=== PATIENT | male | born 1950 | race Caucasian/White ===

== ENCOUNTER 2020-06-15 08:16 | Outpatient (NON) | payer MEDICARE, SELFPAY ==
[2020-06-16 01:03] LABS: SARS-CoV-2 RNA PCR Negative
== END 2020-06-15 08:17 ==
PROVIDERS: PCP Physician Assistant; Visit Provider Physician Assistant
DX: Z20.828 Contact with and (suspected) exposure to other viral communicable diseases (principal)
CPT/HCPCS: 87635; C9803; U0003

== ENCOUNTER 2021-04-11 02:19 | Day surgery (SDC) | payer MEDICARE, SELFPAY ==
[2021-04-02 09:08] VITALS: BMI 36.6
--- NOTE | 2021-04-10 12:48 | PM.HPGS ---
History of Present Illness History of Present Illness Consent: Risks, benefits, and alternatives have been discussed and questions answered. Patient agrees to proceed with procedure. Chief complaint: hx of colon polyps Z12.11 Narrative: Lamin Ann is a 71 year old male referred for colon cancer screening. He had a couple of polyps removed 6 years ago Review of Systems Review of Systems: All systems reviewed & are unremarkable except as noted in HPI and below PMFSH Past Medical History Medical History CKD (chronic kidney disease) stage V COPD (chronic obstructive pulmonary disease) History of heart attack 2009 Hyperlipidemia Hypertension Surgical History Surgical History History of coronary artery stent placement x1 Family History Family History Father Family history of primary malignant neoplasm of liver Social History Social History Years smoked: 50 Smoking status: Former smoker Tobacco type: cigarettes Alcohol intake: current Drinks per week: 3 Substance use: never Substance use type: does not use Living arrangements: with family Spiritual care concerns: No Meds Home Medications and Allergies Home Medications Medication Instructions Recorded Confirmed Type amlodipine 10 mg PO DAILY 04/02/21 04/11/21 History atorvastatin 10 mg PO DAILY 04/02/21 04/11/21 History calcitriol 0.25 mcg PO DAILY 04/02/21 04/11/21 History cefuroxime axetil 500 mg PO DAILY 04/02/21 04/11/21 History fluticasone furoate-vilanterol 1 inh INHALATION PRN PRN 04/02/21 04/11/21 History [Breo Ellipta] hydralazine 25 mg PO DAILY 04/02/21 04/11/21 History ipratropium-albuterol [Combivent 1 spray INHALATION PRN PRN 04/02/21 04/11/21 History Respimat] methylprednisolone 4 mg PO DAILY 04/02/21 04/11/21 History metoprolol tartrate 100 mg PO DAILY 04/02/21 04/11/21 History Allergies Allergy/AdvReac Type Severity Reaction Status Date / Time No Known Allergies Allergy Verified 04/11/21 08:10 Exam Resp: Auscultation: clear to auscultation bilaterally Cardio: Rate: regular rate Rhythm: regular rhythm GI: GI Palp: Yes Soft to palpation and No Tenderness to palpation present (GI) Assessment and Plan Assessment and plan (1) Colon cancer screening: Code(s): Z12.11 - Encounter for screening for malignant neoplasm of colon Status: Acute Assessment and Plan: Colonoscopy with possible biopsy or polypectomy or cautery or injection of substances.
--- NOTE | 2021-04-10 13:28 | WPDANESEPPF ---
Anes - Initial Pre Proc Eval Procedure: Operation Date: 04/11/21 09:00 Proposed Procedures p Screening Colonoscopy - Bebeto Rojas MD Date/Time: 04/10/21 13:28 Surgeon: Bebeto Rojas MD Pre Op Diagnosis: hx of colon polyps Z12.11 Patient Data Age: 71 Gender: M Height: 1.88 m Weight: 129.54 kg Allergies Allergy/AdvReac Type Severity Reaction Status Date / Time No Known Allergies Allergy Verified 04/11/21 08:10 Home Medications Medication Instructions Recorded Confirmed Type amlodipine 10 mg PO DAILY 04/02/21 04/11/21 History atorvastatin 10 mg PO DAILY 04/02/21 04/11/21 History calcitriol 0.25 mcg PO DAILY 04/02/21 04/11/21 History cefuroxime axetil 500 mg PO DAILY 04/02/21 04/11/21 History fluticasone furoate-vilanterol 1 inh INHALATION PRN PRN 04/02/21 04/11/21 History [Breo Ellipta] hydralazine 25 mg PO DAILY 04/02/21 04/11/21 History ipratropium-albuterol [Combivent 1 spray INHALATION PRN PRN 04/02/21 04/11/21 History Respimat] methylprednisolone 4 mg PO DAILY 04/02/21 04/11/21 History metoprolol tartrate 100 mg PO DAILY 04/02/21 04/11/21 History Patient hx anesthesia problems: none Family hx anesthesia problems: none PMFSH Past Medical History Medical History CKD (chronic kidney disease) stage V COPD (chronic obstructive pulmonary disease) History of heart attack 2009 Hyperlipidemia Hypertension Surgical History Surgical History History of coronary artery stent placement x1 Family History Family History Father Family history of primary malignant neoplasm of liver Social History Social History Years smoked: 50 Smoking status: Former smoker Tobacco type: cigarettes Alcohol intake: current Drinks per week: 3 Substance use: never Substance use type: does not use Living arrangements: with family Spiritual care concerns: No Anes - Eval Final PreProcedure Day of Procedure 04/10/21 13:28 Patient weight: obese Heart: regular rate and rhythm Lungs: clear to auscultation and normal air movement Airway: Mallampati scale class II Neurological: alert and oriented Last oral intake: >/= 8 hours ASA classification: III Emergent: no Anesthesia type and monitoring: general GIVS and standard monitoring Informed Consent: The patient's anesthetic plan and its attendant risks and benefits were discussed with the patient/family/POA. Questions were solicited and answers provided to the satisfaction of the patient/family/POA.
[2021-04-11 08:12] VITALS: BP 121/92; PULSE 104; RESP 22; TEMP 36; O2SAT 95
[2021-04-11] MEDS: SODIUM CHLORIDE 0.9% IV 500 ML 10 ML IV CONT (08:22)
[2021-04-11 09:16] VITALS: BP 112/67; PULSE 91; RESP 30; O2SAT 97
[2021-04-11 09:26] VITALS: BP 113/64; PULSE 88; RESP 26; O2SAT 96
[2021-04-11 09:36] VITALS: BP 128/80; PULSE 87; RESP 21; O2SAT 95
== END 2021-04-11 09:56 | disposition home or self-care (01) ==
PROVIDERS: PCP Physician Assistant; Visit Provider Internal Medicine Gastroenterology
PROC: 0DJD8ZZ Inspection of Lower Intestinal Tract, Via Natural or Artificial Opening Endoscopic (ICD-10-PCS; CPT 45378; principal; 2021-04-11 09:00)
DX: Z12.11 Encounter for screening for malignant neoplasm of colon (principal); D12.2 Benign neoplasm of ascending colon; K57.30 Diverticulosis of large intestine without perforation or abscess without bleeding; I12.0 Hypertensive chronic kidney disease with stage 5 chronic kidney disease or end stage renal disease; N18.5 Chronic kidney disease, stage 5; I25.2 Old myocardial infarction; J44.9 Chronic obstructive pulmonary disease, unspecified; E78.5 Hyperlipidemia, unspecified; Z95.5 Presence of coronary angioplasty implant and graft; Z87.891 Personal history of nicotine dependence
CPT/HCPCS: 45385; 45381; 45380; 88305; J2704; J7040

== ENCOUNTER 2021-05-04 12:09 | Emergency (ER) | payer MEDICARE, SELFPAY ==
[2021-05-04 12:25] VITALS: BP 103/63; PULSE 94; RESP 18; TEMP 36.4; O2SAT 96
--- NOTE | 2021-05-04 13:12 | ED.SKABFB ---
HPI - Skin/Abscess/Foreign Bdy General Chief complaint: Skin/Abscess/Foreign Body Stated complaint: Insect Bite Lt Foot History of Present Illness HPI narrative: Patient is a 71-year-old male who presents complaining of left foot pain. Patient reports pain to left great toe with surrounding erythema x2 days. Reports difficulty ambulating and pain with ambulating. He denies injury. He denies taking vdzr-nsd-xyoskfw medications for pain prior to arrival. Patient denies fever, chills, body aches or other signs of systemic illness. Patient has a significant medical history which includes ESRD, gout, COPD and hypertension among others. Related Data Home Medications Medication Instructions Recorded Confirmed Combivent Respimat 1 spray INHALATION PRN PRN 04/02/21 05/04/21 amlodipine 10 mg PO DAILY 04/02/21 05/04/21 atorvastatin 10 mg PO DAILY 04/02/21 05/04/21 calcitriol 0.25 mcg PO DAILY 04/02/21 05/04/21 hydralazine 25 mg PO BID 04/02/21 05/04/21 aspirin [Adult Aspirin] 81 mg PO DAILY 05/04/21 05/04/21 furosemide 80 mg PO BID 05/04/21 05/04/21 hjyakrqtfxfs-adz-aswn-FA-vit K 1 tablet PO DAILY 05/04/21 05/04/21 [Adults Multivitamin] omega-3 fatty acids-vitamin E 2 cap PO BID 05/04/21 05/04/21 [Fish Oil] sodium bicarbonate 1,300 mg PO TID 05/04/21 05/04/21 Allergies Allergy/AdvReac Type Severity Reaction Status Date / Time No Known Allergies Allergy Verified 05/04/21 13:06 Review of Systems Review of Systems: CONSTITUTIONAL: Denies fever, chills, or sweats. EYES: Denies visual changes, redness, or discharge. ENT: Denies rhinorrhea, congestion, sore throat, or otalgia. CARDIOVASCULAR: Denies chest pain, palpitations, or edema. RESPIRATORY: Denies cough or dyspnea. GASTROINTESTINAL: Denies abdominal pain, nausea, vomiting, or diarrhea. GENITOURINARY: Denies dysuria or hematuria. SKIN: Denies rash or itching. MUSCULOSKELETAL: Reports left great toe pain NEUROLOGIC: Denies headache, numbness, dizziness, or weakness. PSYCHIATRIC: Denies anxiety or depression. [facility] Past Medical History Medical History CKD (chronic kidney disease) stage V COPD (chronic obstructive pulmonary disease) Gout History of heart attack 2010 Hyperlipidemia Hypertension Prostate cancer Surgical History Surgical History H/O prostatectomy History of coronary artery stent placement x1 Family History Family History Father Family history of primary malignant neoplasm of liver Social History Social History Years smoked: 50 Smoking status: Former smoker Tobacco type: cigarettes Alcohol intake: current Drinks per week: 3 Substance use: never Substance use type: does not use Spiritual care concerns: No Comments At the time of signature, I have reviewed and agree with nursing past medical, surgical, social, and family history unless otherwise noted. Please see nursing chart for further information. There is no relevant family history pertinent to the presenting complaint. Exam Narrative: GENERAL: Well-appearing, well-nourished, and in no acute distress. HEAD: Normocephalic, atraumatic. EYES: EOMI. No redness or drainage. Conjunctiva are normal. ENT: Mucous membranes pink and moist. CHEST: No respiratory distress. HEART: Regular rate and rhythm. EXTREMITIES: Normal range of motion. Erythema and edema to area surrounding first MTP. Tenderness with palpation. SKIN: Warm, dry, no rash. NEURO: No focal deficits. Alert and oriented x3. Gait steady. PSYCH: Normal affect. No signs of depression or anxiety. Course Vital Signs Vital signs: Vital Signs Temperature 36.4 C 05/04/21 12:25 Pulse Rate 94 05/04/21 12:25 Respiratory Rate 18 05/04/21 12:25 Blood Pressure 103/63 05/04/21
== END 2021-05-04 13:33 | disposition home or self-care (01) ==
PROVIDERS: Emergency Provider Nurse Practitioner; PCP Physician Assistant
DX: M10.9 Gout, unspecified (principal); Z87.891 Personal history of nicotine dependence; J44.9 Chronic obstructive pulmonary disease, unspecified; E78.5 Hyperlipidemia, unspecified; I10 Essential (primary) hypertension; I12.0 Hypertensive chronic kidney disease with stage 5 chronic kidney disease or end stage renal disease; N18.6 End stage renal disease; I25.2 Old myocardial infarction; Z85.46 Personal history of malignant neoplasm of prostate; Z90.79 Acquired absence of other genital organ(s); Z95.5 Presence of coronary angioplasty implant and graft
CPT/HCPCS: 99213; G0463

== ENCOUNTER → 2021-08-07 09:57 | Outpatient (CLI) | payer MEDICARE, SELFPAY ==
[2021-08-08 20:55] LABS: SARS-CoV-2 RNA PCR Positive
== END ==
PROVIDERS: PCP Physician Assistant; Visit Provider Physician Assistant
DX: U07.1 COVID-19 (principal)
CPT/HCPCS: C9803; U0003; U0005

== ENCOUNTER → 2021-08-20 13:03 | Outpatient (CLI) | payer MEDICARE, SELFPAY ==
--- NOTE | ~2021-08-20 | XR_ITS ---
EXAMINATION: XR chest 2V EXAM DATE: 08/20/2021 13:33 INDICATION: Acute exacerbation of chronic obstructive airways disease. TECHNIQUE: Frontal and lateral projections of the chest obtained and reviewed. Comparison is made to prior examination from 01/12/2018 FINDINGS: There is ill-defined right basilar airspace disease laterally which was not present on aldo or study. Probably pneumonia or atelectasis. Mild hyperinflation. Cardiomediastinal silhouette is nor mal. There is no pneumothorax suspected. There are no pleural effusions. IMPRESSION: Right basilar subsegmental pneumonia or atelectasis. Reviewed, dictated and finalized at location G. ORT GUIDE
== END ==
PROVIDERS: PCP Physician Assistant; Visit Provider Physician Assistant
DX: J44.1 Chronic obstructive pulmonary disease with (acute) exacerbation (principal); R91.8 Other nonspecific abnormal finding of lung field
CPT/HCPCS: 71046

== ENCOUNTER → 2021-08-29 12:27 | Outpatient (CLI) | payer MEDICARE, SELFPAY ==
--- NOTE | ~2021-08-29 | XR_ITS ---
XR chest 2V 08/29/2021 13:03 Indication: Covid pneumonia Procedure: 2 view chest Comparison: 08/20/2021 Findings: Bibasilar airspace disease, right greater than left, consistent with pneumonia. Borderline heart size. No significant effusion. No acute osseous abnormality. Impression: 1: Bibasilar airspace disease, right greater than left, compatible with pneumonia. Reviewed, dictated and finalized at location B. NI RELATIONS OFFICER Impression: 1: Bibasilar airspace disease, right greater than left, compatible with pneumon ia.
== END ==
PROVIDERS: PCP Physician Assistant; Visit Provider Physician Assistant
DX: U07.1 COVID-19 (principal); J12.82 Pneumonia due to coronavirus disease 2019; R91.8 Other nonspecific abnormal finding of lung field
CPT/HCPCS: 71046

== ENCOUNTER 2021-10-01 11:20 | Emergency (ER) | payer MEDICARE, SELFPAY ==
[2021-10-01 11:28] VITALS: BP 141/68; PULSE 96; RESP 40; TEMP 36.4; O2SAT 93
--- NOTE | 2021-10-01 11:29 | ED.URI ---
HPI - URI/Sore Throat General Chief Complaint: Shortness of Breath/Dyspnea Stated Complaint: shortness of breath Time Seen by Provider: 10/01/21 11:40 Source: patient, RN notes reviewed and old records reviewed Mode of arrival: ambulatory Limitations: no limitations History of Present Illness HPI Narrative: 71-year-old male patient [facility] with complaints of shortness of breath and difficulty breathing. Reports diagnosed with Covid pneumonia in August and has had difficulty breathing since then. Spoke with PCP this morning who encouraged patient to go to the emergency room. Patient and daughter reports patient has had difficulty breathing for the last 2 weeks. Patient is not on oxygen at home. Has taken Combivent inhaler as needed. Not taking Breo inhaler. Has history of COPD and chronic kidney disease. Denies fever. MD elicited complaint: cough, sore throat, rhinorrhea and nasal congestion Related Data Home Medications Medication Instructions Recorded Confirmed Combivent Respimat 1 spray INHALATION PRN PRN 04/02/21 05/04/21 amlodipine 10 mg PO DAILY 04/02/21 05/04/21 atorvastatin 10 mg PO DAILY 04/02/21 05/04/21 calcitriol 0.25 mcg PO DAILY 04/02/21 05/04/21 hydralazine 25 mg PO BID 04/02/21 05/04/21 aspirin [Adult Aspirin] 81 mg PO DAILY 05/04/21 05/04/21 furosemide 80 mg PO BID 05/04/21 05/04/21 qhscvjrkurow-osl-wcpn-FA-vit K 1 tablet PO DAILY 05/04/21 05/04/21 [Adults Multivitamin] omega-3 fatty acids-vitamin E 2 cap PO BID 05/04/21 05/04/21 [Fish Oil] sodium bicarbonate 1,300 mg PO TID 05/04/21 05/04/21 Allergies Allergy/AdvReac Type Severity Reaction Status Date / Time No Known Allergies Allergy Verified 10/01/21 12:01 Review of Systems Review of Systems: CONSTITUTIONAL: Denies malaise, chills, sweats, or fever. EYES: Denies visual changes, redness, or discharge. ENT: Reports rhinorrhea, congestion, sinus pain, otalgia and sore throat. CARDIOVASCULAR: Denies chest pain, palpitations, or edema. RESPIRATORY: Reports cough. Denies dyspnea. GASTROINTESTINAL: Denies abdominal pain, nausea, vomiting, diarrhea SKIN: Denies rash or itching. MUSCULOSKELETAL: Denies myalgia. NEUROLOGIC: Denies headache. All systems reviewed & are unremarkable except as noted in HPI and below PMFSH Past Medical History Medical History CKD (chronic kidney disease) stage V COPD (chronic obstructive pulmonary disease) Gout History of heart attack 2010 Hyperlipidemia Hypertension Prostate cancer Surgical History Surgical History H/O prostatectomy History of coronary artery stent placement x1 Family History Family History Father Family history of primary malignant neoplasm of liver Social History Social History Years smoked: 50 Smoking status: Former smoker Tobacco type: cigarettes Alcohol intake: current Drinks per week: 3 Substance use: never Substance use type: does not use Spiritual care concerns: No Comments At time of signature, agree with nursing past medical, surgical, social and family history. There is no relevant family history pertinent to the presenting complaint Exam Narrative: GENERAL: present in exam room. Short of breath, difficulty breathing, increased work of effort with breathing. Tripoding sitting on the gurney. HEAD: Normocephalic EYES: Conjunctivae clear ENT: Nares patent and clear discharge. Mucous membranes moist. NECK: Supple. No lymphadenopathy CHEST: Clear to auscultation anterior and posterior. Decreased air movement throughout lung billy. No wheezing, rhonchi, rales, or stridor. Difficulty speaking in full sentences. HEART: Regular rate and rhythm. No murmur heard. SKIN: Pale, warm, dry, no rash. NEURO
[2021-10-01 11:33] VITALS: O2SAT 89
[2021-10-01 11:36] VITALS: O2SAT 94
== END 2021-10-01 11:55 | disposition short-term general hospital (02) ==
PROVIDERS: Emergency Provider Nurse Practitioner Family; PCP Physician Assistant
DX: R06.03 Acute respiratory distress (principal); Z86.16 Personal history of COVID-19; J44.9 Chronic obstructive pulmonary disease, unspecified; I12.0 Hypertensive chronic kidney disease with stage 5 chronic kidney disease or end stage renal disease; N18.5 Chronic kidney disease, stage 5; I25.2 Old myocardial infarction; E78.5 Hyperlipidemia, unspecified; Z85.46 Personal history of malignant neoplasm of prostate; Z90.79 Acquired absence of other genital organ(s); Z95.5 Presence of coronary angioplasty implant and graft; Z87.891 Personal history of nicotine dependence
CPT/HCPCS: 99215; G0463

== ENCOUNTER 2021-10-01 12:26 | Inpatient (IN) | payer MEDICARE, SELFPAY ==
[2021-10-01] VITALS (29 sets, daily range): BP systolic 129–173; BP diastolic 74–106; PULSE 81–112; RESP 18–29; TEMP 35.8–36.7; O2SAT 90–98; BMI 37.2; BMI 37.0
--- NOTE | ~2021-10-01 | XR_ITS ---
XR chest 2V 10/01/2021 12:49 Indication: Shortness breath. Hypertension. Procedure: AP and lateral views of the chest Comparison: Comparison to multiple prior studies sequentially, with oldest reviewed study dated 12/20. Findings: Bibasilar airspace disease which may represent atelectasis and/or pneumonia. Small pleural effusions. Cardiomegaly. No pneumothorax. No edema. Impression: 1: Bibasilar airspace disease may represent pneumonia and/or atelectasis. 2: Small pleural effusions. Reviewed, dictated and finalized at location A. UNTS RECEIVABLE ASSOCIATE Impression: 1: Bibasilar airspace disease may represent pneumonia and/or atelectasis. 2: Small pleural effusions.
--- NOTE | ~2021-10-01 | NM_ITS ---
EXAMINATION: NM pulmonary perfusion DATE: 10/03/2021 12:37 INDICATION: Shortness of breath. TECHNIQUE: 5.5 mCi Tc-99m MAA was administered intravenously for perfusion images. Scintigraphic nisha ges of the chest were obtained. COMPARISON: Chest single view 10/03/2021 FINDINGS: Perfusion images show matched moderate sized and large defects in right lower lobe. There are matched small defects in left lower lobe. IMPRESSION: 1. Nondiagnostic (intermediate probability for pulmonary embolism). Reviewed, dictated and finalized at location A. STMENT BANKING ASSOCIATE
--- NOTE | ~2021-10-01 | US_ITS ---
EXAMINATION: US venous doppler [facility] DATE: 10/04/2021 11:17 INDICATION: Lower limb edema. TECHNIQUE: Grayscale ultrasound images without and with compression and Doppler ultrasound images of the bilateral lower extremity veins were obtained. COMPARISON: None. FINDINGS: The visualized portions of right common femoral vein, profunda (deep) femoral vein, femoral vein, pop liteal vein, peroneal veins, posterior tibial veins, and greater saphenous vein outflow are patent. The visualized portions of left common femoral vein, profunda femoral vein, femoral vein, popliteal v ein, peroneal veins, posterior tibial veins, and greater saphenous vein outflow are patent. IMPRESSION: 1. No deep venous thrombosis. Reviewed, dictated and finalized at location A. ITION MAKING MACHINE OPERATOR
--- NOTE | ~2021-10-01 | XR_ITS ---
XR chest 1V portable DATE: 10/03/2021 05:49 INDICATION: Shortness of breath TECHNIQUE: Portable AP chest on 10/03/2021 0529 hours COMPARISON: 10/01/2021 AP and lateral chest FINDINGS: There is cardiomegaly. There is mild pulmonary vascular congestion. There are Gina B-line s and mild prominence of minor fissure, suggesting pulmonary interstitial and subpleural edema. There are bilateral mild pleural effusions, right greater than left. There are bibasilar lower lung infiltrates and/atelectasis, also greater on the right. Diffuse osteopenia. IMPRESSION: Cardiomegaly, congestive changes including subpleural, pulmonary interstitial edema and m ild pleural effusions Bilateral basilar infiltrates, right greater than left, which may be due to pneumonia, aspiration Pulmonary interstitial and subpleural edema appear new since 10/01/2021 Reviewed, dictated and finalized at location A. ET PRINTING OPERATOR IMPRESSION: Cardiomegaly, congestive changes including subpleural, pulmonary in terstitial edema and mild pleural effusions Bilateral basilar infiltrates, right greater than left, which may be due to pne umonia, aspiration Pulmonary interstitial and subpleural edema appear new since 10/01/2021
--- NOTE | 2021-10-01 12:33 | ECG_ITS ---
Measurements Intervals [place] Rate: 87 P: 40 HI: 197 QRS: -79 QRSD: 151 T: 84 QT: 409 QTc: 493 Interpretive Statements SINUS RHYTHM WITH OCCASIONAL SUPRAVENTRICULAR PREMATURE COMPLEXES RIGHT BUNDLE BRANCH BLOCK [120+ ms QRS DURATION, UPRIGHT V1, 40+ ms S IN I/aVL/V4/V5/V6] LEFT ANTERIOR FASCICULAR BLOCK [QRS AXIS <= -45, QR IN I, RS IN II] ABNORMAL ECG NO PREVIOUS ECG AVAILABLE FOR COMPARISON Electronically Signed On 10-01-2021 13:43:30 [employer]ICE ROOM WORKER by Romario Anderson M.D.
--- NOTE | 2021-10-01 12:39 | ED.SOB ---
HPI - SOB/Dyspnea General Chief Complaint: Shortness of Breath/Dyspnea Stated Complaint: dyspnea Time Seen by Provider: 10/01/21 12:39 Source: patient Mode of arrival: EMS Limitations: no limitations History of Present Illness HPI Narrative: The patient is a 71 yo male with a history of COPD, chronic kidney disease, presenting to the emergency department for evaluation of cough, shortness of breath. Patient states he has been feeling unwell over the past week, subjective fever, chills at home. Patient reports productive cough, difficulty breathing. He denies any chest pain. No pleuritic pain. Denies abdominal pain, nausea or vomiting. Denies sore throat, rhinorrhea, congestion, loss of sense of taste or smell. No leg swelling or calf pain. Patient was seen at an urgent care after his primary care physician referred him to come to the hospital, patient states he went to an urgent care because he did not want to be admitted to the hospital. At the urgent care, patient was found to be hypoxic and placed on oxygen via nasal cannula. Patient states he is not on any oxygen at home. Patient is vaccinated and boosted for Covid. No recent sick contacts. Related Data Home Medications Medication Instructions Recorded Confirmed Combivent Respimat 1 spray INHALATION PRN PRN 04/02/21 10/01/21 amlodipine 10 mg PO DAILY 04/02/21 10/01/21 atorvastatin 10 mg PO DAILY 04/02/21 10/01/21 calcitriol 0.25 mcg PO DAILY 04/02/21 10/01/21 hydralazine 25 mg PO BID 04/02/21 10/01/21 aspirin [Adult Aspirin] 81 mg PO DAILY 05/04/21 10/01/21 furosemide 80 mg PO BID 05/04/21 10/01/21 kbovfndhywop-yed-wwts-FA-vit K 1 tablet PO DAILY 05/04/21 10/01/21 [Adults Multivitamin] omega-3 fatty acids-vitamin E 2 cap PO BID 05/04/21 10/01/21 [Fish Oil] sodium bicarbonate 1,300 mg PO TID 05/04/21 10/01/21 Allergies Allergy/AdvReac Type Severity Reaction Status Date / Time No Known Allergies Allergy Unverified 10/01/21 12:24 Review of Systems Review of Systems: CONSTITUTIONAL: Reports subjective fever and chills EYES: Denies visual changes, redness, or discharge. ENT: Denies rhinorrhea, congestion, sore throat, or otalgia. CARDIOVASCULAR: Denies chest pain, palpitations, or edema. RESPIRATORY: Reports cough and shortness of breath GASTROINTESTINAL: Denies abdominal pain, nausea, vomiting, or diarrhea. GENITOURINARY: Denies dysuria or hematuria. SKIN: Denies rash or itching. MUSCULOSKELETAL: Denies back pain, joint pain, or myalgia. NEUROLOGIC: Denies headache, numbness, or weakness. [facility] Past Medical History Medical History (Updated 10/01/21 @ 15:24 by Loretta Jain APRN) CKD (chronic kidney disease) stage V COPD (chronic obstructive pulmonary disease) Gout History of heart attack 2010 Hyperlipidemia Hypertension Prostate cancer Surgical History Surgical History H/O prostatectomy History of coronary artery stent placement x1 Family History Family History Father Family history of primary malignant neoplasm of liver Social History Social History Years smoked: 50 Smoking status: Former smoker Tobacco type: cigarettes Alcohol intake: current Drinks per week: 3 Substance use: never Substance use type: does not use Spiritual care concerns: No Exam Narrative: GENERAL: Awake, alert, conversant HEAD: Normocephalic, atraumatic. EYES: PERRLA and EOMI. ENT: Nares clear, no rhinorrhea or epistaxis. Mucous membranes moist. NECK: Supple. CHEST: Tachypneic, hypoxic on room air, coarse breath sounds bilaterally, decreased aeration at the bases, wheezing bilaterally HEART: Regular rate, sinus rhythm ABDOMEN:Non distended, non tender EXTREMITIES: Normal range of motion. No edema. SKIN: Warm, dry, no rash. NEURO:No focal deficits. Alert and oriented x3 Cou
[2021-10-01 12:41] LABS: Basophils Absolute Auto 0.1 K/mm3 (0.0-0.1); Basophils Percent Auto 0.5 % (0.2-1.2); Eosinophils Absolute Auto 0.2 K/mm3 (0-0.3); Eosinophils Percent Auto 1.9 % (0-4.4); Hematocrit 35.4 % (42.0-52.0); Hemoglobin 11.1 g/dL (14.0-18.0); Immature Granulocyte Absolute 0.03 K/mm3 (0.00-0.031); Immature Granulocyte Percent A 0.3 % (0-0.5); Lymphocytes Absolute Auto 1.32 K/mm3 (0.9-3.2); Lymphocytes Percent Auto 12.9 % (18.3-44.2); Mean Corpuscular HGB Conc 31.4 g/dl (32-36); Mean Corpuscular Hemoglobin 28.8 pg (26-34); Mean Corpuscular Volume 91.9 fl (80-100); Mean Platelet Volume 8.6 fl (7.4-10.4); Monocytes Absolute Auto 0.7 K/mm3 (0.1-0.6); Monocytes Percent Auto 6.4 % (2.6-8.5); Platelet Count Result 310 k/mm3 (150-375); Red Blood Count 3.85 M/mm3 (4.6-6.20); Red Cell Distribution Width 17.9 % (11.5-14.5); White Blood Count 10.2 K/mm3 (4.5-10.0)
[2021-10-01] MEDS: SODIUM CHLORIDE 0.9% IV 1,000 ML 999 ML IV CONT (13:00)
[2021-10-01 13:19] LABS: Basophils Absolute Auto 0.1 K/mm3 (0.0-0.1); Basophils Percent Auto 0.5 % (0.2-1.2); Eosinophils Absolute Auto 0.2 K/mm3 (0-0.3); Eosinophils Percent Auto 1.6 % (0-4.4); Hematocrit 36.8 % (42.0-52.0); Hemoglobin 11.5 g/dL (14.0-18.0); Immature Granulocyte Absolute 0.05 K/mm3 (0.00-0.031); Immature Granulocyte Percent A 0.5 % (0-0.5); Lymphocytes Absolute Auto 1.43 K/mm3 (0.9-3.2); Lymphocytes Percent Auto 13.6 % (18.3-44.2); Mean Corpuscular HGB Conc 31.3 g/dl (32-36); Mean Corpuscular Hemoglobin 28.6 pg (26-34); Mean Corpuscular Volume 91.5 fl (80-100); Monocytes Absolute Auto 0.7 K/mm3 (0.1-0.6); Monocytes Percent Auto 6.4 % (2.6-8.5); Neutrophils Absolute Auto 8.2 K/mm3 (1.3-6.7); Neutrophils Percent Auto 77.4 % (45.5-73.1); Platelet Count Result 321 k/mm3 (150-375); Red Blood Count 4.02 M/mm3 (4.6-6.20); Red Cell Distribution Width 17.7 % (11.5-14.5); White Blood Count 10.5 K/mm3 (4.5-10.0)
[2021-10-01 13:27] LABS: Lactic Acid Reflex 1.3 mmol/L (0.7-2.1)
[2021-10-01 13:30] LABS: INR 1.1; Prothrombin Time 13.7 Seconds (11.1-14.7)
[2021-10-01 13:31] LABS: Alanine Aminotransferase 23 U/L (4-50); Albumin Level 4.4 g/dL (3.5-5.1); Alkaline Phosphatase 108 U/L (38-126); Anion Gap 8 mmol/L (8-16); Aspartate Amino Transferase 26 U/L (17-59); Blood Urea Nitrogen 46 mg/dL (9-20); Calcium 9.6 mg/dL (8.4-10.2); Carbon Dioxide 24 mmol/L (22-30); Chloride 109 mmol/L (98-107); Estimated CRCL calculation 22 ml/min; Estimated Glomerular Filt Rate 19; Glucose 105 mg/dL (65-110); Potassium 4.6 mmol/L (3.4-5.0); Sodium 141 mmol/L (137-145)
[2021-10-01 13:47] LABS: Add Urine Microscopic? YES; Appearance Urine Clear (Clear); Bilirubin Urine Negative (Negative); Blood Urine Negative (Negative); Color Urine Yellow (Yellow); Glucose Urine UA Negative (Negative); Ketones Urine Negative (Negative); Leukocyte Esterase Ur Negative LEU/UL (Negative); Nitrate Urine Negative (Negative); Protein Urine 2+ mg/dL (Negative); RBC Urine 0-2 /hpf (0-2); Specific Grav Ur 1.017 (1.001-1.035); Squamous Epithelial Cell Urine Rare /hpf (Few); Urobilinogen Urine Negative mg/dL (<2.0)
[2021-10-01 13:52] LABS: Troponin I 0.071 ng/mL (0.000-0.034)
[2021-10-01] MEDS: methylPREDNISolone SOD SUCC 125 MG VIAL IV PUSH (14:31)
[2021-10-01] MEDS: ALBUTEROL SULFATE NEB 2.5 MG/0.5 ML INH 5 MG INHALATION ×2 (14:50→20:20)
[2021-10-01] MEDS: IPRATROPIUM BR 0.02% INH SOLN 0.5 MG/2.5 ML VIAL INHALATION ×2 (14:51→20:20)
--- NOTE | 2021-10-01 15:02 | PC.NURSE ---
Called lab and spoke to Jose D to add on BNP
--- NOTE | 2021-10-01 15:15 | PM.IMHP ---
H&P: HPI History of Present Illness Date/Time: 10/01/21 15:15 Patient is a 71-year-old male with a past medical history of COPD, CKD stage 5, NH in 2009 with 1 stent placement, and hypertension. Patient presented to [facility] Emergency Department due to increasing shortness of breath. Patient reports that he was diagnosed with COVID-19 pneumonia in August and has had subsequent respiratory distress since that admission. S patient has been feeling increasingly worse over the past week and reports subjective fever, chills, productive cough and difficulty breathing. He denies any acute chest pain or pleuritic chest pain. Denies abdominal pain, nausea vomiting or diarrhea. No leg swelling or calf pain upon exam. Patient was evaluated at the urgent care this afternoon he was deferred to the emergency department after having episodes of hypoxia, SpO2 in the 80s. Oxygen was applied via nasal cannula the patient was brought to the emergency department. Patient does not wear oxygen at baseline and he has been vaccinated with the COVID booster as well. He denies any recent sick contacts. While in the emergency department labs and imaging were obtained. WBC 10.5, hemoglobin 11.5, hematocrit 36.8, platelets 321, sodium 141, potassium 4.6, chloride 109, BUN 46, creatinine 3.3 and a GFR 19. Patient also had an elevated troponin 0.071, possibly contribute this to CKD stage 5, patient denied chest pain and EKG was performed which revealed normal sinus rhythm with right bundle-branch block. Near my exam the patient was wearing 2 L of oxygen per nasal cannula and did not appear to be in acute distress. Will continue patient's home medications and provide nebulizer treatments and steroids for COPD exacerbation. Chief Complaint: SOB Review of Systems Review of Systems: All systems reviewed & are unremarkable except as noted in HPI and below [facility] Past Medical History Medical History (Updated 10/01/21 @ 15:24 by Loretta Jain APRN) CKD (chronic kidney disease) stage V COPD (chronic obstructive pulmonary disease) Gout History of heart attack 2010 Hyperlipidemia Hypertension Prostate cancer Surgical History Surgical History H/O prostatectomy History of coronary artery stent placement x1 Family History Family History Father Family history of primary malignant neoplasm of liver Social History Social History Years smoked: 50 Smoking status: Former smoker Tobacco type: cigarettes Alcohol intake: current Drinks per week: 3 Substance use: never Substance use type: does not use Spiritual care concerns: No Meds Home Medications and Allergies Home Medications Medication Instructions Recorded Confirmed Type Combivent Respimat 1 spray INHALATION PRN PRN 04/02/21 10/01/21 History amlodipine 10 mg PO DAILY 04/02/21 10/01/21 History atorvastatin 10 mg PO DAILY 04/02/21 10/01/21 History calcitriol 0.25 mcg PO DAILY 04/02/21 10/01/21 History hydralazine 25 mg PO BID 04/02/21 10/01/21 History aspirin [Adult Aspirin] 81 mg PO DAILY 05/04/21 10/01/21 History furosemide 80 mg PO BID 05/04/21 10/01/21 History lzgszhcforem-hrr-dgel-FA-vit K 1 tablet PO DAILY 05/04/21 10/01/21 History [Adults Multivitamin] omega-3 fatty acids-vitamin E 2 cap PO BID 05/04/21 10/01/21 History [Fish Oil] sodium bicarbonate 1,300 mg PO TID 05/04/21 10/01/21 History Allergies Allergy/AdvReac Type Severity Reaction Status Date / Time No Known Allergies Allergy Unverified 10/01/21 12:24 Vital Signs Vital Signs - 24 hr 10/01/21 12:33 10/01/21 13:04 10/01/21 13:09 Temperature 97.6 F Pulse Rate 84 86 Respiratory Rate 24 H 26 H Blood Pressure 147/84 H 150/83 H Pulse Oximetry 95 97 98 10/01/21 13:16 10/01/21 13:31 10/01/21 13:47 Temperature Pulse
--- NOTE | 2021-10-01 15:28 | ECHO_ITS ---
Patient Info Name: Lamin Ann Age: 71 years : 1950 Gender: Male Ht: 74 in Wt: 229 lbs BSA: 2.35 m2 HR: 93 bpm BP: 154 / 85 mmHg Heart Rhythm: Sinus Rhythm Technical Quality: Fair Exam Date: 10/01/2021 4:29 PM Exam Location: [facility] Pulmonary Patient Status: Outpatient Admit Date: 10/01/2021 Staff Ordering Physician: Loretta Jain APRN Nuclear Unit Operator: Nathalia Silverman RDCS Attending Provider: Britt Nicholson MD Referring Physician: Cristobal CHENG; Exam Type: CA echo doppler color flow Study Info Indications - sob Complete two-dimensional, color flow and Doppler transthoracic echocardiogram is performed. Summary 1. Complete two-dimensional, color flow and Doppler transthoracic echocardiogram is performed. 2. Left ventricular systolic function is mild to moderately reduced, estimated at 40-45%. 3. Left ventricular chamber dimension is severely enlarged. 4. There is mildly increased left ventricular wall thickness. 5. The left ventricular diastolic function is abnormal. 6. Left atrial chamber dimension is mildly enlarged. 7. There is mild aortic valve regurgitation. 8. There is mild mitral valve regurgitation. 9. There is mild tricuspid valve regurgitation. 10. The aortic root size at the sinus of Valsalva is mildly dilated. Left Ventricle Left ventricular systolic function is mild to moderately reduced, estimated at 40-45%. Left ventricular chamber dimension is severely enlarged. There is mildly increased left ventricular wall thickness. The left ventricular diastolic function is abnormal. Right Ventricle Right ventricular chamber dimension is normal. Right ventricular systolic function is normal. Left Atria Left atrial chamber dimension is mildly enlarged. Right Atria Right atrial chamber dimension is normal. Atrial Septum Intact interatrial septum visualized by color flow imaging. Aortic Valve The aortic valve is trileaflet. There is mild aortic valve sclerosis. There is no aortic valve stenosis. There is mild aortic valve regurgitation. Pulmonic Valve The pulmonic valve is normal. There is no pulmonic valve stenosis. There is trace pulmonic regurgitation. Mitral Valve The mitral valve has normal leaflets. There is no mitral valve stenosis. There is mild mitral valve regurgitation. Tricuspid Valve The tricuspid valve leaflets are normal. There is no significant tricuspid valve stenosis. There is mild tricuspid valve regurgitation. No pulmonary hypertension, estimated pulmonary arterial systolic pressure is 20 mmHg. Pericardium/Pleural The pericardium appears normal. There is no pericardial effusion. Inferior Vena Cava Normal inferior vena cava with <50% collapse upon inspiration consistent with elevated right atrial pressure, 10 mmHg. Aorta The aortic root size at the sinus of Valsalva is mildly dilated. Left Ventricular Outflow Tract Name Value Normal LVOT 2D LVOT Diameter 2.2 cm LVOT Doppler LVOT Peak Gradient 4 mmHg LVOT Mean Gradient 2 mmHg LVOT VTI
--- NOTE | 2021-10-01 17:56 | ADMGEN ---
This patient, Lamin Ann, was admitted to IMU Room 210-01. Patient/family oriented to hospital policies and general routines including ID bracelet, bed and alarms, visiting hours, pain management, procedures, bathroom and other care routines, personal items, smoking policy, room service/diet, and visiting hours. Information on how to activate the Rapid Response Team has been discussed. Patient/Family are encouraged to report perceived risks to care and to ask questions if they do not understand what they are told or what they should do.
--- NOTE | 2021-10-01 17:59 | PM.IMPN ---
Subjective Date/time seen: 10/01/21 17:59 Objective Data Vital Signs Vital Signs: Vital Signs - 24 hr 10/01/21 12:33 10/01/21 13:04 10/01/21 13:09 Temperature 97.6 F Pulse Rate 84 86 Respiratory Rate 24 H 26 H Blood Pressure 147/84 H 150/83 H Pulse Oximetry 95 97 98 10/01/21 13:16 10/01/21 13:31 10/01/21 13:47 Temperature Pulse Rate 87 88 89 Respiratory Rate 22 H 21 H 18 Blood Pressure 150/81 H 148/86 H 155/89 H Pulse Oximetry 97 96 97 10/01/21 14:02 10/01/21 14:17 10/01/21 14:32 Temperature Pulse Rate 86 86 93 Respiratory Rate 21 H 22 H 26 H Blood Pressure 147/82 H 130/106 H 147/78 H Pulse Oximetry 95 95 95 10/01/21 14:47 10/01/21 14:53 10/01/21 15:01 Temperature Pulse Rate 85 85 83 Respiratory Rate 19 26 H 19 Blood Pressure 139/86 129/78 Pulse Oximetry 95 98 10/01/21 15:03 10/01/21 15:15 10/01/21 15:30 Temperature Pulse Rate 81 86 85 Respiratory Rate 18 22 H 25 H Blood Pressure 134/85 153/99 H Pulse Oximetry 91 91 10/01/21 15:45 10/01/21 16:01 10/01/21 16:15 Temperature Pulse Rate 94 93 90 Respiratory Rate 29 H 24 H 25 H Blood Pressure 164/86 H 156/85 H 151/83 H Pulse Oximetry 92 91 91 10/01/21 16:30 10/01/21 16:46 10/01/21 17:01 Temperature Pulse Rate 91 94 92 Respiratory Rate 22 H 24 H 26 H Blood Pressure 162/83 H 165/85 H 158/85 H Pulse Oximetry 92 90 91 Intake/Output Intake/Output: Intake & Output 09/28/21 09/29/21 09/30/21 10/01/21 23:59 23:59 23:59 23:59 Intake Total 1300 Balance 1300 Meds/Results Medications: Active Medications Generic Name Dose Route Start Last Admin Trade Name Freq PRN Reason Stop Dose Admin Acetaminophen 650 mg 10/01/21 14:52 Acetaminophen 325 Mg Tablet PO Q4H PRN Mild Pain (1-3) or Fever Albuterol 5 mg 10/01/21 20:00 Albuterol Sulfate Neb 2.5 Mg/0.5 Ml Inh INHALATION Q6HRT [facility] Ceftriaxone Sodium/Dextrose 1 gm in 50 mls @ 100 mls/hr 10/02/21 13:00 Rocephin 1 Gm/D5w 50 Ml IVPB Q24H [facility] Azithromycin 500 mg in 250 mls @ 250 mls/hr 10/02/21 13:00 Zithromax IVPB Q24H SIL[facility]O Ipratropium Fletcher 0.5 mg 10/01/21 20:00 Ipratropium Br 0.02% Inh Soln 0.5 Mg/2.5 Ml Vial INHALATION Q6HRT [facility] Methylprednisolone Sodium Succinate 60 mg 10/01/21 18:00 Methylprednisolone Sod Succ 125 Mg Vial IV PUSH Q6HR [facility] Perflutren Lipid Microsphere 0 ml 10/01/21 15:27 Perflutren Lipid Microspheres 1.5 Ml Vial Diluted To 10 Ml Total Volume IV PUSH ONCE PRN adequate visualization Protocol Radiology Results: ITS Impressions Chest X-Ray 10/01/21 12:57 Impression: 1: Bibasilar airspace disease may represent pneumonia and/or atelectasis. 2: Small pleural effusions. Labs Labs: Laboratory Results - last 24 hr 10/01/21 10/01/21 10/01/21 12:35 12:35 13:04 WBC 10.2 H 10.5 H RBC 3.85 L 4.02 L Hgb 11.1 L 11.5 L Hct 35.4 L 36.8 L MCV 91.9 91.5 MCH 28.8 28.6 MCHC 31.4 L 31.3 L RDW 17.9 H 17.7 H Plt Count 310 321 MPV 8.6 9.0 Immature Gran % (Auto) 0.3 0.5 Neut % (Auto) 78.0 H 77.4 H Lymph % (Auto) 12.9 L 13.6 L Calloway % (Auto) 6.4 6.4 Eos % (Auto) 1.9 1.6 Baso % (Auto) 0.5 0.5 Lymph # (Auto) 1.32 1.43 Calloway # (Auto) 0.7 H 0.7 H Eos # (Auto) 0.2 0.2 Baso # (Auto) 0.1 0.1 Abs Immat Gran (auto) 0.03 0.05 H Absolute Neuts (auto) 8.0 H 8.2 H Absolute Nucleated RBC 0.0 0.0 Nucleated RBC % 0.0 0.0 PT INR APTT Sodium Cancelled Potassium Cancelled Chloride Cancelled Carbon Dioxide Cancelled Anion Gap Cancelled BUN Cancelled Creatinine Cancelled Estim Creat Clear Calc Cancelled Estimated GFR Cancelled Glucose Cancelled Lactic Acid Calcium Cancelled Total Bilirubin Cancelled AST Cancelled ALT Cancelled Alkaline Phosphatase Cancelled Troponin I C-Reactive Protein Total Protein
[2021-10-01] MEDS: methylPREDNISolone SOD SUCC 125 MG VIAL 60 MG IV PUSH ×2 (18:16→23:31)
[2021-10-01 19:02] LABS: NT Pro B Type Natriuretic Pept 3640 pg/mL (5-100)
[2021-10-01 19:26] LABS: Troponin I 0.061 ng/mL (0.000-0.034)
[2021-10-01 21:45] LABS: Troponin I 0.058 ng/mL (0.000-0.034)
[2021-10-02] VITALS (23 sets, daily range): BP systolic 141–169; BP diastolic 67–89; PULSE 84–114; RESP 16–22; TEMP 36.2–36.7; O2SAT 93–97
[2021-10-02] MEDS: IPRATROPIUM BR 0.02% INH SOLN 0.5 MG/2.5 ML VIAL INHALATION ×4 (02:15→20:09)
[2021-10-02] MEDS: ALBUTEROL SULFATE NEB 2.5 MG/0.5 ML INH 5 MG INHALATION ×4 (02:15→20:08)
[2021-10-02] MEDS: methylPREDNISolone SOD SUCC 125 MG VIAL 60 MG IV PUSH (05:27)
[2021-10-02 05:56] LABS: Hemoglobin 10.7 g/dL (14.0-18.0); Immature Granulocyte Absolute 0.04 K/mm3 (0.00-0.031); Immature Granulocyte Percent A 0.5 % (0-0.5); Lymphocytes Absolute Auto 0.48 K/mm3 (0.9-3.2); Lymphocytes Percent Auto 5.9 % (18.3-44.2); Mean Corpuscular HGB Conc 31.5 g/dl (32-36); Mean Corpuscular Hemoglobin 29.2 pg (26-34); Mean Corpuscular Volume 92.9 fl (80-100); Mean Platelet Volume 9.2 fl (7.4-10.4); Monocytes Absolute Auto 0.1 K/mm3 (0.1-0.6); Monocytes Percent Auto 0.9 % (2.6-8.5); Neutrophils Absolute Auto 7.5 K/mm3 (1.3-6.7); Neutrophils Percent Auto 92.7 % (45.5-73.1); Platelet Count Result 309 k/mm3 (150-375); Red Blood Count 3.66 M/mm3 (4.6-6.20); Red Cell Distribution Width 17.5 % (11.5-14.5); White Blood Count 8.1 K/mm3 (4.5-10.0)
[2021-10-02 06:07] LABS: Alanine Aminotransferase 20 U/L (4-50); Albumin Level 4.2 g/dL (3.5-5.1); Alkaline Phosphatase 94 U/L (38-126); Anion Gap 8 mmol/L (8-16); Aspartate Amino Transferase 25 U/L (17-59); Bilirubin,Total 0.7 mg/dL (0.2-1.3); Blood Urea Nitrogen 45 mg/dL (9-20); Calcium 9.3 mg/dL (8.4-10.2); Carbon Dioxide 21 mmol/L (22-30); Chloride 108 mmol/L (98-107); Estimated CRCL calculation 28 ml/min; Estimated Glomerular Filt Rate 19; Glucose 149 mg/dL (65-110); Potassium 4.8 mmol/L (3.4-5.0); Sodium 137 mmol/L (137-145)
[2021-10-02 06:21] LABS: Troponin I 0.053 ng/mL (0.000-0.034)
[2021-10-02] MEDS: calcitrioL 0.25 MCG CAPSULE PO (09:40)
[2021-10-02] MEDS: SODIUM BICARBONATE TAB 650 MG TABLET 1300 MG PO ×3 (09:40→17:50)
[2021-10-02] MEDS: OMEGA 3 POLYUNSAT FATTY ACIDS 1 GM CAP 2 GM PO ×2 (09:41→20:36)
[2021-10-02] MEDS: hydrALAZINE HCL 25 MG TABLET PO ×2 (09:41→20:36)
[2021-10-02] MEDS: amLODIPine BESYLATE 5 MG TABLET 10 MG PO (09:41)
[2021-10-02] MEDS: ATORVASTATIN 10 MG TABLET PO (09:41)
[2021-10-02] MEDS: MULTIVITAMINS /C LUTEIN (CENTRUM SILVER) TABLET *BKC 1 TAB PO (09:41)
[2021-10-02] MEDS: ASPIRIN 81 MG CHEWABLE TABLET PO (09:41)
--- NOTE | 2021-10-02 09:42 | PM.IMPN ---
Progress Note: A&P Assessment and Plan (1) COPD exacerbation: Code(s): J44.1 - Chronic obstructive pulmonary disease with (acute) exacerbation Status: Acute Assessment and Plan: Monitor vital signs, I&Os, neuro status and patient is a fall risk Monitor serum electrolytes, cultures and CBC Monitor Oxygen saturation, Oxygen via NC; wean oxygen as tolerated, keep SpO2 greater than 88% Send sputum cultures if possible Azithromycin 500mg Duonebz q6H and Albuterol q2H prn Solu-Medrol 40 mg IV Q 12 hour (2) CKD stage 5 secondary to hypertension: Code(s): I12.0 - Hypertensive chronic kidney disease with stage 5 chronic kidney disease or end stage renal disease; N18.5 - Chronic kidney disease, stage 5 Status: Acute Assessment and Plan: Patient follows with Dr. Jones with nephrology Stable renal function (3) Hyperlipidemia: Code(s): E78.5 - Hyperlipidemia, unspecified Status: Inactive Assessment and Plan: Resume atorvastatin (4) Hypertension: Code(s): I10 - Essential (primary) hypertension Status: Inactive Assessment and Plan: Resume antihypertensive (5) Community acquired bacterial pneumonia: Code(s): J15.9 - Unspecified bacterial pneumonia Status: Acute Assessment and Plan: Monitor vital signs, I&Os, neuro status and patient is a fall risk Follow WBC, serum electrolytes, temperature curves and cultures Sputum culture needs collected Blood cultures pending Oxygen via NC; wean as tolerated. Keep SpO2 greater than 88% Ceftriaxone 1 gram IV q24H and Azithromycin 500mg IV q24H Traci therapy, Added Mucinex DuoNeb q6H and Albuterol q2H PRN P.r.n. Tylenol, Zofran, and melatonin (6) Elevated troponin: Code(s): R77.8 - Other specified abnormalities of plasma proteins Status: Acute Assessment and Plan: Monitor levels, 2/2 CKD stage 5 Subjective Date/time seen: 10/02/21 09:42 Patient is alert and oriented this morning. He reports that his breathing is significantly improved. Resume home medications. Patient was recently decreased on his furosemide at home from 80 mg to 20 mg. He does have 2 +pitting edema to bilateral lower extremities this morning. Administer 40 mg of Lasix this morning. Patient continues with breathing treatments. Pulmonary rehab was consulted yesterday And a 6 minute walk for home O2 eval to be performed. Lung sounds clear with poor inspiratory effort. Review of Systems Review of Systems: All systems reviewed & are unremarkable except as noted in HPI and below Exam Narrative: General: No acute distress. Morbidly obese Mental Status: Awake, alert and oriented to person, place, and time with clear speech. Skin: Skin in warm, dry and intact without rashes or lesions. Head: Normocephalic and atraumatic. Eyes: Conjunctivae are clear without exudates or hemorrhage. Sclera is non-icteric. EOM are intact, PERRLA. Ears: The external ear and canal are non-tender and without swelling or discharge. Nose: Nasal mucosa is pink and moist. Septum midline. Nares patent bilaterally. Throat: Oral mucosa pink and moist with good dentition. Tongue midline. Neck: The neck supple without adenopathy. Trachea midline. No JVD. Cardiac: S1 and S2 regular rate and rhythm. No murmurs, gallops, or rubs auscultated. Respiratory: Chest wall symmetric, nontender and without deformity or trauma. Respirations even and unlabored. Lung sounds are clear with poor inspiratory effort to auscultation in all lobes bilaterally without wheezes, rhonchi, or rales. Abdominal: Abdomen soft, round and non-tender to palpation. Bowel sounds present and normoactive in all 4 quadrants. Spine: Neck and back with grossly normal curvature, no deformity in appearance or signs of trauma. Extremities: Upper and lower extremities atraumatic without tenderness or deformity. Full range of motion and muscle strength 4/5 to all extremities bilaterally. 2+ pit
[2021-10-02] MEDS: FUROSEMIDE 40 MG TABLET PO (09:43)
[2021-10-02] MEDS: methylPREDNISolone SOD SUCC 40 MG VIAL IV PUSH (17:51)
[2021-10-02] MEDS: guaiFENesin 12 HR 600 MG TABCR PO (20:36)
[2021-10-02] MEDS: HEPARIN SODIUM 5,000 UNITS/ML VIAL 5000 UNITS SUB-Q (20:36)
[2021-10-03] VITALS (32 sets, daily range): BP systolic 135–153; BP diastolic 64–88; PULSE 83–115; RESP 16–21; TEMP 35.8–36.6; O2SAT 87–95
[2021-10-03] MEDS: ALBUTEROL SULFATE NEB 2.5 MG/0.5 ML INH 5 MG INHALATION ×4 (02:04→20:05)
[2021-10-03] MEDS: IPRATROPIUM BR 0.02% INH SOLN 0.5 MG/2.5 ML VIAL INHALATION ×4 (02:04→20:05)
[2021-10-03 05:04] LABS: Basophils Percent Auto 0.1 % (0.2-1.2); Hematocrit 33.3 % (42.0-52.0); Hemoglobin 10.7 g/dL (14.0-18.0); Immature Granulocyte Absolute 0.13 K/mm3 (0.00-0.031); Immature Granulocyte Percent A 0.9 % (0-0.5); Lymphocytes Absolute Auto 0.72 K/mm3 (0.9-3.2); Lymphocytes Percent Auto 5.2 % (18.3-44.2); Mean Corpuscular HGB Conc 32.1 g/dl (32-36); Mean Corpuscular Hemoglobin 28.8 pg (26-34); Mean Corpuscular Volume 89.8 fl (80-100); Mean Platelet Volume 8.8 fl (7.4-10.4); Monocytes Absolute Auto 0.6 K/mm3 (0.1-0.6); Monocytes Percent Auto 4.1 % (2.6-8.5); Neutrophils Absolute Auto 12.4 K/mm3 (1.3-6.7); Neutrophils Percent Auto 89.7 % (45.5-73.1); Platelet Count Result 318 k/mm3 (150-375); Red Blood Count 3.71 M/mm3 (4.6-6.20); Red Cell Distribution Width 17.7 % (11.5-14.5); White Blood Count 13.8 K/mm3 (4.5-10.0)
[2021-10-03 05:34] LABS: Alanine Aminotransferase 35 U/L (4-50); Albumin Level 4.2 g/dL (3.5-5.1); Alkaline Phosphatase 78 U/L (38-126); Anion Gap 12 mmol/L (8-16); Aspartate Amino Transferase 46 U/L (17-59); Bilirubin,Total 0.6 mg/dL (0.2-1.3); Blood Urea Nitrogen 69 mg/dL (9-20); Calcium 8.7 mg/dL (8.4-10.2); Carbon Dioxide 20 mmol/L (22-30); Chloride 105 mmol/L (98-107); Estimated CRCL calculation 24 ml/min; Estimated Glomerular Filt Rate 16; Glucose 138 mg/dL (65-110); Magnesium 1.8 mg/dL (1.6-2.3); Potassium 5.5 mmol/L (3.4-5.0); Sodium 137 mmol/L (137-145)
[2021-10-03] MEDS: ATORVASTATIN 10 MG TABLET PO (09:10)
[2021-10-03] MEDS: OMEGA 3 POLYUNSAT FATTY ACIDS 1 GM CAP 2 GM PO ×2 (09:10→20:04)
[2021-10-03] MEDS: amLODIPine BESYLATE 5 MG TABLET 10 MG PO (09:10)
[2021-10-03] MEDS: ASPIRIN 81 MG CHEWABLE TABLET PO (09:10)
[2021-10-03] MEDS: hydrALAZINE HCL 25 MG TABLET PO ×2 (09:10→20:04)
[2021-10-03] MEDS: calcitrioL 0.25 MCG CAPSULE PO (09:10)
[2021-10-03] MEDS: MULTIVITAMINS /C LUTEIN (CENTRUM SILVER) TABLET *BKC 1 TAB PO (09:10)
[2021-10-03] MEDS: methylPREDNISolone SOD SUCC 40 MG VIAL IV PUSH ×2 (09:11→17:14)
[2021-10-03] MEDS: guaiFENesin 12 HR 600 MG TABCR PO ×2 (09:11→20:04)
[2021-10-03] MEDS: HEPARIN SODIUM 5,000 UNITS/ML VIAL 5000 UNITS SUB-Q ×2 (09:11→20:04)
[2021-10-03] MEDS: FUROSEMIDE 20 MG TABLET PO (09:11)
[2021-10-03] MEDS: SODIUM BICARBONATE TAB 650 MG TABLET 1300 MG PO ×3 (09:11→17:14)
--- NOTE | 2021-10-03 09:50 | PM.IMPN ---
Progress Note: A&P Assessment and Plan (1) COPD exacerbation: Code(s): J44.1 - Chronic obstructive pulmonary disease with (acute) exacerbation Status: Acute Assessment and Plan: Monitor vital signs, I&Os, neuro status and patient is a fall risk Monitor serum electrolytes, cultures and CBC Monitor Oxygen saturation, Oxygen via NC; wean oxygen as tolerated, keep SpO2 greater than 88% Send sputum cultures if possible Azithromycin 500mg Duonebz q6H and Albuterol q2H prn Solu-Medrol 40 mg IV Q 12 hour (2) CKD stage 5 secondary to hypertension: Code(s): I12.0 - Hypertensive chronic kidney disease with stage 5 chronic kidney disease or end stage renal disease; N18.5 - Chronic kidney disease, stage 5 Status: Acute Assessment and Plan: Patient follows with Dr. Jones with nephrology Stable renal function Resume home medications (3) Hyperlipidemia: Code(s): E78.5 - Hyperlipidemia, unspecified Status: Inactive Assessment and Plan: Resume atorvastatin (4) Hypertension: Code(s): I10 - Essential (primary) hypertension Status: Inactive Assessment and Plan: Resume antihypertensive (5) Community acquired bacterial pneumonia: Code(s): J15.9 - Unspecified bacterial pneumonia Status: Acute Assessment and Plan: Monitor vital signs, I&Os, neuro status and patient is a fall risk Follow WBC, serum electrolytes, temperature curves and cultures Sputum culture needs collected Blood cultures pending Oxygen via NC; wean as tolerated. Keep SpO2 greater than 88% Ceftriaxone 1 gram IV q24H and Azithromycin 500mg IV q24H Traci therapy Discussed pulmonary rehab Added Mucinex DuoNeb q6H and Albuterol q2H PRN Patient has a history of COVID-19 pneumonia in August 2020. We will obtain a V/Q lung scan to rule out pulmonary embolism. Concern for PE due to the patient's new oxygen requirement Leukocytosis 2/2 steroids P.r.n. Tylenol, Zofran, and melatonin (6) Elevated troponin: Code(s): R77.8 - Other specified abnormalities of plasma proteins Status: Acute Assessment and Plan: Monitor levels, 2/2 CKD stage 5 (7) Hyperkalemia: Code(s): E87.5 - Hyperkalemia Status: Acute Assessment and Plan: Administered 10 g of Lokelma, recheck BMP in the a.m. Low-potassium diet Subjective Date/time seen: 10/03/21 09:50 Patient remains on 2 L of oxygen per nasal cannula. Patient's oxygen saturations did decrease during the night. Patient reports that he had a sleep study approximately 5 years ago and was suggested he wear CPAP. At that time the patient decided not to have a CPAP ordered. A nocturnal sleep study will be performed and the patient was placed on CPAP this evening. Discussed following up with his primary care physician for an outpatient sleep study. Patient's potassium levels was 5.5 this morning, ordered Lokelma, discussed the risks and benefits of this medication with the patient. Patient's WBC was also noted to be elevated. He continues to be on azithromycin and Rocephin as well as steroids. The elevated white count may be due to the steroids. Continue Lasix 20 mg daily. Patient does follow with Nephrology. Currently renal stable. Patient will have a V/Q lung scan performed this afternoon to rule out a pulmonary embolism. Patient has had COVID in the past and has not been anticoagulated. He denies a history of pulmonary embolisms. Unable to perform a CTA due to renal function. Patient was educated on the plan of care this morning. All questions answered. Review of Systems Review of Systems: All systems reviewed & are unremarkable except as noted in HPI and below Exam Narrative: General: No acute distress. Morbidly obese Mental Status: Awake, alert and oriented to person, place, and time with clear speech. Skin: Skin in warm, dry and intact without rashes or lesions. Head: Normocephalic and atraumatic.
--- NOTE | 2021-10-03 11:19 | HOMEO2EVAL ---
Evaluation was performed at [facility] Home Oxygen Evaluation RC: Home Oxygen (O2) Evaluation Start: 10/03/21 09:00 Freq: ONCE Status: Active Protocol: RPE Activity Type Activity Date Activity User E-Sign Co-Sign Detail Recorded Client Recorded Date Recorded By Document 10/03/21 10:45 TUCKER [email or web address] 10/03/21 11:18 TUCKER Document 10/03/21 10:50 TUCKER [email or web address] 10/03/21 11:18 TUCKER Document 10/03/21 10:55 TUCKER [email or web address] 10/03/21 11:18 TUCKER Document 10/03/21 11:00 TUCKER [email or web address] 10/03/21 11:18 TUCKER Document 10/03/21 11:15 TUCKER [email or web address] 10/03/21 11:18 TUCKER 10/03/21 10/03/21 10/03/21 10:45 10:50 10:55 Home O2 Evaluation Test Phase Resting Exercise Exercise Oxygen Delivery Room Air Room Air Nasal Cannula Oxygen Flow Rate (L/min) 1 Pulse Oximetry (90-100 %) 93 87 L 88 L Pulse Rate (60-100 beats/min) 104 H 114 H 112 H Activity Tolerance Treatment Charges O2 Evaluation - Inpatient 10/03/21 10/03/21 11:00 11:15 Home O2 Evaluation Test Phase Exercise Resting Oxygen Delivery Nasal Cannula Room Air Oxygen Flow Rate (L/min) 2 Pulse Oximetry (90-100 %) 91 92 Pulse Rate (60-100 beats/min) 113 H 105 H Activity Tolerance Fair Treatment Charges
--- NOTE | 2021-10-03 11:46 | PCRTNOTE ---
HOME O2 EVAL COMPLETE, 2 LITERS WITH ACTIVITY. SET UP WITH [employer]. PHONE NUMBER [phone]. TANK TO BE DELIVERED TODAY FOR DISCHARGE.
--- NOTE | 2021-10-03 14:24 | PM.CNCAR ---
Assessment and Plan Assessment and plan (1) Elevated troponin: Code(s): R77.8 - Other specified abnormalities of plasma proteins Status: Acute Assessment and Plan: Not related to acute coronary syndrome. (2) CKD stage 5 secondary to hypertension: Code(s): I12.0 - Hypertensive chronic kidney disease with stage 5 chronic kidney disease or end stage renal disease; N18.5 - Chronic kidney disease, stage 5 Status: Acute Assessment and Plan: Worsening (3) Coronary disease: Code(s): I25.10 - Atherosclerotic heart disease of barrow coronary artery without angina pectoris Status: Acute Assessment and Plan: Continue aspirin, statin. (4) Cardiomyopathy: Code(s): I42.9 - Cardiomyopathy, unspecified Status: Acute Assessment and Plan: Dysq-wk-paawblsw LV dysfunction with ejection fraction 40-45%. Obviously will not add any Issa or Arb. Will reduce amlodipine to 5 mg daily and add low-dose carvedilol 3.25 mg p.o. b.i.d. and up titrate as need be. (5) Volume overload: Code(s): E87.70 - Fluid overload, unspecified Status: Acute Assessment and Plan: Patient is volume overload predominantly secondary to underlying renal disease. He may have some mild systolic heart failure also but predominantly I think that his main issue is secondary to worsening renal failure with a creatinine of nearly 4 at this point. Will give a dose of furosemide 40 mg IV x1. Further recommendations will await Nephrology consultation. History of Present Illness History of Present Illness Consult date/time: 10/03/21 14:24 Requesting physician: Loretta Jain, STEAM ROOM ATTENDANT Consult reason: congestive heart failure Reason For Visit: Pneumonia/Hypoxic respiratory failure/COPD Narrative: Date of service 10/03/2021 Reason consultation: CHF, end-stage renal disease Requesting provider: Loretta Jain History: Patient is a 71-year-old male patient of Dr. Porter who has a history of coronary disease and myocardial infarction 2010 status post stenting at that time. He has significant kidney disease and followed by nephrology in [facility]. He had COVID back in August of 2021 and since then has never completely recovered. He had pneumonia shortly thereafter and over the past couple of weeks has had progressively worsening shortness of breath. He was admitted yesterday because of pneumonia. He was producing a whitish sputum. He does have lower extremity swelling which he does not think it is particularly worse than usual. He denies any chest pain, syncope, presyncope, paroxysmal nocturnal dyspnea, orthopnea, palpitations. Chest x-ray was concerning for CHF and BNP was elevated at over 3000 and cardiology consultation was therefore requested. Review of Systems Review of Systems: All systems reviewed & are unremarkable except as noted in HPI and below Constitutional: Constitutional: Denies weakness Eyes: Eyes: Denies blurry vision ENT: Reports Normal hearing present Cardiovascular: Cardiovascular: Denies chest pain, Reports pedal edema and Reports leg edema Respiratory: Respiratory: Reports dyspnea Gastrointestinal: Gastrointestinal: Denies abdominal pain Genitourinary: Genitourinary: Denies dysuria Musculoskeletal: Musculoskeletal: Denies neck pain Integumentary/Breasts: Skin/Breast: Denies dry skin Neurologic: Denies headache(s) Psychiatric: Psychiatric: Denies anxiety and Denies confusion Endocrine: Endocrine: Denies fatigue Hematologic/Lymphatic: Hematologic/Lymphatic: Denies easy bleeding and Denies easy bruising Allergic/Immunologic: Allergic/Immunologic: Denies GI upset with certain foods PMFSH Past Medical History Medical History (Updated 10/03/21 @ 14:30 by Romario Anderson MD) CKD (chronic kidney disease) stage V COPD (chronic obstructive pulmonary disease) Coronary disease Gout History of heart attack 2010 Hyperlipidemia Hypertension
[2021-10-03] MEDS: FUROSEMIDE INJ 40 MG/4 ML VIAL IV PUSH (17:14)
[2021-10-03] MEDS: carvediloL 3.125 MG TABLET PO (20:04)
[2021-10-04] VITALS (25 sets, daily range): BP systolic 142–159; BP diastolic 71–96; PULSE 84–110; RESP 16–20; TEMP 35.8–36.4; O2SAT 92–98
[2021-10-04] MEDS: ALBUTEROL SULFATE NEB 2.5 MG/0.5 ML INH 5 MG INHALATION ×4 (01:55→19:48)
[2021-10-04] MEDS: IPRATROPIUM BR 0.02% INH SOLN 0.5 MG/2.5 ML VIAL INHALATION ×4 (01:55→19:48)
[2021-10-04 07:53] LABS: Basophils Percent Auto 0.1 % (0.2-1.2); Hemoglobin 11.4 g/dL (14.0-18.0); Immature Granulocyte Absolute 0.21 K/mm3 (0.00-0.031); Immature Granulocyte Percent A 1.3 % (0-0.5); Lymphocytes Absolute Auto 1.35 K/mm3 (0.9-3.2); Lymphocytes Percent Auto 8.4 % (18.3-44.2); Mean Corpuscular HGB Conc 31.7 g/dl (32-36); Mean Corpuscular Hemoglobin 28.9 pg (26-34); Mean Corpuscular Volume 91.1 fl (80-100); Monocytes Percent Auto 6.3 % (2.6-8.5); Neutrophils Absolute Auto 13.5 K/mm3 (1.3-6.7); Neutrophils Percent Auto 83.9 % (45.5-73.1); Nucleated Red Blood Cells Perc 0.1 % (0.0-0.2); Platelet Count Result 339 k/mm3 (150-375); Red Blood Count 3.95 M/mm3 (4.6-6.20); Red Cell Distribution Width 17.6 % (11.5-14.5); White Blood Count 16.1 K/mm3 (4.5-10.0)
[2021-10-04] MEDS: MULTIVITAMINS /C LUTEIN (CENTRUM SILVER) TABLET *BKC 1 TAB PO (08:38)
[2021-10-04] MEDS: FUROSEMIDE 20 MG TABLET PO (08:38)
[2021-10-04] MEDS: OMEGA 3 POLYUNSAT FATTY ACIDS 1 GM CAP 2 GM PO ×2 (08:39→20:26)
[2021-10-04] MEDS: amLODIPine BESYLATE 5 MG TABLET PO (08:39)
[2021-10-04] MEDS: ATORVASTATIN 10 MG TABLET PO (08:39)
[2021-10-04] MEDS: hydrALAZINE HCL 25 MG TABLET PO ×2 (08:39→20:27)
[2021-10-04] MEDS: carvediloL 3.125 MG TABLET PO (08:39)
[2021-10-04] MEDS: guaiFENesin 12 HR 600 MG TABCR PO ×2 (08:40→20:27)
[2021-10-04] MEDS: ASPIRIN 81 MG CHEWABLE TABLET PO (08:40)
[2021-10-04] MEDS: SODIUM BICARBONATE TAB 650 MG TABLET 1300 MG PO ×3 (08:40→17:45)
[2021-10-04] MEDS: calcitrioL 0.25 MCG CAPSULE PO (08:40)
[2021-10-04 08:45] LABS: Anion Gap 10 mmol/L (8-16); Blood Urea Nitrogen 81 mg/dL (9-20); Carbon Dioxide 21 mmol/L (22-30); Chloride 103 mmol/L (98-107); Estimated CRCL calculation 21 ml/min; Estimated Glomerular Filt Rate 14; Glucose 117 mg/dL (65-110); Potassium 5.1 mmol/L (3.4-5.0); Sodium 134 mmol/L (137-145)
--- NOTE | 2021-10-04 09:09 | WPDCDIQUERY2 ---
CDI Query Clarification Request 10/03 -Chest X-Ray 10/03/21 06:50 IMPRESSION: Cardiomegaly, congestive changes including subpleural, pulmonary interstitial edema and mild pleural effusions Bilateral basilar infiltrates, right greater than left, which may be due to pneumonia, aspiration Pulmonary interstitial and subpleural edema appear new since 10/01/2021 -Cardiology has documented: -Fluid overload, unspecified Status: Acute Assessment and Plan: Patient is volume overload predominantly secondary to underlying renal disease. He may have some mild systolic heart failure also but predominantly I think that his main issue is secondary to worsening renal failure with a creatinine of nearly 4 at this point. Will give a dose of furosemide 40 mg IV x1. Further recommendations will await Nephrology consultation. For coding purposes, please clarify if systolic heart failure has been ruled in, ruled out or unable to determine.
[2021-10-04] MEDS: HEPARIN SODIUM 5,000 UNITS/ML VIAL 5000 UNITS SUB-Q ×2 (09:24→20:27)
[2021-10-04] MEDS: methylPREDNISolone SOD SUCC 40 MG VIAL IV PUSH ×2 (09:24→17:45)
--- NOTE | 2021-10-04 09:42 | PM.PNCARD ---
Progress Note: A&P Assessment and Plan (1) Elevated troponin: Code(s): R77.8 - Other specified abnormalities of plasma proteins Status: Acute Assessment and Plan: Not related to acute coronary syndrome. (2) CKD stage 5 secondary to hypertension: Code(s): I12.0 - Hypertensive chronic kidney disease with stage 5 chronic kidney disease or end stage renal disease; N18.5 - Chronic kidney disease, stage 5 Status: Acute Assessment and Plan: Worsening (3) Coronary disease: Code(s): I25.10 - Atherosclerotic heart disease of [place] coronary artery without angina pectoris Status: Acute Assessment and Plan: Continue aspirin, statin. (4) Cardiomyopathy: Code(s): I42.9 - Cardiomyopathy, unspecified Status: Acute Assessment and Plan: Pdod-ma-hjqutjqh LV dysfunction with ejection fraction 40-45%. Obviously will not add any Issa or Arb. Will increase carvedilol 6.25 mg p.o. b.i.d. (5) Volume overload: Code(s): E87.70 - Fluid overload, unspecified Status: Acute Assessment and Plan: Patient is volume overload predominantly secondary to underlying renal disease. He may have some mild systolic heart failure also but predominantly I think that his main issue is secondary to worsening renal failure with a creatinine of nearly 4 at this point. Awaiting Nephrology evaluation Subjective Date/time seen: 10/04/21 09:42 Interval history: 71-year-old admitted with shortness of breath and volume overload. Date of service 10/04/2021: No chest pain. Still has swelling. Did urinate nicely overnight but creatinine did rise significantly. Still dyspneic with mild activity Review of Systems Review of Systems: All systems reviewed & are unremarkable except as noted in HPI and below Constitutional: Constitutional: Denies fatigue, Denies headache(s) and Denies weakness Eyes: Eyes: Denies blurry vision ENT: Reports Normal hearing present, Denies headache(s) and Denies neck pain Cardiovascular: Cardiovascular: Denies chest pain, Reports pedal edema, Reports leg edema and Reports dyspnea Respiratory: Respiratory: Reports dyspnea Gastrointestinal: Gastrointestinal: Denies abdominal pain Genitourinary: Genitourinary: Denies dysuria Musculoskeletal: Musculoskeletal: Denies neck pain Integumentary/Breasts: Skin/Breast: Denies dry skin Neurologic: Reports Normal hearing present, Denies confusion, Denies headache(s) and Denies weakness Psychiatric: Psychiatric: Denies anxiety and Denies confusion Endocrine: Endocrine: Denies fatigue Hematologic/Lymphatic: Hematologic/Lymphatic: Denies easy bleeding and Denies easy bruising Allergic/Immunologic: Allergic/Immunologic: Denies GI upset with certain foods Exam Narrative: Alert and oriented appears to be in no acute distress. Appears stated age Const: General: comfortable and no acute distress; No confusion Orientation/consciousness: No confusion HENMT: General nose exam: Normal nares present Eyes: Sclera: sclerae normal Neck: Neck: supple and no JVD Chest: Other: No reproducible chest wall pain to palpation Resp: Auscultation: diminished lung sounds Cardio: Rate: regular rate Rhythm: regular rhythm GI: Inspection: non-distended Auscultation: normal bowel sounds Skin: General skin exam: normal color Neuro: General: No confusion Cranial nerves: Yes Normal hearing present Cognition (Neuro): normal cognition Speech: normal speech Extrem: General: edema (Mild bilateral extremity edema) Psych: Mental Status: mental status grossly normal Objective Data Vital Signs Vital Signs: Vital Signs - 24 hr 10/03/21 10:00 10/03/21 10:45 10/03/21 10:50 Temperature Pulse Rate 107 H 104 H 114 H Respiratory Rate Blood Pressure Pulse Oximetry 93 87 L 10/03/21 10:55 10/03/21 11:00 10/03/21 11:15 Temperature Pulse Rate 112 H 113 H 105 H Respiratory Rate Blood Pressu
--- NOTE | 2021-10-04 09:51 | PM.IMPN ---
Progress Note: A&P Assessment and Plan (1) COPD exacerbation: Code(s): J44.1 - Chronic obstructive pulmonary disease with (acute) exacerbation Status: Acute Assessment and Plan: -Monitor vital signs, I&Os, neuro status and patient is a fall risk -Monitor serum electrolytes, cultures and CBC -Monitor Oxygen saturation, Oxygen via NC; wean oxygen as tolerated, keep SpO2 greater than 88% -currently 94% on RA -Send sputum cultures if possible -Azithromycin 500mg -Duonebz q6H and Albuterol q2H prn -Solu-Medrol 40 mg IV Q 12 hour (2) CKD stage 5 secondary to hypertension: Code(s): I12.0 - Hypertensive chronic kidney disease with stage 5 chronic kidney disease or end stage renal disease; N18.5 - Chronic kidney disease, stage 5 Status: Acute Assessment and Plan: -Patient follows with Dr. Jones with nephrology -Stable renal function -Resume home medications -nephrology consult (3) Hyperlipidemia: Code(s): E78.5 - Hyperlipidemia, unspecified Status: Inactive Assessment and Plan: -Resume atorvastatin (4) Hypertension: Code(s): I10 - Essential (primary) hypertension Status: Inactive Assessment and Plan: -Resume antihypertensive (5) Community acquired bacterial pneumonia: Code(s): J15.9 - Unspecified bacterial pneumonia Status: Acute Assessment and Plan: -Monitor vital signs, I&Os, neuro status and patient is a fall risk -Follow WBC, serum electrolytes, temperature curves and cultures -Sputum culture needs collected -Blood cultures pending -Monitor Oxygen saturation, Oxygen via NC; wean oxygen as tolerated, keep SpO2 greater than 88% -Ceftriaxone 1 gram IV q24H and Azithromycin 500mg IV q24H -[facility] therapy -Discussed pulmonary rehab -Added Mucinex -DuoNeb q6H and Albuterol q2H PRN -Patient has a history of COVID-19 pneumonia in August 2020. -V/Q lung scan indeterminate, unable to do CTA at this time due to renal function, however lower suspicion for PE as patient has now been off of oxygen x24 hours and is improving clinically. Will however check venous dopplers BLE. -Leukocytosis likely 2/2 steroids -currently 94% on RA (6) Elevated troponin: Code(s): R77.8 - Other specified abnormalities of plasma proteins Status: Acute Assessment and Plan: -Monitor levels, likely 2/2 CKD stage 5 -rn referral evaluated, states unrelated to acute coronary syndrome (7) Hyperkalemia: Code(s): E87.5 - Hyperkalemia Status: Acute Assessment and Plan: -Administered 10 g of Lokelma, recheck BMP improved -Low-potassium diet -awaiting nephrology consult (8) Chronic systolic CHF (congestive heart failure): Code(s): I50.22 - Chronic systolic (congestive) heart failure Status: Acute Assessment and Plan: -mild as noted on echo 10/01/21 -cardiology states pt appears fluid overloaded but suspects this is likely due to worsening renal function with a rising creatinine -currently on Lasix 20 PO QD -awaiting nephrology consult Subjective Date/time seen: 10/04/21 09:51 Interval history: 71-year-old male with a past medical history of COPD, CKD stage 5, MO in 2010 with 1 stent placement, and hypertension for COPD exacerbation. Today patient states he is still having some sob with exertion. No cp. Still has some LE edema. Mild dry cough. no N/V/abd pain. Review of Systems Review of Systems: All systems reviewed & are unremarkable except as noted in HPI and below Exam Narrative: General: No acute distress, non toxic appearing, morbidly obese Eyes: PERRL, no scleral icterus HEENT: NCAT, external ears normal, MMM Respiratory: No respiratory distress, diminished lung sounds bilaterally, no wheezing Cardiovascular: RRR, no murmur Abdominal: Soft, nontender, no rebound or guarding, mid abdominal cyst noted Musculoskeletal: Mo
--- NOTE | 2021-10-04 17:59 | PC.NURSE ---
Notified Loren Pelaez of [facility] beat run of [facility] at 1248. Patient asymptomatic, blood pressure remained stable.
--- NOTE | 2021-10-04 19:53 | PCRCNOTE ---
Pt refuses CPAP. States that he plans on getting one for home but that he does not like the one here. States that it makes him feel claustrophobic.
[2021-10-04] MEDS: carvediloL 6.25 MG TABLET PO (20:27)
[2021-10-05] VITALS (28 sets, daily range): BP systolic 139–159; BP diastolic 77–91; PULSE 80–102; RESP 16–18; TEMP 36.4–36.9; O2SAT 77–99
[2021-10-05] MEDS: IPRATROPIUM BR 0.02% INH SOLN 0.5 MG/2.5 ML VIAL INHALATION ×4 (02:30→20:47)
[2021-10-05] MEDS: ALBUTEROL SULFATE NEB 2.5 MG/0.5 ML INH 5 MG INHALATION ×4 (02:30→20:47)
[2021-10-05 04:44] LABS: Basophils Percent Auto 0.2 % (0.2-1.2); Hematocrit 36.3 % (42.0-52.0); Hemoglobin 11.4 g/dL (14.0-18.0); Immature Granulocyte Percent A 1.6 % (0-0.5); Lymphocytes Absolute Auto 0.86 K/mm3 (0.9-3.2); Lymphocytes Percent Auto 6.9 % (18.3-44.2); Mean Corpuscular HGB Conc 31.4 g/dl (32-36); Mean Corpuscular Hemoglobin 29.3 pg (26-34); Mean Corpuscular Volume 93.3 fl (80-100); Mean Platelet Volume 8.7 fl (7.4-10.4); Monocytes Absolute Auto 0.6 K/mm3 (0.1-0.6); Neutrophils Absolute Auto 10.8 K/mm3 (1.3-6.7); Neutrophils Percent Auto 86.3 % (45.5-73.1); Platelet Count Result 304 k/mm3 (150-375); Red Blood Count 3.89 M/mm3 (4.6-6.20); Red Cell Distribution Width 17.6 % (11.5-14.5); White Blood Count 12.6 K/mm3 (4.5-10.0)
[2021-10-05 05:00] LABS: Anion Gap 8 mmol/L (8-16); Blood Urea Nitrogen 86 mg/dL (9-20); Calcium 8.5 mg/dL (8.4-10.2); Carbon Dioxide 25 mmol/L (22-30); Chloride 103 mmol/L (98-107); Estimated CRCL calculation 21 ml/min; Estimated Glomerular Filt Rate 14; Glucose 128 mg/dL (65-110); Sodium 136 mmol/L (137-145)
[2021-10-05] MEDS: ATORVASTATIN 10 MG TABLET PO (08:53)
[2021-10-05] MEDS: calcitrioL 0.25 MCG CAPSULE PO (08:53)
[2021-10-05] MEDS: ASPIRIN 81 MG CHEWABLE TABLET PO (08:53)
[2021-10-05] MEDS: amLODIPine BESYLATE 5 MG TABLET PO (08:53)
[2021-10-05] MEDS: FUROSEMIDE 20 MG TABLET PO (08:54)
[2021-10-05] MEDS: guaiFENesin 12 HR 600 MG TABCR PO ×2 (08:54→19:49)
[2021-10-05] MEDS: carvediloL 6.25 MG TABLET PO ×2 (08:54→19:50)
[2021-10-05] MEDS: MULTIVITAMINS /C LUTEIN (CENTRUM SILVER) TABLET *BKC 1 TAB PO (08:55)
[2021-10-05] MEDS: hydrALAZINE HCL 25 MG TABLET PO ×2 (08:55→19:49)
[2021-10-05] MEDS: OMEGA 3 POLYUNSAT FATTY ACIDS 1 GM CAP 2 GM PO ×2 (08:55→19:49)
[2021-10-05] MEDS: SODIUM BICARBONATE TAB 650 MG TABLET 1300 MG PO ×3 (08:55→17:29)
[2021-10-05] MEDS: methylPREDNISolone SOD SUCC 40 MG VIAL IV PUSH (08:55)
[2021-10-05] MEDS: HEPARIN SODIUM 5,000 UNITS/ML VIAL 5000 UNITS SUB-Q ×2 (08:55→19:50)
--- NOTE | 2021-10-05 09:44 | PM.IMPN ---
Progress Note: A&P Assessment and Plan (1) COPD exacerbation: Code(s): J44.1 - Chronic obstructive pulmonary disease with (acute) exacerbation Status: Acute Assessment and Plan: -Monitor vital signs, I&Os, neuro status and patient is a fall risk -Monitor serum electrolytes, cultures and CBC -Monitor Oxygen saturation, Oxygen via NC; wean oxygen as tolerated, keep SpO2 greater than 88% -currently 94% on RA -Send sputum cultures if possible -Azithromycin 500mg -Duonebz q6H and Albuterol q2H prn -Solu-Medrol 40 mg IV Q 12 hour (2) CKD stage 5 secondary to hypertension: Code(s): I12.0 - Hypertensive chronic kidney disease with stage 5 chronic kidney disease or end stage renal disease; N18.5 - Chronic kidney disease, stage 5 Status: Acute Assessment and Plan: -Patient follows with Dr. Jones with nephrology -Stable renal function -Resume home medications -nephrology consult (3) Hyperlipidemia: Code(s): E78.5 - Hyperlipidemia, unspecified Status: Inactive Assessment and Plan: -Resume atorvastatin (4) Hypertension: Code(s): I10 - Essential (primary) hypertension Status: Inactive Assessment and Plan: -Resume antihypertensive (5) Community acquired bacterial pneumonia: Code(s): J15.9 - Unspecified bacterial pneumonia Status: Acute Assessment and Plan: -Monitor vital signs, I&Os, neuro status and patient is a fall risk -Follow WBC, serum electrolytes, temperature curves and cultures -Sputum culture needs collected -Blood cultures pending -Monitor Oxygen saturation, Oxygen via NC; wean oxygen as tolerated, keep SpO2 greater than 88% -Ceftriaxone 1 gram IV q24H and Azithromycin 500mg IV q24H -[facility] therapy -Discussed pulmonary rehab -Added Mucinex -DuoNeb q6H and Albuterol q2H PRN -Patient has a history of COVID-19 pneumonia in August 2020. -V/Q lung scan indeterminate, unable to do CTA at this time due to renal function, however lower suspicion for PE as patient has now been off of oxygen x24 hours and is improving clinically. Will however check venous dopplers BLE. -Leukocytosis likely 2/2 steroids -currently 94% on RA (6) Elevated troponin: Code(s): R77.8 - Other specified abnormalities of plasma proteins Status: Acute Assessment and Plan: -Monitor levels, likely 2/2 CKD stage 5 -avionics installer evaluated, states unrelated to acute coronary syndrome (7) Hyperkalemia: Code(s): E87.5 - Hyperkalemia Status: Acute Assessment and Plan: -Administered 10 g of Lokelma, recheck BMP improved -Low-potassium diet -awaiting nephrology consult (8) Chronic systolic CHF (congestive heart failure): Code(s): I50.22 - Chronic systolic (congestive) heart failure Status: Acute Assessment and Plan: -mild as noted on echo 10/01/21 -cardiology states pt appears fluid overloaded but suspects this is likely due to worsening renal function with a rising creatinine -currently on Lasix 20 PO QD -awaiting nephrology consult Subjective Date/time seen: 10/05/21 09:44 Patient is alert and oriented x4. Reviewed Cardiology notes. Venous Doppler negative for DVT. Patient is on 2 L of oxygen per nasal cannula satting 99%. Requested RN to decrease oxygen. Patient was started on an increased dose of Lasix yesterday and increased his Coreg to 6.25 b.i.d.. His amlodipine was decreased. Nephrology to follow with the patient. suspect his fluid volume overload is secondary to his underlying renal disease. No acute events overnight reported by the RN. Patient denies any chest pain, additional shortness of breath, nausea, vomiting at the stomach or diarrhea. Review of Systems Review of Systems: All systems reviewed & are unremarkable except as noted in HPI and below Exam Narrative: General: No acute distress. Morbidly obese Mental Status
--- NOTE | 2021-10-05 10:46 | P.CONNP_ITS ---
Assessment and Plan Assessment and plan (1) Chronic kidney disease (CKD), stage V: Code(s): N18.5 - Chronic kidney disease, stage 5 Status: Chronic Assessment and Plan: * baseline creatinine runs ~ 4.0 - 4.6mg/dl since 2020 * likely due to hypertension and decreased nephron mass (one of his kidneys is quite small per patient) * follow with Dr. 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 but no urgent indication for this intervention at this time * suspect his lower creatinine on admission was dilutional from #2 * diuresis has resulted in his creatinine rising to his true baseline * continue current medical and supportive therapy (2) Volume overload: Code(s): E87.70 - Fluid overload, unspecified Status: Acute Assessment and Plan: * presumably more related to CKD than overt CHF * diurese as tolerated * follow I/Os, daily weights, and respiratory status (3) Cardiomyopathy: Code(s): I42.9 - Cardiomyopathy, unspecified Status: Chronic Assessment and Plan: * Echo results noted * Cardiology following (4) Community acquired bacterial pneumonia: Code(s): J15.9 - Unspecified bacterial pneumonia Status: Acute Assessment and Plan: * clinical improvement with current therapy * likely cause of COPD * continue supportive therapy (5) Hyperkalemia: Code(s): E87.5 - Hyperkalemia Status: Acute Assessment and Plan: * resolved with medical management * continue low K+ diet (6) Hypertension: Code(s): I10 - Essential (primary) hypertension Status: Chronic Assessment and Plan: * a bit high but given his advanced CKD, would avoid overcontrol for fear of causing renal hypoperfusion * follow trend of hemodynamics * adjust medications as needed Will continue to follow. History of Present Illness Reason for Consult Consult date: 10/05/21 Reason for consult: chronic renal failure Chief Complaint Chief complaint: Pneumonia/Hypoxic respiratory failure/COPD History of Present Illness Narrative: The patient is a 71-year-old male with extensive past medical history as outlined below who presented to [facility] Emergency room with shortness of breath. The patient states that the shortness of breath has been increasingly getting worse which prompted his visit to the ER. He states that he was diagnosed with COVID-19 pneumonia in August of 2021 and has had problems with shortness of breath and respiratory distress since that time. More recently, he feels his s hortness of breath has deteriorated in the last week and associates HIS with a subjective fever, chills and productive cough. He denies any chest pain, nausea, vomiting, or diarrhea. Apparently, he initially presented to an urgent care center but was referred to the ER after was noted that he was hypoxic with oxygen saturations of 80% on room air. Workup and evaluation emergency room confirmed the hypoxia and he was placed on supplemental oxygen with improvement in his O2 saturations. Further testing demonstrated a CBC with mild anemia and a chemistry that was consistent with his known history of chronic kidney disease. He was also noted to have a mildly elevated troponin and his EKG did not show any acute ischemic changes. His chest x-ray did show some evidence of mild volume overload possibly related to COPD, CHF, or hi
--- NOTE | 2021-10-05 10:46 | PM.CNNEP ---
Assessment and Plan Assessment and plan (1) Chronic kidney disease (CKD), stage V: Code(s): N18.5 - Chronic kidney disease, stage 5 Status: Chronic Assessment and Plan: baseline creatinine runs ~ 4.0 - 4.6mg/dl since 2019 likely due to hypertension and decreased nephron mass (one of his kidneys is quite small per patient) follow with Dr. 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 but no urgent indication for this intervention at this time suspect his lower creatinine on admission was dilutional from #2 diuresis has resulted in his creatinine rising to his true baseline continue current medical and supportive therapy (2) Volume overload: Code(s): E87.70 - Fluid overload, unspecified Status: Acute Assessment and Plan: presumably more related to CKD than overt CHF diurese as tolerated follow I/Os, daily weights, and respiratory status (3) Cardiomyopathy: Code(s): I42.9 - Cardiomyopathy, unspecified Status: Chronic Assessment and Plan: Echo results noted Cardiology following (4) Community acquired bacterial pneumonia: Code(s): J15.9 - Unspecified bacterial pneumonia Status: Acute Assessment and Plan: clinical improvement with current therapy likely cause of COPD continue supportive therapy (5) Hyperkalemia: Code(s): E87.5 - Hyperkalemia Status: Acute Assessment and Plan: resolved with medical management continue low K+ diet (6) Hypertension: Code(s): I10 - Essential (primary) hypertension Status: Chronic Assessment and Plan: a bit high but given his advanced CKD, would avoid overcontrol for fear of causing renal hypoperfusion follow trend of hemodynamics adjust medications as needed Will continue to follow. History of Present Illness Reason for Consult Consult date: 10/05/21 Reason for consult: chronic renal failure Chief Complaint Chief complaint: Pneumonia/Hypoxic respiratory failure/COPD History of Present Illness Narrative: The patient is a 71-year-old male with extensive past medical history as outlined below who presented to [facility] Emergency room with shortness of breath. The patient states that the shortness of breath has been increasingly getting worse which prompted his visit to the ER. He states that he was diagnosed with COVID-19 pneumonia in August of 2021 and has had problems with shortness of breath and respiratory distress since that time. More recently, he feels his shortness of breath has deteriorated in the last week and associates HIS with a subjective fever, chills and productive cough. He denies any chest pain, nausea, vomiting, or diarrhea. Apparently, he initially presented to an urgent care center but was referred to the ER after was noted that he was hypoxic with oxygen saturations of 80% on room air. Workup and evaluation emergency room confirmed the hypoxia and he was placed on supplemental oxygen with improvement in his O2 saturations. Further testing demonstrated a CBC with mild anemia and a chemistry that was consistent with his known history of chronic kidney disease. He was also noted to have a mildly elevated troponin and his EKG did not show any acute ischemic changes. His chest x-ray did show some evidence of mild volume overload possibly related to COPD, CHF, or his recent COVID-19 infection. Given his constellation of symptoms and his significant past medical history, he was admitted the hospital for further evaluation and therapy. Since admission, he has been treated for a combination of a COPD exacerbation, pneumonia, and CHF. Cardiology was also consulted given his mildly elevated troponins as well as CHF and he was continued on diuretic therapy in e
--- NOTE | 2021-10-05 11:31 | PM.PNCARD ---
Progress Note: A&P Assessment and Plan (1) Volume overload: Code(s): E87.70 - Fluid overload, unspecified Status: Acute Assessment and Plan: Although difficult to accurately ascertain, patient appears to likely be close to euvolemic with chronic lower extremity edema in part possibly related to LV dysfunction most likely related to chronic kidney disease. If Nephrology is okay consider increase Lasix to 40 mg daily as I doubt 20 mg daily is doing much given his degree of renal failure. Disposition per hospitalist service. Follow-up as an outpatient with Dr. Porter in 4 weeks. Will see patient as needed. Please do not hesitate to contact us with any additional questions or concerns. (2) Cardiomyopathy: Code(s): I42.9 - Cardiomyopathy, unspecified Status: Chronic Assessment and Plan: Yuvs-op-nzspnuru LV dysfunction with ejection fraction 40-45%. Unable to optimize guideline directed medical therapy due to renal failure with HOLLIS-I/ARB. Continue carvedilol 6.25 mg twice daily. (3) Elevated troponin: Code(s): R77.8 - Other specified abnormalities of plasma proteins Status: Acute Assessment and Plan: Not related to acute coronary syndrome. Type 2 infarction secondary to hypoxic, chronic kidney failure, mild CHF. No further workup indicated. (4) CKD stage 5 secondary to hypertension: Code(s): I12.0 - Hypertensive chronic kidney disease with stage 5 chronic kidney disease or end stage renal disease; N18.5 - Chronic kidney disease, stage 5 Status: Acute Assessment and Plan: Overall relatively stable. Appreciate Nephrology involvement and recommendations. (5) Coronary disease: Code(s): I25.10 - Atherosclerotic heart disease of [place] coronary artery without angina pectoris Status: Acute Assessment and Plan: Continue aspirin, statin. Asymptomatic, no acute issues. (6) COPD exacerbation: Code(s): J44.1 - Chronic obstructive pulmonary disease with (acute) exacerbation Status: Acute Assessment and Plan: Per primary service. Likely also exacerbated due to recent COVID pneumonia. He remains on IV antibiotics and bronchodilator therapy. Subjective Date/time seen: Date of service: 10/05/21 11:31 Interval history: 71-year-old admitted with shortness of breath and volume overload, mild to moderate LV systolic dysfunction with acute on chronic kidney failure 10/04/2021: No chest pain. Still has swelling. Did urinate nicely overnight but creatinine did rise significantly. Still dyspneic with mild activity 10/05/2021 patient states he feels much better today. Breathing has improved significantly. Able to move around much better without significant shortness of breath. He is on room air no chest pain, dizziness. Edema is present but this is also improved he states. Review of Systems Review of Systems: All systems reviewed & are unremarkable except as noted in HPI and below Constitutional: Constitutional: Reports as per HPI, Denies fatigue, Denies headache(s) and Denies weakness Eyes: Eyes: Denies blurry vision ENT: Reports Normal hearing present, Denies headache(s) and Denies neck pain Cardiovascular: Cardiovascular: Reports as per HPI, Denies chest pain, Reports pedal edema, Reports leg edema and Reports dyspnea Respiratory: Respiratory: Reports as per HPI and Denies dyspnea Gastrointestinal: Gastrointestinal: Reports as per HPI and Denies abdominal pain Genitourinary: Genitourinary: Denies dysuria Musculoskeletal: Musculoskeletal: Reports as per HPI and Denies neck pain Integumentary/Breasts: Skin/Breast: Denies dry skin Neurologic: Reports as per HPI, Reports Normal hearing present, Denies confusion, Denies headache(s) and Denies weakness Psychiatric: Psychiatric: Denies anxiety and Denies confusion Endocrine: Endocrine: Denies fatigue Hematologic/Lymphatic: Hematologic/Lymphatic: Denies easy bleeding
--- NOTE | 2021-10-05 15:04 | PC.NURSE ---
Addendum entered by Juan Francisco Galvez RN 10/05/21 18:13: Update: Ice/cold compresses applied intermittantly, site soft, patient states it feels much better, no pain at present. Original Note: Right wrist IV infiltrated while infusing antibiotic; infusion turned off, IV removed from wrist, cold compresses applied to site; will continue to monitor
--- NOTE | 2021-10-05 22:50 | PCRCNOTE ---
Patient refuses CPAP at [facility]. States he doesn't like our equipment / masks and is going to wait until he gets one at home.
[2021-10-06] VITALS (8 sets, daily range): BP systolic 153–169; BP diastolic 83–91; PULSE 82–100; RESP 16–18; TEMP 36.2–36.6; O2SAT 92–94
[2021-10-06] MEDS: IPRATROPIUM BR 0.02% INH SOLN 0.5 MG/2.5 ML VIAL INHALATION (02:33)
[2021-10-06] MEDS: ALBUTEROL SULFATE NEB 2.5 MG/0.5 ML INH 5 MG INHALATION (02:33)
[2021-10-06] MEDS: MULTIVITAMINS /C LUTEIN (CENTRUM SILVER) TABLET *BKC 1 TAB PO (08:10)
[2021-10-06] MEDS: hydrALAZINE HCL 25 MG TABLET PO (08:10)
[2021-10-06] MEDS: carvediloL 6.25 MG TABLET PO (08:10)
[2021-10-06] MEDS: amLODIPine BESYLATE 5 MG TABLET PO (08:11)
[2021-10-06] MEDS: calcitrioL 0.25 MCG CAPSULE PO (08:11)
[2021-10-06] MEDS: FUROSEMIDE 40 MG TABLET PO (08:11)
[2021-10-06] MEDS: OMEGA 3 POLYUNSAT FATTY ACIDS 1 GM CAP 2 GM PO (08:11)
[2021-10-06] MEDS: guaiFENesin 12 HR 600 MG TABCR PO (08:11)
[2021-10-06] MEDS: ASPIRIN 81 MG CHEWABLE TABLET PO (08:11)
[2021-10-06] MEDS: SODIUM BICARBONATE TAB 650 MG TABLET 1300 MG PO (08:12)
[2021-10-06] MEDS: ATORVASTATIN 10 MG TABLET PO (08:12)
[2021-10-06] MEDS: HEPARIN SODIUM 5,000 UNITS/ML VIAL 5000 UNITS SUB-Q (08:18)
--- NOTE | 2021-10-06 09:31 | PCRCNOTE ---
0800 tx not given due to pt leaving when RT arrived to Room
--- NOTE | 2021-10-06 09:43 | PC.NURSE ---
Patient discharged to home, ESQUIVEL, no pain, or distress noted of any kind. Left upper 22g IV removed, no bleeding/hematoma, gauze applied to protect skin; patient discharged w/O2 canister, him and verbalized instructions on how to contact company for setup when home, patient understand to rest until O2 hooked up. Patient wheelchaired down to waiting private vehicle for transport home.
--- NOTE | 2021-10-06 10:43 | PM.DS ---
DS: Admitting Diagnosis Discharge Date 10/06/21 Admitting Diagnosis CKD stage 5 CHF COPD exacerbation CMP Hypertension DS: Discharge Diagnosis Discharge Diagnosis (1) COPD exacerbation: Code(s): J44.1 - Chronic obstructive pulmonary disease with (acute) exacerbation Status: Acute Assessment and Plan: -Monitor vital signs, I&Os, neuro status and patient is a fall risk -Monitor serum electrolytes, cultures and CBC -Monitor Oxygen saturation, Oxygen via NC; wean oxygen as tolerated, keep SpO2 greater than 88% -currently 94% on RA -Send sputum cultures if possible -Azithromycin 500mg -Duonebz q6H and Albuterol q2H prn -Solu-Medrol 40 mg IV Q 12 hour (2) CKD stage 5 secondary to hypertension: Code(s): I12.0 - Hypertensive chronic kidney disease with stage 5 chronic kidney disease or end stage renal disease; N18.5 - Chronic kidney disease, stage 5 Status: Acute Assessment and Plan: -Patient follows with Dr. Jones with nephrology -Stable renal function -Resume home medications -nephrology consult (3) Hyperlipidemia: Code(s): E78.5 - Hyperlipidemia, unspecified Status: Inactive Assessment and Plan: -Resume atorvastatin (4) Hypertension: Code(s): I10 - Essential (primary) hypertension Status: Inactive Assessment and Plan: -Resume antihypertensive (5) Community acquired bacterial pneumonia: Code(s): J15.9 - Unspecified bacterial pneumonia Status: Acute Assessment and Plan: -Monitor vital signs, I&Os, neuro status and patient is a fall risk -Follow WBC, serum electrolytes, temperature curves and cultures -Sputum culture needs collected -Blood cultures pending -Monitor Oxygen saturation, Oxygen via NC; wean oxygen as tolerated, keep SpO2 greater than 88% -Ceftriaxone 1 gram IV q24H and Azithromycin 500mg IV q24H -[facility] therapy -Discussed pulmonary rehab -Added Mucinex -DuoNeb q6H and Albuterol q2H PRN -Patient has a history of COVID-19 pneumonia in August 2020. -V/Q lung scan indeterminate, unable to do CTA at this time due to renal function, however lower suspicion for PE as patient has now been off of oxygen x24 hours and is improving clinically. Will however check venous dopplers BLE. -Leukocytosis likely 2/2 steroids -currently 94% on RA (6) Elevated troponin: Code(s): R77.8 - Other specified abnormalities of plasma proteins Status: Acute Assessment and Plan: -Monitor levels, likely 2/2 CKD stage 5 -tar chaser evaluated, states unrelated to acute coronary syndrome (7) Hyperkalemia: Code(s): E87.5 - Hyperkalemia Status: Acute Assessment and Plan: -Administered 10 g of Lokelma, recheck BMP improved -Low-potassium diet -awaiting nephrology consult (8) Chronic systolic CHF (congestive heart failure): Code(s): I50.22 - Chronic systolic (congestive) heart failure Status: Acute Assessment and Plan: -mild as noted on echo 10/01/21 -cardiology states pt appears fluid overloaded but suspects this is likely due to worsening renal function with a rising creatinine -currently on Lasix 40 PO QD -segment assembler suggested increasing Lasix to 40 mg p.o. and follow up with his nephrology as an outpatient DS: Summary Hospital Course Reason for hospitalization: CKD stage 5 CHF exacerbation COPD Hypertension Hyperkalemia CAP Hospital Course: Patient is a 71-year-old male with a past medical history of COPD, CKD stage 5, PR in 2009 with 1 stent placement, and hypertension. Patient presented to [facility] Emergency Department due to increasing shortness of breath. Patient reports that he was diagnosed with COVID-19 pneumonia in August and has had subsequent respiratory distress since that admission. S patient has been feeling increasingly worse over the past week and reports subjective fever, chills,
== END 2021-10-06 09:51 | disposition home or self-care (01) | DRG 194 ==
LOC: ANHED 12:55 → ANHIMU 15:20
PROVIDERS: Physician Assistant; Admitting Provider Family Medicine; Emergency Provider Emergency Medicine; PCP Physician Assistant; Visit Provider Nurse Practitioner Family
DX: J15.9 Unspecified bacterial pneumonia (principal); J44.1 Chronic obstructive pulmonary disease with (acute) exacerbation; J44.0 Chronic obstructive pulmonary disease with (acute) lower respiratory infection; N18.5 Chronic kidney disease, stage 5; I42.9 Cardiomyopathy, unspecified; I13.2 Hypertensive heart and chronic kidney disease with heart failure and with stage 5 chronic kidney disease, or end stage renal disease; I50.22 Chronic systolic (congestive) heart failure; E87.79 Other fluid overload; E87.5 Hyperkalemia; E78.5 Hyperlipidemia, unspecified; E66.01 Morbid (severe) obesity due to excess calories; F17.210 Nicotine dependence, cigarettes, uncomplicated; I45.10 Unspecified right bundle-branch block; I25.2 Old myocardial infarction; I25.10 Atherosclerotic heart disease of native coronary artery without angina pectoris; M10.9 Gout, unspecified; R60.0 Localized edema; R77.8 Other specified abnormalities of plasma proteins; Z79.82 Long term (current) use of aspirin; Z68.36 Body mass index [BMI] 36.0-36.9, adult; Z85.46 Personal history of malignant neoplasm of prostate; Z90.79 Acquired absence of other genital organ(s); Z95.5 Presence of coronary angioplasty implant and graft; Z86.16 Personal history of COVID-19
CPT/HCPCS: 36415; 71045; 71046; 78580; 80048; 80053; 81001; 83605; 83735; 83880; 84484; 85025; 85610; 85730; 86140; 87040; 87070; 87205; 93005; 93306; 93970; 94618; 94640; 94660; 94667; 94668; 96365; 96366; 96367; 96375; 96376; 97110; 97116; 97161; 97165; 97530; 97535; 99285; A9270; A9540; G0378; J0456; J0696; J1644; J1940; J2920; J2930; J7030

== ENCOUNTER → 2021-12-21 09:26 | Outpatient (CLI) | payer MEDICARE, SELFPAY ==
--- NOTE | ~2021-12-21 | XR_ITS ---
EXAMINATION: XR chest 2V DATE: 12/21/2021 11:14 INDICATION: Pneumonia TECHNIQUE: PA and lateral views of the chest were obtained. COMPARISON: Chest radiograph dated 10/03/2021 and 08/29/2021 FINDINGS: Persistent opacities in the right lower lung zone which appears to correspond to combination of lung disease and small right pleural effusion. No pulmonary edema, pneumothorax or left-sided pleural effu eduarda. Mild cardiomegaly. Mild thoracic spondylosis with chronic minimal anterior wedging of a few low er thoracic vertebral bodies. IMPRESSION: 1. Persistent opacities in the right lower lung zone consistent with small right pleural effusion and associated atelectasis and/or pneumonia. Given that the opacity has failed to clear over 4 months wo uld recommend further evaluation with contrast-enhanced chest CT as differential would include malign prema. Reviewed, dictated and finalized at location A. IMPRESSION: 1. Persistent opacities in the right lower lung zone consistent with small righ t pleural effusion and associated atelectasis and/or pneumonia. Given that the opacity has failed to clear over 4 months would recommend further evaluation wi th contrast-enhanced chest CT as differential would include malignancy.
== END ==
PROVIDERS: PCP Physician Assistant; Visit Provider Physician Assistant
DX: J18.9 Pneumonia, unspecified organism (principal); J90 Pleural effusion, not elsewhere classified; I51.7 Cardiomegaly; M47.814 Spondylosis without myelopathy or radiculopathy, thoracic region
CPT/HCPCS: 71046

== ENCOUNTER → 2022-01-02 13:27 | Outpatient (CLI) | payer MEDICARE, SELFPAY ==
--- NOTE | ~2022-01-02 | CT_ITS ---
EXAMINATION: CT diagnostic chest wo con DATE: 01/02/2022 13:51 INDICATION: Persistent right basilar opacities on chest radiograph TECHNIQUE: Computed tomography (CT) of the chest was performed without intravenous contrast. The dose -length product (DLP) was 772.50 mGy-cm. Automated exposure control and iterative reconstruction tech nique were employed. COMPARISON: None FINDINGS: There is a small to moderate size right pleural effusion. There is a small left pleural eff usion. There is atelectasis of the right middle lobe. There is more confluent opacity in the lateral aspect of the right middle lobe. There is mild thickening of the adjacent pleura. There is a 7 mm nod ule of the right lower lobe. The heart size is normal. Calcified coronary artery atherosclerosis is n oted. There are no pathologically enlarged thoracic lymph nodes. There is moderate atrophy of the kid neys. There is mild thoracic spondylosis. There is fusion of the lower cervical vertebral bodies. IMPRESSION: 1. Small to moderate-sized right and small left pleural effusions. 2. Right middle lobe atelectasis with more confluent opacity in the lateral aspect of the middle lobe . Adjacent pleural disease is suggestive of rounded atelectasis however underlying malignancy is a co nsideration. Recommend further evaluation with PET/CT or follow-up CT in three months. Reviewed, dictated and finalized at location F. IMPRESSION: 1. Small to moderate-sized right and small left pleural effusions. 2. Right middle lobe atelectasis with more confluent opacity in the lateral asp ect of the middle lobe. Adjacent pleural disease is suggestive of rounded atele ctasis however underlying malignancy is a consideration. Recommend further eval uation with PET/CT or follow-up CT in three months.
== END ==
PROVIDERS: PCP Physician Assistant; Visit Provider Physician Assistant
DX: R93.89 Abnormal findings on diagnostic imaging of other specified body structures (principal); J90 Pleural effusion, not elsewhere classified; J98.11 Atelectasis
CPT/HCPCS: 71250

== ENCOUNTER 2022-01-16 13:44 | Outpatient (CLI) | payer MEDICARE, SELFPAY ==
--- NOTE | ~2022-01-16 | PE_ITS ---
EXAMINATION: PET skull to mid thigh DATE: 01/16/2022 15:43 INDICATION: Right lung mass. TECHNIQUE: Blood glucose level was 104 mg/dL. 9.771 mCi of 18-fluorodeoxyglucose (18-FDG) was adminis tered i.v. Low dose computed tomography (CT) images were acquired from the base of the brain to the p roximal thighs for attenuation correction and anatomic localization. Automated exposure control was e mployed. Dose-length product (DLP) was 1245 mGy-cm. Positron emission tomography (PET) images were ac quired in the same distribution. COMPARISON: Chest CT 01/02/2022 FINDINGS: Head/neck: There is increased activity in the oral cavity, pharynx, paraspinal muscles, major salivar y glands, and glottis without abnormal CT correlate, likely physiologic. There are no pathologically enlarged lymph nodes. Chest: There is a moderate-sized right pleural effusion. There are airspace opacities in right lung m iddle lobe with volume loss without increased activity, consistent with atelectasis. Tracheomalacia i s noted. The heart size is normal. There are coronary artery calcifications. No pericardial effusion. Abdomen/pelvis/proximal thighs: The liver and spleen are normal. There is a 7.9 x 4.6 cm subcutaneous mass in anterior abdominal wall without increased activity. There are gallstones in the gallbladder, which is normal in size. The pancreas and adrenal glands are normal. There is moderate atrophy of th e kidneys. There is a 1.3 cm cyst in right kidney. There are changes of prostatectomy and pelvic lymp h node dissection. There are no dilated loops of bowel. There are no pathologically enlarged lymph no miesha. There is no free intraperitoneal fluid. There are chronic bilateral L5 pars defects with grade 2 anterolisthesis of L5 on S1. There is severe lumbar spondylosis. IMPRESSION: 1. Airspace opacities in right lung middle lobe with volume loss without increased activity, consiste nt with atelectasis. 2. Moderate-sized right pleural effusion. 3. 7.9 cm subcutaneous mass without increased activity in anterior abdominal wall, most likely a seba ceous cyst. Consider biopsy (or drainage if cystic). Reviewed, dictated and finalized at location B. IMPRESSION: 1. Airspace opacities in right lung middle lobe with volume loss without increa sed activity, consistent with atelectasis. 2. Moderate-sized right pleural effusion. 3. 7.9 cm subcutaneous mass without increased activity in anterior abdominal wa ll, most likely a sebaceous cyst. Consider biopsy (or drainage if cystic).
[2022-01-16 14:13] LABS: Glucose Point of Care 104 mg/dl (65-105)
== END 2022-01-16 13:45 | disposition home or self-care (01) ==
PROVIDERS: PCP Physician Assistant; Visit Provider Physician Assistant
DX: R91.8 Other nonspecific abnormal finding of lung field (principal); J90 Pleural effusion, not elsewhere classified; R19.00 Intra-abdominal and pelvic swelling, mass and lump, unspecified site
CPT/HCPCS: 78815; A9552

== ENCOUNTER 2022-09-25 12:22 | Outpatient (CLI) | payer MEDICARE, SELFPAY ==
--- NOTE | ~2022-09-25 | CT_ITS ---
CT Scan of the Chest without Contrast: Clinical Indication: Respiratory crackles Technique: Contiguous sections were acquired throughout the chest without intravenous contrast. Dose reduction technique was used on this scan by utilizing automated exposure control and iterative recon struction technique. The dose-length product (DLP) was 939.27 mGy-cm. COMPARISON: 01/02/2022 Findings: There is no evidence of any significant mediastinal, hilar or axillary lymphadenopathy. Coronary antoni ry calcifications are present. No aortic aneurysm. There is no evidence of pleural or pericardial effusion. There are probable minimal tree-in-bud opacities in the right lower lobe. Left lung clear. Images through the upper abdomen reveal gallbladder sludge and/or small stones. Kidneys are atrophic. There is a partially imaged round, circumscribed soft tissue mass in the anterior subcutaneous soft tissues at the upper abdomen, probably increase in size from prior exam measuring up to approximately 8.2 cm in diameter. Impression: Probable minimal tree-in-bud opacities in the right lower lobe, suggestive of small airways infectiou s process. Enlarging probable circumscribed soft tissue mass in the anterior subcutaneous soft tissues, partiall y imaged, measuring at least 8.2 cm in diameter.. Consider dedicated workup as indicated. Cholelithiasis/gallbladder sludge. Reviewed, dictated and finalized at location M. SUPPORT ANALYST SUPERVISOR Impression: Probable minimal tree-in-bud opacities in the right lower lobe, suggestive of s mall airways infectious process. Enlarging probable circumscribed soft tissue mass in the anterior subcutaneous soft tissues, partially imaged, measuring at least 8.2 cm in diameter.. Conside r dedicated workup as indicated. Cholelithiasis/gallbladder sludge.
--- NOTE | 2022-09-26 11:20 | WPDPFTINT ---
PFT Procedure Performed PFT Procedure Performed Spirometry with Pre/Post Bronchodilator Plethysmography (Lung Vol) Diffusing Cap (DLCO) Flow Vol Loop PFT Interpretation DOS: 09/25/2022 REQUESTING: [facility] REAS[facility] FOR TESTING: COPD PULMONARY FUNCTION TESTS The repeatability and reliability is Grade B. Spirometry: Pre bronchodilator FEV1 is 2.65 L, 79%, in the normal range. Pre bronchodilator FVC is 5.42 L, 121%, normal. FEV1/FVC ratio is 49% reduced, consistent with airflow obstruction. After bronchodilator, FEV1 decreases by 4%, FVC increases by 1%. These are non statistically significant changes. Lung volumes: Total lung capacity is 8.51 L, 114%, normal. Residual volume is 3.09 L, 119%, normal. RV/TLC is 36%, normal. Raw is 218 cmH20/L/sec, 218%, elevated. Diffusion: DLCO 15.7, 59%, moderately decreased. DLCO/VA is 2.22, 59%, moderately decreased. Flow volume loop: There is coving of the expiratory limb consistent with airflow obstruction. IMPRESSION: This study shows a mild obstructive ventilatory impairment without response to bronchodilator, normal lung volumes and moderate diffusion impairment. Lack of response to bronchodilator does not preclude use if clinically indicated. Compared to prior study 03/01/2018 the patient shows improvement. The prior FEV1 was 1.74 L, 52% predicted, moderately decreased now FEV1 is 2.65 L, 79% predicted, normal. The FVC was 3.83 L, 76% predicted, now FVC is 5.42 L, 121%, improved. Airflow obstruction was also present, FEV1/FVC ratio was 45%. Total lung capacity was 7.89 L, 105%, similar to current TLC, residual volume was worse, 4.04, 145% consistent with worsening air trapping. DLCO was 18.5, 64%, similar to the current DLCO 59%. The DLCO/VA was normal on the last test, 3.43, 94%. The patient now does not have improvement when diffusion is corrected alveolar volume. Sharmaine Alaniz MD
--- NOTE | 2022-09-26 11:40 | P.PCNSIX_ITS ---
Six Minute Walk Procedure Procedure Performed Pulmonary Stress Test (6 min walk) Six Minute Walk Six Minute Walk: Date of service: 09/25/2022 Requesting: Margaux Lizarraga CUT OFF SAW TENDER METAL- Reason for testing: COPD SIX MINUTE WALK This test was performed according to ATS standards. The patient was on room air during the walk. He did not use any assistive device. The initial saturation was 94% and the heart rate was 87. At baseline, he had a Mary dyspnea score of 3. The patient walked for 5 minutes, stopped for 20 seconds for shortness of breath and continued the walk. His saturation decreased to 90% and the heart rate increased to 120 beats per minute. The distance walked was 304.8 m/1000 ft. The Mary dyspnea score at the end of recovery was 4. The final saturation after recovery was 89%. The patient had a wrist oximeter to her which was not picking up so the values were recorded manually. IMPRESSION: This study shows desaturation without prabhu hypoxemia. The patient does not qualify for supplemental oxygen with exertion. The distance walked is adequate for age. The patient had tachycardia at the end of the test, 120. This may be due to deconditioning or cardiac issues. Clinical correlation is advised. Sharmaine Alaniz MD
== END 2022-09-25 12:23 | disposition home or self-care (01) ==
LOC: ANHPFT 12:23
PROVIDERS: PCP Physician Assistant; Visit Provider Nurse Practitioner
DX: J44.9 Chronic obstructive pulmonary disease, unspecified (principal); R09.89 Other specified symptoms and signs involving the circulatory and respiratory systems; R94.2 Abnormal results of pulmonary function studies; R91.8 Other nonspecific abnormal finding of lung field; K83.9 Disease of biliary tract, unspecified
CPT/HCPCS: 71250; 94060; 94618; 94726; 94729

== ENCOUNTER 2024-01-08 14:03 | Outpatient (CLI) | payer MEDICARE, SELFPAY ==
--- NOTE | ~2024-01-08 | US_ITS ---
EXAMINATION: US carotid duplex BI DATE: 01/08/2024 14:56 INDICATION: Carotid bruit. TECHNIQUE: Grayscale, color Doppler, and pulsed Doppler images of the cervical carotid arteries were obtained. The degree of vessel stenosis is placed in one of the following categories: normal, <50%, 5 0-69%, >=70% but less than near-occlusion, near-occlusion, or total occlusion. Note that percent sten osis relative to normal distal artery lumen diameter is indirectly measured from velocity measurement s as described by Anuel, et al. Radiology 2003; 229:340-346. COMPARISON: None. FINDINGS: RIGHT: The right common carotid artery (CCA) peak systolic velocity (PSV) is 102 cm/s. The right internal ca rotid artery (ICA) PSV is 96 cm/s. The right ICA end-diastolic velocity (EDV) is 17 cm/s. The right I CA/CCA PSV ratio is 0.9. Grayscale and color Doppler images yield an estimate of <50% diameter reduct ion from plaque in the ICA. There is antegrade flow in the right vertebral artery. LEFT: The left CCA PSV is 91 cm/s. The left ICA PSV is 158 cm/s. The left ICA EDV is 37 cm/s. The left ICA/ CCA PSV ratio is 1.7. Grayscale and color Doppler images yield an estimate of >=50% diameter reductio n from plaque in the ICA. There is antegrade flow in the left vertebral artery. IMPRESSION: 1. <50% stenosis in the right internal carotid artery. 2. 50-69% stenosis in the left internal carotid artery. Reviewed, dictated and finalized at location E.
== END 2024-01-08 14:04 | disposition home or self-care (01) ==
LOC: ANHIMG 14:05
PROVIDERS: PCP Physician Assistant; Visit Provider Physician Assistant
DX: I65.23 Occlusion and stenosis of bilateral carotid arteries (principal); R09.89 Other specified symptoms and signs involving the circulatory and respiratory systems
CPT/HCPCS: 93880

== ENCOUNTER 2024-01-16 08:39 | Emergency (ER) | payer MEDICARE, SELFPAY ==
--- NOTE | ~2024-01-16 | CT_ITS ---
EXAMINATION: CT abdomen pelvis wo con DATE: 01/16/2024 09:52 INDICATION: Right flank pain. Diarrhea. History of chronic kidney disease, prostate cancer, status po st prostatectomy. TECHNIQUE: Computed tomography (CT) of the abdomen and pelvis was performed without intravenous contr ast. Automated exposure control and iterative reconstruction technique were employed. Exam dose: 126 6.10 mGy-cm total exam DLP. COMPARISON: 01/16/2022 PET/CT scan FINDINGS: Patchy tree-in-bud infiltrate is noted in the peripheral lateral and posterolateral right l ower lobe, which may be due to infection or aspiration pneumonitis. Mild discoid atelectasis or more likely scarring at the middle lobe. Cardiomegaly. No pericardial or pleural effusion. Small sliding hiatal hernia. Approximately 8 x 5 cm subcutaneous soft tissue mass is again noted in the upper anterior abdominal w all near midline, minimally changed compared to 7.9 x 4.6 cm measurement on 01/16/2022 PET/CT scan. Th ere are numerous small stones in the dependent aspect of the gallbladder. No gallbladder wall thicken ing. No bile duct or pancreatic duct dilatation. There are multiple scattered pancreatic calcificatio ns consistent with chronic pancreatitis. No hepatic, pancreatic, splenic, adrenal space-occupying mass lesion. Severe bilateral renal atrophy. Nonspecific thickening of the wall of the left renal pelvis; diffusion diagnosis includes infection, urothelial malignancy Approximately 1.8 cm exophytic hypoattenuating lesion with fluid density at the mid lateral right kid tanya, likely a cyst. There are prominent bilateral renal artery calcifications. Nonobstructing multipl e left renal calculi. No left or right ureteral calculi or hydronephrosis. There is extensive calcification but normal caliber of the abdominal aorta. There is ectasia of the l eft common iliac artery extensive bilateral iliac and femoral artery calcifications. No intraperitoneal or retroperitoneal or pelvic mass lesion or adenopathy or ascites is noted. Small bilateral fat-containing inguinal hernias. Status post prostatectomy and bilateral pelvic lymph node dissection. No abnormal prostate bed mass l esion or pelvic adenopathy is noted. Diverticulosis of the colon; no CT evidence of diverticulitis. Normal appendix. No bowel obstruction or intraperitoneal free air. Very small fat-containing umbilical hernia. Bilateral L5 pars and articular defects with grade 2 anterolisthesis and severe degenerative disease at L5-S1. There is moderately severe degenerative disease at L2-3, L3-4, L4-5, with associated mild retrolisthe sis. IMPRESSION: No ureteral calculus or hydroureteronephrosis is noted to account for the right flank pa in Nonobstructed left nephrolithiasis Severe bilateral renal atrophy Nonspecific thickening of the wall of the left renal pelvis. Infection or urothelial malignancy is no t excluded. 1.8 cm right renal probable cyst Diverticulosis of the colon Normal appendix Status post prostatectomy and bilateral pelvic lymph node dissection Mild patchy tree-in-bud infiltrate in the right lower lobe, which may be due to infection or aspirati on Cardiomegaly Small sliding hiatal hernia Cholelithiasis Reviewed, dictated and finalized at [facility] Reviewed, dictated and finalized at [facility]. IMPRESSION: No ureteral calculus or hydroureteronephrosis is noted to account for the right flank pain Nonobstructed left nephrolithiasis Severe bilateral renal atrophy Nonspecific thickening of the wall of the left renal pelvis. Infection or uroth elial malignancy is not excluded. 1.8 cm right renal probable cyst Diverticulosis of the colon Normal appendix Status post prostatectomy and bilateral pelvic lymph node dissection Mild patchy tree-in-bud inf
--- NOTE | 2024-01-16 09:30 | ED.BACK ---
HPI - Back Pain/Injury General Chief Complaint: Back Pain/Injury Stated Complaint: R FLANK PAIN X1D Time Seen by Provider: 01/16/24 08:45 History of Present Illness HPI Narrative: 73-year-old male presenting to the emergency department for evaluation for right flank pain. Patient states he began having the right flank pain last night with ambulation as he was at his granddaughter's rehearsal dinner. Patient states that he has right flank pain that is worsened with ambulation. While at rest patient states the pain is controlled. Patient reports the pain is improved when lying on his right side. Patient denies any specific incident of falls or injuries. Patient has no prior history of kidney stones. Patient denies any associated chest pain or abdominal pain. Patient denies any hematuria. Related Data Home Medications Medication Instructions Recorded Confirmed atorvastatin 10 mg tablet 10 mg PO DAILY 04/02/21 10/01/21 calcitriol 0.25 mcg capsule 0.25 mcg PO DAILY 04/02/21 10/01/21 hydralazine 25 mg tablet 25 mg PO Q12H 04/02/21 10/01/21 ipratropium 20 mcg-albuterol 100 1 spray inhalation PRN PRN 04/02/21 10/01/21 mcg/actuation mist for inhalation Bronchodilation (Combivent Respimat) aspirin 81 mg tablet 81 mg PO DAILY 05/04/21 10/01/21 multivit with minerals-iron 18 1 tablet PO DAILY 05/04/21 10/01/21 mg-folic ac 400 mcg-vit K 25 mcg tablet (Adults Multivitamin) omega-3 fatty acids-vitamin E 2 cap PO Q12H 05/04/21 10/01/21 1,000 mg capsule sodium bicarbonate 650 mg tablet 1,300 mg PO TID 05/04/21 10/01/21 Allergies Allergy/AdvReac Type Severity Reaction Status Date / Time No Known Allergies Allergy Unverified 10/01/21 12:24 Review of Systems Review of Systems: All systems reviewed & are unremarkable except as noted in HPI and below PMFSH Past Medical History Medical History (Updated 01/16/24 @ 12:29 by Wale Tejeda MD) CKD (chronic kidney disease) stage V COPD (chronic obstructive pulmonary disease) Coronary disease Gout History of heart attack 2009 Hyperlipidemia Hypertension Prostate cancer Surgical History Surgical History H/O prostatectomy History of coronary artery stent placement x1 Family History Family History Father Family history of primary malignant neoplasm of liver Social History Social History Smoking packs per day: 2 Smoking cigarettes per day: 40.0 Years smoked: 50 Smoking pack-years: 100.00 Smoking status: Current every day smoker Tobacco type: cigarettes Additional smoking assessment comments: quit 3 weeks ago Alcohol intake: never Drinks per week: 3 Substance use: never Substance use type: does not use Living arrangements: with family Spiritual care concerns: No Exam Narrative: APPEARANCE: Uncomfortable appearing HEAD: normocephalic, atraumatic. EYES: PERRLA/EOMI, conjunctivae clear. NOSE: Normal no drainage EARS:TMS clear with good light reflex. THROAT: Pharynx clear, no exudate. NECK: Supple. No adenopathy, no masses. RESPIRATORY: Airway patent, respirations nonlabored. Clear to auscultation bilaterally, no rales, rhonchi, wheezing. CARDIOVASCULAR: Regular rate and rhythm without murmurs rubs or gallops. ABDOMINAL: Soft, nontender, nondistended, normal bowel sounds MUSCULOSKELETAL: No midline back tenderness to palpation, lumbar back tenderness to palpation, right CVA tenderness NEURO: Alert. Cranial nerves II through XII intact. Grossly intact SKIN: Warm, dry. Normal Color Course Vital Signs Vital signs: Vital Signs Temperature 98.7 F 01/16/24 10:06 Pulse Rate 83 01/16/24 10:06 Respiratory Rate 20 01/16/24 10:06 Blood Pressure 158/77 H 01/16/24 10:06 Pulse Oximetry 98 01/16/24 10:06 Oxygen Delivery Room Air 01/16/24 10:06
[2024-01-16] MEDS: CYCLOBENZAPRINE HCL 10 MG TABLET PO (10:04)
[2024-01-16] MEDS: HYDROcodone/acetaminophen (*CRX) 5-325 MG TABLET 1 TAB PO (10:05)
[2024-01-16 10:06] VITALS: BP 158/77; PULSE 83; RESP 20; TEMP 37.1; O2SAT 98
--- NOTE | 2024-01-16 10:28 | PC.NURSE ---
1000-PATIENT WAS TAKEN TO BATHROOM FOR URINE SPECIMEN. PATIENT HAD URINE SPECIMEN CUP IN HIS HAND BUT URINATED INTO TOILET AND DID NOT OBTAIN SPECIMEN.
[2024-01-16 11:24] LABS: Basophils Percent Auto 0.4 % (0.2-1.2); Eosinophils Absolute Auto 0.2 K/mm3 (0-0.3); Eosinophils Percent Auto 2.3 % (0-4.4); Hematocrit 37.2 % (42.0-52.0); Hemoglobin 12.1 g/dL (14.0-18.0); Immature Granulocyte Absolute 0.03 K/mm3 (0.00-0.031); Immature Granulocyte Percent A 0.3 % (0-0.5); Lymphocytes Percent Auto 12.3 % (18.3-44.2); Mean Corpuscular HGB Conc 32.5 g/dl (32-36); Mean Corpuscular Hemoglobin 30.6 pg (26-34); Mean Corpuscular Volume 93.9 fl (80-100); Mean Platelet Volume 8.5 fl (7.4-10.4); Monocytes Absolute Auto 0.8 K/mm3 (0.1-0.6); Monocytes Percent Auto 8.7 % (2.6-8.5); Neutrophils Absolute Auto 6.8 K/mm3 (1.3-6.7); Platelet Count Result 239 k/mm3 (150-375); Red Blood Count 3.96 M/mm3 (4.6-6.20); Red Cell Distribution Width 14.5 % (11.5-14.5)
[2024-01-16 11:30] LABS: Appearance Urine Clear (Clear); Bacteria Urine None Seen /hpf; Bilirubin Urine Negative (Negative); Blood Urine Negative (Negative); Color Urine Yellow (Yellow); Glucose Urine UA Negative (Negative); Ketones Urine Negative (Negative); Leukocyte Esterase Ur Negative LEU/UL (Negative); Nitrate Urine Negative (Negative); Non Pathogenic Casts 0-2; Protein Urine 2+ mg/dL (Negative); RBC Urine 0-2 /hpf (0-2); Specific Grav Ur 1.013 (1.001-1.035); Squamous Epithelial Cell Urine None Seen /hpf (Few); Urobilinogen Urine 0.2 mg/dL (<2.0); WBC Urine 0-5 /hpf (0-3); pH Urine 7.5 (5.0-9.0)
[2024-01-16 11:31] LABS: Alanine Aminotransferase 13 U/L (6-50); Albumin Level 4.4 g/dL (3.5-5.1); Alkaline Phosphatase 70 U/L (38-126); Anion Gap 10 mmol/L (4-12); Aspartate Amino Transferase 17 U/L (17-59); Bilirubin,Total 0.8 mg/dL (0.2-1.3); Blood Urea Nitrogen 50 mg/dL (9-20); Calcium 9.6 mg/dL (8.4-10.2); Carbon Dioxide 22 mmol/L (22-30); Chloride 109 mmol/L (98-107); Estimated CRCL calculation 18 ml/min; Estimated Glomerular Filt Rate 12; Glucose 105 mg/dL (65-110); Potassium 4.8 mmol/L (3.4-5.0); Sodium 141 mmol/L (137-145)
[2024-01-16 11:34] LABS: Add Urine Microscopic? YES
[2024-01-16 11:37] LABS: INR 1.1; Prothrombin Time 14.6 Seconds (11.1-14.7)
[2024-01-16 12:44] VITALS: BP 150/80; PULSE 80; RESP 20; O2SAT 100
[2024-01-16] MEDS: AZITHROMYCIN 250 MG TABLET 500 MG PO (12:44)
[2024-01-16] MEDS: AMOXICILLIN/CLAVULANATE K 875-125 MG TAB 1 TABLET PO (12:44)
== END 2024-01-16 12:47 | disposition home or self-care (01) ==
PROVIDERS: Emergency Provider Emergency Medicine; PCP Physician Assistant
DX: J18.9 Pneumonia, unspecified organism (principal); R10.9 Unspecified abdominal pain; I12.0 Hypertensive chronic kidney disease with stage 5 chronic kidney disease or end stage renal disease; N18.5 Chronic kidney disease, stage 5; J44.9 Chronic obstructive pulmonary disease, unspecified; I25.10 Atherosclerotic heart disease of native coronary artery without angina pectoris; I25.2 Old myocardial infarction; E78.5 Hyperlipidemia, unspecified; Z95.5 Presence of coronary angioplasty implant and graft; Z85.46 Personal history of malignant neoplasm of prostate; Z90.79 Acquired absence of other genital organ(s); Z79.899 Other long term (current) drug therapy; Z79.82 Long term (current) use of aspirin; N20.0 Calculus of kidney; K57.90 Diverticulosis of intestine, part unspecified, without perforation or abscess without bleeding; I51.7 Cardiomegaly; K44.9 Diaphragmatic hernia without obstruction or gangrene; K80.20 Calculus of gallbladder without cholecystitis without obstruction
CPT/HCPCS: 36415; 74176; 80053; 81001; 85025; 85610; 85730; 99284; A9270

== ENCOUNTER 2024-12-23 15:48 | Emergency (ER) | payer MEDICARE, SELFPAY ==
[2024-12-23] VITALS (14 sets, daily range): BP systolic 117–165; BP diastolic 66–94; PULSE 120–130; RESP 20–38; TEMP 36.6; O2SAT 94–100
--- NOTE | ~2024-12-23 | CT_ITS ---
CLINICAL INDICATION: Abdominal pain COMPARISON: 01/16/2024. TECHNIQUE: Multiple contiguous axial images of the abdomen and pelvis were performed without the admi nistration of intravenous contrast The dose-length product (DLP) was 1290.94 mGy-cm. Automated exposure control and iterative reconstruction technique were employed. FINDINGS/OBSERVATIONS: Visualized lower thorax: Interval development of a right-sided pleural effusion, when compared with prior study. The bilateral lung bases are otherwise clear. The heart is enlarged, without pericardial effusion. Small hiatal hernia is present. Redemonstration of a subcutaneous soft tissue mass within the soft tissues of the upper anterior abdo hattie wall, to the midline. This mass measures 5.2 x 8 x 9.2 cm (anterior to posterior x medial to la teral x cranial to caudal dimension), unchanged from 2021. Liver: The liver demonstrates homogeneous attenuation and is not enlarged. Gallbladder and biliary system: The gallbladder is distended, and contains layering stones, with trace surrounding inflammatory xiao e. Pancreas: Limited evaluation of the pancreas secondary to the lack of intravenous contrast. Spleen: The spleen demonstrates homogeneous attenuation and is not enlarged. Kidneys: The bilateral kidneys are atrophic, and without hydronephrosis. Multiple 2 and 3 mm renal calculi are detected bilaterally. Extensive vascular calcifications are also noted. The bilateral kidneys are nodular in contour, with further evaluation limited secondary to the lack o f intravenous contrast. Adrenal glands: Unremarkable. Gastrointestinal tract: Colonic diverticulosis without surrounding inflammatory change. Appendix: The air-filled appendix is of normal caliber (axial series, images 131 through 145). Vasculature: Densely calcified atherosclerotic disease. Lymph nodes: No pathologically enlarged or morphologically suspicious lymph nodes within the retroperitoneum or at the root of the mesentery. Pelvic structures: The bladder is decompressed and contains thickened [place]. The prostate gland is not visualized, possibly surgically absent. Body wall and musculoskeletal: Small fat-containing umbilical hernia. Redemonstration of significant degenerative disease within the lower lumbosacral spine with grade 2 a nterolisthesis of L5 onto S1, unchanged. Vacuum phenomena, facet arthropathy and disc space narrowing are also seen. IMPRESSION: Right-sided pleural effusion, an interval change from prior. Cholelithiasis with gallbladder distention and trace surrounding inflammatory change. Bilateral renal calculi, without obstruction. Reviewed, dictated and finalized at location A. IMPRESSION: Right-sided pleural effusion, an interval change from prior. Cholelithiasis with gallbladder distention and trace surrounding inflammatory c hange. Bilateral renal calculi, without obstruction.
--- NOTE | ~2024-12-23 | XR_ITS ---
CHEST RADIOGRAPH CLINICAL HISTORY: shortness of breath . COMPARISON: 12/12/2021 TECHNIQUE: Single portable view of the chest. FINDINGS Interval placement of a tunneled right internal jugular central venous hemodialysis catheter with its tip projecting over the superior vena cava. The remainder of the cardiomediastinal silhouette is otherwise unremarkable. Right-sided pleural effusion is redemonstrated, decreased in size from prior. The left lung is clear. IMPRESSION: Right-sided pleural effusion without focal infiltrate. Reviewed, dictated and finalized at location A.
--- NOTE | ~2024-12-23 | US_ITS ---
EXAM: ABDOMEN ULTRASOUND HISTORY: cholelithiasis with inflamm changes COMPARISON: Reference is made to a CT examination of the abdomen and pelvis performed approximately 1 hour earlier. FINDINGS: LIVER: The liver is unremarkable in echogenicity and size. GALLBLADDER: The gallbladder is markedly distended with layering stones. Mural thickening is identified without hyperemia or pericholecystic fluid. BILE DUCTS: Common bile duct measures 4.8mm. PANCREAS: Limited evaluation of the pancreas secondary to overlying bowel gas Right-sided pleural effusion is incidentally noted, consistent with recent CT examination. IMPRESSION: Gallbladder distention with mural thickening and multiple layering stones. These findings in the appr opriate clinical scenario may represent the presence of acute cholecystitis for which clinical correl ation is needed. Reviewed, dictated and finalized at location A. IMPRESSION: Gallbladder distention with mural thickening and multiple layering stones. Thes e findings in the appropriate clinical scenario may represent the presence of a cute cholecystitis for which clinical correlation is needed.
--- NOTE | 2024-12-23 15:50 | ECG_ITS ---
Test Date: 2024-12-23 16:03:15 Measurements Intervals [place] Rate: 127 P: 39 MO: 218 QRS: 266 QRSD: 158 T: 72 QT: 375 QTc: 546 Interpretive Statements SINUS TACHYCARDIA WITH FIRST DEGREE AV BLOCK MARKED RIGHT AXIS DEVIATION [QRS AXIS > 100] RIGHT BUNDLE BRANCH BLOCK [120+ ms QRS DURATION, UPRIGHT V1, 40+ ms S IN I/aVL/V4/V5/V6] POSSIBLE ANTEROSEPTAL MYOCARDIAL INFARCTION [30 ms Q WAVE IN V1-V4], OF INDETERMINATE AGE INTERPRETATION BASED ON A DEFAULT AGE OF 40 YEARS No previous ECG available for comparison Electronically Signed On 12-24-2024 17:06:50 CDT by Luis Enrique Ayala M.D.
--- OUTSIDE RECORDS SUMMARY | 2024-12-23 15:51 | XMS_ITS | Encounter Summary ---
Author Organization [facility] Healthcare Address [address] [place] [address] Care Team Providers Care Plastic Bubble Packer Name Role Phone Mal Jauregui MD Primary Care Provider Reason for Visit * Reason Comments Follow-up 1 mo f/u Coronary Artery Disease Encounter Details Date Type Department Care Team (Late st Contact Info) Description 12/22/2024 1:30 PM CDT Office Visit [facility] Cardiology [address] [address] Orlando Porter MD [address] [facility] [address] [phone] History of coronary artery stent placement (Primary Dx); Coronary artery disease of [place] artery of [place] heart with stable angina pectoris; Longstanding persistent atrial fibrillation (HCC) Social History Tobacco Use Types Packs/Day Years Used Date Smoking Tobacco: Former Cigarettes Q uit: 08/03/2024 Alcohol Use Standard Drinks/Week Comments Yes 0 (1 standard drink = 0.6 oz pur e alcohol) [facility] Utilities Answer Date Recorded In the past 12 months has [employer] electric, gas, oil, or water company threatened to shut off services in your home? Patient unable to answer 11/10/2024 Social Connection and Isolation Panel [NHANES] A nswer Date Recorded In a typical week, how many times do you talk on the phone with family, friends, or neighbors? Patient unable to answer 11/10/2024 How often do you get togethe r with friends or relatives? Patient unable to answer 11/10/2024 How often do you attend chur ch or islam services? Patient unable to answer 11/10/2024 Do you belong to any clubs o r organizations such as hindu groups, unions, fraternal or athletic groups, or school groups? Patient unable to answer 11/10/2024 How often do you attend meet ings of the clubs or organizations you belong to? Patient unable to answer 11/10/2024 Are you , , di vorced, , never , or living with a partner? Patient unable to answer 11/10/2024 AUDIT-C Answer Date Recorded Q1: How often do you have a drink containing alcohol? Never 12/20/2024 Q2: How many drinks containi ng alcohol do you have on a typical day when you are drinking? Patient does not drink Q3: How often do you have si x or more drinks on one occasion? Never 12/20/2024 Overall Financial Resource Strain (CARDIA) Answe r Date Recorded How hard is it for you to pa y for the very basics like food, housing, medical care, and heating? Patient unable to answer 11/10/2024 PHQ-2 Answer Date Recorded PHQ-2 Total Score (If total score is 3 or more points, staff should administer the PHQ-9) 0 11/15/2024 Hunger Vital Sign Answer Date Recorded Within the past 12 months, y ou worried that your food would run out before you got the money to buy more. Patient unable to answer 11/10/2024 Within the past 12 months, t he food you bought just didn't last and you didn't have money to get more. Patient unable to answer 11/10/2024 PRAPARE - Transportation Answer Date Re corded In the past 12 months, has l ack of transportation kept you from medical appointments or from getting medications? Patient unable to answer 11/10/2024 In the past 12 months, has l ack of transportation kept you from meetings, work, or from getting things needed for daily living? Patient unable to answer 11/10/2024 Housing Stability Vital Sign Answer Ilya e Recorded In the last 12 months, was t here a time when you were not able to pay the mortgage or rent on time? Patient unable to answer 11/10/2024 In the past 12 months, how m any times have you moved where you were living? 0 11/10/2024 At any time in the past 12 m [facility], were you homeless or living in a fci (including now)? Patient unable to answer 11/10/2024 Personal Safety Answer Date Recorded Have you ever been in or are you currently in a harmful physical or emotional relationship or is someone making you feel afraid or unsafe? 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 Gender Identity Not on file Sexual Orientation Not on file documented as of this encounter Last Filed Vital Signs Vital Sign Reading Time Taken Comments Blood Pressure 110/64 12/22/2024 1:09 PM CDT Pulse 128 12/22/2024 1:09 PM CDT Temperature - - Respiratory Rate - - Oxygen Saturation 99% 12/22/2024 1:09 PM CDT Inhaled Oxygen Concentration - - Weight 120.9 kg (266 lb 9.6 oz) 12/22/2024 1:09 PM CDT Height 190.5 cm (6' 3 ) 12/22/2024 1:09 PM CDT Body Mass Index 33.32 12/22/2024 1:09 PM CDT documented in this encounter Progress Notes * Orlando Porter MD - 12/22/2024 1:30 PM CDT [facility] FO[facility] 12/22/2024 Lamin Ann is a 74 y.o. male who presents for follow up of coronary artery disease and previous PCI. The patient presented in December of 2009 with acute coronary syndrome and underwent PCI of his right coronary artery which was a non dominant vessel although relatively moderate in size. Patient was a heavy cigarette smoker prior to his PCI but quit after that intervention. The patient has not had any ischemic problems since then in the intervening years he has been found to have chronic kidney disease he has stage 4 kidney disease and is followed by a net application architect as well. He returns today for annual follow-up. He has not been well since his last appointment with me. 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 It looks like he was hospitalized at [facility] couple of times because of this. He had a dialysis catheter placed by vascular surgery down there. It looks like in October of this year he went into atrial fibrillation and has been anticoagulated and managed with rate control. There have been problems with hypotension occurring during dialysis. In the office today he is tachycardic but regular his ECG is most consistentwith atypical atrial flutter with a heart rate of 130. Spoke to the patient and his at some length about this. I told him that I believe we should recommend a strategy to try to restore sinus rhythm. He has not been in atrial fibrillation / flutter that long this began in October when he was at [facility]. He has an appointment early January to have surgery at [place] to create a AV fistula. REVIEW OF SYSTEMS General ROS: negative for - chills, fatigue, fever, malaise, night sweats, weight gain or weight loss Psychological ROS: negative for - anxiety, depression, memory difficulties or sleep disturbances Ophthalmic ROS: negative for - blurry vision, decreased vision, loss of vision or scotomata ENT ROS: negative for - epistaxis, headaches, hearing change, nasal congestion, nasal discharge, sore throat, vertigo or visual changes Hematological and Lymphatic ROS: negative for - bleeding problems, blood clots, bruising, fatigue or weight loss Endocrine ROS: negative for - hot flashes, palpitations, polydipsia/polyuria or unexpected weight changes Respiratory ROS: negative for - cough, hemoptysis, orthopnea, shortness of breath, tachypnea or wheezing Cardiovascular ROS: negative for - chest pain, dyspnea on exertion, edema, irregular heartbeat, loss of consciousness, murmur, orthopnea, palpitations, paroxysmal nocturnal dyspnea, rapid heart rate or shortness of breath Gastrointestinal ROS: negative for - abdominal pain, appetite loss, blood in stools, constipation, diarrhea, gas/bloating, heartburn, hematemesis, melena or nausea/vomiting Genito-Urinary ROS: negative for - dysuria, erectile dysfunction or hematuria Musculoskeletal ROS: negative for - joint pain, muscle pain or muscular weakness Dermatological ROS: negative for dry skin, eczema, pruritus and rash HOME MEDICATIONS Current Outpatient Medications: acetaminophen (TYLENOL) 325 mg tablet, Take 2 tablets (650 mg total) by mouth every 6 (six) hours as needed for pain, Disp: , Rfl: albuterol HFA (PROVENTIL HFA,VENTOLIN HFA,PROAIR HFA) 90 mcg/actuation inhaler, INHALE 2 PUFFS BY MOUTH EVERY 4 HOURS NEEDED FOR SHORTNESS OF BREATH OR WHEEZING (Patient taking differently: Inhale1 puff every 6 (six) hours as needed for wheezing or shortness of breath), Disp: 8.5 g, Rfl: 3 allopurinoL (ZYLOPRIM) 100 mg tablet, Take 1 tablet (100 mg total) by mouth daily before breakfast,Disp: , Rfl: apixaban (ELIQUIS) 5 mg tablet, Take 1 tablet (5 mg total) by mouth every 12 (twelve) hours (Patient taking differently: Take 1 tablet (5 mg total) by mouth 2 (two) times a day), Disp: 60 tablet, Rfl: 11 aspirin 81 mg tablet, take 1 Tablet (81MG) by oral route every day (Patient taking differently: Take 1 tablet (81 mg total) by mouth daily before breakfast), Disp: , Rfl: 0 atorvastatin (LIPITOR) 10 mg tablet, Take 1 tablet (10 mg total) by mouth daily before breakfast, Disp: , Rfl: calcitRIOL (ROCALTROL) 0.5 mcg capsule, Take 1 capsule (0.5 mcg total) by mouth 3 (three) times a week Given at dialysis, Disp: , Rfl: Combivent Respimat 20-100 mcg/actuation inhaler, Inhale 1 puff 4 (four) times a day as needed for wheezing or shortness of breath, Disp: , Rfl: rnrddkqtplh-rdtonwlly-ejwsuxbh (Trelegy Ellipta) 100-62.5-25 mcg inhaler, Inhale 1 puff daily before breakfast, Disp: , Rfl: ipratropium-albuteroL (DUO-NEB) 0.5-2.5 mg/3 mL nebulizer solution, Take 3 mL by nebulization 2 (two) times a day (Patient taking differently: Take 3 mL by nebulization 2 (two) times a day), Disp: 180 mL, Rfl: 3 metoprolol XL (TOPROL-XL) 50 mg extended release tablet, Take 1 tablet (50 mg total) by mouth nightly (Patient taking differently: Take 1 tablet (50 mg total) by mouth nightly), Disp: 90 tablet, Rfl:1 multivitamin with folic acid 400 mcg tablet, Take 1 tablet by mouth daily (Patient taking differently: Take 1 tablet by mouth daily before breakfast), Disp: 90 tablet, Rfl: 1 nitroglycerin (NITROSTAT) 0.4 mg SL tablet, Place 1 tablet (0.4 mg total) under the tongue every 5 (five) minutes as needed for chest pain Maximum of 3 tablets in 15 minutes., Disp: 25 tablet, Rfl: [address] (PROTONIX) 40 mg EC tablet, Take 1 tablet (40 mg total) by mouth 2 (two) times a day (Patient taking differently: Take 1 tablet (40 mg total) by mouth 2 (two) times a day), Disp: 180 tablet, Rfl: 0 sacubitriL-valsartan (ENTRESTO) 24-26 mg tablet, Take 0.5 tablets by mouth 2 (two) times a day, Disp: 30 tablet, Rfl: 11 sodium bicarbonate 650 mg tablet, Take 2 tablets (1,300 mg total) by mouth 3 (three) times a day, Disp: , Rfl: sodium citrate-citric acid (CYTRA 2) 100-66.8 mg/mL solution, Take 15 mL by mouth 3 (three) times aday with meals TAKE 15 ML BY MOUTH IN THE MORNING AND AT NOON AND IN THE EVENING WITH MEALS, Disp: , Rfl: LABS AND OTHER DIAGNOSTIC TESTS Lab Results Component Value Date CHOL 124 10/21/2024 CHOL 162 06/04/2024 CHOL 192 04/21/2015 Lab Results Component Value Date HDL 29 (L) 10/21/2024 HDL 61 06/04/2024 HDL 66 04/21/2015 Lab Results Component Value Date LDLCALC 58 10/21/2024 LDLCALC 82 06/04/2024 Lab Results Component Value Date TRIG 229 (H) 10/21/2024 TRIG 104 06/04/2024 TRIG 116 04/21/2015 Lab Results Component Value Date CHOLHDL 4 10/21/2024 Lab Results Component Value Date WBC 28.7 (H) 10/27/2024 HGB 10.1 (L) 10/27/2024 HCT 34.7 (L) 10/27/2024 MCV 100.9 (H) 10/27/2024 No lab exists for component: LABALBU PHYSICAL EXAM Vitals BP 110/64 (BP Location: Left arm, Patient Position: Sitting) Pulse (!) 128 Ht 190.5 cm (6' 3 ) Wt 120.9 kg (266 lb 9.6 oz) SpO2 99% BMI 33.32 kg/m?? Physical Examination: General appearance - alert, well appearing, and in no distress, oriented to person, place, and time and acyanotic, in no respiratory distress Mental status - affect appropriate to mood Eyes - extraocular eye movements intact, sclera anicteric, no pallor Ears - external earsappear normal, hearing grossly normal bilaterally Nose - normal and patent, no erythema or discharge Mouth - mucous membranes moist, pharynx appears normal, dental hygiene good and tongue normal Neck - supple, no significant neck masses, carotids upstroke normal bilaterally, no bruits, no JVD Chest -tubular breath sounds are noted bilaterally but no wheezing no rales no rhonchi, symmetric air entry, no tachypnea, retractions or cyanosis Heart - Tachycardic regular rhythmnormal S1, S2, no murmurs, rubs, clicks or gallops, no JVD Abdomen - soft, nontender, nondistended, no masses or organomegaly bowel sounds normal Neurological - alert, oriented, normal speech, no focal findings or movement disorder noted Musculoskeletal - no joint tenderness, deformity or swelling, no muscular tenderness noted Extremities - peripheral pulses normal, no pedal edema, no clubbing or cyanosis Skin - normal coloration and turgor, no rashes, no suspicious skin lesions noted ASSESSMENT Lamin was seen today for follow-up and coronary artery disease. Diagnoses and all orders for this visit: History of coronary artery stent placement Coronary artery disease of [place] artery of [place] heart with stable angina pectoris Atrial flutter PLAN/RECOMMENDATIONS Start amiodarone 200 mg daily Continue anticoagulation Follow-up in 1 month if he is still in AF will consider/plan arranging for DC cardioversion Orlando Porter MD documented in this encounter Miscellaneous Notes * Addendum Note - Mal Dukes MA - 12/22/2024 1:30 PM CDTAddended by: MAL DUKES on: 12/22/2024 03:43 PM Modules accepted: Orders documented in this encounter Plan of Treatment Upcoming Encounters Date Type Department Care Team (Late st Contact Info) Description 01/03/2025 7:30 AM CDT Hospital Encounter [facility] Operating Room [address] [place] [address] Jon Pope MD PhD [id number] [place] [address] 01/03/2025 7:30 AM CDT Anesthesia Event [facility] Operating Room [address] [place] [address] China Mercado, TIMERS INSPECTOR [address] [facility] [id number] [place] [address] 01/03/2025 7:30 AM CDT - 01/03/2025 11:15 AM CDT Surgery [facility] Operating Room [address] [place] [address] Jon Pope MD PhD [id number] [place] [address] CREATION ARTERIOVENOUS FISTULA - ARM Scheduled Procedures Name Priority Associated Diagnoses Date/Ti me CREATION ARTERIOVENOUS FISTULA - ARM ESRD (end stage renal disease) (HCC) 01/03/2025 7:30 AM CDT ARTERIOVENOUS GRAFT - LOWER EXTREMITY ESRD (end stage renal disease) (HCC) 01/03/2025 7:30 AM CDT documented as of this encounter Procedures Procedure Name Priority Date/Time Associated Diagnosis Comments ELECTROCARDIOGRAM REPORT Routine 3:43 PM CDT Longstanding persistent atrial fibrillation (HCC) documented in this encounter Results * Electrocardiogram Report (12/22/2024 3:43 PM CDT) us Orlando Porter MD ECG ORDERABLES Final Re sult documented in this encounter Visit Diagnoses Diagnosis ESRD (end stage renal disease) (HCC)- Primary End stage renal disease History of coronary artery stent placement- Primary Coronary artery disease of [place] artery of [place] heart with stable angina pectoris Longstanding persistent atrial fibrillation (HCC) ESRD (end stage renal disease) (HCC) End stage renal disease documented in this encounter Care Teams Plastic Bubble Packer Relationship Specialty Start Date End Date Mal Jauregui MD [address] [place] [id number] PCP - General Internal Medicine 03/29/24 documented as of this encounter
--- OUTSIDE RECORDS SUMMARY | 2024-12-23 15:51 | XMS_ITS | Encounter Summary ---
Author Organization [facility] Address [address] [place] [address] Phone Care Team Providers Care Cutter And Paster Press Clippings Name Role Phone Orlando Lara MD Primary Care Provider [phone] Reason for Visit * Reason Comments Med Refill Encounter Details Date Type Department Care Team (Late st Contact Info) Description 08/18/2019 Refill [facility] [address], [address] [place], [place] [phone] Uday Jones MD [address] [address] Social History Tobacco Use Types Packs/Day Years Used Date Smoking Tobacco: Former Smokeless Tobacco: Never Comments:Smoking History Pac ks/day: quit - 8 months ago Alcohol Use Standard Drinks/Week Comments Yes 0 (1 standard drink = 0.6 oz pure alcohol) Alcoholic Drinks/day: occasional use Sex and Gender Information Value Date Recorded Sex Assigned at Not on file Legal Sex Male 9:08 AM MST Gender Identity Not on file Sexual Orientation Not on file documented as of this encounter Plan of Treatment Upcoming Encounters Date Type Department Care Team (Late st Contact Info) Description 01/03/2025 1:40 PM CDT Office Visit [facility] [address], [address] [place], [place] [phone] Rosemary Hugo NP [address] [address] documented as of this encounter Visit Diagnoses Not on filedocumented in this encounter Care Teams Cutter And Paster Press Clippings Relationship Specialty Start Date End Date Orlando Lara MD [address] [facility] [address] [place] [phone] PCP - General 09/07/24 documented as of this encounter
--- OUTSIDE RECORDS SUMMARY | 2024-12-23 15:51 | XMS_ITS | Encounter Summary ---
Author Organization [facility] Address [address] [place] [address] Phone Care Team Providers Care Vice President & General Manager [employer] Name Role Phone Orlando Lara MD Primary Care Provider [phone] Reason for Visit * Reason Comments Med Refill Encounter Details Date Type Department Care Team (Late st Contact Info) Description 06/11/2019 Refill [facility] [address], [address] [place], [place] [phone] Uday Jones MD [address] [address] Social History Tobacco Use Types [...] Description 01/03/2025 1:40 PM CDT Office Visit [facility] [address], [address] [place], [place] [phone] Rosemary Hugo NP [address] [address] documented as of this encounter Visit Diagnoses Not on filedocumented in this encounter Care Teams Vice President & General Manager [employer] Relationship Specialty Start Date End Date Orlando Lara MD [address] [facility] [address] [place] [phone] PCP - General 09/07/24 documented as of this encounter
--- OUTSIDE RECORDS SUMMARY | 2024-12-23 15:51 | XMS_ITS | Clinical Summary ---
Author Organization [facility] Address [address] [place] [phone] Phone Care Team Providers Care Trucker Hand Name Role Phone Orlando Lara MD Primary Care Provider [phone] Allergies No known active allergies Medications Multiple Vitamins-Mineral s (MENS MULTI VITAMIN & MINERAL) tablet 1 tab daily 0 8 Active omega-3 (FISH OIL) 1000 MG capsule two capsules two times daily 0 7 Active aspirin (ST AMELIA) 81 MG EC tablet one tab daily 0 7 Active Ipratropium-Albu terol (COMBIVENT RESPIMAT IN) Inhale 4 times a day Active hydrALAZINE (APRESOLINE) 25 MG tablet Take 1 tablet (25 mg total) by mouth in the morning and 1 tablet (25 mg total) before bedtime. 180 tablet 1 4 Active amLODIPine (NORVASC) 10 MG tablet TAKE 1 TABLET(10 MG) BY MOUTH EVERY DAY 90 tablet 1 4 Active Fluticasone-Umec lidin-Vilant (Trelegy Ellipta) 100-62.5-25 MCG/ACT aerosol powder Inhale Active calcitriol (ROCALTROL) 0.5 MCG capsule TAKE 1 CAPSULE(0.5 MCG) BY MOUTH 1 TIME EACH DAY 90 capsule 1 5 Active citric acid-sodium citrate (BICITRA) 500-334 MG/5ML solution TAKE 15 ML BY MOUTH IN THE MORNING AND AT NOON AND IN THE EVENING WITH MEALS 1800 mL 5 5 Active sodium bicarbonate 650 MG tablet TAKE 2 TABLETS BY MOUTH THREE TIMES DAILY 540 tablet 1 5 Active furosemide (LASIX) 40 MG tablet TAKE 1/2 TABLET DAILY 45 tablet 1 5 Active atorvastatin (LIPITOR) 10 MG tablet TAKE 1 TABLET(10 MG) BY MOUTH EVERY DAY 90 tablet 1 5 Active allopurinol (ZYLOPRIM) 100 MG tablet TAKE 1 TABLET(100 MG) BY MOUTH 1 TIME EACH DAY 90 tablet 1 5 Active Active Problems Problem Noted Date Diagnosed Date Hyperuricemia 08/27/2023 Secondary hyperparathyroidism of renal origin Hyperkalemia 08/12/2018 Chronic metabolic acidosis 08/12/2018 Hypertensive chronic kidney disease, malignant, 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, or unspecified 10/12/2017 Stage 5 chronic kidney disease 08/27/2017 Resolved Problems Problem Noted Date Diagnosed Date Resolved Date Body fluid retention 04/17/2021 022 Acute gout 04/17/2021 05/16/2021 Shortness of breath 04/17/2021 05/16/20 21 Chronic kidney disease, Stage V 08/08/2020 03/12/2022 Encounters Date Type Department Care Team Description 11/03/2024 Refill [facility] [address] [place] [id number] Rosemary Hugo NP 10/22/2024 Refill [facility] [address] [place] [phone] Uday Jones MD 10/10/2024 Refill [facility] [address] [place] [id number] Rosemary Hugo NP 10/03/2024 Refill [facility] [address] [place] [phone] Mackenzie Delvalle MA from Last 3 Months Immunizations Immunization Administration Dates Next Due Influenza Split High Dose Preservative Free IM 06/04/2017(Deferred: Patient Refused) Influenza TIV (IM) 07/28/2016(Deferred: Patient Refused),07/02/2015(Deferred: Patient Refused) Family History Medical History Relation Comments Kidney disease Neg Hx Social History Tobacco Use Types Packs/Day Years Used Date Smoking Tobacco: Former Smokeless Tobacco: Never Tobacco Cessation:Counseling Given: Not Answered Comments:Smoking History Packs/day: quit - 8 months ago Alcohol Use Standard Drinks/Week Comments Yes 0 (1 standard drink = 0.6 oz pure alcohol) Alcoholic Drinks/day: occasional use Sex and Gender Information Value Date Recorded Sex Assigned at Not on file Legal Sex Male 9:08 AM MST Gender Identity Not on file Sexual Orientation Not on file Last Filed Vital Signs Vital Sign Reading Time Taken Comments Blood Pressure 152/67 09/06/2024 1:27 PM [employer] Pulse 100 09/06/2024 1:27 PM [employer] [facility] Temperature 36.1 C (97 F) 03/12/2022 8:48 AM CDT Respiratory Rate - - Oxygen Saturation - - Inhaled Oxygen Concentration - - Weight 123 kg (271 lb) 09/06/2024 1:27 PM [employer] Height 188 cm (6' 2 ) 09/06/2024 1:27 PM [employer] Body Mass Index 34.79 09/06/2024 1:27 PM [facility]ER Plan of Treatment Upcoming Encounters Date Type Department Care Team (Late st Contact Info) Description 01/03/2025 1:40 PM CDT Office Visit [facility] [id number], [address] [place] [address] Rosemary Hugo, [employer] [address] [address] Health Maintenance Due Date Last Done Comments Pneumococcal PPSV23/PCV13 65 + Years / High and Highest Risk (2 of 4 - PPSV23) 08/27/2018 07/02/2018 Influenza Vaccine (Season Ended) 2025 07/15/20 22 Insurance [employer] MEDICARE Care Teams Trucker Hand Relationship Specialty Start Date End Date Orlando Lara MD [address] [phone] PCP - General 09/07/24
--- OUTSIDE RECORDS SUMMARY | 2024-12-23 15:51 | XMS_ITS | Data Portability ---
Author Organization [facility], Main Office Address [address] [place] [address] Care Team Providers Care Rv Servicer Name Role Phone ALKA BOSS Primary Care Provider [phone] ALKA BOSS Referring Provider [phone] Assessment No assessment recorded. Plan of Treatment Reminders Order Date Submit Date Provider Last Modified By Organization Details Last Modified Time Details Appointments None recorded. Lab None recorded. Referral None recorded. Procedures None recorded. Surgeries None recorded. Imaging CT, chest, w/o contrast - DUE 09/2023 [email or web address] [place] [address] Imaging, [address] [facility] [address], [place], [address], 12:18:32 Medication Orders None recorded. Patient TargetsNo targets recorded. Patient InstructionsNo instructions recorded. Reason for Referral None Reported. Results Created Date Observation Date Name Description Value Unit Range Abnormal Flag Note LastModifiedBy Organization Detail LastModifiedTime 12/22/19 22 12/22/2021 HEMOG LOBIN A1C hemoglobin A1C 5.6 % 4.8-5. 6 Predi abete s: 5.7 - 6.4 Diabe swapnil: >6.4 Glyce gaby contr ol for adult s with diabe swapnil: <7.0 Not Available [facility] ([facility]) [address] [facility], [place], [address], 12/22/2021 08:18:28 12/22/19 22 12/22/2021 LIPID PANEL cholesterol, total 139 mg/dL 100-19 9 Not Available [facility] ([facility]) [address] [facility], [place], [address], 12/22/2021 08:18:28 12/22/19 22 12/22/2021 LIPID PANEL triglyceride s 103 mg/dL 0-149 Not Available [facility] ([facility]) [address] [place], [address], 12/22/2021 08:18:28 12/22/19 22 12/22/2021 LIPID PANEL HDL cholesterol 56 mg/dL >39 Not Available [facility] ([facility]) [address] [place], [address], 12/22/2021 08:18:28 12/22/19 22 12/22/2021 LIPID PANEL VLDL cholesterol chadwick 19 mg/dL 5-40 Not Available [facility] ([facility]) [address] [place], [address], 12/22/2021 08:18:28 12/22/19 22 12/22/2021 LIPID PANEL LDL chol calc ([facility]) 64 mg/dL 0-99 Not Available [facility] ([facility]) [address] [place], [address], 12/22/2021 08:18:28 12/22/19 22 12/22/2021 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 Not Available [facility] ([facility]) [address] [place], [address], 12/22/2021 08:18:28 12/22/19 22 12/22/2021 CBC WITH DIFFE RENTI AL/PL ATELE T WBC 9.9 x10e3 /uL 3.4-10 .8 Not Available [facility] ([facility]) [address] [place], [address], 12/22/2021 08:18:28 12/22/19 22 12/22/2021 CBC WITH DIFFE RENTI AL/PL ATELE T RBC 4.00 x10e6 /uL 4.14-5 .80 below low normal Not Available [facility] ([facility]) [address] [facility] [place], [address], 12/22/2021 08:18:28 12/22/19 22 12/22/2021 CBC WITH DIFFE RENTI AL/PL ATELE T hemoglobin 11.3 g/dL 13.0-1 7.7 below low normal Not Available [facility] ([facility]) [address] [facility], [place], [address], 12/22/2021 08:18:28 12/22/19 22 12/22/2021 CBC WITH DIFFE RENTI AL/PL ATELE T hematocrit 35.7 % 37.5-5 1.0 below low normal Not Available [facility] ([facility]) [address] [facility], [place], [address], 12/22/2021 08:18:28 12/22/19 22 12/22/2021 CBC WITH DIFFE RENTI AL/PL ATELE T MCV 89 fL 79-97 Not Available [facility] ([facility]) [address] [facility], [place], [address], 12/22/2021 08:18:28 12/22/19 22 12/22/2021 CBC WITH DIFFE RENTI AL/PL ATELE T MCH 28.3 pg 26.6-3 3.0 Not Available [facility] ([facility]) [address] [place], [address], 12/22/2021 08:18:28 12/22/19 22 12/22/2021 CBC WITH DIFFE RENTI AL/PL ATELE T MCHC 31.7 g/dL 31.5-3 5.7 Not Available [facility] ([facility]) [address] [place], [address], 12/22/2021 08:18:28 12/22/19 22 12/22/2021 CBC WITH DIFFE RENTI AL/PL ATELE T RDW 14.0 % 11.6-1 5.4 Not Available [facility] ([facility]) [address] [facility], [place], [address], 12/22/2021 08:18:28 12/22/19 22 12/22/2021 CBC WITH DIFFE RENTI AL/PL ATELE T platelets 344 x10e3 /uL 150-45 0 Not Available [facility] ([facility]) [address] [facility], [place], [address], 12/22/2021 08:18:28 12/22/19 22 12/22/2021 CBC WITH DIFFE RENTI AL/PL ATELE T neutrophils 74 % not estab. Not Available [facility] ([facility]) [address] [facility], [place], [address], 12/22/2021 08:18:28 12/22/19 22 12/22/2021 CBC WITH DIFFE RENTI AL/PL ATELE T lymphs 14 % not estab. Not Available [facility] ([facility]) [address] [facility], [place], [address], 12/22/2021 08:18:28 12/22/19 22 12/22/2021 CBC WITH DIFFE RENTI AL/PL ATELE T monocytes 8 % not estab. Not Available [facility] ([facility]) [address] [facility], [place], [address], 12/22/2021 08:18:28 12/22/1912/22/2021 CBC WITH DIFFE RENTI AL/PL ATELE T eos 3 % not estab. Not Available [facility] ([facility]) [address] [facility], [place], [address], 12/22/2021 08:18:28 12/22/19 22 12/22/2021 CBC WITH DIFFE RENTI AL/PL ATELE T basos 1 % not estab. 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 0 above high normal Not Available [facility] ([facility]) [address] [place], [address], 12/22/2021 08:18:28 12/22/19 22 12/22/2021 CBC WITH DIFFE RENTI AL/PL ATELE T lymphs (absolute) 1.4 x10e3 /uL 0.7-3. 1 Not Available [facility] ([facility]) [address] [place], [address], 12/22/2021 08:18:28 12/22/19 22 12/22/2021 CBC WITH DIFFE RENTI AL/PL ATELE T monocytes(ab solute) 0.8 x10e3 /uL 0.1-0. 9 Not Available [facility] ([facility]) [address] [place], [address], 12/22/2021 08:18:28 12/22/19 22 12/22/2021 CBC WITH DIFFE RENTI AL/PL ATELE T eos (absolute) 0.3 x10e3 /uL 0.0-0. 4 Not Available [facility] ([facility]) [address] [place], [address], 12/22/2021 08:18:28 12/22/19 22 12/22/2021 CBC WITH DIFFE RENTI AL/PL ATELE T baso (absolute) 0.1 x10e3 /uL 0.0-0. 2 Not Available [facility] ([facility]) [address] [place], [address], 12/22/2021 08:18:28 12/22/19 22 12/22/2021 CBC WITH DIFFE RENTI AL/PL ATELE T immature granulocytes 0 % not estab. Not Available [facility] ([facility]) [address] [facility], [place], [address], 12/22/2021 08:18:28 12/22/19 22 12/22/2021 CBC WITH DIFFE RENTI AL/PL ATELE T immature grans (abs) 0.0 x10e3 /uL 0.0-0. 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 Not Available [facility] ([facility]) [address] [place], [address], 12/22/2021 08:18:28 12/22/19 22 12/22/2021 TSH+F REE T4 TSH 1.380 uIU/m L 0.450- 4.500 Not Available [facility] ([facility]) [address] [place], [address], 12/22/2021 08:18:27 12/22/1912/22/2021 TSH+F REE T4 T4,free(dire ct) 1.38 NG/dL 0.82-1 .77 Not Available [facility] ([facility]) [address] [place], [address], 12/22/2021 08:18:27 10/05/19 23 10/05/2022 IGG, SUBCL ASSES (1-4) immunoglobul in g, qn, serum 835 mg/dL 603-16 13 Not Available [facility] ([facility]) [address] [place], [address], 10/09/2022 18:35:52 10/05/19 23 10/06/2022 IGG, SUBCL ASSES (1-4) IgG, subclass 1 551 mg/dL 248-81 0 Not Available [facility] ([facility]) [address] [place], [address], 10/09/2022 18:35:52 10/05/19 23 10/06/2022 IGG, SUBCL ASSES (1-4) IgG, subclass 2 122 mg/dL 130-55 5 below low normal Not Available [facility] ([facility]) [address] [place], [address], 10/09/2022 18:35:52 10/05/19 23 10/06/2022 IGG, SUBCL ASSES (1-4) IgG, subclass 3 65 mg/dL 15-102 Not Available [facility] ([facility]) [address] [place], [address], 10/09/2022 18:35:52 10/05/19 23 10/06/2022 IGG, SUBCL ASSES (1-4) IgG, subclass 4 8 mg/dL 2-96 Not Available [facility] ([facility]) [address] [place], [address], 10/09/2022 18:35:52 10/05/19 23 10/05/2022 ALPHA -1-AN TITRY PSIN PHENO TYP tvxrb-1-tusq trypsin, serum 150 mg/dL 101-18 7 Not Available [facility] ([facility]) [address] [place], [address], 10/09/2022 18:35:52 10/05/19 23 10/09/2022 ALPHA -1-AN TITRY PSIN PHENO TYP phenotype (pi) MM Pheno type Popul ation A-1-A T Maria Elena ntrat ion* Incid ence % % of MM (Typi chadwick Range ) MM 86.5% 100% (96 - 189) MS 8.0% 86% (83 - 161) MZ 3.9% 61% (60 - 111) FM 0.4% 100% (93 - 191) SZ 0.3% 41% (42 - 75) SS 0.1% 64% (62 - 119) ZZ 0.05% 19% (16 - 38) FS 0.05% 70% (70 - 128) FZ Unkno wn 46% (44 - 88) FF Unkno wn Unkno wn *A-1- AT maria elena ntrat ion in the homoz ygous MM pheno type is taken as the refer ence yari l. Perce nt defic iency in each pheno type is repor mercy relat jenny to this refer ence. Range s used to confi rm pheno type. Not Available [facility] ([facility]) [address] [place], [address], 10/09/2022 18:35:52 10/05/19 23 10/06/2022 QUANT IFERO N-TB GOLD PLUS quantiferon incubation Incuba tion perfor med. Not Available [facility] ([facility]) [address] [place], [address], 10/09/2022 18:35:53 10/05/1910/06/2022 QUANT IFERO N-TB GOLD PLUS quantiferon criteria Commen t Quant iFERO N-TB Gold Plus is a quali tativ e indir ect test for M tuber culos is infec tion (incl uding disea se) and is inten ded for use in conju nctio n with risk asses sment , radio graph y, and other medic al and diagn ostic evalu ation s. The Quant iFERO N-TB Gold Plus resul t is deter mined by subtr actin g the Nil value from eithe r TB antig en (Ag) value . The Mitog en tube serve s as a contr ol for the test. Not Available [facility] ([facility]) [address] [place], [address], 10/09/2022 18:35:53 10/05/19 23 10/07/2022 QUANT IFERO N-TB GOLD PLUS quantiferon TB1 Ag value 0.01 IU/mL Not Available [facility] ([facility]) [address] [place], [address], 10/09/2022 18:35:53 10/05/19 23 10/07/2022 QUANT IFERO N-TB GOLD PLUS quantiferon TB2 Ag value 0.02 IU/mL Not Available [facility] ([facility]) [address] [place], [address], 10/09/2022 18:35:53 10/05/19 23 10/07/2022 QUANT IFERO N-TB GOLD PLUS quantiferon nil value 0.01 IU/mL Not Available [facility] ([facility]) [address] [place], [address], 10/09/2022 18:35:53 10/05/19 23 10/07/2022 QUANT IFERO N-TB GOLD PLUS quantiferon mitogen value >10.00 IU/mL Not Available [facility] ([facility]) [address] [place], [address], 10/09/2022 18:35:53 10/05/19 23 10/07/2022 QUANT IFERO N-TB GOLD PLUS quantiferon- TB gold plus Negati ve negati ve No respo nse to M tuber culos is antig ens detec mercy. Infec tion with M tuber culos is is unlik holli, but high risk indiv idual s shoul d be consi dered for addit ional testi ng (ATS/ IDSA/ CDC Clini chadwick Pract ice Guide lines , 2017) . The refer ence range is an Antig en minus Nil resul t of <0.35 IU/mL . Chemi lumin escen ce immun oassa y metho dolog y Not Available [facility] ([facility]) [address] [facility], [place], [address], 10/09/2022 18:35:53 10/05/19 23 10/05/2022 EOSIN OPHIL COUNT eos (absolute) 0.3 x10e3 /uL 0.0-0. 4 Not Available [facility] ([facility]) [address] [facility], [place], [address], 10/09/2022 18:35:54 10/05/19 23 10/05/2022 B-TYP E NATRI URETI C PEPTI DE B-type natriuretic peptide 184.9 pg/mL 0.0-10 0.0 above high normal Sieme ns ADVIA [facility] XP metho dolog y Not Available [facility] ([facility]) [address] [facility], [place], [address], 10/09/2022 18:35:54 10/05/19 23 10/04/2022 ALLER GENS W/TOT AL IGE AREA 8 class description Commen t Level s of Speci fic IgE Class Descr iptio n of Class ----- ----- ----- ----- ----- -- ----- ----- ----- ----- ----- < 0.10 0 Negat jenny 0.10 - 0.31 0/I Equiv ocal/ Low 0.32 - 0.55 I Low 0.56 - 1.40 II Moder ate 1.41 - 3.90 III High 3.91 - 19.00 IV Very High 19.01 - 100.0 0 V Very High >100. 00 Very High Not Available [facility] ([facility]) [address] [facility], [place], [address], 10/09/2022 18:35:55 10/05/19 23 10/08/2022 ALLER GENS W/TOT AL IGE AREA 8 immunoglobul in E, total 130 IU/mL 6-495 Not Available [facility] ([facility]) [address] [facility], [place], [address], 10/09/2022 18:35:55 10/05/19 23 10/08/2022 ALLER GENS W/TOT AL IGE AREA 8 F530-FbG D pteronyssinu s <0.10 kU/L class 0 Not Available [facility] ([facility]) [address] [facility], [place], [address], 10/09/2022 18:35:55 10/05/19 23 10/08/2022 ALLER GENS W/TOT AL IGE AREA 8 K406-VeL D farinae <0.10 kU/L class 0 Not Available [facility] ([facility]) [address] [facility], [place], [address], 10/09/2022 18:35:55 10/05/19 23 10/08/2022 ALLER GENS W/TOT AL IGE AREA 8 Q211-WaO CAT dander 0.12 kU/L class 0/I abnormal Not Available [facility] ([facility]) [address] [place], [address], 10/09/2022 18:35:55 10/05/19 23 10/08/2022 ALLER GENS W/TOT AL IGE AREA 8 B097-ShB dog dander 0.13 kU/L class 0/I abnormal Not Available [facility] ([facility]) [address] [place], [address], 10/09/2022 18:35:55 10/05/19 23 10/08/2022 ALLER GENS W/TOT AL IGE AREA 8 f583-HaY bermuda grass <0.10 kU/L class 0 Not Available [facility] ([facility]) [address] [place], [address], 10/09/2022 18:35:55 10/05/19 23 10/08/2022 ALLER GENS W/TOT AL IGE AREA 8 k365-QrP charanjit grass <0.10 kU/L class 0 Not Available [facility] ([facility]) [address] [place], [address], 10/09/2022 18:35:55 10/05/19 23 10/08/2022 ALLER GENS W/TOT AL IGE AREA 8 E849-CyW cockroach, malay <0.10 kU/L class 0 Not Available [facility] ([facility]) [address] [place], [address], 10/09/2022 18:35:55 10/05/19 23 10/08/2022 ALLER GENS W/TOT AL IGE AREA 8 R799-JnC penicillium chrysogen <0.10 kU/L class 0 Not Available [facility] ([facility]) [address] [place], [address], 10/09/2022 18:35:55 10/05/19 23 10/08/2022 ALLER GENS W/TOT AL IGE AREA 8 N918-MkY cladosporium herbarum <0.10 kU/L class 0 Not Available [facility] ([facility]) [address] [place], [address], 10/09/2022 18:35:55 10/05/19 23 10/08/2022 ALLER GENS W/TOT AL IGE AREA 8 I735-UuW aspergillus fumigatus <0.10 kU/L class 0 Not Available [facility] ([facility]) [address] [place], [address], 10/09/2022 18:35:55 10/05/19 23 10/08/2022 ALLER GENS W/TOT AL IGE AREA 8 G683-LqI alternaria alternata <0.10 kU/L class 0 Not Available [facility] ([facility]) [address] [place], [address], 10/09/2022 18:35:55 10/05/19 23 10/08/2022 ALLER GENS W/TOT AL IGE AREA 8 O173-FcH maple/box elder <0.10 kU/L class 0 Not Available [facility] ([place] [facility]) [address], [place], [address], 10/09/2022 18:35:55 10/05/19 23 10/08/2022 ALLER GENS W/TOT AL IGE AREA 8 S212-WbH [place], mountain <0.10 kU/L class 0 Not Available [facility] ([place] [facility]) [address], [place], [address], 10/09/2022 18:35:55 10/05/19 23 10/08/2022 ALLER GENS W/TOT AL IGE AREA 8 B108-XcU oak, white <0.10 kU/L class 0 Not Available [facility] ([place] [facility]) [address], [place], [address], 10/09/2022 18:35:55 10/05/19 23 10/08/2022 ALLER GENS W/TOT AL IGE AREA 8 E518-WvN elm, latvian <0.10 kU/L class 0 Not Available [facility] ([place] [facility]) [address], [place], [address], 10/09/2022 18:35:55 10/05/19 23 10/08/2022 ALLER GENS W/TOT AL IGE AREA 8 H409-ScK maple leaf sycamore <0.10 kU/L class 0 Not Available [facility] ([place] [facility]) [address], [place], [address], 10/09/2022 18:35:55 10/05/19 23 10/08/2022 ALLER GENS W/TOT AL IGE AREA 8 W705-UbQ cottonwood <0.10 kU/L class 0 Not Available [facility] ([place] [facility]) [address], [place], [address], 10/09/2022 18:35:55 10/05/19 23 10/08/2022 ALLER GENS W/TOT AL IGE AREA 8 W828-YkT di, white <0.10 kU/L class 0 Not Available [facility] ([place] [facility]) [address] [facility], [place], [address], 10/09/2022 18:35:55 10/05/19 23 10/08/2022 ALLER GENS W/TOT AL IGE AREA 8 X555-NyL walnut <0.10 kU/L class 0 Not Available [facility] ([place] [facility]) [address] [facility], [place], [address], 10/09/2022 18:35:55 10/05/19 23 10/08/2022 ALLER GENS W/TOT AL IGE AREA 8 F927-OcA pecan, hickory <0.10 kU/L class 0 Not Available [facility] ([place] [facility]) [address] [facility], [place], [address], 10/09/2022 18:35:55 10/05/19 23 10/08/2022 ALLER GENS W/TOT AL IGE AREA 8 Q603-QfN white mulberry <0.10 kU/L class 0 Not Available [facility] ([facility] [facility]) [address] [facility], [place], [address], 10/09/2022 18:35:55 10/05/19 23 10/08/2022 ALLER GENS W/TOT AL IGE AREA 8 V728-GzV ragweed, short <0.10 kU/L class 0 Not Available [facility] ([facility] [facility]) [address] [facility], [place], [address], 10/09/2022 18:35:55 10/05/19 23 10/08/2022 ALLER GENS W/TOT AL IGE AREA 8 R177-CyR thistle, japanese <0.10 kU/L class 0 Not Available [facility] ([facility] [facility]) [address] [facility], [place], [address], 10/09/2022 18:35:55 10/05/19 23 10/08/2022 ALLER GENS W/TOT AL IGE AREA 8 T944-ZmH pigweed, common <0.10 kU/L class 0 Not Available [facility] ([facility]) [address] [facility], [place], [address], 10/09/2022 18:35:55 10/05/19 23 10/08/2022 ALLER GENS W/TOT AL IGE AREA 8 Y914-NdY rough marshelder <0.10 kU/L class 0 Not Available [facility] ([facility]) [address] [facility], [place], [address], 10/09/2022 18:35:55 10/05/19 23 10/08/2022 ALLER GENS W/TOT AL IGE AREA 8 G243-ClX mouse urine <0.10 kU/L class 0 Not Available [facility] ([facility]) [address] [facility], [place], [address], 10/09/2022 18:35:55 12/24/19 22 12/21/2021 XR, chest , 2 view No observ ation record ed. [email or web address]. [facility] (Imaging) [address] [place] [address] [facility] [place], [address], 10/01/2022 04:45:43 01/04/20 22 01/02/2022 CT, chest , w/o contr ast No observ ation record ed. [email or web address]. [facility] [address], [place], [address], 10/01/2022 04:45:43 01/22/20 22 01/16/2022 PET-C T, skull base to mid-t high scan No observ ation record ed. MIGRATION. [address], [place], [address], 10/01/2022 04:45:43 09/23/19 23 03/01/2018 compl ete PFT w/ post [facility]odil ator alba metry * No observ ation record ed. [id number] Not Available 10/01/2022 04:45:43 10/18/1909/25/2022 compl ete PFT w/ post [facility] ator alba metry * No observ ation record ed. BARCODE Not Available 2022 12:45:15 10/18/1909/25/2022 six minut e walk test* No observ ation record ed. BARCODE Not Available 2022 12:45:16 10/21/1909/25/2022 compl ete PFT w/ post [facility]odil ator alba metry * No observ ation record ed. [email or web address] Not Available 2022 09:54:56 10/21/1909/25/2022 six minut e walk test* No observ ation record ed. [email or web address] Not Available 2022 09:54:46 10/21/1909/25/2022 CT, chest , w/o contr ast No observ ation record ed. BARCODE Not Available 2022 18:35:55 Result Notes None recorded. 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 3463277536060 9107 Active 2022 Not Available [facility] 3 11:30:59 Benign essential hypertensi on 2598788 Active 2021 Not Available [facility] 3 11:30:59 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 3809948196820 00 Active 2021 Not Available [facility] 3 11:30:59 Chronic obstructiv e pulmonary disease 12939596 Active 2021 Not Available [facility] 3 11:30:59 Hyperkalem ia 05285363 Active Not Available [facility] 3 11:30:59 Serum creatinine above reference range 821422803 Active Not Available [facility] 3 11:30:59 Blood glucose outside reference range 703046761 Active 2021 Not Available [facility] 3 11:30:59 Standard chest X-ray abnormal 443498733 Active 2021 Not Available [facility] 3 11:30:59 CT of chest abnormal 1847019500697 9102 Active 2021 Not Available [facility] 3 11:30:59 Acute exacerbati on of chronic obstructiv e pulmonary disease 055205359 Active 2021 Not Available [facility] 3 11:30:59 Pneumonia 689828208 Active 2021 Not Available [facility] 3 11:30:59 Renal impairment 961404795 Active Not Available [facility] 3 11:30:59 Lung mass 448999253 Active 2021 Not Available [facility] 3 11:30:59 Physical deconditio patrick 8215385348598 2 Active 2022 Not Available [facility] 3 11:30:59 Hypertensi ve disorder 37048624 Active Not Available [facility] 3 11:30:59 Cellulitis of upper limb 921837820 Active Not Available [facility] 3 11:30:59 Respirator y crackles 56582847 Active 2022 Not Available [facility] 3 11:30:59 Cough 25879304 Active Not Available [facility] 3 11:30:59 Coronary arterioscl erosis 36820369 Active Not Available [facility] 3 11:30:59 Upper respirator y infection 02589182 Active Not Available [facility] 3 11:31:00 Hyperlipid emia 88034111 Active Not Available [facility] 3 11:31:00 Pleural effusion 09092567 Active 2022 Not Available [facility] 3 11:31:00 Dyspnea on exertion 27967878 Active 2022 Not Available [facility] 3 11:31:00 Pneumonia caused by SARS-CoV-2 9746459344809 26815 Active 2021 Not Available [facility] 3 11:31:00 Notes:Some problems listed i n Document: #[id number] could not be added to this patient's chart. Please review this document and add these problems to the patient's chart manually as needed. Problem Notes None recorded. Procedures Surgical History Date Name Laterality Status Provider Name and Address Organization Details Recorded Time Cardiovascular Procedure completed Not Available [facility] 10/01/2022 04:30:58 Prostatectomy completed Not Available [facility] 10/01/2022 04:30:58 Colonoscopy completed Not Available [facility] 10/01/2022 04:30:58 Vasectomy completed Not Available [place] [id number] 10/01/2022 04:30:58 Imaging Results None recorded. Procedure Notes None recorded. Medical Equipment None Reported. Medications Name Sig Start Date Stop Date Status Note LastModified by Organization Details LastModified Time furosemid e 40 mg tablet TAKE 1/2 TABLET DAILY active Not Available Not Available No t Available silver sulfadiaz ine 1 % topical cream apply to left arm wound AREA BY TOPICAL route 2 TIMES PER DAY active Not Available Not Available No t Available carvedilo l 6.25 mg tablet TAKE 1 TABLET BY MOUTH EVERY 12 HOURS 09/23 completed Not Available Not Available Not Available clindamyc in HCl 300 mg capsule Take 1 capsule 4 times a day by oral route for 10 days. active for arm. Not Available Not Available No t Available albuterol sulfate 2.5 mg/3 mL (0.083 %) solution for nebulizat ion USE 3 ML VIA NEBULIZE R THREE TIMES DAILY NEEDED active Not Available Not Available No t Available atorvasta tin 10 mg tablet TAKE 1 TABLET BY MOUTH EVERY DAY active Not Available Not Available No t Available azithromy giuseppe 250 mg tablet TK 2 TS PO ON DAY 1, THEN TK 1 T PO D FOR 4 DAYS 09/27 completed Not Available Not Available Not Available metoprolo l tartrate 100 mg tablet bid 09/23 completed Not Available Not Available Not Available metoprolo l succinate ER 50 mg tablet,ex tended release 24 hr Take 1 tablet every day by oral route. active Not Available Not Available No t Available hydrocodo ne 5 mg-acetam inophen 325 mg tablet TAKE 1 TABLET BY MOUTH EVERY 8 HOURS NEEDED FOR PAIN 08/27 completed Not Available Not Available Not Available prednison e 20 mg tablet 3 tabs po daily x 2 days, then 2 tabs po daily x 2 days, then 1 tab po daily x 2 days, then half tab po daily x 2 days. active Not Available Not Available No t Available Sola Low Dose Aspirin 81 mg tablet,de layed release Take 1 tablet every day by oral route. 2014 active Not Available Not Available Not Avai lable hydralazi ne 25 mg tablet active Not Available Not Available Not Available amlodipin e 5 mg tablet TAKE 1 TABLET BY MOUTH DAILY 12/12 completed Not Available Not Available Not Available ketorolac 0.5 % eye drops 02/09 completed Not Available Not Available Not Available prednisol one acetate 1 % eye drops,yaakov pension 02/09 completed Not Available Not Available Not Available furosemid e 80 mg tablet TAKE 1 TABLET BY MOUTH DAILY 08/27 completed Not Available Not Available Not Available sodium citrate-c itric acid 500 mg-334 mg/5 mL oral solution TAKE 15 ML BY MOUTH IN THE MORNING AND AT NOON AND IN THE EVENING WITH MEALS active Not Available Not Available No t Available sodium bicarbona te 650 mg tablet TAKE 2 TABLETS BY MOUTH THREE TIMES DAILY active Not Available Not Available No t Available amlodipin e 10 mg tablet TAKE 1 TABLET BY MOUTH EVERY DAY active Not Available Not Available No t Available doxycycli ne monohydra te 100 mg capsule Take 1 capsule twice a day by oral route. active Not Available Not Available No t Available cephalexi n 500 mg capsule TK 1 C PO QID 02/09 completed Not Available Not Available Not Available simvastat in 20 mg tablet Take 1 tablet every day by oral route in the evening. active Not Available Not Available No t Available calcitrio l 0.5 mcg capsule active Not Available Not Available Not Available prednison e 50 mg tablet Take 1 tablet every day by oral route for 5 days. active Not Available Not Available No t Available polymyxin B sulfate 10,000 unit-trim ethoprim 1 mg/mL eye drops 02/09 completed Not Available Not Available Not Available metoprolo l tartrate 50 mg tablet Take 2 tablets every day by oral route for 90 days. 01/19 completed Not Available Not Available Not Available nitroglyc john 0.4 mg sublingua l tablet PRN active Not Available Not Available Not Available hydrochlo rothiazid e 25 mg tablet Take 1 tablet every day by oral route for 90 days. 07/02 completed Not Available Not Available Not Available metoprolo l succinate ER 25 mg tablet,ex tended release 24 hr Take 1 tablet every day by oral route for 30 days. active Not Available Not Available No t Available cefuroxim e axetil 500 mg tablet TK 1 T PO Q 12 H active Not Available Not Available No t Available levofloxa giuseppe 500 mg tablet Take 1 tablet every 24 hours by oral route. active Not Available Not Available No t Available methylpre dnisolone 4 mg tablets in a dose pack take as directed -(may combine morning and afternoo n doses day1) active Not Available Not Available No t Available albuterol sulfate HFA 90 mcg/actua tion aerosol inhaler INHALE 2 PUFFS BY MOUTH EVERY 4 HOURS active Not Available Not Available No t Available calcitrio l 0.25 mcg capsule 09/23 completed Not Available Not Available Not Available ketorolac 0.4 % eye drops 02/09 completed Not Available Not Available Not Available metoprolo l tartrate 25 mg tablet TAKE 1 TABLET BY MOUTH TWICE DAILY 01/05 completed Not Available Not Available Not Available sodium bicarbona te 10 grain tabletta ke one tab po bid 2018 active Not Available Not Available Not Avai lable Fish Oil 4000 daily 2016 active Not Available Not Available Not Avai lable Kionex (with sorbitol) 15 gram-19.3 gram/60 mL oral suspensio n 06/18 completed Not Available Not Available Not Available Dulera 200 mcg-5 mcg/actua tion HFA aerosol inhaler Inhale 2 puffs twice a day by inhalati on route. 05/31 completed samples given. Not Available Not Available Not Available Suprep Bowel Prep Kit 17.5 gram-3.13 gram-1.6 gram oral solution active Not Available Not Available Not Available Combivent Respimat 20 mcg-100 mcg/actua tion solution for inhalatio n INHALE 1 PUFF BY MOUTH FOUR TIMES DAILY NEEDED 10/15 completed Not Available Not Available Not Available Virtussin AC 10 mg-100 mg/5 mL oral liquid Take 10 mL every 8 hours by oral route as needed. active Not Available Not Available No t Available Breo Ellipta 200 mcg-25 mcg/dose powder for inhalatio n Inhale 1 puff every day by inhalati on route. 08/27 completed Not Available Not Available Not Available Trelegy Ellipta 100 mcg-62.5 mcg-25 mcg powder for inhalatio n INHALE 1 PUFF BY MOUTH EVERY DAY DIRECTED active Not Available Not Available No t Available One Daily Mens 50 Plus(gink go) one daily 2018 active Not Available Not Available Not Avai lable Vitals Date Recorded Body mass index (BMI) Body height Oxygen saturation Oxygen saturation in Arterial blood by Pulse oximetry Heart rate Body temperature Body weight Systolic And Diastolic Provider Name and Address Organization Details Last Updated DateTime 3 37 kg/m2 187.96 cm 96 % 96 % 60 /min 97 [degF] 955802. 6 g 132/68 mm[Hg] Not Available [facility] 3 04:31:20 Date Recorded Body height Oxygen saturation Oxygen saturation in Arterial blood by Pulse oximetry Heart rate Body temperature Body weight Systolic And Diastolic Provider Name and Address Organization Details Last Updated DateTime 3 187.96 cm 96 % 96 % 74 /min 97.2 [degF] 427567. 6 g 136/70 mm[Hg] Not Available [facility] 3 04:31:20 Date Recorded Body height Body mass index (BMI) Body weight Body temperature Heart rate Oxygen saturation Oxygen saturation in Arterial blood by Pulse oximetry Systolic And Diastolic Provider Name and Address Organization Details Last Updated DateTime 3 187.96 cm 36.3 kg/m2 722965. 64 g 97.3 [degF] 78 /min 98 % 98 % 128/78 mm[Hg] ROJELIO Correa - S ID [employer] [facility] 3 15:02:03 Date Recorded Body mass index (BMI) Body height Oxygen saturation Oxygen saturation in Arterial blood by Pulse oximetry Oxygen saturation Oxygen saturation in Arterial blood by Pulse oximetry Heart rate Respiratory rate Body temperature Body weight Systolic And Diastolic Provider Name and Address Organization Details Last Updated DateTime 2 36.5 kg/m2 187.96 cm 87 % 87 % 92 % 92 % 83 /min 18 /min 97.4 [degF] 466695. 23 g 116/62 mm[Hg] Not Available [facility] 3 04:31:20 Date Recorded Body height Body mass index (BMI) Body weight Body temperature Heart rate Oxygen saturation Oxygen saturation in Arterial blood by Pulse oximetry Systolic And Diastolic Provider Name and Address Organization Details Last Updated DateTime 3 187.96 cm 32.9 kg/m2 053917. 65 g 97.7 [degF] 87 /min 94 % 94 % 138/52 mm[Hg] Kandis AL ID [employer] [facility] 3 15:09:36 Social History Question Answer Notes LastModified by myinfoQizat ion Details LastModified Time Tobacco Smoking Status Former Smoker Not Available [facility] 10/01/2022 04:05:14 Do You Have An Advance Directive? No [id number] Information not available 10/01/2022 Are You Blind Or Do You Have Difficulty Seeing? No MIGRATION.208243 7189 Information not available 10/01/2022 What Is Your Level Of Caffeine Consumption? Moderate MIGRATION.141871 9076 Information not available 10/01/2022 How Much Tobacco Do You Chew? None MIGRATION.[id number] 4922 Information not available 10/01/2022 In The 14 Days Before Symptom Onset, Have You Had Close Contact With A Laboratory-confirm ed COVID-19 While That Case Was Ill? No MIGRATION.843372 0760 Information not available 10/01/2022 In The 14 Days Before Symptom Onset, Have You Had Close Contact With A Person Who Is Under Investigation For COVID-19 While That Person Was Ill? No MIGRATION.384726 6879 Information not available 10/01/2022 Are You Deaf Or Do You Have Serious Difficulty Hearing? No MIGRATION.061811 3678 Information not available 10/01/2022 What Type Of Diet Are You Following? REGULAR MIGRATION.762147 5425 Information not available 10/01/2022 Which Illicit Or Recreational Drugs Have You Used? None MIGRATION.846511 9575 Information not available 10/01/2022 Have There Been Any Changes To Your Family Or Social Situation? No MIGRATION.821353 1631 Information not available 10/01/2022 When Did You Quit Smoking? 16+yearssince lastcigarette MIGRATION.797264 4391 Information not available 10/01/2022 Do You Use Insect Repellent Routinely? No MIGRATION.038614 0374 Information not available 10/01/2022 Do You Have A Medical Power Of Cross Cut Sawyer? No MIGRATION.678981 6154 Information not available 10/01/2022 What Was The Date Of Your Most Recent Tobacco Screening? 08/27/2021 MIGRATION.971451 4821 Information not available 10/01/2022 How Many Children Do You Have? 2 MIGRATION.479801 0736 Information not available 10/01/2022 What Is Your Current Pack Years? 30ormorepacky ears MIGRATION.618861 0902 Information not available 10/01/2022 What Is Your Relationship Status? MIGRATION.741352 3568 Information not available 10/01/2022 Do You Use Your Seat Belt Or Car Seat Routinely? Yes MIGRATION.360584 4841 Information not available 10/01/2022 Do You Have Smoke And Carbon Monoxide Detectors In Your Home? Yes MIGRATION.420309 0319 Information not available 10/01/2022 At What Age Did You Start Smoking Tobacco? 21 MIGRATION.025929 0243 Information not available 10/01/2022 Do You Use Sunscreen Routinely? No MIGRATION.600873 0568 Information not available 10/01/2022 Have You Recently Traveled Abroad? No MIGRATION.755751 4666 Information not available 10/01/2022 Do You Have Difficulty Walking Or Climbing Stairs? No MIGRATION.019348 3451 Information not available 10/01/2022 Do You Have Any Dietary Restrictions? No MIGRATION.884961 5085 Information not available 10/01/2022 Sex: Unknown Functional Status Question Answer Note LastModified by Organizat ion Details LastModified Time Do you use any illicit or recreational drugs? No MIGRATION.353125 6535 Information not available 10/01/2022 Do you or have you ever used any other forms of tobacco or nicotine? No MIGRATION.668994 9376 Information not available 10/01/2022 What is your level of alcohol consumption? Moderate Beer MIGRATION.090175 4460 Information not available 10/01/2022 Do you or have you ever used smokeless tobacco? Never used smokeless tobacco MIGRATION.530867 8113 Information not available 10/01/2022 Do you have transportation difficulties? No MIGRATION.282674 6528 Information not available 10/01/2022 Are you able to walk? YESWOREST MIGRATION.147209 3112 Information not available 10/01/2022 Do you have difficulty doing errands alone? No MIGRATION.341594 3896 Information not available 10/01/2022 Are you able to care for yourself? Yes MIGRATION.301478 6933 Information not available 10/01/2022 What is your occupation? [employer] MIGRATION.790108 2021 Information not available 10/01/2022 Do you have difficulty dressing or bathing? No MIGRATION.339275 0895 Information not available 10/01/2022 Do you or have you ever used e-cigarettes or vape? Never used electronic cigarettes MIGRATION.365476 2924 Information not available 10/01/2022 What is your exercise level? Occasional MIGRATION.335488 2027 Information not available 10/01/2022 Mental Status Question Answer Note LastModified by Organizat ion Details LastModified Time Do you have difficulty concentrating, remembering or making decisions? No MIGRATION.[id number] 6 Information not available 10/01/2022 Family History Relationship Description Onset Age of this Age Resolved Age Notes LastModified by Organization Details LastModified Time Father Malignant neoplastic disease MIGRATION.[id number] Not available 10/01/2022 04:30:59 Father Hypertensive disorder MIGRATION.[id number] Not available 10/01/2022 04:30:59 Father Heart disease MIGRATION.[id number] Not available 10/01/2022 04:30:59 Medical History Condition Response Impotence Y HEART DISEASE/HEART PROBLEMS Y KIDNEY DISEASE Y PROSTATE Y HYPERTENSION Y HIGH CHOLESTEROL / HYPERLIPIDEMIA Y EYE PROBLEMS Y CANCER: SPECIFY Y URINARY/BLADDER/KIDNEY PROBLEMS Y CORONARY ARTERY DISEASE (CAD) Y GOUT Y BACK / NECK PROBLEMS Y Immunizations Vaccine Type Date Status Note Provider Nam e and Address Organization Details Recorded Time Hep A, unspecified formulation 6 completed Not Available [facility] 02/09/2023 16:24:34 COVID-19, mRNA, LNP-S, PF, 30 mcg/0.3 mL dose 2 completed Not Available [facility] 02/09/2023 16:24:34 influenza, unspecified formulation 2 completed Not Available [facility] 02/09/2023 16:24:34 Influenza, high-dose, quadrivalent, PF 1 completed Not Available [facility] 02/09/2023 16:24:34 Influenza, high-dose, quadrivalent, PF 0 completed Not Available [facility] 02/09/2023 16:24:34 pneumococcal polysaccharide PPV23 9 completed Not Available [facility] 02/09/2023 16:24:34 Influenza, high-dose, trivalent, PF 9 completed Not Available [facility] 02/09/2023 16:24:34 Influenza, high-dose, trivalent, PF 8 completed Not Available [facility] 02/09/2023 16:24:34 Pneumococcal conjugate PCV 13 8 completed Not Available [facility] 02/09/2023 16:24:34 Influenza, high-dose, trivalent, PF 7 completed Not Available [facility] 02/09/2023 16:24:34 Past Encounters Encounter ID Performer Location Encounter Start Date Encounter Closed Date Diagnosis/Indication Diagnosis SNOMED-CT Code Diagnosis ICD10 Code Diagnosis Note [id number] LOLY Proctor [facility] Internal Med [place] [address] [place] [address] 12/06/2020 00:00:00 12/27/2020 09:22:06 [id number] LOLY Proctor [facility] [address] [place] [address] 06/06/2021 00:00:00 07/01/2021 00:24:37 [id number] LOLY Proctor [facility] [place] [address] [place] [address] 07/22/2021 00:00:00 08/02/2021 11:14:18 [id number] Winston Butcher MD [facility] Ortho [place] [address] [place] [address] 08/27/2021 00:00:00 08/27/2021 15:33:54 [id number] Orlando Lara MD [facility] Internal Med [place] [address] [place] [address] 12/12/2021 00:00:00 12/24/2021 17:04:46 [id number] Margaux Lizarraga [facility] Pulmonolo gy [place] [address] [place] [address] 09/09/2022 00:00:00 09/09/2022 20:13:55 [id number] LOLY Proctor [facility] Internal Med [place] [address] [place] [address] 09/23/2022 00:00:00 09/28/2022 12:25:28 [id number] Margaux Lizarraga [facility] Pulmonolo gy [place] [address] [place] [address] 10/15/2022 14:52:08 10/16/2022 08:46:21 Asthma-chronic obstructive pulmonary disease overlap syndrome 6730374140 6702858 J44.9 CAT 5 todayPFT completed 2022 with ratio 49 and FEV1 79TLC 114DLCO adjusted 59Six minute walk testing normalCont inue Trelegy Ellipta 100RX for albuterol todayDiscu ssed indication s for use and instructed on techniqueR TC in 6 months, PRN for concerns Dyspnea on exertion 6084 5006 R06.09 RAST with mild reaction to cat and dogBNP elevated - sees cardiology Eosinophil s, alpha1 and Quantifero n GOLD normalIGG subclass 2 slightly low, all others normalSix minute walk testing normal Pleural effusion 4613050 [address] chest 09/25/22 Nicotine dependence 5629 4008 Z87.891 Smoking cessation counseling and techniques reviewed at length. L iterature reviewed.A void triggers, support groups.Dis traction techniques Greater than 3 but less than 10 minutes spent discussing cessation. Declines NRT.Discus sed Rx options if needed in the future. Abnormal f indings on diagnostic imaging of lung 128486377 R91.8 Faint TIB to RLL, unchangedL ikely some mucous pluggingAs ymptomatic [id number] Margaux Zia, [facility] Pulmonolo gy [place] [address] [place] [address] 04/17/2023 14:52:42 04/17/2023 15:29:42 Asthma-chronic obstructive pulmonary disease overlap syndrome [id number] 1481659 J44.9 CAT 7 todayPFT completed 09/2022 with ratio 49 and FEV1 79TLC 114DLCO adjusted 59Six minute walk testing normalCont inue Trelegy Ellipta 100 one puff dailySampl es to patient todayRX for albuterol todayDiscu ssed indication s for use and instructed on techniqueA dvised vaccines this fallHe should follow up in 6 months, PRN for concerns Dyspnea on exertion 6084 5006 R06.09 RAST with mild reaction to cat and dogBNP elevated 184 in October - sees cardiology Eosinophil s, alpha1 and Quantifero n GOLD normalIGG subclass 2 slightly low, all others normalSix minute walk testing normalWeig ht lossAdvise d [place], he will consider Pleural effusion 2280361 [address] chest 09/25/22 Abnormal f indings on diagnostic imaging of lung 038715237 R91.8 Faint TIB to RLL, unchangedL ikely some mucous pluggingAs ymptomatic Repeat to ensure stability or resolution in September 2023 Nicotine dependence 5629 4008 Z87.891 Smoking cessation counseling and techniques reviewed at length. L iterature reviewed.A void triggers, support groups.Dis traction techniques Greater than 3 but less than 10 minutes spent discussing cessation. Declines NRT.Discus sed Rx options if needed in the future. Health Concerns Section Related Observation LastModified by Organization Detai ls LastModified Time None Recorded Concern Status LastModified by Organization Details LastModified Time None Recorded Advance Directives Directive N: Payers Encounter Date Sequence Insurance Name Policy Number Policy Velasco Covered Member ID Velasco Member ID Guarantor Name 10/15/2022 1 [facility] (MEDICARE REPLACEMENT/A DVANTAGE - HMO) [id number] Lamin Ann [id number] Lamin Ann 04/17/2023 1 [facility] (MEDICARE REPLACEMENT/A DVANTAGE - HMO) [id number] Lamin Ann [id number] Lamin Ann Notes Date Note Type Note Provider Name and Address Organization Details Recorded Time 12/12/2021 text/html CKD (chronic kid tanya disease)Reported bypatient.Notes:pt is stage 5 CKD and follows with nephrology routinely. Not on dialysis at this time.COPDReported bypatient.Notes:pt was hospitalized for pneumonia and copd after covid. this is first appt since that discharge a few months ago. He missed last scheduled appt.HyperlipidemiaR eported bypatient.Duration:c hronic Control:usually well controlled; improving; at goal Compliance:compliant ; compliant with diet;does not exercise Complications:no coronary artery disease; no peripheral artery disease; no cardiovascular disease Risk Factors:hypertension HypertensionReported bypatient.Quality:ti ngling; r hand, three fingers, started 3 weeks ago Duration:has noted for years Onset/Timing:better Alleviating Factors:medication Self Care:not under emotional stress Associated Symptoms:no fatigue; no palpitations; no decline in exercise capacity; no snoring;shortness of breath Not Available [employer] 12/24/2021 17:04:46 09/23/2022 text/html CKD (chronic kid tanya disease)Reported bypatient.Notes:pt is stage 5 CKD and follows with nephrology routinely. Not on dialysis at this time.COPDReported bypatient.Notes:pt is on new inhaler regimen (trelegy) and seeing pulmonary now . stable .no acute c/o.HyperlipidemiaRe ported bypatient.Duration:c hronic Control:usually well controlled; improving; at goal Compliance:compliant ; compliant with diet;does not exercise Complications:no coronary artery disease; no peripheral artery disease; no cardiovascular disease Risk Factors:hypertension HypertensionReported bypatient.Onset/Noe ng:better Self Care:not under emotional stress Associated Symptoms:no shortness of breath; no fatigue; no palpitations; no decline in exercise capacity; no snoring Not Available [employer] 09/28/2022 12:25:28 10/15/2022 text/html Mr Marissa islas nts today to follow up on COPD, dyspnea, cough, abnormal imaging and nicotine dependence.He has completed his testing.Reports significant improvement from Trelegy Ellipta 100, this is covered by his insurancePreviously altered routines to avoid dyspnea, he thinks his tolerance may be slightly improvedHe can dress and bathe without dyspnea.Cough is rare, non-productive.Wheez ing is resolved with TrelegyDoes not wake at night R/T respiratory symptoms,Does not have albuterol inhaler, would like one sent todayDenies GERDEndorses sinus drainage felt in the back of his throat frequently. RANDY Calderón [address], [place], [address], [employer] 10/15/2022 16:07:26 04/17/2023 text/html Mr Marissa islas nts today to follow up on COPD, dyspnea, cough, abnormal imaging and nicotine dependence.Continues to maintain that his activity levels are good and his dyspnea is minimalReports significant improvement from Trelegy Ellipta 100, this is covered by his insurance but [facility].He can dress and bathe without dyspnea.Cough is rare, non-productive.Wheez ing is resolved with TrelegyDoes not wake at night R/T respiratory symptoms,Very rare albuterol useDenies GERDEndorses sinus drainage felt in the back of his throat frequently.Denies chest pain, hemoptysis, unintentional weight loss, enlarged lymph nodes.No respiratory infection since last OV RANDY Calderón [address], [place], [address], [employer] 04/19/2023 21:05:10
--- OUTSIDE RECORDS SUMMARY | 2024-12-23 15:51 | XMS_ITS | Encounter Summary ---
Author Organization [facility] Address [address] [place] [address] Phone Care Team Providers Care Supervisor Riprap Placing Name Role Phone Orlando Lara MD Primary Care Provider [phone] Reason for Visit * Reason Comments Med Refill Encounter Details Date Type Department Care Team (Late st Contact Info) Description 04/08/2020 Refill [facility] [address], [address] [place], [place] [id number] Uday Jones MD [address] [address] Social History Tobacco Use Types [...] Description 01/03/2025 1:40 PM CDT Office Visit [facility] [address], [address] [place], [place] [id number] Rosemary Hugo NP [address] [address] documented as of this encounter Visit Diagnoses Not on filedocumented in this encounter Care Teams Supervisor Riprap Placing Relationship Specialty Start Date End Date Orlando Lara MD 2044 [facility] 15 [place] [phone] PCP - General 09/07/24 documented as of this encounter
--- OUTSIDE RECORDS SUMMARY | 2024-12-23 15:51 | XMS_ITS | Encounter Summary ---
Author Organization [facility] Address [address] [place] [address] Phone Care Team Providers Care Reiki Practitioner Name Role Phone Orlando Lara MD Primary Care Provider [phone] Reason for Visit * Reason Comments Med Refill Encounter Details Date Type Department Care Team (Late st Contact Info) Description 05/14/2021 Refill [facility] [address], [address] [place] [address] Uday Jones MD [address] [address] Social History Tobacco Use Types [...] Description 01/03/2025 1:40 PM CDT Office Visit [facility] [address], [address] [place] [address] Rosemary Hugo NP [address] [address] documented as of this encounter Visit Diagnoses Not on filedocumented in this encounter Care Teams Reiki Practitioner Relationship Specialty Start Date End Date Orlando Lara MD 2044 [facility] 15 [place] [phone] PCP - General 09/07/24 documented as of this encounter
--- OUTSIDE RECORDS SUMMARY | 2024-12-23 15:51 | XMS_ITS | Encounter Summary ---
Author Organization [facility] Address [address] [place] [address] Phone Care Team Providers Care Gis Developer Name Role Phone Orlando Lara MD Primary Care Provider [phone] Reason for Visit * Reason Comments Med Refill Encounter Details Date Type Department Care Team (Late st Contact Info) Description 12/25/2019 Refill [facility] [address], [address] [place] [address] Uday Jones MD [address] [address] Social History Tobacco Use Types [...] Description 01/03/2025 1:40 PM CDT Office Visit [facility] [address], [address] [place], [place] [phone] Rosemary Hugo NP [address] [address] documented as of this encounter Visit Diagnoses Not on filedocumented in this encounter Care Teams Gis Developer Relationship Specialty Start Date End Date Orlando Lara MD 2044 [facility] 15 [place] [phone] PCP - General 09/07/24 documented as of this encounter
--- OUTSIDE RECORDS SUMMARY | 2024-12-23 15:51 | XMS_ITS | Encounter Summary ---
Author Organization [facility] Address [address] [place] [address] Phone Care Team Providers Care Cloth Finishing Range Operator Chief Name Role Phone Orlando Lara MD Primary Care Provider [phone] Reason for Visit * Reason Comments Med Refill Encounter Details Date Type Department Care Team (Late st Contact Info) Description 10/31/2019 Refill [facility] [address], [address] [place], [place] [id number] Uday Jones MD [address] [address] Social History Tobacco Use Types [...] Description 01/03/2025 1:40 PM CDT Office Visit [facility] [address], [address] [place], [place] [phone] Rosemary Hugo NP [address] [address] documented as of this encounter Visit Diagnoses Not on filedocumented in this encounter Care Teams Cloth Finishing Range Operator Chief Relationship Specialty Start Date End Date Orlando Lara MD 2044 [facility] 15 [place] [phone] PCP - General 09/07/24 documented as of this encounter
--- OUTSIDE RECORDS SUMMARY | 2024-12-23 15:51 | XMS_ITS | Encounter Summary ---
Author Organization [facility] Address [address] [place] [address] Phone Care Team Providers Care Datawarehouse Developer Name Role Phone Orlando Lara MD Primary Care Provider [phone] Reason for Visit * Reason Comments Med Refill Encounter Details Date Type Department Care Team (Late st Contact Info) Description 08/19/2019 Refill [facility] [address], [address] [place], [place] [phone] Uday Jones MD [address] [address] Social History Tobacco Use Types [...] Description 01/03/2025 1:40 PM CDT Office Visit [facility] [address], [address] [place], [place] [id number] Rosemary Hugo NP [address] [address] documented as of this encounter Visit Diagnoses Not on filedocumented in this encounter Care Teams Datawarehouse Developer Relationship Specialty Start Date End Date Orlando Lara MD [address] [facility] 15 [place] [phone] PCP - General 09/07/24 documented as of this encounter
--- OUTSIDE RECORDS SUMMARY | 2024-12-23 15:51 | XMS_ITS | Encounter Summary ---
Author Organization [facility] Address [address] [place] [address] Phone Care Team Providers Care Alcoholism Worker Name Role Phone Orlando Lara MD Primary Care Provider Reason for Visit * Reason Comments Med Refill Encounter Details Date Type Department Care Team (Late st Contact Info) Description 11/19/2019 Refill [facility] [address], [address] [place], [place] [phone] Uday Jones MD [address] [address] Social History Tobacco Use Types [...] Description 01/03/2025 1:40 PM CDT Office Visit [facility] [address], [address] [place], [place] [phone] Rosemary Hugo NP [address] [address] documented as of this encounter Visit Diagnoses Not on filedocumented in this encounter Care Teams Alcoholism Worker Relationship Specialty Start Date End Date Orlando Lara MD 2044 [facility] 15 [place] [phone] PCP - General 09/07/24 documented as of this encounter
--- OUTSIDE RECORDS SUMMARY | 2024-12-23 15:51 | XMS_ITS | Encounter Summary ---
Author Organization [facility] Address [address] [place] [address] Phone Care Team Providers Care Supervisor Coating Name Role Phone Orlando Lara MD Primary Care Provider [phone] Reason for Visit * Reason Comments Med Refill Encounter Details Date Type Department Care Team (Late st Contact Info) Description 11/11/2021 Refill [facility] [address], [address] [place] [address] Uday Jones MD [address] [address] Social History Tobacco Use Types [...] Description 01/03/2025 1:40 PM CDT Office Visit [facility] [address], [address] [place] [address] Rosemary Hugo NP [address] [address] documented as of this encounter Visit Diagnoses Not on filedocumented in this encounter Care Teams Supervisor Coating Relationship Specialty Start Date End Date Orlando Lara MD 2044 [facility] 15 [place] [phone] PCP - General 09/07/24 documented as of this encounter
--- OUTSIDE RECORDS SUMMARY | 2024-12-23 15:51 | XMS_ITS | Data Portability ---
Author Organization [facility] Address [address] [place] [address] Care Team Providers Care Camp Manager Name Role Phone ALKA BOSS Primary Care Provider Unavailab le Assessment No assessment recorded. Plan of Treatment Reminders Order Date Submit Date Provider Last Modified By Organization Details Last Modified Time Details Appointments None recorded. Lab CBC w/ auto diff 2023 024 [email or web address] [facility], [address], [place], [address], 4 14:23:01 hepatic function panel, serum 2023 024 [email or web address] [facility], [address], [place], [address], 4 14:23:01 TSH + free T4, serum 2023 024 [email or web address] [facility], [address], [place], [address], 4 14:23:01 vitamin B12, serum 2023 024 [email or web address] [facility], [address], [place], [address], 4 14:23:01 lipid panel, serum 2023 024 apaytonma [facility], [address], [place], [address], 4 14:23:01 BMP, serum or plasma 2023 024 [facility], [address], [place], [address], 4 14:23:01 Referral None recorded. Procedures None recorded. Surgeries None recorded. Imaging US, duplex, carotid artery 2023 [facility], [address], [place], [address], 4 10:42:00 Medication Orders prednisone 50 mg tablet [address] [facility] #69688, [address], [place], [id number], 4 17:01:44 cyclobenza hannah 10 mg tablet [address] [facility] #27090, [address] [facility], [place], [place], [id number], 4 17:01:45 albuterol sulfate HFA 90 mcg/actuat ion aerosol inhaler [address] [facility] #43102, [address], [place], [id number], 4 17:02:06 Trelegy Ellipta 100 mcg-62.5 mcg-25 mcg powder for inhalation [address] [facility] #27040, [address], [place], [id number], 4 11:50:04 Combivent Respimat 20 mcg-100 mcg/actuat ion solution for inhalation [address] [facility] #[id number], [address], [place], [id number], 11:50:05 Patient TargetsNo targets recorded. Patient Instructions Encounter Date Encounter Id Patient Instructions Last Modified By Organization Details Last Modified Time 12/08/2023 [id number] A healthy lifestyle: care instructions [email or web address] Not available 12/28/2023 00:25:14 Reason for Referral None Reported. Results Created Date Observation Date Name Description Value Unit Range Abnormal Flag Note LastModifiedBy Organization Detail LastModifiedTime 12/31/19 24 01/01/2024 TSH+F REE T4 TSH 1.090 uIU/m L 0.450- 4.500 Not Available [facility] ([facility]) [address] [place], [address], 01/01/2024 13:12:06 12/31/19 24 01/01/2024 TSH+F REE T4 T4,free(dire ct) 1.43 NG/dL 0.82-1 .77 Not Available [facility] ([facility]) [address] [place], [address], 01/01/2024 13:12:06 12/31/19 24 01/01/2024 LIPID PANEL cholesterol, total 160 mg/dL 100-19 9 Not Available [facility] ([facility]) [address] [place], [address], 01/01/2024 13:12:07 12/31/19 24 01/01/2024 LIPID PANEL triglyceride s 135 mg/dL 0-149 Not Available [facility] ([facility]) [address] [place], [address], 01/01/2024 13:12:07 12/31/19 24 01/01/2024 LIPID PANEL HDL cholesterol 58 mg/dL >39 Not Available [facility]) [address] [place], [address], 01/01/2024 13:12:07 12/31/19 24 01/01/2024 LIPID PANEL VLDL cholesterol chadwick 23 mg/dL 5-40 Not Available [facility] ([facility]) [address] [facility], [place], [address], 01/01/2024 13:12:07 12/31/19 24 01/01/2024 LIPID PANEL LDL chol calc ([facility]) 79 mg/dL 0-99 Not Available [facility]) [address] [facility], [place], [address], 01/01/2024 13:12:07 12/31/19 24 01/01/2024 HEPAT IC FUNCT ION PANEL (7) protein, total 6.6 g/dL 6.0-8. 5 Not Available [facility] ([facility]) [address] [facility] [place], [address], 01/01/2024 13:12:07 12/31/19 24 01/01/2024 HEPAT IC FUNCT ION PANEL (7) albumin 4.4 g/dL 3.8-4. 8 Not Available [facility] ([facility]) [address] [facility], [place], [address], 01/01/2024 13:12:07 12/31/19 24 01/01/2024 HEPAT IC FUNCT ION PANEL (7) bilirubin, total 0.6 mg/dL 0.0-1. 2 Not Available [facility] ([facility]) [address] [facility] [place], [address], 01/01/2024 13:12:07 12/31/19 24 01/01/2024 HEPAT IC FUNCT ION PANEL (7) bilirubin, direct 0.18 mg/dL 0.00-0 .40 Not Available [facility] ([facility]) [address] [facility] [place], [address], 01/01/2024 13:12:07 12/31/19 24 01/01/2024 HEPAT IC FUNCT ION PANEL (7) alkaline phosphatase 73 IU/L 44-121 Not Available [facility]) [address] [facility] [place], [address], 01/01/2024 13:12:07 12/31/19 24 01/01/2024 HEPAT IC FUNCT ION PANEL (7) AST (SGOT) 15 IU/L 0-40 Not Available [facility] ([facility]) [address] [facility] [place], [address], 01/01/2024 13:12:07 12/31/19 24 01/01/2024 HEPAT IC FUNCT ION PANEL (7) ALT (SGPT) 11 IU/L 0-44 Not Available [facility] ([facility]) [address] [facility] [place], [address], 01/01/2024 13:12:07 12/31/19 24 01/01/2024 BASIC METAB OLIC PANEL (8) glucose 114 mg/dL 70-99 above high normal Not Available [facility] ([facility]) [address] [facility] [place], [address], 01/01/2024 13:12:08 12/31/19 24 01/01/2024 BASIC METAB OLIC PANEL (8) BUN 60 mg/dL 8-27 above high normal Not Available [facility] ([facility]) [address] [facility] [place], [address], 01/01/2024 13:12:08 12/31/19 24 01/01/2024 BASIC METAB OLIC PANEL (8) creatinine 4.22 mg/dL 0.76-1 .27 above high normal Not Available [facility] ([facility]) [address] [facility] [place], [address], 01/01/2024 13:12:08 12/31/19 24 01/01/2024 BASIC METAB OLIC PANEL (8) eGFR 14 mL/mi n/1.7 3 >59 below low normal Not Available [facility] ([facility]) [address] [facility] [place], [address], 01/01/2024 13:12:08 12/31/19 24 01/01/2024 BASIC METAB OLIC PANEL (8) BUN/creatini ne ratio 14 10-24 Not Available [facility] ([facility]) [address] [facility] [place], [address], 01/01/2024 13:12:08 12/31/19 24 01/01/2024 BASIC METAB OLIC PANEL (8) sodium 141 mmol/ L 134-14 4 Not Available [facility] ([facility]) [address] [facility] [place], [address], 01/01/2024 13:12:08 12/31/19 24 01/01/2024 BASIC METAB OLIC PANEL (8) potassium 4.8 mmol/ L 3.5-5. 2 Not Available [facility] ([facility]) [address] [facility] [place], [address], 01/01/2024 13:12:08 12/31/19 24 01/01/2024 BASIC METAB OLIC PANEL (8) chloride 104 mmol/ L 96-106 Not Available [facility] ([facility]) [address] [facility] [place], [address], 01/01/2024 13:12:08 12/31/19 24 01/01/2024 BASIC METAB OLIC PANEL (8) carbon dioxide, total 22 mmol/ L 20-29 Not Available [facility] ([facility]) [address] [facility] [place], [address], 01/01/2024 13:12:08 12/31/19 24 01/01/2024 BASIC METAB OLIC PANEL (8) calcium 9.6 mg/dL 8.6-10 .2 Not Available [facility] ([facility]) [address] [facility] [place], [address], 01/01/2024 13:12:08 12/31/19 24 01/01/2024 VITAM IN B12 vitamin B12 646 pg/mL 232-12 45 Not Available [facility] ([facility]) [address] [facility], [place], [address], 01/01/2024 13:12:09 12/31/19 24 01/01/2024 CBC WITH DIFFE RENTI AL/PL ATELE T WBC 8.9 x10e3 /uL 3.4-10 .8 Not Available [facility] ([facility]) [address] [facility], [place], [address], 01/01/2024 13:12:09 12/31/19 24 01/01/2024 CBC WITH DIFFE RENTI AL/PL ATELE T RBC 4.27 x10e6 /uL 4.14-5 .80 Not Available [facility] ([facility]) [address] [facility], [place], [address], 01/01/2024 13:12:09 12/31/19 24 01/01/2024 CBC WITH DIFFE RENTI AL/PL ATELE T hemoglobin 12.9 g/dL 13.0-1 7.7 below low normal Not Available [facility] ([facility]) [address] [facility], [place], [address], 01/01/2024 13:12:09 12/31/19 24 01/01/2024 CBC WITH DIFFE RENTI AL/PL ATELE T hematocrit 39.2 % 37.5-5 1.0 Not Available [facility] ([facility]) [address] [facility], [place], [address], 01/01/2024 13:12:09 12/31/19 24 01/01/2024 CBC WITH DIFFE RENTI AL/PL ATELE T MCV 92 fL 79-97 Not Available [facility] ([facility]) [address] [facility], [place], [address], 01/01/2024 13:12:09 12/31/19 24 01/01/2024 CBC WITH DIFFE RENTI AL/PL ATELE T MCH 30.2 pg 26.6-3 3.0 Not Available [facility] ([facility]) [address], [place], [address], 01/01/2024 13:12:09 12/31/19 24 01/01/2024 CBC WITH DIFFE RENTI AL/PL ATELE T MCHC 32.9 g/dL 31.5-3 5.7 Not Available [facility] ([facility]) [address] [facility], [place], [address], 01/01/2024 13:12:09 12/31/19 24 01/01/2024 CBC WITH DIFFE RENTI AL/PL ATELE T RDW 14.3 % 11.6-1 5.4 Not Available [facility] ([facility]) [address] [facility], [place], [address], 01/01/2024 13:12:09 12/31/19 24 01/01/2024 CBC WITH DIFFE RENTI AL/PL ATELE T platelets 308 x10e3 /uL 150-45 0 Not Available [facility] ([facility]) [address] [facility], [place], [address], 01/01/2024 13:12:09 12/31/19 24 01/01/2024 CBC WITH DIFFE RENTI AL/PL ATELE T neutrophils 73 % notest ab. Not Available [facility] ([facility]) [address] [facility], [place], [address], 01/01/2024 13:12:09 12/31/19 24 01/01/2024 CBC WITH DIFFE RENTI AL/PL ATELE T lymphs 15 % notest ab. Not Available [facility] ([facility]) [address] [facility], [place], [address], 01/01/2024 13:12:09 12/31/19 24 01/01/2024 CBC WITH DIFFE RENTI AL/PL ATELE T monocytes 8 % notest ab. Not Available [facility] ([facility]) [address] [facility], [place], [address], 01/01/2024 13:12:09 12/31/19 24 01/01/2024 CBC WITH DIFFE RENTI AL/PL ATELE T eos 3 % notest ab. Not Available [facility] ([facility]) [address] [facility], [place], [address], 01/01/2024 13:12:09 12/31/19 24 01/01/2024 CBC WITH DIFFE RENTI AL/PL ATELE T basos 1 % notest ab. Not Available [facility] ([facility]) [address] [place], [address], 01/01/2024 13:12:09 12/31/19 24 01/01/2024 CBC WITH DIFFE RENTI AL/PL ATELE T neutrophils (absolute) 6.5 x10e3 /uL 1.4-7. 0 Not Available [facility] ([facility]) [address] [place], [address], 01/01/2024 13:12:09 12/31/19 24 01/01/2024 CBC WITH DIFFE RENTI AL/PL ATELE T lymphs (absolute) 1.4 x10e3 /uL 0.7-3. 1 Not Available [facility] ([facility]) [address] [place], [address], 01/01/2024 13:12:09 12/31/19 24 01/01/2024 CBC WITH DIFFE RENTI AL/PL ATELE T monocytes(ab solute) 0.7 x10e3 /uL 0.1-0. 9 Not Available [facility] ([facility]) [address] [place], [address], 01/01/2024 13:12:09 12/31/19 24 01/01/2024 CBC WITH DIFFE RENTI AL/PL ATELE T eos (absolute) 0.3 x10e3 /uL 0.0-0. 4 Not Available [facility] ([facility]) [address] [place], [address], 01/01/2024 13:12:09 12/31/19 24 01/01/2024 CBC WITH DIFFE RENTI AL/PL ATELE T baso (absolute) 0.1 x10e3 /uL 0.0-0. 2 Not Available [facility] ([facility]) [address] [facility], [place], [address], 01/01/2024 13:12:09 12/31/19 24 01/01/2024 CBC WITH DIFFE RENTI AL/PL ATELE T immature granulocytes 0 % notest ab. Not Available [facility] ([facility]) [address] [facility], [place], [address], 01/01/2024 13:12:09 12/31/19 24 01/01/2024 CBC WITH DIFFE RENTI AL/PL ATELE T immature grans (abs) 0.0 x10e3 /uL 0.0-0. 1 Not Available [facility] ([facility]) [address] [facility], [place], [address], 01/01/2024 13:12:09 01/19/20 24 01/08/2024 , andres mcnair id arter y No observ ation record ed. [email or web address] [place] [id number] [facility] [address], [place], [address], 01/28/2024 17:19:49 Result Notes None recorded. Problems Name Problem SNOMED Code Status Onset Date Resolution Date Notes Provider Name and Address Organization Details Recorded Time History of radical prostatecto 3983836477186 09 Active 2023 LOLY Proctor Attn: Shailesh khoury,[address] [facility], [place], [address], [facility] 00:23:37 Chronic kidney disease stage 4 644077131 Active 2023 LOLY Proctor Attn: Shailesh khoury,[address] [place], [address], [place] [facility] 4 00:24:02 Hyperlipide sean 42179018 Active 2023 Ana M Rene [place], [place] [facility] 4 15:45:16 Benign essential hypertensio n 2459511 Active 2023 [place] R[place] [facility] 4 15:45:09 Severe chronic obstructive pulmonary disease 041856075 Active 2023 LOLY Proctor Attn: Accountin g,[address] [facility], [place], [address], [place] [facility] 4 00:24:32 Obesity 556662103 Active 2023 LOLY Proctor Attn: Accountin g,[address] [facility], [place], [address], [place] [facility] 4 00:25:15 Body mass index 30+ - obesity 455502778 Active 2023 LOLY Proctor Attn: Accountin g,[address] [facility], [place], [address], [place] [facility] 4 00:25:16 Chronic obstructive pulmonary disease 98071528 Active 2023 LOLY Proctor Attn: Accountin g,[address] [facility], [place], [address], [place] [facility] 4 16:16:37 Low back strain 263036371 Active 2023 LOLY Proctor Attn: Accountin g,[address] [facility], [place], [address], [place] [facility] 4 16:16:38 Problem Notes None recorded. Procedures Surgical History None recorded. Imaging Results Imaging Date Name Status LastModified by Organiz ation Details LastModified Time 01/08/2024 US, duplex, carotid artery completed [email or web address] [facility] [address], [place], [address], 01/28/2024 17:19:49 Procedure Notes None recorded. Medical Equipment None Reported. Allergies No known drug allergies Medications Name Sig Start Date Stop Date Status Note LastModified by Organization Details LastModified Time cyclobenzap rine 10 mg tablet TAKE 1 TABLET BY MOUTH THREE TIMES DAILY NEEDED FOR LOW BACK STRAIN active Not Available Not Available No t Available furosemide 40 mg tablet TAKE 1/2 TABLET DAILY active Not Available Not Available No t Available atorvastati n 10 mg tablet active Not Available Not Available Not Available azithromyci n 250 mg tablet 01/20 completed Not Available Not Available Not Available hydrocodone 5 mg-acetamin ophen 325 mg tablet TAKE 1 TABLET BY MOUTH EVERY 12 HOURS NEEDED FOR PAIN active Not Available Not Available No t Available hydralazine 25 mg tablet TAKE 1 TABLET BY MOUTH TWICE DAILY 01/20 completed Not Available Not Available Not Available allopurinol 100 mg tablet active Not Available Not Available Not Available sodium citrate-cit cinthia acid 500 mg-334 mg/5 mL oral solution TAKE 15 ML BY MOUTH IN THE MORNING AND AT NOON AND IN THE EVENING WITH MEALS active Not Available Not Available No t Available sodium bicarbonate 650 mg tablet TAKE 2 TABLETS BY MOUTH THREE TIMES DAILY active Not Available Not Available No t Available amlodipine 10 mg tablet active Not Available Not Available Not Available calcitriol 0.5 mcg capsule active Not Available Not Available Not Available prednisone 50 mg tablet TAKE 1 TABLET BY MOUTH EVERY DAY FOR 5 DAYS active Not Available Not Available No t Available nitroglycer in 0.4 mg sublingual tablet PRN active Not Available Not Available Not Available methylpredn isolone 4 mg tablets in a dose pack TAKE DIRECTED active Not Available Not Available No t Available albuterol sulfate HFA 90 mcg/actuati on aerosol inhaler INHALE 2 PUFFS BY MOUTH EVERY 4 HOURS NEEDED active Not Available Not Available No t Available amoxicillin 875 mg-potassiu m clavulanate 125 mg tablet TAKE 1 TABLET BY MOUTH EVERY 12 HOURS FOR 7 DAYS active Not Available Not Available No t Available Combivent Respimat 20 mcg-100 mcg/actuati on solution for inhalation INHALE 1 PUFF BY MOUTH FOUR TIMES DAILY NEEDED active Not Available Not Available No t Available Trelegy Ellipta 100 mcg-62.5 mcg-25 mcg powder for inhalation Inhale 1 puff(s) every day by inhalatio n route. 2023 active Not Available Not Available Not Avai lable Vitals Date Recorded Body height Heart rate Oxygen saturation Oxygen saturation in Arterial blood by Pulse oximetry Oxygen saturation Oxygen saturation in Arterial blood by Pulse oximetry Body mass index (BMI) Body weight Respiratory rate Systolic blood pressure Diastolic blood pressure Provider Name and Address Organization Details Last Updated DateTime 187.96 cm 86 /min 92 % 92 % 94 % 94 % 35.3 kg/m2 455677. 9 g 20 /min 142 mm[Hg] 82 mm[Hg] Ginna Duong MA [facility] 11:14:23 Date Recorded Systolic blood pressure Diastolic blood pressure Provider Name and Address Organization Details Last Updated DateTime 12/08/2023 138 mm[Hg] 70 mm[Hg] LOLY Proctor Attn: Accounting,[address] [place], [address], [facility] 12/08/2023 11:39:55 Date Recorded Body height Body mass index (BMI) Body weight Respiratory rate Provider Name and Address Organization Details Last Updated DateTime 01/21/2024 187.96 cm 35.1 kg/m2 164724.44 g 24 /min Ana M Rene [facility] 01/21/2024 16:43:50 Date Recorded Heart rate Systolic blood pressure Diastolic blood pressure Provider Name and Address Organization Details Last Updated DateTime 01/21/2024 90 /min 140 mm[Hg] 80 mm[Hg] LOLY Proctor Attn: Accounting,[address] [place], [address], [facility] 02/06/2024 16:14:08 Social History Question Answer Notes LastModified by Organizat ion Details LastModified Time Tobacco Smoking Status Current Some Day Smoker Ginna Duong MA null, [facility] 12/07/2023 16:55:40 Do You Have An Advance Directive? No Information not available 12/07/2023 Are You Blind Or Do You Have Difficulty Seeing? No Information not available 12/07/2023 What Is Your Level Of Caffeine Consumption? Occasional Soda,coff ee Information not available 12/07/2023 In The 14 Days Before Symptom Onset, Have You Had Close Contact With A Laboratory-confir med COVID-19 While That Case Was Ill? No Information not available 12/07/2023 In The 14 Days Before Symptom Onset, Have You Had Close Contact With A Person Who Is Under Investigation For COVID-19 While That Person Was Ill? No Information not available 12/07/2023 Have You Been To An Area Known To Be High Risk For COVID-19? No Information not available 12/07/2023 Are You Deaf Or Do You Have Serious Difficulty Hearing? No Information not available 12/07/2023 What Type Of Diet Are You Following? REGULAR Information not available 12/07/2023 Are There Any Guns Present In Your Home? No Information not available 12/07/2023 What Was The Date Of Your Most Recent Tobacco Screening? 12/08/2023 Information not available 12/08/2023 What Is Your Current Pack Years? 20-29packyears Information not available 12/07/2023 What Is Your Relationship Status? Information not available 12/07/2023 Do You Use Your Seat Belt Or Car Seat Routinely? Yes Information not available 12/07/2023 Do You Have Smoke And Carbon Monoxide Detectors In Your Home? Yes Information not available 12/07/2023 Do You Use Sunscreen Routinely? No Information not available 12/07/2023 Has Tobacco Cessation Counseling Been Provided? Yes Information not available 12/07/2023 On What Date Was Tobacco Cessation Counseling Provided? 12/08/2023 Information not available 12/08/2023 Sex: Male Functional Status Question Answer Note LastModified by Organizat ion Details LastModified Time Do you use any illicit or recreational drugs? No Information not available 12/07/2023 Do you or have you ever used any other forms of tobacco or nicotine? No Information not available 12/07/2023 What is your level of alcohol consumption? Occasional beer,budl ight Information not available 12/07/2023 Are you able to care for yourself? Yes Information not available 12/07/2023 What is your exercise level? None Information not available 12/07/2023 Mental Status Question Answer Note LastModified by Organization D etails LastModified Time Do you feel stressed (tense, restless, nervous, or anxious, or unable to sleep at night)? [id number] Information not available 12/07/2023 Family History Nothing Reported. Medical History Condition Response Coronary Artery Disease N Other N High Blood Pressure Y Atrial Fibrillation N Kidney or Bladder Problems Y Thyroid Problems N GI Problems N Depression N COPD Y Blood Clots N Skin Problems N Anemia N Heart Attack (NH) Y Anxiety Disorder N Diabetes N Muscle, Joint, or Bone Problems N Seizures/Epilepsy N Acid Reflux (GERD) N Cancer Y Stroke N Asthma N Allergies N High Cholesterol N Hepatitis N Liver Disease N Headaches N Heart Failure N Osteoporosis N Past Encounters Encounter ID Performer Location Encounter Start Date Encounter Closed Date Diagnosis/Indication Diagnosis SNOMED-CT Code Diagnosis ICD10 Code Diagnosis Note [id number] Orlando Lara MD [facility] [address] [facility] [address] [place] [id number] 12/08/2023 11:07:00 12/08/2023 12:39:11 Severe chronic obstructive pulmonary disease 187473840 J44.9 refill on trelegy ellipta 100/62.5mc g 1 puff daily. refill combivent respimat. Benign ess ential hypertension 7318684 I10 stable on amlodipine 10mg daily and hydralazin e 25mg bid. Hyperlipidemia 87033692 E78.5 stable on atorvastat in 10mg daily. due for fasting lipids Chronic ki dney disease stage 4 [address]18[address] jones routinely. check updated bmp. Long-term drug therapy 081351172 Z79.899 routine labs are due. History of radical prostatectomy 6738916904 65941 Z90.79 2004. Carotid bruit present 27 7463078 R09.89 refer for carotid duplex bilat. Body mass index 30+ - obesity 545532385 Z68.35 Obesity 040407735 E66.9 discussed healthy diet, exercise, controllin g carbohydra swapnil and added sugars in the diet [id number] Orlando Lara MD [facility] [address] [place] [address] 01/21/2024 16:35:06 01/21/2024 17:03:06 Low back strain 190334968 S39.012D Patient's symptoms are more consistent with an acute lumbar strain. He is still having some discomfort we will start prednisone 50 mg daily x5 days and Flexeril 10 mg 3 times a day as needed for lumbar muscle tension. Chronic ob structive pulmonary disease 51465642 J44.9 Refill on albuterol inhaler needed. Underlying COPD. Health Concerns Section Related Observation LastModified by Organization Detai ls LastModified Time None Recorded Concern Status LastModified by Organization Details LastModified Time None Recorded Advance Directives Directive N: Payers Encounter Date Sequence Insurance Name Policy Number Policy Evlasco Covered Member ID Velasco Member ID Guarantor Name 12/08/2023 1 [facility] (MEDICARE REPLACEMENT/A DVANTAGE - HMO) [id number] Reji Ann [id number] Reji Ann 01/21/2024 1 [facility] (MEDICARE REPLACEMENT/A DVANTAGE - HMO) [id number] Reji Auspherixsd [id number] Reji Ann Notes Date Note Type Note Provider Name and Address Organization Details Recorded Time 12/08/2023 text/html COPDReported bypatient.Notes:pt wants this provider to refill inhalers. on combivent respimat and trelegy.Hyperlipidem iaReported bypatient.Notes:pt is taking atorvastatin 10mg daily. due for labs.HypertensionRep orted bypatient.Notes:pt is taking multiple agents: amlodipine 10mg daily, hydralazine 25mg bid, and furosemide 20mg daily. CKD stage 4: seeing Dr. Jones office January 06. They told him last appt that he's steady in holding pattern. no dialysis. no fistula placed. LOLY Proctor Attn: Accounting,[address] [facility], [place], [address], [facility] 12/28/2023 00:25:39 01/21/2024 text/html General Rash/Ski n LesionReported bypatient.Notes:Pt is here for an e/r f/u from Thursday for acute lower back pain that started while walking a good distance from his car to his granddaughter's rehearsal dinner at the winery. They did labs and CT and didnt find anything. They thought it was pneumonia and it settled in his lower back. They put him on two abx and muscle relaxer. Today he feels a lot better. Finished one of the abx today. LOLY Proctor Attn: Accounting,[address] [place], [address], [facility] 02/06/2024 16:16:52
--- OUTSIDE RECORDS SUMMARY | 2024-12-23 15:51 | XMS_ITS | Encounter Summary ---
Author Organization [facility] Address [address] [place] [address] Phone Care Team Providers Care Contract Accountant Name Role Phone Orlando Lara MD Primary Care Provider [phone] Reason for Visit * Reason Comments Med Refill Encounter Details Date Type Department Care Team (Late st Contact Info) Description 03/10/2020 Refill [facility] [address] [place] [address] Uday Jones MD [address] [address] Social History Tobacco Use Types [...] Description 01/03/2025 1:40 PM CDT Office Visit [facility] [address], [address] [place], [place] [id number] Rosemary Hugo NP [address] [address] documented as of this encounter Visit Diagnoses Not on filedocumented in this encounter Care Teams Contract Accountant Relationship Specialty Start Date End Date Orlando Lara MD 2044 [facility] 15 [place] [id number] PCP - General 09/07/24 documented as of this encounter
--- OUTSIDE RECORDS SUMMARY | 2024-12-23 15:51 | XMS_ITS | Encounter Summary ---
Author Organization [facility] Healthcare Address [address] [place] [address] Care Team Providers Care Proposal Specialist Name Role Phone Soraya Jauregui MD Primary Care Provider Encounter Details Date Type Department Care Team (Late st Contact Info) Description 12/23/[address] [facility] Cardiology [address] [facility] [address] [place] [address] Orlando Porter MD [address] [place] [address] Social History Tobacco Use Types Packs/Day Years Used Date Smoking Tobacco: Former Cigarettes Q uit: 08/03/2024 Alcohol Use Standard Drinks/Week Comments Yes 0 (1 standard drink = 0.6 oz pur e alcohol) [facility] Utilities Answer Date Recorded In the past 12 months has [employer] electric, gas, oil, or water company threatened [...] 11/10/2024 How often do you attend chur or adventism services? 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 If pt tolerates well then 90 supply will be sent in. * Telephone Encounter - [place] Trent - 12/23/2024 9:37 AM CDT Patient requesting refill for amiodarone 200 mg daily with 90 day supply. Please send to [facility] in [place], [place]. Thank you. Contact: documented in this encounter Plan of Treatment Upcoming Encounters Date Type Department Care Team (Late st Contact Info) Description 01/03/2025 7:30 AM CDT Hospital Encounter [facility] Operating Room 1 [place] [phone] Jon Pope MD PhD [address] [place] [address] 01/03/2025 7:30 AM CDT Anesthesia Event [facility] Operating [facility] 1 [place] [phone] China Mercado NP [address] [facility] [phone] [place] [address] 01/03/2025 7:30 AM CDT - 01/03/2025 11:15 AM CDT Surgery [facility] Operating Room 1 [place] [address] Jon Pope MD PhD [address] [place] [address] CREATION ARTERIOVENOUS FISTULA - ARM Scheduled Procedures Name Priority Associated Diagnoses Date/Ti me CREATION ARTERIOVENOUS FISTULA - ARM ESRD (end stage renal disease) ([facility]) 01/03/2025 7:30 AM CDT ARTERIOVENOUS GRAFT - LOWER EXTREMITY ESRD (end stage renal disease) ([facility]) 01/03/2025 7:30 AM CDT documented as of this encounter Visit Diagnoses Not on filedocumented in this encounter Care Teams Proposal Specialist Relationship Specialty Start Date End Date Soraya Jauregui MD [address] [place] [id number] PCP - General Internal Medicine 03/29/24 documented as of this encounter
--- OUTSIDE RECORDS SUMMARY | 2024-12-23 15:51 | XMS_ITS | Encounter Summary ---
Author Organization [facility] Address [address] [place] [address] Phone Care Team Providers Care Physician Coder Name Role Phone Orlando Lara MD Primary Care Provider Reason for Visit * Reason Comments Med Refill Encounter Details Date Type Department Care Team (Late st Contact Info) Description 08/17/2019 Refill [facility] [address], [address] [place], [place] [phone] Uday Jones MD [address] [address] Social History Tobacco Use Types [...] Description 01/03/2025 1:40 PM CDT Office Visit [facility] [address], [address] [place], [place] [id number] Rosemary Hugo NP [address] [address] documented as of this encounter Visit Diagnoses Not on filedocumented in this encounter Care Teams Physician Coder Relationship Specialty Start Date End Date Orlando Lara MD 2044 [facility] 15 [place] [phone] PCP - General 09/07/24 documented as of this encounter
--- OUTSIDE RECORDS SUMMARY | 2024-12-23 15:51 | XMS_ITS | Encounter Summary ---
Author Organization [facility] Address [address] [place] [address] Phone Care Team Providers Care Technology Education Instructor Name Role Phone Orlando Lara MD Primary Care Provider [phone] Reason for Visit * Reason Comments Med Refill Encounter Details Date Type Department Care Team (Late st Contact Info) Description 02/19/2019 Refill [facility] [address], [address] [place] [address] Uday Jones MD [facility] [address] [id number] Social History Tobacco Use Types Packs/Day Years Used Date Smoking Tobacco: Former Smokeless Tobacco: Never Comments:Smoking History Pac ks/day: quit - 8 months ago Alcohol Use Standard Drinks/Week Comments Yes 0 (1 standard drink = 0.6 oz pure alcohol) Alcoholic Drinks/day: occasional use Sex and Gender Information Value Date Recorded Sex Assigned at Not on file Legal Sex Male 9:08 AM [facility] Gender Identity Not on file Sexual Orientation Not on file documented as of this encounter Miscellaneous Notes * Telephone Encounter - Mackenzie Delvalle MA - 02/21/2019 10:21 AM CDT Called to Pat - metoprolol tart 100mg bid 90 day #180 w/ 1 refill. 02/21/19 jw documented in this encounter Plan of Treatment Upcoming Encounters Date Type Department Care Team (Late Contact Info) Description 01/03/2025 1:40 PM CDT Office Visit [facility] [address], [address] [place] [address] Rosemary Hugo, JUNIOR [address] [facility] 1 [place] [address] documented as of this encounter Visit Diagnoses Not on filedocumented in this encounter Care Teams Technology Education Instructor Relationship Specialty Start Date End Date Orlando Lara MD 2044 [facility] 15 [place] [address] PCP - General 09/07/24 documented as of this encounter
--- OUTSIDE RECORDS SUMMARY | 2024-12-23 15:51 | XMS_ITS | Encounter Summary ---
Author Organization [facility] Address [address] [place] [address] Phone Care Team Providers Care Non Profit Director Name Role Phone Orlando Lara MD Primary Care Provider [phone] Reason for Visit * Reason Comments Med Refill Encounter Details Date Type Department Care Team (Late st Contact Info) Description 08/20/2019 Refill [facility] [address], [address] [place], [place] [phone] Uday Jones MD [address] [address] Social History Tobacco Use Types [...] Description 01/03/2025 1:40 PM CDT Office Visit [facility] [address], [address] [place], [place] [phone] Rosemary Hugo NP [address] [address] documented as of this encounter Visit Diagnoses Not on filedocumented in this encounter Care Teams Non Profit Director Relationship Specialty Start Date End Date Orlando Lara MD 2044 [facility] 15 [place] [phone] PCP - General 09/07/24 documented as of this encounter
--- OUTSIDE RECORDS SUMMARY | 2024-12-23 15:51 | XMS_ITS | Encounter Summary ---
Author Organization [facility] Address [address] [place] [address] Phone Care Team Providers Care Hand Flesher Name Role Phone Orlando Lara MD Primary Care Provider [phone] Reason for Visit * Reason Comments Med Refill Encounter Details Date Type Department Care Team (Late st Contact Info) Description 11/17/2018 Refill [facility] 5[address] [facility] 1 [place] [address] Uday Jones MD [address] [address] Social History Tobacco Use Types Packs/Day Years Used Date Smoking Tobacco: Former Comments:Smoking History Pac ks/day: quit - 8 [...] encounter Miscellaneous Notes * Telephone Encounter - Elza Ferris MA - 11/18/2018 1:51 PM CDT Called in metoprolol tartrate 100mg 1 tab by mouth twice daily #180 no refills documented in this encounter Plan of Treatment Upcoming Encounters Date Type Department Care Team (Late st Contact Info) Description 01/03/2025 1:40 PM CDT Office Visit [facility] [address], [address] [place] [address] Rosemary Hugo, PUBLICATIONS PRODUCTION SUPERVISOR [address] [facility] 1 [place] [address] documented as of this encounter Visit Diagnoses Not on filedocumented in this encounter Care Teams Hand Flesher Relationship Specialty Start Date End Date Orlando Lara MD 2044 [facility] 15 [place] [address] PCP - General 09/07/24 documented as of this encounter
--- OUTSIDE RECORDS SUMMARY | 2024-12-23 15:51 | XMS_ITS | Encounter Summary ---
Author Organization [facility] Address [address] [place] [address] Phone Care Team Providers Care Fox Farmer Name Role Phone Orlando Lara MD Primary Care Provider [phone] Reason for Visit * Reason Comments Med Refill Encounter Details Date Type Department Care Team (Late st Contact Info) Description 08/17/2019 Refill [facility] [address], [address] [place], [place] [phone] Uday Jones MD [address] [address] Social History Tobacco Use Types [...] Description 01/03/2025 1:40 PM CDT Office Visit [facility] [address], [address] [place], [place] [phone] Rosemary Hugo NP [address] [address] documented as of this encounter Visit Diagnoses Not on filedocumented in this encounter Care Teams Fox Farmer Relationship Specialty Start Date End Date Orlando Lara MD 2044 [facility] 15 [place] [phone] PCP - General 09/07/24 documented as of this encounter
--- OUTSIDE RECORDS SUMMARY | 2024-12-23 15:51 | XMS_ITS | Encounter Summary ---
Author Organization [facility] Address [address] [place] [address] Phone Care Team Providers Care Digital Production Manager Name Role Phone Orlando Lara MD Primary Care Provider [phone] Reason for Visit * Reason Comments Med Refill Encounter Details Date Type Department Care Team (Late Contact Info) Description 03/12/2020 Refill [facility] [address], [address] [place] [address] Uday Jones MD [address] [address] Social History Tobacco Use [...] on file Legal Sex Male 9:08 AM [facility] Gender Identity Not on file Sexual Orientation Not on file documented as of this encounter Miscellaneous Notes * Telephone Encounter - Anel Greenwood RN - 03/12/2020 4:54 PM CDT Called to pharmacy VM documented in this encounter Plan of Treatment Upcoming Encounters Date Type Department Care Team (Late Contact Info) Description 01/03/2025 1:40 PM CDT Office Visit [facility] [address], [address] [place] [address] Rosemary Hugo NP [address] [facility] 1 [place] [address] documented as of this encounter Visit Diagnoses Not on filedocumented in this encounter Care Teams Digital Production Manager Relationship Specialty Start Date End Date Orlando Lara MD 2043 [facility] 15 [place] [address] PCP - General 09/07/24 documented as of this encounter
--- OUTSIDE RECORDS SUMMARY | 2024-12-23 15:51 | XMS_ITS | Encounter Summary ---
Author Organization [facility] Address [address] [place] [address] Phone Care Team Providers Care Funeral Driver Name Role Phone Orlando Lara MD Primary Care Provider [phone] Reason for Visit * Reason Comments Med Refill Encounter Details Date Type Department Care Team (Late st Contact Info) Description 04/12/2021 Refill [facility] [address], [address] [place] [address] Uday Jones MD [address] [address] Social History Tobacco Use Types Packs/Day Years Used Date Smoking Tobacco: Former Smokeless Tobacco: Never Comments:Smoking History Pac ks/day: quit - 8 months ago Alcohol Use Standard Drinks/Week Comments Yes 0 (1 standard drink = 0.6 oz pure alcohol) Alcoholic Drinks/day: occasional use Sex and Gender Information Value Date Recorded Sex Assigned at Not on file Legal Sex Male 9:08 AM [facility] Gender Identity Not on file Sexual Orientation Not on file documented as of this encounter Miscellaneous Notes * Telephone Encounter - Mackenzie Delvalle MA - 04/12/2021 11:31 AM CDT It is okay! I called it into the pharmacy informatics manager documented in this encounter Plan of Treatment Upcoming Encounters Date Type Department Care Team (Late st Contact Info) Description 01/03/2025 1:40 PM CDT Office Visit [facility] [address], [address] [place] [address] Rosemary Hugo, INSULATION WORKER [address] [facility] 1 [place] [address] documented as of this encounter Visit Diagnoses Not on filedocumented in this encounter Care Teams Funeral Driver Relationship Specialty Start Date End Date Orlando Lara MD 2044 [facility] 15 [place] [address] PCP - General 09/07/24 documented as of this encounter
--- OUTSIDE RECORDS SUMMARY | 2024-12-23 15:52 | XMS_ITS | Referral Summary ---
Author Organization [facility] [address] [facility] [address] Address [address] [facility] [address] [place] [address] Care Team Providers Care Cold Strip Roller Name Role Phone Soraya Jauregui MD Primary Care Provider Encounters Date Type Department Care Team Description 5 Telephone [facility] Medical [facility] Cardiology [address] [facility] [address] [place] [address] Orlando Porter MD 5 1:30 PM CDT Office Visit [facility] Cardiology [address] [facility] [address] [place] [address] Orlando Porter MD History of coronary artery stent placement (Primary Dx); 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 12th [place] [address] [place] [address] 5 1:45 PM CDT Office Visit [facility] Surgery [address] [facility] 12th [place] [address] [place] [address] Jon Pope MD PhD ESRD on hemodialysis (HCC) (Primary Dx); ESRD on dialysis (HCC); CKD (chronic kidney disease), stage V (HCC) 5 Telephone [facility] Pulmonary [address] [place] [address] Rigoberto Croft MD Request For Order(s) 5 3:39 PM CDT - 5 11:59 PM CDT Hospital Encounter [facility] Respiratory Therapy [address] [place] [address] Simple chronic bronchitis (HCC) Discharge Disposition: Discharge to home or self care 5 1:00 PM CDT Office Visit [facility] Primary Care [address] [facility] [address] [place] [address] Jackie Umanzor NP CAP (community acquired pneumonia) (Primary Dx); Paroxysmal atrial fibrillation (HCC); Chronic systolic congestive heart failure (HCC); CKD (chronic kidney disease), stage V (HCC); Chronic obstructive pulmonary disease, unspecified COPD type (HCC); Mixed hyperlipidemia; Benign hypertension with CKD (chronic kidney disease) stage V (HCC); Class 1 obesity due to excess calories with serious comorbidity and body mass index (BMI) of 32.0 to 32.9 in adult 5 12:15 PM CDT Office Visit [address] [place] [address] Rigoberto Croft MD Simple chronic bronchitis (HCC) (Primary Dx); Dyspnea on exertion; Chronic systolic congestive heart failure (HCC) 5 10:00 AM CDT Office Visit [facility] Cardiology [address] [facility] [address] [place] [phone] Rosi Corrales NP Atrial fibrillation, unspecified type (HCC) (Primary Dx); Chronic systolic congestive heart failure (HCC); Coronary artery disease involving karuk coronary artery of karuk heart without angina pectoris; Hemodialysis-associated hypotension; CKD (chronic kidney disease), stage V (HCC) 5 Telephone [facility] Surgery [address] [facility] 12th [place] [address] [place] [address] Jon Pope MD PhD 5 Telephone [facility] Medical Group Primary Care [address] [place] [address] [place] [phone] Soraya Jauregui MD Appointment Request [address] [place] [address] Maxine rS RN 5 12:00 PM CDT Home Care Visit [address] [place] [address] Eloina Corbin, IVANNA SN HOSPICE TELEPHONE VISIT 5 Telephone [facility] Medical [facility] Primary Care [address] [place] [address] [place] [phone] Soraya Jauregui MD Medical Question/Miscellaneous; Palliative Care Follow-up 5 Telephone [facility] Medical [facility] Primary Care [address] [place] [address] [place] [phone] Soraya Jauregui MD Appointment Request 5 [facility] Subsequent Outreach [facility] [address] [place] [phone] Bebeto Kelly, RN 5 2:23 PM CDT - 5 2:52 PM CDT Hospital Encounter [address] [address] Jonathan Lentz DO Bezuneh, MD Eliel Robertson, MD Amara Romo, MD Mayte Liz, MD Joesph Baez, MD Kev Blanco, Chas Jackson MD Shortness of breath (Primary Dx); COPD exacerbation (HCC); Chronic kidney disease, unspecified CKD stage; Chronic obstructive pulmonary disease, unspecified COPD type (HCC) [J44.9]; Secondary hyperparathyroidism of renal origin [N25.81]; CKD (chronic kidney disease), stage V (HCC) [N18.5]; Benign hypertension with CKD (chronic kidney disease) stage V (HCC) [I12.0, N18.5]; History of coronary artery stent placement [Z95.5]; Simple chronic bronchitis (HCC) [J41.0]; Hypoxia [R09.02]; CAP (community acquired pneumonia) [J18.9]; Acute on chronic systolic heart failure (HCC) [I50.23]; CKD (chronic kidney disease), stage V (HCC); Atrial fibrillation, unspecified type (HCC); Chronic obstructive pulmonary disease with acute exacerbation (HCC) [J44.1]; Acute hypoxic respiratory failure (HCC) Discharge Disposition: Discharge to home or self care 5 11:30 AM CDT - 5 12:30 PM [facility] Cardiac Ruffling [employer] Automatic [address] [place] [address] Lucius Jauregui MD INSERT TUNNELED CV CATH W/PORT OR PUMP >5YO [address] 5 9:30 AM CDT - 5 10:30 AM [facility] Cardiac [facility] [employer] [address] [place] [address] Lucius Jauregui MD INSERT TUNNELED CV CATH W/PORT OR PUMP >5YO [address] 5 TCC Initial Eligibility Review [facility] [address] [place] [phone] Bebeto Kelly RN 5 Telephone [facility] Medical Group Primary Care [address] [place] [phone] Soraya Jauregui MD from Last 3 Months Allergies No known active allergies Medications aspirin 81 mg tablet take 1 Tablet (81MG) by oral route every day 0 012 Active Additional Information Patient taking differently:81 mgoral Daily before breakfast, Indications: Myocardial Reinfarction Prevention, Informant: Spouse/Significant Other, Reported on 12/22/2024 atorvastatin (LIPITOR) 10 mg tabletIndicatio ns:hyperlipidem ia Take 1 tablet (10 mg total) by mouth daily before breakfast 019 Active Combivent Respimat 20-100 mcg/actuation inhaler Inhale 1 puff 4 (four) times a day as needed for wheezing or shortness of breath 022 Active nitroglycerin (NITROSTAT) 0.[address] 1 tablet (0.4 mg total) under the tongue every 5 (five) minutes as needed for chest pain Maximum of 3 tablets in 15 minutes. 25 tablet 3 024 Active calcitRIOL (ROCALTROL) 0.5 mcg capsuleIndicati ons:Vitamin D Deficiency Take 1 capsule (0.5 mcg total) by mouth 3 (three) times a week Given at dialysis 024 Active fluticasone-ume clidin-vilanter (Trelegy Ellipta) 100-62.5-25 mcg inhalerIndicati ons:Bronchospas m Prevention with COPD Inhale 1 puff daily before breakfast Active allopurinoL (ZYLOPRIM) 100 mg tabletIndicatio ns:prevention of acute gout attack Take 1 tablet (100 mg total) by mouth daily before breakfast 025 Active sodium citrate-citric acid (CYTRA 2) 100-66.8 mg/mL solutionIndicat ions:renal tubular acidosis Take 15 mL by mouth 3 (three) times a day with meals TAKE 15 ML BY MOUTH IN THE MORNING AND AT NOON AND IN THE EVENING WITH MEALS 025 Active sodium bicarbonate 650 mg tabletIndicatio ns:renal tubular acidosis Take 2 tablets (1,300 mg total) by mouth 3 (three) times a day 024 Active multivitamin with folic acid 400 mcg tablet Take 1 tablet by mouth daily 90 tablet 1 025 Active Additional Information Patient taking differently:1 tablet oralDaily before breakfast, Indications: Vitamin Deficiency Prevention, Informant: Self, Reported on 12/22/2024 metoprolol XL (TOPROL-XL) 50 mg extended release tabletIndicatio ns:Atrial fibrillation, unspecified type (HCC) Take 1 tablet (50 mg total) by mouth nightly 90 tablet 1 025 Active Additional Information Patient taking differently:50 mg oral Nightly,Indications: hypertension, Informant: Spouse/Significant Other, Reported on 12/22/[address] (PROTONIX) 40 mg EC tabletIndicatio ns:Stress Ulcer Prophylaxis,Allen atment of Non-Bleeding Gastric Disorder Take 1 tablet (40 mg total) by mouth 2 (two) times a day 180 tablet 025 Active Additional Information Patient taking differently:40 mg oral 2 times daily,Indications: Treatment of Non-Bleeding Gastric Disorder, Informant: Spouse/Significant Other, Reported on 12/22/2024 apixaban (ELIQUIS) 5 mg tabletIndicatio ns:atrial fibrillation Take 1 tablet (5 mg total) by mouth every 12 (twelve) hours 60 tablet 11 025 Active Additional Information Patient taking differently:5 mg oral2 times daily, Indications: atrial fibrillation, Informant: Spouse/Significant Other, Reported on 12/22/2024 sacubitriL-vals seven (ENTRESTO) 24-26 mg tabletIndicatio ns:chronic heart failure Take 0.5 tablets by mouth 2 (two) times a day 30 tablet 11 025 Active ipratropium-alb uteroL (DUO-NEB) 0.5-2.5 mg/3 mL nebulizer solutionIndicat ions:Chronic obstructive pulmonary disease, unspecified COPD type (HCC) Take 3 mL by nebulization 2 (two) times a day 180 mL 3 025 Active Additional Information Patient taking differently:3 mL nebulization 2 times daily,Indications: Chronic Obstructive Pulmonary Disease with Bronchospasms, Informant: Self, Reported on 12/22/2024 albuterol HFA (PROVENTIL HFA,VENTOLIN HFA,PROAIR HFA) 90 mcg/actuation inhaler INHALE 2 PUFFS BY MOUTH EVERY 4 HOURS NEEDED FOR SHORTNESS OF BREATH OR WHEEZING 8.5 g 3 025 Active Additional Information Patient taking differently: 1 puff inhalation Every 6 hours PRN, wheezing, shortness of breath, Informant: Spouse/Significant Other, Reported on 12/22/2024 acetaminophen (TYLENOL) 325 mg tablet Take 2 tablets (650 mg total) by mouth every 6 (six) hours as needed for pain Active amiodarone (PACERONE) 200 mg tablet Take 1 tablet (200 mg total) by mouth daily 30 tablet 5 025 2024 Active multivitamin capsule Take 1 capsule by mouth daily 2024 Discontinued(T herapy completed) albuterol HFA (ProAir HFA) 90 mcg/actuation inhaler Inhale 2 puffs every 4 (four) hours as needed for shortness of breath or wheezing 1 each 4 024 2024 Discontinued budesonide-form oteroL (SYMBICORT) 80-4.5 mcg/actuation inhaler Inhale 2 puffs 2 (two) times a day Rinse mouth with water after use. Do not swallow. 1 each 025 2024 Discontinued(T herapy completed) predniSONE (DELTASONE) 10 mg tablet Take 3 tablets (30 mg) by mouth daily For 3 days 20 mgm daily for 3 days 10 mg daily for 3 days, 5 mg daily for 3 days 20 tablet 025 2024 Discontinued(T herapy completed) Active Problems Problem Noted Date Diagnosed Date ESRD (end stage renal disease) 12/16/2024 ESRD on hemodialysis 12/15/2024 Chronic systolic congestive heart failure 2024 Hypoxia 10/18/2024 CAP (community acquired pneumonia) 10/18/2024 Shortness of breath 10/17/2024 Atrial fibrillation 10/17/2024 Coronary artery disease of n ative artery of karuk heart with stable angina pectoris 03/21/2024 Chronic obstructive pulmonary disease 03/21/2024 CKD (chronic kidney disease), stage V 03/21/2024 Secondary hyperparathyroidism of renal origin Asymptomatic stenosis of left carotid artery Assessment & Plan (09/01/2024 10:18 AM 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 Patient remains asymptomatic. Recommend continued aspirin statin therapy good blood pressure control and risk factor modifications. Follow-up in 1 year for routine surveillance with carotid duplex. Assessment & Plan (02/19/2024 12:10 PM CDT): Asymptomatic moderate 50-69% stenosis of the left ICA. Discussed findings and management with the patient with recommendation for ongoing surveillance and risk factor modification. Continue ASA statin therapy good blood pressure control. Follow up in 6 months repeat carotid duplex Mixed hyperlipidemia 02/19/2024 Assessment & Plan (02/19/2024 12:10 PM CDT): Stable continue Lipitor 10 mg Benign hypertension with CKD (chronic kidney disease) stage V 02/19/2024 Assessment & Plan (02/19/2024 12:10 PM CDT): Stable continue Coreg 6.25 mg Angina pectoris, unspecified 12/22/2023 History of coronary artery stent placement 01/26 Resolved Problems Problem Noted Date Diagnosed Date Resolved Date Acute on chronic systolic heart failure 10/18/2024 11/02/2024 Coronary artery disease invo lving karuk coronary artery of karuk heart without angina pectoris 05/26/2019 03/21/2024 Immunizations Immunization Administration Dates Next Due Hep A, Unspecified 08/03/1955 Influenza, Quad, Adjuvantate d, Intramuscular 07/23/2023 Influenza, Quadrivalent, Hig h Dose, Preservative Free, Intrr 07/15/2022,06/06/2021,05/31/2020 Influenza, Trivalent, High D ose, Split, Preservative Free, Intramuscular 07/22/2024,06/10/2019,07/02/2018,07/16 Influenza, Unspecified 07/15/2022 Pfizer SARS-CoV-2 Monovalent Vaccination (12+ Yrs) PURPLE 07/15/2022 Pneumococcal Conjugate PCV 13 07/02/2018 Pneumococcal Polysaccharide PPV23 07/08/2019 RSV Vaccine, Pref, Recombina nt, Subunit, Adjuvanted, PF, IM (Arexvy) 07/22/2024 Social History Tobacco Use Types Packs/Day Years Used Date Smoking Tobacco: Former Cigarettes Q uit: 08/03/2024 Tobacco Cessation:Counseling Given: Not Answered Alcohol Use Standard Drinks/Week Comments Yes 0 (1 standard drink = 0.6 oz pur e alcohol) [facility] Utilities Answer Date Recorded In the past 12 months has th e electric, gas, oil, or water company threatened [...] often do you attend chur ch or jainism services? Patient unable to answer 11/10/2024 Do you belong to any clubs o r organizations such as christianity groups, unions, fraternal or athletic groups, or [...] any time in the past 12 m [facility], were you homeless or living in a custodial (including now)? Patient unable to answer 11/10/2024 Personal Safety Answer Date Recorded Have you ever been in or are you currently in a harmful physical or emotional relationship or is someone making you feel afraid or unsafe? 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 Gender Identity Not on file Sexual Orientation Not on file Last Filed Vital Signs Vital Sign Reading Time Taken Comments Blood Pressure 110/64 12/22/2024 1:09 PM CDT Pulse 128 12/22/2024 1:09 PM CDT Temperature 36.2 C (97.2 F) 12/15/2024 1:52 PM CDT Respiratory Rate 16 11/15/2024 11:5 8 AM CDT Oxygen Saturation 99% 12/22/2024 1:09 PM CDT Inhaled Oxygen Concentration - - Weight 120.9 kg (266 lb 9.6 oz) 12/22/2024 1:09 PM CDT Height 190.5 cm (6' 3 ) 12/22/2024 1:09 PM CDT Body Mass Index 33.32 12/22/2024 1:09 PM CDT Plan of Treatment Upcoming Encounters Date Type Department Care Team (Late st Contact Info) Description 01/03/2025 7:30 AM CDT Hospital Encounter [facility] Operating Room 1 [place] [address] Jon Pope MD PhD [id number] [place] [address] 01/03/2025 7:30 AM CDT Anesthesia Event [facility] Operating Room [address] [place] [address] China Mercado, PAYROLL MANAGER [address] [facility] [phone] [place] [address] 01/03/2025 7:30 AM CDT - 01/03/2025 11:15 AM CDT Surgery [facility] Operating Room [address] [place] [address] Jon Pope MD PhD [id number] [place] [address] CREATION ARTERIOVENOUS FISTULA - ARM Scheduled Procedures Name Priority Associated Diagnoses Date/Ti me CREATION ARTERIOVENOUS FISTULA - ARM ESRD (end stage renal disease) ([facility]) 01/03/2025 7:30 AM CDT ARTERIOVENOUS GRAFT - LOWER EXTREMITY ESRD (end stage renal disease) ([facility]) 01/03/2025 7:30 AM CDT Medical Devices Implanted Type Area Web Interface Developer Device Identifier Shelf Expiration Date Model / Serial / Lot [employer] Mahurkar Elite Double-D 12fr 24cm 2 Lumen Atraumatic Tip [id number] - [id number] Implanted:Qty: 1 on 10/21/2024 by Lucius Jauregui MD at [facility] C-sam [facility] [id number] / / [place] Peripheral Vascular Kit Catheter Hemodialysis Dual Lumen Straight Mcc Polyurethane Glidepath [id number] - [id number] Implanted:Qty: 1 on 10/25/2024 by Lucius Jauregui MD at [facility] Peripheral Vascular [id number] / / Procedures Procedure Name Priority Date/Time Associated Diagnosis Comments ELECTROCARDIOGRAM REPORT Routine 12/22/2024 3:43 PM CDT Longstanding persistent atrial fibrillation (HCC) POCUS DUPLEX BILATERAL VESSEL MAPPING FOR HD ACCESS Schedule Routine, Read Routine (OP Routine) 12/15/2024 1:56 PM CDT ESRD on hemodialysis (HCC) PULMONARY FUNCTION TEST (PFT) Routine 11/22/2024 4:36 PM CDT Simple chronic bronchitis (HCC) EGFR Routine 10/27/2024 2:44 AM CDT DIFFERENTIAL AUTO Routine 10/27/2024 2:4 4 AM CDT BASIC METABOLIC PANEL Routine 10/27/2024 2:44 AM CDT CBC WITH AUTO DIFFERENTIAL Routine 10/27/2024 2:44 AM CDT HEMODIALYSIS Routine 10/26/2024 6:38 PM CDT EGFR Routine 10/26/2024 2:55 AM CDT DIFFERENTIAL AUTO Routine 10/26/2024 2:5 5 AM CDT BASIC METABOLIC PANEL Routine 10/26/2024 2:55 AM CDT CBC WITH AUTO DIFFERENTIAL Routine 10/26/2024 2:[address] CHEST ABDOMEN PELVIS WO CONTRAST IP Routine 10/25/2024 5:43 PM CDT HEPATIC FUNCTION PANEL STAT 1:04 PM CDT PROTIME-INR STAT 10/25/2024 1:04 PM CDT XR CHEST 1 VIEW ED Urgent/IP Urgent 10/25/2024 12:25 PM CDT INSERT TUNNELED CV CATH W/PORT OR PUMP >5YO [id number] Routine 10/25/2024 11:38 AM CDT CKD (chronic kidney disease), stage V (HCC) POTASSIUM LEVEL STAT 10/25/2024 10:20 AM CDT HEMODIALYSIS Routine 10/25/2024 8:57 AM CDT HEPARIN ANTI FACTOR XA ACTIVITY Timed 10/25/2024 5:09 AM CDT EGFR Routine 10/25/2024 3:26 AM CDT DIFFERENTIAL AUTO Routine 10/25/2024 3:2 6 AM CDT BASIC METABOLIC PANEL Routine 10/25/2024 3:26 AM CDT CBC WITH AUTO DIFFERENTIAL Routine 10/25/2024 3:26 AM CDT HEPARIN ANTI FACTOR XA ACTIVITY Timed 10/24/2024 11:39 PM CDT HEPARIN ANTI FACTOR XA ACTIVITY STAT 10/24/2024 2:55 PM CDT HEPATITIS B CORE ANTIBODY, TOTAL Routine 10/24/2024 2:55 PM CDT HEPATITIS B DNA, QUANTITATIVE, PCR Routine 10/24/2024 2:55 PM CDT HEPATITIS B SURFACE ANTIGEN Routine 10/24/2024 2:55 PM CDT ECG 12-LEAD STAT 10/24/2024 8:10 AM CDT MANUAL DIFFERENTIAL Routine 10/24/2024 5 :46 AM CDT EGFR Routine 10/24/2024 5:46 AM CDT HEPARIN ANTI FACTOR XA ACTIVITY Timed 10/24/2024 5:46 AM CDT BASIC METABOLIC PANEL Routine 10/24/2024 5:46 AM CDT CBC WITH AUTO DIFFERENTIAL Routine 10/24/2024 5:46 AM CDT HEMODIALYSIS Routine 10/24/2024 12:30 AM CDT HEPARIN ANTI FACTOR XA ACTIVITY Timed 10/23/2024 5:11 PM CDT BUN Routine 10/23/2024 2:56 PM CDT BLOOD CULTURE STAT 10/23/2024 10:33 AM CDT HEPARIN ANTI FACTOR XA ACTIVITY Timed 10/23/2024 10:26 AM CDT BLOOD CULTURE STAT 10/23/2024 10:26 AM CDT MANUAL DIFFERENTIAL Routine 10/23/2024 4 :53 AM CDT EGFR Routine 10/23/2024 4:53 AM CDT DIFFERENTIAL AUTO Routine 10/23/2024 4:5 3 AM CDT HEPARIN ANTI FACTOR XA ACTIVITY Timed 10/23/2024 4:53 AM CDT COMPREHENSIVE METABOLIC PANEL Routine 10/23/2024 4:53 AM CDT PHOSPHORUS Routine 10/23/2024 4:53 AM CDT MAGNESIUM Routine 10/23/2024 4:53 AM CDT CBC WITH AUTO DIFFERENTIAL Routine 10/23/2024 4:53 AM CDT US VEIN MAPPING DUPLEX UPPER EXTREMITY BILATERAL ED Urgent/IP Urgent 10/22/2024 5:21 PM CDT XR CHEST 1 VIEW ED Urgent/IP Urgent 10/22/2024 3:25 PM CDT CRITICAL CARE Routine 10/22/2024 3:18 PM CDT Acute hypoxic respiratory failure (HCC) [facility] INSJ NON-TUNNELED CENTRAL VENOUS CATH AGE 5 YR/> Routine 10/22/2024 3:15 PM CDT CKD (chronic kidney disease), stage V (HCC) Acute hypoxic respiratory failure (HCC) HEMODIALYSIS Routine 10/22/2024 12:46 PM CDT XR CHEST 1 VIEW IP Routine 10/22/2024 12:00 PM CDT BUN Routine 10/22/2024 11:48 AM CDT MANUAL DIFFERENTIAL Routine 10/22/2024 6 :32 AM CDT EGFR Routine 10/22/2024 6:32 AM CDT BASIC METABOLIC PANEL Routine 10/22/2024 6:32 AM CDT HEPARIN ANTI FACTOR XA ACTIVITY Routine 10/22/2024 6:32 AM CDT CBC WITH AUTO DIFFERENTIAL Routine 10/22/2024 6:32 AM CDT ECG 12-LEAD STAT 10/22/2024 12:45 AM CDT LIPID PANEL Routine 10/21/2024 6:34 PM CDT HEMODIALYSIS Routine 10/21/2024 10:32 AM CDT INSERT TUNNELED CV CATH W/PORT OR PUMP >5YO [address] Routine 10/21/2024 10:01 AM CDT CKD (chronic kidney disease), stage V (HCC) EGFR Routine 10/21/2024 6:44 AM CDT MANUAL DIFFERENTIAL Routine 10/21/2024 6 :44 AM CDT HEPARIN ANTI FACTOR XA ACTIVITY Routine 10/21/2024 6:44 AM CDT COMPREHENSIVE METABOLIC PANEL Routine 10/21/2024 6:44 AM CDT CBC WITH AUTO DIFFERENTIAL Routine 10/21/2024 6:44 AM CDT EGFR STAT 10/20/2024 2:38 PM CDT CREATININE STAT 10/20/2024 2:38 PM CDT HEPATIC FUNCTION PANEL STAT 2:38 PM CDT PROTIME-INR STAT 10/20/2024 2:38 PM CDT HEPATITIS B SURFACE ANTIBODY (IMMUNE STATUS) Routine 10/20/2024 12:31 PM CDT HEPATITIS PANEL, ACUTE Routine 12:31 PM CDT HEPARIN ANTI FACTOR XA ACTIVITY Routine 10/20/2024 9:[address] CHEST WO CONTRAST IP Routine 10/20/2024 6:34 AM CDT EGFR Routine 10/20/2024 3:52 AM CDT DIFFERENTIAL AUTO Routine 10/20/2024 3:5 2 AM CDT HEPARIN ANTI FACTOR XA ACTIVITY Routine 10/20/2024 3:52 AM CDT CRP (ACUTE PHASE) Routine 10/20/2024 3:5 2 AM CDT COMPREHENSIVE METABOLIC PANEL Routine 10/20/2024 3:52 AM CDT CBC WITH AUTO DIFFERENTIAL Routine 10/20/2024 3:52 AM CDT HEPARIN ANTI FACTOR XA ACTIVITY Timed 10/19/2024 7:33 PM CDT HEPARIN ANTI FACTOR XA ACTIVITY STAT 10/19/2024 12:50 PM CDT PROTIME-INR STAT 10/19/2024 12:50 PM CDT ECG 12-LEAD Routine 10/19/2024 12:28 PM CDT XR CHEST 1 VIEW IP Routine 10/19/2024 8:40 AM CDT T3, FREE Routine 10/19/2024 4:05 AM CDT T4, FREE Routine 10/19/2024 4:05 AM CDT THYROID FUNCTION CASCADE Routine 10/19/2024 4:05 AM CDT EGFR Routine 10/19/2024 4:05 AM CDT DIFFERENTIAL AUTO Routine 10/19/2024 4:0 5 AM CDT CRP (ACUTE PHASE) Routine 10/19/2024 4:0 5 AM CDT COMPREHENSIVE METABOLIC PANEL Routine 10/19/2024 4:05 AM CDT CBC WITH AUTO DIFFERENTIAL Routine 10/19/2024 4:05 AM CDT TRANSTHORACIC ECHO (TTE) COMPLETE W DOPPLER/CF W CONTRAST Routine 10/18/2024 2:30 PM CDT ECG 12-LEAD Routine 10/18/2024 5:59 AM CDT DIFFERENTIAL AUTO Routine 10/18/2024 4:4 2 AM CDT PHOSPHORUS Routine 10/18/2024 4:42 AM CDT MAGNESIUM Routine 10/18/2024 4:42 AM CDT CBC WITH AUTO DIFFERENTIAL Routine 10/18/2024 4:42 AM CDT IRON PROFILE W/ IBC Routine 10/18/2024 4 :42 AM CDT FERRITIN Routine 10/18/2024 4:42 AM CDT LEGIONELLA ANTIGEN, URINE Routine 10/18/2024 12:24 AM CDT STREP PNEUMONIAE AG, URINE Routine 10/18/2024 12:24 AM CDT PNEUMONIA PCR WITH AEROBIC CULTURE AND GRAM STAIN Routine 10/18/2024 12:24 AM CDT EGFR Routine 10/17/2024 9:59 PM CDT COMPREHENSIVE METABOLIC PANEL Routine 10/17/2024 9:59 PM CDT PHOSPHORUS Routine 10/17/2024 9:59 PM CDT PTH Routine 10/17/2024 9:59 PM CDT VITAMIN D 25 HYDROXY Routine 10/17/2024 9:59 PM CDT CALCIUM, IONIZED Routine 10/17/2024 9:59 PM CDT TROPONIN T HIGH-SENSITIVITY 6-HOUR Timed 10/17/2024 9:59 PM CDT MRSA ONLY (STAPHYLOCOCCUS AUREUS) PCR Routine 10/17/2024 8:16 PM CDT SEPSIS LACTATE WITH REFLEX Timed 10/17/2024 5:47 PM CDT TROPONIN T HIGH-SENSITIVITY 4-HR Timed 10/17/2024 5:47 PM CDT POC BLOOD GAS AND CHEMISTRIES, VENOUS Routine 10/17/2024 4:27 PM CDT NM PULMONARY PERFUSION IMAGING ED 10/17/2024 3:49 PM CDT BLOOD CULTURE STAT 10/17/2024 3:10 PM CDT BLOOD CULTURE STAT 10/17/2024 3:10 PM CDT PRO B-TYPE NATRIURETIC PEPTIDE Timed 10/17/2024 2:55 PM CDT SEPSIS LACTATE WITH REFLEX STAT 10/17/2024 2:55 PM CDT TROPONIN T HIGH-SENSITIVITY 2-HOUR Timed 10/17/2024 2:55 PM CDT INFLUENZA A/B, RSV, AND COVID-19 PCR STAT 10/17/2024 2:55 PM CDT XR CHEST 1 VIEW ED 10/17/2024 1:25 PM CDT ECG 12-LEAD STAT 10/17/2024 1:15 PM CDT MAGNESIUM STAT 10/17/2024 1:12 PM CDT EGFR STAT 10/17/2024 1:12 PM CDT DIFFERENTIAL AUTO STAT 10/17/2024 1:12 PM CDT TROPONIN T HIGH-SENSITIVITY SERIES (BASELINE, 2HR, 4HR, 6HR) STAT 10/17/2024 1:12 PM CDT CBC WITH AUTO DIFFERENTIAL STAT 10/17/2024 1:12 PM CDT COMPREHENSIVE METABOLIC PANEL STAT 10/17/2024 1:12 PM CDT from Last 3 Months Results * Electrocardiogram Report (12/22/2024 3:43 PM CDT) us Orlando Porter MD ECG ORDERABLES Final Re sult * POCUS Duplex Bilateral Vessel Mapping For HD Access (12/15/2024 1:56 PM CDT) Narrative RAD_PACS_POCUS_[facility] - 12/15/2024 1:56 PM CDT This procedure was performed and interpreted by the provider. Please refer to the provider's procedure/OR operative note for results. us Jon Pope MD PhD POCUS ORDERABLES Final Re sult RAD_PACS_POCUS_[facility] * (ABNORMAL) Pulmonary Function Test - (11/22/2024 4:36 PM CDT) FVC POST 4.06 3.52 - 6.12 L [facility] FEV1 POST 1.95(A) 2.52 - 4.52 L [facility] [id number] 48.03(A) 60.59 - 86.91 % [facility] [id number]% POST 0.68(A) 1.02 - 4.65 L/s [facility] PEF POST 3.36(A) 6.67 - 10.66 L/s [facility] DLCOc SB 8.46(A) 23.68 - 37.54 ml/(min*mm Hg) [facility] DLCO/VA PRE 1.70(A) 2.75 - 4.77 ml/(min*mm Hg*L) [facility] VA 4.99(A) 7.99 - 7.99 L [facility] TLC PRE 8.85 6.99 - 9.29 L [facility] VC PRE 3.88(A) 3.98 - 5.82 L [facility] IC PRE 2.83(A) 3.76 - 3.76 L [facility] FRC PL PRE 6.02(A) 3.05 - 5.02 L [facility] ERV PRE 1.05(A) 1.14 - 1.14 L [facility] RV PRE 4.97(A) 2.22 - 3.57 L [facility] VTG 6.09 L [facility] RAW PRE 4.02(A) 3.06 - 3.06 cmH2O*s/L [facility] FVC PRE 3.88 3.52 - 6.12 L [facility] FEV1 PRE 1.94(A) 2.52 - 4.[address] [facility] [id number] 50.01(A) 60.59 - 86.91 % [facility] KUH70-90% PRE 0.49(A) 1.02 - 4.65 L/s [facility] PEF PRE 3.40(A) 6.67 - 10.66 L/s [facility] Anatomical Region Laterality Modality PFT 11/22/2024 3:45 PM CDT Narrative 11/23/2024 8:28 AM CDT Spirometry demonstrates a moderate obstructive ventilatory defect without any significant change post-bronchodilator therapy. Lung volumes demonstrate evidence of air trapping. DLCO is reduced compatible with diffusion impairment. Findings can be seen with emphysema or other pulmonary vascular or pulmonary parenchymal process. Suggest clinical correlation. Electronically signed by Temo Chaves MD, [facility] Pulmonary and Critical Care Medicine [facility] Rigoberto Croft MD PFT ORDERABLES Final Result * (ABNORMAL) eGFR (10/27/2024 2:44 AM CDT) eGFR 8(L) >=60 mL/min/1. 73 m2 Comment: Interpretive Data Reference Interval Normal >/= 90 mL/min/1.73m2 Mildly decreased* 60 - 89 mL/min/1.73m2 Mildly to moderately decreased 45 - 59 mL/min/1.73m2 Moderately to severely decreased 30 - 44 mL/min/1.73m2 Severely decreased 15 - 29 mL/min/1.73m2 Kidney Failure < 15 mL/min/1.73m2 *Relative to young adult level Estimated glomerular filtration rate is determined by the 2020 CKD-EPI equation recommended by the National Kidney Foundation (A Unifying Approach to GFR Estimation: Recommendations of the NKF-ASK Task Force on Reassessing the Inclusion of Race in Diagnosing Kidney Disease, JASN 2020). The CKD-EPI equation should not be used for patients with unstable renal function and has not been validated in children and those over 70. Current interpretive data was last reviewed 2021. Blood 10/27/2024 2:44 AM CDT 10/27/2024 2:57 AM CDT Carmen Walter MD LAB BLOOD ORDERABLES Fin al Result [facility] [address] [facility] Department [place] [address] * (ABNORMAL) Differential, auto (10/27/2024 2:44 AM CDT) Pathologist [facility] Neutrophil abs 24.2(H) 1.5 - 6.5 K/cumm Imm gran abs 1.2(H) 0.0 - 0.1 K/cumm [facility] Lymphocyte abs 1.9 0.8 - 3.3 K/cumm [facility] Monocyte abs 1.3(H) 0.2 - 0.8 K/cumm [facility] Eosinophil abs 0.1 0.0 - 0.5 K/cumm [facility] Basophil abs 0.1 0.0 - 0.1 K/cumm [facility] Neutrophil pct 84.2 % [facility] Comment: Interpretive Data Percent cell count reference ranges are not reported, since discordance with absolute values may lead to misinterpretation of CBC data. Current Interpretive Data was last revised on 2017. Imm gran pct 4.1 % [facility] Comment: Interpretive Data Percent cell count reference ranges are not reported, since discordance with absolute values may lead to misinterpretation of CBC data. Current Interpretive Data was last revised on 2017. Lymphocyte pct 6.5 % [facility] Comment: Interpretive Data Percent cell count reference ranges are not reported, since discordance with absolute values may lead to misinterpretation of CBC data. Current Interpretive Data was last revised on 2017. Monocyte pct 4.5 % [facility] Comment: Interpretive Data Percent cell count reference ranges are not reported, since discordance with absolute values may lead to misinterpretation of CBC data. Current Interpretive Data was last revised on 2017. Eosinophil pct 0.2 % [facility] Comment: Interpretive Data Percent cell count reference ranges are not reported, since discordance with absolute values may lead to misinterpretation of CBC data. Current Interpretive Data was last revised on 2017. Basophil pct 0.5 % [facility] Comment: Interpretive Data Percent cell count reference ranges are not reported, since discordance with absolute values may lead to misinterpretation of CBC data. Current Interpretive Data was last revised on 2017. Blood 10/27/2024 2:4 4 AM CDT 10/27/2024 2:56 AM CDT Barbara Collins MD LAB BLO OD ORDERABLES Final Result Performing Organization Address [facility] Co de Phone Number [place] [id number] [facility] Department of Laboratories [place], [place] [phone] * (ABNORMAL) CBC with auto differential (10/27/2024 2:44 AM CDT) WBC 28.7(H) 3.8 - 9.9 K/cumm Hgb 10.1(L) 13.0 - 17.5 g/dL [facility] Hct 34.7(L) 38.9 - 50.3 % [facility] Plt 298 150 - 400 K/cumm [facility] MPV 10.3 9.1 - 12.3 fL [facility] RBC 3.44(L) 4.30 - 5.80 M/cumm [facility] MCV 100.9(H) 81.3 - 96.4 fL [facility] MCH 29.4 27.1 - 33.3 pg [facility] MCHC 29.1(L) 32.3 - 35.7 g/dL [facility] RDW CV 16.1(H) 11.1 - 14.9 % [facility] RDW SD 58.0(H) 35.7 - 48.1 fL [facility] NRBC abs 0.04(H) 0.00 - 0.01 K/cumm [facility] Blood 10/27/2024 2:44 AM CDT 10/27/2024 2:56 AM CDT Barbara Collins MD LAB BLO OD ORDERABLES Final Result Performing Organization Address City/[facility] Co de Phone Number [facility] [address] [place] [address] * (ABNORMAL) Basic metabolic panel (10/27/2024 2:44 AM CDT) [facility] Sodium 136 135 - 145 mmol/L Potassium, pl 4.8 3.3 - 4.9 mmol/L [facility] Chloride 100 97 - 110 mmol/L [facility] CO2 17(L) 22 - 32 mmol/L [facility] Anion gap 19(H) 2 - 15 mmol/L [facility] BUN 93(H) 6 - 25 mg/dL [facility] Creatinine 6.56(H) 0.80 - 1.30 mg/dL [facility] Glucose 115 70 - 199 mg/dL [facility] Comment: Interpretive Data Fasting glucose >/= 126 mg/dl is diagnostic for diabetes. Fasting is defined as no caloric intake for at least 8 hours. Fasting glucose between 100 mg/dl to 125 mg/dl is diagnostic of prediabetes. In a patient with classic symptoms of hyperglycemia or hyperglycemic crisis, a random glucose >/= 200 mg/dl is diagnostic for diabetes. In the absence of unequivocal hyperglycemia, results should be confirmed by repeat testing. The classification and Diagnosis of Diabetes Diabetes Care 202; 46: S19-S40. Current interpretive data was last revised 2022. Calcium 8.2(L) 8.5 - 10.3 mg/dL [facility] Blood 10/27/2024 2:44 AM CDT 10/27/2024 2:57 AM CDT Carmen Walter MD LAB BLOOD ORDERABLES Fin al Result [address] [place] [address] * (ABNORMAL) eGFR (10/26/2024 2:55 AM CDT) [facility] eGFR 9(L) >=60 mL/min/1. 73 m2 Comment: Interpretive Data Reference Interval Normal >/= 90 mL/min/1.73m2 Mildly decreased* 60 - 89 mL/min/1.73m2 Mildly to moderately decreased 45 - 59 mL/min/1.73m2 Moderately to severely decreased 30 - 44 mL/min/1.73m2 Severely decreased 15 - 29 mL/min/1.73m2 Kidney Failure < 15 mL/min/1.73m2 *Relative to young adult level Estimated glomerular filtration rate is determined by the 2020 CKD-EPI equation recommended by the National Kidney Foundation (A Unifying Approach to GFR Estimation: Recommendations of the NKF-ASK Task Force on Reassessing the Inclusion of Race in Diagnosing Kidney Disease, JASN 2020). The CKD-EPI equation should not be used for patients with unstable renal function and has not been validated in children and those over 70. Current interpretive data was last reviewed 2021. Blood 10/26/2024 2:55 AM CDT 10/26/2024 3:31 AM CDT us Uday Jones MD LAB BLOOD ORDERABLES Final Result [place] [id number] [facility] Department [place] [address] * (ABNORMAL) Differential, auto (10/26/2024 2:55 AM CDT) Pathologist [facility] Neutrophil abs 23.2(H) 1.5 - 6.5 K/cumm Imm gran abs 1.5(H) 0.0 - 0.1 K/cumm [facility] Lymphocyte abs 2.2 0.8 - 3.3 K/cumm [facility] Monocyte abs 1.2(H) 0.2 - 0.8 K/cumm [facility] Eosinophil abs 0.0 0.0 - 0.5 K/cumm [facility] Basophil abs 0.1 0.0 - 0.1 K/cumm [facility] Neutrophil pct 82.2 % [facility] Comment: Interpretive Data Percent cell count reference ranges are not reported, since discordance with absolute values may lead to misinterpretation of CBC data. Current Interpretive Data was last revised on 2017. Imm gran pct 5.3 % [facility] Comment: Interpretive Data Percent cell count reference ranges are not reported, since discordance with absolute values may lead to misinterpretation of CBC data. Current Interpretive Data was last revised on 2017. Lymphocyte pct 7.7 % [facility] Comment: Interpretive Data Percent cell count reference ranges are not reported, since discordance with absolute values may lead to misinterpretation of CBC data. Current Interpretive Data was last revised on 2017. Monocyte pct 4.4 % [facility] Comment: Interpretive Data Percent cell count reference ranges are not reported, since discordance with absolute values may lead to misinterpretation of CBC data. Current Interpretive Data was last revised on 2017. Eosinophil pct 0.1 % [facility] Comment: Interpretive Data Percent cell count reference ranges are not reported, since discordance with absolute values may lead to misinterpretation of CBC data. Current Interpretive Data was last revised on 2017. Basophil pct 0.3 % [facility] Comment: Interpretive Data Percent cell count reference ranges are not reported, since discordance with absolute values may lead to misinterpretation of CBC data. Current Interpretive Data was last revised on 2017. Blood 10/26/2024 2:55 AM CDT 10/26/2024 3:32 AM CDT Barbara Collins MD LAB BLO OD ORDERABLES Final Result [facility] [address] [facility] Department of Laboratories [place], [place] [phone] * (ABNORMAL) CBC with auto differential (10/26/2024 2:55 AM CDT) WBC 28.2(H) 3.8 - 9.9 K/cumm Hgb 9.7(L) 13.0 - 17.5 g/dL [facility] Hct 30.2(L) 38.9 - 50.3 % [facility] Plt 414(H) 150 - 400 K/cumm [facility] MPV 9.7 9.1 - 12.3 fL [facility] RBC 3.22(L) 4.30 - 5.80 M/cumm [facility] MCV 93.8 81.3 - 96.4 fL [facility] MCH 30.1 27.1 - 33.3 pg [facility] MCHC 32.1(L) 32.3 - 35.7 g/dL [facility] RDW CV 15.5(H) 11.1 - 14.9 % [facility] RDW SD 52.6(H) 35.7 - 48.1 fL [facility] NRBC abs 0.02(H) 0.00 - 0.01 K/cumm [facility] Blood 10/26/2024 2:55 AM CDT 10/26/2024 3:32 AM CDT Barbara Collins MD LAB BLO OD ORDERABLES Final Result [facility] [address] [facility] Department [place] [address] * (ABNORMAL) Basic metabolic panel (10/26/2024 2:55 AM CDT) Sodium 139 135 - 145 mmol/L Potassium, pl 4.7 3.3 - 4.9 mmol/L [facility] Chloride 98 97 - 110 mmol/L [facility] CO2 28 22 - 32 mmol/L [facility] Anion gap 13 2 - 15 mmol/L [facility] BUN 79(H) 6 - 25 mg/dL [facility] Creatinine 5.97(H) 0.80 - 1.30 mg/dL [facility] Glucose 107 70 - 199 mg/dL [facility] Comment: Interpretive Data Fasting glucose >/= 126 mg/dl is diagnostic for diabetes. Fasting is defined as no caloric intake for at least 8 hours. Fasting glucose between 100 mg/dl to 125 mg/dl is diagnostic of prediabetes. In a patient with classic symptoms of hyperglycemia or hyperglycemic crisis, a random glucose >/= 200 mg/dl is diagnostic for diabetes. In the absence of unequivocal hyperglycemia, results should be confirmed by repeat testing. The classification and Diagnosis of Diabetes Diabetes Care 2021; 46: S19-S40. Current interpretive data was last revised 2022. Calcium 9.1 8.5 - 10.3 mg/dL [facility] Blood 10/26/2024 2:55 AM CDT 10/26/2024 3:31 AM CDT us Uday Jones MD LAB BLOOD ORDERABLES Final Result [facility] [address] [facility] Department [place] [address] * CT Chest Abdomen Pelvis WO Contrast (10/25/2024 5:43 PM CDT) Anatomical Region Laterality Modality Body N/A Computed Tomogra phy 10/25/2024 6:25 PM CDT Narrative 10/25/2024 6:31 PM CDT EXAM DESCRIPTION: CT CHEST ABDOMEN PELVIS WO CONTRAST REASON FOR STUDY: Sepsis, Leukocytosis with pneumoniae;Sepsis; Leukocytosis Sepsis, Leukocytosis with pneumoniae;Sepsis; Leukocytosis Hx: prostatectomy TECHNIQUE: CT scan of the chest, abdomen, and pelvis performed without intravenous and without oral contrast using helical scanning technique. Reconstructed coronal and sagittal MPR images reviewed. All images stored on PACS. Automated exposure control was used as a dose optimization technique for this examination. COMPARISON: 10/20/2024 FINDINGS: The sensitivity for detection of visceral lesions is diminished without the use of intravenous contrast. CHEST LUNGS: Mild emphysematous changes are seen of the upper lungs. Some coarse subpleural opacities are noted particularly on the right most likely representing scarring and chronic lung changes. This is similar to the prior study without clear evidence change. PLEURA: No effusion. No pneumothorax. MEDIASTINUM/CECY: No identified masses or abnormal nodes. HEART: Cardiomegaly is noted. No pericardial effusion is seen. CORONARY ARTERY CALCIFICATION: Yes VASCULATURE CHEST: No thoracic aortic aneurysm. AXILLA: No adenopathy. CHEST WALL: No masses. No subcutaneous air. HARDWARE/LINES/TUBES: None. MUSCULOSKELETAL CHEST: No significant abnormality. ABDOMEN/PELVIS LIVER: Normal size. No identified cystic or solid masses. No cysts. GALLBLADDER: High density material in the gallbladder may represent contrast or small stones. The gallbladder otherwise appears unremarkable BILE DUCTS: No intrahepatic or extrahepatic ductal dilatation. SPLEEN: Normal size. No focal lesions. PANCREAS: No identified cystic or solid masses. No significant calcifications. No adjacent inflammation or peripancreatic fluid collections. Pancreatic duct not dilated. ADRENALS: Normal. KIDNEYS/URINARY TRACT: The kidneys are markedly atrophic. Bladder is decompressed. GI: No dilated bowel loops. No obvious wall thickening. Normal appendix. No significant diverticular disease. PERITONEUM: No ascites or free air. RETROPERITONEUM: No mass or adenopathy. REPRODUCTIVE: No significant abnormality. VASCULATURE ABDOMEN: Diffuse atherosclerotic calcification is seen. No aneurysm is identified. MUSCULOSKELETAL ABDOMEN PELVIS: Advanced degenerative changes are seen of the lower lumbar spine. A grade 2 anterolisthesis of L5 on S1 is noted. This appears to result from facet arthropathy. OTHER: 9 cm 5 cm probable sebaceous cyst is again seen of the anterior abdominal wall. This is unchanged from previous. IMPRESSION: Coarse lung opacities are noted particularly on the right which appear unchanged from previous. Chronic changes are favored.. Cardiomegaly. Atrophic kidneys. Grade 2 anterolisthesis of L5 on S1. THIS IS AN ELECTRONICALLY VERIFIED FINAL REPORT 10/25/2024 6:31 PM - Electronically signed by Jonathan Romero M.D. T: Report ID: [id number] Reading Location: [place] [address] Procedure Note Jonathan Romero MD - 10/25/2024 EXAM DESCRIPTION: CT CHEST ABDOMEN PELVIS WO CONTRAST REASON FOR STUDY: Sepsis, Leukocytosis with pneumoniae;Sepsis;Leukocytosis Sepsis, Leukocytosis with pneumoniae;Sepsis; Leukocytosis Hx:prostatectomy TECHNIQUE: CT scan of the chest, abdomen, and pelvis performed without intravenous and without oral contrast using helical scanning technique. Reconstructed coronal and sagittal MPR images reviewed. All images storedon PACS. Automated exposure control was used as a dose optimizationtechnique for this examination. COMPARISON: 10/20/2024 FINDINGS: The sensitivity for detection of visceral lesions is diminished without the use of intravenous contrast. CHEST LUNGS: Mild emphysematous changes are seen of the upper lungs. Somecoarse subpleural opacities are noted particularly on the right most likely representing scarring and chronic lung changes. This is similar to theprior study without clear evidence change. PLEURA: No effusion. No pneumothorax. MEDIASTINUM/CECY: No identified masses or abnormal nodes. HEART: Cardiomegaly is noted. No pericardial effusion is seen. CORONARY ARTERY CALCIFICATION: Yes VASCULATURE CHEST: No thoracic aortic aneurysm. AXILLA: No adenopathy. CHEST WALL: No masses. No subcutaneous air. HARDWARE/LINES/TUBES: None. MUSCULOSKELETAL CHEST: No significant abnormality. ABDOMEN/PELVIS LIVER: Normal size. No identified cystic or solid masses. No cysts. GALLBLADDER: High density material in the gallbladder may representcontrast or small stones. The gallbladder otherwise appears unremarkable BILE DUCTS: No intrahepatic or extrahepatic ductal dilatation. SPLEEN: Normal size. No focal lesions. PANCREAS: No identified cystic or solid masses. No significant calcifications. No adjacent inflammation or peripancreatic fluidcollections. Pancreatic duct not dilated. ADRENALS: Normal. KIDNEYS/URINARY TRACT: The kidneys are markedly atrophic. Bladder is decompressed. GI: No dilated bowel loops. No obvious wall thickening. Normalappendix. No significant diverticular disease. PERITONEUM: No ascites or free air. RETROPERITONEUM: No mass or adenopathy. REPRODUCTIVE: No significant abnormality. VASCULATURE ABDOMEN: Diffuse atherosclerotic calcification is seen. No aneurysm is identified. MUSCULOSKELETAL ABDOMEN PELVIS: Advanced degenerative changes are seenof the lower lumbar spine. A grade 2 anterolisthesis of L5 on S1 is noted. This appears to result from facet arthropathy. OTHER: 9 cm 5 cm probable sebaceous cyst is again seen of the anterior abdominal wall. This is unchanged from previous. IMPRESSION: Coarse lung opacities are noted particularly on the right which appear unchanged from previous. Chronic changes are favored.. Cardiomegaly. Atrophic kidneys. Grade 2 anterolisthesis of L5 on S1. THIS IS AN ELECTRONICALLY VERIFIED FINAL REPORT 10/25/2024 6:31 PM - Electronically signed by Jonathan Romero M.D. T: Report ID: [id number] Reading Location: [place] [address] us Jah Vargas MD IM CT PROCEDURES Final Resu lt * (ABNORMAL) Protime-INR (10/25/2024 1:04 PM CDT) PT 15.8(H) 12.0 - 14.6 sec Comment:Ref Range High INR 1.2 0.9 - 1.2 [facility] Comment: Ref Range High Interpretive data Oral anticoagulant therapeutic ranges: Venous thromboembolism prophylaxis or treatment: 2.0-3.0 CARDIOLOGY Standard range: 2.0-3.0 High-intensity range: 2.5-3.5 Refer to indication-specific guidelines for appropriate target ranges for prosthetic heart valve replacement. Current interpretive data was last revised on 2019. Blood 10/25/2024 1:04 PM CDT 10/25/2024 1:13 PM CDT Narrative [facility] - 10/25/2024 1:23 PM CDT Baseline prior to apixaban initiation. Carlos Castro MD LAB BLOOD ORDERABLES F inal Result Performing Organization Address [facility] Co de Phone Number [address] [place], [place] [phone] * (ABNORMAL) Hepatic function panel (10/25/2024 1:04 PM CDT) Pathologist [facility] Bilirubin, total 0.4 0.1 - 1.2 mg/dL Bilirubin, direct 0.2 0.1 - 0.3 mg/dL [facility] Protein, pl 6.4(L) 6.5 - 8.5 g/dL [facility] Albumin 3.5 3.5 - 5.0 g/dL [facility] Alk phos 73 40 - 130 Units/L [facility] ALT 30 7 - 55 Units/L [facility] AST 23 10 - 50 Units/L [facility] Blood 10/25/2024 1:04 PM CDT 10/25/2024 1:13 PM CDT Narrative [facility] - 10/25/2024 1:36 PM CDT Baseline prior to apixaban initiation. Carlos Castro MD LAB BLOOD ORDERABLES F inal Result Performing Organization Address [facility] Co de Phone Number [address] [place], [place] [phone] * XR Chest 1 View (10/25/2024 12:25 PM CDT) Anatomical Region Laterality Modality Body, Chest N/A Computed Radiogr aphy 10/25/2024 12:2 8 PM CDT Narrative 10/25/2024 12:32 PM CDT EXAM DESCRIPTION: XR CHEST 1 VIEW REASON FOR STUDY: Dialysis catheter placement today. TECHNIQUE: Frontal radiographic view of the chest COMPARISON: Chest radiograph 10/22/2024 FINDINGS: LUNGS/PLEURAE: Patchy interstitial opacities in the right lung are grossly similar. Faint interstitial opacities in the left lung are unchanged. No large pleural effusion. There is no pneumothorax. HEART/MEDIASTINUM: Heart projects borderline enlarged. Stable mediastinal contours. HARDWARE/LINES/TUBES: Right internal jugular vein catheter tips terminate at the superior cavoatrial junction. BONES: No acute findings. IMPRESSION: Right internal jugular vein catheter tips terminate at the superior cavoatrial junction. No pneumothorax. Patchy interstitial opacities in the right lung and faint interstitial opacities in the left lung are grossly similar. THIS IS AN ELECTRONICALLY VERIFIED FINAL REPORT 10/25/2024 12:32 PM - Electronically signed by Olievrio GREENE T: Report ID: [id number] Reading Location: [place] [address] Procedure Note Oliverio Steinberg MD - 10/25/2024 EXAM DESCRIPTION: XR CHEST 1 VIEW REASON FOR STUDY: Dialysis catheter placement today. TECHNIQUE: Frontal radiographic view of the chest COMPARISON: Chest radiograph 10/22/2024 FINDINGS: LUNGS/PLEURAE: Patchy interstitial opacities in the right lungare grossly similar. Faint interstitial opacities in the left lung areunchanged. No large pleural effusion. There is no pneumothorax. HEART/MEDIASTINUM: Heart projects borderline enlarged. Stablemediastinal contours. HARDWARE/LINES/TUBES: Right internal jugular vein catheter tipsterminate at the superior cavoatrial junction. BONES: No acute findings. IMPRESSION: Right internal jugular vein catheter tips terminate at the superior cavoatrial junction. No pneumothorax. Patchy interstitial opacities in the right lung and faint interstitial opacities in the left lung are grossly similar. THIS IS AN ELECTRONICALLY VERIFIED FINAL REPORT 10/25/2024 12:32 PM - Electronically signed by Oliverio Steinberg M.D. LB T: Report ID: [id number] Reading Location: [id number] Lucius Jauregui MD IMG XR PROCEDURES Final Result * INSERT TUNNELED CV CATH W/PORT OR PUMP >[id number] (10/25/2024 11:38 AM CDT) Anatomical Region Laterality Modality X-Ray Angiograph y Narrative 10/25/2024 11:39 AM CDT Please see OpNote for result. Nusrat SALCIDO CV CARDIAC CATH PROCEDURES Final Result * Potassium (10/25/2024 10:20 AM CDT) Potassium, pl 3.9 3.3 - 4.9 mmol/L Comment:Delta - Results Revi ewed Blood 10/25/2024 10:2 0 AM CDT 10/25/2024 10:32 AM CDT Lucius Jauregui MD LAB BLOOD ORDERABLES Final Resul t [facility] [address] [facility] Department [place] [address] * Heparin anti factor Xa activity (10/25/2024 5:09 AM CDT) Anti Factor Xa 0.53 IUnits/mL Comment: Interpretive Data Enoxaparin therapeutic range (peak): VTE treatment, Q12hr dosin.60-1.00 IUnits/mL VTE treatment, Q24hr dosin.00-2.00 IUnits/mL Q24hr dosing for renal impairment (CrCl <30 mL/min): 0.60-1.00 IUnits/mL VTE prevention: 0.10-0.40 IUnits/mL - Anti-Xa therapeutic ranges apply to blood samples drawn 4 hours after last dose (peak). - Unfractionated heparin (UFH) therapeutic range: 0.30-0.70 IUnits/mL - Direct factor Xa inhibitors (rivaroxaban, apixaban): Results must be interpreted qualitatively. No activity detected suggests little anticoagulant activity. - In severe antithrombin deficiency, anti-Xa measurement may be inaccurate. - Interpretive guidelines developed in adult populations. Interpretive guidelines for pediatric patients have not been rigorously defined. - Current interpretive data was last revised on 2019. Blood 10/25/2024 5:09 AM CDT 10/25/2024 5:19 AM CDT us Bonita Johnson PAYROLL MANAGER LAB BLOOD ORDERABLES Cherise l Result Performing Organization Address [facility] Co de Phone Number PAVEL [address] [place] [address] * (ABNORMAL) eGFR (10/25/2024 3:26 AM CDT) Pathologist [facility] eGFR 11(L) >=60 mL/min/1. 73 m2 Comment: Interpretive Data Reference Interval Normal >/= 90 mL/min/1.73m2 Mildly decreased* 60 - 89 mL/min/1.73m2 Mildly to moderately decreased 45 - 59 mL/min/1.73m2 Moderately to severely decreased 30 - 44 mL/min/1.73m2 Severely decreased 15 - 29 mL/min/1.73m2 Kidney Failure < 15 mL/min/1.73m2 *Relative to young adult level Estimated glomerular filtration rate is determined by the 2020 CKD-EPI equation recommended by the National Kidney Foundation (A Unifying Approach to GFR Estimation: Recommendations of the NKF-ASK Task Force on Reassessing the Inclusion of Race in Diagnosing Kidney Disease, JASN 2020). The CKD-EPI equation should not be used for patients with unstable renal function and has not been validated in children and those over 70. Current interpretive data was last reviewed 2021. Blood 10/25/2024 3:26 AM CDT 10/25/2024 3:37 AM CDT us Carmen Walter MD LAB BLOOD ORDERABLES Fin al Result Performing Organization Address City/[facility]/ZIP Co de Phone Number YUNIOR[address] [place] [address] * (ABNORMAL) Differential, auto (10/25/2024 3:26 AM CDT) Pathologist [facility] Neutrophil abs 24.9(H) 1.5 - 6.5 K/cumm Imm gran abs 2.8(H) 0.0 - 0.1 K/cumm [facility] Lymphocyte abs 1.8 0.8 - 3.3 K/cumm [facility] Monocyte abs 1.0(H) 0.2 - 0.8 K/cumm [facility] Eosinophil abs 0.0 0.0 - 0.5 K/cumm [facility] Basophil abs 0.2(H) 0.0 - 0.1 K/cumm [facility] Neutrophil pct 81.3 % [facility] Comment: Interpretive Data Percent cell count reference ranges are not reported, since discordance with absolute values may lead to misinterpretation of CBC data. Current Interpretive Data was last revised on 2017. Imm gran pct 9.1 % [facility] Comment: Interpretive Data Percent cell count reference ranges are not reported, since discordance with absolute values may lead to misinterpretation of CBC data. Current Interpretive Data was last revised on 2017. Lymphocyte pct 5.8 % [facility] Comment: Interpretive Data Percent cell count reference ranges are not reported, since discordance with absolute values may lead to misinterpretation of CBC data. Current Interpretive Data was last revised on 2017. Monocyte pct 3.1 % [facility] Comment: Interpretive Data Percent cell count reference ranges are not reported, since discordance with absolute values may lead to misinterpretation of CBC data. Current Interpretive Data was last revised on 2017. Eosinophil pct 0.1 % [facility] Comment: Interpretive Data Percent cell count reference ranges are not reported, since discordance with absolute values may lead to misinterpretation of CBC data. Current Interpretive Data was last revised on 2017. Basophil pct 0.6 % [facility] Comment: Interpretive Data Percent cell count reference ranges are not reported, since discordance with absolute values may lead to misinterpretation of CBC data. Current Interpretive Data was last revised on 2017. Blood 10/25/2024 3:26 AM CDT 10/25/2024 3:38 AM CDT us Matteo Julian MD LAB BLOOD ORDERABLES Cherise l Result Performing Organization Address [facility]/ZIP Co de Phone Number PAVEL [address] [place] [address] * (ABNORMAL) CBC with auto differential (10/25/2024 3:26 AM CDT) [facility] WBC 30.5(H) 3.8 - 9.9 K/cumm Hgb 10.0(L) 13.0 - 17.5 g/dL [facility] Hct 32.0(L) 38.9 - 50.3 % [facility] Plt 285 150 - 400 K/cumm [facility] MPV 9.9 9.1 - 12.3 fL [facility] RBC 3.35(L) 4.30 - 5.80 M/cumm [facility] MCV 95.5 81.3 - 96.4 fL [facility] MCH 29.9 27.1 - 33.3 pg [facility] MCHC 31.3(L) 32.3 - 35.7 g/dL [facility] RDW CV 15.6(H) 11.1 - 14.9 % [facility] RDW SD 53.7(H) 35.7 - 48.1 fL [facility] NRBC abs 0.02(H) 0.00 - 0.01 K/cumm [facility] Blood 10/25/2024 3:26 AM CDT 10/25/2024 3:38 AM CDT us Barbara Collins MD LAB BLO OD ORDERABLES Final Result [facility] [address] [place] [address] * (ABNORMAL) Basic metabolic panel (10/25/2024 3:26 AM CDT) [facility] Sodium 137 135 - 145 mmol/L Potassium, pl 5.6(H) 3.3 - 4.9 mmol/L [facility] Comment:Hemolyzed; Potassium value may be falsely elevated by as much as 1.0 mmol/L. Suggest redraw and reanalysis. Chloride 100 97 - 110 mmol/L [facility] CO2 20(L) 22 - 32 mmol/L [facility] Anion gap 17(H) 2 - 15 mmol/L [facility] BUN 78(H) 6 - 25 mg/dL [facility] Creatinine 5.26(H) 0.80 - 1.30 mg/dL [facility] Glucose 128 70 - 199 mg/dL [facility] Comment: Interpretive Data Fasting glucose >/= 126 mg/dl is diagnostic for diabetes. Fasting is defined as no caloric intake for at least 8 hours. Fasting glucose between 100 mg/dl to 125 mg/dl is diagnostic of prediabetes. In a patient with classic symptoms of hyperglycemia or hyperglycemic crisis, a random glucose >/= 200 mg/dl is diagnostic for diabetes. In the absence of unequivocal hyperglycemia, results should be confirmed by repeat testing. The classification and Diagnosis of Diabetes Diabetes Care 202; 46: S19-S40. Current interpretive data was last revised 2022. Calcium 8.4(L) 8.5 - 10.3 mg/dL [facility] Blood 10/25/2024 3:26 AM CDT 10/25/2024 3:37 AM CDT Carmen Walter MD LAB BLOOD ORDERABLES Fin al Result [facility] [address] [facility] Department [place] [address] * Heparin anti factor Xa activity (10/24/2024 11:39 PM CDT) [facility] Anti Factor Xa 0.68 IUnits/mL Comment: Interpretive Data Enoxaparin therapeutic range (peak): VTE treatment, Q12hr dosin.60-1.00 IUnits/mL VTE treatment, Q24hr dosin.00-2.00 IUnits/mL Q24hr dosing for renal impairment (CrCl <30 mL/min): 0.60-1.00 IUnits/mL VTE prevention: 0.10-0.40 IUnits/mL - Anti-Xa therapeutic ranges apply to blood samples drawn 4 hours after last dose (peak). - Unfractionated heparin (UFH) therapeutic range: 0.30-0.70 IUnits/mL - Direct factor Xa inhibitors (rivaroxaban, apixaban): Results must be interpreted qualitatively. No activity detected suggests little anticoagulant activity. - In severe antithrombin deficiency, anti-Xa measurement may be inaccurate. - Interpretive guidelines developed in adult populations. Interpretive guidelines for pediatric patients have not been rigorously defined. - Current interpretive data was last revised on 2019. Blood 10/24/2024 11:3 9 PM CDT 10/25/2024 12:06 AM CDT Milana Maloney MD LAB BLOOD ORDERABLE S Final Result Performing Organization Address City/State/ZIP Co mn Phone Number [facility] [address] [facility] Department [place] [address] * (ABNORMAL) Heparin anti factor Xa activity (10/24/2024 2:55 PM CDT) Anti Factor Xa >1.10(C) IUnits/mL Comment: Critical value. Results called to and read back by: Critical Result called to and read back by [id number], DATE: 2024-10-24 15:38:22 BY: [id number] Interpretive Data Enoxaparin therapeutic range (peak): VTE treatment, Q12hr dosin.60-1.00 IUnits/mL VTE treatment, Q24hr dosin.00-2.00 IUnits/mL Q24hr dosing for renal impairment (CrCl <30 mL/min): 0.60-1.00 IUnits/mL VTE prevention: 0.10-0.40 IUnits/mL - Anti-Xa therapeutic ranges apply to blood samples drawn 4 hours after last dose (peak). - Unfractionated heparin (UFH) therapeutic range: 0.30-0.70 IUnits/mL - Direct factor Xa inhibitors (rivaroxaban, apixaban): Results must be interpreted qualitatively. No activity detected suggests little anticoagulant activity. - In severe antithrombin deficiency, anti-Xa measurement may be inaccurate. - Interpretive guidelines developed in adult populations. Interpretive guidelines for pediatric patients have not been rigorously defined. - Current interpretive data was last revised on 2019. Blood 10/24/2024 2:55 PM CDT 10/24/2024 3:10 PM CDT Milana Maloney MD LAB BLOOD ORDERABLE S Final Result Performing Organization Address [facility] de Phone Number [address] [address] * Hepatitis B core antibody, total Blood (10/24/2024 2:55 PM CDT) [facility] Hep B core IgG/IgM Nonreactive Nonreactive Comment:Testing performed by : [facility], [address] [place] [address]., [id number] Blood 10/24/2024 2:55 PM CDT 10/24/2024 5:23 PM CDT Result [facility] Milana Maloney MD LAB MICROBIOLOGY - GENERAL ORDERABLES Final Result Performing Organization Address [facility] de Phone Number [address] [address] * Hepatitis B (HBV) DNA PCR, quantitative Blood (10/24/2024 2:55 PM CDT) [facility] HBV DNA Result Not Detected [facility] Comment: The quantifiable range of this assay is 10 IU/mL to 1,000,000,000 IU/mL (1.00 log IU/mL to 9.00 log IU/mL). Testing was performed by the [employer] [id number] HBV Test version 2.0 ([employer] Testing performed at [facility] Current Interpretive Data was last revised on 2021. Testing performed by: [facility], [address] [facility] [place]., [address] Blood 10/24/2024 2:55 PM CDT 10/24/2024 7:39 PM CDT Milana Maloney MD LAB MICROBIOLOGY - GENERAL ORDERABLES Final Result Performing Organization Address [facility] Co de Phone Number [address] [address] [facility] * Hepatitis B Surface Antigen Blood (10/24/2024 2:55 PM CDT) HepBsAg Nonreactive Nonreactive Blood 10/24/2024 2:55 PM CDT 10/24/2024 3:10 PM CDT Milana Maloney MD LAB MICROBIOLOGY - GENERAL ORDERABLES Final Result Performing Organization Address [facility] de Phone Number [address] [address] * ECG 12 lead (10/24/2024 8:10 AM CDT) Pathologist [facility] Ventricular Rate EKG/Min 83 BPM [facility] QRS-Interval (MSEC) 152 ms [facility] QT-Interval (MSEC) 420 ms [facility] QTc 493 ms [facility] R Nunn -86 degrees [facility] T Nunn 85 degrees [facility] Diagnosis 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 ([id number]) on 10/24/2024 2:50:52 PM [facility] 10/24/2024 8:10 AM CDT 10/24/2024 2:50 PM CDT August Roger MD ECG ORDERABLES Final R esult [facility] * (ABNORMAL) eGFR (10/24/2024 5:46 AM CDT) eGFR 9(L) >=60 mL/min/1. 73 m2 Comment: Interpretive Data Reference Interval Normal >/= 90 mL/min/1.73m2 Mildly decreased* 60 - 89 mL/min/1.73m2 Mildly to moderately decreased 45 - 59 mL/min/1.73m2 Moderately to severely decreased 30 - 44 mL/min/1.73m2 Severely decreased 15 - 29 mL/min/1.73m2 Kidney Failure < 15 mL/min/1.73m2 *Relative to young adult level Estimated glomerular filtration rate is determined by the 2020 CKD-EPI equation recommended by the National Kidney Foundation (A Unifying Approach to GFR Estimation: Recommendations of the NKF-ASK Task Force on Reassessing the Inclusion of Race in Diagnosing Kidney Disease, JASN 2020). The CKD-EPI equation should not be used for patients with unstable renal function and has not been validated in children and those over 70. Current interpretive data was last reviewed 2021. Blood 10/24/2024 5:46 AM CDT 10/24/2024 6:08 AM CDT Carmen Walter MD LAB BLOOD ORDERABLES Fin al Result Performing Organization Address City/[facility]/ZIP Co de Phone Number PAVEL [facility] [facility] Department [place] [address] * Heparin anti factor Xa activity (10/24/2024 5:46 AM CDT) Anti Factor Xa 0.71 IUnits/mL Comment: Ref Range High Interpretive Data Enoxaparin therapeutic range (peak): VTE treatment, Q12hr dosin.60-1.00 IUnits/mL VTE treatment, Q24hr dosin.00-2.00 IUnits/mL Q24hr dosing for renal impairment (CrCl <30 mL/min): 0.60-1.00 IUnits/mL VTE prevention: 0.10-0.40 IUnits/mL - Anti-Xa therapeutic ranges apply to blood samples drawn 4 hours after last dose (peak). - Unfractionated heparin (UFH) therapeutic range: 0.30-0.70 IUnits/mL - Direct factor Xa inhibitors (rivaroxaban, apixaban): Results must be interpreted qualitatively. No activity detected suggests little anticoagulant activity. - In severe antithrombin deficiency, anti-Xa measurement may be inaccurate. - Interpretive guidelines developed in adult populations. Interpretive guidelines for pediatric patients have not been rigorously defined. - Current interpretive data was last revised on 2019. Blood 10/24/2024 5:46 AM CDT 10/24/2024 6:08 AM CDT Milana Maloney MD LAB BLOOD ORDERABLE S Final Result [place] [id number] [facility] Department [place] [address] * (ABNORMAL) CBC with auto differential (10/24/2024 5:46 AM CDT) WBC 40.6(H) 3.8 - 9.9 K/cumm Hgb 9.7(L) 13.0 - 17.5 g/dL [facility] Hct 31.2(L) 38.9 - 50.3 % [facility] Plt 453(H) 150 - 400 K/cumm [facility] MPV 9.6 9.1 - 12.3 fL [facility] RBC 3.33(L) 4.30 - 5.80 M/cumm [facility] MCV 93.7 81.3 - 96.4 fL [facility] MCH 29.1 27.1 - 33.3 pg [facility] MCHC 31.1(L) 32.3 - 35.7 g/dL [facility] RDW CV 15.5(H) 11.1 - 14.9 % [facility] RDW SD 52.6(H) 35.7 - 48.1 fL [facility] NRBC abs 0.04(H) 0.00 - 0.01 K/cumm [facility] Blood 10/24/2024 5:46 AM CDT 10/24/2024 6:08 AM CDT Barbara Collins MD LAB BLO OD ORDERABLES Final Result [facility] [address] [facility] Department [place] [address] * (ABNORMAL) Manual Differential (10/24/2024 5:46 AM CDT) Differential Manual Cells Counted 100 [facility] Neutrophil abs 35.3(H) 1.5 - 6.5 K/cumm [facility] Imm gran abs 2.0(H) 0.0 - 0.1 K/cumm [facility] Lymphocyte abs 2.0 0.8 - 3.3 K/cumm [facility] Monocyte abs 1.2(H) 0.2 - 0.8 K/cumm [facility] Neutrophil pct 87.0 % [facility] Comment: Interpretive Data Percent cell count reference ranges are not reported, since discordance with absolute values may lead to misinterpretation of CBC data. Current Interpretive Data was last revised on 2017. Lymphocyte pct 5.0 % [facility] Comment: Interpretive Data Percent cell count reference ranges are not reported, since discordance with absolute values may lead to misinterpretation of CBC data. Current Interpretive Data was last revised on 2017. Monocyte pct 3.0 % [facility] Comment: Interpretive Data Percent cell count reference ranges are not reported, since discordance with absolute values may lead to misinterpretation of CBC data. Current Interpretive Data was last revised on 2017. Metamyelocyte pct 5.0(H) 0.0 - 0.0 % [facility] RBC morphology Present(A) [facility] Hypochromasia 3-7/HPF(A) [facility] Poikilocytosis Moderate(A) [facility] Macrocytes 3-7/HPF(A) [facility] Elliptocytes 8-15/HPF(A) [facility] Platelet estimate Automated Count Confirmed [facility] Blood 10/24/2024 5:46 AM CDT 10/24/2024 6:08 AM CDT Matteo Julian MD LAB BLOOD ORDERABLES Cherise l Result Performing Organization Address City/[facility]/ZIP Co de Phone Number [address] [place] [address] * (ABNORMAL) Basic metabolic panel (10/24/2024 5:46 AM CDT) [facility] Sodium 141 135 - 145 mmol/L Potassium, pl 4.9 3.3 - 4.9 mmol/L [facility] Chloride 99 97 - 110 mmol/L [facility] CO2 26 22 - 32 mmol/L [facility] Anion gap 16(H) 2 - 15 mmol/L [facility] BUN 102(H) 6 - 25 mg/dL [facility] Creatinine 6.14(H) 0.80 - 1.30 mg/dL [facility] Glucose 122 70 - 199 mg/dL [facility] Comment: Interpretive Data Fasting glucose >/= 126 mg/dl is diagnostic for diabetes. Fasting is defined as no caloric intake for at least 8 hours. Fasting glucose between 100 mg/dl to 125 mg/dl is diagnostic of prediabetes. In a patient with classic symptoms of hyperglycemia or hyperglycemic crisis, a random glucose >/= 200 mg/dl is diagnostic for diabetes. In the absence of unequivocal hyperglycemia, results should be confirmed by repeat testing. The classification and Diagnosis of Diabetes Diabetes Care 2021; 46: S19-S40. Current interpretive data was last revised 2022. Calcium 9.2 8.5 - 10.3 mg/dL [facility] Blood 10/24/2024 5:46 AM CDT 10/24/2024 6:08 AM CDT Carmen Walter MD LAB BLOOD ORDERABLES Fin al Result Performing Organization Address [facility] Co de Phone Number [address] [place] [address] * Heparin anti factor Xa activity (10/23/2024 5:11 PM CDT) Anti Factor Xa 0.62 IUnits/mL Comment: Interpretive Data Enoxaparin therapeutic range (peak): VTE treatment, Q12hr dosin.60-1.00 IUnits/mL VTE treatment, Q24hr dosin.00-2.00 IUnits/mL Q24hr dosing for renal impairment (CrCl <30 mL/min): 0.60-1.00 IUnits/mL VTE prevention: 0.10-0.40 IUnits/mL - Anti-Xa therapeutic ranges apply to blood samples drawn 4 hours after last dose (peak). - Unfractionated heparin (UFH) therapeutic range: 0.30-0.70 IUnits/mL - Direct factor Xa inhibitors (rivaroxaban, apixaban): Results must be interpreted qualitatively. No activity detected suggests little anticoagulant activity. - In severe antithrombin deficiency, anti-Xa measurement may be inaccurate. - Interpretive guidelines developed in adult populations. Interpretive guidelines for pediatric patients have not been rigorously defined. - Current interpretive data was last revised on 2019. Blood 10/23/2024 5:11 PM CDT 10/23/2024 5:15 PM CDT us Jah Vargas MD LAB BLOOD ORDERABLES Final R esult Performing Organization Address City/[facility]/ZIP Co de Phone Number [address] [place], [place] [id number] * (ABNORMAL) BUN (10/23/2024 2:56 PM CDT) BUN 93(H) 6 - 25 mg/dL Blood 10/23/2024 2:56 PM CDT 10/23/2024 3:09 PM CDT Narrative PAVEL - 10/23/2024 3:25 PM CDT Pre-Dialysis us Carmen Walter MD LAB BLOOD ORDERABLES Fin al Result [address] [place] [address] * Blood culture Blood (10/23/2024 10:33 AM CDT) Report Final Report: No growth Comment:Testing performed by : [facility], [address] [place]., [address] Blood 10/23/2024 10:3 3 AM CDT 10/23/2024 4:02 PM CDT Narrative PAVEL ROSADO - 10/28/2024 7:00 AM CDT From a different site than #1. 1. Blood cultures are incubated for 4 days on a continuously monitored blood culture system. The first report of a negative culture is issued within 24 hours of receipt of the specimen in the laboratory. 2. Positive culture results are reported as soon as they are detected. 3. The most important factor for detection of microbes in the setting of bloodstream infection is the volume of blood submitted for culture. Failure to collect an optimal blood volume can result in false negative blood cultures. 4. For pediatric patients, the recommended blood volume to collect follows a weight based strategy. See the electronic test catalog for collection instructions. 5. For positive blood cultures, a rapid molecular test may be performed for organism identification using the [employer] blood culture identification panel for gram positive (BCID-GP) and gram negative (BCID-GN) organisms. This nucleic acid amplification test detects microbial DNA in positive blood culture broth. This assay has been cleared by the [place] Food and Drug Administration and its performance characteristics have been verified by the [facility]biology [facility]. For questions about this culture, contact the Microbiology Laboratory at [phone]. Interpretive data was last revised on 24. Milana Maloney MD LAB MICROBIOLOGY - GENERAL ORDERABLES Final Result [facility] [address] [facility] Department [place] [address] * Heparin anti factor Xa activity (10/23/2024 10:26 AM CDT) Anti Factor Xa 0.52 IUnits/mL Comment: Interpretive Data Enoxaparin therapeutic range (peak): VTE treatment, Q12hr dosin.60-1.00 IUnits/mL VTE treatment, Q24hr dosin.00-2.00 IUnits/mL Q24hr dosing for renal impairment (CrCl <30 mL/min): 0.60-1.00 IUnits/mL VTE prevention: 0.10-0.40 IUnits/mL - Anti-Xa therapeutic ranges apply to blood samples drawn 4 hours after last dose (peak). - Unfractionated heparin (UFH) therapeutic range: 0.30-0.70 IUnits/mL - Direct factor Xa inhibitors (rivaroxaban, apixaban): Results must be interpreted qualitatively. No activity detected suggests little anticoagulant activity. - In severe antithrombin deficiency, anti-Xa measurement may be inaccurate. - Interpretive guidelines developed in adult populations. Interpretive guidelines for pediatric patients have not been rigorously defined. - Current interpretive data was last revised on 2019. Blood 10/23/2024 10:2 6 AM CDT 10/23/2024 10:39 AM CDT us Chas Angulo MD LAB BLOOD ORDERABLES Final Result PAVEL ROSADO [address] [facility] Department [place] [address] * Blood culture Blood (10/23/2024 10:26 AM CDT) Report Final Report: No growth Comment:Testing performed by : [facility], [address] [facility], [place]., [address] Blood 10/23/2024 10:2 6 AM CDT 10/23/2024 4:02 PM CDT Narrative PAVEL ROSADO - 10/28/2024 7:00 AM CDT 1. Blood cultures are incubated for 4 days on a continuously monitored blood culture system. The first report of a negative culture is issued within 24 hours of receipt of the specimen in the laboratory. 2. Positive culture results are reported as soon as they are detected. 3. The most important factor for detection of microbes in the setting of bloodstream infection is the volume of blood submitted for culture. Failure to collect an optimal blood volume can result in false negative blood cultures. 4. For pediatric patients, the recommended blood volume to collect follows a weight based strategy. See the electronic test catalog for collection instructions. 5. For positive blood cultures, a rapid molecular test may be performed for organism identification using the [employer] blood culture identification panel for gram positive (BCID-GP) and gram negative (BCID-GN) organisms. This nucleic acid amplification test detects microbial DNA in positive blood culture broth. This assay has been cleared by the [place] Food and Drug Administration and its performance characteristics have been verified by the [facility] Microbiology Laboratory. For questions about this culture, contact the Microbiology Laboratory at [phone]. Interpretive data was last revised on 24. Milana Maloney MD LAB MICROBIOLOGY - GENERAL ORDERABLES Final Result PAVEL [address] [facility] Department [place] [address] * (ABNORMAL) eGFR (10/23/2024 4:53 AM CDT) eGFR 11(L) >=60 mL/min/1. 73 m2 Comment: Interpretive Data Reference Interval Normal >/= 90 mL/min/1.73m2 Mildly decreased* 60 - 89 mL/min/1.73m2 Mildly to moderately decreased 45 - 59 mL/min/1.73m2 Moderately to severely decreased 30 - 44 mL/min/1.73m2 Severely decreased 15 - 29 mL/min/1.73m2 Kidney Failure < 15 mL/min/1.73m2 *Relative to young adult level Estimated glomerular filtration rate is determined by the 2020 CKD-EPI equation recommended by the National Kidney Foundation (A Unifying Approach to GFR Estimation: Recommendations of the NKF-ASK Task Force on Reassessing the Inclusion of Race in Diagnosing Kidney Disease, JASN 2020). The CKD-EPI equation should not be used for patients with unstable renal function and has not been validated in children and those over 70. Current interpretive data was last reviewed 2021. Blood 10/23/2024 4:53 AM CDT 10/23/2024 5:05 AM CDT Orlando Mclean NP LAB BLOOD ORDERABLES Fi nal Result [facility] [facility] Department [place] [address] * (ABNORMAL) Differential, auto (10/23/2024 4:53 AM CDT) Neutrophil abs 32.2(H) 1.5 - 6.5 K/cumm Imm gran abs 4.2(H) 0.0 - 0.1 K/cumm [facility] Lymphocyte abs 1.6 0.8 - 3.3 K/cumm [facility] Monocyte abs 1.0(H) 0.2 - 0.8 K/cumm [facility] Eosinophil abs 0.0 0.0 - 0.5 K/cumm [facility] Basophil abs 0.0 0.0 - 0.1 K/cumm [facility] Neutrophil pct 82.4 % [facility] Comment: Interpretive Data Percent cell count reference ranges are not reported, since discordance with absolute values may lead to misinterpretation of CBC data. Current Interpretive Data was last revised on 2017. Imm gran pct 10.8 % [facility] Comment: Interpretive Data Percent cell count reference ranges are not reported, since discordance with absolute values may lead to misinterpretation of CBC data. Current Interpretive Data was last revised on 2017. Lymphocyte pct 4.2 % [facility] Comment: Interpretive Data Percent cell count reference ranges are not reported, since discordance with absolute values may lead to misinterpretation of CBC data. Current Interpretive Data was last revised on 2017. Monocyte pct 2.6 % [facility] Comment: Interpretive Data Percent cell count reference ranges are not reported, since discordance with absolute values may lead to misinterpretation of CBC data. Current Interpretive Data was last revised on 2017. Eosinophil pct 0.0 % [facility] Comment: Interpretive Data Percent cell count reference ranges are not reported, since discordance with absolute values may lead to misinterpretation of CBC data. Current Interpretive Data was last revised on 2017. Basophil pct 0.0 % PAVEL Comment: Interpretive Data Percent cell count reference ranges are not reported, since discordance with absolute values may lead to misinterpretation of CBC data. Current Interpretive Data was last revised on 2017. Blood 10/23/2024 4:53 AM CDT 10/23/2024 5:05 AM CDT us Matteo Julian MD LAB BLOOD ORDERABLES Cherise l Result Performing Organization Address City/[facility] Co de Phone Number PAVEL [address] [facility] Department [place] [address] * Heparin anti factor Xa activity (10/23/2024 4:53 AM CDT) Pathologist [facility] Anti Factor Xa 0.16 IUnits/mL Comment: Ref Range Low Interpretive Data Enoxaparin therapeutic range (peak): VTE treatment, Q12hr dosin.60-1.00 IUnits/mL VTE treatment, Q24hr dosin.00-2.00 IUnits/mL Q24hr dosing for renal impairment (CrCl <30 mL/min): 0.60-1.00 IUnits/mL VTE prevention: 0.10-0.40 IUnits/mL - Anti-Xa therapeutic ranges apply to blood samples drawn 4 hours after last dose (peak). - Unfractionated heparin (UFH) therapeutic range: 0.30-0.70 IUnits/mL - Direct factor Xa inhibitors (rivaroxaban, apixaban): Results must be interpreted qualitatively. No activity detected suggests little anticoagulant activity. - In severe antithrombin deficiency, anti-Xa measurement may be inaccurate. - Interpretive guidelines developed in adult populations. Interpretive guidelines for pediatric patients have not been rigorously defined. - Current interpretive data was last revised on 2019. Blood 10/23/2024 4:53 AM CDT 10/23/2024 5:05 AM CDT us Sukumar Pink MD LAB BLOOD ORDERABLES Fi nal Result [facility]EL [address] [facility] Department [place] [address] * (ABNORMAL) CBC with auto differential (10/23/2024 4:53 AM CDT) [facility] WBC 39.1(H) 3.8 - 9.9 K/cumm Hgb 9.5(L) 13.0 - 17.5 g/dL [facility] Hct 29.5(L) 38.9 - 50.3 % [facility] Plt 436(H) 150 - 400 K/cumm [facility] MPV 9.3 9.1 - 12.3 fL [facility] RBC 3.20(L) 4.30 - 5.80 M/cumm [facility] MCV 92.2 81.3 - 96.4 fL [facility] MCH 29.7 27.1 - 33.3 pg [facility] MCHC 32.2(L) 32.3 - 35.7 g/dL [facility] RDW CV 15.2(H) 11.1 - 14.9 % [facility] RDW SD 50.6(H) 35.7 - 48.1 fL [facility] NRBC abs 0.05(H) 0.00 - 0.01 K/cumm [facility] Blood 10/23/2024 4:53 AM CDT 10/23/2024 5:05 AM CDT us Barbara Collins MD LAB BLO OD ORDERABLES Edited Result - Final [facility] [address] [facility] Department [place] [address] * Manual Differential (10/23/2024 4:53 AM CDT) Pathologist [facility] Differential Auto RBC morphology Consistent with RBC Indicies [facility] Platelet estimate Automated Count Confirmed [facility] Blood 10/23/2024 4:53 AM CDT 10/23/2024 5:05 AM CDT us Matteo Julian MD LAB BLOOD ORDERABLES Cherise l Result Performing Organization Address [facility] Co de Phone Number [address] [address] * (ABNORMAL) Phosphorus (10/23/2024 4:53 AM CDT) [facility] Phosphorus, pl 5.0(H) 2.3 - 4.5 mg/dL Blood 10/23/2024 4:53 AM CDT 10/23/2024 5:05 AM CDT Orlando Mclean NP LAB BLOOD ORDERABLES Fi nal Result Performing Organization Address [facility] Co de Phone Number [address] [address] * Magnesium (10/23/2024 4:53 AM CDT) [facility] Magnesium 1.9 1.4 - 2.5 mg/dL Blood 10/23/2024 4:53 AM CDT 10/23/2024 5:05 AM CDT Orlando Mclean NP LAB BLOOD ORDERABLES Fi nal Result Performing Organization Address [facility] Co de Phone Number [address] [address] * (ABNORMAL) Comprehensive metabolic panel (10/23/2024 4:53 AM CDT) [facility] Sodium 140 135 - 145 mmol/L Potassium, pl 4.5 3.3 - 4.9 mmol/L [facility] Chloride 100 97 - 110 mmol/L [facility] CO2 24 22 - 32 mmol/L [facility] Anion gap 16(H) 2 - 15 mmol/L [facility] BUN 80(H) 6 - 25 mg/dL [facility] Creatinine 5.27(H) 0.80 - 1.30 mg/dL [facility] Glucose 140 70 - 199 mg/dL [facility] Comment: Interpretive Data Fasting glucose >/= 126 mg/dl is diagnostic for diabetes. Fasting is defined as no caloric intake for at least 8 hours. Fasting glucose between 100 mg/dl to 125 mg/dl is diagnostic of prediabetes. In a patient with classic symptoms of hyperglycemia or hyperglycemic crisis, a random glucose >/= 200 mg/dl is diagnostic for diabetes. In the absence of unequivocal hyperglycemia, results should be confirmed by repeat testing. The classification and Diagnosis of Diabetes Diabetes Care 2021; 46: S19-S40. Current interpretive data was last revised 2022. Calcium 8.5 8.5 - 10.3 mg/dL [facility] Bilirubin, total 0.3 0.1 - 1.2 mg/dL [facility] Protein, pl 5.8(L) 6.5 - 8.5 g/dL [facility] Albumin 3.0(L) 3.5 - 5.0 g/dL [facility] Alk phos 78 40 - 130 Units/L [facility] ALT 57(H) 7 - 55 Units/L [facility] AST 33 10 - 50 Units/L [facility] Blood 10/23/2024 4:53 AM CDT 10/23/2024 5:05 AM CDT us Orlando Mclean NP LAB BLOOD ORDERABLES nal Result [facility] Department [place] [address] * US Vein Mapping Duplex Upper Extremity Bilateral (10/22/2024 5:21 PM CDT) Anatomical Region Laterality Modality Vascular Bilateral Ultrasound 10/22/2024 4:17 PM CDT Narrative 10/25/2024 11:32 AM CDT Upper Extremity Vein Mapping Report Patient Name: LAMIN BETTS Account #: : 1950 (74y 8m) Gender: M Study Date: 10/22/2024 04:17:45 PM Accession #: [employer] Worker: Yocasta Hebert Quality: Adequate Ref Provider: PROCEDURES: Vascular Report: A non-invasive vascular imaging study of the bilateral upper extremity was performed to map the superficial veins for use as dialysis access using B- mode ultrasound, color flow, and spectral Doppler. INDICATIONS: Chronic kidney disease. COMPARISONS: No prior exams. VEINS: Right Value Left Value Rt Cephalic Vein Upper Arm Prx Dim 2.00 mm Lt Cephalic Vein Upper Arm Prx Dim 0.00 mm Rt Cephalic Vein Upper Arm Mid Dim 2.10 mm Lt Cephalic Vein Upper Arm Mid Dim 0.00 mm Rt Cephalic Vein Upper Arm Dst Dim 2.00 mm Lt Cephalic Vein Upper Arm Dst Dim 0.00 mm Rt Cephalic Vein Forearm Prx Dim 2.70 mm Lt Cephalic Vein Forearm Prx Dim 15.00 mm Rt Cephalic Vein Forearm Mid Dim 2.00 mm Lt Cephalic Vein Forearm Mid Dim THROMBOSED mm Rt Cephalic Vein Forearm Dst Dim 2.50 mm Lt Cephalic Vein Forearm Dst Dim THROMBOSED mm Rt Basilic Vein Upper Arm Prx Dim 0.00 mm Lt Basilic Vein Upper Arm Prx Dim 0.00 mm Rt Basilic Vein Upper Arm Mid Dim 3.00 mm Lt Basilic Vein Upper Arm Mid Dim 0.00 mm Rt Basilic Vein Upper Arm Dst Dim 2.90 mm Lt Basilic Vein Upper Arm Dst Dim 3.60 mm Rt Basilic Vein Forearm Prx Dim 0.00 mm Lt Basilic Vein Forearm Prx Dim THROMBOSED mm Rt Basilic Vein Forearm Mid Dim 0.00 mm Lt Basilic Vein Forearm Mid Dim THROMBOSED mm Rt Basilic Vein Forearm Dst Dim 0.00 mm ARTERIES: Right Value Left Value Rt Brach Trans Dim 5.50 mm Lt Brach Trans Dim 6.40 mm Rt Radial Trans Dim 1.80 mm Lt Radial Trans Dim 3.10 mm FINDINGS: Right: Negative for deep and superficial vein thrombosis in the right upper extremity. Normal venous outflow. The right brachial, radial, and ulnar arteries appear patent with multiphasic waveforms. RIGHT IJV HAS CENTRAL CATHETER, NOT ABLE TO VISUALIZE. RT AX VEIN 11.2 MM. Left: Negative for deep and superficial vein thrombosis in the left upper extremity. Superficial veins involved include the left mid forearm cephalic vein, distal forearm cephalic vein, proximal forearm basilic vein, mid forearm basilic vein and distal forearm basilic vein. The left brachial, radial, and ulnar arteries appear patent with multiphasic waveforms. LEFT ax VEIN 7.3 MM. CONCLUSIONS: 1. Left cephalic and basilic veins are thrombosed. Right cephalic and basilic vein are not sizable for fistula. ATTESTATION: I have reviewed and interpreted the pertinent images and measurements of this study. I attest to the conclusions in the final report that is provided above. Electronically Signed By: Lucius Jauregui MD 10/24/2024 7:41:03 AM CDT Procedure Note Lucius Jauregui MD - 10/25/2024 Upper Extremity Vein Mapping Report Patient Name: LAMIN BETTS Account #: : 1950 (74y 8m) Gender: M Study Date: 10/22/2024 04:17:45 PM Accession #: [employer] Worker: Yocasta Hebert Quality: Adequate Ref Provider: PROCEDURES: Vascular Report: A non-invasive vascular imaging study of the bilateralupper extremity was performed to map the superficial veins for use as dialysis accessusing B- mode ultrasound, color flow, and spectral Doppler. INDICATIONS: Chronic kidney disease. COMPARISONS: No prior exams. VEINS: Right Value Left Value Rt Cephalic Vein Upper Arm Prx Dim 2.00 mm Lt Cephalic Vein Upper Arm PrxDim 0.00 mm Rt Cephalic Vein Upper Arm Mid Dim 2.10 mm Lt Cephalic Vein Upper Arm MidDim 0.00 mm Rt Cephalic Vein Upper Arm Dst Dim 2.00 mm Lt Cephalic Vein Upper Arm DstDim 0.00 mm Rt Cephalic Vein Forearm Prx Dim 2.70 mm Lt Cephalic Vein Forearm Prx Dim15.00 mm Rt Cephalic Vein Forearm Mid Dim 2.00 mm Lt Cephalic Vein Forearm Mid DimTHROMBOSED mm Rt Cephalic Vein Forearm Dst Dim 2.50 mm Lt Cephalic Vein Forearm Dst DimTHROMBOSED mm Rt Basilic Vein Upper Arm Prx Dim 0.00 mm Lt Basilic Vein Upper Arm PrxDim 0.00 mm Rt Basilic Vein Upper Arm Mid Dim 3.00 mm Lt Basilic Vein Upper Arm MidDim 0.00 mm Rt Basilic Vein Upper Arm Dst Dim 2.90 mm Lt Basilic Vein Upper Arm DstDim 3.60 mm Rt Basilic Vein Forearm Prx Dim 0.00 mm Lt Basilic Vein Forearm Prx DimTHROMBOSED mm Rt Basilic Vein Forearm Mid Dim 0.00 mm Lt Basilic Vein Forearm Mid DimTHROMBOSED mm Rt Basilic Vein Forearm Dst Dim 0.00 mm ARTERIES: Right Value Left Value Rt Brach Trans Dim 5.50 mm Lt Brach Trans Dim 6.40 mm Rt Radial Trans Dim 1.80 mm Lt Radial Trans Dim 3.10 mm FINDINGS: Right: Negative for deep and superficial vein thrombosis in the rightupper extremity. Normal venous outflow. The right brachial, radial, and ulnar arteriesappear patent with multiphasic waveforms. RIGHT IJV HAS CENTRAL CATHETER, NOT ABLE TOVISUALIZE. RT AX VEIN 11.2 MM. Left: Negative for deep and superficial vein thrombosis in the left upperextremity. Superficial veins involved include the left mid forearm cephalic vein,distal forearm cephalic vein, proximal forearm basilic vein, mid forearm basilic vein anddistal forearm basilic vein. The left brachial, radial, and ulnar arteries appear patentwith multiphasic waveforms. LEFT ax VEIN 7.3 MM. CONCLUSIONS: 1. Left cephalic and basilic veins are thrombosed. Right cephalic andbasilic vein are not sizable for fistula. ATTESTATION: I have reviewed and interpreted the pertinent images and measurements ofthis study. I attest to the conclusions in the final report that is provided above. Electronically Signed By: Lucius Jauregui MD 10/24/2024 7:41:03 AM CDT Milana Maloney MD IMG US PROCEDURES F inal Result * XR Chest 1 View (10/22/2024 3:25 PM CDT) Anatomical Region Laterality Modality Body, Chest N/A Computed Radiogr aphy 10/22/2024 3:57 PM CDT Narrative 10/22/2024 4:33 PM CDT EXAM DESCRIPTION: XR CHEST 1 VIEW REASON FOR STUDY: right IJ temporary hemodialysis catheter placement right IJ temporary hemodialysis catheter placement TECHNIQUE: Single frontal radiographic view of the chest was acquired. COMPARISON: 10/22/2024 FINDINGS: LUNGS/PLEURA: Linear atelectasis in the lung bases. Right-sided interstitial infiltrate stable. There is no evidence of significant pleural effusion. HEART/MEDIASTINUM: Cardiomegaly. HARDWARE/LINES/TUBES: Right-sided venous catheter in place with distal tip superior vena cava. BONES: No acute findings. OTHER: No other significant finding. IMPRESSION: Right-sided venous catheter in place with distal tip superior vena cava. THIS IS AN ELECTRONICALLY VERIFIED FINAL REPORT 10/22/2024 4:33 PM - Electronically signed by Thomas Simons M.D. RW T: Report ID: [id number] Reading Location: [id number] Procedure Note Thomas Simons MD - 10/22/2024 EXAM DESCRIPTION: XR CHEST 1 VIEW REASON FOR STUDY: right IJ temporary hemodialysis catheter placement right IJ temporary hemodialysis catheter placement TECHNIQUE: Single frontal radiographic view of the chest was acquired. COMPARISON: 10/22/2024 FINDINGS: LUNGS/PLEURA: Linear atelectasis in the lung bases.Right-sided interstitial infiltrate stable. There is no evidence of significantpleural effusion. HEART/MEDIASTINUM: Cardiomegaly. HARDWARE/LINES/TUBES: Right-sided venous catheter in place with distaltip superior vena cava. BONES: No acute findings. OTHER: No other significant finding. IMPRESSION: Right-sided venous catheter in place with distal tip superior venacava. THIS IS AN ELECTRONICALLY VERIFIED FINAL REPORT 10/22/2024 4:33 PM - Electronically signed by Thomas Simons M.D. RW T: Report ID: [id number] Reading Location: [id number] Orlando Mclean NP IMG XR PROCEDURES Final Result * Critical Care (10/22/2024 3:18 PM CDT) Narrative Ricardo Hu MD - 10/22/2024 3:18 PM CDT Ricardo Hu MD 10/23/2024 9:59 AM Critical Care Performed by: Orlando Mclean NP Authorized by: Orlando Mclean NP CRITICAL CARE: Team: [facility] Shift: AM Level of Billing: Critical Care My time spent with this patient was 35 minutes: Critical Provider Statement: I have seen and examined the patient on this day of service. I have reviewed and confirmed the history, physical exam, laboratory and radiologic data as documented in the signed ICU note. I have reviewed and discussed my treatment plan with the ICU team and other medical/product support consultant staff, making frequent assessments and decisions regarding this patient's complex medical care. Critical Care time was exclusive of time spent performing separately billed procedures, treating other patients, and teaching. This time was in addition to and separate from critical care provided by other practitioners in my group on this day of service. Critical Care was necessary to treat or prevent imminent or life-threatening deterioration of the following conditions: I spent time reviewing and interpreting data from bedside monitors, laboratory results, and imaging, I spent time discussing the management of this critically ill patient with consultants and the medical staff and I spent time documenting in the medical record us Orlando Mclean PAYROLL MANAGER IN CLINIC/BEDSIDE ORDER SARAH Final Result * [place] INSJ NON-TUNNELED CENTRAL VENOUS CATH AGE 5 YR/> (10/22/2024 3:15 PM CDT) Narrative Ricardo Hu MD - 10/22/2024 3:15 PM CDT Ricardo Hu MD 10/23/2024 9:59 AM Central Line Insertion Date/Time: 10/22/2024 3:15 PM Performed by: Orlando Mclean NP Authorized by: Ricardo Hu MD [place] Protocol: RN Notified of Procedure: yes Informed consent: Risks, benefits, alternatives discussed Patient's stated name/ matches armband: Yes Allergies confirmed: yes Consent form signed, dated, timed; matches correct patient, intended procedure and site: Yes Imaging: Pertinent imaging reviewed, correctly oriented and match to patient identifiers Lab/Diag test results: Pertinent lab/diag tests reviewed and match to patient identifiers Supplies, devices and special equipment are available: yes Site/side marked: n/a Immediately prior to the procedure a time out was called: a verbal verification by the procedure participants confirmed correct patient identity, correct site/side marked and visible (if applicable); agreement on procedure to be done; and correct patient positioning Have non- routine considerations been assessed?: Yes Indications: Vascular access and dialysis Anesthesia (see MAR for exact dosage) Anesthesia method: Local infiltration Local anesthetic: Lidocaine 1% Patient position: Trendelenburg Skin preparation: Skin prepped with 2% chlorhexidine Provider preparation: Cap, full body drape, gloves, gown, mask and handwashing Location: Right subclavian Technique: Landmarks identified Ultrasound guidance: Pre-procedure diagnostic and real-time needle guidance Assessment: Blood return through all ports and placement verified by x-ray Catheter type: Dialysis catheter Catheter size: 13 ukrainian. Needle inserted, vein idenitified then guidewire inserted easily into vein: Yes Number of attempts: 1 Successful placement: Yes Catheter secured at (cm): 15 Catheter length (cm): 15 Line securement: Line sutured and dressing applied Patient tolerance: Patient tolerated the procedure well with no immediate complications Post Procedure Debrief: All guidewires, needles, sponges or other items are accounted for: yes Any special post procedure monitoring, testing or other considerations: yes (enter/request order) All specimens identified, labeled and matched to patient identification: n/a Responsible constitution party for transporting specimen(s) to lab determined: n/a Time spent performing this procedure are separate from any critical care billing time. us Ricardo Hu MD IN CLINIC/BEDSIDE ORDER SARAH Final Result * XR Chest 1 View (10/22/2024 12:00 PM CDT) Anatomical Region Laterality Modality Body, Chest N/A Computed Radiogr aphy 10/22/2024 2:34 PM CDT Narrative 10/22/2024 2:44 PM CDT EXAM DESCRIPTION: XR CHEST 1 VIEW REASON FOR STUDY: Shortness of breaths SOB x 5 days per order reasoning. TECHNIQUE: Frontal radiographic view(s) of the chest. COMPARISON: Chest radiograph dated 10/19/2024. FINDINGS: LUNGS: Mild patchy right basilar airspace and interstitial opacities. Bilateral diffuse increased interstitial lung markings compatible with chronic interstitial lung changes. No pleural effusion or pneumothorax. HEART/MEDIASTINUM: Stable cardiomegaly with prominence of the central pulmonary vasculature. Atherosclerotic vascular calcifications of the thoracic aorta are noted. LINES/TUBES: None. BONES: No acute osseous abnormality. IMPRESSION: Mild patchy right airspace and interstitial opacities which may be related to chronic interstitial disease; however superimposed infection is not excluded. Recommend clinical correlation and follow-up imaging as clinically warranted. THIS IS AN ELECTRONICALLY VERIFIED FINAL REPORT 10/22/2024 2:44 PM - Electronically signed by Orlando Doherty M.D. T: Report ID: [id number] Reading Location: [id number] Procedure Note Orlando Doherty, DO - 10/22/2024 EXAM DESCRIPTION: XR CHEST 1 VIEW REASON FOR STUDY: Shortness of breaths SOB x 5 days per order reasoning. TECHNIQUE: Frontal radiographic view(s) of the chest. COMPARISON: Chest radiograph dated 10/19/2024. FINDINGS: LUNGS: Mild patchy right basilar airspace and interstitial opacities. Bilateral diffuse increased interstitial lung markingscompatible with chronic interstitial lung changes. No pleural effusion orpneumothorax. HEART/MEDIASTINUM: Stable cardiomegaly with prominence of the central pulmonary vasculature. Atherosclerotic vascular calcifications of the thoracic aorta are noted. LINES/TUBES: None. BONES: No acute osseous abnormality. IMPRESSION: Mild patchy right airspace and interstitial opacities whichmay be related to chronic interstitial disease; however superimposed infection isnot excluded. Recommend clinical correlation and follow-up imaging asclinically warranted. THIS IS AN ELECTRONICALLY VERIFIED FINAL REPORT 10/22/2024 2:44 PM - Electronically signed by Orlando Doherty M.D. T: Report ID: [id number] Reading Location: [place] [address] us Milana Maloney MD IMG XR PROCEDURES F inal Result * (ABNORMAL) BUN (10/22/2024 11:48 AM CDT) BUN 100(H) 6 - 25 mg/dL Blood 10/22/2024 11:4 8 AM CDT 10/22/2024 12:38 PM CDT [facility] 1:07 PM CDT Pre-Dialysis us Uday Jones MD LAB BLOOD ORDERABLES Final Result [facility] [address] [facility] Department [place] [address] * (ABNORMAL) eGFR (10/22/2024 6:32 AM CDT) eGFR 9(L) >=60 mL/min/1. 73 m2 Comment: Interpretive Data Reference Interval Normal >/= 90 mL/min/1.73m2 Mildly decreased* 60 - 89 mL/min/1.73m2 Mildly to moderately decreased 45 - 59 mL/min/1.73m2 Moderately to severely decreased 30 - 44 mL/min/1.73m2 Severely decreased 15 - 29 mL/min/1.73m2 Kidney Failure < 15 mL/min/1.73m2 *Relative to young adult level Estimated glomerular filtration rate is determined by the 2020 CKD-EPI equation recommended by the National Kidney Foundation (A Unifying Approach to GFR Estimation: Recommendations of the NKF-ASK Task Force on Reassessing the Inclusion of Race in Diagnosing Kidney Disease, JASN 2020). The CKD-EPI equation should not be used for patients with unstable renal function and has not been validated in children and those over 70. Current interpretive data was last reviewed 2021. Blood 10/22/2024 6:32 AM CDT 10/22/2024 7:06 AM CDT us Uday Jones MD LAB BLOOD ORDERABLES Final Result [facility] [address] [facility] Department [place] [address] * Heparin anti factor Xa activity (10/22/2024 6:32 AM CDT) Anti Factor Xa <0.10 IUnits/mL Comment: Patient not on heparin at time of collection per [id number] (RN). 10/22/24 at 0845 by [id number]. Interpretive Data Enoxaparin therapeutic range (peak): VTE treatment, Q12hr dosin.60-1.00 IUnits/mL VTE treatment, Q24hr dosin.00-2.00 IUnits/mL Q24hr dosing for renal impairment (CrCl <30 mL/min): 0.60-1.00 IUnits/mL VTE prevention: 0.10-0.40 IUnits/mL - Anti-Xa therapeutic ranges apply to blood samples drawn 4 hours after last dose (peak). - Unfractionated heparin (UFH) therapeutic range: 0.30-0.70 IUnits/mL - Direct factor Xa inhibitors (rivaroxaban, apixaban): Results must be interpreted qualitatively. No activity detected suggests little anticoagulant activity. - In severe antithrombin deficiency, anti-Xa measurement may be inaccurate. - Interpretive guidelines developed in adult populations. Interpretive guidelines for pediatric patients have not been rigorously defined. - Current interpretive data was last revised on 2019. Blood 10/22/2024 6:32 AM CDT 10/22/2024 7:06 AM CDT us Matteo Julian MD LAB BLOOD ORDERABLES Cherise l Result Performing Organization Address [facility]/ZIP Co de Phone Number [address] [place] [address] * (ABNORMAL) CBC with auto differential (10/22/2024 6:32 AM CDT) [facility] WBC 36.2(H) 3.8 - 9.9 K/cumm Hgb 10.5(L) 13.0 - 17.5 g/dL [facility] Hct 34.0(L) 38.9 - 50.3 % [facility] Plt 514(H) 150 - 400 K/cumm [facility] MPV 9.4 9.1 - 12.3 fL [facility] RBC 3.63(L) 4.30 - 5.80 M/cumm [facility] MCV 93.7 81.3 - 96.4 fL [facility] MCH 28.9 27.1 - 33.3 pg [facility] MCHC 30.9(L) 32.3 - 35.7 g/dL [facility] RDW CV 15.3(H) 11.1 - 14.9 % [facility] RDW SD 52.9(H) 35.7 - 48.1 fL [facility] NRBC abs 0.16(H) 0.00 - 0.01 K/cumm [facility] Blood 10/22/2024 6:32 AM CDT 10/22/2024 7:06 AM CDT us Barbara Collins MD LAB BLO OD ORDERABLES Edited Result - Final [address] [address] * (ABNORMAL) Manual Differential (10/22/2024 6:32 AM CDT) [facility] Differential Manual Cells Counted 100 [facility] Neutrophil abs 29.7(H) 1.5 - 6.5 K/cumm [facility] Imm gran abs 4.0(H) 0.0 - 0.1 K/cumm [facility] Lymphocyte abs 2.5 0.8 - 3.3 K/cumm [facility] Monocyte abs 0.0(L) 0.2 - 0.8 K/cumm [facility] Neutrophil pct 82.0 % [facility] Comment: Interpretive Data Percent cell count reference ranges are not reported, since discordance with absolute values may lead to misinterpretation of CBC data. Current Interpretive Data was last revised on 2017. Lymphocyte pct 4.0 % [facility] Comment: Interpretive Data Percent cell count reference ranges are not reported, since discordance with absolute values may lead to misinterpretation of CBC data. Current Interpretive Data was last revised on 2017. Metamyelocyte pct 11.0(H) 0.0 - 0.0 % [facility] Variant lymph pct 3.0(H) 0.0 - 0.0 % [facility] RBC morphology Present(A) [facility] Hypochromasia 8-15/HPF(A) [facility] Anisocytosis Slight(A) [facility] Microcytes 8-15/HPF(A) [facility] Elliptocytes 3-7/HPF(A) [facility] Platelet estimate Automated Count Confirmed [facility] Blood 10/22/2024 6:32 AM CDT 10/22/2024 7:06 AM CDT us Matteo Julian MD LAB BLOOD ORDERABLES Cherise l Result [facility] [address] [facility] Department [place] [address] * (ABNORMAL) Basic metabolic panel (10/22/2024 6:32 AM CDT) [facility] Sodium 141 135 - 145 mmol/L Potassium, pl 4.4 3.3 - 4.9 mmol/L [facility] Chloride 98 97 - 110 mmol/L [facility] CO2 25 22 - 32 mmol/L [facility] Anion gap 18(H) 2 - 15 mmol/L [facility] BUN 110(H) 6 - 25 mg/dL [facility] Creatinine 6.30(H) 0.80 - 1.30 mg/dL [facility] Glucose 164 70 - 199 mg/dL [facility] Comment: Interpretive Data Fasting glucose >/= 126 mg/dl is diagnostic for diabetes. Fasting is defined as no caloric intake for at least 8 hours. Fasting glucose between 100 mg/dl to 125 mg/dl is diagnostic of prediabetes. In a patient with classic symptoms of hyperglycemia or hyperglycemic crisis, a random glucose >/= 200 mg/dl is diagnostic for diabetes. In the absence of unequivocal hyperglycemia, results should be confirmed by repeat testing. The classification and Diagnosis of Diabetes Diabetes Care 2021; 46: S19-S40. Current interpretive data was last revised 2022. Calcium 9.3 8.5 - 10.3 mg/dL [facility] Blood 10/22/2024 6:32 AM CDT 10/22/2024 7:06 AM CDT Uday Jones MD LAB BLOOD ORDERABLES Final Result [facility] [address] [facility] Department [place] [address] * ECG 12 lead (10/22/2024 12:45 AM CDT) Ventricular Rate EKG/Min [address] [facility] QRS-Interval (MSEC) [address] [facility] QT-Interval (MSEC) [address] [facility] QTc [address] [facility] R Nunn -[address] [facility] T Nunn [address] [facility] Diagnosis Atrial fibrillation Right bundle branch block Left anterior fascicular block Bifascicular block Abnormal ECG When compared with ECG of 19-OCT-2024 12:28, Vent. rate has decreased BY 46 BPM Right bundle branch block has replaced Non-specific intra-ventricul ar conduction block Confirmed by ASHLEY WYNNE M.D. ([id number]) on 10/23/2024 9:23:[address] [facility] 10/22/2024 12:4 5 AM CDT 10/23/2024 9:23 AM CDT us Michael Claire Hugo [employer] ECG ORDERABLES Final Re sult [facility] * (ABNORMAL) Lipid panel (10/21/2024 6:34 PM CDT) Cholesterol 124 30 - 199 mg/dL Comment: Interpretive Data Ages < or = 19 years Acceptable: <170 mg/dL Borderline high: 170-199 mg/dL High: >or= 200 mg/dL Ages > or = 20 years Desirable: <200 mg/dL Borderline high: 200-239 mg/dL High: >or= 240 mg/dL Literature References: 1. Expert Panel on Integrated Guidelines for Cardiovascular Health and Risk Reduction in Children and Adolescents. Pediatrics 2011;128:S213 2. NCEP Expert Panel. Circulation 2004;110:227 Current Interpretive Data was last revised on 2018. Triglycerides 229(H) <=149 mg/dL [facility] Comment: Interpretive Data Ages < or = 9 years Acceptable: <75 mg/dL Borderline high: 75-99 mg/dL High: >or= 100 mg/dL Ages 10 to 20 years Acceptable: <90 mg/dL Borderline high: 90-129 mg/dL High: >or= 130 mg/dL Ages > or = 20 years Desirable: <150 mg/dL Borderline high: 150-199 mg/dL High: 200-499 mg/dL Very high: >or= 499 mg/dL Literature References: 1. Expert Panel on Integrated Guidelines for Cardiovascular Health and Risk Reduction in Children and Adolescents. Pediatrics 2011;128:S213 2. NCEP Expert Panel. Circulation 2004;110:227 Current Interpretive Data was last revised on 2018. HDL 29(L) >=40 mg/dL [facility] Comment: Interpretive Data Ages < or = 19 years Acceptable: >45 mg/dL Borderline low: 40-45 mg/dL Low: <40 mg/dL Ages > or = 20 years Desirable: >or= 60 mg/dL Low: <40 mg/dL Literature References: 1. Expert Panel on Integrated Guidelines for Cardiovascular Health and Risk Reduction in Children and Adolescents. Pediatrics 2011;128:S213 2. NCEP Expert Panel. Circulation 2004;110:227 Current Interpretive Data was last revised on 2018. LDL, calculated 58 <=129 mg/dL [facility] Comment: Interpretive Data Ages < or = 19 years Acceptable: <110 mg/dL Borderline high: 110-129 mg/dL High: >or= 130 mg/dL Ages > or = 20 years Optimal: <100 mg/dL Near optimal: 100-129 mg/dL Borderline high: 130-159 mg/dL High: >160 mg/dL Calculated using the Zia LDL-C estimating equation. This equation was implemented on 2024. Prior to this date LDL-C was estimated using the Friedewald equation. Literature References: 1. Expert Panel on Integrated Guidelines for Cardiovascular Health and Risk Reduction in Children and Adolescents. Pediatrics 2011;128:S213 2. NCEP Expert Panel. Circulation 2004;110:227 3. Zia Vela et al. [place] Cardiol. 2019December 01;5(5):540-548. doi: 10.1001/jamacardio.2020.0013 Current Interpretive Data was last revised on 2024. Non-HDL Cholesterol 95 mg/dL [facility] Comment: Interpretive Data Ages < or = 19 years Acceptable: <120 mg/dL Borderline high: 120-144 mg/dL High: >145 mg/dL Ages > or = 20 years When triglycerides are >200 mg/dL, Non-HDL cholesterol is a secondary target of therapy with treatment goals that are 30 mg/dL greater than the LDL cholesterol target. Literature References: 1. Expert Panel on Integrated Guidelines for Cardiovascular Health and Risk Reduction in Children and Adolescents. Pediatrics 2011;128:S213 2. NCEP Expert Panel. Circulation 2004;110:227 Current Interpretive Data was last revised on 2018. Chol/HDL ratio 4 [facility] Blood 10/21/2024 6:34 PM CDT 10/21/2024 6:54 PM CDT us Milana Maloney MD LAB BLOOD ORDERABLE S Final Result [facility] [address] [facility] Department [place] [address] * INSERT TUNNELED CV CATH W/PORT OR PUMP >[id number] (10/21/2024 10:01 AM CDT) Anatomical Region Laterality Modality X-Ray Angiograph y Narrative 10/21/2024 10:08 AM CDT Please see OpNote for result. us Valentine De La Rosa NP CV CARDIAC CATH PROCEDURE S Final Result * (ABNORMAL) eGFR (10/21/2024 6:44 AM CDT) eGFR 8(L) >=60 mL/min/1. 73 m2 Comment: Interpretive Data Reference Interval Normal >/= 90 mL/min/1.73m2 Mildly decreased* 60 - 89 mL/min/1.73m2 Mildly to moderately decreased 45 - 59 mL/min/1.73m2 Moderately to severely decreased 30 - 44 mL/min/1.73m2 Severely decreased 15 - 29 mL/min/1.73m2 Kidney Failure < 15 mL/min/1.73m2 *Relative to young adult level Estimated glomerular filtration rate is determined by the 2020 CKD-EPI equation recommended by the National Kidney Foundation (A Unifying Approach to GFR Estimation: Recommendations of the NKF-ASK Task Force on Reassessing the Inclusion of Race in Diagnosing Kidney Disease, JASN 2020). The CKD-EPI equation should not be used for patients with unstable renal function and has not been validated in children and those over 70. Current interpretive data was last reviewed 2021. Blood 10/21/2024 6:44 AM CDT 10/21/2024 7:11 AM CDT us Matteo Julian MD LAB BLOOD ORDERABLES Cherise l Result [facility] [address] [facility] Department [place] [address] * Heparin anti factor Xa activity (10/21/2024 6:44 AM CDT) Anti Factor Xa <0.10 IUnits/mL Comment: patient no longer on heparin per lucila candelaria Interpretive Data Enoxaparin therapeutic range (peak): VTE treatment, Q12hr dosin.60-1.00 IUnits/mL VTE treatment, Q24hr dosin.00-2.00 IUnits/mL Q24hr dosing for renal impairment (CrCl <30 mL/min): 0.60-1.00 IUnits/mL VTE prevention: 0.10-0.40 IUnits/mL - Anti-Xa therapeutic ranges apply to blood samples drawn 4 hours after last dose (peak). - Unfractionated heparin (UFH) therapeutic range: 0.30-0.70 IUnits/mL - Direct factor Xa inhibitors (rivaroxaban, apixaban): Results must be interpreted qualitatively. No activity detected suggests little anticoagulant activity. - In severe antithrombin deficiency, anti-Xa measurement may be inaccurate. - Interpretive guidelines developed in adult populations. Interpretive guidelines for pediatric patients have not been rigorously defined. - Current interpretive data was last revised on 2019. Blood 10/21/2024 6:44 AM CDT 10/21/2024 7:06 AM CDT us Matteo Julian MD LAB BLOOD ORDERABLES Cherise still Result [facility] [address] [facility] Department of Laboratories [place], [place] [id number] * (ABNORMAL) CBC with auto differential (10/21/2024 6:44 AM CDT) Pathologist [facility] WBC 32.5(H) 3.8 - 9.9 K/cumm Hgb 9.6(L) 13.0 - 17.5 g/dL [facility] Hct 29.3(L) 38.9 - 50.3 % [facility] Plt 461(H) 150 - 400 K/cumm [facility] MPV 9.3 9.1 - 12.3 fL [facility] RBC 3.28(L) 4.30 - 5.80 M/cumm [facility] MCV 89.3 81.3 - 96.4 fL [facility] MCH 29.3 27.1 - 33.3 pg [facility] MCHC 32.8 32.3 - 35.7 g/dL [facility] RDW CV 15.0(H) 11.1 - 14.9 % [facility] RDW SD 49.5(H) 35.7 - 48.1 fL [facility] NRBC abs 0.10(H) 0.00 - 0.01 K/cumm [facility] Blood 10/21/2024 6:44 AM CDT 10/21/2024 7:06 AM CDT Barbara Collins MD LAB BLO OD ORDERABLES Edited Result - Final [facility] [address] [facility] Department [place] [address] * (ABNORMAL) Manual Differential (10/21/2024 6:44 AM CDT) Differential Manual Cells Counted 100 [facility] Neutrophil abs 26.3(H) 1.5 - 6.5 K/cumm [facility] Imm gran abs 1.6(H) 0.0 - 0.1 K/cumm [facility] Lymphocyte abs 3.2 0.8 - 3.3 K/cumm [facility] Monocyte abs 1.3(H) 0.2 - 0.8 K/cumm [facility] Neutrophil pct 81.0 % [facility] Comment: Interpretive Data Percent cell count reference ranges are not reported, since discordance with absolute values may lead to misinterpretation of CBC data. Current Interpretive Data was last revised on 2017. Lymphocyte pct 10.0 % [facility] Comment: Interpretive Data Percent cell count reference ranges are not reported, since discordance with absolute values may lead to misinterpretation of CBC data. Current Interpretive Data was last revised on 2017. Monocyte pct 4.0 % [facility] Comment: Interpretive Data Percent cell count reference ranges are not reported, since discordance with absolute values may lead to misinterpretation of CBC data. Current Interpretive Data was last revised on 2017. Metamyelocyte pct 2.0(H) 0.0 - 0.0 % [facility] Myelocyte pct 3.0(H) 0.0 - 0.0 % [facility] RBC morphology Consistent with RBC Indicies [facility] Platelet estimate Automated Count Confirmed [facility] Blood 10/21/2024 6:44 AM CDT 10/21/2024 7:06 AM CDT us Matteo Julian MD LAB BLOOD ORDERABLES Cherise cheko Result [facility] [address] [facility] Department [place] [address] * (ABNORMAL) Comprehensive metabolic panel (10/21/2024 6:44 AM CDT) Sodium 143 135 - 145 mmol/L Potassium, pl 4.4 3.3 - 4.9 mmol/L [facility] Chloride 100 97 - 110 mmol/L [facility] CO2 23 22 - 32 mmol/L [facility] Anion gap 20(H) 2 - 15 mmol/L [facility] BUN 122(H) 6 - 25 mg/dL [facility] Creatinine 6.64(H) 0.80 - 1.30 mg/dL [facility] Glucose 102 70 - 199 mg/dL [facility] Comment: Interpretive Data Fasting glucose >/= 126 mg/dl is diagnostic for diabetes. Fasting is defined as no caloric intake for at least 8 hours. Fasting glucose between 100 mg/dl to 125 mg/dl is diagnostic of prediabetes. In a patient with classic symptoms of hyperglycemia or hyperglycemic crisis, a random glucose >/= 200 mg/dl is diagnostic for diabetes. In the absence of unequivocal hyperglycemia, results should be confirmed by repeat testing. The classification and Diagnosis of Diabetes Diabetes Care 2021; 46: S19-S40. Current interpretive data was last revised 2022. Calcium 9.4 8.5 - 10.3 mg/dL [facility] Bilirubin, total 0.2 0.1 - 1.2 mg/dL [facility] Protein, pl 6.2(L) 6.5 - 8.5 g/dL [facility] Albumin 3.3(L) 3.5 - 5.0 g/dL [facility] Alk phos 103 40 - 130 Units/L [facility] ALT 143(H) 7 - 55 Units/L [facility] AST 112(H) 10 - 50 Units/L [facility] Blood 10/21/2024 6:44 AM CDT 10/21/2024 7:11 AM CDT us Matteo Julian MD LAB BLOOD ORDERABLES Cherise l Result Performing Organization Address City/[facility]/ZIP Co de Phone Number [id number] [place] [address] * (ABNORMAL) eGFR (10/20/2024 2:38 PM CDT) eGFR 8(L) >=60 mL/min/1. 73 m2 Comment: Interpretive Data Reference Interval Normal >/= 90 mL/min/1.73m2 Mildly decreased* 60 - 89 mL/min/1.73m2 Mildly to moderately decreased 45 - 59 mL/min/1.73m2 Moderately to severely decreased 30 - 44 mL/min/1.73m2 Severely decreased 15 - 29 mL/min/1.73m2 Kidney Failure < 15 mL/min/1.73m2 *Relative to young adult level Estimated glomerular filtration rate is determined by the 2020 CKD-EPI equation recommended by the National Kidney Foundation (A Unifying Approach to GFR Estimation: Recommendations of the NKF-ASK Task Force on Reassessing the Inclusion of Race in Diagnosing Kidney Disease, JASN 2020). The CKD-EPI equation should not be used for patients with unstable renal function and has not been validated in children and those over 70. Current interpretive data was last reviewed 2021. Testing performed by: [facility], [address] [place] [address]., [id number] Blood 10/20/2024 2:38 PM CDT 10/20/2024 2:57 PM CDT us August Roger MD LAB BLOOD ORDERABLES Fi nal Result Performing Organization Address [facility]/ZIP Co de Phone Number [address] [place], [place] [id number] * (ABNORMAL) Protime-INR (10/20/2024 2:38 PM CDT) PT 16.1(H) 12.0 - 14.6 sec Comment: Ref Range High Testing performed by: [address] [address] INR 1.3(H) 0.9 - 1.2 [facility] Comment: Ref Range High Interpretive data Oral anticoagulant therapeutic ranges: Venous thromboembolism prophylaxis or treatment: 2.0-3.0 CARDIOLOGY Standard range: 2.0-3.0 High-intensity range: 2.5-3.5 Refer to indication-specific guidelines for appropriate target ranges for prosthetic heart valve replacement. Current interpretive data was last revised on 2019. Testing performed by: [address] [address] Blood 10/20/2024 2:38 PM CDT 10/20/2024 2:57 PM CDT Dong [facility] [place] - 10/20/2024 3:12 PM CDT Baseline prior to apixaban initiation. August Roger MD LAB BLOOD ORDERABLES nal Result Performing Organization Address [facility]/ZIP Co de Phone Number [address] Department [place] [address] * (ABNORMAL) Creatinine (10/20/2024 2:38 PM CDT) Creatinine 6.56(H) 0.80 - 1.30 mg/dL Comment:Testing performed by : [address] [address] Blood 10/20/2024 2:38 PM CDT 10/20/2024 2:57 PM CDT Dong [facility] [place] - 10/20/2024 3:26 PM CDT Baseline prior to apixaban initiation. August Roger MD LAB BLOOD ORDERABLES nal Result Performing Organization Address [facility]/ZIP Co de Phone Number [address] Department [place] [address] * (ABNORMAL) Hepatic function panel (10/20/2024 2:38 PM CDT) [facility] Bilirubin, total 0.2 0.1 - 1.2 mg/dL Comment:Testing performed by : [address] [address] Bilirubin, direct <0.2 0.1 - 0.3 mg/dL [facility] Comment:Testing performed by : [address] [address] Protein, pl 7.0 6.5 - 8.5 g/dL [facility] Comment:Testing performed by : [address] [address] Albumin 3.5 3.5 - 5.0 g/dL [facility] [place] Comment:Testing performed by : [address] [address] Alk phos 116 40 - 130 Units/L [facility] Comment:Testing performed by : [address] [address] ALT 119(H) 7 - 55 Units/L [facility] Comment:Testing performed by : [address] [address] AST 95(H) 10 - 50 Units/L [facility] Comment:Testing performed by : [address] [address] Blood 10/20/2024 2:38 PM CDT 10/20/2024 2:57 PM CDT Narrative [facility] - 10/20/2024 3:26 PM CDT Baseline prior to apixaban initiation. August Roger MD LAB BLOOD ORDERABLES [facility] [facility] Result PAVEL [address] [facility] Department [place] [address] * Hepatitis panel, acute Blood (10/20/2024 12:31 PM CDT) [facility] Hep A IgM Nonreactive Nonreactive Comment: Interpretive Data: If Hep A IgM Ab is reported as Equivocal, a new sample should be drawn in two weeks for testing. Current interpretive data was last revised on 19. Hep B core IgM Nonreactive Nonreactive [facility] Comment: Interpretive Data If HepB Core IgM Ab is reported as Equivocal, a new sample should be drawn in two weeks for testing. Current interpretive data was last revised on 19. Hep C Ab Nonreactive Nonreactive [facility] Comment: Antibodies to HCV not detected. Does NOT exclude the possibility of recent exposure to HCV. Current interpretive data was last revised on 22 Interpretive Data Nonreactive: Antibodies to HCV not detected. Does NOT exclude the possibility of recent exposure to HCV. Equivocal: Equivocal for HCV antibodies. Supplemental molecular testing will be automatically performed to determine infection status in accordance with current CDC screening recommendations. Reactive: Positive for HCV antibodies. This may represent current or past HCV infection. Supplemental molecular testing will be automatically performed to determine current infection status in accordance with current CDC screening recommendations. Interpretive data was last revised on 2019. HepBsAg Nonreactive Nonreactive [facility] Blood 10/20/2024 12:3 1 PM CDT 10/20/2024 2:31 PM CDT Carmen Walter MD LAB MICROBIOLOGY - [facility] ORDERABLES Final Result [facility] [address] [facility] Department of Laboratories [place], [place] [id number] * Hepatitis B surface antibody (immune status) Blood (10/20/2024 12:31 PM CDT) [facility] HBsAb (immune status) Nonreactive Comment: Interpretive Data Nonreactive: This result is consistent with a lack of immunity to Hepatitis B Virus when used in the setting of routine screening. Equivocal: The immune status of the individual should be further assessed, if appropriate, after consideration of clinical status, risk factors, and additional diagnostic information. Reactive: This result is consistent with immunity to Hepatitis B Virus when used in the setting of routine screening. Current interpretive data was last revised on 19. Blood 10/20/2024 12:3 1 PM CDT 10/20/2024 2:31 PM CDT Carmen Walter MD LAB MICROBIOLOGY - GENER AL ORDERABLES Final Result Performing Organization Address [facility]/ZIP Co de Phone Number PAVEL [facility] [place] [address] * Heparin anti factor Xa activity (10/20/2024 9:04 AM CDT) [facility] Anti Factor Xa 0.54 IUnits/mL Comment: Interpretive Data Enoxaparin therapeutic range (peak): VTE treatment, Q12hr dosin.60-1.00 IUnits/mL VTE treatment, Q24hr dosin.00-2.00 IUnits/mL Q24hr dosing for renal impairment (CrCl <30 mL/min): 0.60-1.00 IUnits/mL VTE prevention: 0.10-0.40 IUnits/mL - Anti-Xa therapeutic ranges apply to blood samples drawn 4 hours after last dose (peak). - Unfractionated heparin (UFH) therapeutic range: 0.30-0.70 IUnits/mL - Direct factor Xa inhibitors (rivaroxaban, apixaban): Results must be interpreted qualitatively. No activity detected suggests little anticoagulant activity. - In severe antithrombin deficiency, anti-Xa measurement may be inaccurate. - Interpretive guidelines developed in adult populations. Interpretive guidelines for pediatric patients have not been rigorously defined. - Current interpretive data was last revised on 2019. Testing performed by: [facility], [address] [place] [address]., [address] Blood 10/20/2024 9:04 AM CDT 10/20/2024 9:08 AM CDT us Matteo Julian MD LAB BLOOD ORDERABLES Cherise l Result Performing Organization Address City/[facility]/ZIP Co de Phone Number [place] [phone] [facility] [place] [address] * CT Chest WO Contrast (10/20/2024 6:34 AM CDT) Anatomical Region Laterality Modality Body N/A Computed Tomogra phy 10/20/2024 7:09 AM CDT Narrative 10/20/2024 7:14 AM CDT EXAM DESCRIPTION: CT CHEST WO CONTRAST REASON FOR STUDY: Pneumonia, complication suspected, xray done He was admitted to hospital with cough, sputum production and shortness of breath going on for the last 3 days. Chest x-ray showed bilateral pulmonary infiltrates. Patient has been started on IV antibiotics. He does not feel any improvement in his symptoms. TECHNIQUE: CT scan of the chest performed without intravenous contrast using helical scanning technique. Reconstructed coronal and sagittal MPR images reviewed. All images stored on PACS. Automated exposure control was used as a dose optimization technique for this examination. COMPARISON: 10/19/2024 FINDINGS: The sensitivity for detection of solid visceral lesions is diminished without the use of intravenous contrast. LUNGS: Central airways are patent. Peripheral airways demonstrate wall thickening suggesting inflammatory changes. The right upper and lower lobes demonstrate peripheral interstitial densities with confluence airspace components concerning for peribronchial, interstitial inflammatory changes with developing peripheral pneumonia. Left upper lobe demonstrates a similar early consolidative opacity suggesting pneumonic infiltrative. PLEURA: No effusion. No pneumothorax. MEDIASTINUM/CECY: Nonenlarged lymph nodes retrocaval pretracheal space, AP window, subcarinal space nonspecific but likely postinflammatory. Similar changes hilar regions. HEART: Heart size is enlarged. No pericardial effusion. CORONARY ARTERY CALCIFICATION: Present VASCULATURE: No thoracic aortic aneurysm. AXILLA: Nonenlarged lymph nodes are nonspecific. CHEST WALL: No masses. No subcutaneous air. HARDWARE/LINES/TUBES: None. UPPER ABDOMEN: No significant abnormality. MUSCULOSKELETAL: The anterior abdominal wall demonstrates an oval lesion within the subcutaneous space measuring 8.4 by 5.2 cm on image 101 of series 2. Consider complex cyst, sebaceous cyst with solid lesion not fully excluded. Please correlate clinically. OTHER: No other significant abnormality. IMPRESSION: Bilateral peripheral infiltrates as evidence of pneumonia. Nonenlarged lymph nodes in the mediastinum and axilla are nonspecific but likely postinflammatory. 8.4 cm subcutaneous lesion anterior abdominal wall may represent a complex cyst, sebaceous cyst with solid lesion not fully excluded. THIS IS AN ELECTRONICALLY VERIFIED FINAL REPORT 10/20/2024 7:14 AM - Electronically signed by Winston Kinney M.D. RB: SABINO Report ID: [id number] Reading Location: [place] [address] Procedure Note Winston Kinney MD - 10/20/2024 EXAM DESCRIPTION: CT CHEST WO CONTRAST REASON FOR STUDY: Pneumonia, complication suspected, xray done He was admitted to hospital with cough, sputum production and shortness of breath going on for the last 3 days. Chest x-ray showed bilateralpulmonary infiltrates. Patient has been started on IV antibiotics. He does not feelany improvement in his symptoms. TECHNIQUE: CT scan of the chest performed without intravenous contrastusing helical scanning technique. Reconstructed coronal and sagittal MPR images reviewed. All images stored on PACS. Automated exposure control was usedas a dose optimization technique for this examination. COMPARISON: 10/19/2024 FINDINGS: The sensitivity for detection of solid visceral lesions is diminished without the use of intravenous contrast. LUNGS: Central airways are patent. Peripheral airways demonstrate wall thickening suggesting inflammatory changes. The right upper and lower lobes demonstrate peripheral interstitialdensities with confluence airspace components concerning for peribronchial,interstitial inflammatory changes with developing peripheral pneumonia. Left upper lobe demonstrates a similar early consolidative opacitysuggesting pneumonic infiltrative. PLEURA: No effusion. No pneumothorax. MEDIASTINUM/CECY: Nonenlarged lymph nodes retrocaval pretracheal space,AP window, subcarinal space nonspecific but likely postinflammatory. Similar changes hilar regions. HEART: Heart size is enlarged. No pericardial effusion. CORONARY ARTERY CALCIFICATION: Present VASCULATURE: No thoracic aortic aneurysm. AXILLA: Nonenlarged lymph nodes are nonspecific. CHEST WALL: No masses. No subcutaneous air. HARDWARE/LINES/TUBES: None. UPPER ABDOMEN: No significant abnormality. MUSCULOSKELETAL: The anterior abdominal wall demonstrates an oval lesion within the subcutaneous space measuring 8.4 by 5.2 cm on image 101 ofseries 2. Consider complex cyst, sebaceous cyst with solid lesion not fully excluded. Please correlate clinically. OTHER: No other significant abnormality. IMPRESSION: Bilateral peripheral infiltrates as evidence of pneumonia. Nonenlarged lymph nodes in the mediastinum and axilla are nonspecific but likely postinflammatory. 8.4 cm subcutaneous lesion anterior abdominal wall may represent acomplex cyst, sebaceous cyst with solid lesion not fully excluded. THIS IS AN ELECTRONICALLY VERIFIED FINAL REPORT 10/20/2024 7:14 AM - Electronically signed by Winston Kinney M.D. RB: SABINO Report ID: [id number] Reading Location: [place] [address] us Rigoberto Croft MD IMG CT PROCEDURES Cherise l Result * (ABNORMAL) eGFR (10/20/2024 3:52 AM CDT) eGFR 9(L) >=60 mL/min/1. 73 m2 Comment: Interpretive Data Reference Interval Normal >/= 90 mL/min/1.73m2 Mildly decreased* 60 - 89 mL/min/1.73m2 Mildly to moderately decreased 45 - 59 mL/min/1.73m2 Moderately to severely decreased 30 - 44 mL/min/1.73m2 Severely decreased 15 - 29 mL/min/1.73m2 Kidney Failure < 15 mL/min/1.73m2 *Relative to young adult level Estimated glomerular filtration rate is determined by the 2020 CKD-EPI equation recommended by the National Kid[employer] (A Unifying Approach to GFR Estimation: Recommendations of the NKF-ASK Task Force on Reassessing the Inclusion of Race in Diagnosing Kidney Disease, JASN 2020). The CKD-EPI equation should not be used for patients with unstable renal function and has not been validated in children and those over 70. Current interpretive data was last reviewed 2021. Testing performed by: [facility], [address] [place] [address], [place]., [address] Blood 10/20/2024 3:52 AM CDT 10/20/2024 4:31 AM CDT us Matteo Julian MD LAB BLOOD ORDERABLES Cherise l Result [facility] [address] [facility] [place] [address] 51 * (ABNORMAL) Differential, auto (10/20/2024 3:52 AM CDT) Neutrophil abs 21.5(H) 1.5 - 6.5 K/cumm Comment:Testing performed by : [address] [address] Imm gran abs 2.0(H) 0.0 - 0.1 K/cumm PAVEL Comment:Testing performed by : [address] [address] Lymphocyte abs 1.3 0.8 - 3.3 K/cumm PAVEL Comment:Testing performed by : [address] [address] Monocyte abs 0.8 0.2 - 0.8 K/cumm [facility] Comment:Testing performed by : [address] [address] Eosinophil abs 0.1 0.0 - 0.5 K/cumm [facility] Comment:Testing performed by : [address] [address] Basophil abs 0.2(H) 0.0 - 0.1 K/cumm [facility] Comment:Testing performed by : [address] [address] Neutrophil pct 83.3 % [facility] Comment: Interpretive Data Percent cell count reference ranges are not reported, since discordance with absolute values may lead to misinterpretation of CBC data. Current Interpretive Data was last revised on 2017. Testing performed by: [address] [address] Imm gran pct 7.7 % [facility] Comment: Interpretive Data Percent cell count reference ranges are not reported, since discordance with absolute values may lead to misinterpretation of CBC data. Current Interpretive Data was last revised on 2017. Testing performed by: [address] [address] Lymphocyte pct 5.1 % [facility] Comment: Interpretive Data Percent cell count reference ranges are not reported, since discordance with absolute values may lead to misinterpretation of CBC data. Current Interpretive Data was last revised on 2017. Testing performed by: [address] [address] Monocyte pct 3.0 % [facility] Comment: Interpretive Data Percent cell count reference ranges are not reported, since discordance with absolute values may lead to misinterpretation of CBC data. Current Interpretive Data was last revised on 2017. Testing performed by: [address] [address] Eosinophil pct 0.2 % [facility] Comment: Interpretive Data Percent cell count reference ranges are not reported, since discordance with absolute values may lead to misinterpretation of CBC data. Current Interpretive Data was last revised on 2017. Testing performed by: [address] [address] Basophil pct 0.7 % [facility] Comment: Interpretive Data Percent cell count reference ranges are not reported, since discordance with absolute values may lead to misinterpretation of CBC data. Current Interpretive Data was last revised on 2017. Testing performed by: [address] [address] Blood 10/20/2024 3:52 AM CDT 10/20/2024 4:33 AM CDT Honorio Mosqueda NP LAB BLOOD ORDERABLES Final Result PAVEL [address] [facility] Department [place] [address] * Heparin anti factor Xa activity (10/20/2024 3:52 AM CDT) [facility] Anti Factor Xa 0.42 IUnits/mL Comment: Interpretive Data Enoxaparin therapeutic range (peak): VTE treatment, Q12hr dosin.60-1.00 IUnits/mL VTE treatment, Q24hr dosin.00-2.00 IUnits/mL Q24hr dosing for renal impairment (CrCl <30 mL/min): 0.60-1.00 IUnits/mL VTE prevention: 0.10-0.40 IUnits/mL - Anti-Xa therapeutic ranges apply to blood samples drawn 4 hours after last dose (peak). - Unfractionated heparin (UFH) therapeutic range: 0.30-0.70 IUnits/mL - Direct factor Xa inhibitors (rivaroxaban, apixaban): Results must be interpreted qualitatively. No activity detected suggests little anticoagulant activity. - In severe antithrombin deficiency, anti-Xa measurement may be inaccurate. - Interpretive guidelines developed in adult populations. Interpretive guidelines for pediatric patients have not been rigorously defined. - Current interpretive data was last revised on 2019. Testing performed by: [address] [address] Blood 10/20/2024 3:52 AM CDT 10/20/2024 4:34 AM CDT us Matteo Julian MD LAB BLOOD ORDERABLES Cherise still Result PAVEL [address] [facility] Department of Laboratories [place], [place] [id number] * (ABNORMAL) CBC with auto differential (10/20/2024 3:52 AM CDT) [facility] WBC 25.8(H) 3.8 - 9.9 K/cumm Comment:Testing performed by : [address] [address] Hgb 9.4(L) 13.0 - 17.5 g/dL PAVEL Comment:Testing performed by : [address] [address] Hct 29.0(L) 38.9 - 50.3 % PAVEL Comment:Testing performed by : [address] [address] Plt 429(H) 150 - 400 K/cumm PAVEL Comment:Testing performed by : [address] [address] MPV 9.4 9.1 - 12.3 fL PAVEL Comment:Testing performed by : [address] [address] RBC 3.15(L) 4.30 - 5.80 M/cumm PAVEL Comment:Testing performed by : [address] [address] MCV 92.1 81.3 - 96.4 fL PAVEL Comment:Testing performed by : [address] [address] MCH 29.8 27.1 - 33.3 pg PAVEL Comment:Testing performed by : [address] [address] MCHC 32.4 32.3 - 35.7 g/dL PAVEL Comment:Testing performed by : [address], [address] RDW CV 15.2(H) 11.1 - 14.9 % PAVEL Comment:Testing performed by : [address], [address] RDW SD 50.7(H) 35.7 - 48.1 fL PAVEL Comment:Testing performed by : [address] [address] NRBC abs 0.04(H) 0.00 - 0.01 K/cumm PAVEL Comment:Testing performed by : [address] [address] Blood 10/20/2024 3:52 AM CDT 10/20/2024 4:33 AM CDT Barbara Collins MD LAB BLO OD ORDERABLES Final Result [facility] [address] [facility] Department [place] [address] * (ABNORMAL) CRP (acute phase) (10/20/2024 3:52 AM CDT) [facility] CRP 225.0(H) <=10.0 mg/L Comment:Testing performed by : [address], [address] Blood 10/20/2024 3:52 AM CDT 10/20/2024 4:31 AM CDT Rigoberto Croft MD LAB BLOOD ORDERABLES F inal Result [facility] [address] [facility] Department [place] [address] * (ABNORMAL) Comprehensive metabolic panel (10/20/2024 3:52 AM CDT) Sodium 139 135 - 145 mmol/L Comment:Testing performed by : [address] [address] Potassium, pl 4.0 3.3 - 4.9 mmol/L PAVEL Comment:Testing performed by : [address] [address] Chloride 98 97 - 110 mmol/L PAVEL Comment:Testing performed by : [address] [address] CO2 22 22 - 32 mmol/L PAVEL Comment:Testing performed by : [address] [address] Anion gap 19(H) 2 - 15 mmol/L PAVEL Comment:Testing performed by : [address] [address] BUN 105(H) 6 - 25 mg/dL PAVEL Comment:Testing performed by : [address] [address] Creatinine 6.35(H) 0.80 - 1.30 mg/dL PAVEL Comment:Testing performed by : [address] [address] Glucose 172 70 - 199 mg/dL PAVEL Comment: Interpretive Data Fasting glucose >/= 126 mg/dl is diagnostic for diabetes. Fasting is defined as no caloric intake for at least 8 hours. Fasting glucose between 100 mg/dl to 125 mg/dl is diagnostic of prediabetes. In a patient with classic symptoms of hyperglycemia or hyperglycemic crisis, a random glucose >/= 200 mg/dl is diagnostic for diabetes. In the absence of unequivocal hyperglycemia, results should be confirmed by repeat testing. The classification and Diagnosis of Diabetes Diabetes Care 2021; 46: S19-S40. Current interpretive data was last revised 2022. Testing performed by: [address] [address] Calcium 10.1 8.5 - 10.3 mg/dL PAVEL Comment:Testing performed by : [address] [address] Bilirubin, total 0.2 0.1 - 1.2 mg/dL PAVEL Comment:Testing performed by : [address] [address] Protein, pl 6.6 6.5 - 8.5 g/dL PAVEL Comment:Testing performed by : [address] [address] Albumin 3.2(L) 3.5 - 5.0 g/dL PAVEL Comment:Testing performed by : [address] [address] Alk phos 132(H) 40 - 130 Units/L PAVEL Comment:Testing performed by : [address] [address] ALT 91(H) 7 - 55 Units/L PAVEL Comment:Testing performed by : [address] [address] AST 105(H) 10 - 50 Units/L PAVEL Comment:Testing performed by : [address] [address] Blood 10/20/2024 3:52 AM CDT 10/20/2024 4:31 AM CDT us Matteo Julian MD LAB BLOOD ORDERABLES Cherise still Result PAVEL [address] [facility] Department of Laboratories [place], [place] [id number] * Heparin anti factor Xa activity (10/19/2024 7:33 PM CDT) Anti Factor Xa <0.10 IUnits/mL Comment: Interpretive Data Enoxaparin therapeutic range (peak): VTE treatment, Q12hr dosin.60-1.00 IUnits/mL VTE treatment, Q24hr dosin.00-2.00 IUnits/mL Q24hr dosing for renal impairment (CrCl <30 mL/min): 0.60-1.00 IUnits/mL VTE prevention: 0.10-0.40 IUnits/mL - Anti-Xa therapeutic ranges apply to blood samples drawn 4 hours after last dose (peak). - Unfractionated heparin (UFH) therapeutic range: 0.30-0.70 IUnits/mL - Direct factor Xa inhibitors (rivaroxaban, apixaban): Results must be interpreted qualitatively. No activity detected suggests little anticoagulant activity. - In severe antithrombin deficiency, anti-Xa measurement may be inaccurate. - Interpretive guidelines developed in adult populations. Interpretive guidelines for pediatric patients have not been rigorously defined. - Current interpretive data was last revised on 2019. Testing performed by: [facility], [address] [place] [address]., [address] Blood 10/19/2024 7:33 PM CDT 10/19/2024 7:50 PM CDT us Matteo Julian MD LAB BLOOD ORDERABLES Cherise l Result [facility] [address] [facility] Department [place] [address] * Heparin anti factor Xa activity (10/19/2024 12:50 PM CDT) [facility] Signature Anti Factor Xa <0.10 IUnits/mL Comment: Interpretive Data Enoxaparin therapeutic range (peak): VTE treatment, Q12hr dosin.60-1.00 IUnits/mL VTE treatment, Q24hr dosin.00-2.00 IUnits/mL Q24hr dosing for renal impairment (CrCl <30 mL/min): 0.60-1.00 IUnits/mL VTE prevention: 0.10-0.40 IUnits/mL - Anti-Xa therapeutic ranges apply to blood samples drawn 4 hours after last dose (peak). - Unfractionated heparin (UFH) therapeutic range: 0.30-0.70 IUnits/mL - Direct factor Xa inhibitors (rivaroxaban, apixaban): Results must be interpreted qualitatively. No activity detected suggests little anticoagulant activity. - In severe antithrombin deficiency, anti-Xa measurement may be inaccurate. - Interpretive guidelines developed in adult populations. Interpretive guidelines for pediatric patients have not been rigorously defined. - Current interpretive data was last revised on 2019. Testing performed by: [address] [address] Blood 10/19/2024 12:5 0 PM CDT 10/19/2024 1:08 PM CDT Narrative PAVEL - 10/19/2024 1:55 PM CDT Baseline prior to heparin initiation Matteo Julian MD LAB BLOOD ORDERABLES Cherise l Result PAVEL [address] [facility] Department [place] [address] * (ABNORMAL) Protime-INR (10/19/2024 12:50 PM CDT) Pathologist [facility] PT 15.6(H) 12.0 - 14.6 sec Comment: Ref Range High Testing performed by: [address] [address] INR 1.3(H) 0.9 - 1.2 PAVEL Comment: Ref Range High Interpretive data Oral anticoagulant therapeutic ranges: Venous thromboembolism prophylaxis or treatment: 2.0-3.0 CARDIOLOGY Standard range: 2.0-3.0 High-intensity range: 2.5-3.5 Refer to indication-specific guidelines for appropriate target ranges for prosthetic heart valve replacement. Current interpretive data was last revised on 2019. Testing performed by: [address] [address] Blood 10/19/2024 12:5 0 PM CDT 10/19/2024 1:07 PM CDT Narrative PAVEL ROSADO - 10/19/2024 1:27 PM CDT Baseline prior to heparin initiation Matteo Julian MD LAB BLOOD ORDERABLES Cherise l Result Performing Organization Address [facility] Co de Phone Number PAVEL [address] [facility] Department [place] [address] * ECG 12 lead (10/19/2024 12:28 PM CDT) Pathologist [facility] Ventricular Rate EKG/Min 122 BPM [facility] Atrial Rate [address] [facility] QRS-Interval (MSEC) 156 ms [facility] QT-Interval (MSEC) [address] [facility] QTc [address] [facility] R Nunn [address] [facility] T Nunn [address] [facility] Diagnosis Atrial fibrillation with rapid ventricular response Left axis deviation Non-specific intra-ventricul ar conduction block Abnormal ECG Confirmed by LANDEN SEARS M.D. ([id number]) on 10/19/2024 4:58:[address] [facility] 10/19/2024 12:2 8 PM CDT 10/19/2024 4:58 PM CDT Matteo Julian MD ECG ORDERABLES Final Res ult Performing Organization Address [facility] de Phone Number [facility] * XR Chest 1 View (10/19/2024 8:40 AM CDT) Anatomical Region Laterality Modality Body, Chest N/A Computed Radiogr aphy 10/19/2024 11:1 3 AM CDT Narrative 10/19/2024 11:14 AM CDT EXAM DESCRIPTION: XR CHEST 1 VIEW REASON FOR STUDY: dyspnea Pt states sob and cough since 10/14/24 TECHNIQUE: 1 radiographic view(s) of the chest. COMPARISON: 10/17/2024 FINDINGS: LUNGS: Extensive opacities throughout the right lung are not significantly changed. No large pleural effusion. No evidence of pneumothorax. HEART/MEDIASTINUM: Cardiac silhouette is enlarged, unchanged. Mediastinal and hilar contours appear normal. LINES/TUBES: None. BONES: No acute osseous abnormality. IMPRESSION: Diffuse opacities throughout the right lung are not significantly changed. Unchanged cardiomegaly. THIS IS AN ELECTRONICALLY VERIFIED FINAL REPORT 10/19/2024 11:14 AM - Electronically signed by Jonathan Oneill M.D. KR: KEL Report ID: [id number] Reading Location: [place] [address] Procedure Note Jonathan Oneill MD - 10/19/2024 EXAM DESCRIPTION: XR CHEST 1 VIEW REASON FOR STUDY: dyspnea Pt states sob and cough since 10/14/24 TECHNIQUE: 1 radiographic view(s) of the chest. COMPARISON: 10/17/2024 FINDINGS: LUNGS: Extensive opacities throughout the right lung are not significantly changed. No large pleural effusion. No evidence of pneumothorax. HEART/MEDIASTINUM: Cardiac silhouette is enlarged, unchanged.Mediastinal and hilar contours appear normal. LINES/TUBES: None. BONES: No acute osseous abnormality. IMPRESSION: Diffuse opacities throughout the right lung are notsignificantly changed. Unchanged cardiomegaly. THIS IS AN ELECTRONICALLY VERIFIED FINAL REPORT 10/19/2024 11:14 AM - Electronically signed by Jonathan Oneill M.D. KR: KEL Report ID: [id number] Reading Location: [place] [address] Rigoberto Croft MD IMG XR PROCEDURES Cherise l Result * (ABNORMAL) eGFR (10/19/2024 4:05 AM CDT) eGFR 10(L) >=60 mL/min/1. 73 m2 Comment: Interpretive Data Reference Interval Normal >/= 90 mL/min/1.73m2 Mildly decreased* 60 - 89 mL/min/1.73m2 Mildly to moderately decreased 45 - 59 mL/min/1.73m2 Moderately to severely decreased 30 - 44 mL/min/1.73m2 Severely decreased 15 - 29 mL/min/1.73m2 Kidney Failure < 15 mL/min/1.73m2 *Relative to young adult level Estimated glomerular filtration rate is determined by the 2020 CKD-EPI equation recommended by the National [employer] (A Unifying Approach to GFR Estimation: Recommendations of the NKF-ASK Task Force on Reassessing the Inclusion of Race in Diagnosing Kidney Disease, JASN 2020). The CKD-EPI equation should not be used for patients with unstable renal function and has not been validated in children and those over 70. Current interpretive data was last reviewed 2021. Testing performed by: [address] [address] Blood 10/19/2024 4:05 AM CDT 10/19/2024 4:39 AM CDT us Matteo Julian MD LAB BLOOD ORDERABLES Cherise still Result PAVEL [address] [facility] Department [place] [address] * (ABNORMAL) Differential, auto (10/19/2024 4:05 AM CDT) Neutrophil abs 18.8(H) 1.5 - 6.5 K/cumm Comment:Testing performed by : [address] [address] Imm gran abs 1.0(H) 0.0 - 0.1 K/cumm PAVEL Comment:Testing performed by : [address] [address] Lymphocyte abs 0.9 0.8 - 3.3 K/cumm PAVEL Comment:Testing performed by : [address] [address] Monocyte abs 0.8 0.2 - 0.8 K/cumm PAVEL Comment:Testing performed by : [address] [address] Eosinophil abs 0.0 0.0 - 0.5 K/cumm PAVEL Comment:Testing performed by : [address] [address] Basophil abs 0.1 0.0 - 0.1 K/cumm PAVEL Comment:Testing performed by : [address] [address] Neutrophil pct 87.5 % [facility] Comment: Interpretive Data Percent cell count reference ranges are not reported, since discordance with absolute values may lead to misinterpretation of CBC data. Current Interpretive Data was last revised on 2017. Testing performed by: [address] [address] Imm gran pct 4.5 % [facility] Comment: Interpretive Data Percent cell count reference ranges are not reported, since discordance with absolute values may lead to misinterpretation of CBC data. Current Interpretive Data was last revised on 2017. Testing performed by: [address] [address] Lymphocyte pct 4.0 % [facility] Comment: Interpretive Data Percent cell count reference ranges are not reported, since discordance with absolute values may lead to misinterpretation of CBC data. Current Interpretive Data was last revised on 2017. Testing performed by: [address] [address] Monocyte pct 3.6 % [facility] Comment: Interpretive Data Percent cell count reference ranges are not reported, since discordance with absolute values may lead to misinterpretation of CBC data. Current Interpretive Data was last revised on 2017. Testing performed by: [address] [address] Eosinophil pct 0.1 % [facility] Comment: Interpretive Data Percent cell count reference ranges are not reported, since discordance with absolute values may lead to misinterpretation of CBC data. Current Interpretive Data was last revised on 2017. Testing performed by: [address] [address] Basophil pct 0.3 % [facility] Comment: Interpretive Data Percent cell count reference ranges are not reported, since discordance with absolute values may lead to misinterpretation of CBC data. Current Interpretive Data was last revised on 2017. Testing performed by: [address] [address] Blood 10/19/2024 4:05 AM CDT 10/19/2024 4:41 AM CDT us Honorio Mosqueda NP LAB BLOOD ORDERABLES Final Result Performing Organization Address [facility] Co de Phone Number [address] [address] * (ABNORMAL) Thyroid Function [place] (10/19/2024 4:05 AM CDT) TSH 0.12(L) 0.30 - 4.20 mcIUnit/mL Comment:Testing performed by : [address] [address] Blood 10/19/2024 4:05 AM CDT 10/19/2024 4:39 AM CDT us Matteo Julian MD LAB BLOOD ORDERABLES Cherise l Result Performing Organization Address [facility] Co de Phone Number [address] [address] * (ABNORMAL) CBC with auto differential (10/19/2024 4:05 AM CDT) Pathologist [facility] WBC 21.5(H) 3.8 - 9.9 K/cumm Comment:Testing performed by : [address] [address] Hgb 9.7(L) 13.0 - 17.5 g/dL PAVEL Comment:Testing performed by : [address] [address] Hct 29.8(L) 38.9 - 50.3 % PAVEL Comment:Testing performed by : [address] [address] Plt 419(H) 150 - 400 K/cumm PAVEL Comment:Testing performed by : [address] [address] MPV 9.6 9.1 - 12.3 fL PAVEL ROSADO Comment:Testing performed by : [address] [address] RBC 3.25(L) 4.30 - 5.80 M/cumm PAVEL ROSADO Comment:Testing performed by : [address] [address] MCV 91.7 81.3 - 96.4 fL PAVEL Comment:Testing performed by : [address] [address] MCH 29.8 27.1 - 33.3 pg PAVEL Comment:Testing performed by : [address] [address] MCHC 32.6 32.3 - 35.7 g/dL PAVEL Comment:Testing performed by : [address] [address] RDW CV 15.2(H) 11.1 - 14.9 % PAVEL Comment:Testing performed by : [address], [address] RDW SD 51.7(H) 35.7 - 48.1 fL PAVEL Comment:Testing performed by : [address] [address] NRBC abs 0.00 0.00 - 0.01 K/cumm PAVEL Comment:Testing performed by : [address] [address] Blood 10/19/2024 4:05 AM CDT 10/19/2024 4:41 AM CDT us Barbara Collins MD LAB BLO OD ORDERABLES Final Result PAVEL [address] [facility] Department [place] [address] * (ABNORMAL) CRP (acute phase) (10/19/2024 4:05 AM CDT) [facility] CRP 476.0(H) <=10.0 mg/L Comment:Testing performed by : [address] [address] Blood 10/19/2024 4:05 AM CDT 10/19/2024 4:39 AM CDT Rigoberto Croft MD LAB BLOOD ORDERABLES F inal Result Performing Organization Address City/[facility]/ZIP Co de Phone Number [address] [place] [address] * (ABNORMAL) T3, free (10/19/2024 4:05 AM CDT) Free T3 1.5(L) 2.0 - 4.4 pg/mL Blood 10/19/2024 4:05 AM CDT 10/19/2024 4:42 PM CDT Narrative PAVEL - 10/19/2024 5:11 PM CDT This test was reflexed from a T4 result. Matteo Julian MD LAB BLOOD ORDERABLES Cherise l Result Performing Organization Address [facility] Co de Phone Number [address] [address] * T4, free (10/19/2024 4:05 AM CDT) Free T4 1.40 0.90 - 1.70 ng/dL Comment:Testing performed by : [address] [address] Blood 10/19/2024 4:05 AM CDT 10/19/2024 4:39 AM CDT Narrative PAVEL - 10/19/2024 2:34 PM CDT This test was reflexed from a TSH result. Matteo Julian MD LAB BLOOD ORDERABLES Cherise l Result Performing Organization Address City/[facility]/ZIP Co de Phone Number [address] [place] [address] * (ABNORMAL) Comprehensive metabolic panel (10/19/2024 4:05 AM CDT) Sodium 139 135 - 145 mmol/L Comment:Testing performed by : [address] [address] Potassium, pl 4.5 3.3 - 4.9 mmol/L PAVEL Comment: Hemolyzed; Potassium value may be falsely elevated by as much as 1.0 mmol/L. Suggest redraw and reanalysis. Testing performed by: [address], [place]., [address] Chloride 100 97 - 110 mmol/L [facility] Comment:Testing performed by : [address], [place]., [address] CO2 22 22 - 32 mmol/L [facility] Comment:Testing performed by : [address], [place]., [address] Anion gap 17(H) 2 - 15 mmol/L [facility] Comment:Testing performed by : [address] [address] BUN 89(H) 6 - 25 mg/dL [facility] Comment:Testing performed by : [address] [address] Creatinine 5.77(H) 0.80 - 1.30 mg/dL [facility] Comment:Testing performed by : [address] [address] Glucose 196 70 - 199 mg/dL [facility] Comment: Interpretive Data Fasting glucose >/= 126 mg/dl is diagnostic for diabetes. Fasting is defined as no caloric intake for at least 8 hours. Fasting glucose between 100 mg/dl to 125 mg/dl is diagnostic of prediabetes. In a patient with classic symptoms of hyperglycemia or hyperglycemic crisis, a random glucose >/= 200 mg/dl is diagnostic for diabetes. In the absence of unequivocal hyperglycemia, results should be confirmed by repeat testing. The classification and Diagnosis of Diabetes Diabetes Care 2021; 46: S19-S40. Current interpretive data was last revised 2022. Testing performed by: [address], [place]., [address] Calcium 10.4(H) 8.5 - 10.3 mg/dL PAVEL Comment:Testing performed by : [address], [address] Bilirubin, total 0.2 0.1 - 1.2 mg/dL PAVEL Comment:Testing performed by : [address] [address] Protein, pl 7.1 6.5 - 8.5 g/dL PAVEL Comment:Testing performed by : [address], [address] Albumin 3.2(L) 3.5 - 5.0 g/dL PAVEL Comment:Testing performed by : [address], [address] Alk phos 102 40 - 130 Units/L PAVEL Comment:Testing performed by : [address], [address] ALT 31 7 - 55 Units/L PAVEL Comment:Testing performed by : [address], [address] AST 44 10 - 50 Units/L PAVEL Comment: Hemolyzed; result may be falsely elevated Testing performed by: [address], [address] Blood 10/19/2024 4:05 AM CDT 10/19/2024 4:39 AM CDT us Matteo Julian MD LAB BLOOD ORDERABLES Cherise l Result PAVEL [address] [facility] Department of Laboratories [place], [place] [id number] * TRANSTHORACIC ECHO (TTE) COMPLETE W DOPPLER/CF W CONTRAST (10/18/2024 2:30 PM CDT) LV EF 30-35 % CONS SCIMAGE Anatomical Region Laterality Modality Ultrasound 10/18/2024 1:40 PM CDT Narrative 10/18/2024 6:15 PM CDT Transthoracic Echocardiographic Report Patient Name: LAMIN BETTS J : 1950 (74y 8m) Gender: M Study Date: 10/18/2024 01:40:19 PM Ht(Inch): 75 Wt(Lb): 267.99 BSA: 2.54 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 Contrast: A contrast injection of Definity was performed to improve assessment of LV function. Definity Lot Number: [id number]. Technically difficult study due to: Technically difficult study due to underlying lung condition. Technically difficult study due to body habitus. INDICATIONS: Dyspnea. FINDINGS: Left Ventricle: Moderately depressed left ventricular systolic function. The Ejection Fraction is visually estimated to be 30-35 %. Regional Wall Motion: There is moderate global hypokinesis. Right Ventricle: Normal right ventricular size. Normal right ventricular systolic function. Left Atrium: Left Atrium not well visualized due to poor echo windows. Right Atrium: Right Atrium not well visualized due to poor echo windows. Atrial Septum: Interatrial Septum is not well visualized due to poor echo windows. Mitral Valve: There is mild mitral valve regurgitation. Mild mitral stenosis. The mean transmitral gradient is: 4 mmHg. However, on grayscale ultrasound, the mitral valve appears to open well. Aortic Valve: Mild aortic valve regurgitation. No aortic valve stenosis. The mean transaortic gradient is 6 mmHg. Tricuspid Valve: PASP cannot be evaluated due to lack of adequate TR jet. Pulmonic Valve: Pulmonic Valve not well visualized due to poor echo windows. Pericardium: Normal pericardium without evidence of pericardial effusion. Aorta: Aorta not well visualized. IVC: IVC is normal in size. IVC Collapses normally with inspiration. The IVC (inferior vena cava) was <2.1 cm and collapsibility >50%. CONCLUSIONS: 1. Technically Difficult Study. 2. Moderately depressed left ventricular systolic function. The Ejection Fraction is visually estimated to be 30-35 %. 3. There is mild mitral valve regurgitation. Mild mitral stenosis. However, on grayscale ultrasound, the mitral valve appears to open well. 4. Mild aortic valve regurgitation. MEASUREMENTS: 2D/MM Value Range Doppler Value Visually Estimated EF 30-35 % AV Peak Garett 1.53 m/s TAPSE 1.83 cm [ 1.71 - 5.00 ] AV Peak PG 9.36 mmHg AV Mean PG 6.00 mmHg AV VTI 26.00 cm LVOT Peak Garett 1.10 m/s LVOT Peak PG 4.84 mmHg LVOT Mean PG 3.00 mmHg LVOT VTI 19.90 cm LVOT/AV VTI 0.77 - Dimensionless index (DVI) AI Peak Garett 4.19 m/s AI Peak PG 70.00 mmHg AI Decel [place] 4.33 m/s2 AI PHT 284.00 ms MV E Peak Garett 0.99 m/s MV A Peak Garett 0.97 m/s MV E/A 1.00 ratio MV Peak Garett 1.21 m/s MV Peak PG 5.86 mmHg MV Mean PG 4.00 mmHg MV VTI 23.70 cm MV Decel Time 131.00 msec Med E` Garett 13.50 cm/sec Lat E` Garett 9.56 cm/sec Average E/E` 8.59 RV S` 14.90 cm/sec PV Peak Garett 0.94 m/s PV Peak PG 3.53 mmHg - ATTESTATION: I have reviewed and interpreted the pertinent images and measurements of this study. I attest to the conclusions in the final report that is provided above. DISCLAIMER: The study images and the final report will be retained in the patient chart by the Echo Laboratory for the legally required time period. This chart constitutes the legal record of any testing performed. 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 Contrast: A contrast injection of Definity was performed to improveassessment of LV function. Definity Lot Number: [id number]. Technically difficult study due to: Technically difficult study due tounderlying lung condition. Technically difficult study due to body habitus. INDICATIONS: Dyspnea. FINDINGS: Left Ventricle: Moderately depressed left ventricular systolic function.The Ejection Fraction is visually estimated to be 30-35 %. Regional Wall Motion: There is moderate global hypokinesis. Right Ventricle: Normal right ventricular size. Normal right ventricularsystolic function. Left Atrium: Left Atrium not well visualized due to poor echo windows. Right Atrium: Right Atrium not well visualized due to poor echo windows. Atrial Septum: Interatrial Septum is not well visualized due to poor echowindows. Mitral Valve: There is mild mitral valve regurgitation. Mild mitralstenosis. The mean transmitral gradient is: 4 mmHg. However, on grayscale ultrasound, themitral valve appears to open well. Aortic Valve: Mild aortic valve regurgitation. No aortic valve stenosis.The mean transaortic gradient is 6 mmHg. Tricuspid Valve: PASP cannot be evaluated due to lack of adequate TRjet. Pulmonic Valve: Pulmonic Valve not well visualized due to poor echowindows. Pericardium: Normal pericardium without evidence of pericardialeffusion. Aorta: Aorta not well visualized. IVC: IVC is normal in size. IVC Collapses normally with inspiration. TheIVC (inferior vena cava) was <2.1 cm and collapsibility >50%. CONCLUSIONS: 1. Technically Difficult Study. 2. Moderately depressed left ventricular systolic function. The EjectionFraction is visually estimated to be 30-35 %. 3. There is mild mitral valve regurgitation. Mild mitral stenosis.However, on grayscale ultrasound, the mitral valve appears to open well. 4. Mild aortic valve regurgitation. MEASUREMENTS: 2D/MM Value Range DopplerValue Visually Estimated EF 30-35 % AV Peak Vel1.53 m/s TAPSE 1.83 cm [ 1.71 - 5.00 ] AV Peak PG9.36 mmHg AV Mean PG 6.00 mmHg AV VTI 26.00 cm LVOT Peak Garett 1.10 m/s LVOT Peak PG 4.84 mmHg LVOT Mean PG 3.00 mmHg LVOT VTI 19.90 cm LVOT/AV VTI 0.77 - Dimensionless index (DVI) AI Peak Garett 4.19 m/s AI Peak PG 70.00 mmHg AI Decel [place] 4.33 m/s2 AI PHT 284.00 ms MV E Peak Garett 0.99 m/s MV A Peak Garett 0.97 m/s MV E/A 1.00 ratio MV Peak Garett 1.21 m/s MV Peak PG 5.86 mmHg MV Mean PG 4.00 mmHg MV VTI 23.70 cm MV Decel Time 131.00 msec Med E` Garett 13.50 cm/sec Lat E` Garett 9.56 cm/sec Average E/E` 8.59 RV S` 14.90 cm/sec PV Peak Garett 0.94 m/s PV Peak PG 3.53 mmHg - ATTESTATION: I have reviewed and interpreted the pertinent images and measurements ofthis study. I attest to the conclusions in the final report that is provided above. DISCLAIMER: The study images and the final report will be retained in the patientchart by the Echo Laboratory for the legally required time period. This chart constitutesthe legal record of any testing performed. Electronically Signed By: August Roger MD 10/18/2024 6:14:29 PM CDT us Honorio Mosqueda NP CV ECHO PROCEDURES F inal Result * ECG 12 lead (10/18/2024 5:59 AM CDT) Pathologist [facility] Ventricular Rate EKG/Min 93 BPM [facility] Atrial Rate [address] [facility] NH-Interval (MSEC) [address] [facility] QRS-Interval (MSEC) 162 ms [facility] QT-Interval (MSEC) [address] [facility] QTc [address] [facility] R [place] [address] [facility] T [place] [address] [facility] Diagnosis Sinus rhythm with occasional Premature ventricular complexes and Premature atrial complexes Right superior axis deviation Left bundle branch block Incomplete right bundle branch block Abnormal ECG When compared with ECG of 17-OCT-2024 13:15, Premature ventricular complexes are now Present Confirmed by SULTAN DREW M.D. ([id number]) on 10/18/2024 3:53:[address] [facility] 10/18/2024 5:59 AM CDT 10/18/2024 3:53 PM CDT us Matteo Julian MD ECG ORDERABLES Final Res ult [facility] * (ABNORMAL) Differential, auto (10/18/2024 4:42 AM CDT) Neutrophil abs 12.6(H) 1.5 - 6.5 K/cumm Comment:Testing performed by : [address], [place]., [address] Imm gran abs 0.1 0.0 - 0.1 K/cumm CERALDO Comment:Testing performed by : [address], [place]., [address] Lymphocyte abs 0.4(L) 0.8 - 3.3 K/cumm CERNER Comment:Testing performed by : [address], [place]., [address] Monocyte abs 0.5 0.2 - 0.8 K/cumm [facility] Comment:Testing performed by : [address], [place]., [address] Eosinophil abs 0.0 0.0 - 0.5 K/cumm [facility] Comment:Testing performed by : [address], [place]., [address] Basophil abs 0.0 0.0 - 0.1 K/cumm [facility] Comment:Testing performed by : [address] [address] Neutrophil pct 92.4 % [facility] [place] Comment: Interpretive Data Percent cell count reference ranges are not reported, since discordance with absolute values may lead to misinterpretation of CBC data. Current Interpretive Data was last revised on 2017. Testing performed by: [address] [address] Imm gran pct 0.8 % [facility] Comment: Interpretive Data Percent cell count reference ranges are not reported, since discordance with absolute values may lead to misinterpretation of CBC data. Current Interpretive Data was last revised on 2017. Testing performed by: [address] [address] Lymphocyte pct 3.2 % CERNER Comment: Interpretive Data Percent cell count reference ranges are not reported, since discordance with absolute values may lead to misinterpretation of CBC data. Current Interpretive Data was last revised on 2017. Testing performed by: [address] [address] Monocyte pct 3.5 % CERNER Comment: Interpretive Data Percent cell count reference ranges are not reported, since discordance with absolute values may lead to misinterpretation of CBC data. Current Interpretive Data was last revised on 2017. Testing performed by: [address] [address] Eosinophil pct 0.0 % PAVEL Comment: Interpretive Data Percent cell count reference ranges are not reported, since discordance with absolute values may lead to misinterpretation of CBC data. Current Interpretive Data was last revised on 2017. Testing performed by: [address] [address] Basophil pct 0.1 % PAVEL Comment: Interpretive Data Percent cell count reference ranges are not reported, since discordance with absolute values may lead to misinterpretation of CBC data. Current Interpretive Data was last revised on 2017. Testing performed by: [address] [address] Blood 10/18/2024 4:42 AM CDT 10/18/2024 5:22 AM CDT Honorio Mosqueda PAYROLL MANAGER LAB BLOOD ORDERABLES Final Result [facility] [address] [facility] Department [place] [address] * (ABNORMAL) Iron profile w/ IBC (10/18/2024 4:42 AM CDT) Iron 16(L) 50 - 150 mcg/dL Comment:Testing performed by : [address] [address] TIBC 177(L) 250 - 400 mcg/dL PAVEL Comment:Testing performed by : [address] [address] Transferrin saturation 9(L) 20 - 50 % PAVEL Comment:Testing performed by : [address] [address] Blood 10/18/2024 4:42 AM CDT 10/18/2024 5:18 AM CDT Honorio Mosqueda PAYROLL MANAGER LAB BLOOD ORDERABLES Final Result [facility] [address] [facility] Department [place] [address] * (ABNORMAL) CBC with auto differential (10/18/2024 4:42 AM CDT) [facility] Signature WBC 13.6(H) 3.8 - 9.9 K/cumm Comment:Testing performed by : [address] [address] Hgb 9.5(L) 13.0 - 17.5 g/dL PAVEL Comment:Testing performed by : [address], [address] Hct 30.5(L) 38.9 - 50.3 % PAVEL Comment:Testing performed by : [address] [address] Plt 342 150 - 400 K/cumm PAVEL Comment:Testing performed by : [address] [address] MPV 10.3 9.1 - 12.3 fL PAVEL Comment:Testing performed by : [address], [address] RBC 3.27(L) 4.30 - 5.80 M/cumm PAVEL Comment:Testing performed by : [address] [address] MCV 93.3 81.3 - 96.4 fL PAVEL Comment:Testing performed by : [address] [address] MCH 29.1 27.1 - 33.3 pg PAVEL Comment:Testing performed by : [address] [address] MCHC 31.1(L) 32.3 - 35.7 g/dL PAVEL Comment:Testing performed by : [address] [address] RDW CV 15.0(H) 11.1 - 14.9 % PAVEL Comment:Testing performed by : [address] [address] RDW SD 51.3(H) 35.7 - 48.1 fL PAVEL ROSADO Comment:Testing performed by : [address] [address] NRBC abs 0.00 0.00 - 0.01 K/cumm PAVEL ROSADO Comment:Testing performed by : [address] [address] Blood 10/18/2024 4:42 AM CDT 10/18/2024 5:22 AM CDT Barbara Collins MD LAB BLO OD ORDERABLES Final Result Performing Organization Address City/[facility]/ZIP Co de Phone Number [id number] [place] [address] * Phosphorus (10/18/2024 4:42 AM CDT) Phosphorus, pl 3.1 2.3 - 4.5 mg/dL Comment:Testing performed by : [address] [address] Blood 10/18/2024 4:42 AM CDT 10/18/2024 5:18 AM CDT Honorio Mosqueda NP LAB BLOOD ORDERABLES Final Result Performing Organization Address City/[facility] Co de Phone Number [address] [address] * Magnesium (10/18/2024 4:42 AM CDT) Magnesium 2.0 1.4 - 2.5 mg/dL Comment:Testing performed by : [address] [address] Blood 10/18/2024 4:42 AM CDT 10/18/2024 5:18 AM CDT Shereece Katie Mosqueda PAYROLL MANAGER LAB BLOOD ORDERABLES Final Result Performing Organization Address City/[facility]/ZIP Co de Phone Number PAVEL [address] [facility] Department [place] [address] * Ferritin (10/18/2024 4:42 AM CDT) Pathologist [facility] Ferritin 353 30 - 400 ng/mL Comment:Testing performed by : [facility], [address] [place] [address]., [address] Blood 10/18/2024 4:42 AM CDT 10/18/2024 5:18 AM CDT Honorio Mosqueda PAYROLL MANAGER LAB BLOOD ORDERABLES Final Result Performing Organization Address [facility] Co de Phone Number PAVEL ROSADO [address] [place] [address] * (ABNORMAL) Pneumonia PCR with aerobic culture and Gram stain Sputum (10/18/2024 12:24 AM CDT) Pathologist [facility] Direct Specimen Exam Stain: Abundant squamous epithelial cells seen indicating excessive oropharyngeal contamination. Culture will not be processed further. Please submit another specimen. Smear results called to and read back by: Jackie Leos MLT ([phone]) on 10/18/2024 05:15:52 by: Willian Christine Jr [place] Results phoned to and read back by: [id number] on 10/18/2024 05:25:35 by: [id number] Comment:Testing performed by : [facility], [address] [place] [address], [place]., [address] Direct Specimen Exam Molecular Analysis: Abundant squamous epithelial cells observed on Gram stain. Specimen will not be processed for rapid molecular analysis. PAVEL ROSADO Comment:Testing performed by : [facility], [address] [place] [address]., [id number] Report Final Report: This is the final report. (.) PAVEL ROSADO Comment:Testing performed by : [facility], [address] [place] [address]., [id number] Sputum 10/18/2024 12:2 4 AM CDT 10/18/2024 3:49 AM CDT Narrative PAVEL - 10/18/2024 7:45 AM CDT When rapid molecular testing results are reported, testing completed using the SocialTaggArray Pneumonia Panel. This molecular assay detects: Acinetobacter calcoaceticus-baumannii complex, Enterobacter cloacae complex, Escherichia coli, Haemophilus influenzae, Enterobacter (Klebsiella) aerogenes, Klebsiella oxytoca, Klebsiella pneumoniae group, Moraxella catarrhalis, Proteus spp., Pseudomonas aeruginosa, Serratia marcescens, Staphylococcus aureus, Streptococcus agalactiae, Streptococcus pneumoniae, and Streptococcus pyogenes. These bacteria are detected and reported semi-quantitatively with bins representing approximately 10^4, 10^5, 10^6, or greater than or equal to 10^7 genomic copies of bacterial nucleic acid per mL (copies/mL) of specimen. These quantities are reported to aid in estimating the relative abundance of organism(s) detected within the specimen and to correlate these results with culture results. For Staphylococcus aureus, mecA/C and MREJ genes are evaluated to predict methicillin resistance or susceptibility. For Gram-negative bacteria, the beta-lactamases CTX-M, IMP, KPC, NDM, VIM and OXA-48-like are evaluated and reported if detected. For Gram-negative organisms, the absence of detection of resistance markers does not exclude resistance. Correlation with final culture results and susceptibility testing is recommended. The FilmArray Pneumonia Panel is cleared by the [place] Food and Drug Administration and its performance characteristics have been confirmed by the [facility]. The performance of the FilmArray Pneumonia Panel has not been established for monitoring treatment of infection and bacterial nucleic acids may persist independent of organism viability. Honorio Mosqueda NP LAB [facility]OLOG[facility] - [facility] ORDERABLES Final Result PAVEL [address] [facility] Department [place] [address] * Strep pneumoniae antigen, urine Urine (10/18/2024 12:24 AM CDT) S. pneumoniae Ag Negative Negative Comment: Interpretive Data A positive result is indicative of pneumococcal pneumonia in patients with severe CAP. Cross-reactivity with closely related Streptococcus bacteria may occur. A negative result suggests no current or recent pneumococcal infection but cannot rule out infection with S. pneumoniae. The results of this testing should be used in conjunction with clinical findings and other diagnostic testing, including microbiologic culture. Current Interpretive Data was last revised on 2022 Urine 10/18/2024 12:2 4 AM CDT 10/18/2024 2:12 AM CDT Honorio Mosqueda LAB MICROBIOLOGY - G ENERAL ORDERABLES Final Result Performing Organization Address [facility] de Phone Number [address] [address] * Legionella antigen Urine (10/18/2024 12:24 AM CDT) Pathologist [facility] Legionella Ag Negative Negative Comment: Interpretive Data This test detects only Legionella pneumophila serogroup 1 antigen. Testing performed by [facility] ([phone]). Current interpretive data was last revised on 2019. Testing performed by: [facility], [address] [place] [address], [place]., [address] Urine 10/18/2024 12:2 4 AM CDT 10/18/2024 3:58 AM CDT Honorio Mosqueda LAB MICROBIOLOGY - G ENERAL ORDERABLES Final Result Performing Organization Address [facility] de Phone Number [place] [phone] [place] [address] * (ABNORMAL) Troponin T high-sensitivity 6-hour (10/17/2024 9:59 PM CDT) Pathologist [facility] Trop T hs 118(H) <=22 ng/L Comment: Interpretive Data For further hscTnT resources including the diagnostic algorithm and an aid in interpretation, copy and paste this link: https://nrl.testcatalog.org/show/hsTrop Current Interpretive Data last revised 2020. Testing performed by: [address] [address] Trop T hs delta See Comment ng/L PAVEL ROSADO Comment: Inappropriate collection time to report a delta. Testing performed by: [address], [place]., [address] Trop T hs pct delta See Comment % PAVEL ROSADO Comment: Inappropriate collection time to report a delta. Testing performed by: [address], [place]., [address] Trop T hs interp See Comment PAVEL ROSADO Comment: Inappropriate collection time to report a delta. Testing performed by: [address], [place]., [address] Blood 10/17/2024 9:59 PM CDT 10/17/2024 10:04 PM CDT Eugenio Myrick DO LAB BLOOD ORDERABLES Final Result Performing Organization Address City/State/[facility] Co de Phone Number PAVEL [address] [facility] Department [place] [address] * (ABNORMAL) eGFR (10/17/2024 9:59 PM CDT) eGFR 11(L) >=60 mL/min/1. 73 m2 Comment: Interpretive Data Reference Interval Normal >/= 90 mL/min/1.73m2 Mildly decreased* 60 - 89 mL/min/1.73m2 Mildly to moderately decreased 45 - 59 mL/min/1.73m2 Moderately to severely decreased 30 - 44 mL/min/1.73m2 Severely decreased 15 - 29 mL/min/1.73m2 Kidney Failure < 15 mL/min/1.73m2 *Relative to young adult level Estimated glomerular filtration rate is determined by the 2020 CKD-EPI equation recommended by the National Kidney Foundation (A Unifying Approach to GFR Estimation: Recommendations of the NKF-ASK Task Force on Reassessing the Inclusion of Race in Diagnosing Kidney Disease, JASN 2020). The CKD-EPI equation should not be used for patients with unstable renal function and has not been validated in children and those over 70. Current interpretive data was last reviewed 2021. Testing performed by: [address], [place]., [address] Blood 10/17/2024 9:59 PM CDT 10/17/2024 10:04 PM CDT Honorio Mosqueda PAYROLL MANAGER LAB BLOOD ORDERABLES Final Result Performing Organization Address [facility] Co de Phone Number [address] [address] * (ABNORMAL) Calcium, ionized (10/17/2024 9:59 PM CDT) [facility] Calcium, Ionized 5.17(H) 4.50 - 5.10 mg/dL Blood 10/17/2024 9:59 PM CDT 10/18/2024 12:34 AM CDT Honorio Mosqueda PAYROLL MANAGER LAB BLOOD ORDERABLES Final Result Performing Organization Address City/[facility] Co de Phone Number [address] [place] [address] * Vitamin D 25 hydroxy (10/17/2024 9:59 PM CDT) [facility] Vitamin D 25-OH 37.0 30.0 - 80.0 ng/mL Blood 10/17/2024 9:59 PM CDT 10/18/2024 12:34 AM CDT Honorio Mosqueda PAYROLL MANAGER LAB BLOOD ORDERABLES Final Result Performing Organization Address City/[facility] Co de Phone Number [address] [address] * Phosphorus (10/17/2024 9:59 PM CDT) [facility] Phosphorus, pl 3.3 2.3 - 4.5 mg/dL Comment:Testing performed by : [facility], [address] [place] [address]., [address] Blood 10/17/2024 9:59 PM CDT 10/17/2024 10:04 PM CDT Honorio Guptaanna Mosqueda PAYROLL MANAGER LAB BLOOD ORDERABLES Final Result Performing Organization Address [facility] Co de Phone Number PAVEL [address] [address] * (ABNORMAL) PTH (10/17/2024 9:59 PM CDT) [facility] PTH 130(H) 15 - 65 pg/mL Comment:Testing performed by : [address] [address] Blood 10/17/2024 9:59 PM CDT 10/17/2024 10:04 PM CDT Honorio Mosqueda PAYROLL MANAGER LAB BLOOD ORDERABLES Final Result Performing Organization Address [facility] Phone Number Y[address] [address] * (ABNORMAL) Comprehensive metabolic panel (10/17/2024 9:59 PM CDT) [facility] Sodium 136 135 - 145 mmol/L Comment:Testing performed by : [address] [address] Potassium, pl 4.3 3.3 - 4.9 mmol/L PAVEL Comment:Testing performed by : [address] [address] Chloride 99 97 - 110 mmol/L PAVEL Comment:Testing performed by : [address] [address] CO2 22 22 - 32 mmol/L PAVEL Comment:Testing performed by : [address] [address] Anion gap 15 2 - 15 mmol/L PAVEL Comment:Testing performed by : [address] [address] BUN 65(H) 6 - 25 mg/dL PAVEL Comment:Testing performed by : [address] [address] Creatinine 5.22(H) 0.80 - 1.30 mg/dL PAVEL Comment:Testing performed by : [address] [address] Glucose 244(H) 70 - 199 mg/dL PAVEL Comment: Delta - Results Reviewed Interpretive Data Fasting glucose >/= 126 mg/dl is diagnostic for diabetes. Fasting is defined as no caloric intake for at least 8 hours. Fasting glucose between 100 mg/dl to 125 mg/dl is diagnostic of prediabetes. In a patient with classic symptoms of hyperglycemia or hyperglycemic crisis, a random glucose >/= 200 mg/dl is diagnostic for diabetes. In the absence of unequivocal hyperglycemia, results should be confirmed by repeat testing. The classification and Diagnosis of Diabetes Diabetes Care 202; 46: S19-S40. Current interpretive data was last revised 2022. Testing performed by: [address] [address] Calcium 10.4(H) 8.5 - 10.3 mg/dL PAVEL Comment:Testing performed by : [address] [address] Bilirubin, total 0.4 0.1 - 1.2 mg/dL PAVEL Comment:Testing performed by : [address] [address] Protein, pl 7.0 6.5 - 8.5 g/dL PAVEL Comment:Testing performed by : [address] [address] Albumin 3.4(L) 3.5 - 5.0 g/dL PAVEL Comment:Testing performed by : [address] [address] Alk phos 88 40 - 130 Units/L PAVEL Comment:Testing performed by : [address] [address] ALT 21 7 - 55 Units/L PAVEL Comment:Testing performed by : [address], [address] AST 26 10 - 50 Units/L PAVEL Comment:Testing performed by : [address] [place]., [address] Blood 10/17/2024 9:59 PM CDT 10/17/2024 10:04 PM CDT Honorio Mosqueda NP LAB BLOOD ORDERABLES Final Result Performing Organization Address [facility] de Phone Number [address] [address] * MRSA Only (Staphylococcus aureus) PCR Nasal (10/17/2024 8:16 PM CDT) PCR Scrn, Methicillin resistant Staphylococcus aureus (MRSA) Not Detected Not Detected Comment: Interpretive Data Testing performed using Nucleic Acid Amplification with the [employer] Xpert MRSA NxG Assay. This assay detects target DNA from mecA, mecC and the SCCmec insertion site of Staphylococcus aureus using Real-Time PCR and has been cleared by the FDA. Performance characteristics have been verified by the [facility]. Current Interpretive Data was last revised on 2023 Testing performed by: [facility], [address] [place] [address]., [address] Nasal 10/17/2024 8:16 PM CDT 10/17/2024 8:21 PM CDT Honorio Mosqueda NP LAB MICROBIOLOGY - G ENERAL ORDERABLES Final Result Performing Organization Address [facility] de Phone Number [address] [address] * (ABNORMAL) Troponin T high-sensitivity 4-hour (10/17/2024 5:47 PM CDT) Trop T hs 128(H) <=22 ng/L Comment: Interpretive Data For further hscTnT resources including the diagnostic algorithm and an aid in interpretation, copy and paste this link: https://nrl.testcatalog.org/show/hsTrop Current Interpretive Data last revised 2020. Testing performed by: [address] [address] Trop T hs pct delta -10 % PAVEL Comment:Testing performed by : [address] [address] Trop T hs interp Equivocal PAVEL Comment:Testing performed by : [address] [address] Blood 10/17/2024 5:47 PM CDT 10/17/2024 5:51 PM CDT Eugenio Myrick DO LAB BLOOD ORDERABLES Final Result Performing Organization Address [facility] Co de Phone Number [address] [place] [address] * Sepsis Lactate w/ Reflex (10/17/2024 5:47 PM CDT) Pathologist [facility] Sepsis Lactate 1.2 0.7 - 2.0 mmol/L Comment:Testing performed by : [address] [address] Blood 10/17/2024 5:47 PM CDT 10/17/2024 5:51 PM CDT Jonathan Lentz DO LAB BLOOD ORDERABLES Final Result Performing Organization Address [facility] de Phone Number [address] [address] * (ABNORMAL) POC Blood Gas and Chemistries, Venous - (10/17/2024 4:27 PM CDT) Pathologist [facility] pH,ericka POC 7.47(H) 7.32 - 7.43 Comment:Testing performed by : [address] [address] pCO2, ericka POC 30(L) 40 - 50 mmHg PAVEL ROSADO Comment:Testing performed by : [address] [address] pO2,ericka POC 77 mmHg PAVEL Comment: Interpretive Data No reference range established. Current interpretive data was last revised 2020. Testing performed by: [address] [address] HCO3, ericka (Calc) POC 22 20 - 30 mmol/L PAVEL ROSADO Comment:Testing performed by : [address] [address] Base excess, ericka POC -1 mmol/L PAVEL ROSADO Comment: Interpretive Data No reference range established. Current interpretive data was last revised 2020. Testing performed by: [address] [address] Blood 10/17/2024 4:27 PM CDT 10/17/2024 4:27 PM CDT us Jonathan Lentz DO LAB POCT ORDERABLES - DEVIC E Final Result PAVEL ROSADO [address] [facility] Department [place] [address] * NM Pulmonary Perfusion Imaging (10/17/2024 3:49 PM CDT) Anatomical Region Laterality Modality Body N/A Nuclear Medicine 10/17/2024 3:58 PM CDT Narrative 10/17/2024 4:01 PM CDT EXAM DESCRIPTION: NM PULMONARY PERFUSION IMAGING RADIOPHARMACEUTICAL: 6 mCi Tc-99m MAA via a left forearm IV site REASON FOR STUDY: Chest pain. TECHNIQUE: Standard multi-planar perfusion scintigrams were obtained. COMPARISON: Chest radiograph 10/17/2024 FINDINGS: Perfusion images obtained in multiple projections show overall diminished perfusion to the right lung. There is mild heterogeneity and deposition of radiotracer in the left lung. No definite large segmental perfusion defects are seen. IMPRESSION: 1. Low probability for pulmonary embolism. Globally diminished perfusion of the right lung likely related to opacities seen on the chest radiograph. However, no large segmental perfusion defects are seen. THIS IS AN ELECTRONICALLY VERIFIED FINAL REPORT 10/17/2024 4:01 PM - Electronically signed by Oliverio Steinberg M.D. LB: JC Report ID: [id number] Reading Location: [id number] Procedure Note Oliverio Steinberg MD - 10/17/2024 EXAM DESCRIPTION: NM PULMONARY PERFUSION IMAGING RADIOPHARMACEUTICAL: 6 mCi Tc-99m MAA via a left forearm IV site REASON FOR STUDY: Chest pain. TECHNIQUE: Standard multi-planar perfusion scintigrams were obtained. COMPARISON: Chest radiograph 10/17/2024 FINDINGS: Perfusion images obtained in multiple projections show overall diminished perfusion to the right lung. There is mild heterogeneity and depositionof radiotracer in the left lung. No definite large segmental perfusiondefects are seen. IMPRESSION: 1. Low probability for pulmonary embolism. Globally diminishedperfusion of the right lung likely related to opacities seen on the chestradiograph. However, no large segmental perfusion defects are seen. THIS IS AN ELECTRONICALLY VERIFIED FINAL REPORT 10/17/2024 4:01 PM - Electronically signed by Oliverio Steinberg M.D. LB: JC Report ID: [id number] Reading Location: [id number] Jonathan Lentz DO IMG NM PROCEDURES Final Res ult * Blood culture Blood (10/17/2024 3:10 PM CDT) Report Final Report: No growth Comment:Testing performed by : [facility], [address] [facility], [place]., [address] Blood 10/17/2024 3:10 PM CDT 10/17/2024 7:29 PM CDT Narrative YUNIORNER - 10/22/2024 7:01 AM CDT Collection->Peripheral Received only aerobic blood culture bottle 1. Blood cultures are incubated for 4 days on a continuously monitored blood culture system. The first report of a negative culture is issued within 24 hours of receipt of the specimen in the laboratory. 2. Positive culture results are reported as soon as they are detected. 3. The most important factor for detection of microbes in the setting of bloodstream infection is the volume of blood submitted for culture. Failure to collect an optimal blood volume can result in false negative blood cultures. 4. For pediatric patients, the recommended blood volume to collect follows a weight based strategy. See the electronic test catalog for collection instructions. 5. For positive blood cultures, a rapid molecular test may be performed for organism identification using the siena ePlex blood culture identification panel for gram positive (BCID-GP) and gram negative (BCID-GN) organisms. This nucleic acid amplification test detects microbial DNA in positive blood culture broth. This assay has been cleared by the [place] Food and Drug Administration and its performance characteristics have been verified by the [facility]. For questions about this culture, contact the Microbiology Laboratory at [phone]. Interpretive data was last revised on 24. us Jonathan Lentz DO LAB MICROBIOLOGY - GENERAL ORDERABLES Final Result PAVEL [address] [facility] Department [place] [address] * Blood culture Blood (10/17/2024 3:10 PM CDT) Report Final Report: No growth Comment:Testing performed by : [facility], [address] [facility], [place]., [address] Blood 10/17/2024 3:10 PM CDT 10/17/2024 7:30 PM CDT [facility] - 10/22/2024 7:01 AM CDT Collection->Peripheral 1. Blood cultures are incubated for 4 days on a continuously monitored blood culture system. The first report of a negative culture is issued within 24 hours of receipt of the specimen in the laboratory. 2. Positive culture results are reported as soon as they are detected. 3. The most important factor for detection of microbes in the setting of bloodstream infection is the volume of blood submitted for culture. Failure to collect an optimal blood volume can result in false negative blood cultures. 4. For pediatric patients, the recommended blood volume to collect follows a weight based strategy. See the electronic test catalog for collection instructions. 5. For positive blood cultures, a rapid molecular test may be performed for organism identification using the [employer]ien[employer] ePlex blood culture identification panel for gram positive (BCID-GP) and gram negative (BCID-GN) organisms. This nucleic acid amplification test detects microbial DNA in positive blood culture broth. This assay has been cleared by the [place] Food and Drug Administration and its performance characteristics have been verified by the [facility]. For questions about this culture, contact the Microbiology Laboratory at [phone]. Interpretive data was last revised on 24. Jonathan Lentz DO LAB MICROBIOLOGY - GENERAL ORDERABLES Final Result Performing Organization Address City/[facility] Co de Phone Number PAVEL [address] [place] [address] * (ABNORMAL) Troponin T high-sensitivity 2-hour (10/17/2024 2:55 PM CDT) Pathologist [facility] Trop T hs 133(H) <=22 ng/L Comment: Interpretive Data For further hscTnT resources including the diagnostic algorithm and an aid in interpretation, copy and paste this link: https://nrl.testcatalog.org/show/hsTrop Current Interpretive Data last revised 2020. Testing performed by: [address] [address] Trop T hs pct delta -6 % PAVEL Comment:Testing performed by : [address] [address] Trop T hs interp Equivocal PAVEL Comment:Testing performed by : [address] [address] Blood 10/17/2024 2:55 PM CDT 10/17/2024 2:59 PM CDT Eugenio Myrick DO LAB BLOOD ORDERABLES Final Result Performing Organization Address [facility] Co de Phone Number PAVEL [address] [place], [place] [id number] * Influenza A/B, RSV, and COVID-19 PCR Nasopharyngeal (10/17/2024 2:55 PM CDT) [facility] COVID-19 RNA Negative Negative Comment:Testing performed by : [address] [address] Influenza A RNA Negative Negative PAVEL Comment:Testing performed by : [address] [address] Influenza B RNA Negative Negative [facility] Comment:Testing performed by : [address] [address] RSV RNA Negative Negative [facility] Comment: Interpretive data: Testing performed by [facility]. This test is performed using the [employer] Xpert Xpress CoV-2/Flu/RSV plus assay. This is a multiplex, real-time reverse transcriptase PCR assay intended for the qualitative detection of nucleic acid from SARS-CoV-2, influenza A, influenza B, and respiratory syncytial virus. This assay has been cleared by the [place] Food and Drug administration. The performance characteristics have been verified by the [facility]. Results must be considered in the clinical context, and a negative result does not rule out infection. Interpretive Data last revised 2023 Testing performed by: [address] [address] Nasopharyngeal 10/17/2024 2: 55 PM CDT 10/17/2024 2:58 PM CDT Narrative PAVEL - 10/17/2024 3:38 PM CDT Is the Patient experiencing symptoms consistent with COVID?->Yes Li SALC[facility] LAB MICROBIOLOGY - GENERAL [place] Final Result [facility] [address] [facility] Department of Laboratories [place], [place] [id number] * (ABNORMAL) Sepsis Lactate w/ Reflex (10/17/2024 2:55 PM CDT) Pathologist [facility] Sepsis Lactate 2.1(H) 0.7 - 2.0 mmol/L Comment:Testing performed by : [address] [address] Blood 10/17/2024 2:55 PM CDT 10/17/2024 2:58 PM CDT Jonathan Lentz DO LAB BLOOD ORDERABLES Final Result PAVEL [address] [facility] Department [place] [address] * (ABNORMAL) Pro B-type natriuretic peptide (10/17/2024 2:55 PM CDT) NT-proBNP 15,819(H) <=300 pg/mL Comment: Interpretive Comments: A. Dyspnea in Acute Care Setting All Ages: < 300 pg/ml, acute heart failure unlikely. < 50 yrs: 300 - 450 pg/ml, further investigation warranted. > 450 pg/ml, acute heart failure likely. 50 - 74 yrs: 300 - 900 pg/ml, further investigation warranted. > 900 pg/ml, acute heart failure likely . > or = 75 yrs: 450 - 1800 pg/ml, further investigation warranted. > 1800 pg/ml, acute heart failure likely. B. Non-acute Setting < 75 yrs < 125 pg/ml, rules out heart failure. > or = 125 pg/ml, further investigation warranted. > or = 75 yrs < 450 pg/ml, rules out heart failure. > or = 450 pg/ml, further investigation warranted. - Knowledge of each individual patient's NT-proBNP range may be more useful than using similar cut-points for every patient. Please note that marked elevations in NT-proBNP levels may be observed in state other than Left Ventricular Congestive Failure, including: acute coronary syndromes, right heart strain/failure (including pulmonary embolism and cor pulmonale), critical illness, renal failure, as well as advanced age. - References: 1. Umu SZYMANSKI et.al. Eur Heart J. 2006:27:330-337. 2. Froylan RW, Kiarra AM. J. AM Uday Cardiol: Cardiovasc Imag. 2009;2: 216- 225. Interpretive Data Last Revised Date: 2018. Testing performed by: [facility], [address] [place] [address]., [id number] Blood 10/17/2024 2:55 PM CDT 10/17/2024 2:59 PM CDT Jonathan Lentz DO LAB BLOOD ORDERABLES Final Result P[facility]EL [address] [facility] Department of Laboratories [place], [place] [id number] * XR Chest 1 Vw Portable (if patient condition/safety warrant portable) (10/17/2024 1:25 PM CDT) Anatomical Region Laterality Modality Body, Chest N/A Computed Radiogr aphy 10/17/2024 1:56 PM CDT Narrative 10/17/2024 1:57 PM CDT EXAM DESCRIPTION: XR CHEST 1 VIEW REASON FOR STUDY: Shortness of breath Pt states sob and cough since 10/14/24 TECHNIQUE: Single frontal radiographic view(s) of the chest. COMPARISON: 04/17/2021 FINDINGS: There is cardiomegaly. There is mild prominence of the pulmonary vasculature. There is no definite evidence of a pneumothorax. There are patchy airspace opacities in the right lung and left lung base. There is a likely small right pleural effusion. The osseous structures are acutely grossly unremarkable. IMPRESSION: Patchy airspace opacities in the right lung and left lung base, which is concerning for multifocal airspace disease. Continued follow-up to resolution is recommended as clinically indicated. Cardiomegaly with mild prominence of pulmonary vasculature and likely small right pleural effusion. THIS IS AN ELECTRONICALLY VERIFIED FINAL REPORT 10/17/2024 1:57 PM - Electronically signed by Virginie Conrad D.O. PS: PS Report ID: [id number] Reading Location: [id number] Procedure Note Virginie Conrad DO - 10/17/2024 EXAM DESCRIPTION: XR CHEST 1 VIEW REASON FOR STUDY: Shortness of breath Pt states sob and cough since 10/14/24 TECHNIQUE: Single frontal radiographic view(s) of the chest. COMPARISON: 04/17/2021 FINDINGS: There is cardiomegaly. There is mild prominence of thepulmonary vasculature. There is no definite evidence of a pneumothorax. There are patchy airspace opacities in the right lung and left lung base. There piper likely small right pleural effusion. The osseous structures are acutely grossly unremarkable. IMPRESSION: Patchy airspace opacities in the right lung and left lung base, which is concerning for multifocal airspace disease. Continued follow-up toresolution is recommended as clinically indicated. Cardiomegaly with mild prominence of pulmonary vasculature and likelysmall right pleural effusion. THIS IS AN ELECTRONICALLY VERIFIED FINAL REPORT 10/17/2024 1:57 PM - Electronically signed by Virginie Conrad D.O. PS: PS Report ID: [id number] Reading Location: [place] [address] Jonathan Lentz DO IMG XR PROCEDURES Final Res ult * ECG 12 lead (10/17/2024 1:15 PM CDT) Ventricular Rate EKG/Min 101 BPM [facility] Atrial Rate [address] [facility] NH-Interval (MSEC) [address] [facility] QRS-Interval (MSEC) [address] [facility] QT-Interval (MSEC) [address] [facility] QTc [address] [facility] P Nunn [address] [facility] R Nunn [address] [facility] T Nunn [address] [facility] Diagnosis Sinus tachycardia with Premature supraventricular complexes Right bundle branch block Abnormal ECG When compared with ECG of 12-JAN-2004 11:38, Premature supraventricular complexes are now Present Right bundle branch block is now Present Confirmed by ASHLEY WYNNE M.D. ([id number]) on 10/18/2024 9:51:[address] [facility] 10/17/2024 1:15 PM CDT 10/18/2024 9:51 PM CDT Jonathan Lentz DO ECG ORDERABLES Final Resul t [facility] * (ABNORMAL) Troponin T high-sensitivity series (baseline, 2hr, 4hr, 6hr) (10/17/2024 1:12 PM CDT) Trop T hs 142(H) <=22 ng/L Comment: Interpretive Data For further hscTnT resources including the diagnostic algorithm and an aid in interpretation, copy and paste this link: https://nrl.testcatalog.org/show/hsTrop Current Interpretive Data last revised 2020. Testing performed by: [facility], [address] [place] [address]., [id number] Blood 10/17/2024 1:12 PM CDT 10/17/2024 1:40 PM CDT Jonathan Lentz LAB BLOOD ORDERABLES Final Result [facility] [address] [facility] Department [place] [address] * (ABNORMAL) eGFR (10/17/2024 1:12 PM CDT) eGFR 12(L) >=60 mL/min/1. 73 m2 Comment: Interpretive Data Reference Interval Normal >/= 90 mL/min/1.73m2 Mildly decreased* 60 - 89 mL/min/1.73m2 Mildly to moderately decreased 45 - 59 mL/min/1.73m2 Moderately to severely decreased 30 - 44 mL/min/1.73m2 Severely decreased 15 - 29 mL/min/1.73m2 Kidney Failure < 15 mL/min/1.73m2 *Relative to young adult level Estimated glomerular filtration rate is determined by the 2020 CKD-EPI equation recommended by the National Kid[employer] (A Unifying Approach to GFR Estimation: Recommendations of the NKF-ASK Task Force on Reassessing the Inclusion of Race in Diagnosing Kidney Disease, JASN 202). The CKD-EPI equation should not be used for patients with unstable renal function and has not been validated in children and those over 70. Current interpretive data was last reviewed 2021. Testing performed by: [facility], [address] [place] [address]., [id number] Blood 10/17/2024 1:12 PM CDT 10/17/2024 1:40 PM CDT Jonathan Lentz DO LAB BLOOD ORDERABLES Final Result [facility] [address] [facility] Department [place] [address] * (ABNORMAL) Differential, auto (10/17/2024 1:12 PM CDT) Neutrophil abs 13.0(H) 1.5 - 6.5 K/cumm Comment:Testing performed by : [address] [address] Imm gran abs 0.1 0.0 - 0.1 K/cumm PAVEL Comment:Testing performed by : [address] [address] Lymphocyte abs 0.6(L) 0.8 - 3.3 K/cumm [facility]AVEL Comment:Testing performed by : [address] [address] Monocyte abs 1.5(H) 0.2 - 0.8 K/cumm [facility]EL Comment:Testing performed by : [address] [address] Eosinophil abs 0.0 0.0 - 0.5 K/cumm PAVEL Comment:Testing performed by : [address] [address] Basophil abs 0.0 0.0 - 0.1 K/cumm [facility]EL Comment:Testing performed by : [address] [address] Neutrophil pct 85.3 % [facility]EL Comment: Interpretive Data Percent cell count reference ranges are not reported, since discordance with absolute values may lead to misinterpretation of CBC data. Current Interpretive Data was last revised on 2017. Testing performed by: [address] [address] Imm gran pct 0.6 % [facility] Comment: Interpretive Data Percent cell count reference ranges are not reported, since discordance with absolute values may lead to misinterpretation of CBC data. Current Interpretive Data was last revised on 2017. Testing performed by: [address] [address] Lymphocyte pct 3.9 % [facility] Comment: Interpretive Data Percent cell count reference ranges are not reported, since discordance with absolute values may lead to misinterpretation of CBC data. Current Interpretive Data was last revised on 2017. Testing performed by: [address] [address] Monocyte pct 10.0 % [facility] Comment: Interpretive Data Percent cell count reference ranges are not reported, since discordance with absolute values may lead to misinterpretation of CBC data. Current Interpretive Data was last revised on 2017. Testing performed by: [address] [address] Eosinophil pct 0.1 % [facility] Comment: Interpretive Data Percent cell count reference ranges are not reported, since discordance with absolute values may lead to misinterpretation of CBC data. Current Interpretive Data was last revised on 2017. Testing performed by: [address] [address] Basophil pct 0.1 % [facility] Comment: Interpretive Data Percent cell count reference ranges are not reported, since discordance with absolute values may lead to misinterpretation of CBC data. Current Interpretive Data was last revised on 2017. Testing performed by: [address] [address] Blood 10/17/2024 1:12 PM CDT 10/17/2024 1:40 PM CDT Jonathan Lentz DO LAB BLOOD ORDERABLES Final Result [facility] [address] [facility] Department [place] [address] * (ABNORMAL) CBC with auto differential (10/17/2024 1:12 PM CDT) WBC 15.3(H) 3.8 - 9.9 K/cumm Comment:Testing performed by : [address] [address] Hgb 9.7(L) 13.0 - 17.5 g/dL [facility] Comment:Testing performed by : [address] [address] Hct 29.8(L) 38.9 - 50.3 % [facility] Comment:Testing performed by : [address] [address] Plt 348 150 - 400 K/cumm [facility] Comment:Testing performed by : [address] [address] MPV 9.8 9.1 - 12.3 fL [facility] Comment:Testing performed by : [address] [address] RBC 3.24(L) 4.30 - 5.80 M/cumm P[facility]EL Comment:Testing performed by : [address] [address] MCV 92.0 81.3 - 96.4 fL [facility] Comment:Testing performed by : [address] [address] MCH 29.9 27.1 - 33.3 pg [facility] Comment:Testing performed by : [address] [address] MCHC 32.6 32.3 - 35.7 g/dL [facility] Comment:Testing performed by : [address] [address] RDW CV 15.0(H) 11.1 - 14.9 % [facility] Comment:Testing performed by : [address], [address] RDW SD 51.2(H) 35.7 - 48.1 fL [facility] Comment:Testing performed by : [address], [address] NRBC abs 0.00 0.00 - 0.01 K/cumm [facility] Comment:Testing performed by : [address] [address] Blood 10/17/2024 1:12 PM CDT 10/17/2024 1:40 PM CDT Jonathan Lentz LAB BLOOD ORDERABLES Final Result [facility] [address] [address] * Magnesium (10/17/2024 1:12 PM CDT) Pathologist [facility] Magnesium 1.5 1.4 - 2.5 mg/dL Comment:Testing performed by : [address] [address] Blood 10/17/2024 1:12 PM CDT 10/17/2024 1:40 PM CDT Jonathan Lentz LAB BLOOD ORDERABLES Final Result Performing Organization Address City/[facility] Co de Phone Number [facility]AV[facility] [address] [address] * (ABNORMAL) Comprehensive metabolic panel (10/17/2024 1:12 PM CDT) [facility] Sodium 136 135 - 145 mmol/L Comment:Testing performed by : [address] [address] Potassium, pl 4.5 3.3 - 4.9 mmol/L [facility] Comment: Hemolyzed; Potassium value may be falsely elevated by as much as 1.0 mmol/L. Suggest redraw and reanalysis. Testing performed by: [address] [address] Chloride 98 97 - 110 mmol/L [facility] Comment:Testing performed by : [address] [address] CO2 23 22 - 32 mmol/L [facility] Comment:Testing performed by : [address] [address] Anion gap 15 2 - 15 mmol/L [facility] Comment:Testing performed by : [address] [address] BUN 56(H) 6 - 25 mg/dL [facility] Comment:Testing performed by : [address] [address] Creatinine 4.86(H) 0.80 - 1.30 mg/dL [facility] Comment:Testing performed by : [address] [address] Glucose 119 70 - 199 mg/dL [facility] Comment: Interpretive Data Fasting glucose >/= 126 mg/dl is diagnostic for diabetes. Fasting is defined as no caloric intake for at least 8 hours. Fasting glucose between 100 mg/dl to 125 mg/dl is diagnostic of prediabetes. In a patient with classic symptoms of hyperglycemia or hyperglycemic crisis, a random glucose >/= 200 mg/dl is diagnostic for diabetes. In the absence of unequivocal hyperglycemia, results should be confirmed by repeat testing. The classification and Diagnosis of Diabetes Diabetes Care 202; 46: S19-S40. Current interpretive data was last revised 2022. Testing performed by: [address] [address] Calcium 10.5(H) 8.5 - 10.3 mg/dL [facility] Comment:Testing performed by : [address] [address] Bilirubin, total 0.6 0.1 - 1.2 mg/dL [facility] Comment:Testing performed by : [address] [address] Protein, pl 7.3 6.5 - 8.5 g/dL [facility] Comment:Testing performed by : [address] [address] Albumin 3.6 3.5 - 5.0 g/dL [facility] Comment:Testing performed by : [address] [address] Alk phos 91 40 - 130 Units/L [facility] Comment:Testing performed by : [address] [address] ALT 22 7 - 55 Units/L [facility] Comment:Testing performed by : [address] [address] AST 29 10 - 50 Units/L [facility] Comment: Hemolyzed; result may be falsely elevated Testing performed by: [address] [address] Blood 10/17/2024 1:12 PM CDT 10/17/2024 1:40 PM CDT Jonathan Angel Brownhu LAB BLOOD ORDERABLES Final Result Performing Organization Address City/State/[facility] Co mn Phone Number YUNIORNER [address] [facility] Department [place] [address] from Last 3 Months Insurance [facility] MEDICARE ADVANTAGE [facility] Address: [id number] [place] [address] [facility] MEDICARE ADVANTAGE [facility] Address: [address] [address] [place] [address] ([address] [address] [facility] MEDICARE ADVANTAGE [facility] Address: [facility] [address] [place] [address] Advance Directives For more information, please contact: [phone] * Full Code (Latest Code Status on File) Date Activated Date Inactivated Comments 10/17/2024 7:52 PM 10/27/2024 6:57 PM Care Teams Cold Strip Roller Relationship Specialty Start Date End Date Soraya Jauregui MD [address] [place] [id number] PCP - General Internal Medicine 03/29/24
--- OUTSIDE RECORDS SUMMARY | 2024-12-23 15:52 | XMS_ITS ---
Author Organization [facility] [address] Address [address] [place] [address] Care Team Providers Care Piano Case Maker Name Role Phone Soraya Jauregui MD Primary Care Provider Dialysis Access Sites Type Status Location Placement Date Removal Da te Hemodialysis Cath Triple 10/22/24 Right Internal Jugular Active Right Neck (side) - Anterior 10/22/2024 Hemodialysis Cath Double 10/21/24 Non-tunneled catheter Right Femoral Inactive Right Thigh - Anterior 10/21/2024 Procedures Procedure Name Priority Date/Time Associated Diagnosis [...] TUNNELED CV CATH W/PORT OR PUMP >5YO [address]84 Routine 10/25/2024 11:38 AM CDT CKD (chronic [...] PM CDT Acute hypoxic respiratory failure (HCC) DE INSJ NON-TUNNELED CENTRAL VENOUS CATH AGE 5 [...] TUNNELED CV CATH W/PORT OR PUMP >5YO 24610 Routine 10/21/2024 10:01 AM CDT CKD (chronic [...] 1:12 PM CDT DIFFERENTIAL AUTO STAT 10/17/2024 1:1 2 PM CDT TROPONIN T HIGH-SENSITIVITY SERIES (BASELINE, 2HR, 4HR, 6HR) STAT 10/17/2024 1:12 PM CDT CBC WITH AUTO DIFFERENTIAL STAT 10/17/2024 1:12 PM CDT COMPREHENSIVE METABOLIC PANEL STAT 10/17/2024 1:12 PM CDT from Last 3 Months Allergies No known [...] (two) times a day 30 tablet 11 Active ipratropium-alb uteroL (DUO-NEB) 0.5-2.5 mg/3 mL nebulizer solutionIndicat ions:Chronic obstructive pulmonary disease, unspecified COPD type (HCC) Take 3 mL by nebulization 2 (two) times a day 180 mL 3 Active Additional Information Patient taking differently:3 mL [...] 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 Chronic obstructive pulmonary disease 03/21/2024 CKD (chronic kidney disease), stage V 03/21/2024 Secondary hyperparathyroidism of renal origin Asymptomatic stenosis of left carotid artery Assessment & 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 Patient unable to answer 11/10/2024 Do you belong to any clubs o r organizations such as christian groups, unions, fraternal or athletic groups, or [...] any time in the past 12 m [facility], were you homeless or living in a skilled nursing (including now)? Patient unable to answer 11/10/2024 Personal Safety Answer Date Recorded Have you ever been in or are you currently in a harmful physical or emotional relationship or is someone making you feel afraid or unsafe? 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 Gender Identity Not on file Sexual Orientation [...] Mass Index 33.32 12/22/2024 1:09 PM CDT Results * Electrocardiogram Report (12/22/2024 3:43 PM [...] MD PhD POCUS ORDERABLES Final Re sult [id number] * (ABNORMAL) Pulmonary Function Test - (11/22/2024 4:36 PM CDT) FVC POST 4.06 3.52 - 6.12 L [facility] FEV1 POST 1.95(A) 2.52 - 4.52 L [facility] [id number] 48.03(A) 60.59 - 86.91 % [facility] [id number]% POST 0.68(A) 1.02 - 4.65 L/s [facility] PEF POST 3.36(A) 6.67 - 10.66 L/s [facility] DLCOc SB 8.46(A) 23.68 - 37.54 ml/(min*mm Hg) [facility] DLCO/VA PRE 1.70(A) 2.75 - 4.77 ml/(min*mm Hg*L) [facility] VA 4.99(A) 7.99 - 7.99 L [facility] TLC PRE 8.85 6.99 - 9.29 L [facility] VC PRE 3.88(A) 3.98 - 5.82 L [facility] IC PRE 2.83(A) 3.76 - 3.76 L [facility] FRC PL PRE 6.02(A) 3.05 - 5.02 L [facility] ERV PRE 1.05(A) 1.14 - 1.14 L [facility] RV PRE 4.97(A) 2.22 - 3.57 L [facility] VTG 6.09 L [facility] RAW PRE 4.02(A) 3.06 - 3.06 cmH2O*s/L [facility] FVC PRE 3.88 3.52 - 6.12 L [facility] FEV1 PRE 1.94(A) 2.52 - 4.52 L [facility] [id number] 50.01(A) 60.59 - 86.91 % [facility] [id number]% PRE 0.49(A) 1.02 - 4.65 L/s [facility] PEF PRE 3.40(A) 6.67 - 10.66 L/s [facility] Anatomical Region Laterality Modality PFT 11/22/2024 3:45 [...] correlation. Electronically signed by Temo Chaves MD, FCCP Pulmonary and Critical Care Medicine [facility] Rigoberto Croft MD PFT ORDERABLES [...] MD LAB BLOOD ORDERABLES Fin al Result [facility] [address] [facility] Department [place] [address] * (ABNORMAL) Differential, auto (10/27/2024 2:44 AM CDT) Pathologist [facility] Neutrophil abs 24.2(H) 1.5 - 6.5 K/cumm Imm gran abs 1.2(H) 0.0 - 0.1 K/cumm [facility] Lymphocyte abs 1.9 0.8 - 3.3 K/cumm [facility] Monocyte abs 1.3(H) 0.2 - 0.8 K/cumm [facility] Eosinophil abs 0.1 0.0 - 0.5 K/cumm [facility] Basophil abs 0.1 0.0 - 0.1 K/cumm [facility] Neutrophil pct 84.2 % [facility] Comment: Interpretive Data Percent cell count reference ranges are not reported, since discordance with absolute values may lead to misinterpretation of CBC data. Current Interpretive Data was last revised on 2017. Imm gran pct 4.1 % [facility] Comment: Interpretive Data Percent cell count reference ranges are not reported, since discordance with absolute values may lead to misinterpretation of CBC data. Current Interpretive Data was last revised on 2017. Lymphocyte pct 6.5 % [facility] Comment: Interpretive Data Percent cell count reference ranges are not reported, since discordance with absolute values may lead to misinterpretation of CBC data. Current Interpretive Data was last revised on 2017. Monocyte pct 4.5 % [facility] Comment: Interpretive Data Percent cell count reference ranges are not reported, since discordance with absolute values may lead to misinterpretation of CBC data. Current Interpretive Data was last revised on 2017. Eosinophil pct 0.2 % [facility] Comment: Interpretive Data Percent cell count reference ranges are not reported, since discordance with absolute values may lead to misinterpretation of CBC data. Current Interpretive Data was last revised on 2017. Basophil pct 0.5 % [facility] Comment: Interpretive Data Percent cell count reference ranges are not reported, since discordance with absolute values may lead to misinterpretation of CBC data. Current Interpretive Data was last revised on 2017. Blood 10/27/2024 2:44 AM CDT 10/27/2024 2:56 AM CDT Barbara Collins MD LAB BLO OD ORDERABLES Final Result [facility] [address] [facility] Department [place] [address] * (ABNORMAL) CBC with auto differential (10/27/2024 2:44 AM CDT) WBC 28.7(H) 3.8 - 9.9 K/cumm Hgb 10.1(L) 13.0 - 17.5 g/dL [facility] Hct 34.7(L) 38.9 - 50.3 % [facility] Plt 298 150 - 400 K/cumm [facility] MPV 10.3 9.1 - 12.3 fL [facility] RBC 3.44(L) 4.30 - 5.80 M/cumm [facility] MCV 100.9(H) 81.3 - 96.4 fL [facility] MCH 29.4 27.1 - 33.3 pg [facility] MCHC 29.1(L) 32.3 - 35.7 g/dL [facility] RDW CV 16.1(H) 11.1 - 14.9 % [facility] RDW SD 58.0(H) 35.7 - 48.1 fL [facility] NRBC abs 0.04(H) 0.00 - 0.01 K/cumm [facility] Blood 10/27/2024 2:44 AM CDT 10/27/2024 2:56 AM CDT Barbara Collins MD LAB BLO OD ORDERABLES Final Result [facility] [address] [facility] Department [place] [address] * (ABNORMAL) Basic metabolic panel (10/27/2024 2:44 AM CDT) Sodium 136 135 - 145 mmol/L Potassium, pl 4.8 3.3 - 4.9 mmol/L [facility] Chloride 100 97 - 110 mmol/L [facility] CO2 17(L) 22 - 32 mmol/L [facility] Anion gap 19(H) 2 - 15 mmol/L [facility] BUN 93(H) 6 - 25 mg/dL [facility] Creatinine 6.56(H) 0.80 - 1.30 mg/dL [facility] Glucose 115 70 - 199 mg/dL [facility] Comment: Interpretive Data Fasting glucose >/= [...] 2022. Calcium 8.2(L) 8.5 - 10.3 mg/dL [facility] Blood 10/27/2024 2:44 AM CDT 10/27/2024 2:57 AM CDT us Carmen Walter MD LAB BLOOD ORDERABLES Fin al Result Performing Organization Address City/[facility]/ZIP Co de Phone Number [address] [facility] [place] [address] * (ABNORMAL) eGFR (10/26/2024 2:55 AM CDT) eGFR 9(L) >=60 mL/min/1. 73 [...] Jones MD LAB BLOOD ORDERABLES Final Result Performing Organization Address City/[facility]/ZIP Co de Phone Number [address] [place] [address] * (ABNORMAL) Differential, auto (10/26/2024 2:55 AM CDT) Pathologist [facility] Neutrophil abs 23.2(H) 1.5 - 6.5 K/cumm Imm gran abs 1.5(H) 0.0 - 0.1 K/cumm [facility] Lymphocyte abs 2.2 0.8 - 3.3 K/cumm [facility] Monocyte abs 1.2(H) 0.2 - 0.8 K/cumm [facility] Eosinophil abs 0.0 0.0 - 0.5 K/cumm [facility] Basophil abs 0.1 0.0 - 0.1 K/cumm [facility] Neutrophil pct 82.2 % [facility] Comment: Interpretive Data Percent cell count reference ranges are not reported, since discordance with absolute values may lead to misinterpretation of CBC data. Current Interpretive Data was last revised on 2017. Imm gran pct 5.3 % [facility] Comment: Interpretive Data Percent cell count reference ranges are not reported, since discordance with absolute values may lead to misinterpretation of CBC data. Current Interpretive Data was last revised on 2017. Lymphocyte pct 7.7 % [facility] Comment: Interpretive Data Percent cell count reference ranges are not reported, since discordance with absolute values may lead to misinterpretation of CBC data. Current Interpretive Data was last revised on 2017. Monocyte pct 4.4 % [facility] Comment: Interpretive Data Percent cell count reference ranges are not reported, since discordance with absolute values may lead to misinterpretation of CBC data. Current Interpretive Data was last revised on 2017. Eosinophil pct 0.1 % [facility] Comment: Interpretive Data Percent cell count reference ranges are not reported, since discordance with absolute values may lead to misinterpretation of CBC data. Current Interpretive Data was last revised on 2017. Basophil pct 0.3 % [facility] Comment: Interpretive Data Percent cell count reference ranges are not reported, since discordance with absolute values may lead to misinterpretation of CBC data. Current Interpretive Data was last revised on 2017. Blood 10/26/2024 2:55 AM CDT 10/26/2024 3:32 AM CDT Barbara Billss MD LAB BLO OD ORDERABLES Final Result Performing Organization Address [facility] Co de Phone Number [facility] [address] [place] [address] * (ABNORMAL) CBC with auto differential (10/26/2024 2:55 AM CDT) [facility] WBC 28.2(H) 3.8 - 9.9 K/cumm Hgb 9.7(L) 13.0 - 17.5 g/dL [facility] Hct 30.2(L) 38.9 - 50.3 % [facility] Plt 414(H) 150 - 400 K/cumm [facility] MPV 9.7 9.1 - 12.3 fL [facility] RBC 3.22(L) 4.30 - 5.80 M/cumm [facility] MCV 93.8 81.3 - 96.4 fL [facility] MCH 30.1 27.1 - 33.3 pg [facility] MCHC 32.1(L) 32.3 - 35.7 g/dL [facility] RDW CV 15.5(H) 11.1 - 14.9 % [facility] RDW SD 52.6(H) 35.7 - 48.1 fL [facility] NRBC abs 0.02(H) 0.00 - 0.01 K/cumm [facility] Blood 10/26/2024 2:55 AM CDT 10/26/2024 3:32 AM CDT Barbara Collins MD LAB BLO OD ORDERABLES Final Result Performing Organization Address City/[facility]/ZIP Co de Phone Number [address] [employer] [place], [place] [id number] * (ABNORMAL) Basic metabolic panel (10/26/2024 2:55 AM CDT) [facility] Sodium 139 135 - 145 mmol/L Potassium, pl 4.7 3.3 - 4.9 mmol/L [facility] Chloride 98 97 - 110 mmol/L [facility] CO2 28 22 - 32 mmol/L [facility] Anion gap 13 2 - 15 mmol/L [facility] BUN 79(H) 6 - 25 mg/dL [facility] Creatinine 5.97(H) 0.80 - 1.30 mg/dL [facility] Glucose 107 70 - 199 mg/dL [facility] Comment: Interpretive Data Fasting glucose >/= [...] 2022. Calcium 9.1 8.5 - 10.3 mg/dL [facility] Blood 10/26/2024 2:55 AM CDT 10/26/2024 3:31 AM CDT us Uday Jones MD LAB BLOOD ORDERABLES Final Result [facility] [address] [facility] Department [place] [address] * CT Chest Abdomen Pelvis WO Contrast [...] by Jonathan Romero M.D. T: Report ID: [id number] Reading Location: [place] [address] Procedure Note Jonathan Romero MD - 10/25/2024 [...] by Jonathan Romero M.D. T: Report ID: [id number] Reading Location: [place] [address] Jah Vargas MD IMG CT PROCEDURES Final Resu lt * (ABNORMAL) Protime-INR (10/25/2024 1:04 PM CDT) PT 15.8(H) 12.0 - 14.6 sec Comment:Ref Range High INR 1.2 0.9 - 1.2 [facility] Comment: Ref Range High Interpretive data Oral anticoagulant therapeutic ranges: Venous thromboembolism prophylaxis or treatment: 2.0-3.0 CARDIOLOGY Standard range: 2.0-3.0 High-intensity range: 2.5-3.5 Refer to indication-specific guidelines for appropriate target ranges for prosthetic heart valve replacement. Current interpretive data was last revised on 2019. Blood 10/25/2024 1:04 PM CDT 10/25/2024 1:13 PM CDT Narrative [facility] - 10/25/2024 1:23 PM CDT Baseline prior to apixaban initiation. Carlos Castro MD LAB BLOOD ORDERABLES F inal Result [facility] [address] [facility] Department [place] [address] * (ABNORMAL) Hepatic function panel (10/25/2024 1:04 PM CDT) Bilirubin, total 0.4 0.1 - 1.2 mg/dL Bilirubin, direct 0.2 0.1 - 0.3 mg/dL [facility] Protein, pl 6.4(L) 6.5 - 8.5 g/dL [facility] Albumin 3.5 3.5 - 5.0 g/dL [facility] Alk phos 73 40 - 130 Units/L [facility] ALT 30 7 - 55 Units/L [facility] AST 23 10 - 50 Units/L [facility] Blood 10/25/2024 1:04 PM CDT 10/25/2024 1:13 PM CDT Narrative [facility] - 10/25/2024 1:36 PM CDT Baseline prior to apixaban initiation. us Carlos Castro MD LAB BLOOD ORDERABLES F inal Result [facility] [address] [facility] Department [place] [address] * XR Chest 1 View (10/25/2024 12:25 [...] 12:32 PM - Electronically signed by Oliverio GREENE T: Report ID: [id number] Reading Location: [id number] Procedure Note Oliverio Steinberg MD - 10/25/2024 [...] Oliverio Steinberg M.D. LB T: Report ID: [id number] Reading Location: [id number] Lucius Jauregui MD IMG XR PROCEDURES Final Result * INSERT TUNNELED CV CATH W/PORT OR PUMP >5YO [id number] (10/25/2024 11:38 AM CDT) Anatomical Region Laterality [...] MD LAB BLOOD ORDERABLES Final Resul t [facility] [address] [facility] Department [place] [address] * Heparin anti factor Xa [...] 10/25/2024 5:19 AM CDT us Bonita Johnson NP LAB BLOOD ORDERABLES Cherise l Result [facility] [address] [facility] Department [place] [address] * (ABNORMAL) eGFR (10/25/2024 3:26 AM CDT) eGFR 11(L) >=60 mL/min/1. 73 [...] MD LAB BLOOD ORDERABLES Fin al Result [place] [id number] [facility] Department [place] [address] * (ABNORMAL) Differential, auto (10/25/2024 3:26 AM CDT) Pathologist [facility] Neutrophil abs 24.9(H) 1.5 - 6.5 K/cumm Imm gran abs 2.8(H) 0.0 - 0.1 K/cumm [facility] Lymphocyte abs 1.8 0.8 - 3.3 K/cumm [facility] Monocyte abs 1.0(H) 0.2 - 0.8 K/cumm [facility] Eosinophil abs 0.0 0.0 - 0.5 K/cumm [facility] Basophil abs 0.2(H) 0.0 - 0.1 K/cumm [facility] Neutrophil pct 81.3 % [facility] Comment: Interpretive Data Percent cell count reference ranges are not reported, since discordance with absolute values may lead to misinterpretation of CBC data. Current Interpretive Data was last revised on 2017. Imm gran pct 9.1 % [facility] Comment: Interpretive Data Percent cell count reference ranges are not reported, since discordance with absolute values may lead to misinterpretation of CBC data. Current Interpretive Data was last revised on 2017. Lymphocyte pct 5.8 % [facility] Comment: Interpretive Data Percent cell count reference ranges are not reported, since discordance with absolute values may lead to misinterpretation of CBC data. Current Interpretive Data was last revised on 2017. Monocyte pct 3.1 % [facility] Comment: Interpretive Data Percent cell count reference ranges are not reported, since discordance with absolute values may lead to misinterpretation of CBC data. Current Interpretive Data was last revised on 2017. Eosinophil pct 0.1 % [facility] Comment: Interpretive Data Percent cell count reference ranges are not reported, since discordance with absolute values may lead to misinterpretation of CBC data. Current Interpretive Data was last revised on 2017. Basophil pct 0.6 % [facility] Comment: Interpretive Data Percent cell count reference ranges are not reported, since discordance with absolute values may lead to misinterpretation of CBC data. Current Interpretive Data was last revised on 2017. Blood 10/25/2024 3:26 AM CDT 10/25/2024 3:38 AM CDT us Matteo Julian MD LAB BLOOD ORDERABLES Cherise l Result [facility] [address] [facility] Department [place] [address] * (ABNORMAL) CBC with auto differential (10/25/2024 3:26 AM CDT) WBC 30.5(H) 3.8 - 9.9 K/cumm Hgb 10.0(L) 13.0 - 17.5 g/dL [facility] Hct 32.0(L) 38.9 - 50.3 % [facility] Plt 285 150 - 400 K/cumm [facility] MPV 9.9 9.1 - 12.3 fL [facility] RBC 3.35(L) 4.30 - 5.80 M/cumm [facility] MCV 95.5 81.3 - 96.4 fL [facility] MCH 29.9 27.1 - 33.3 pg [facility] MCHC 31.3(L) 32.3 - 35.7 g/dL [facility] RDW CV 15.6(H) 11.1 - 14.9 % [facility] RDW SD 53.7(H) 35.7 - 48.1 fL [facility] NRBC abs 0.02(H) 0.00 - 0.01 K/cumm [facility] Blood 10/25/2024 3:26 AM CDT 10/25/2024 3:38 AM CDT Barbara Collins MD LAB BLO OD ORDERABLES Final Result [facility] [address] [facility] Department [place] [address] * (ABNORMAL) Basic metabolic panel (10/25/2024 3:26 AM CDT) Sodium 137 135 - 145 mmol/L Potassium, pl 5.6(H) 3.3 - 4.9 mmol/L [facility] Comment:Hemolyzed; Potassium value may be falsely elevated by as much as 1.0 mmol/L. Suggest redraw and reanalysis. Chloride 100 97 - 110 mmol/L [facility] CO2 20(L) 22 - 32 mmol/L [facility] Anion gap 17(H) 2 - 15 mmol/L [facility] BUN 78(H) 6 - 25 mg/dL [facility] Creatinine 5.26(H) 0.80 - 1.30 mg/dL [facility] Glucose 128 70 - 199 mg/dL [facility] Comment: Interpretive Data Fasting glucose >/= [...] 2022. Calcium 8.4(L) 8.5 - 10.3 mg/dL [facility] Blood 10/25/2024 3:26 AM CDT 10/25/2024 3:37 AM CDT Carmen Walter MD LAB BLOOD ORDERABLES Fin al Result Performing Organization Address City/[facility]/ZIP Co de Phone Number [facility] [address] [facility] [place] [address] * Heparin anti factor Xa activity (10/24/2024 11:39 PM CDT) Anti Factor Xa 0.68 IUnits/mL Comment: Interpretive [...] 9 PM CDT 10/25/2024 12:06 AM CDT us Milana Maloney MD LAB BLOOD ORDERABLE S Final Result Performing Organization Address City/[facility]/ZIP Co de Phone Number [id number] [facility] [place] [address] * (ABNORMAL) Heparin anti factor Xa activity (10/24/2024 2:55 PM CDT) Anti Factor Xa >1.10(C) IUnits/mL Comment: Critical value. Results called to and read back by: Critical Result called to and read back by [id number], DATE: 2024-10-24 15:38:22 BY: [id number] Interpretive Data Enoxaparin therapeutic range (peak): VTE [...] MD LAB BLOOD ORDERABLE S Final Result [facility] [address] [facility] Department [place] [address] * Hepatitis B core antibody, total Blood (10/24/2024 2:55 PM CDT) Hep B core IgG/IgM Nonreactive Nonreactive Comment:Testing performed by : [facility], [address] [facility], [place]., [address] Blood 10/24/2024 2:55 PM CDT 10/24/2024 5:23 PM CDT Milana Maloney MD LAB MICROBIOLOGY - GENERAL ORDERABLES Final Result [address] [address] * Hepatitis B (HBV) DNA PCR, quantitative Blood (10/24/2024 2:55 PM CDT) [facility] HBV DNA Result Not Detected [facility] Comment: The quantifiable range of this assay is 10 IU/mL to 1,000,000,000 IU/mL (1.00 log IU/mL to 9.00 log IU/mL). Testing was performed by the [employer] [id number] HBV Test version 2.0 ([employer] Testing performed at [facility] Current Interpretive Data was last revised on 2021. Testing performed by: [facility], [address] [place]., [address] Blood 10/24/2024 2:55 PM CDT 10/24/2024 7:39 PM CDT Milana Maloney MD LAB MICROBIOLOGY - GENERAL ORDERABLES Final Result Performing Organization Address City/[facility]/ZIP Co de Phone Number [address] [place] [address] [facility] * Hepatitis B Surface Antigen Blood (10/24/2024 2:55 PM CDT) [facility] HepBsAg Nonreactive Nonreactive Blood 10/24/2024 2:55 PM CDT 10/24/2024 3:10 PM CDT Milana Maloney MD LAB MICROBIOLOGY - GENERAL ORDERABLES Final Result [address] [address] * ECG 12 lead (10/24/2024 8:10 AM CDT) [facility] Ventricular Rate EKG/Min 83 BPM [facility] QRS-Interval (MSEC) 152 ms [facility] QT-Interval (MSEC) 420 ms [facility] QTc 493 ms [facility] R [place] -86 degrees [facility] T [place] 85 degrees [facility] Diagnosis 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 ([id number]) on 10/24/2024 2:50:52 PM [facility] 10/24/2024 8:10 AM CDT 10/24/2024 2:50 PM CDT us August Roger MD ECG ORDERABLES Final R esult [facility] * (ABNORMAL) eGFR (10/24/2024 5:46 AM CDT) Pathologist [facility] eGFR 9(L) >=60 mL/min/1. 73 m2 Comment: [...] LAB BLOOD ORDERABLES Fin al Result [facility] [address] Department [place] [address] * Heparin anti factor Xa activity (10/24/2024 [...] 5:46 AM CDT 10/24/2024 6:08 AM CDT us Milana Maloney MD LAB BLOOD ORDERABLE S Final Result [facility] [address] Department [place] [address] * (ABNORMAL) CBC with auto differential (10/24/2024 5:46 AM CDT) WBC 40.6(H) 3.8 - 9.9 K/cumm Hgb 9.7(L) 13.0 - 17.5 g/dL [facility] Hct 31.2(L) 38.9 - 50.3 % [facility] Plt 453(H) 150 - 400 K/cumm [facility] MPV 9.6 9.1 - 12.3 fL [facility] RBC 3.33(L) 4.30 - 5.80 M/cumm [facility] MCV 93.7 81.3 - 96.4 fL [facility] MCH 29.1 27.1 - 33.3 pg [facility] MCHC 31.1(L) 32.3 - 35.7 g/dL [facility] RDW CV 15.5(H) 11.1 - 14.9 % [facility] RDW SD 52.6(H) 35.7 - 48.1 fL [facility] NRBC abs 0.04(H) 0.00 - 0.01 K/cumm [facility] Blood 10/24/2024 5:46 AM CDT 10/24/2024 6:08 AM CDT us Barbara Collins MD LAB BLO OD ORDERABLES Final Result [place] [id number] [facility] Department of Laboratories [place], [place] [id number] * (ABNORMAL) Manual Differential (10/24/2024 5:46 AM CDT) Differential Manual Cells Counted 100 [facility] Neutrophil abs 35.3(H) 1.5 - 6.5 K/cumm [facility] Imm gran abs 2.0(H) 0.0 - 0.1 K/cumm [facility] Lymphocyte abs 2.0 0.8 - 3.3 K/cumm [facility] Monocyte abs 1.2(H) 0.2 - 0.8 K/cumm [facility] Neutrophil pct 87.0 % [facility] Comment: Interpretive Data Percent cell count reference ranges are not reported, since discordance with absolute values may lead to misinterpretation of CBC data. Current Interpretive Data was last revised on 2017. Lymphocyte pct 5.0 % [facility] Comment: Interpretive Data Percent cell count reference ranges are not reported, since discordance with absolute values may lead to misinterpretation of CBC data. Current Interpretive Data was last revised on 2017. Monocyte pct 3.0 % [facility] Comment: Interpretive Data Percent cell count reference ranges are not reported, since discordance with absolute values may lead to misinterpretation of CBC data. Current Interpretive Data was last revised on 2017. Metamyelocyte pct 5.0(H) 0.0 - 0.0 % [facility] RBC morphology Present(A) [facility] Hypochromasia 3-7/HPF(A) [facility] Poikilocytosis Moderate(A) [facility] Macrocytes 3-7/HPF(A) [facility] Elliptocytes 8-15/HPF(A) [facility] Platelet estimate Automated Count Confirmed [facility] Blood 10/24/2024 5:46 AM CDT 10/24/2024 6:08 AM CDT us Matteo Julian MD LAB BLOOD ORDERABLES Cherise l Result [facility] [address] [facility] Department of Laboratories [place], [place] [id number] * (ABNORMAL) Basic metabolic panel (10/24/2024 5:46 AM CDT) Sodium 141 135 - 145 mmol/L Potassium, pl 4.9 3.3 - 4.9 mmol/L [facility] Chloride 99 97 - 110 mmol/L [facility] CO2 26 22 - 32 mmol/L [facility] Anion gap 16(H) 2 - 15 mmol/L [facility] BUN 102(H) 6 - 25 mg/dL [facility] Creatinine 6.14(H) 0.80 - 1.30 mg/dL [facility] Glucose 122 70 - 199 mg/dL [facility] Comment: Interpretive Data Fasting glucose >/= [...] 2022. Calcium 9.2 8.5 - 10.3 mg/dL [facility] Blood 10/24/2024 5:46 AM CDT 10/24/2024 6:08 AM CDT Carmen Walter MD LAB BLOOD ORDERABLES Fin al Result [facility] [address] [facility] Department [place] [address] * Heparin anti factor Xa [...] PM CDT 10/23/2024 5:15 PM CDT us Sheridan M. Badahman MD LAB BLOOD ORDERABLES Final R esult [address] [place] [address] * (ABNORMAL) BUN (10/23/2024 2:56 PM CDT) BUN 93(H) 6 - 25 mg/dL Blood 10/23/2024 2:56 PM CDT 10/23/2024 3:09 PM CDT Narrative [facility] - 10/23/2024 3:25 PM CDT Pre-Dialysis us Carmen Walter MD LAB BLOOD ORDERABLES Fin al Result Performing Organization Address City/[facility]/ZIP Co de Phone Number [place] [id number] [facility] [place] [address] * Blood culture Blood (10/23/2024 10:33 AM CDT) Report Final Report: No growth Comment:Testing performed by : [facility], [address] [facility], [place]., [address] Blood 10/23/2024 10:3 3 AM CDT 10/23/2024 4:02 PM CDT Narrative [facility] 10/28/2024 7:00 AM CDT From a different [...] performance characteristics have been verified by the [facility] Microbiology Laboratory. For questions about this culture, contact the Microbiology Laboratory at [phone]. Interpretive data was last revised on 24. Milana Maloney MD LAB MICROBIOLOGY - GENERAL ORDERABLES Final Result Performing Organization Address [facility] Co de Phone Number [facility] Department [place] [address] * Heparin anti factor Xa activity (10/23/2024 10:26 AM CDT) [facility] Anti Factor Xa 0.52 IUnits/mL Comment: Interpretive [...] 6 AM CDT 10/23/2024 10:39 AM CDT Chas Angulo MD LAB BLOOD ORDERABLES Final Result Performing Organization Address [facility]/ZIP Co de Phone Number [facility] [address] [facility] Department [place] [address] * Blood culture Blood (10/23/2024 10:26 AM CDT) Report Final Report: No growth Comment:Testing performed by : [facility], [address] [facility], [place]., [address] Blood 10/23/2024 10:2 6 AM CDT 10/23/2024 4:02 PM CDT Narrative [facility] - 10/28/2024 7:00 AM CDT 1. Blood [...] performance characteristics have been verified by the [facility] Microbiology Laboratory. For questions about this culture, contact the Microbiology Laboratory at [phone]. Interpretive data was last revised on 24. Milana Maloney MD LAB MICROBIOLOGY - GENERAL ORDERABLES Final Result Performing Organization Address City/[facility] Co de Phone Number [facility] [address] [facility] [place] [place] [address] * (ABNORMAL) eGFR (10/23/2024 4:53 AM CDT) [...] CDT Orlando Mclean NP LAB BLOOD ORDERABLES nal Result [facility] [address] [facility] Department [place] [address] * (ABNORMAL) Differential, auto (10/23/2024 4:53 AM CDT) Neutrophil abs 32.2(H) 1.5 - 6.5 K/cumm Imm gran abs 4.2(H) 0.0 - 0.1 K/cumm [facility] Lymphocyte abs 1.6 0.8 - 3.3 K/cumm [facility] Monocyte abs 1.0(H) 0.2 - 0.8 K/cumm [facility] Eosinophil abs 0.0 0.0 - 0.5 K/cumm [facility] Basophil abs 0.0 0.0 - 0.1 K/cumm [facility] Neutrophil pct 82.4 % [facility] Comment: Interpretive Data Percent cell count reference ranges are not reported, since discordance with absolute values may lead to misinterpretation of CBC data. Current Interpretive Data was last revised on 2017. Imm gran pct 10.8 % [facility] Comment: Interpretive Data Percent cell count reference ranges are not reported, since discordance with absolute values may lead to misinterpretation of CBC data. Current Interpretive Data was last revised on 2017. Lymphocyte pct 4.2 % [facility] Comment: Interpretive Data Percent cell count reference ranges are not reported, since discordance with absolute values may lead to misinterpretation of CBC data. Current Interpretive Data was last revised on 2017. Monocyte pct 2.6 % [facility] Comment: Interpretive Data Percent cell count reference ranges are not reported, since discordance with absolute values may lead to misinterpretation of CBC data. Current Interpretive Data was last revised on 2017. Eosinophil pct 0.0 % [facility] Comment: Interpretive Data Percent cell count reference ranges are not reported, since discordance with absolute values may lead to misinterpretation of CBC data. Current Interpretive Data was last revised on 2017. Basophil pct 0.0 % [facility] Comment: Interpretive Data Percent cell count reference ranges are not reported, since discordance with absolute values may lead to misinterpretation of CBC data. Current Interpretive Data was last revised on 2017. Blood 10/23/2024 4:53 AM CDT 10/23/2024 5:05 AM CDT us Matteo Julian MD LAB BLOOD ORDERABLES Cherise still Result [facility] [address] [facility] Department [place] [address] * Heparin anti factor Xa activity (10/23/2024 4:53 AM CDT) Anti Factor Xa 0.16 IUnits/mL Comment: Ref [...] MD LAB BLOOD ORDERABLES Fi nal Result [place] [id number] [facility] Department [place] [address] * (ABNORMAL) CBC with auto differential (10/23/2024 4:53 AM CDT) WBC 39.1(H) 3.8 - 9.9 K/cumm Hgb 9.5(L) 13.0 - 17.5 g/dL [facility] Hct 29.5(L) 38.9 - 50.3 % [facility] Plt 436(H) 150 - 400 K/cumm [facility] MPV 9.3 9.1 - 12.3 fL [facility] RBC 3.20(L) 4.30 - 5.80 M/cumm [facility] MCV 92.2 81.3 - 96.4 fL [facility] MCH 29.7 27.1 - 33.3 pg [facility] MCHC 32.2(L) 32.3 - 35.7 g/dL [facility] RDW CV 15.2(H) 11.1 - 14.9 % [facility] RDW SD 50.6(H) 35.7 - 48.1 fL [facility] NRBC abs 0.05(H) 0.00 - 0.01 K/cumm [facility] Blood 10/23/2024 4:53 AM CDT 10/23/2024 5:05 AM CDT Barbara Collins MD LAB BLO OD ORDERABLES Edited Result - Final Performing Organization Address [facility] de Phone Number [address] [place] [address] * Manual Differential (10/23/2024 4:53 AM CDT) Differential Auto RBC morphology Consistent with RBC Indicies [facility] Platelet estimate Automated Count Confirmed [facility] Blood 10/23/2024 4:53 AM CDT 10/23/2024 5:05 AM CDT Matteo Julian MD LAB BLOOD ORDERABLES Cherise l Result Performing Organization Address [facility] Co de Phone Number [address] [place] [address] * (ABNORMAL) Phosphorus (10/23/2024 4:53 AM CDT) Pathologist [facility] Phosphorus, pl 5.0(H) 2.3 - 4.5 mg/dL Blood 10/23/2024 4:53 AM CDT 10/23/2024 5:05 AM CDT Orlando Mclean NP LAB BLOOD ORDERABLES Fi nal Result Performing Organization Address [facility] Co de Phone Number [address] [place] [address] * Magnesium (10/23/2024 4:53 AM CDT) Pathologist [facility] Magnesium 1.9 1.4 - 2.5 mg/dL Blood 10/23/2024 4:53 AM CDT 10/23/2024 5:05 AM CDT Orlando Mclean NP LAB BLOOD ORDERABLES Fi nal Result Performing Organization Address [facility] Phone Number [facility] [address] [facility] Department [place] [address] * (ABNORMAL) Comprehensive metabolic panel (10/23/2024 4:53 AM CDT) Sodium 140 135 - 145 mmol/L Potassium, pl 4.5 3.3 - 4.9 mmol/L [facility] Chloride 100 97 - 110 mmol/L [facility] CO2 24 22 - 32 mmol/L [facility] Anion gap 16(H) 2 - 15 mmol/L [facility] BUN 80(H) 6 - 25 mg/dL [facility] Creatinine 5.27(H) 0.80 - 1.30 mg/dL [facility] Glucose 140 70 - 199 mg/dL [facility] Comment: Interpretive Data Fasting glucose >/= [...] 2022. Calcium 8.5 8.5 - 10.3 mg/dL [facility] Bilirubin, total 0.3 0.1 - 1.2 mg/dL [facility] Protein, pl 5.8(L) 6.5 - 8.5 g/dL [facility] Albumin 3.0(L) 3.5 - 5.0 g/dL [facility] Alk phos 78 40 - 130 Units/L [facility] ALT 57(H) 7 - 55 Units/L [facility] AST 33 10 - 50 Units/L [facility] Blood 10/23/2024 4:53 AM CDT 10/23/2024 5:05 AM CDT Orlando Mclean NP LAB BLOOD ORDERABLES Fi nal Result [facility] [address] [facility] Department [place] [address] * US Vein Mapping Duplex Upper Extremity Bilateral (10/22/2024 5:21 PM CDT) Anatomical Region Laterality Modality Vascular Bilateral Ultrasound 10/22/2024 4:17 PM CDT Narrative 10/25/2024 11:32 AM CDT Upper Extremity Vein Mapping Report Patient Name: LAMIN BETTS Account #: : [id number] ([id number]) Gender: M Study Date: 10/22/2024 04:17:45 PM Accession #: Adult Neuropsychologist: Yocasta Hebert Quality: Adequate Ref Provider: PROCEDURES: [...] Study Date: 10/22/2024 04:17:45 PM Accession #: Adult Neuropsychologist: Yocasta Hebert Quality: Adequate Ref Provider: PROCEDURES: [...] Lucius Jauregui MD 10/24/2024 7:41:03 AM CDT us Milana Maloney MD [facility] [place] PROCEDURES F inal Result * XR [...] Thomas Simons M.D. RW T: Report ID: [id number] Reading Location: [id number] Procedure Note Thomas Simons MD - 10/22/2024 [...] Thomas Simons M.D. RW T: Report ID: [id number] Reading Location: [id number] Orlando Mclean NP IMG XR PROCEDURES Final Result * Critical Care (10/22/2024 3:18 PM CDT) Narrative Ricardo Hu MD - 10/22/2024 3:18 PM CDT Ricardo Hu MD 10/23/2024 9:59 AM Critical Care Performed by: Orlando Mclean NP Authorized by: Orlando Mclean NP CRITICAL CARE: Team: [facility] Shift: AM Level of Billing: Critical [...] plan with the ICU team and other medical/it solutions sales consultant staff, making frequent assessments and decisions [...] spent time documenting in the medical record Orlando Mclean NP IN CLINIC/BEDSIDE ORDER SARAH Final Result * DE INSJ NON-TUNNELED CENTRAL VENOUS CATH AGE 5 YR/> (10/22/2024 3:15 PM CDT) Narrative Ricardo Hu MD - 10/22/2024 3:15 PM CDT Ricardo Hu MD 10/23/2024 9:59 AM Central Line Insertion Date/Time: 10/22/2024 3:15 PM Performed by: Orlando Mclean NP Authorized by: Ricardo Hu MD [place] Protocol: RN Notified of Procedure: yes Informed [...] Catheter type: Dialysis catheter Catheter size: 13 malian. Needle inserted, vein idenitified then guidewire inserted [...] and matched to patient identification: n/a Responsible libertarian for transporting specimen(s) to lab determined: n/a [...] by Orlando Doherty M.D. T: Report ID: [id number] Reading Location: [id number] Procedure Note Orlando Doherty, DO - 10/22/2024 [...] by Orlando Doherty M.D. T: Report ID: [id number] Reading Location: [id number] us Milana Maloney MD IMG XR PROCEDURES F inal Result * (ABNORMAL) BUN (10/22/2024 11:48 AM CDT) BUN 100(H) 6 - 25 mg/dL Blood 10/22/2024 11:4 8 AM CDT 10/22/2024 12:38 PM CDT Narrative YUNIORNER - 10/22/2024 1:07 PM CDT Pre-Dialysis Uday Jones MD LAB BLOOD ORDERABLES Final Result Performing Organization Address [facility] de Phone Number [facility] [address] [place] [address] * (ABNORMAL) eGFR (10/22/2024 6:32 AM CDT) [...] Jones MD LAB BLOOD ORDERABLES Final Result Performing Organization Address [facility] Co de Phone Number PAVEL [address] [facility] [place] [address] * Heparin anti factor Xa activity (10/22/2024 6:32 AM CDT) Pathologist [facility] Anti Factor Xa <0.10 IUnits/mL Comment: Patient not on heparin at time of collection per [id number] (RN). 10/22/24 at 0845 by [id number]. Interpretive Data Enoxaparin therapeutic range (peak): VTE [...] MD LAB BLOOD ORDERABLES Cherise l Result [facility] [address] [facility] Department [place] [address] * (ABNORMAL) CBC with auto differential (10/22/2024 6:32 AM CDT) Pathologist [facility] WBC 36.2(H) 3.8 - 9.9 K/cumm Hgb 10.5(L) 13.0 - 17.5 g/dL [facility] Hct 34.0(L) 38.9 - 50.3 % [facility] Plt 514(H) 150 - 400 K/cumm [facility] MPV 9.4 9.1 - 12.3 fL [facility] RBC 3.63(L) 4.30 - 5.80 M/cumm [facility] MCV 93.7 81.3 - 96.4 fL [facility] MCH 28.9 27.1 - 33.3 pg [facility] MCHC 30.9(L) 32.3 - 35.7 g/dL [facility] RDW CV 15.3(H) 11.1 - 14.9 % [facility] RDW SD 52.9(H) 35.7 - 48.1 fL [facility] NRBC abs 0.16(H) 0.00 - 0.01 K/cumm [facility] Blood 10/22/2024 6:32 AM CDT 10/22/2024 7:06 AM CDT Barbara Collins MD LAB BLO OD ORDERABLES Edited Result - Final [facility] [address] [facility] Department [place] [address] * (ABNORMAL) Manual Differential (10/22/2024 6:32 AM CDT) Differential Manual Cells Counted 100 [facility] Neutrophil abs 29.7(H) 1.5 - 6.5 K/cumm [facility] Imm gran abs 4.0(H) 0.0 - 0.1 K/cumm [facility] Lymphocyte abs 2.5 0.8 - 3.3 K/cumm [facility] Monocyte abs 0.0(L) 0.2 - 0.8 K/cumm [facility] Neutrophil pct 82.0 % [facility] Comment: Interpretive Data Percent cell count reference ranges are not reported, since discordance with absolute values may lead to misinterpretation of CBC data. Current Interpretive Data was last revised on 2017. Lymphocyte pct 4.0 % [facility] Comment: Interpretive Data Percent cell count reference ranges are not reported, since discordance with absolute values may lead to misinterpretation of CBC data. Current Interpretive Data was last revised on 2017. Metamyelocyte pct 11.0(H) 0.0 - 0.0 % [facility] Variant lymph pct 3.0(H) 0.0 - 0.0 % [facility] RBC morphology Present(A) [facility] Hypochromasia 8-15/HPF(A) [facility] Anisocytosis Slight(A) [facility] Microcytes 8-15/HPF(A) [facility] Elliptocytes 3-7/HPF(A) [facility] Platelet estimate Automated Count Confirmed [facility] Blood 10/22/2024 6:32 AM CDT 10/22/2024 7:06 AM CDT us Matteo Julian MD LAB BLOOD ORDERABLES Cherise l Result [place] [id number] [facility] [employer] [address] * (ABNORMAL) Basic metabolic panel (10/22/2024 6:32 AM CDT) Sodium 141 135 - 145 mmol/L Potassium, pl 4.4 3.3 - 4.9 mmol/L [facility] Chloride 98 97 - 110 mmol/L [facility] CO2 25 22 - 32 mmol/L [facility] Anion gap 18(H) 2 - 15 mmol/L [facility] BUN 110(H) 6 - 25 mg/dL [facility] Creatinine 6.30(H) 0.80 - 1.30 mg/dL [facility] Glucose 164 70 - 199 mg/dL [facility] Comment: Interpretive Data Fasting glucose >/= [...] 2022. Calcium 9.3 8.5 - 10.3 mg/dL [facility] Blood 10/22/2024 6:32 AM CDT 10/22/2024 7:06 AM CDT us Uday Jones MD LAB BLOOD ORDERABLES Final Result [address] [facility] [place] [address] * ECG 12 lead (10/22/2024 12:45 AM CDT) Ventricular Rate EKG/Min 76 BPM [facility] QRS-Interval (MSEC) 158 ms [facility] QT-Interval (MSEC) 450 ms [facility] QTc 506 ms [facility] R [place] -80 degrees [facility] T [place] 86 degrees [facility] Diagnosis Atrial fibrillation Right bundle branch block Left anterior fascicular block Bifascicular block Abnormal ECG When compared with ECG of 19-OCT-2024 12:28, Vent. rate has decreased BY 46 BPM Right bundle branch block has replaced Non-specific intra-ventricul ar conduction block Confirmed by ASHLEY WYNNE M.D. ([id number]) on 10/23/2024 9:23:45 AM [facility] 10/22/2024 12:4 5 AM CDT 10/23/2024 9:23 AM CDT [facility] [email or web address] Claire Hugo G[employer]ER ECG ORDERABLES Final Re sult [facility] * (ABNORMAL) Lipid panel (10/21/2024 6:34 PM CDT) Pathologist [facility] Cholesterol 124 30 - 199 mg/dL Comment: [...] on 2018. Triglycerides 229(H) <=149 mg/dL [facility] Comment: Interpretive Data Ages [...] 2018. LDL, calculated 58 <=129 mg/dL [facility] Comment: Interpretive Data Ages < [...] NCEP Expert Panel. Circulation 2004;110:227 3. Zia Walker al. [place] Cardiol. 2020 December 01;5(5):540-548. doi: 10.1001/jamacardio.2020.0013 Current Interpretive Data was last revised on 2024. Non-HDL Cholesterol 95 mg/dL [facility] Comment: Interpretive Data Ages < [...] revised on 2018. Chol/HDL ratio 4 [facility] Blood 10/21/2024 6:34 PM CDT 10/21/2024 6:54 PM CDT us Milana Maloney MD LAB BLOOD ORDERABLE S Final Result [facility] [address] [facility] Department [place] [address] * INSERT TUNNELED CV CATH W/PORT OR PUMP >[id number] (10/21/2024 10:01 AM CDT) Anatomical Region Laterality Modality X-Ray Angiograph y Narrative 10/21/2024 10:08 AM CDT Please see OpNote for result. Valentine De La Rosa NP CV CARDIAC [...] LAB BLOOD ORDERABLES Cherise l Result [facility] [address] [facility] Department [place] [address] * Heparin anti factor Xa activity (10/21/2024 [...] ORDERABLES Cherise l Result Performing Organization Address [facility] Co de Phone Number [place] [phone] [facility] [place] [address] * (ABNORMAL) CBC with auto differential (10/21/2024 6:44 AM CDT) [facility] WBC 32.5(H) 3.8 - 9.9 K/cumm Hgb 9.6(L) 13.0 - 17.5 g/dL [facility] Hct 29.3(L) 38.9 - 50.3 % [facility] Plt 461(H) 150 - 400 K/cumm [facility] MPV 9.3 9.1 - 12.3 fL [facility] RBC 3.28(L) 4.30 - 5.80 M/cumm [facility] MCV 89.3 81.3 - 96.4 fL [facility] MCH 29.3 27.1 - 33.3 pg [facility] MCHC 32.8 32.3 - 35.7 g/dL [facility] RDW CV 15.0(H) 11.1 - 14.9 % [facility] RDW SD 49.5(H) 35.7 - 48.1 fL [facility] NRBC abs 0.10(H) 0.00 - 0.01 K/cumm [facility] [facility] Blood 10/21/2024 6:44 AM CDT 10/21/2024 7:06 AM CDT Barbara Collins MD LAB BLO OD ORDERABLES Edited Result - Final Performing Organization Address City/[facility]/ZIP Co de Phone Number [address] of Laboratories [place], [place] [id number] * (ABNORMAL) Manual Differential (10/21/2024 6:44 AM CDT) Pathologist [facility] Differential Manual Cells Counted 100 [facility] Neutrophil abs 26.3(H) 1.5 - 6.5 K/cumm [facility] Imm gran abs 1.6(H) 0.0 - 0.1 K/cumm [facility] Lymphocyte abs 3.2 0.8 - 3.3 K/cumm [facility] Monocyte abs 1.3(H) 0.2 - 0.8 K/cumm [facility] Neutrophil pct 81.0 % [facility] Comment: Interpretive Data Percent cell count reference ranges are not reported, since discordance with absolute values may lead to misinterpretation of CBC data. Current Interpretive Data was last revised on 2017. Lymphocyte pct 10.0 % [facility] Comment: Interpretive Data Percent cell count reference ranges are not reported, since discordance with absolute values may lead to misinterpretation of CBC data. Current Interpretive Data was last revised on 2017. Monocyte pct 4.0 % [facility] Comment: Interpretive Data Percent cell count reference ranges are not reported, since discordance with absolute values may lead to misinterpretation of CBC data. Current Interpretive Data was last revised on 2017. Metamyelocyte pct 2.0(H) 0.0 - 0.0 % [facility] Myelocyte pct 3.0(H) 0.0 - 0.0 % [facility] RBC morphology Consistent with RBC Indicies [facility] Platelet estimate Automated Count Confirmed [facility] Blood 10/21/2024 6:44 AM CDT 10/21/2024 7:06 AM CDT us Matteo Julian MD LAB BLOOD ORDERABLES Cherise l Result [facility] [address] [facility] Department [place] [address] * (ABNORMAL) Comprehensive metabolic panel (10/21/2024 6:44 AM CDT) Pathologist [facility] Sodium 143 135 - 145 mmol/L Potassium, pl 4.4 3.3 - 4.9 mmol/L [facility] Chloride 100 97 - 110 mmol/L [facility] CO2 23 22 - 32 mmol/L [facility] Anion gap 20(H) 2 - 15 mmol/L [facility] BUN 122(H) 6 - 25 mg/dL [facility] Creatinine 6.64(H) 0.80 - 1.30 mg/dL [facility] Glucose 102 70 - 199 mg/dL [facility] Comment: Interpretive Data Fasting glucose >/= [...] 2022. Calcium 9.4 8.5 - 10.3 mg/dL [facility] Bilirubin, total 0.2 0.1 - 1.2 mg/dL [facility] Protein, pl 6.2(L) 6.5 - 8.5 g/dL [facility] Albumin 3.3(L) 3.5 - 5.0 g/dL [facility] Alk phos 103 40 - 130 Units/L [facility] ALT 143(H) 7 - 55 Units/L [facility] AST 112(H) 10 - 50 Units/L [facility] Blood 10/21/2024 6:44 AM CDT 10/21/2024 7:11 AM CDT us Matteo Julian MD LAB BLOOD ORDERABLES Cherise still Result [facility] [address] [facility] Department of Laboratories [place], [place] [id number] * (ABNORMAL) eGFR (10/20/2024 2:38 PM CDT) Pathologist [facility] eGFR 8(L) >=60 mL/min/1. 73 m2 Comment: [...] was last reviewed 2021. Testing performed by: [address] [address] Blood 10/20/2024 2:38 PM CDT 10/20/2024 2:57 PM CDT Auguts Roger MD LAB BLOOD ORDERABLES Fi nal Result Performing Organization Address [facility] de Phone Number PAVEL ROSADO [address] [facility] Department of Laboratories [place], [place] [id number] * (ABNORMAL) Protime-INR (10/20/2024 2:38 PM CDT) PT 16.1(H) 12.0 - 14.6 sec Comment: Ref Range High Testing performed by: [address] [address] INR 1.3(H) 0.9 - 1.2 [facility]EL [facility] Comment: Ref Range High Interpretive data Oral anticoagulant therapeutic ranges: Venous thromboembolism prophylaxis or treatment: 2.0-3.0 CARDIOLOGY Standard range: 2.0-3.0 High-intensity range: 2.5-3.5 Refer to indication-specific guidelines for appropriate target ranges for prosthetic heart valve replacement. Current interpretive data was last revised on 2019. Testing performed by: [address] [address] Blood 10/20/2024 2:38 PM CDT 10/20/2024 2:57 PM CDT Narrative PAVEL ROS[facility] - 10/20/2024 3:12 PM CDT Baseline prior to apixaban initiation. August Roger MD LAB BLOOD ORDERABLES Fi nal Result Performing Organization Address [facility] de Phone Number [facility] [address] [facility] [place] [address] * (ABNORMAL) Creatinine (10/20/2024 2:38 PM CDT) Creatinine 6.56(H) 0.80 - 1.30 mg/dL Comment:Testing performed by : [address] [address] Blood 10/20/2024 2:38 PM CDT 10/20/2024 2:57 PM CDT Narrative PAVEL - 10/20/2024 3:26 PM CDT Baseline prior to apixaban initiation. August Roger MD LAB BLOOD ORDERABLES nal Result Performing Organization Address [facility] de Phone Number [id number] [place] [address] * (ABNORMAL) Hepatic function panel (10/20/2024 2:38 PM CDT) Pathologist [facility] Bilirubin, total 0.2 0.1 - 1.2 mg/dL Comment:Testing performed by : [address] [address] Bilirubin, direct <0.2 0.1 - 0.3 mg/dL PAVEL Comment:Testing performed by : [address] [address] Protein, pl 7.0 6.5 - 8.5 g/dL [facility]EL Comment:Testing performed by : [address] [address] Albumin 3.5 3.5 - 5.0 g/dL [facility]EL Comment:Testing performed by : [address] [address] Alk phos 116 40 - 130 Units/L [facility] Comment:Testing performed by : [address] [address] ALT 119(H) 7 - 55 Units/L [facility] Comment:Testing performed by : [address] [place] [address] AST 95(H) 10 - 50 Units/L [facility] Comment:Testing performed by : [facility], [address] [place] [address]., [address] Blood 10/20/2024 2:38 PM CDT 10/20/2024 2:57 PM CDT Narrative PAVEL - 10/20/2024 3:26 PM CDT Baseline prior to apixaban initiation. August Roger MD LAB BLOOD ORDERABLES Fi nal Result PAVEL [address] [facility] Department [place] [address] * Hepatitis panel, acute Blood (10/20/2024 12:31 PM CDT) Hep A IgM Nonreactive Nonreactive Comment: Interpretive Data: If Hep A IgM Ab is reported as Equivocal, a new sample should be drawn in two weeks for testing. Current interpretive data was last revised on 19. Hep B core IgM Nonreactive Nonreactive P[facility]EL Comment: Interpretive Data If HepB Core IgM Ab is reported as Equivocal, a new sample should be drawn in two weeks for testing. Current interpretive data was last revised on 19. Hep C Ab Nonreactive Nonreactive [facility] Comment: Antibodies to HCV not detected. Does [...] last revised on 2019. HepBsAg Nonreactive Nonreactive [facility] Blood 10/20/2024 12:3 1 PM CDT 10/20/2024 2:31 PM CDT Carmen Walter MD LAB MICROBIOLOGY - GENER AL ORDERABLES Final Result [facility] [place] [address] * Hepatitis B surface antibody (immune status) Blood (10/20/2024 12:31 PM CDT) HBsAb (immune status) Nonreactive Comment: Interpretive Data [...] MICROBIOLOGY - GENER AL ORDERABLES Final Result [facility] [place] [address] * Heparin anti factor Xa activity (10/20/2024 9:04 AM CDT) Pathologist [facility] Anti Factor Xa 0.54 IUnits/mL Comment: Interpretive [...] last revised on 2019. Testing performed by: [facility], [address] [place] [address]., [address] Blood 10/20/2024 9:04 AM CDT 10/20/2024 9:08 AM CDT us Matteo Julian MD LAB BLOOD ORDERABLES Cherise still Result PAVEL [address] [facility] Department [place] [address] * CT Chest WO Contrast (10/20/2024 6:34 [...] Winston Kinney M.D. RB: SABINO Report ID: [id number] Reading Location: [place] [address] Procedure Note Winston Kinney MD - 10/20/2024 [...] Winston Kinney M.D. RB: SABINO Report ID: [id number] Reading Location: [place] [address] Rigoberto Croft MD IM CT PROCEDURES Cherise l Result * (ABNORMAL) [...] was last reviewed 2021. Testing performed by: [address] [address] Blood 10/20/2024 3:52 AM CDT 10/20/2024 4:31 AM CDT us Matteo Julian MD LAB BLOOD ORDERABLES Cherise still Result P[facility]EL [address] [facility] Department [place] [address] * (ABNORMAL) Differential, auto (10/20/2024 3:52 AM CDT) Neutrophil abs 21.5(H) 1.5 - 6.5 K/cumm Comment:Testing performed by : [address] [address] Imm gran abs 2.0(H) 0.0 - 0.1 K/cumm [facility]EL Comment:Testing performed by : [address] [address] Lymphocyte abs 1.3 0.8 - 3.3 K/cumm [facility] Comment:Testing performed by : [address] [address] Monocyte abs 0.8 0.2 - 0.8 K/cumm [facility] Comment:Testing performed by : [address] [address] Eosinophil abs 0.1 0.0 - 0.5 K/cumm [facility] Comment:Testing performed by : [address] [address] Basophil abs 0.2(H) 0.0 - 0.1 K/cumm [facility] Comment:Testing performed by : [address] [address] Neutrophil pct 83.3 % [facility] Comment: Interpretive Data Percent cell count reference ranges are not reported, since discordance with absolute values may lead to misinterpretation of CBC data. Current Interpretive Data was last revised on 2017. Testing performed by: [address] [address] Imm gran pct 7.7 % [facility] Comment: Interpretive Data Percent cell count reference ranges are not reported, since discordance with absolute values may lead to misinterpretation of CBC data. Current Interpretive Data was last revised on 2017. Testing performed by: [address] [address] Lymphocyte pct 5.1 % [facility] Comment: Interpretive Data Percent cell count reference ranges are not reported, since discordance with absolute values may lead to misinterpretation of CBC data. Current Interpretive Data was last revised on 2017. Testing performed by: [address] [address] Monocyte pct 3.0 % [facility] Comment: Interpretive Data Percent cell count reference ranges are not reported, since discordance with absolute values may lead to misinterpretation of CBC data. Current Interpretive Data was last revised on 2017. Testing performed by: [address] [address] Eosinophil pct 0.2 % [facility] Comment: Interpretive Data Percent cell count reference ranges are not reported, since discordance with absolute values may lead to misinterpretation of CBC data. Current Interpretive Data was last revised on 2017. Testing performed by: [address] [address] Basophil pct 0.7 % [facility] Comment: Interpretive Data Percent cell count reference ranges are not reported, since discordance with absolute values may lead to misinterpretation of CBC data. Current Interpretive Data was last revised on 2017. Testing performed by: [address] [address] Blood 10/20/2024 3:52 AM CDT 10/20/2024 4:33 AM CDT us Honorio Mosqueda NP LAB BLOOD ORDERABLES Final Result Performing Organization Address [facility]/ZIP Co de Phone Number [facility] [place] [address] * Heparin anti factor Xa activity (10/20/2024 3:52 AM CDT) [facility] Anti Factor Xa 0.42 IUnits/mL Comment: [...] last revised on 2019. Testing performed by: [facility], [address] [place] [address]., [address] Blood 10/20/2024 3:52 AM CDT 10/20/2024 4:34 AM CDT us Matteo Julian MD LAB BLOOD ORDERABLES Cherise l Result Performing Organization Address City/[facility]/ZIP Co de Phone Number [place] [id number] [facility] [place] [address] * (ABNORMAL) CBC with auto differential (10/20/2024 3:52 AM CDT) WBC 25.8(H) 3.8 - 9.9 K/cumm Comment:Testing performed by : [address], [address] Hgb 9.4(L) 13.0 - 17.5 g/dL P[facility]EL Comment:Testing performed by : [address] [address] Hct 29.0(L) 38.9 - 50.3 % [facility]EL Comment:Testing performed by : [address], [address] Plt 429(H) 150 - 400 K/cumm [facility] Comment:Testing performed by : [address], [address] MPV 9.4 9.1 - 12.3 fL [facility] Comment:Testing performed by : [address], [address] RBC 3.15(L) 4.30 - 5.80 M/cumm [facility] Comment:Testing performed by : [address], [address] MCV 92.1 81.3 - 96.4 fL [facility] Comment:Testing performed by : [address], [address] MCH 29.8 27.1 - 33.3 pg CERALDO Comment:Testing performed by : [address], [address] MCHC 32.4 32.3 - 35.7 g/dL PAVEL Comment:Testing performed by : [address], [address] RDW CV 15.2(H) 11.1 - 14.9 % [facility] Comment:Testing performed by : [address], [address] RDW SD 50.7(H) 35.7 - 48.1 fL [facility] Comment:Testing performed by : [address], [address] NRBC abs 0.04(H) 0.00 - 0.01 K/cumm [facility] Comment:Testing performed by : [address] [address] Blood 10/20/2024 3:52 AM CDT 10/20/2024 4:33 AM CDT Barbara Collins MD LAB BLO OD ORDERABLES Final Result Performing Organization Address [facility] de Phone Number [address] [place] [address] * (ABNORMAL) CRP (acute phase) (10/20/2024 3:52 AM CDT) Pathologist [facility] CRP 225.0(H) <=10.0 mg/L Comment:Testing performed by : [address] [address] Blood 10/20/2024 3:52 AM CDT 10/20/2024 4:31 AM CDT Rigoberto Croft MD LAB BLOOD ORDERABLES F inal Result Performing Organization Address [facility] de Phone Number [address] [address] * (ABNORMAL) Comprehensive metabolic panel (10/20/2024 3:52 AM CDT) Pathologist [facility] Sodium 139 135 - 145 mmol/L Comment:Testing performed by : [address] [address] Potassium, pl 4.0 3.3 - 4.9 mmol/L [facility]EL Comment:Testing performed by : [address] [address] Chloride 98 97 - 110 mmol/L [facility] Comment:Testing performed by : [address] [address] CO2 22 22 - 32 mmol/L [facility] Comment:Testing performed by : [address] [address] Anion gap 19(H) 2 - 15 mmol/L [facility] Comment:Testing performed by : [address] [address] BUN 105(H) 6 - 25 mg/dL [facility] Comment:Testing performed by : [address] [address] Creatinine 6.35(H) 0.80 - 1.30 mg/dL [facility] Comment:Testing performed by : [address] [address] Glucose 172 70 - 199 mg/dL [facility] Comment: Interpretive Data Fasting glucose >/= [...] was last revised 2022. Testing performed by: [address] [address] Calcium 10.1 8.5 - 10.3 mg/dL [facility] Comment:Testing performed by : [address] [address] Bilirubin, total 0.2 0.1 - 1.2 mg/dL [facility] Comment:Testing performed by : [address] [address] Protein, pl 6.6 6.5 - 8.5 g/dL [facility] Comment:Testing performed by : [address] [address] Albumin 3.2(L) 3.5 - 5.0 g/dL [facility]EL Comment:Testing performed by : [address] [address] Alk phos 132(H) 40 - 130 Units/L [facility] Comment:Testing performed by : [address] [address] ALT 91(H) 7 - 55 Units/L [facility]EL ROSADO Comment:Testing performed by : [facility], [address] [place] [address]., [address] AST 105(H) 10 - 50 Units/L [facility]EL ROSADO Comment:Testing performed by : [facility], [address] [place] [address]., [address] Blood 10/20/2024 3:52 AM CDT 10/20/2024 4:31 AM CDT us Matteo Julian MD LAB BLOOD ORDERABLES Cherise l Result PAVEL [address] [facility] Department [place] [address] * Heparin anti factor Xa [...] last revised on 2019. Testing performed by: [address] [address] Blood 10/19/2024 7:33 PM CDT 10/19/2024 7:50 PM CDT Matteo Julian MD LAB BLOOD ORDERABLES Cherise l Result [facility]3 [facility] [place] [address] * Heparin anti factor Xa activity (10/19/2024 12:50 PM CDT) Anti Factor Xa <0.10 IUnits/mL [...] last revised on 2019. Testing performed by: [facility], [address] [place] [address]., [address] Blood 10/19/2024 12:5 0 PM CDT 10/19/2024 1:08 PM CDT Narrative [facility] - 10/19/2024 1:55 PM CDT Baseline prior to heparin initiation Matteo Julian MD LAB BLOOD ORDERABLES Cherise l Result P[facility]EL [address] [facility] [employer] [place], [place] [id number] * (ABNORMAL) Protime-INR (10/19/2024 12:50 PM CDT) Pathologist [facility] PT 15.6(H) 12.0 - 14.6 sec Comment: Ref Range High Testing performed by: [address] [address] INR 1.3(H) 0.9 - 1.2 YUNIORALDO Comment: Ref Range High Interpretive data Oral anticoagulant therapeutic ranges: Venous thromboembolism prophylaxis or treatment: 2.0-3.0 CARDIOLOGY Standard range: 2.0-3.0 High-intensity range: 2.5-3.5 Refer to indication-specific guidelines for appropriate target ranges for prosthetic heart valve replacement. Current interpretive data was last revised on 2019. Testing performed by: [address] [address] Blood 10/19/2024 12:5 0 PM CDT 10/19/2024 1:07 PM CDT Narrative PAVEL - 10/19/2024 1:27 PM CDT Baseline prior to heparin initiation Matteo Julian MD LAB BLOOD ORDERABLES Cherise l Result [facility] [address] [facility] Department [place] [address] * ECG 12 lead (10/19/2024 12:28 PM CDT) Pathologist [facility] Ventricular Rate EKG/Min 122 BPM [facility] Atrial Rate 133 BPM [facility] QRS-Interval (MSEC) 156 ms [facility] QT-Interval (MSEC) 372 ms [facility] QTc 530 ms [facility] R [place] 270 degrees [facility] T [place] 75 degrees [facility] Diagnosis Atrial fibrillation with rapid ventricular response Left axis deviation Non-specific intra-ventricul ar conduction block Abnormal ECG Confirmed by LANDEN SEARS M.D. ([id number]) on 10/19/2024 4:58:38 PM [facility] 10/19/2024 12:2 8 PM CDT 10/19/2024 4:58 PM CDT us Matteo Julian MD ECG ORDERABLES Final Res ult [facility] * XR Chest 1 View [...] Electronically signed by Jonathan Oneill M.D. KR: KR Report ID: [id number] Reading Location: [place] [address] Procedure Note Jonathan Oneill MD - 10/19/2024 [...] Jonathan Oneill M.D. KR: KEL Report ID: [id number] Reading Location: [id number] us Rigoberto Croft MD IMG XR PROCEDURES Cherise [...] was last reviewed 2021. Testing performed by: [facility], [address] [place] [address]., [address] Blood 10/19/2024 4:05 AM CDT 10/19/2024 4:39 AM CDT us Matteo Julian MD LAB BLOOD ORDERABLES Cherise l Result P[facility]EL [address] [facility] Department [place] [address] * (ABNORMAL) Differential, auto (10/19/2024 4:05 AM CDT) Neutrophil abs 18.8(H) 1.5 - 6.5 K/cumm Comment:Testing performed by : [facility], [address] [place] [address], [place]., [address] Imm gran abs 1.0(H) 0.0 - 0.1 K/cumm [facility] Comment:Testing performed by : [address], [place]., [address] Lymphocyte abs 0.9 0.8 - 3.3 K/cumm [facility] Comment:Testing performed by : [address], [place]., [address] Monocyte abs 0.8 0.2 - 0.8 K/cumm [facility] Comment:Testing performed by : [address], [place]., [address] Eosinophil abs 0.0 0.0 - 0.5 K/cumm [facility] Comment:Testing performed by : [address], [place]., [address] Basophil abs 0.1 0.0 - 0.1 K/cumm [facility] Comment:Testing performed by : [address] [address] Neutrophil pct 87.5 % [facility] Comment: Interpretive Data Percent cell count reference ranges are not reported, since discordance with absolute values may lead to misinterpretation of CBC data. Current Interpretive Data was last revised on 2017. Testing performed by: [address] [address] Imm gran pct 4.5 % [facility] Comment: Interpretive Data Percent cell count reference ranges are not reported, since discordance with absolute values may lead to misinterpretation of CBC data. Current Interpretive Data was last revised on 2017. Testing performed by: [address] [address] Lymphocyte pct 4.0 % C[facility] Comment: Interpretive Data Percent cell count reference ranges are not reported, since discordance with absolute values may lead to misinterpretation of CBC data. Current Interpretive Data was last revised on 2017. Testing performed by: [address], [place]., [address] Monocyte pct 3.6 % [facility] Comment: Interpretive Data Percent cell count reference ranges are not reported, since discordance with absolute values may lead to misinterpretation of CBC data. Current Interpretive Data was last revised on 2017. Testing performed by: [address] [address] Eosinophil pct 0.1 % [facility] Comment: Interpretive Data Percent cell count reference ranges are not reported, since discordance with absolute values may lead to misinterpretation of CBC data. Current Interpretive Data was last revised on 2017. Testing performed by: [address] [address] Basophil pct 0.3 % [facility] Comment: Interpretive Data Percent cell count reference ranges are not reported, since discordance with absolute values may lead to misinterpretation of CBC data. Current Interpretive Data was last revised on 2017. Testing performed by: [address] [address] Blood 10/19/2024 4:05 AM CDT 10/19/2024 4:41 AM CDT us Honorio Mosqueda NP LAB BLOOD ORDERABLES Final Result [address] [place] [address] * (ABNORMAL) Thyroid Function Jerauld (10/19/2024 4:05 AM CDT) TSH 0.12(L) 0.30 - 4.20 mcIUnit/mL Comment:Testing performed by : [address] [address] Blood 10/19/2024 4:05 AM CDT 10/19/2024 4:39 AM CDT us Matteo Julian MD LAB BLOOD ORDERABLES Cherise l Result [address] [place] [address] * (ABNORMAL) CBC with auto differential (10/19/2024 4:05 AM CDT) [facility] Signature WBC 21.5(H) 3.8 - 9.9 K/cumm Comment:Testing performed by : [address] [address] Hgb 9.7(L) 13.0 - 17.5 g/dL PAVEL Comment:Testing performed by : [address], [address] Hct 29.8(L) 38.9 - 50.3 % PAVEL Comment:Testing performed by : [address], [address] Plt 419(H) 150 - 400 K/cumm PAVEL Comment:Testing performed by : [address], [address] MPV 9.6 9.1 - 12.3 fL PAVEL Comment:Testing performed by : [address], [address] RBC 3.25(L) 4.30 - 5.80 M/cumm PAVEL Comment:Testing performed by : [address], [address] MCV 91.7 81.3 - 96.4 fL PAVEL Comment:Testing performed by : [address], [address] MCH 29.8 27.1 - 33.3 pg PAVEL Comment:Testing performed by : [address], [address] MCHC 32.6 32.3 - 35.7 g/dL P[facility]EL Comment:Testing performed by : [address], [address] RDW CV 15.2(H) 11.1 - 14.9 % PAVEL Comment:Testing performed by : [address], [address] RDW SD 51.7(H) 35.7 - 48.1 fL [facility]AVEL Comment:Testing performed by : [address] [address], [address] NRBC abs 0.00 0.00 - 0.01 K/cumm [facility] Comment:Testing performed by : [facility], [address] [place] [address]., [address] Blood 10/19/2024 4:05 AM CDT 10/19/2024 4:41 AM CDT Barbara Collins MD LAB BLO OD ORDERABLES Final Result Performing Organization Address [facility] Co de Phone Number [address] [place] [address] * (ABNORMAL) CRP (acute phase) (10/19/2024 4:05 AM CDT) CRP 476.0(H) <=10.0 mg/L Comment:Testing performed by : [facility], [address] [place] [address]., [address] Blood 10/19/2024 4:05 AM CDT 10/19/2024 4:39 AM CDT Rigoberto Croft MD LAB BLOOD ORDERABLES F inal Result Performing Organization Address [facility] Co de Phone Number [address] [place] [address] * (ABNORMAL) T3, free (10/19/2024 4:05 AM CDT) Free T3 1.5(L) 2.0 - 4.4 pg/mL Blood 10/19/2024 4:05 AM CDT 10/19/2024 4:42 PM CDT Narrative [facility] - 10/19/2024 5:11 PM CDT This test was reflexed from a T4 result. us Matteo Julian MD LAB BLOOD ORDERABLES Cherise l Result Performing Organization Address City/[facility]/ZIP Co de Phone Number [address] [place] [address] * T4, free (10/19/2024 4:05 AM CDT) Pathologist [facility] Free T4 1.40 0.90 - 1.70 ng/dL Comment:Testing performed by : [address] [address] Blood 10/19/2024 4:05 AM CDT 10/19/2024 4:39 AM CDT Narrative PAVEL - 10/19/2024 2:34 PM CDT This test was reflexed from a TSH result. us Matteo Julian MD LAB BLOOD ORDERABLES Cherise still Result [facility]EL [address] [facility] Department [place] [address] * (ABNORMAL) Comprehensive metabolic panel (10/19/2024 4:05 AM CDT) [facility] Sodium 139 135 - 145 mmol/L Comment:Testing performed by : [address] [address] Potassium, pl 4.5 3.3 - 4.9 mmol/L [facility]EL Comment: Hemolyzed; Potassium value may be falsely elevated by as much as 1.0 mmol/L. Suggest redraw and reanalysis. Testing performed by: [address] [address] Chloride 100 97 - 110 mmol/L [facility] Comment:Testing performed by : [address] [address] CO2 22 22 - 32 mmol/L [facility] Comment:Testing performed by : [address] [address] Anion gap 17(H) 2 - 15 mmol/L [facility] Comment:Testing performed by : [address] [address] BUN 89(H) 6 - 25 mg/dL [facility] Comment:Testing performed by : [address] [address] Creatinine 5.77(H) 0.80 - 1.30 mg/dL [facility] Comment:Testing performed by : [address] [address] Glucose 196 70 - 199 mg/dL [facility] Comment: Interpretive [...] was last revised 2022. Testing performed by: [address] [address] Calcium 10.4(H) 8.5 - 10.3 mg/dL [facility] Comment:Testing performed by : [address] [address] Bilirubin, total 0.2 0.1 - 1.2 mg/dL [facility] Comment:Testing performed by : [address] [address] Protein, pl 7.1 6.5 - 8.5 g/dL [facility] Comment:Testing performed by : [address] [address] Albumin 3.2(L) 3.5 - 5.0 g/dL [facility] Comment:Testing performed by : [address] [address] Alk phos 102 40 - 130 Units/L [facility] Comment:Testing performed by : [address] [address] ALT 31 7 - 55 Units/L [facility] Comment:Testing performed by : [address] [address] AST 44 10 - 50 Units/L [facility] Comment: Hemolyzed; result may be falsely elevated Testing performed by: [address] [address] Blood 10/19/2024 4:05 AM CDT 10/19/2024 4:39 AM CDT us Matteo Julian MD LAB BLOOD ORDERABLES Cherise cheko Result P[facility]EL [address] [facility] Department [place] [address] * TRANSTHORACIC ECHO (TTE) COMPLETE W DOPPLER/CF W CONTRAST (10/18/2024 2:30 PM CDT) LV EF 30-35 % CONS SCIMAGE Anatomical Region Laterality Modality Ultrasound 10/18/2024 1:40 PM CDT Narrative 10/18/2024 6:15 PM CDT Transthoracic Echocardiographic Report Patient Name: LAMIN BETTS J : 1950 (74y 8m) Gender: M Study Date: 10/18/2024 01:40:19 PM Ht(Inch): 75 Wt(Lb): 267.99 BSA: 2.54 Adult Neuropsychologist: Lily Alford RDCS Location: [id number] Order Provider: HONORIO MOSQUEDA Heart Rate: 120 BMI: 33.49 BP: 121 / 94 Ref Provider: HONORIO MOSQUEDA PROCEDURES: Echocardiographic Report: ([id number]) Transthoracic complete echo with contrast, 2D, spectral [...] AI Peak PG 70.00 mmHg AI Decel Storey 4.33 m/s2 AI PHT 284.00 ms MV [...] PM Ht(Inch): 75 Wt(Lb): 267.99 BSA: 2.54 Adult Neuropsychologist: Lily Alford RDCS Location: [place] [address] Order Provider:HONORIO MOSQUEDA Heart Rate: 120 BMI: 33.49 BP: 121 / 94 Ref Provider: HONORIO MOSQUEDA PROCEDURES: Echocardiographic Report: ([id number]) Transthoracic complete echo withcontrast, 2D, spectral and [...] AI Peak PG 70.00 mmHg AI Decel Storey 4.33 m/s2 AI PHT 284.00 ms MV [...] August Roger MD 10/18/2024 6:14:29 PM CDT Honorio Mosqueda NP CV ECHO PROCEDURES F inal Result * ECG 12 lead (10/18/2024 5:59 AM CDT) [facility] Ventricular Rate EKG/Min 93 BPM [facility] Atrial Rate 93 BPM [facility] DE-Interval (MSEC) 208 ms [facility] QRS-Interval (MSEC) 162 ms [facility] QT-Interval (MSEC) 416 ms [facility] QTc 517 ms [facility] R [place] 257 degrees [facility] T [place] 92 degrees [facility] Diagnosis Sinus rhythm with occasional Premature ventricular complexes and Premature atrial complexes Right superior axis deviation Left bundle branch block Incomplete right bundle branch block Abnormal ECG When compared with ECG of 17-OCT-2024 13:15, Premature ventricular complexes are now Present Confirmed by SULTAN DREW M.D. ([id number]) on 10/18/2024 3:53:08 PM [facility] 10/18/2024 5:59 AM CDT 10/18/2024 3:53 PM CDT us Matteo Julian MD ECG ORDERABLES Final Res ult [facility] [place] * (ABNORMAL) Differential, auto (10/18/2024 4:42 AM CDT) Neutrophil abs 12.6(H) 1.5 - 6.5 K/cumm Comment:Testing performed by : [address] [address] Imm gran abs 0.1 0.0 - 0.1 K/cumm [facility] Comment:Testing performed by : [address] [address] Lymphocyte abs 0.4(L) 0.8 - 3.3 K/cumm [facility] Comment:Testing performed by : [address] [address] Monocyte abs 0.5 0.2 - 0.8 K/cumm [facility] Comment:Testing performed by : [address] [address] Eosinophil abs 0.0 0.0 - 0.5 K/cumm [facility] Comment:Testing performed by : [address] [address] Basophil abs 0.0 0.0 - 0.1 K/cumm [facility] Comment:Testing performed by : [address] [address] Neutrophil pct 92.4 % [facility] Comment: Interpretive Data Percent cell count reference ranges are not reported, since discordance with absolute values may lead to misinterpretation of CBC data. Current Interpretive Data was last revised on 2017. Testing performed by: [address] [address] Imm gran pct 0.8 % [facility] Comment: Interpretive Data Percent cell count reference ranges are not reported, since discordance with absolute values may lead to misinterpretation of CBC data. Current Interpretive Data was last revised on 2017. Testing performed by: [address] [address] Lymphocyte pct 3.2 % [facility] Comment: Interpretive Data Percent cell count reference ranges are not reported, since discordance with absolute values may lead to misinterpretation of CBC data. Current Interpretive Data was last revised on 2017. Testing performed by: [address] [address] Monocyte pct 3.5 % [facility] Comment: Interpretive Data Percent cell count reference ranges are not reported, since discordance with absolute values may lead to misinterpretation of CBC data. Current Interpretive Data was last revised on 2017. Testing performed by: [address] [address] Eosinophil pct 0.0 % [facility] Comment: Interpretive Data Percent cell count reference ranges are not reported, since discordance with absolute values may lead to misinterpretation of CBC data. Current Interpretive Data was last revised on 2017. Testing performed by: [address] [address] Basophil pct 0.1 % [facility] Comment: Interpretive Data Percent cell count reference ranges are not reported, since discordance with absolute values may lead to misinterpretation of CBC data. Current Interpretive Data was last revised on 2017. Testing performed by: [address] [address] Blood 10/18/2024 4:42 AM CDT 10/18/2024 5:22 AM CDT us Hnoorio Mosqueda NP LAB BLOOD ORDERABLES Final Result P[facility]EL [address] [facility] Department [place] [address] * (ABNORMAL) Iron profile w/ IBC (10/18/2024 4:42 AM CDT) [facility] Iron 16(L) 50 - 150 mcg/dL Comment:Testing performed by : [address] [address] TIBC 177(L) 250 - 400 mcg/dL [facility] Comment:Testing performed by : [address] [address] Transferrin saturation 9(L) 20 - 50 % [facility] Comment:Testing performed by : [address] [address] Blood 10/18/2024 4:42 AM CDT 10/18/2024 5:18 AM CDT Honorio Mosqueda G[employer] LAB BLOOD ORDERABLES Final Result Performing Organization Address City/State/[facility] Co de Phone Number PAVEL [address] Department [place] [address] * (ABNORMAL) CBC with auto differential (10/18/2024 4:42 AM CDT) [facility] WBC 13.6(H) 3.8 - 9.9 K/cumm Comment:Testing performed by : [address] [address] Hgb 9.5(L) 13.0 - 17.5 g/dL [facility] Comment:Testing performed by : [address] [address] Hct 30.5(L) 38.9 - 50.3 % [facility] Comment:Testing performed by : [address] [address] Plt 342 150 - 400 K/cumm [facility] Comment:Testing performed by : [address] [address] MPV 10.3 9.1 - 12.3 fL [facility] Comment:Testing performed by : [address] [address] RBC 3.27(L) 4.30 - 5.80 M/cumm [facility] Comment:Testing performed by : [address] [address] MCV 93.3 81.3 - 96.4 fL [facility] Comment:Testing performed by : [address] [address] MCH 29.1 27.1 - 33.3 pg [facility] Comment:Testing performed by : [address] [address] MCHC 31.1(L) 32.3 - 35.7 g/dL [facility] Comment:Testing performed by : [address], [address] RDW CV 15.0(H) 11.1 - 14.9 % [facility] Comment:Testing performed by : [address], [address] RDW SD 51.3(H) 35.7 - 48.1 fL [facility] Comment:Testing performed by : [address] [address] NRBC abs 0.00 0.00 - 0.01 K/cumm [facility] Comment:Testing performed by : [address] [address] Blood 10/18/2024 4:42 AM CDT 10/18/2024 5:22 AM CDT Barbara Collins MD LAB BLO OD ORDERABLES Final Result [facility] [address] [facility] Department [place] [address] * Phosphorus (10/18/2024 4:42 AM CDT) Phosphorus, pl 3.1 2.3 - 4.5 mg/dL Comment:Testing performed by : [address] [address] Blood 10/18/2024 4:42 AM CDT 10/18/2024 5:18 AM CDT Hoonrio Wilson Mosqueda [employer] LAB BLOOD ORDERABLES Final Result Performing Organization Address [facility] de Phone Number PAVEL [address] [address] * Magnesium (10/18/2024 4:42 AM CDT) [facility] Magnesium 2.0 1.4 - 2.5 mg/dL Comment:Testing performed by : [address] [address] Blood 10/18/2024 4:42 AM CDT 10/18/2024 5:18 AM CDT Honorio Wilson Mosqueda [employer] LAB BLOOD ORDERABLES Final Result Performing Organization Address [facility] de Phone Number YUNIOR[address] [address] * Ferritin (10/18/2024 4:42 AM CDT) [facility] Ferritin 353 30 - 400 ng/mL Comment:Testing performed by : [facility], [address] [place] [address]., [address] Blood 10/18/2024 4:42 AM CDT 10/18/2024 5:18 AM CDT Honorio Mosqueda G[employer] LAB BLOOD ORDERABLES Final Result Performing Organization Address [facility] de Phone Number YUNIOR[address] [address] * (ABNORMAL) Pneumonia PCR with aerobic culture and Gram stain Sputum (10/18/2024 12:24 AM CDT) [facility] Direct Specimen Exam Stain: Abundant squamous epithelial cells seen indicating excessive oropharyngeal contamination. Culture will not be processed further. Please submit another specimen. Smear results called to and read back by: Jackie Leos MLT ([phone]) on 10/18/2024 05:15:52 by: Willian Christine Jr, MT Results phoned to and read back by: [id number] on 10/18/2024 05:25:35 by: [id number] Comment:Testing performed by : [facility], [address] [place] [address]., [address] Direct Specimen Exam Molecular Analysis: Abundant squamous epithelial cells observed on Gram stain. Specimen will not be processed for rapid molecular analysis. PAVEL Comment:Testing performed by : [facility], [address] [place] [address], [address] Report Final Report: This is the final report. (.) PAVEL Comment:Testing performed by : [facility], [address] [place] [address], [address] Sputum 10/18/2024 12:2 4 AM CDT 10/18/2024 3:49 AM CDT [facility] PAVEL - 10/18/2024 7:45 AM CDT When rapid molecular testing results are reported, testing completed using the FAST FELT Pneumonia Panel. This molecular assay detects: Acinetobacter [...] performance characteristics have been confirmed by the [facility]. The performance of the FilmArray Pneumonia Panel has not been established for monitoring treatment of infection and bacterial nucleic acids may persist independent of organism viability. Honorio Mosqueda LAB MICROBIOLOGY - ENERAL ORDERABLES Final Result Performing Organization Address [facility] de Phone Number [address] [address] * Strep pneumoniae antigen, urine Urine (10/18/2024 [...] CDT 10/18/2024 2:12 AM CDT Honorio Mosqueda [facility] MICROBIOLOGY - ENERAL ORDERABLES Final Result Performing Organization Address [facility] de Phone Number [address] [address] * Legionella antigen Urine (10/18/2024 12:24 AM CDT) Legionella Ag Negative Negative Comment: Interpretive Data This test detects only Legionella pneumophila serogroup 1 antigen. Testing performed by [facility]biology [facility] ([phone]). Current interpretive data was last revised on 2019. Testing performed by: [facility], [address] [place] [address] Urine 10/18/2024 12:2 4 AM CDT 10/18/2024 3:58 AM CDT us Honorio Mosqueda [employer] LAB MICROBIOLOGY - G ENERAL ORDERABLES Final Result Performing Organization Address [facility] Co de Phone Number P[facility]EL [facility] [place] [address] * (ABNORMAL) Troponin T high-sensitivity 6-hour (10/17/2024 9:59 PM CDT) Trop T hs 118(H) <=22 ng/L Comment: Interpretive Data For further hscTnT resources including the diagnostic algorithm and an aid in interpretation, copy and paste this link: https://nrl.testcatalog.org/show/hsTrop Current Interpretive Data last revised 2020. Testing performed by: [address] [address] Trop T hs delta See Comment ng/L PAVEL Comment: Inappropriate collection time to report a delta. Testing performed by: [address] [address] Trop T hs pct delta See Comment % PAVEL Comment: Inappropriate collection time to report a delta. Testing performed by: [address] [address] Trop T hs interp See Comment PAVEL Comment: Inappropriate collection time to report a delta. Testing performed by: [address] [address] Blood 10/17/2024 9:59 PM CDT 10/17/2024 10:04 PM CDT us Eugenio Myrick DO LAB BLOOD ORDERABLES Final Result Performing Organization Address City/[facility]/ZIP Co de Phone Number PAVEL [facility]0 [facility] Department [place] [address] * (ABNORMAL) eGFR (10/17/2024 9:59 PM CDT) Pathologist [facility] eGFR 11(L) >=60 mL/min/1. 73 m2 Comment: [...] was last reviewed 2021. Testing performed by: [facility], [address] [place] [address]., [address] Blood 10/17/2024 9:59 PM CDT 10/17/2024 10:04 PM CDT Honorio Mosqueda NP LAB BLOOD ORDERABLES Final Result Performing Organization Address City/[facility]/ZIP Co de Phone Number [address] [place] [address] * (ABNORMAL) Calcium, ionized (10/17/2024 9:59 PM CDT) [facility] Calcium, Ionized 5.17(H) 4.50 - 5.10 mg/dL Blood 10/17/2024 9:59 PM CDT 10/18/2024 12:34 AM CDT Honorio Mosqueda NP LAB BLOOD ORDERABLES Final Result YUNIOR[address] [address] * Vitamin D 25 hydroxy (10/17/2024 9:59 PM CDT) [facility] Vitamin D 25-OH 37.0 30.0 - 80.0 ng/mL Blood 10/17/2024 9:59 PM CDT 10/18/2024 12:34 AM CDT Honorio Mosqueda G[employer] LAB BLOOD ORDERABLES Final Result Performing Organization Address City/[facility] Co de Phone Number [address] [place] [address] * Phosphorus (10/17/2024 9:59 PM CDT) [facility] Phosphorus, pl 3.3 2.3 - 4.5 mg/dL Comment:Testing performed by : [address] [address] Blood 10/17/2024 9:59 PM CDT 10/17/2024 10:04 PM CDT Honorio Mosqueda GAS SINGER LAB BLOOD ORDERABLES Final Result Performing Organization Address [facility] de Phone Number [address] [address] * (ABNORMAL) PTH (10/17/2024 9:59 PM CDT) [facility] PTH 130(H) 15 - 65 pg/mL Comment:Testing performed by : [address] [address] Blood 10/17/2024 9:59 PM CDT 10/17/2024 10:04 PM CDT Saurabhgino Katieanna Mosqueda G[employer]ER LAB BLOOD ORDERABLES Final Result Performing Organization Address City/[facility] Co de Phone Number [address] [address] * (ABNORMAL) Comprehensive metabolic panel (10/17/2024 9:59 PM CDT) [facility] Sodium 136 135 - 145 mmol/L Comment:Testing performed by : [facility], [address] [place] [address], [place]., [address] Potassium, pl 4.3 3.3 - 4.9 mmol/L PAVEL Comment:Testing performed by : [address], [place]., [address] Chloride 99 97 - 110 mmol/L PAVEL Comment:Testing performed by : [address], [place]., [address] CO2 22 22 - 32 mmol/L [facility] Comment:Testing performed by : [address], [place]., [address] Anion gap 15 2 - 15 mmol/L [facility] Comment:Testing performed by : [address], [place]., [address] BUN 65(H) 6 - 25 mg/dL [facility] Comment:Testing performed by : [address], [place]., [address] Creatinine 5.22(H) 0.80 - 1.30 mg/dL P[facility]EL Comment:Testing performed by : [address], [place]., [address] Glucose 244(H) 70 - 199 mg/dL [facility] Comment: Delta - Results Reviewed Interpretive Data [...] was last revised 2022. Testing performed by: [address] [address] Calcium 10.4(H) 8.5 - 10.3 mg/dL [facility] Comment:Testing performed by : [address], [place]., [address] Bilirubin, total 0.4 0.1 - 1.2 mg/dL PAVEL Comment:Testing performed by : [address] [address] Protein, pl 7.0 6.5 - 8.5 g/dL PAVEL Comment:Testing performed by : [address] [address] Albumin 3.4(L) 3.5 - 5.0 g/dL PAVEL Comment:Testing performed by : [address], [place]., [address] Alk phos 88 40 - 130 Units/L PAVEL Comment:Testing performed by : [address], [place]., [address] ALT 21 7 - 55 Units/L PAVEL Comment:Testing performed by : [address] [address] AST 26 10 - 50 Units/L PAVEL Comment:Testing performed by : [address] [address] Blood 10/17/2024 9:59 PM CDT 10/17/2024 10:04 PM CDT Honorio Mosqueda NP LAB BLOOD ORDERABLES Final Result [facility] Department [place] [address] * MRSA Only (Staphylococcus aureus) PCR Nasal (10/17/2024 8:16 PM CDT) PCR Scrn, Methicillin resistant Staphylococcus aureus (MRSA) Not Detected Not Detected Comment: Interpretive Data Testing performed using Nucleic Acid Amplification with the [employer] Xpert MRSA NxG Assay. This assay detects target DNA from mecA, mecC and the SCCmec insertion site of Staphylococcus aureus using Real-Time PCR and has been cleared by the FDA. Performance characteristics have been verified by the [facility]. Current Interpretive Data was last revised on 2023 Testing performed by: [address] [address] Nasal 10/17/2024 8:16 PM CDT 10/17/2024 8:21 PM CDT Honorio Mosqueda GAS S[employer]ER LAB MICROBIOLOGY - G ENERAL ORDERABLES Final Result Performing Organization Address City/[facility] Co de Phone Number PAVEL [address] [facility] [place] [address] * (ABNORMAL) Troponin T high-sensitivity 4-hour (10/17/2024 5:47 PM CDT) Trop T hs 128(H) <=22 ng/L Comment: Interpretive Data For further hscTnT resources including the diagnostic algorithm and an aid in interpretation, copy and paste this link: https://nrl.testcatalog.org/show/hsTrop Current Interpretive Data last revised 2020. Testing performed by: [address] [address] Trop T hs pct delta -10 % PAVEL Comment:Testing performed by : [address] [address] Trop T hs interp Equivocal PAVEL Comment:Testing performed by : [address] [address] Blood 10/17/2024 5:47 PM CDT 10/17/2024 5:51 PM CDT Eugenio Myrick DO LAB BLOOD ORDERABLES Final Result Performing Organization Address [facility] Co de Phone Number PAVEL [address] [facility] [place] [address] * Sepsis Lactate w/ Reflex (10/17/2024 5:47 PM CDT) Pathologist [facility] Sepsis Lactate 1.2 0.7 - 2.0 mmol/L Comment:Testing performed by : [address] [address] Blood 10/17/2024 5:47 PM CDT 10/17/2024 5:51 PM CDT Jonathan Lentz DO LAB BLOOD ORDERABLES Final Result PAVEL [facility] [address] [facility] Department [place] [address] * (ABNORMAL) POC Blood Gas and Chemistries, Venous - (10/17/2024 4:27 PM CDT) pH,ericka POC 7.47(H) 7.32 - 7.43 Comment:Testing performed by : [address] [address] pCO2, ericka POC 30(L) 40 - 50 mmHg PAVEL Comment:Testing performed by : [address] [address] pO2,ericka POC 77 mmHg PAVEL Comment: Interpretive Data No reference range established. Current interpretive data was last revised 2020. Testing performed by: [address] [address] HCO3, ericka (Calc) POC 22 20 - 30 mmol/L PAVEL Comment:Testing performed by : [address] [address] Base excess, ericka POC -1 mmol/L PAVEL Comment: Interpretive Data No reference range established. Current interpretive data was last revised 2020. Testing performed by: [address] [address] Blood 10/17/2024 4:27 PM CDT 10/17/2024 4:27 PM CDT Jonathan Lentz DO LAB POCT ORDERABLES - DEVIC E Final Result Performing Organization Address City/[facility]/ZIP Co de Phone Number PAVEL ROS[facility] [address] [facility] Department [place] [address] * [place] Pulmonary Perfusion Imaging (10/17/2024 3:49 [...] Oliverio Steinberg M.D. LB: JC Report ID: [id number] Reading Location: [id number] Procedure Note Oliverio Steinberg MD - 10/17/2024 [...] Oliverio Steinberg M.D. LB: JC Report ID: [id number] Reading Location: [id number] Jonathan Lentz DO IMG NM PROCEDURES Final Res ult * Blood culture Blood (10/17/2024 3:10 PM CDT) Report Final Report: No growth Comment:Testing performed by : [facility], [address] [place]., [address] Blood 10/17/2024 3:10 PM CDT 10/17/2024 7:29 PM CDT Narrative PAVEL ROSADO - 10/22/2024 7:01 AM CDT Collection->Peripheral Received [...] performance characteristics have been verified by the [facility] Microbiology Laboratory. For questions about this culture, contact the Microbiology Laboratory at [phone]. Interpretive data was last revised on 24. Jonathan Lentz DO LAB MICROBIOLOGY - GENERAL ORDERABLES Final Result PAVEL ROSADO [address] [facility] Department [place] [address] * Blood culture Blood (10/17/2024 3:10 PM CDT) Report Final Report: No growth Comment:Testing performed by : [facility], [address] [place] [address] Blood 10/17/2024 3:10 PM CDT 10/17/2024 7:30 PM CDT Narrative PAVEL ROSADO - 10/22/2024 7:01 AM CDT Collection->Peripheral 1. [...] performance characteristics have been verified by the [facility]biology [facility]. For questions about this culture, contact the Microbiology Laboratory at [phone]. Interpretive data was last revised on 24. Jonathan Lentz DO LAB MICROBIOLOGY - GENERAL ORDERABLES Final Result PAVEL [address] [facility] Department [place] [address] * (ABNORMAL) Troponin T high-sensitivity 2-hour (10/17/2024 2:55 PM CDT) Trop T hs 133(H) <=22 ng/L Comment: Interpretive Data For further hscTnT resources including the diagnostic algorithm and an aid in interpretation, copy and paste this link: https://nrl.testcatalog.org/show/hsTrop Current Interpretive Data last revised 2020. Testing performed by: [facility], [address] [place] [address]., [address] Trop T hs pct delta -6 % PAVEL ROSADO Comment:Testing performed by : [address] [address] Trop T hs interp Equivocal PAVEL Comment:Testing performed by : [address] [address] Blood 10/17/2024 2:55 PM CDT 10/17/2024 2:59 PM CDT Eugenio Myrick DO LAB BLOOD ORDERABLES Final Result [facility] [address] [facility] Department [place] [address] * Influenza A/B, RSV, and COVID-19 PCR Nasopharyngeal (10/17/2024 2:55 PM CDT) COVID-19 RNA Negative Negative Comment:Testing performed by : [address] [address] Influenza A RNA Negative Negative PAVEL Comment:Testing performed by : [address] [address] Influenza B RNA Negative Negative PAVEL Comment:Testing performed by : [address] [address] RSV RNA Negative Negative PAVEL Comment: Interpretive data: Testing performed by [facility]. This test is performed using the [employer] Xpert Xpress CoV-2/Flu/RSV plus assay. This is a multiplex, real-time reverse transcriptase PCR assay intended for the qualitative detection of nucleic acid from SARS-CoV-2, influenza A, influenza B, and respiratory syncytial virus. This assay has been cleared by the [place] Food and Drug administration. The performance characteristics have been verified by the [facility]. Results must be considered in the clinical context, and a negative result does not rule out infection. Interpretive Data last revised 2023 Testing performed by: [address] [address] Nasopharyngeal 10/17/2024 2: 55 PM CDT 10/17/2024 2:58 PM CDT Narrative [facility] - 10/17/2024 3:38 PM CDT Is the Patient experiencing symptoms consistent with COVID?->Yes Li [facility] LAB MICROBIOLOGY - GENERAL RICARDO HAMPTON Final Result Performing Organization Address [facility] Co de Phone Number [address] [address] * (ABNORMAL) Sepsis Lactate w/ Reflex (10/17/2024 2:55 PM CDT) Pathologist [facility] Sepsis Lactate 2.1(H) 0.7 - 2.0 mmol/L Comment:Testing performed by : [facility], [address] [place] [address]., [address] Blood 10/17/2024 2:55 PM CDT 10/17/2024 2:58 PM CDT Jonathan Lentz DO LAB BLOOD ORDERABLES Final Result Performing Organization Address [facility] Co de Phone Number [address] [address] * (ABNORMAL) Pro B-type natriuretic peptide (10/17/2024 2:55 PM CDT) [facility] NT-proBNP 15,819(H) <=300 pg/mL Comment: Interpretive Comments: [...] et.al. Eur Heart J. 2006:27:330-337. 2. Froylan NGUYỄN, Kiarra HAMMER. J. AM Uday Cardiol: Cardiovasc Imag. 2009;2: 216- 225. Interpretive Data Last Revised Date: 2018. Testing performed by: [facility], [address] [place] [address], [place]., [address] Blood 10/17/2024 2:55 PM CDT 10/17/2024 2:59 PM CDT Jonathan Lentz DO LAB BLOOD ORDERABLES Final Result PAVEL [address] [facility] Department [place] [address] * XR Chest 1 Vw Portable (if [...] Virginie Conrad D.O. PS: PS Report ID: [id number] Reading Location: [place] [address] Procedure Note Virginie Conrad DO - 10/17/2024 [...] Virginie Conrad D.O. PS: PS Report ID: [id number] Reading Location: [place] [address] Jonathan Lentz DO IMG XR PROCEDURES Final Res ult * ECG 12 lead (10/17/2024 1:15 PM CDT) Ventricular Rate EKG/Min 101 BPM [facility] Atrial Rate 101 BPM [facility] DE-Interval (MSEC) 192 ms [facility] QRS-Interval (MSEC) 154 ms [facility] QT-Interval (MSEC) 390 ms [facility] QTc 505 ms [facility] P [place] 85 degrees [facility] R [place] 264 degrees [facility] T [place] 59 degrees [facility] Diagnosis Sinus tachycardia with Premature supraventricular complexes Right bundle branch block Abnormal ECG When compared with ECG of 12-JAN-2004 11:38, Premature supraventricular complexes are now Present Right bundle branch block is now Present Confirmed by ASHLEY WYNNE M.D. ([id number]) on 10/18/2024 9:51:49 PM [facility] 10/17/2024 1:15 PM CDT 10/18/2024 9:51 PM CDT Jonathan Lentz DO ECG ORDERABLES Final Resul t Performing Organization Address City/[facility]/ZIP Co de Phone Number [facility] * (ABNORMAL) Troponin T high-sensitivity series (baseline, 2hr, 4hr, 6hr) (10/17/2024 1:12 PM CDT) Pathologist [facility] Trop T hs 142(H) <=22 ng/L Comment: Interpretive Data For further hscTnT resources including the diagnostic algorithm and an aid in interpretation, copy and paste this link: https://nrl.testcatalog.org/show/hsTrop Current Interpretive Data last revised 2020. Testing performed by: [facility], [address] [place] [address]., [address] Blood 10/17/2024 1:12 PM CDT 10/17/2024 1:40 PM CDT Jonathan Lentz DO LAB BLOOD ORDERABLES Final Result PAVEL [address] [facility] Department [place] [address] * (ABNORMAL) eGFR (10/17/2024 1:12 PM CDT) Pathologist [facility] eGFR 12(L) >=60 mL/min/1. 73 m2 Comment: [...] was last reviewed 2021. Testing performed by: [address] [address] Blood 10/17/2024 1:12 PM CDT 10/17/2024 1:40 PM CDT Jonathan Lentz DO LAB BLOOD ORDERABLES Final Result PAVEL [address] Department [place] [address] * (ABNORMAL) Differential, auto (10/17/2024 1:12 PM CDT) Neutrophil abs 13.0(H) 1.5 - 6.5 K/cumm Comment:Testing performed by : [address] [address] Imm gran abs 0.1 0.0 - 0.1 K/cumm PAVEL Comment:Testing performed by : [address] [address] Lymphocyte abs 0.6(L) 0.8 - 3.3 K/cumm PAVEL Comment:Testing performed by : [address] [address] Monocyte abs 1.5(H) 0.2 - 0.8 K/cumm PAVEL Comment:Testing performed by : [address] [address] Eosinophil abs 0.0 0.0 - 0.5 K/cumm PAVEL Comment:Testing performed by : [address] [address] Basophil abs 0.0 0.0 - 0.1 K/cumm PAVEL Comment:Testing performed by : [address] [address] Neutrophil pct 85.3 % PAVEL Comment: Interpretive Data Percent cell count reference ranges are not reported, since discordance with absolute values may lead to misinterpretation of CBC data. Current Interpretive Data was last revised on 2017. Testing performed by: [address] [address] Imm gran pct 0.6 % PAVEL Comment: Interpretive Data Percent cell count reference ranges are not reported, since discordance with absolute values may lead to misinterpretation of CBC data. Current Interpretive Data was last revised on 2017. Testing performed by: [address] [address] Lymphocyte pct 3.9 % PAVEL Comment: Interpretive Data Percent cell count reference ranges are not reported, since discordance with absolute values may lead to misinterpretation of CBC data. Current Interpretive Data was last revised on 2017. Testing performed by: [address] [address] Monocyte pct 10.0 % PAVEL Comment: Interpretive Data Percent cell count reference ranges are not reported, since discordance with absolute values may lead to misinterpretation of CBC data. Current Interpretive Data was last revised on 2017. Testing performed by: [address] [address] Eosinophil pct 0.1 % PAVEL Comment: Interpretive Data Percent cell count reference ranges are not reported, since discordance with absolute values may lead to misinterpretation of CBC data. Current Interpretive Data was last revised on 2017. Testing performed by: [address] [address] Basophil pct 0.1 % PAVEL Comment: Interpretive Data Percent cell count reference ranges are not reported, since discordance with absolute values may lead to misinterpretation of CBC data. Current Interpretive Data was last revised on 2017. Testing performed by: [address] [address] Blood 10/17/2024 1:12 PM CDT 10/17/2024 1:40 PM CDT Jonathan Angel Lentz LAB BLOOD ORDERABLES Final Result [facility] [address] [facility] Department [place] [address] * (ABNORMAL) CBC with auto differential (10/17/2024 1:12 PM CDT) WBC 15.3(H) 3.8 - 9.9 K/cumm Comment:Testing performed by : [address] [address] Hgb 9.7(L) 13.0 - 17.5 g/dL PAVEL Comment:Testing performed by : [address] [address] Hct 29.8(L) 38.9 - 50.3 % PAVEL Comment:Testing performed by : [address] [address] Plt 348 150 - 400 K/cumm PAVEL Comment:Testing performed by : [address] [address] MPV 9.8 9.1 - 12.3 fL PAVEL Comment:Testing performed by : [address] [address] RBC 3.24(L) 4.30 - 5.80 M/cumm PAVEL Comment:Testing performed by : [address] [address] MCV 92.0 81.3 - 96.4 fL PAVEL Comment:Testing performed by : [address] [address] MCH 29.9 27.1 - 33.3 pg PAVEL Comment:Testing performed by : [address] [address] MCHC 32.6 32.3 - 35.7 g/dL PAVEL Comment:Testing performed by : [address] [address] RDW CV 15.0(H) 11.1 - 14.9 % PAVEL Comment:Testing performed by : [address] [address] RDW SD 51.2(H) 35.7 - 48.1 fL PAVEL Comment:Testing performed by : [address] [address] NRBC abs 0.00 0.00 - 0.01 K/cumm PAVEL Comment:Testing performed by : [address] [address] Blood 10/17/2024 1:12 PM CDT 10/17/2024 1:40 PM CDT [facility] Final Result Performing Organization Address [facility]/ZIP Co de Phone Number [address] [place] [address] * Magnesium (10/17/2024 1:12 PM CDT) Pathologist [facility] Magnesium 1.5 1.4 - 2.5 mg/dL Comment:Testing performed by : [address] [address] Blood 10/17/2024 1:12 PM CDT 10/17/2024 1:40 PM CDT [facility] BLOOD ORDERABLES Final Result Performing Organization Address City/[facility] Co de Phone Number [address] [address] * (ABNORMAL) Comprehensive metabolic panel (10/17/2024 1:12 PM CDT) Pathologist [facility] Sodium 136 135 - 145 mmol/L Comment:Testing performed by : [address] [address] Potassium, pl 4.5 3.3 - 4.9 mmol/L [facility] Comment: Hemolyzed; Potassium value may be falsely elevated by as much as 1.0 mmol/L. Suggest redraw and reanalysis. Testing performed by: [address], [place]., [address] Chloride 98 97 - 110 mmol/L [facility] Comment:Testing performed by : [address] [address] CO2 23 22 - 32 mmol/L [facility] Comment:Testing performed by : [address], [place]., [address] Anion gap 15 2 - 15 mmol/L [facility] Comment:Testing performed by : [address] [address] BUN 56(H) 6 - 25 mg/dL [facility] Comment:Testing performed by : [address], [place]., [address] Creatinine 4.86(H) 0.80 - 1.30 mg/dL [facility] Comment:Testing performed by : [address] [address] Glucose 119 70 - 199 mg/dL [facility] Comment: Interpretive Data Fasting glucose >/= [...] was last revised 2022. Testing performed by: [address] [address] Calcium 10.5(H) 8.5 - 10.3 mg/dL [facility] Comment:Testing performed by : [address], [place]., [address] Bilirubin, total 0.6 0.1 - 1.2 mg/dL [facility] Comment:Testing performed by : [address], [place] [address] Protein, pl 7.3 6.5 - 8.5 g/dL PAVEL ROSADO Comment:Testing performed by : [facility], [address] [place] [address]., [address] Albumin 3.6 3.5 - 5.0 g/dL PAVEL ROSADO Comment:Testing performed by : [address] [address] Alk phos 91 40 - 130 Units/L PAVEL Comment:Testing performed by : [facility], [address] [place] [address]., [address] ALT 22 7 - 55 Units/L PAVEL Comment:Testing performed by : [address] [address] AST 29 10 - 50 Units/L PAVEL Comment: Hemolyzed; result may be falsely elevated Testing performed by: [address] [address] Blood 10/17/2024 1:12 PM CDT 10/17/2024 1:40 PM CDT Jonathan Lentz DO LAB BLOOD ORDERABLES Final Result PAVEL ROSADO [address] [facility] Department [place] [address] from Last 3 Months
--- OUTSIDE RECORDS SUMMARY | 2024-12-23 15:53 | XMS_ITS | Clinical Summary ---
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 [employer] Name Role Phone Soraya Jauregui MD Primary Care Provider Allergies No known active allergies Medications aspirin [...] every 12 (twelve) hours 60 tablet 11 Active Additional Information Patient taking differently:5 mg oral2 times daily, Indications: atrial fibrillation, Informant: Spouse/Significant Other, Reported on 12/22/2024 sacubitriL-vals seven (ENTRESTO) 24-26 mg tabletIndicatio ns:chronic heart failure Take 0.5 tablets by mouth 2 (two) times a day 30 tablet Active ipratropium-alb uteroL (DUO-NEB) 0.5-2.5 mg/3 mL [...] OF BREATH OR WHEEZING 8.5 g 3 Active Additional Information Patient taking differently: 1 puff inhalation Every 6 hours PRN, wheezing, shortness of breath, Informant: Spouse/Significant Other, Reported on 12/22/2024 acetaminophen (TYLENOL) 325 mg tablet Take 2 tablets (650 mg total) by mouth every 6 (six) hours as needed for pain Active amiodarone (PACERONE) 200 mg tablet Take 1 tablet (200 mg total) by mouth daily 30 tablet 2024 Active multivitamin capsule Take 1 capsule [...] artery disease of n ative artery of white earth heart with stable angina pectoris 03/21/2024 Chronic obstructive pulmonary disease 03/21/2024 CKD (chronic kidney disease), stage V 03/21/2024 Secondary hyperparathyroidism of renal origin Asymptomatic stenosis of left carotid artery Assessment & Plan (09/01/2024 10:18 AM 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): Vrfp-ik-[id number] disease to the right ICA moderate disease [...] 10/18/2024 11/02/2024 Coronary artery disease invo lving white earth coronary artery of white earth heart without angina pectoris 05/26/2019 03/21/2024 Encounters Date Type Department Care Team Description 5 Telephone [facility] Cardiology [address] [phone] Orlando Porter MD 5 1:30 PM CDT Office Visit [facility] Cardiology [address] [place] [phone] Orlando Porter MD History of coronary artery stent placement (Primary Dx); 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; Longstanding persistent atrial fibrillation (HCC) 5 Telephone [facility] [address] [place] [address] [place] [address] Jon Pope MD PhD 5 Telephone [facility] [address] [place] [address] [place] [address] Jon Pope MD PhD 5 2:00 PM CDT Office Visit [address] [place] [address] 5 1:45 PM CDT Office Visit [facility] [address] [place] [address] [place] [address] Jon Pope MD PhD ESRD on hemodialysis (HCC) (Primary Dx); ESRD on dialysis (HCC); CKD (chronic kidney disease), stage V (HCC) 5 Telephone [facility] Pulmonary [place] [address] [facility] [address] [place] [phone] Rigoberto Croft MD Request For Order(s) 5 3:39 PM CDT - 5 11:59 PM CDT Hospital Encounter [facility] Respiratory Therapy [address] [place] [address] Simple chronic bronchitis (HCC) Discharge Disposition: Discharge to home or self care 5 1:00 PM CDT Office Visit [facility] Medical [facility] Primary Care [address] [facility] [address] [place] [phone] Jackie Umanzor NP CAP (community acquired pneumonia) [...] adult 5 12:15 PM CDT Office Visit [facility] Pulmonary [address] [place] [address] Rigoberto Croft MD Simple chronic bronchitis (HCC) (Primary Dx); Dyspnea on exertion; Chronic systolic congestive heart failure (HCC) 5 10:00 AM CDT Office Visit [facility] Medical [facility] Cardiology [address] [facility] [address] [place] [address] Rosi Corrales NP Atrial fibrillation, unspecified type (HCC) (Primary Dx); Chronic systolic congestive heart failure (HCC); Coronary artery disease involving white earth coronary artery of white earth heart without angina pectoris; Hemodialysis-associated hypotension; CKD (chronic kidney disease), stage V (HCC) 5 Telephone [facility] 12th [place] [address] Jon Pope MD PhD [address] [facility] Medical [facility] Primary Care [facility] [address] [place] [phone] Soraya Jauregui MD Appointment Request [address] [place] [address] Maxine Sr RN 5 12:00 PM CDT Home Care Visit [facility] Hospice - [address] [place] [address] Eloina Corbin RN SN HOSPICE TELEPHONE VISIT [address] [facility] Medical Group Primary Care [address] [place] [address] Soraya Jauregui MD Medical Question/Miscellaneous; Palliative Care Follow-up [address] [facility] Medical [facility] Primary Care [address] [place] [address] Soraya Jauregui MD Appointment Request 5 TCC Subsequent Outreach [facility] [address] [place] [phone] Bebeto Kelly RN 5 11:30 AM CDT - 5 12:30 PM CDT Surgery [facility] Cardiac Roll Capper [address] [place] [phone] Lucius Jauregui MD INSERT TUNNELED CV CATH W/PORT OR PUMP >5YO [address] 5 9:30 AM CDT - 5 10:30 AM CDT Surgery [facility] Cardiac Roll Capper [address] [place] [address] Lucius Jauregui MD INSERT TUNNELED CV CATH W/PORT OR PUMP >5YO [address] 5 TCC Initial Eligibility Review [facility] [address] [place] [address] Bebeto Kelly RN 5 2:23 PM CDT - 5 2:52 PM CDT Hospital Encounter [address] [address] Jonathan Lentz DO Bezuneh, Abraham Deneke, MD Lopez, Manuel Emilio, MD Al Furgani, Mahmud Hendricks, MD Ofoma, MD Joesph Baez, MD Kev Blanco, Chas [...] Discharge to home or self care [address] [facility] Medical Group Primary Care [address] [place] [phone] Soraya Jauregui MD from Last 3 Months Immunizations Immunization Administration Dates Next Due Hep [...] nt, Subunit, Adjuvanted, PF, IM (Arexvy) 07/22/2024 Surgical History Surgery Date Site/Laterality Comments PROSTATECTOMY 2009 Prostatectomy VASCULAR SURGERY PROCEDURE 10/21/2024 Chest/N/A Right femoral temporary dialysis catheter - Dr. Lucius Jauregui Medical devices from this surgery are in the Medical Devices section. VASCULAR SURGERY PROCEDURE 10/25/2024 Right RIJ permacath - Dr. Lucius Jauregui Medical devices from this surgery are in the Medical Devices section. CORONARY ANGIOPLASTY WITH STENT PLACEMENT 08/03/2009 - 08/02/2010 Medical History Medical History Date Comments Hypertension Hypertension Malignant neoplasm of prostate (HCC) Prostate cancer - 01/18/04 RRP; Rik 3+3; T2c NoMo (Added by NAHUM Conv) Personal history of other di seases of the circulatory system History of hypertension - (A dded by NAHUM Joyner) Chronic kidney disease Family History Medical History Relation Name Comments Other Father 2 Smoker - metast atic CA; Cause of : Smoker - metastatic CA Other Mother 2 Train accident; Cause of : Train accident Relation Name Status Comments Father 1 (Age 67) Father 2 Mother 1 (Age 46) Mother 2 Social History Tobacco Use Types Packs/Day Years Used Date Smoking Tobacco: Former Cigarettes Q uit: 08/03/2024 Tobacco Cessation:Counseling Given: Not Answered Alcohol Use Standard Drinks/Week Comments Yes 0 (1 standard drink = 0.6 oz pur e alcohol) [facility] Utilities Answer Date Recorded In the past 12 months has e electric, gas, oil, or water [employer] threatened to shut off services in your [...] often do you attend chur ch or congregational services? Patient unable to answer 11/10/2024 Do you belong to any clubs o r organizations such as gnosticist groups, unions, fraternal or athletic groups, or [...] any time in the past 12 m [facility], were you homeless or living in a assisted (including now)? Patient unable to answer 11/10/2024 Personal Safety Answer Date Recorded Have you ever been in or are you currently in a harmful physical or emotional relationship or is someone making you feel afraid or unsafe? 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 Gender Identity Not on file Sexual Orientation Not on file Obstetrics History Last Filed Vital Signs Vital Sign Reading [...] Description 01/03/2025 7:30 AM CDT Hospital Encounter [facility] Operating Room [address] [place] [address] Jon Pope MD PhD [id number] [place] [address] 01/03/2025 7:30 AM CDT Anesthesia Event [facility] Operating Room [address] [place] [address] China Mercado, JUNIOR [address] [facility] MA[address] [id number] [place] [address] 01/03/2025 7:30 AM CDT - 01/03/2025 11:15 AM CDT Surgery [facility] Operating Room [address] [place] [address] Jon Pope MD PhD [address] [id number] [place] [address] CREATION ARTERIOVENOUS FISTULA - ARM Scheduled Procedures Name Priority Associated Diagnoses Date/Ti me CREATION ARTERIOVENOUS FISTULA - ARM ESRD (end stage renal disease) (HCC) 01/03/2025 7:30 AM CDT ARTERIOVENOUS GRAFT - LOWER EXTREMITY ESRD (end stage renal disease) (HCC) 01/03/2025 7:30 AM CDT Health Maintenance Due Date Last Done Comments Colon Cancer Screening-Colonoscopy 1950 DTaP/Tdap/Td Vaccine (1 - Tdap) 1961 Zoster Vaccine (1 of 2) 02/08/2000 Well Visit 65+ 2015 Covid-19 Vaccine (8 2023-2 5 season) 2025 07/22/2024, 07/23/2023, 07/15/2022, Additional history exists Fall Risk Assessment 10/27/2025 10/27/2024, 03/29/2024, 01/26/2018 Depression Screening 11/15/2025 11/15/2024, 03/29/20 Pneumococcal vaccine 65+ Completed 07/08/2019, 06/05 Influenza Vaccine Completed 07/22/2024, , 07/15/2022, Additional history exists Hepatitis C Screening Completed 10/20/2024 Abdominal Aortic Aneurysm (A AA) Screen Completed 10/25/2024 Hepatitis B Screening Completed 11/25/2024, 025 Medical Devices Implanted Type Area Digital Performance Analyst Device Identifier Shelf Expiration Date Model / Serial / Lot [employer] Mahurkar Elite Double-D 12fr 24cm 2 Lumen Atraumatic Tip [id number] - [id number] Implanted:Qty: 1 on 10/21/2024 by Lucius Jauregui MD at [facility] [employer] [id number] / / [email or web address] Peripheral Vascular Kit Catheter Hemodialysis Dual Lumen Straight Alf Polyurethane Glidepath [id number] - [id number] Implanted:Qty: 1 on 10/25/2024 by Lucius Jauregui MD at [facility] [email or web address] Peripheral Vascular [id number] / / Procedures Procedure Name Priority Date/Time [...] TUNNELED CV CATH W/PORT OR PUMP >5YO [address] Routine 10/25/2024 11:38 AM CDT CKD (chronic [...] PM CDT Acute hypoxic respiratory failure (HCC) CA INSJ NON-TUNNELED CENTRAL VENOUS CATH AGE 5 [...] TUNNELED CV CATH W/PORT OR PUMP >5YO [address] Routine 10/21/2024 10:01 AM CDT CKD (chronic [...] HD Access (12/15/2024 1:56 PM CDT) Narrative [facility]PACS[facility] - 12/15/2024 1:56 PM CDT This procedure was performed and interpreted by the provider. Please refer to the provider's procedure/OR operative note for results. us Jon Pope MD PhD POCUS ORDERABLES Final Re sult RAD_PACS_POCUS_[facility] * (ABNORMAL) Pulmonary Function Test - (11/22/2024 4:36 PM CDT) FVC POST 4.06 3.52 - 6.12 L [facility] FEV1 POST 1.95(A) 2.52 - 4.52 L [facility] [id number] 48.03(A) 60.59 - 86.91 % [facility] QLZ25-74% POST 0.68(A) 1.02 - 4.65 L/s [facility] PEF POST 3.36(A) 6.67 - 10.66 L/s [facility] DLCOc SB 8.46(A) 23.68 - 37.54 ml/(min*mm Hg) [facility] DLCO/VA PRE 1.70(A) 2.75 - 4.77 ml/(min*mm Hg*L) [facility] VA 4.99(A) 7.99 - 7.99 L [facility] TLC PRE 8.85 6.99 - 9.[address] [facility] VC PRE 3.88(A) 3.98 - 5.[address] [facility] IC PRE 2.83(A) 3.76 - 3.[address] [facility] FRC PL PRE 6.02(A) 3.05 - 5.[address] [facility] ERV PRE 1.05(A) 1.14 - 1.14 L [facility] RV PRE 4.97(A) 2.22 - 3.57 L [facility] VTG 6.[address] [facility] RAW PRE 4.02(A) 3.06 - 3.06 cmH2O*s/L [facility] FVC PRE 3.88 3.52 - 6.12 L [facility] FEV1 PRE 1.94(A) 2.52 - 4.52 L [facility] [id number] 50.01(A) 60.59 - 86.91 % [facility] KZJ40-41% PRE 0.49(A) 1.02 - 4.65 L/s [facility] PEF PRE 3.40(A) 6.67 - 10.66 L/s [facility] Anatomical Region Laterality Modality PFT 11/22/2024 3:45 [...] correlation. Electronically signed by Temo Chaves MD, [facility] Pulmonary and Critical Care Medicine [facility] us Rigoberto Croft MD PFT ORDERABLES Final Result [...] LAB BLOOD ORDERABLES Fin al Result [facility] [address] [facility] Department [place] [address] * (ABNORMAL) Differential, auto (10/27/2024 2:44 AM CDT) Neutrophil abs 24.2(H) 1.5 - 6.5 K/cumm Imm gran abs 1.2(H) 0.0 - 0.1 K/cumm [facility] Lymphocyte abs 1.9 0.8 - 3.3 K/cumm [facility] Monocyte abs 1.3(H) 0.2 - 0.8 K/cumm [facility] Eosinophil abs 0.1 0.0 - 0.5 K/cumm [facility] Basophil abs 0.1 0.0 - 0.1 K/cumm [facility] Neutrophil pct 84.2 % [facility] Comment: Interpretive Data Percent cell count reference ranges are not reported, since discordance with absolute values may lead to misinterpretation of CBC data. Current Interpretive Data was last revised on 2017. Imm gran pct 4.1 % [facility] Comment: Interpretive Data Percent cell count reference ranges are not reported, since discordance with absolute values may lead to misinterpretation of CBC data. Current Interpretive Data was last revised on 2017. Lymphocyte pct 6.5 % [facility] Comment: Interpretive Data Percent cell count reference ranges are not reported, since discordance with absolute values may lead to misinterpretation of CBC data. Current Interpretive Data was last revised on 2017. Monocyte pct 4.5 % [facility] Comment: Interpretive Data Percent cell count reference ranges are not reported, since discordance with absolute values may lead to misinterpretation of CBC data. Current Interpretive Data was last revised on 2017. Eosinophil pct 0.2 % [facility] Comment: Interpretive Data Percent cell count reference ranges are not reported, since discordance with absolute values may lead to misinterpretation of CBC data. Current Interpretive Data was last revised on 2017. Basophil pct 0.5 % [facility] Comment: Interpretive Data Percent cell count reference ranges are not reported, since discordance with absolute values may lead to misinterpretation of CBC data. Current Interpretive Data was last revised on 2017. Blood 10/27/2024 2:44 AM CDT 10/27/2024 2:56 AM CDT Barbara Collins MD LAB BLO OD ORDERABLES Final Result Performing Organization Address [facility] Co de Phone Number [address] [place] [address] * (ABNORMAL) CBC with auto differential (10/27/2024 2:44 AM CDT) WBC 28.7(H) 3.8 - 9.9 K/cumm Hgb 10.1(L) 13.0 - 17.5 g/dL [facility] Hct 34.7(L) 38.9 - 50.3 % [facility] Plt 298 150 - 400 K/cumm [facility] MPV 10.3 9.1 - 12.3 fL [facility] RBC 3.44(L) 4.30 - 5.80 M/cumm [facility] MCV 100.9(H) 81.3 - 96.4 fL [facility] MCH 29.4 27.1 - 33.3 pg [facility] MCHC 29.1(L) 32.3 - 35.7 g/dL [facility] RDW CV 16.1(H) 11.1 - 14.9 % [facility] RDW SD 58.0(H) 35.7 - 48.1 fL [facility] NRBC abs 0.04(H) 0.00 - 0.01 K/cumm [facility] Blood 10/27/2024 2:44 AM CDT 10/27/2024 2:56 AM CDT Barbara Collins MD LAB BLO OD ORDERABLES Final Result Performing Organization Address [facility] Co de Phone Number [facility] [address] [place] [address] * (ABNORMAL) Basic metabolic panel (10/27/2024 2:44 AM CDT) [facility] Sodium 136 135 - 145 mmol/L Potassium, pl 4.8 3.3 - 4.9 mmol/L [facility] Chloride 100 97 - 110 mmol/L [facility] CO2 17(L) 22 - 32 mmol/L [facility] Anion gap 19(H) 2 - 15 mmol/L [facility] BUN 93(H) 6 - 25 mg/dL [facility] Creatinine 6.56(H) 0.80 - 1.30 mg/dL [facility] Glucose 115 70 - 199 mg/dL [facility] Comment: Interpretive Data Fasting glucose >/= 126 [...] 2022. Calcium 8.2(L) 8.5 - 10.3 mg/dL [facility] Blood 10/27/2024 2:44 AM CDT 10/27/2024 2:57 AM CDT Carmen Walter MD LAB BLOOD ORDERABLES Fin al Result [facility] [address] [facility] Department [place] [address] * (ABNORMAL) eGFR (10/26/2024 2:55 AM CDT) [facility] eGFR 9(L) >=60 mL/min/1. 73 m2 Comment: [...] Jones MD LAB BLOOD ORDERABLES Final Result [facility] [address] [facility] Department of Laboratories [place], [place] [id number] * (ABNORMAL) Differential, auto (10/26/2024 2:55 AM CDT) Neutrophil abs 23.2(H) 1.5 - 6.5 K/cumm Imm gran abs 1.5(H) 0.0 - 0.1 K/cumm [facility] Lymphocyte abs 2.2 0.8 - 3.3 K/cumm [facility] Monocyte abs 1.2(H) 0.2 - 0.8 K/cumm [facility] Eosinophil abs 0.0 0.0 - 0.5 K/cumm [facility] Basophil abs 0.1 0.0 - 0.1 K/cumm [facility] Neutrophil pct 82.2 % [facility] Comment: Interpretive Data Percent cell count reference ranges are not reported, since discordance with absolute values may lead to misinterpretation of CBC data. Current Interpretive Data was last revised on 2017. Imm gran pct 5.3 % [facility] Comment: Interpretive Data Percent cell count reference ranges are not reported, since discordance with absolute values may lead to misinterpretation of CBC data. Current Interpretive Data was last revised on 2017. Lymphocyte pct 7.7 % [facility] Comment: Interpretive Data Percent cell count reference ranges are not reported, since discordance with absolute values may lead to misinterpretation of CBC data. Current Interpretive Data was last revised on 2017. Monocyte pct 4.4 % [facility] Comment: Interpretive Data Percent cell count reference ranges are not reported, since discordance with absolute values may lead to misinterpretation of CBC data. Current Interpretive Data was last revised on 2017. Eosinophil pct 0.1 % [facility] Comment: Interpretive Data Percent cell count reference ranges are not reported, since discordance with absolute values may lead to misinterpretation of CBC data. Current Interpretive Data was last revised on 2017. Basophil pct 0.3 % [facility] Comment: Interpretive Data Percent cell count reference ranges are not reported, since discordance with absolute values may lead to misinterpretation of CBC data. Current Interpretive Data was last revised on 2017. Blood 10/26/2024 2:55 AM CDT 10/26/2024 3:32 AM CDT Barbara Collins MD LAB BLO OD ORDERABLES Final Result [facility] [address] [facility] Department [place] [address] * (ABNORMAL) CBC with auto differential (10/26/2024 2:55 AM CDT) WBC 28.2(H) 3.8 - 9.9 K/cumm Hgb 9.7(L) 13.0 - 17.5 g/dL [facility] Hct 30.2(L) 38.9 - 50.3 % [facility] Plt 414(H) 150 - 400 K/cumm [facility] MPV 9.7 9.1 - 12.3 fL [facility] RBC 3.22(L) 4.30 - 5.80 M/cumm [facility] MCV 93.8 81.3 - 96.4 fL [facility] MCH 30.1 27.1 - 33.3 pg [facility] MCHC 32.1(L) 32.3 - 35.7 g/dL [facility] RDW CV 15.5(H) 11.1 - 14.9 % [facility] RDW SD 52.6(H) 35.7 - 48.1 fL [facility] NRBC abs 0.02(H) 0.00 - 0.01 K/cumm [facility] Blood 10/26/2024 2:55 AM CDT 10/26/2024 3:32 AM CDT Barbara Collins MD LAB BLO OD ORDERABLES Final Result [facility] [address] [facility] Department [place] [address] * (ABNORMAL) Basic metabolic panel (10/26/2024 2:55 AM CDT) Sodium 139 135 - 145 mmol/L Potassium, pl 4.7 3.3 - 4.9 mmol/L [facility] Chloride 98 97 - 110 mmol/L [facility] CO2 28 22 - 32 mmol/L [facility] Anion gap 13 2 - 15 mmol/L [facility] BUN 79(H) 6 - 25 mg/dL [facility] Creatinine 5.97(H) 0.80 - 1.30 mg/dL [facility] Glucose 107 70 - 199 mg/dL [facility] Comment: Interpretive Data Fasting glucose >/= 126 [...] 2022. Calcium 9.1 8.5 - 10.3 mg/dL [facility] Blood 10/26/2024 2:55 AM CDT 10/26/2024 3:31 AM CDT us Uday Jones MD LAB BLOOD ORDERABLES Final Result [facility] [address] [facility] Department [place] [address] * CT Chest Abdomen Pelvis WO Contrast [...] by Jonathan Romero M.D. T: Report ID: [id number] Reading Location: [place] [address] Procedure Note Jonathan Romero MD - 10/25/2024 [...] by Jonathan Romero M.D. T: Report ID: [id number] Reading Location: [place] [address] us Jah Vargas MD IM CT PROCEDURES [...] ORDERABLES F inal Result Performing Organization Address [facility] Co de Phone Number [facility] [address] [place] [address] * (ABNORMAL) Hepatic function panel (10/25/2024 1:04 PM CDT) Pathologist [facility] Bilirubin, total 0.4 0.1 - 1.2 mg/dL Bilirubin, direct 0.2 0.1 - 0.3 mg/dL [facility] Protein, pl 6.4(L) 6.5 - 8.5 g/dL [facility] Albumin 3.5 3.5 - 5.0 g/dL [facility] Alk phos 73 40 - 130 Units/L [facility] ALT 30 7 - 55 Units/L [facility] AST 23 10 - 50 Units/L [facility] Blood 10/25/2024 1:04 PM CDT 10/25/2024 1:13 PM CDT Narrative [facility] - 10/25/2024 1:36 PM CDT Baseline prior to apixaban initiation. Carlos Castro MD LAB BLOOD ORDERABLES F inal Result Performing Organization Address [facility] [facility] Co de Phone Number YUNIOR[address] [place] [address] * XR Chest 1 View (10/25/2024 12:25 [...] signed by Oliverio GREENE T: Report ID: [id number] Reading Location: [id number] Procedure Note Oliverio Steinberg MD - 10/25/2024 [...] Oliverio Steinberg M.D. LB T: Report ID: [id number] Reading Location: [id number] Lucius Jauregui MD IMG XR PROCEDURES Final Result * INSERT TUNNELED CV CATH W/PORT OR PUMP >[id number] (10/25/2024 11:38 AM CDT) Anatomical Region Laterality [...] MD LAB BLOOD ORDERABLES Final Resul t [facility] [address] [facility] Department of Laboratories [place], [place] [id number] * Heparin anti factor Xa activity (10/25/2024 [...] NP LAB BLOOD ORDERABLES Cherise l Result Performing Organization Address City/[facility] Co de Phone Number PAVEL [address] [place] [address] * (ABNORMAL) eGFR (10/25/2024 3:26 AM CDT) [...] ORDERABLES Fin al Result Performing Organization Address City/[facility]/ZIP Co de Phone Number PAVEL [address] [place] [address] * (ABNORMAL) Differential, auto (10/25/2024 3:26 AM CDT) Pathologist [facility] Neutrophil abs 24.9(H) 1.5 - 6.5 K/cumm Imm gran abs 2.8(H) 0.0 - 0.1 K/cumm [facility] Lymphocyte abs 1.8 0.8 - 3.3 K/cumm [facility] Monocyte abs 1.0(H) 0.2 - 0.8 K/cumm [facility] Eosinophil abs 0.0 0.0 - 0.5 K/cumm [facility] Basophil abs 0.2(H) 0.0 - 0.1 K/cumm [facility] Neutrophil pct 81.3 % [facility] Comment: Interpretive Data Percent cell count reference ranges are not reported, since discordance with absolute values may lead to misinterpretation of CBC data. Current Interpretive Data was last revised on 2017. Imm gran pct 9.1 % [facility] Comment: Interpretive Data Percent cell count reference ranges are not reported, since discordance with absolute values may lead to misinterpretation of CBC data. Current Interpretive Data was last revised on 2017. Lymphocyte pct 5.8 % [facility] Comment: Interpretive Data Percent cell count reference ranges are not reported, since discordance with absolute values may lead to misinterpretation of CBC data. Current Interpretive Data was last revised on 2017. Monocyte pct 3.1 % [facility] Comment: Interpretive Data Percent cell count reference ranges are not reported, since discordance with absolute values may lead to misinterpretation of CBC data. Current Interpretive Data was last revised on 2017. Eosinophil pct 0.1 % [facility] Comment: Interpretive Data Percent cell count reference ranges are not reported, since discordance with absolute values may lead to misinterpretation of CBC data. Current Interpretive Data was last revised on 2017. Basophil pct 0.6 % [facility] Comment: Interpretive Data Percent cell count reference ranges are not reported, since discordance with absolute values may lead to misinterpretation of CBC data. Current Interpretive Data was last revised on 2017. Blood 10/25/2024 3:26 AM CDT 10/25/2024 3:38 AM CDT Matteo Julian MD LAB BLOOD ORDERABLES Cherise l Result Performing Organization Address [facility] Co de Phone Number [address] [address] * (ABNORMAL) CBC with auto differential (10/25/2024 3:26 AM CDT) [facility] WBC 30.5(H) 3.8 - 9.9 K/cumm Hgb 10.0(L) 13.0 - 17.5 g/dL [facility] Hct 32.0(L) 38.9 - 50.3 % [facility] Plt 285 150 - 400 K/cumm [facility] MPV 9.9 9.1 - 12.3 fL [facility] RBC 3.35(L) 4.30 - 5.80 M/cumm [facility] MCV 95.5 81.3 - 96.4 fL [facility] MCH 29.9 27.1 - 33.3 pg [facility] MCHC 31.3(L) 32.3 - 35.7 g/dL [facility] RDW CV 15.6(H) 11.1 - 14.9 % [facility] RDW SD 53.7(H) 35.7 - 48.1 fL [facility] NRBC abs 0.02(H) 0.00 - 0.01 K/cumm [facility] Blood 10/25/2024 3:26 AM CDT 10/25/2024 3:38 AM CDT Barbara Collins MD LAB BLO OD ORDERABLES Final Result Performing Organization Address [facility] Co de Phone Number [facility] [address] [facility] [place] [address] * (ABNORMAL) Basic metabolic panel (10/25/2024 3:26 AM CDT) [facility] Sodium 137 135 - 145 mmol/L Potassium, pl 5.6(H) 3.3 - 4.9 mmol/L [facility] Comment:Hemolyzed; Potassium value may be falsely elevated by as much as 1.0 mmol/L. Suggest redraw and reanalysis. Chloride 100 97 - 110 mmol/L [facility] CO2 20(L) 22 - 32 mmol/L [facility] Anion gap 17(H) 2 - 15 mmol/L [facility] BUN 78(H) 6 - 25 mg/dL [facility] Creatinine 5.26(H) 0.80 - 1.30 mg/dL [facility] Glucose 128 70 - 199 mg/dL [facility] Comment: Interpretive Data Fasting glucose >/= 126 [...] 2022. Calcium 8.4(L) 8.5 - 10.3 mg/dL [facility] Blood 10/25/2024 3:26 AM CDT 10/25/2024 3:37 AM CDT Carmen Walter MD LAB BLOOD ORDERABLES Fin al Result [facility] [address] [facility] Department [place] [address] * Heparin anti factor Xa activity (10/24/2024 11:39 PM CDT) [facility] Anti Factor Xa 0.68 IUnits/mL Comment: Interpretive [...] LAB BLOOD ORDERABLE S Final Result PAVEL [address] [facility] [place] [address] * (ABNORMAL) Heparin anti factor Xa activity (10/24/2024 2:55 PM CDT) Anti Factor Xa >1.10(C) IUnits/mL Comment: Critical value. Results called to and read back by: Critical Result called to and read back by [id number], DATE: 2024-10-24 15:38:22 BY: [id number] Interpretive Data Enoxaparin therapeutic range (peak): VTE [...] ORDERABLE S Final Result Performing Organization Address [facility] de Phone Number Y[address] [address] * Hepatitis B core antibody, total Blood (10/24/2024 2:55 PM CDT) Pathologist [facility] Hep B core IgG/IgM Nonreactive Nonreactive Comment:Testing performed by : [facility], [address] [place] [address]., [id number] Blood 10/24/2024 2:55 PM CDT 10/24/2024 5:23 PM CDT Milana Maloney MD LAB MICROBIOLOGY - GENERAL ORDERABLES Final Result Performing Organization Address [facility] de Phone Number [address] [address] * Hepatitis B (HBV) DNA PCR, quantitative Blood (10/24/2024 2:55 PM CDT) [facility] HBV DNA Result Not Detected [facility] Comment: The quantifiable range of this assay is 10 IU/mL to 1,000,000,000 IU/mL (1.00 log IU/mL to 9.00 log IU/mL). Testing was performed by the [employer] [id number] HBV Test version 2.0 ([employer] Testing performed at [facility] Current Interpretive Data was last revised on 2021. Testing performed by: [facility], [address] [place] [address]., [id number] Blood 10/24/2024 2:55 PM CDT 10/24/2024 7:39 PM CDT Milana Maloney MD LAB MICROBIOLOGY - GENERAL ORDERABLES Final Result Performing Organization Address City/[facility] Co de Phone Number [address] [address] [facility] * Hepatitis B Surface Antigen Blood (10/24/2024 2:55 PM CDT) Pathologist [facility] HepBsAg Nonreactive Nonreactive Blood 10/24/2024 2:55 PM CDT 10/24/2024 3:10 PM CDT Milana Maloney MD LAB MICROBIOLOGY - GENERAL ORDERABLES Final Result Performing Organization Address [facility] Phone Number [address] [address] * ECG 12 lead (10/24/2024 8:10 AM CDT) [facility] Ventricular Rate EKG/Min [address] [facility] QRS-Interval (MSEC) 152 ms [facility] QT-Interval (MSEC) 420 ms [facility] QTc 493 ms [facility] R [place] -86 degrees [facility] T [place] 85 degrees [facility] Diagnosis 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 ([id number]) on 10/24/2024 2:50:52 PM [facility] 10/24/2024 8:10 AM CDT 10/24/2024 2:50 PM CDT us August Roger MD ECG ORDERABLES Final R esult Performing Organization Address [facility] Co de Phone Number [facility] * (ABNORMAL) eGFR (10/24/2024 5:46 AM CDT) Pathologist [facility] eGFR 9(L) >=60 mL/min/1. 73 m2 Comment: [...] MD LAB BLOOD ORDERABLES Fin al Result YUNIORVXT [address] [facility] Department of Laboratories [place], [place] [id number] * Heparin anti factor Xa activity (10/24/2024 5:46 AM CDT) Pathologist [facility] Anti Factor Xa 0.71 IUnits/mL Comment: Ref [...] MD LAB BLOOD ORDERABLE S Final Result [place] [id number] [facility] [place] [address] * (ABNORMAL) CBC with auto differential (10/24/2024 5:46 AM CDT) Pathologist [facility] WBC 40.6(H) 3.8 - 9.9 K/cumm Hgb 9.7(L) 13.0 - 17.5 g/dL [facility] Hct 31.2(L) 38.9 - 50.3 % [facility] Plt 453(H) 150 - 400 K/cumm [facility] MPV 9.6 9.1 - 12.3 fL [facility] RBC 3.33(L) 4.30 - 5.80 M/cumm [facility] MCV 93.7 81.3 - 96.4 fL [facility] MCH 29.1 27.1 - 33.3 pg [facility] MCHC 31.1(L) 32.3 - 35.7 g/dL [facility] RDW CV 15.5(H) 11.1 - 14.9 % [facility] RDW SD 52.6(H) 35.7 - 48.1 fL [facility] NRBC abs 0.04(H) 0.00 - 0.01 K/cumm [facility] Blood 10/24/2024 5:46 AM CDT 10/24/2024 6:08 AM CDT us Barbara Collins MD LAB BLO OD ORDERABLES Final Result PAV[facility] [address] [facility] Department [place] [address] * (ABNORMAL) Manual Differential (10/24/2024 5:46 AM CDT) Differential Manual Cells Counted 100 [facility] Neutrophil abs 35.3(H) 1.5 - 6.5 K/cumm [facility] Imm gran abs 2.0(H) 0.0 - 0.1 K/cumm [facility] Lymphocyte abs 2.0 0.8 - 3.3 K/cumm [facility] Monocyte abs 1.2(H) 0.2 - 0.8 K/cumm [facility] Neutrophil pct 87.0 % [facility] Comment: Interpretive Data Percent cell count reference ranges are not reported, since discordance with absolute values may lead to misinterpretation of CBC data. Current Interpretive Data was last revised on 2017. Lymphocyte pct 5.0 % [facility] Comment: Interpretive Data Percent cell count reference ranges are not reported, since discordance with absolute values may lead to misinterpretation of CBC data. Current Interpretive Data was last revised on 2017. Monocyte pct 3.0 % [facility] Comment: Interpretive Data Percent cell count reference ranges are not reported, since discordance with absolute values may lead to misinterpretation of CBC data. Current Interpretive Data was last revised on 2017. Metamyelocyte pct 5.0(H) 0.0 - 0.0 % [facility] RBC morphology Present(A) [facility] Hypochromasia 3-7/HPF(A) [facility] Poikilocytosis Moderate(A) [facility] Macrocytes 3-7/HPF(A) [facility] Elliptocytes 8-15/HPF(A) [facility] Platelet estimate Automated Count Confirmed [facility] Blood 10/24/2024 5:46 AM CDT 10/24/2024 6:08 AM CDT us Matteo Julian MD LAB BLOOD ORDERABLES Cherise l Result Performing Organization Address City/[facility]/ZIP Co de Phone Number [address] [address] * (ABNORMAL) Basic metabolic panel (10/24/2024 5:46 AM CDT) [facility] Sodium 141 135 - 145 mmol/L Potassium, pl 4.9 3.3 - 4.9 mmol/L [facility] Chloride 99 97 - 110 mmol/L [facility] CO2 26 22 - 32 mmol/L [facility] Anion gap 16(H) 2 - 15 mmol/L [facility] BUN 102(H) 6 - 25 mg/dL [facility] Creatinine 6.14(H) 0.80 - 1.30 mg/dL [facility] Glucose 122 70 - 199 mg/dL [facility] Comment: Interpretive Data Fasting glucose >/= 126 [...] 2022. Calcium 9.2 8.5 - 10.3 mg/dL [facility] Blood 10/24/2024 5:46 AM CDT 10/24/2024 6:08 AM CDT Carmen Walter MD LAB BLOOD ORDERABLES Fin al Result Performing Organization Address City/[facility]/ZIP Co de Phone Number [address] [place] [address] * Heparin anti factor Xa activity (10/23/2024 5:11 PM CDT) [facility] Anti Factor Xa 0.62 IUnits/mL Comment: Interpretive [...] ORDERABLES Final R esult Performing Organization Address City/[facility] Co de Phone Number [address] [place] [address] * (ABNORMAL) BUN (10/23/2024 2:56 PM CDT) [facility] BUN 93(H) 6 - 25 mg/dL Blood 10/23/2024 2:56 PM CDT 10/23/2024 3:09 PM CDT Narrative [facility] - 10/23/2024 3:25 PM CDT Pre-Dialysis Carmen Walter MD LAB BLOOD ORDERABLES Fin al Result Performing Organization Address City/[facility]/ZIP Co de Phone Number [address] [place] [address] * Blood culture Blood (10/23/2024 10:33 AM CDT) Report Final Report: No growth Comment:Testing performed by : [facility], [address] [facility], [place]., [address] Blood 10/23/2024 10:3 3 AM CDT 10/23/2024 4:02 PM CDT Dong ROSADO - 10/28/2024 7:00 AM CDT From [...] performance characteristics have been verified by the [facility]. For questions about this culture, contact the Microbiology Laboratory at [phone]. Interpretive data was last revised on 24. Milana Maloney MD LAB MICROBIOLOGY - GENERAL ORDERABLES Final Result [facility]AV[facility] [address] [facility] [place] [address] * Heparin anti factor Xa [...] Angulo MD LAB BLOOD ORDERABLES Final Result [facility] [address] [facility] Department [place] [address] * Blood culture Blood (10/23/2024 10:26 AM CDT) Report Final Report: No growth Comment:Testing performed by : [facility], [address] [facility], [place]., [address] Blood 10/23/2024 10:2 6 AM CDT 10/23/2024 4:02 PM CDT Narrative PAVEL - 10/28/2024 7:00 AM CDT 1. Blood [...] performance characteristics have been verified by the [facility]. For questions about this culture, contact the Microbiology Laboratory at [phone]. Interpretive data was last revised on 24. Milana Maloney MD LAB MICROBIOLOGY - GENERAL ORDERABLES Final Result [facility] [facility] Department [place] [address] * (ABNORMAL) eGFR (10/23/2024 4:53 AM CDT) [...] of Race in Diagnosing Kidney Disease, JASN 2021). The CKD-EPI equation should not be used for patients with unstable renal function and has not been validated in children and those over 70. Current interpretive data was last reviewed 2021. Blood 10/23/2024 4:53 AM CDT 10/23/2024 5:05 AM CDT us Orlando Mars Mclean NP LAB BLOOD ORDERABLES Fi nal Result [facility] [address] [facility] Department [place] [address] * (ABNORMAL) Differential, auto (10/23/2024 4:53 AM CDT) Neutrophil abs 32.2(H) 1.5 - 6.5 K/cumm Imm gran abs 4.2(H) 0.0 - 0.1 K/cumm [facility] Lymphocyte abs 1.6 0.8 - 3.3 K/cumm [facility] Monocyte abs 1.0(H) 0.2 - 0.8 K/cumm [facility] Eosinophil abs 0.0 0.0 - 0.5 K/cumm [facility] Basophil abs 0.0 0.0 - 0.1 K/cumm [facility] Neutrophil pct 82.4 % [facility] Comment: Interpretive Data Percent cell count reference ranges are not reported, since discordance with absolute values may lead to misinterpretation of CBC data. Current Interpretive Data was last revised on 2017. Imm gran pct 10.8 % [facility] Comment: Interpretive Data Percent cell count reference ranges are not reported, since discordance with absolute values may lead to misinterpretation of CBC data. Current Interpretive Data was last revised on 2017. Lymphocyte pct 4.2 % [facility] Comment: Interpretive Data Percent cell count reference ranges are not reported, since discordance with absolute values may lead to misinterpretation of CBC data. Current Interpretive Data was last revised on 2017. Monocyte pct 2.6 % [facility] Comment: Interpretive Data Percent cell count reference ranges are not reported, since discordance with absolute values may lead to misinterpretation of CBC data. Current Interpretive Data was last revised on 2017. Eosinophil pct 0.0 % [facility] Comment: Interpretive Data Percent cell count reference ranges are not reported, since discordance with absolute values may lead to misinterpretation of CBC data. Current Interpretive Data was last revised on 2017. Basophil pct 0.0 % [facility] Comment: Interpretive Data Percent cell count reference ranges are not reported, since discordance with absolute values may lead to misinterpretation of CBC data. Current Interpretive Data was last revised on 2017. Blood 10/23/2024 4:53 AM CDT 10/23/2024 5:05 AM CDT us Matteo Julian MD LAB BLOOD ORDERABLES Cherise l Result Performing Organization Address [facility] Co de Phone Number PAVEL [address] [place] [address] * Heparin anti factor Xa activity (10/23/2024 [...] ORDERABLES Fi nal Result Performing Organization Address [facility]/ZIP Co de Phone Number YUNIOR[address] [place] [address] * (ABNORMAL) CBC with auto differential (10/23/2024 4:53 AM CDT) [facility] WBC 39.1(H) 3.8 - 9.9 K/cumm Hgb 9.5(L) 13.0 - 17.5 g/dL [facility] Hct 29.5(L) 38.9 - 50.3 % [facility] Plt 436(H) 150 - 400 K/cumm [facility] MPV 9.3 9.1 - 12.3 fL [facility] RBC 3.20(L) 4.30 - 5.80 M/cumm [facility] MCV 92.2 81.3 - 96.4 fL [facility] MCH 29.7 27.1 - 33.3 pg [facility] MCHC 32.2(L) 32.3 - 35.7 g/dL [facility] RDW CV 15.2(H) 11.1 - 14.9 % [facility] RDW SD 50.6(H) 35.7 - 48.1 fL [facility] NRBC abs 0.05(H) 0.00 - 0.01 K/cumm [facility] Blood 10/23/2024 4:53 AM CDT 10/23/2024 5:05 AM CDT us Barbara Collins MD LAB BLO OD ORDERABLES Edited Result - Final Performing Organization Address City/[facility]/ZIP Co de Phone Number [address] [place] [address] * Manual Differential (10/23/2024 4:53 AM CDT) [facility] Differential Auto RBC morphology Consistent with RBC Indicies [facility] Platelet estimate Automated Count Confirmed [facility] Blood 10/23/2024 4:53 AM CDT 10/23/2024 5:05 AM CDT us Matteo Julian MD LAB BLOOD ORDERABLES Cherise l Result CERNER [address] [address] * (ABNORMAL) Phosphorus (10/23/2024 4:53 AM CDT) [facility] Phosphorus, pl 5.0(H) 2.3 - 4.5 mg/dL Blood 10/23/2024 4:53 AM CDT 10/23/2024 5:05 AM CDT Orlando Mclean BEHAVIORAL MODIFICATION ASSISTANT LAB BLOOD ORDERABLES Fi nal Result Performing Organization Address [facility]/ZIP Co de Phone Number [address] [address] * Magnesium (10/23/2024 4:53 AM CDT) [facility] Magnesium 1.9 1.4 - 2.5 mg/dL Blood 10/23/2024 4:53 AM CDT 10/23/2024 5:05 AM CDT Orlando Mclean BEHAVIORAL MODIFICATION ASSISTANT LAB BLOOD ORDERABLES Fi nal Result Performing Organization Address [facility] Co de Phone Number [address] [address] * (ABNORMAL) Comprehensive metabolic panel (10/23/2024 4:53 AM CDT) [facility] Sodium 140 135 - 145 mmol/L Potassium, pl 4.5 3.3 - 4.9 mmol/L [facility] Chloride 100 97 - 110 mmol/L [facility] CO2 24 22 - 32 mmol/L [facility] Anion gap 16(H) 2 - 15 mmol/L [facility] BUN 80(H) 6 - 25 mg/dL [facility] Creatinine 5.27(H) 0.80 - 1.30 mg/dL [facility] Glucose 140 70 - 199 mg/dL [facility] Comment: Interpretive Data Fasting glucose >/= 126 [...] 2022. Calcium 8.5 8.5 - 10.3 mg/dL [facility] Bilirubin, total 0.3 0.1 - 1.2 mg/dL [facility] Protein, pl 5.8(L) 6.5 - 8.5 g/dL [facility] Albumin 3.0(L) 3.5 - 5.0 g/dL [facility] Alk phos 78 40 - 130 Units/L [facility] ALT 57(H) 7 - 55 Units/L [facility] AST 33 10 - 50 Units/L [facility] Blood 10/23/2024 4:53 AM CDT 10/23/2024 5:05 AM CDT Orlando Mclean NP LAB BLOOD ORDERABLES nal Result [facility] [address] [facility] Department [place] [address] * US Vein Mapping Duplex Upper Extremity Bilateral (10/22/2024 5:21 PM CDT) Anatomical Region Laterality Modality Vascular Bilateral Ultrasound 10/22/2024 4:17 PM CDT Narrative 10/25/2024 11:32 AM CDT Upper Extremity Vein Mapping Report Patient Name: LAMIN BETTS Account #: : [id number] ([id number]) Gender: M Study Date: 10/22/2024 04:17:45 PM Accession #: Air Tucker: Yocasta Hebert Quality: Adequate Ref Provider: PROCEDURES: [...] Study Date: 10/22/2024 04:17:45 PM Accession #: Air Tucker: Yocasta Hebert Quality: Adequate Ref Provider: PROCEDURES: [...] Lucius Jauregui MD 10/24/2024 7:41:03 AM CDT Suhalux Maloney MD IMG US PROCEDURES F inal [...] Thomas Simons M.D. RW T: Report ID: [id number] Reading Location: [id number] Procedure Note Thomas Simons MD - 10/22/2024 [...] Thomas Simons M.D. RW T: Report ID: [id number] Reading Location: [place] [address] Orlando Mclean NP IMG XR PROCEDURES Final Result * Critical Care (10/22/2024 3:18 PM CDT) Narrative Ricardo Hu MD - 10/22/2024 3:18 PM CDT Ricardo Hu MD 10/23/2024 9:59 AM Critical Care Performed by: Orlando Mclean NP Authorized by: Orlando Mclean NP CRITICAL CARE: Team: [facility] Shift: AM Level of Billing: Critical Care [...] plan with the ICU team and other medical/protection consultant staff, making frequent assessments and decisions [...] IN CLINIC/BEDSIDE ORDER SARAH Final Result * CA INSJ NON-TUNNELED CENTRAL VENOUS CATH AGE 5 YR/> (10/22/2024 3:15 PM CDT) Narrative Ricardo Hu MD - 10/22/2024 3:15 PM CDT Ricardo Hu MD 10/23/2024 9:59 AM Central Line Insertion Date/Time: 10/22/2024 3:15 PM Performed by: Orlando Mclean NP Authorized by: Ricardo Hu MD [place] Protocol: RN Notified of Procedure: yes Informed [...] Catheter type: Dialysis catheter Catheter size: 13 nepali. Needle inserted, vein idenitified then guidewire inserted [...] by Orlando Doherty M.D. T: Report ID: [id number] Reading Location: [id number] Procedure Note Orlando Doherty, DO - 10/22/2024 [...] by Orlando Doherty M.D. T: Report ID: [id number] Reading Location: [id number] us Milana Maloney MD IMG XR PROCEDURES F inal Result * (ABNORMAL) BUN (10/22/2024 11:48 AM CDT) BUN 100(H) 6 - 25 mg/dL Blood 10/22/2024 11:4 8 AM CDT 10/22/2024 12:38 PM CDT Narrative [facility] - 10/22/2024 1:07 PM CDT Pre-Dialysis us Uday Jones MD LAB BLOOD ORDERABLES Final Result [facility] [address] [facility] Department [place] [address] * (ABNORMAL) eGFR (10/22/2024 6:32 [...] MD LAB BLOOD ORDERABLES Final Result [facility] [address] [facility] [place] [address] * Heparin anti factor Xa activity (10/22/2024 6:32 AM CDT) Anti Factor Xa <0.10 IUnits/mL Comment: Patient not on heparin at time of collection per [id number] (RN). 10/22/24 at 0845 by [id number]. Interpretive Data Enoxaparin therapeutic range (peak): VTE [...] ORDERABLES Cherise l Result Performing Organization Address City/[facility]/ZIP Co de Phone Number [facility] [address] [place] [address] * (ABNORMAL) CBC with auto differential (10/22/2024 6:32 AM CDT) Pathologist [facility] WBC 36.2(H) 3.8 - 9.9 K/cumm Hgb 10.5(L) 13.0 - 17.5 g/dL [facility] Hct 34.0(L) 38.9 - 50.3 % [facility] Plt 514(H) 150 - 400 K/cumm [facility] MPV 9.4 9.1 - 12.3 fL [facility] RBC 3.63(L) 4.30 - 5.80 M/cumm [facility] MCV 93.7 81.3 - 96.4 fL [facility] MCH 28.9 27.1 - 33.3 pg [facility] MCHC 30.9(L) 32.3 - 35.7 g/dL [facility] RDW CV 15.3(H) 11.1 - 14.9 % [facility] RDW SD 52.9(H) 35.7 - 48.1 fL [facility] NRBC abs 0.16(H) 0.00 - 0.01 K/cumm [facility] Blood 10/22/2024 6:32 AM CDT 10/22/2024 7:06 AM CDT Barbara Collins MD LAB BLO OD ORDERABLES Edited Result - Final [facility] [address] [place], [place] [id number] * (ABNORMAL) Manual Differential (10/22/2024 6:32 AM CDT) Differential Manual Cells Counted 100 [facility] Neutrophil abs 29.7(H) 1.5 - 6.5 K/cumm [facility] Imm gran abs 4.0(H) 0.0 - 0.1 K/cumm [facility] Lymphocyte abs 2.5 0.8 - 3.3 K/cumm [facility] Monocyte abs 0.0(L) 0.2 - 0.8 K/cumm [facility] Neutrophil pct 82.0 % [facility] Comment: Interpretive Data Percent cell count reference ranges are not reported, since discordance with absolute values may lead to misinterpretation of CBC data. Current Interpretive Data was last revised on 2017. Lymphocyte pct 4.0 % [facility] Comment: Interpretive Data Percent cell count reference ranges are not reported, since discordance with absolute values may lead to misinterpretation of CBC data. Current Interpretive Data was last revised on 2017. Metamyelocyte pct 11.0(H) 0.0 - 0.0 % [facility] Variant lymph pct 3.0(H) 0.0 - 0.0 % [facility] RBC morphology Present(A) [facility] Hypochromasia 8-15/HPF(A) [facility] Anisocytosis Slight(A) [facility] Microcytes 8-15/HPF(A) [facility] Elliptocytes 3-7/HPF(A) [facility] Platelet estimate Automated Count Confirmed [facility] Blood 10/22/2024 6:32 AM CDT 10/22/2024 7:06 AM CDT us Matteo Julian MD LAB BLOOD ORDERABLES Cherise l Result [facility] [address] [facility] Department [place] [address] * (ABNORMAL) Basic metabolic panel (10/22/2024 6:32 AM CDT) Sodium 141 135 - 145 mmol/L Potassium, pl 4.4 3.3 - 4.9 mmol/L [facility] Chloride 98 97 - 110 mmol/L [facility] CO2 25 22 - 32 mmol/L [facility] Anion gap 18(H) 2 - 15 mmol/L [facility] BUN 110(H) 6 - 25 mg/dL [facility] Creatinine 6.30(H) 0.80 - 1.30 mg/dL [facility] Glucose 164 70 - 199 mg/dL [facility] Comment: Interpretive Data Fasting glucose >/= 126 [...] 2022. Calcium 9.3 8.5 - 10.3 mg/dL [facility] Blood 10/22/2024 6:32 AM CDT 10/22/2024 7:06 AM CDT Uday Jones MD LAB BLOOD ORDERABLES Final Result [facility] [address] [facility] Department [place] [address] * ECG 12 lead (10/22/2024 12:45 AM CDT) Ventricular Rate EKG/Min 76 BPM [facility] QRS-Interval (MSEC) 158 ms [facility] QT-Interval (MSEC) 450 ms [facility] QTc 506 ms [facility] R [place] -80 degrees [facility] T [place] 86 degrees [facility] Diagnosis Atrial fibrillation Right bundle branch block Left anterior fascicular block Bifascicular block Abnormal ECG When compared with ECG of 19-OCT-2024 12:28, Vent. rate has decreased BY 46 BPM Right bundle branch block has replaced Non-specific intra-ventricul ar conduction block Confirmed by ASHLEY WYNNE M.D. ([id number]) on 10/23/2024 9:23:45 AM [facility] 10/22/2024 12:4 5 AM CDT 10/23/2024 9:23 AM CDT Michael Tabernero Rufin BEHAVIORAL MODIFICATION ASSISTANT ECG ORDERABLES Final Re sult [facility] * (ABNORMAL) Lipid panel (10/21/2024 6:34 PM [...] Circulation 2004;110:227 3. Zia Vela et al. CAROLNIA Cardiol. 2020 December 01;5(5):540-548. doi: 10.1001/[email or web address].2020.0013 Current [...] 6:34 PM CDT 10/21/2024 6:54 PM CDT Milana Maloney MD LAB BLOOD ORDERABLE S Final Result [facility] [address] [facility] Department [place] [address] * INSERT TUNNELED CV CATH W/PORT OR PUMP >[id number] (10/21/2024 10:01 AM CDT) Anatomical Region Laterality [...] MD LAB BLOOD ORDERABLES Cherise l Result YUNIORIBF [address] [facility] Department [place] [address] * Heparin anti factor Xa [...] MD LAB BLOOD ORDERABLES Cherise still Result [place] [id number] [facility] Department [place] [address] * (ABNORMAL) CBC with auto differential (10/21/2024 6:44 AM CDT) WBC 32.5(H) 3.8 - 9.9 K/cumm Hgb 9.6(L) 13.0 - 17.5 g/dL [facility] Hct 29.3(L) 38.9 - 50.3 % [facility] Plt 461(H) 150 - 400 K/cumm [facility] MPV 9.3 9.1 - 12.3 fL [facility] RBC 3.28(L) 4.30 - 5.80 M/cumm [facility] MCV 89.3 81.3 - 96.4 fL [facility] MCH 29.3 27.1 - 33.3 pg [facility] MCHC 32.8 32.3 - 35.7 g/dL [facility] RDW CV 15.0(H) 11.1 - 14.9 % [facility] RDW SD 49.5(H) 35.7 - 48.1 fL [facility] NRBC abs 0.10(H) 0.00 - 0.01 K/cumm [facility] Blood 10/21/2024 6:44 AM CDT 10/21/2024 7:06 AM CDT Barbara Collins MD LAB BLO OD ORDERABLES Edited Result - Final [facility] [address] [facility] Department of Laboratories [place], [place] [id number] * (ABNORMAL) Manual Differential (10/21/2024 6:44 AM CDT) Differential Manual Cells Counted 100 [facility] Neutrophil abs 26.3(H) 1.5 - 6.5 K/cumm [facility] Imm gran abs 1.6(H) 0.0 - 0.1 K/cumm [facility] Lymphocyte abs 3.2 0.8 - 3.3 K/cumm [facility] Monocyte abs 1.3(H) 0.2 - 0.8 K/cumm [facility] Neutrophil pct 81.0 % [facility] Comment: Interpretive Data Percent cell count reference ranges are not reported, since discordance with absolute values may lead to misinterpretation of CBC data. Current Interpretive Data was last revised on 2017. Lymphocyte pct 10.0 % [facility] Comment: Interpretive Data Percent cell count reference ranges are not reported, since discordance with absolute values may lead to misinterpretation of CBC data. Current Interpretive Data was last revised on 2017. Monocyte pct 4.0 % [facility] Comment: Interpretive Data Percent cell count reference ranges are not reported, since discordance with absolute values may lead to misinterpretation of CBC data. Current Interpretive Data was last revised on 2017. Metamyelocyte pct 2.0(H) 0.0 - 0.0 % [facility] Myelocyte pct 3.0(H) 0.0 - 0.0 % [facility] RBC morphology Consistent with RBC Indicies [facility] Platelet estimate Automated Count Confirmed [facility] Blood 10/21/2024 6:44 AM CDT 10/21/2024 7:06 AM CDT Matteo Julian MD LAB BLOOD ORDERABLES Cherise still Result [facility] [address] [facility] Department [place] [address] * (ABNORMAL) Comprehensive metabolic panel (10/21/2024 6:44 AM CDT) Sodium 143 135 - 145 mmol/L Potassium, pl 4.4 3.3 - 4.9 mmol/L [facility] Chloride 100 97 - 110 mmol/L [facility] CO2 23 22 - 32 mmol/L [facility] Anion gap 20(H) 2 - 15 mmol/L [facility] BUN 122(H) 6 - 25 mg/dL [facility] Creatinine 6.64(H) 0.80 - 1.30 mg/dL [facility] Glucose 102 70 - 199 mg/dL [facility] Comment: Interpretive Data Fasting glucose >/= 126 [...] 2022. Calcium 9.4 8.5 - 10.3 mg/dL [facility] Bilirubin, total 0.2 0.1 - 1.2 mg/dL [facility] Protein, pl 6.2(L) 6.5 - 8.5 g/dL [facility] Albumin 3.3(L) 3.5 - 5.0 g/dL [facility] Alk phos 103 40 - 130 Units/L [facility] ALT 143(H) 7 - 55 Units/L [facility] AST 112(H) 10 - 50 Units/L [facility] Blood 10/21/2024 6:44 AM CDT 10/21/2024 7:11 AM CDT us Matteo Julian MD LAB BLOOD ORDERABLES Cherise l Result Performing Organization Address [facility] Co de Phone Number [address] [address] * (ABNORMAL) eGFR (10/20/2024 2:38 PM CDT) [...] was last reviewed 2021. Testing performed by: [facility], [address] [place] [address]., [address] Blood 10/20/2024 2:38 PM CDT 10/20/2024 2:57 PM CDT us August Roger MD LAB BLOOD ORDERABLES Fi nal Result Performing Organization Address City/[facility]/ZIP Co de Phone Number [address] [place] [address] * (ABNORMAL) Protime-INR (10/20/2024 2:38 PM CDT) PT 16.1(H) 12.0 - 14.6 sec Comment: Ref Range High Testing performed by: [address] [address] INR 1.3(H) 0.9 - 1.2 [facility] Comment: Ref Range High Interpretive data Oral anticoagulant therapeutic ranges: Venous thromboembolism prophylaxis or treatment: 2.0-3.0 CARDIOLOGY Standard range: 2.0-3.0 High-intensity range: 2.5-3.5 Refer to indication-specific guidelines for appropriate target ranges for prosthetic heart valve replacement. Current interpretive data was last revised on 2019. Testing performed by: [address] [address] Blood 10/20/2024 2:38 PM CDT 10/20/2024 2:57 PM CDT Narrative [facility] - 10/20/2024 3:12 PM CDT Baseline prior to apixaban initiation. August Roger MD LAB BLOOD ORDERABLES nal Result Performing Organization Address [facility] Co de Phone Number [address] [place] [address] * (ABNORMAL) Creatinine (10/20/2024 2:38 PM CDT) Creatinine 6.56(H) 0.80 - 1.30 mg/dL Comment:Testing performed by : [address] [address] Blood 10/20/2024 2:38 PM CDT 10/20/2024 2:57 PM CDT Narrative [facility] - 10/20/2024 3:26 PM CDT Baseline prior to apixaban initiation. August Rogre MD LAB BLOOD ORDERABLES nal Result Performing Organization Address City/[facility]/ZIP Co de Phone Number [address] [place] [address] * (ABNORMAL) Hepatic function panel (10/20/2024 2:38 PM CDT) [facility] Bilirubin, total 0.2 0.1 - 1.2 mg/dL Comment:Testing performed by : [address] [address] Bilirubin, direct <0.2 0.1 - 0.3 mg/dL [facility] Comment:Testing performed by : [address] [address] Protein, pl 7.0 6.5 - 8.5 g/dL [facility] Comment:Testing performed by : [address] [address] Albumin 3.5 3.5 - 5.0 g/dL [facility] Comment:Testing performed by : [address] [address] Alk phos 116 40 - 130 Units/L [facility] Comment:Testing performed by : [address] [address] ALT 119(H) 7 - 55 Units/L [facility] Comment:Testing performed by : [address] [address] AST 95(H) 10 - 50 Units/L [facility] Comment:Testing performed by : [address] [address] Blood 10/20/2024 2:38 PM CDT 10/20/2024 2:57 PM CDT Narrative [facility] - 10/20/2024 3:26 PM CDT Baseline prior to apixaban initiation. us August Roger MD LAB BLOOD ORDERABLES nal Result [facility] [address] [facility] Department [place] [address] * Hepatitis panel, acute Blood (10/20/2024 12:31 PM CDT) [facility] Hep A IgM Nonreactive Nonreactive Comment: Interpretive Data: If Hep A IgM Ab is reported as Equivocal, a new sample should be drawn in two weeks for testing. Current interpretive data was last revised on 19. Hep B core IgM Nonreactive Nonreactive [facility] Comment: Interpretive Data If HepB Core IgM Ab is reported as Equivocal, a new sample should be drawn in two weeks for testing. Current interpretive data was last revised on 19. Hep C Ab Nonreactive Nonreactive [facility] Comment: Antibodies to HCV not detected. Does [...] last revised on 2019. HepBsAg Nonreactive Nonreactive [facility] Blood 10/20/2024 12:3 1 PM CDT 10/20/2024 2:31 PM CDT Carmen Watler MD LAB MICROBIOLOGY - [facility] AL ORDERABLES Final Result [facility] [address] [facility] Department [place] [address] * Hepatitis B surface antibody (immune status) [...] 1 PM CDT 10/20/2024 2:31 PM CDT us Carmen Walter MD LAB MICROBIOLOGY - GENER AL ORDERABLES Final Result Performing Organization Address City/[facility]/ZIP Co de Phone Number [facility] [place] [address] * Heparin anti factor Xa activity (10/20/2024 9:04 AM CDT) Anti Factor Xa 0.54 IUnits/mL Comment: Interpretive [...] last revised on 2019. Testing performed by: [facility], [address] [place] [address]., [address] Blood 10/20/2024 9:04 AM CDT 10/20/2024 9:08 AM CDT us Matteo Julian MD LAB BLOOD ORDERABLES Cherise l Result [place] [id number] [facility] [address] [place], [place] [phone] * CT Chest WO Contrast (10/20/2024 6:34 [...] Winston Kinney M.D. RB: SABINO Report ID: [id number] Reading Location: [id number] Procedure Note Winston Kinney MD - 10/20/2024 [...] Winston Kinney M.D. RB: SABINO Report ID: [id number] Reading Location: [place] [address] us Rigoberto Croft MD IMG CT PROCEDURES [...] was last reviewed 2021. Testing performed by: [facility], [address] [place] [address]., [address] Blood 10/20/2024 3:52 AM CDT 10/20/2024 4:31 AM CDT us Matteo Julian MD LAB BLOOD ORDERABLES Cherise l Result [facility] [address] [facility] Department [place] [address] * (ABNORMAL) Differential, auto (10/20/2024 3:52 AM CDT) [facility] Neutrophil abs 21.5(H) 1.5 - 6.5 K/cumm Comment:Testing performed by : [address] [address] Imm gran abs 2.0(H) 0.0 - 0.1 K/cumm [facility] Comment:Testing performed by : [address] [address] Lymphocyte abs 1.3 0.8 - 3.3 K/cumm [facility] Comment:Testing performed by : [address], [place]., [address] Monocyte abs 0.8 0.2 - 0.8 K/cumm [facility] Comment:Testing performed by : [address] [address] Eosinophil abs 0.1 0.0 - 0.5 K/cumm [facility] Comment:Testing performed by : [address] [address] Basophil abs 0.2(H) 0.0 - 0.1 K/cumm [facility] Comment:Testing performed by : [address] [address] Neutrophil pct 83.3 % [facility] Comment: Interpretive Data Percent cell count reference ranges are not reported, since discordance with absolute values may lead to misinterpretation of CBC data. Current Interpretive Data was last revised on 2017. Testing performed by: [address] [address] Imm gran pct 7.7 % [facility] Comment: Interpretive Data Percent cell count reference ranges are not reported, since discordance with absolute values may lead to misinterpretation of CBC data. Current Interpretive Data was last revised on 2017. Testing performed by: [address] [address] Lymphocyte pct 5.1 % [facility] Comment: Interpretive Data Percent cell count reference ranges are not reported, since discordance with absolute values may lead to misinterpretation of CBC data. Current Interpretive Data was last revised on 2017. Testing performed by: [address] [address] Monocyte pct 3.0 % [facility] Comment: Interpretive Data Percent cell count reference ranges are not reported, since discordance with absolute values may lead to misinterpretation of CBC data. Current Interpretive Data was last revised on 2017. Testing performed by: [address] [address] Eosinophil pct 0.2 % [facility] Comment: Interpretive Data Percent cell count reference ranges are not reported, since discordance with absolute values may lead to misinterpretation of CBC data. Current Interpretive Data was last revised on 2017. Testing performed by: [address] [address] Basophil pct 0.7 % [facility] Comment: Interpretive Data Percent cell count reference ranges are not reported, since discordance with absolute values may lead to misinterpretation of CBC data. Current Interpretive Data was last revised on 2017. Testing performed by: [address] [address] Blood 10/20/2024 3:52 AM CDT 10/20/2024 4:33 AM CDT Honorio Mosqueda NP LAB BLOOD ORDERABLES Final Result [facility] [address] [facility] Department [place] [address] * Heparin anti factor Xa activity (10/20/2024 3:52 AM CDT) [facility] Anti Factor Xa 0.42 IUnits/mL Comment: Interpretive [...] last revised on 2019. Testing performed by: [address] [address] Blood 10/20/2024 3:52 AM CDT 10/20/2024 4:34 AM CDT us Matteo Julian MD LAB BLOOD ORDERABLES Cherise still Result [facility] Department of Laboratories [place], [place] [phone] * (ABNORMAL) CBC with auto differential (10/20/2024 3:52 AM CDT) [facility] WBC 25.8(H) 3.8 - 9.9 K/cumm Comment:Testing performed by : [address] [address] Hgb 9.4(L) 13.0 - 17.5 g/dL [facility] Comment:Testing performed by : [address] [address] Hct 29.0(L) 38.9 - 50.3 % [facility] Comment:Testing performed by : [address] [address] Plt 429(H) 150 - 400 K/cumm [facility] Comment:Testing performed by : [address] [address] MPV 9.4 9.1 - 12.3 fL [facility] Comment:Testing performed by : [address] [address] RBC 3.15(L) 4.30 - 5.80 M/cumm [facility] Comment:Testing performed by : [address] [address] MCV 92.1 81.3 - 96.4 fL [facility] Comment:Testing performed by : [address] [address] MCH 29.8 27.1 - 33.3 pg [facility] [place] Comment:Testing performed by : [address] [address] MCHC 32.4 32.3 - 35.7 g/dL [facility] Comment:Testing performed by : [address] [address] RDW CV 15.2(H) 11.1 - 14.9 % [facility] Comment:Testing performed by : [address] [address] RDW SD 50.7(H) 35.7 - 48.1 fL [facility] Comment:Testing performed by : [address] [address] NRBC abs 0.04(H) 0.00 - 0.01 K/cumm [facility] Comment:Testing performed by : [address] [address] Blood 10/20/2024 3:52 AM CDT 10/20/2024 4:33 AM CDT Barbara Collins MD LAB BLO OD ORDERABLES Final Result [facility] [address] [facility] Department of Laboratories [place], [place] [phone] * (ABNORMAL) CRP (acute phase) (10/20/2024 3:52 AM CDT) CRP 225.0(H) <=10.0 mg/L Comment:Testing performed by : [address] [address] Blood 10/20/2024 3:52 AM CDT 10/20/2024 4:31 AM CDT us Rigoberto Croft MD LAB BLOOD ORDERABLES F inal Result [facility] [address] [facility] Department [place] [address] * (ABNORMAL) Comprehensive metabolic panel (10/20/2024 3:52 AM CDT) Sodium 139 135 - 145 mmol/L Comment:Testing performed by : [address] [address] Potassium, pl 4.0 3.3 - 4.9 mmol/L [facility] Comment:Testing performed by : [address] [address] Chloride 98 97 - 110 mmol/L [facility] Comment:Testing performed by : [address] [address] CO2 22 22 - 32 mmol/L [facility] Comment:Testing performed by : [address] [address] Anion gap 19(H) 2 - 15 mmol/L [facility] Comment:Testing performed by : [address] [address] BUN 105(H) 6 - 25 mg/dL [facility] Comment:Testing performed by : [address] [address] Creatinine 6.35(H) 0.80 - 1.30 mg/dL [facility] Comment:Testing performed by : [address] [address] Glucose 172 70 - 199 mg/dL [facility] [...] was last revised 2022. Testing performed by: [facility], [address] [place] [address]., [address] Calcium 10.1 8.5 - 10.3 mg/dL PAVEL Comment:Testing performed by : [address] [address] Bilirubin, total 0.2 0.1 - 1.2 mg/dL PAVEL Comment:Testing performed by : [address] [address] Protein, pl 6.6 6.5 - 8.5 g/dL PAVEL Comment:Testing performed by : [address] [address] Albumin 3.2(L) 3.5 - 5.0 g/dL PAVEL Comment:Testing performed by : [address] [address] Alk phos 132(H) 40 - 130 Units/L PAVEL Comment:Testing performed by : [address] [address] ALT 91(H) 7 - 55 Units/L PAVEL Comment:Testing performed by : [address] [address] AST 105(H) 10 - 50 Units/L PAVEL Comment:Testing performed by : [address] [address] Blood 10/20/2024 3:52 AM CDT 10/20/2024 4:31 AM CDT us Matteo Julian MD LAB BLOOD ORDERABLES Cherise l Result PAVEL [address] [facility] Department [place] [address] * Heparin anti factor Xa [...] last revised on 2019. Testing performed by: [facility], [address] [place] [address]., [address] Blood 10/19/2024 7:33 PM CDT 10/19/2024 7:50 PM CDT us Matteo Julian MD LAB BLOOD ORDERABLES Cherise still Result [facility] [address] [facility] Department [place] [address] * Heparin anti factor Xa activity (10/19/2024 12:50 PM CDT) [facility] Signature Anti Factor Xa <0.10 IUnits/mL [...] last revised on 2019. Testing performed by: [address] [address] Blood 10/19/2024 12:5 0 PM CDT 10/19/2024 1:08 PM CDT Narrative PAVEL - 10/19/2024 1:55 PM CDT Baseline prior to heparin initiation Matteo Julian MD LAB BLOOD ORDERABLES Cherise l Result PAVEL [address] [facility] Department [place] [address] * (ABNORMAL) Protime-INR (10/19/2024 12:50 PM CDT) PT 15.6(H) 12.0 - 14.6 sec Comment: Ref Range High Testing performed by: [address] [address] INR 1.3(H) 0.9 - 1.2 PAVEL Comment: Ref Range High Interpretive data Oral anticoagulant therapeutic ranges: Venous thromboembolism prophylaxis or treatment: 2.0-3.0 CARDIOLOGY Standard range: 2.0-3.0 High-intensity range: 2.5-3.5 Refer to indication-specific guidelines for appropriate target ranges for prosthetic heart valve replacement. Current interpretive data was last revised on 2019. Testing performed by: [address] [address] Blood 10/19/2024 12:5 0 PM CDT 10/19/2024 1:07 PM CDT Narrative PAVEL - 10/19/2024 1:27 PM CDT Baseline prior to heparin initiation us Matteo Julian MD LAB BLOOD ORDERABLES Cherise l Result PAVEL [address] [facility] Department [place] [address] * ECG 12 lead (10/19/2024 12:28 PM CDT) Ventricular Rate EKG/Min [address] [facility] Atrial Rate 133 BPM [facility] QRS-Interval (MSEC) 156 ms [facility] QT-Interval (MSEC) 372 ms [facility] QTc 530 ms [facility] R [place] 270 degrees [facility] T [place] 75 degrees [facility] Diagnosis Atrial fibrillation with rapid ventricular response Left axis deviation Non-specific intra-ventricul ar conduction block Abnormal ECG Confirmed by LANDEN SEARS M.D. ([id number]) on 10/19/2024 4:58:38 PM [facility] 10/19/2024 12:2 8 PM CDT 10/19/2024 4:58 PM CDT Matteo Julian MD ECG ORDERABLES Final Res ult Performing Organization Address [facility]/ZIP Co de Phone Number [facility] * XR Chest 1 View (10/19/2024 8:40 [...] Jonathan Oneill M.D. KR: KEL Report ID: [id number] Reading Location: [place] [address] Procedure Note Jonathan Oneill MD - 10/19/2024 [...] Jonathan Oneill M.D. KR: KEL Report ID: [id number] Reading Location: [place] [address] Rigoberto Croft MD IMG XR PROCEDURES Cherise [...] was last reviewed 2021. Testing performed by: [address] [address] Blood 10/19/2024 4:05 AM CDT 10/19/2024 4:39 AM CDT us Matteo Julian MD LAB BLOOD ORDERABLES Cherise still Result PAVEL [address] [facility] Department [place] [address] * (ABNORMAL) Differential, auto (10/19/2024 4:05 AM CDT) Neutrophil abs 18.8(H) 1.5 - 6.5 K/cumm Comment:Testing performed by : [address] [address] Imm gran abs 1.0(H) 0.0 - 0.1 K/cumm PAVEL Comment:Testing performed by : [address] [address] Lymphocyte abs 0.9 0.8 - 3.3 K/cumm PAVEL Comment:Testing performed by : [address] [address] Monocyte abs 0.8 0.2 - 0.8 K/cumm PAVEL Comment:Testing performed by : [address] [address] Eosinophil abs 0.0 0.0 - 0.5 K/cumm PAVEL Comment:Testing performed by : [address] [address] Basophil abs 0.1 0.0 - 0.1 K/cumm PAVEL Comment:Testing performed by : [address] [place]., [address] Neutrophil pct 87.5 % [facility] Comment: Interpretive Data Percent cell count reference ranges are not reported, since discordance with absolute values may lead to misinterpretation of CBC data. Current Interpretive Data was last revised on 2017. Testing performed by: [address] [address] Imm gran pct 4.5 % [facility] Comment: Interpretive Data Percent cell count reference ranges are not reported, since discordance with absolute values may lead to misinterpretation of CBC data. Current Interpretive Data was last revised on 2017. Testing performed by: [address] [address] Lymphocyte pct 4.0 % [facility] Comment: Interpretive Data Percent cell count reference ranges are not reported, since discordance with absolute values may lead to misinterpretation of CBC data. Current Interpretive Data was last revised on 2017. Testing performed by: [address] [address] Monocyte pct 3.6 % [facility] Comment: Interpretive Data Percent cell count reference ranges are not reported, since discordance with absolute values may lead to misinterpretation of CBC data. Current Interpretive Data was last revised on 2017. Testing performed by: [address] [address] Eosinophil pct 0.1 % CERNER Comment: Interpretive Data Percent cell count reference ranges are not reported, since discordance with absolute values may lead to misinterpretation of CBC data. Current Interpretive Data was last revised on 2017. Testing performed by: [address] [address] Basophil pct 0.3 % [facility] Comment: Interpretive Data Percent cell count reference ranges are not reported, since discordance with absolute values may lead to misinterpretation of CBC data. Current Interpretive Data was last revised on 2017. Testing performed by: [address] [address] Blood 10/19/2024 4:05 AM CDT 10/19/2024 4:41 AM CDT us Honorio Mosqueda BEHAVIORAL MODIFICATION ASSISTANT LAB BLOOD ORDERABLES Final Result Performing Organization Address City/[facility] Co de Phone Number [address] [place] [address] * (ABNORMAL) Thyroid Function [place] (10/19/2024 4:05 AM CDT) Pathologist [facility] TSH 0.12(L) 0.30 - 4.20 mcIUnit/mL Comment:Testing performed by : [address] [address] Blood 10/19/2024 4:05 AM CDT 10/19/2024 4:39 AM CDT us Matteo Julian MD LAB BLOOD ORDERABLES Cherise l Result Performing Organization Address [facility] Co de Phone Number [address] [place] [address] * (ABNORMAL) CBC with auto differential (10/19/2024 4:05 AM CDT) [facility] WBC 21.5(H) 3.8 - 9.9 K/cumm Comment:Testing performed by : [address] [address] Hgb 9.7(L) 13.0 - 17.5 g/dL PAVEL [place] Comment:Testing performed by : [address] [address] Hct 29.8(L) 38.9 - 50.3 % PAVEL Comment:Testing performed by : [address] [address] Plt 419(H) 150 - 400 K/cumm PAVEL [place] Comment:Testing performed by : [address] [address] MPV 9.6 9.1 - 12.3 fL PAVEL [place] Comment:Testing performed by : [address] [address] RBC 3.25(L) 4.30 - 5.80 M/cumm PAVEL [place] Comment:Testing performed by : [facility], [address] [place] [address]., [address] MCV 91.7 81.3 - 96.4 fL PAVEL [place] Comment:Testing performed by : [facility], [address] [place] [address]., [address] MCH 29.8 27.1 - 33.3 pg PAVEL [place] Comment:Testing performed by : [address] [address] MCHC 32.6 32.3 - 35.7 g/dL PAVEL [place] Comment:Testing performed by : [address] [address] RDW CV 15.2(H) 11.1 - 14.9 % PAVEL Comment:Testing performed by : [address] [address] RDW SD 51.7(H) 35.7 - 48.1 fL PAVEL Comment:Testing performed by : [address] [address] NRBC abs 0.00 0.00 - 0.01 K/cumm PAVEL Comment:Testing performed by : [address] [address] Blood 10/19/2024 4:05 AM CDT 10/19/2024 4:41 AM CDT Barbara Collins MD LAB BLO OD ORDERABLES Final Result PAVEL [address] [facility] Department of Laboratories [place], [place] [id number] * (ABNORMAL) CRP (acute phase) (10/19/2024 4:05 AM CDT) CRP 476.0(H) <=10.0 mg/L Comment:Testing performed by : [address] [address] Blood 10/19/2024 4:05 AM CDT 10/19/2024 4:39 AM CDT Rigoberto Croft MD LAB BLOOD ORDERABLES F inal Result Performing Organization Address City/[facility]/ZIP Co de Phone Number [address] [address] * (ABNORMAL) T3, free (10/19/2024 4:05 AM CDT) Free T3 1.5(L) 2.0 - 4.4 pg/mL Blood 10/19/2024 4:05 AM CDT 10/19/2024 4:42 PM CDT Narrative [facility] 10/19/2024 5:11 PM CDT This test was reflexed from a T4 result. us Matteo Julian MD LAB BLOOD ORDERABLES Cherise l Result Performing Organization Address [facility] Co de Phone Number [address] [address] * T4, free (10/19/2024 4:05 AM CDT) Free T4 1.40 0.90 - 1.70 ng/dL Comment:Testing performed by : [facility], [address] [place] [address]., [address] Blood 10/19/2024 4:05 AM CDT 10/19/2024 4:39 AM CDT Narrative [facility] 10/19/2024 2:34 PM CDT This test was reflexed from a TSH result. us Matteo Julian MD LAB BLOOD ORDERABLES Cherise l Result Performing Organization Address City/[facility]/ZIP Co de Phone Number [address] [address] * (ABNORMAL) Comprehensive metabolic panel (10/19/2024 4:05 AM CDT) Sodium 139 135 - 145 mmol/L Comment:Testing performed by : [facility], [address] [place] [address], [place]., [address] Potassium, pl 4.5 3.3 - 4.9 mmol/L PAVEL Comment: Hemolyzed; Potassium value may be falsely elevated by as much as 1.0 mmol/L. Suggest redraw and reanalysis. Testing performed by: [address], [place]., [address] Chloride 100 97 - 110 mmol/L PAVEL Comment:Testing performed by : [facility], [address] [place] [address], [place]., [address] CO2 22 22 - 32 mmol/L [facility] Comment:Testing performed by : [address], [place]., [address] Anion gap 17(H) 2 - 15 mmol/L PAVEL Comment:Testing performed by : [address], [place]., [address] BUN 89(H) 6 - 25 mg/dL [facility] Comment:Testing performed by : [address], [place]., [address] Creatinine 5.77(H) 0.80 - 1.30 mg/dL [facility] Comment:Testing performed by : [address] [address] Glucose 196 70 - 199 mg/dL [facility] Comment: Interpretive Data Fasting glucose >/= 126 [...] was last revised 2022. Testing performed by: [address], [place]., [address] Calcium 10.4(H) 8.5 - 10.3 mg/dL PAVEL Comment:Testing performed by : [address], [place]., [address] Bilirubin, total 0.2 0.1 - 1.2 mg/dL PAVEL Comment:Testing performed by : [address], [address] Protein, pl 7.1 6.5 - 8.5 g/dL PAVEL Comment:Testing performed by : [address] [address] Albumin 3.2(L) 3.5 - 5.0 g/dL PAVEL Comment:Testing performed by : [address], [address] Alk phos 102 40 - 130 Units/L PAVEL Comment:Testing performed by : [address], [address] ALT 31 7 - 55 Units/L PAVEL Comment:Testing performed by : [address], [address] AST 44 10 - 50 Units/L PAVEL Comment: Hemolyzed; result may be falsely elevated Testing performed by: [address], [address] Blood 10/19/2024 4:05 AM CDT 10/19/2024 4:39 AM CDT us Matteo Julian MD LAB BLOOD ORDERABLES Cherise l Result [facility] [address] [facility] Department [place] [address] * TRANSTHORACIC ECHO (TTE) COMPLETE W DOPPLER/CF W CONTRAST (10/18/2024 2:30 PM CDT) LV EF 30-35 % CONS SCIMAGE Anatomical Region Laterality Modality Ultrasound 10/18/2024 1:40 PM CDT Narrative 10/18/2024 6:15 PM CDT Transthoracic Echocardiographic Report Patient Name: LAMIN BETTS J : 1950 (74y 8m) Gender: M Study Date: 10/18/2024 01:40:19 PM Ht(Inch): 75 Wt(Lb): 267.99 BSA: 2.54 Air Tucker: Lily Alford RDCS Location: [id number] Order Provider: MOSQUEDAARABELLAGINO Heart Rate: 120 BMI: 33.49 BP: 121 / 94 Ref Provider: PANDAARABELLAGINO PROCEDURES: Echocardiographic Report: ([id number]) Transthoracic complete echo with contrast, 2D, spectral [...] AI Peak PG 70.00 mmHg AI Decel [place] 4.33 m/s2 AI PHT 284.00 ms MV [...] PM Ht(Inch): 75 Wt(Lb): 267.99 BSA: 2.54 Air Tucker: Lily Aflord RDCS Location: [place] [address] Order Provider:HONORIO MOSQUEDA Heart Rate: 120 BMI: 33.49 BP: 121 / 94 Ref Provider: HONORIO MOSQUEDA PROCEDURES: Echocardiographic Report: ([id number]) Transthoracic complete echo withcontrast, 2D, spectral and [...] AI Peak PG 70.00 mmHg AI Decel [place] 4.33 m/s2 AI PHT 284.00 ms MV [...] 12 lead (10/18/2024 5:59 AM CDT) Pathologist [facility] Ventricular Rate EKG/Min [address] [facility] Atrial Rate 93 BPM [facility] CA-Interval (MSEC) 208 ms [facility] QRS-Interval (MSEC) 162 ms [facility] QT-Interval (MSEC) 416 ms [facility] QTc 517 ms [facility] R [place] 257 degrees [facility] T [place] 92 degrees [facility] Diagnosis Sinus rhythm with occasional Premature ventricular complexes and Premature atrial complexes Right superior axis deviation Left bundle branch block Incomplete right bundle branch block Abnormal ECG When compared with ECG of 17-OCT-2024 13:15, Premature ventricular complexes are now Present Confirmed by SULTAN DREW M.D. ([id number]) on 10/18/2024 3:53:08 PM [facility] 10/18/2024 5:59 AM CDT 10/18/2024 3:53 PM CDT us Matteo Julian MD ECG ORDERABLES Final Res ult [facility] * (ABNORMAL) Differential, auto (10/18/2024 4:42 AM CDT) Neutrophil abs 12.6(H) 1.5 - 6.5 K/cumm Comment:Testing performed by : [facility], [address] [place] [address]., [address] Imm gran abs 0.1 0.0 - 0.1 K/cumm PAVEL Comment:Testing performed by : [facility], [address] [place] [address]., [address] Lymphocyte abs 0.4(L) 0.8 - 3.3 K/cumm PAVEL Comment:Testing performed by : [address] [address] Monocyte abs 0.5 0.2 - 0.8 K/cumm PAVEL Comment:Testing performed by : [address] [address] Eosinophil abs 0.0 0.0 - 0.5 K/cumm [facility] Comment:Testing performed by : [address] [address] Basophil abs 0.0 0.0 - 0.1 K/cumm [facility] Comment:Testing performed by : [address] [address] Neutrophil pct 92.4 % [facility] Comment: Interpretive Data Percent cell count reference ranges are not reported, since discordance with absolute values may lead to misinterpretation of CBC data. Current Interpretive Data was last revised on 2017. Testing performed by: [address] [address] Imm gran pct 0.8 % [facility] Comment: Interpretive Data Percent cell count reference ranges are not reported, since discordance with absolute values may lead to misinterpretation of CBC data. Current Interpretive Data was last revised on 2017. Testing performed by: [address] [address] Lymphocyte pct 3.2 % [facility] Comment: Interpretive Data Percent cell count reference ranges are not reported, since discordance with absolute values may lead to misinterpretation of CBC data. Current Interpretive Data was last revised on 2017. Testing performed by: [address] [address] Monocyte pct 3.5 % [facility] Comment: Interpretive Data Percent cell count reference ranges are not reported, since discordance with absolute values may lead to misinterpretation of CBC data. Current Interpretive Data was last revised on 2017. Testing performed by: [address] [place] [address] Eosinophil pct 0.0 % PAVEL Comment: Interpretive Data Percent cell count reference ranges are not reported, since discordance with absolute values may lead to misinterpretation of CBC data. Current Interpretive Data was last revised on 2017. Testing performed by: [address] [address] Basophil pct 0.1 % PAVEL Comment: Interpretive Data Percent cell count reference ranges are not reported, since discordance with absolute values may lead to misinterpretation of CBC data. Current Interpretive Data was last revised on 2017. Testing performed by: [address] [address] Blood 10/18/2024 4:42 AM CDT 10/18/2024 5:22 AM CDT Honorio Mosqueda BEHAVIORAL MODIFICATION ASSISTANT LAB BLOOD ORDERABLES Final Result Performing Organization Address [facility] de Phone Number [place] [phone] [facility] [employer] [place], [place] [id number] * (ABNORMAL) Iron profile w/ IBC (10/18/2024 4:42 AM CDT) Iron 16(L) 50 - 150 mcg/dL Comment:Testing performed by : [address] [address] TIBC 177(L) 250 - 400 mcg/dL PAVEL Comment:Testing performed by : [address] [address] Transferrin saturation 9(L) 20 - 50 % PAVEL Comment:Testing performed by : [address] [address] Blood 10/18/2024 4:42 AM CDT 10/18/2024 5:18 AM CDT Honorio Mosqueda BEHAVIORAL MODIFICATION ASSISTANT LAB BLOOD ORDERABLES Final Result Performing Organization Address [facility] de Phone Number [place] [phone] [facility] Department [place] [address] * (ABNORMAL) CBC with auto differential (10/18/2024 4:42 AM CDT) [facility] WBC 13.6(H) 3.8 - 9.9 K/cumm Comment:Testing performed by : [address] [address] Hgb 9.5(L) 13.0 - 17.5 g/dL PAVEL Comment:Testing performed by : [address] [address] Hct 30.5(L) 38.9 - 50.3 % PAVEL Comment:Testing performed by : [address] [address] Plt 342 150 - 400 K/cumm PAVEL Comment:Testing performed by : [address] [address] MPV 10.3 9.1 - 12.3 fL PAVEL Comment:Testing performed by : [address], [address] RBC 3.27(L) 4.30 - 5.80 M/cumm PAVEL Comment:Testing performed by : [address] [address] MCV 93.3 81.3 - 96.4 fL PAVEL Comment:Testing performed by : [address] [address] MCH 29.1 27.1 - 33.3 pg PAVEL Comment:Testing performed by : [address] [address] MCHC 31.1(L) 32.3 - 35.7 g/dL PAVEL Comment:Testing performed by : [address], [address] RDW CV 15.0(H) 11.1 - 14.9 % PAVEL Comment:Testing performed by : [address] [address] RDW SD 51.3(H) 35.7 - 48.1 fL PAVEL Comment:Testing performed by : [address] [address] NRBC abs 0.00 0.00 - 0.01 K/cumm PAVEL Comment:Testing performed by : [address] [address] Blood 10/18/2024 4:42 AM CDT 10/18/2024 5:22 AM CDT Barbara Collins MD LAB BLO OD ORDERABLES Final Result [address] [place] [address] * Phosphorus (10/18/2024 4:42 AM CDT) Phosphorus, pl 3.1 2.3 - 4.5 mg/dL Comment:Testing performed by : [address] [address] Blood 10/18/2024 4:42 AM CDT 10/18/2024 5:18 AM CDT Honorio Mosqueda BEHAVIORAL MODIFICATION ASSISTANT LAB BLOOD ORDERABLES Final Result Performing Organization Address City/[facility]/ZIP Co de Phone Number [address] [place] [address] * Magnesium (10/18/2024 4:42 AM CDT) Magnesium 2.0 1.4 - 2.5 mg/dL Comment:Testing performed by : [address] [address] Blood 10/18/2024 4:42 AM CDT 10/18/2024 5:18 AM CDT Honorio Mosqueda BEHAVIORAL MODIFICATION ASSISTANT LAB BLOOD ORDERABLES Final Result [address] [place] [address] * Ferritin (10/18/2024 4:42 AM CDT) Ferritin 353 30 - 400 ng/mL Comment:Testing performed by : [facility], [address] [place] [address]., [address] Blood 10/18/2024 4:42 AM CDT 10/18/2024 5:18 AM CDT Honorio Wilson Panda BEHAVIORAL MODIFICATION ASSISTANT LAB BLOOD ORDERABLES Final Result PAVEL [place] [address] [facility] Department [place] [address] * (ABNORMAL) Pneumonia PCR with aerobic culture and Gram stain Sputum (10/18/2024 12:24 AM CDT) Direct Specimen Exam Stain: Abundant squamous epithelial cells seen indicating excessive oropharyngeal contamination. Culture will not be processed further. Please submit another specimen. Smear results called to and read back by: Jackie Leos MLT ([phone]) on 10/18/2024 05:15:52 by: Willian Christine Jr, MT Results phoned to and read back by: [id number] on 10/18/2024 05:25:35 by: [id number] Comment:Testing performed by : [facility], [address] [place] [address], [place]., [address] Direct Specimen Exam Molecular Analysis: Abundant squamous epithelial cells observed on Gram stain. Specimen will not be processed for rapid molecular analysis. PAVEL [place] Comment:Testing performed by : [facility], [address] [place]., [address] Report Final Report: This is the final report. (.) PAVEL [place] Comment:Testing performed by : [facility], [address] [place]., [address] Sputum 10/18/2024 12:2 4 AM CDT 10/18/2024 3:49 AM CDT Narrative PAVEL [place] - 10/18/2024 7:45 AM CDT When rapid molecular testing results are reported, testing completed using the 9facts FilmArray Pneumonia Panel. This molecular assay detects: Acinetobacter [...] performance characteristics have been confirmed by the [facility]. The performance of the FilmArray Pneumonia Panel has not been established for monitoring treatment of infection and bacterial nucleic acids may persist independent of organism viability. Honorio Mosqueda NP LAB MICROBIOLOGY - [facility] ORDERABLES Final Result PAVEL [address] [facility] Department [place] [address] * Strep pneumoniae antigen, urine [...] AM CDT 10/18/2024 2:12 AM CDT Honorio Wilson Mosqueda LAB MICROBIOLOGY - G ENERAL ORDERABLES Final Result Performing Organization Address [facility] de Phone Number [facility] [address] [place] [address] * Legionella antigen Urine (10/18/2024 12:24 AM CDT) Legionella Ag Negative Negative Comment: Interpretive Data This test detects only Legionella pneumophila serogroup 1 antigen. Testing performed by [facility] ([phone]). Current interpretive data was last revised on 2019. Testing performed by: [facility], [address] [place]., [address] Urine 10/18/2024 12:2 4 AM CDT 10/18/2024 3:58 AM CDT Arabellagino Wilson Mosqueda LAB MICROBIOLOGY - G ENERAL ORDERABLES Final Result Performing Organization Address [facility] de Phone Number [place] [phone] [place] [address] * (ABNORMAL) Troponin T high-sensitivity 6-hour (10/17/2024 9:59 PM CDT) Trop T hs 118(H) <=22 ng/L Comment: Interpretive Data For further hscTnT resources including the diagnostic algorithm and an aid in interpretation, copy and paste this link: https://nrl.testcatalog.org/show/[email or web address] Current Interpretive Data last revised 2020. Testing performed by: [facility], [address] [place] [address]., [address] Trop T hs delta See Comment ng/L PAVEL Comment: Inappropriate collection time to report a delta. Testing performed by: [facility], [address] [place] [address]., [address] Trop T hs pct delta See Comment % PAVEL ROSADO Comment: Inappropriate collection time to report a delta. Testing performed by: [facility], [address] [place] [address]., [address] Trop T hs interp See Comment PAVEL ROSADO Comment: Inappropriate collection time to report a delta. Testing performed by: [address] [address] Blood 10/17/2024 9:59 PM CDT 10/17/2024 10:04 PM CDT Eugenio Myrick DO LAB BLOOD ORDERABLES Final Result PAVEL ROSADO [address] [facility] Department [place] [address] * (ABNORMAL) eGFR (10/17/2024 9:59 PM CDT) [...] was last reviewed 2021. Testing performed by: [facility], [address] [place] [address]., [address] Blood 10/17/2024 9:59 PM CDT 10/17/2024 10:04 PM CDT Honorio Mosqueda BEHAVIORAL MODIFICATION ASSISTANT LAB BLOOD ORDERABLES Final Result Performing Organization Address [facility] Co de Phone Number PAVEL [address] [address] * (ABNORMAL) Calcium, ionized (10/17/2024 9:59 PM CDT) Calcium, Ionized 5.17(H) 4.50 - 5.10 mg/dL Blood 10/17/2024 9:59 PM CDT 10/18/2024 12:34 AM CDT Honorio Mosqueda BEHAVIORAL MODIFICATION ASSISTANT LAB BLOOD ORDERABLES Final Result Performing Organization Address [facility] Co de Phone Number YUNIOR[address] [place] [address] * Vitamin D 25 hydroxy (10/17/2024 9:59 PM CDT) Vitamin D 25-OH 37.0 30.0 - 80.0 ng/mL Blood 10/17/2024 9:59 PM CDT 10/18/2024 12:34 AM CDT Result [facility] Honorio Mosqueda BEHAVIORAL MODIFICATION ASSISTANT LAB BLOOD ORDERABLES Final Result Performing Organization Address City/[facility] Co de Phone Number [address] [address] * Phosphorus (10/17/2024 9:59 PM CDT) Phosphorus, pl 3.3 2.3 - 4.5 mg/dL Comment:Testing performed by : [facility], [address] [place] [address]., [address] Blood 10/17/2024 9:59 PM CDT 10/17/2024 10:04 PM CDT Honorio Mosqueda BEHAVIORAL MODIFICATION ASSISTANT LAB BLOOD ORDERABLES Final Result Performing Organization Address City/[facility] Co de Phone Number PAVEL [address] [address] * (ABNORMAL) PTH (10/17/2024 9:59 PM CDT) [facility] PTH 130(H) 15 - 65 pg/mL Comment:Testing performed by : [address] [address] Blood 10/17/2024 9:59 PM CDT 10/17/2024 10:04 PM CDT Honorio Mosqueda BEHAVIORAL MODIFICATION ASSISTANT LAB BLOOD ORDERABLES Final Result Performing Organization Address [facility] Co de Phone Number PAVEL [address] [address] * (ABNORMAL) Comprehensive metabolic panel (10/17/2024 9:59 PM CDT) [facility] Sodium 136 135 - 145 mmol/L Comment:Testing performed by : [address] [address] Potassium, pl 4.3 3.3 - 4.9 mmol/L PAVEL Comment:Testing performed by : [address] [address] Chloride 99 97 - 110 mmol/L PAVEL Comment:Testing performed by : [address] [address] CO2 22 22 - 32 mmol/L PAVEL Comment:Testing performed by : [address] [address] Anion gap 15 2 - 15 mmol/L PAVEL Comment:Testing performed by : [address] [address] BUN 65(H) 6 - 25 mg/dL PAVEL Comment:Testing performed by : [address] [address] Creatinine 5.22(H) 0.80 - 1.30 mg/dL PAVEL Comment:Testing performed by : [address] [address] Glucose 244(H) 70 - 199 mg/dL PAVEL [...] was last revised 2022. Testing performed by: [address] [address] Calcium 10.4(H) 8.5 - 10.3 mg/dL PAVEL Comment:Testing performed by : [address] [address] Bilirubin, total 0.4 0.1 - 1.2 mg/dL PAVEL Comment:Testing performed by : [address] [address] Protein, pl 7.0 6.5 - 8.5 g/dL PAVEL Comment:Testing performed by : [address] [address] Albumin 3.4(L) 3.5 - 5.0 g/dL PAVEL Comment:Testing performed by : [address] [address] Alk phos 88 40 - 130 Units/L PAVEL Comment:Testing performed by : [address] [address] ALT 21 7 - 55 Units/L PAVEL Comment:Testing performed by : [address] [address] AST 26 10 - 50 Units/L PAVEL Comment:Testing performed by : [address] [address] Blood 10/17/2024 9:59 PM CDT 10/17/2024 10:04 PM CDT Honorio Mosqueda NP LAB BLOOD ORDERABLES Final Result Performing Organization Address [facility] Co de Phone Number PAVEL [address] [address] * MRSA Only (Staphylococcus aureus) PCR Nasal (10/17/2024 8:16 PM CDT) Pathologist [facility] PCR Scrn, Methicillin resistant Staphylococcus aureus (MRSA) Not Detected Not Detected Comment: Interpretive Data Testing performed using Nucleic Acid Amplification with the [employer] Mobile Interaction Xpert MRSA NxG Assay. This assay detects target DNA from mecA, mecC and the SCCmec insertion site of Staphylococcus aureus using Real-Time PCR and has been cleared by the FDA. Performance characteristics have been verified by the [facility]. Current Interpretive Data was last revised on 2023 Testing performed by: [address] [address] Nasal 10/17/2024 8:16 PM CDT 10/17/2024 8:21 PM CDT Honorio Mosqueda NP LAB MICROBIOLOGY - G ENERAL ORDERABLES Final Result Performing Organization Address [facility] de Phone Number YUNIOR[address] [address] * (ABNORMAL) Troponin T high-sensitivity 4-hour (10/17/2024 5:47 PM CDT) Pathologist [facility] Trop T hs 128(H) <=22 ng/L Comment: Interpretive Data For further hscTnT resources including the diagnostic algorithm and an aid in interpretation, copy and paste this link: https://nrl.testcatalog.org/show/hsTrop Current Interpretive Data last revised 2020. Testing performed by: [address] [address] Trop T hs pct delta -10 % [facility] Comment:Testing performed by : [address] [address] Trop T hs interp Equivocal PAVEL Comment:Testing performed by : [address] [address] Blood 10/17/2024 5:47 PM CDT 10/17/2024 5:51 PM CDT Eugeniooly Myrick DO LAB BLOOD ORDERABLES Final Result Performing Organization Address [facility] Co de Phone Number [address] [place] [address] * Sepsis Lactate w/ Reflex (10/17/2024 5:47 PM CDT) Pathologist [facility] Sepsis Lactate 1.2 0.7 - 2.0 mmol/L Comment:Testing performed by : [address] [address] Blood 10/17/2024 5:47 PM CDT 10/17/2024 5:51 PM CDT Jonathan Angel Lentz DO LAB BLOOD ORDERABLES Final Result Performing Organization Address [facility] de Phone Number [address] [address] * (ABNORMAL) POC Blood Gas and Chemistries, Venous - (10/17/2024 4:27 PM CDT) Pathologist [facility] pH,ericka POC 7.47(H) 7.32 - 7.43 Comment:Testing performed by : [address] [address] pCO2, ericka POC 30(L) 40 - 50 mmHg PAVEL Comment:Testing performed by : [address] [address] pO2,ericka POC 77 mmHg PAVEL Comment: Interpretive Data No reference range established. Current interpretive data was last revised 2020. Testing performed by: [address] [address] HCO3, ericka (Calc) POC 22 20 - 30 mmol/L PAVEL Comment:Testing performed by : [facility], [address] [place] [address]., [address] Base excess, ericka POC -1 mmol/L PAVEL ROSADO Comment: Interpretive Data No reference range established. Current interpretive data was last revised 2020. Testing performed by: [facility], [address] [place] [address]., [address] Blood 10/17/2024 4:27 PM CDT 10/17/2024 4:27 PM CDT us Jonathan Angel Brownhu DO LAB POCT ORDERABLES - DEVIC E Final Result PAVEL ROSADO [address] [facility] Department [place] [address] * NM Pulmonary Perfusion Imaging (10/17/2024 3:49 [...] Oliverio Steinberg M.D. LB: JC Report ID: [id number] Reading Location: [id number] Procedure Note Oliverio Steinberg MD - 10/17/2024 [...] Oliverio Steinberg M.D. LB: JC Report ID: [id number] Reading Location: [place] [address] Jonathan Lentz DO [facility] NM PROCEDURES Final Res ult * Blood culture Blood (10/17/2024 3:10 PM CDT) Report Final Report: No growth Comment:Testing performed by : [facility], [address] [place]., [address] Blood 10/17/2024 3:10 PM CDT 10/17/2024 7:29 [...] performance characteristics have been verified by the [facility]biology Laboratory. For questions about this culture, contact the Microbiology Laboratory at [phone]. Interpretive data was last revised on 24. Jonathan Lentz DO LAB MICROBIOLOGY - GENERAL ORDERABLES Final Result PAVEL ROSADO [address] [facility] Department [place] [address] * Blood culture Blood (10/17/2024 3:10 PM CDT) Report Final Report: No growth Comment:Testing performed by : [facility], [address] [place]., [address] Blood 10/17/2024 3:10 PM CDT 10/17/2024 7:30 PM CDT Narrative PAVEL - 10/22/2024 7:01 AM CDT Collection->Peripheral 1. [...] performance characteristics have been verified by the [facility] Microbiology Laboratory. For questions about this culture, contact the Microbiology Laboratory at [phone]. Interpretive data was last revised on 24. Jonathan Lentz DO LAB MICROBIOLOGY - GENERAL ORDERABLES Final Result Performing Organization Address City/[facility]/ZIP Co de Phone Number [facility] [address] [place] [address] * (ABNORMAL) Troponin T high-sensitivity 2-hour (10/17/2024 2:55 PM CDT) Trop T hs 133(H) <=22 ng/L Comment: Interpretive Data For further hscTnT resources including the diagnostic algorithm and an aid in interpretation, copy and paste this link: https://nrl.testcatalog.org/show/hsTrop Current Interpretive Data last revised 2020. Testing performed by: [address] [address] Trop T hs pct delta -6 % PAVEL Comment:Testing performed by : [address] [address] Trop T hs interp Equivocal PAVEL Comment:Testing performed by : [address] [address] Blood 10/17/2024 2:55 PM CDT 10/17/2024 2:59 PM CDT Eugenio Myrick DO LAB BLOOD ORDERABLES Final Result Performing Organization Address [facility]/ZIP Co de Phone Number [facility] [address] [place], [place] [id number] * Influenza A/B, RSV, and COVID-19 PCR Nasopharyngeal (10/17/2024 2:55 PM CDT) COVID-19 RNA Negative Negative Comment:Testing performed by : [address] [address] Influenza A RNA Negative Negative PAVEL Comment:Testing performed by : [address] [address] Influenza B RNA Negative Negative PAVEL Comment:Testing performed by : [address] [address] RSV RNA Negative Negative PAVEL Comment: Interpretive data: Testing performed by [facility]. This test is performed using the [employer]sey Mobile Interaction Xpert Xpress CoV-2/Flu/RSV plus assay. This is a multiplex, real-time reverse transcriptase PCR assay intended for the qualitative detection of nucleic acid from SARS-CoV-2, influenza A, influenza B, and respiratory syncytial virus. This assay has been cleared by the [place] Food and Drug administration. The performance characteristics have been verified by the [facility]. Results must be considered in the clinical context, and a negative result does not rule out infection. Interpretive Data last revised 2023 Testing performed by: [address] [address] Nasopharyngeal 10/17/2024 2: 55 PM CDT 10/17/2024 2:58 PM CDT Narrative PAVEL - 10/17/2024 3:38 PM CDT Is the Patient experiencing symptoms consistent with COVID?->Yes Li [facility] LAB MICROBIOLOGY - GENERAL ORDE BERTA Final Result Performing Organization Address City/[facility]/ZIP Co de Phone Number [facility] [address] [facility] Department [place] [address] * (ABNORMAL) Sepsis Lactate w/ Reflex (10/17/2024 2:55 PM CDT) Pathologist [facility] Sepsis Lactate 2.1(H) 0.7 - 2.0 mmol/L Comment:Testing performed by : [address] [address] Blood 10/17/2024 2:55 PM CDT 10/17/2024 2:58 PM CDT Jonathan Lentz DO LAB BLOOD ORDERABLES Final Result Performing Organization Address City/[facility]/ZIP Co de Phone Number PAVEL ROSADO [address] [facility] Department [place] [address] * (ABNORMAL) Pro B-type natriuretic peptide (10/17/2024 [...] Last Revised Date: 2018. Testing performed by: [facility], [address] [place] [address]., [address] Blood 10/17/2024 2:55 PM CDT 10/17/2024 2:59 PM CDT Jonathan Lentz DO LAB BLOOD ORDERABLES Final Result Performing Organization Address City/State/[facility] Co de Phone Number PAVEL ROSADO [address] [facility] Department [place] [address] * XR Chest 1 Vw Portable (if [...] Virginie Conrad D.O. PS: PS Report ID: [id number] Reading Location: [id number] Procedure Note Virginie Conrad, DO - 10/17/2024 EXAM DESCRIPTION: XR CHEST [...] Virginie Conrad D.O. PS: PS Report ID: [id number] Reading Location: [place] [address] Jonathan Lentz DO IMG XR PROCEDURES Final Res ult * ECG 12 lead (10/17/2024 1:15 PM CDT) Ventricular Rate EKG/Min 101 BPM [facility] Atrial Rate 101 BPM [facility] CA-Interval (MSEC) 192 ms [facility] QRS-Interval (MSEC) 154 ms [facility] QT-Interval (MSEC) 390 ms [facility] QTc 505 ms [facility] P [place] 85 degrees [facility] R [place] 264 degrees [facility] T [place] 59 degrees [facility] Diagnosis Sinus tachycardia with Premature supraventricular complexes Right bundle branch block Abnormal ECG When compared with ECG of 12-JAN-2004 11:38, Premature supraventricular complexes are now Present Right bundle branch block is now Present Confirmed by ASHLEY WYNNE M.D. ([id number]) on 10/18/2024 9:51:49 PM [facility] 10/17/2024 1:15 PM CDT 10/18/2024 9:51 PM CDT Jonathan Lentz DO ECG ORDERABLES Final Resul t [facility] * (ABNORMAL) Troponin T high-sensitivity series (baseline, 2hr, 4hr, 6hr) (10/17/2024 1:12 PM CDT) Trop T hs 142(H) <=22 ng/L Comment: Interpretive Data For further hscTnT resources including the diagnostic algorithm and an aid in interpretation, copy and paste this link: https://nrl.testcatalog.org/show/hsTrop Current Interpretive Data last revised 2020. Testing performed by: [address] [address] Blood 10/17/2024 1:12 PM CDT 10/17/2024 1:40 PM CDT Jonathan Lentz DO LAB BLOOD ORDERABLES Final Result PAVEL [address] [place] [address] * (ABNORMAL) eGFR (10/17/2024 1:12 [...] was last reviewed 2021. Testing performed by: [facility], [address] [place] [address]., [address] Blood 10/17/2024 1:12 PM CDT 10/17/2024 1:40 PM CDT Jonathan Lentz DO LAB BLOOD ORDERABLES Final Result PAVEL [facility] Department [place] [address] * (ABNORMAL) Differential, auto (10/17/2024 1:12 PM CDT) Neutrophil abs 13.0(H) 1.5 - 6.5 K/cumm Comment:Testing performed by : [address] [address] Imm gran abs 0.1 0.0 - 0.1 K/cumm PAVEL Comment:Testing performed by : [address] [address] Lymphocyte abs 0.6(L) 0.8 - 3.3 K/cumm PAVEL Comment:Testing performed by : [address] [address] Monocyte abs 1.5(H) 0.2 - 0.8 K/cumm PAVEL Comment:Testing performed by : [address] [address] Eosinophil abs 0.0 0.0 - 0.5 K/cumm PAVEL Comment:Testing performed by : [address] [address] Basophil abs 0.0 0.0 - 0.1 K/cumm PAVEL Comment:Testing performed by : [address] [address] Neutrophil pct 85.3 % PAVEL Comment: Interpretive Data Percent cell count reference ranges are not reported, since discordance with absolute values may lead to misinterpretation of CBC data. Current Interpretive Data was last revised on 2017. Testing performed by: [address] [address] Imm gran pct 0.6 % PAVEL Comment: Interpretive Data Percent cell count reference ranges are not reported, since discordance with absolute values may lead to misinterpretation of CBC data. Current Interpretive Data was last revised on 2017. Testing performed by: [address] [address] Lymphocyte pct 3.9 % PAVEL Comment: Interpretive Data Percent cell count reference ranges are not reported, since discordance with absolute values may lead to misinterpretation of CBC data. Current Interpretive Data was last revised on 2017. Testing performed by: [address] [address] Monocyte pct 10.0 % PAVEL Comment: Interpretive Data Percent cell count reference ranges are not reported, since discordance with absolute values may lead to misinterpretation of CBC data. Current Interpretive Data was last revised on 2017. Testing performed by: [address] [address] Eosinophil pct 0.1 % PAVEL Comment: Interpretive Data Percent cell count reference ranges are not reported, since discordance with absolute values may lead to misinterpretation of CBC data. Current Interpretive Data was last revised on 2017. Testing performed by: [address] [address] Basophil pct 0.1 % PAVEL Comment: Interpretive Data Percent cell count reference ranges are not reported, since discordance with absolute values may lead to misinterpretation of CBC data. Current Interpretive Data was last revised on 2017. Testing performed by: [address] [address] Blood 10/17/2024 1:12 PM CDT 10/17/2024 1:40 PM CDT Jonathan Lentz DO LAB BLOOD ORDERABLES Final Result [facility] [address] [facility] Department [place] [address] * (ABNORMAL) CBC with auto differential (10/17/2024 1:12 PM CDT) WBC 15.3(H) 3.8 - 9.9 K/cumm Comment:Testing performed by : [address] [address] Hgb 9.7(L) 13.0 - 17.5 g/dL PAVEL Comment:Testing performed by : [address] [address] Hct 29.8(L) 38.9 - 50.3 % PAVEL Comment:Testing performed by : [address] [address] Plt 348 150 - 400 K/cumm PAVEL Comment:Testing performed by : [address] [address] MPV 9.8 9.1 - 12.3 fL PAVEL Comment:Testing performed by : [address] [address] RBC 3.24(L) 4.30 - 5.80 M/cumm PAVEL Comment:Testing performed by : [address], [address] MCV 92.0 81.3 - 96.4 fL PAVEL Comment:Testing performed by : [address] [address] MCH 29.9 27.1 - 33.3 pg PAVEL Comment:Testing performed by : [address] [address] MCHC 32.6 32.3 - 35.7 g/dL PAVEL Comment:Testing performed by : [address] [address] RDW CV 15.0(H) 11.1 - 14.9 % PAVEL Comment:Testing performed by : [address] [address] RDW SD 51.2(H) 35.7 - 48.1 fL PAVEL Comment:Testing performed by : [address] [address] NRBC abs 0.00 0.00 - 0.01 K/cumm PAVEL Comment:Testing performed by : [address], [address] Blood 10/17/2024 1:12 PM CDT 10/17/2024 1:40 PM CDT Jonathan Lentz DO LAB BLOOD ORDERABLES Final Result PAVEL [address] [facility] Department [place] [address] * Magnesium (10/17/2024 1:12 PM CDT) [facility] Magnesium 1.5 1.4 - 2.5 mg/dL Comment:Testing performed by : [address] [address] Blood 10/17/2024 1:12 PM CDT 10/17/2024 1:40 PM CDT Jonathan Ortiz Lentz DO LAB BLOOD ORDERABLES Final Result PAVEL [facility] [place] [address] * (ABNORMAL) Comprehensive metabolic panel (10/17/2024 1:12 PM CDT) [facility] Sodium 136 135 - 145 mmol/L Comment:Testing performed by : [address] [address] Potassium, pl 4.5 3.3 - 4.9 mmol/L PAVEL Comment: Hemolyzed; Potassium value may be falsely elevated by as much as 1.0 mmol/L. Suggest redraw and reanalysis. Testing performed by: [address] [address] Chloride 98 97 - 110 mmol/L PAVEL Comment:Testing performed by : [address] [address] CO2 23 22 - 32 mmol/L PAVEL Comment:Testing performed by : [address] [address] Anion gap 15 2 - 15 mmol/L PAVEL Comment:Testing performed by : [address] [address] BUN 56(H) 6 - 25 mg/dL PAVEL Comment:Testing performed by : [address] [address] Creatinine 4.86(H) 0.80 - 1.30 mg/dL PAVEL Comment:Testing performed by : [address] [address] Glucose 119 70 - 199 mg/dL PAVEL Comment: Interpretive [...] was last revised 2022. Testing performed by: [address] [address] Calcium 10.5(H) 8.5 - 10.3 mg/dL PAVEL Comment:Testing performed by : [address] [address] Bilirubin, total 0.6 0.1 - 1.2 mg/dL PAVEL Comment:Testing performed by : [address] [address] Protein, pl 7.3 6.5 - 8.5 g/dL PAVEL Comment:Testing performed by : [address] [address] Albumin 3.6 3.5 - 5.0 g/dL PAVEL Comment:Testing performed by : [address] [address] Alk phos 91 40 - 130 Units/L PAVEL Comment:Testing performed by : [address] [address] ALT 22 7 - 55 Units/L PAVEL Comment:Testing performed by : [address] [address] AST 29 10 - 50 Units/L PAVEL Comment: Hemolyzed; result may be falsely elevated Testing performed by: [address] [address] Blood 10/17/2024 1:12 PM CDT 10/17/2024 1:40 PM CDT Jonathan Angel Brownhu LAB BLOOD ORDERABLES Final Result PAVEL [facility] [address] [facility] Department [place] [address] from Last 3 Months Insurance [facility] MEDICARE ADVANTAGE [facility] MED[facility] Address: [place] [id number] [facility] MEDICARE ADVANTAGE [facility] Address: [address] [address] [place] [address] [facility] MEDICARE ADVANTAGE Advance Directives For more information, please contact: [phone] * Full Code (Latest Code Status on File) Date Activated Date Inactivated Comments 10/17/2024 7:52 PM 10/27/2024 6:57 PM Care Teams [employer] Relationship Specialty Start Date End Date Soraya Jauregui MD [address] [place] [address] PCP - General Internal Medicine 03/29/24
[2024-12-23 16:14] LABS: Basophils Absolute Auto 0.1 K/mm3 (0.0-0.1); Basophils Percent Auto 0.7 % (0.2-1.2); Eosinophils Absolute Auto 0.2 K/mm3 (0-0.3); Eosinophils Percent Auto 2.5 % (0-4.4); Hematocrit 34.8 % (42.0-52.0); Hemoglobin 10.7 g/dL (14.0-18.0); Immature Granulocyte Absolute 0.03 K/mm3 (0.00-0.031); Immature Granulocyte Percent A 0.3 % (0-0.5); Lymphocytes Absolute Auto 1.54 K/mm3 (0.9-3.2); Lymphocytes Percent Auto 16.1 % (18.3-44.2); Mean Corpuscular HGB Conc 30.7 g/dl (32-36); Mean Corpuscular Hemoglobin 30.1 pg (26-34); Mean Platelet Volume 8.8 fl (7.4-10.4); Monocytes Absolute Auto 0.9 K/mm3 (0.1-0.6); Monocytes Percent Auto 9.6 % (2.6-8.5); Neutrophils Absolute Auto 6.8 K/mm3 (1.3-6.7); Neutrophils Percent Auto 70.8 % (45.5-73.1); Platelet Count Result 404 k/mm3 (150-375); Red Blood Count 3.55 M/mm3 (4.6-6.20); Red Cell Distribution Width 15.7 % (11.5-14.5); White Blood Count 9.6 K/mm3 (4.5-10.0)
[2024-12-23 16:26] LABS: INR 1.3
[2024-12-23 16:27] LABS: Partial Thromboplastin Time 42.6 Seconds (22.3-36.8)
[2024-12-23 16:29] LABS: Alanine Aminotransferase 29 U/L (6-50); Albumin Level 4.4 g/dL (3.5-5.1); Alkaline Phosphatase 76 U/L (38-126); Anion Gap 10 mmol/L (4-12); Aspartate Amino Transferase 34 U/L (17-59); Bilirubin,Total 1.2 mg/dL (0.2-1.3); Blood Urea Nitrogen 23 mg/dL (9-20); Calcium 8.7 mg/dL (8.4-10.2); Carbon Dioxide 28 mmol/L (22-30); Chloride 100 mmol/L (98-107); Estimated CRCL calculation 31 ml/min; Estimated Glomerular Filt Rate 23; Glucose 101 mg/dL (65-110); Potassium 3.7 mmol/L (3.4-5.0); Sodium 138 mmol/L (137-145)
[2024-12-23 16:31] LABS: D Dimer 0.69 ug/mL (<0.48)
[2024-12-23 16:47] LABS: Troponin I 0.039 ng/mL (0.000-0.034)
--- OUTSIDE RECORDS SUMMARY | 2024-12-23 17:11 | XMS_ITS | Encounter Summary ---
Author Organization [facility] Address [address] [place] [address] Phone Care Team Providers Care Hazardous Material Technician Name Role Phone Orlando Lara MD Primary Care Provider [phone] Reason for Visit * Reason Comments Med Refill Encounter Details Date Type Department Care Team (Late st Contact Info) Description 04/12/2021 Refill [facility] [address], [address] [place] [address] Uday Jones MD [address] [address] Social History Tobacco Use Types Packs/Day Years Used Date Smoking Tobacco: Former Smokeless Tobacco: Never Comments:Smoking History Pac ks/day: quit - 8 months ago Alcohol Use Standard Drinks/Week Comments Yes 0 (1 standard drink = 0.6 oz pure alcohol) Alcoholic Drinks/day: occasional use Sex and Gender Information Value Date Recorded Sex Assigned at Not on file Legal Sex Male 9:08 AM [facility] Gender Identity Not on file Sexual Orientation Not on file documented as of this encounter Miscellaneous Notes * Telephone Encounter - Mackenzie Delvalle MA - 04/12/2021 11:31 AM CDT It is okay! I called it into the marine diesel technician documented in this encounter Plan of Treatment Upcoming Encounters Date Type Department Care Team (Late st Contact Info) Description 01/03/2025 1:40 PM CDT Office Visit [facility] [address], [address] [place] [address] Rosemary Hugo, CENTRAL OFFICE REPAIRER SUPERVISOR [address] [facility] 1 [place] [address] documented as of this encounter Visit Diagnoses Not on filedocumented in this encounter Care Teams Hazardous Material Technician Relationship Specialty Start Date End Date Orlando Lara MD 2044 [facility] 15 [place] [address] PCP - General 09/07/24 documented as of this encounter
--- OUTSIDE RECORDS SUMMARY | 2024-12-23 17:11 | XMS_ITS | Encounter Summary ---
Author Organization [facility] Address [address] [place] [address] Phone Care Team Providers Care Correctional Supervisor Lieutenant Name Role Phone [place] Lara MD Primary Care Provider [phone] Reason for Visit * Reason Comments Med Refill Encounter Details Date Type Department Care Team (Late st Contact Info) Description 04/08/2020 Refill [facility] [address], [address] [place], [place] [id number] Uday Jones MD [address] [address] Social History Tobacco Use Types [...] Description 01/03/2025 1:40 PM CDT Office Visit [facility] [address], [address] [place], [place] [id number] Rosemary Hugo NP [address] [address] documented as of this encounter Visit Diagnoses Not on filedocumented in this encounter Care Teams Correctional Supervisor Lieutenant Relationship Specialty Start Date End Date Orlando Lara MD 2044 [facility] 15 [place] [address] PCP - General 09/07/24 documented as of this encounter
--- OUTSIDE RECORDS SUMMARY | 2024-12-23 17:11 | XMS_ITS | Encounter Summary ---
Author Organization [facility] Address [address] [place] [address] Phone Care Team Providers Care Level Vial Grinder Name Role Phone Orlando Lara MD Primary Care Provider [phone] Reason for Visit * Reason Comments Med Refill Encounter Details Date Type Department Care Team (Late st Contact Info) Description 02/19/2019 Refill [facility] [address], [address] [place] [address] Uday Jones MD [facility] [address] [id number] Social History Tobacco Use Types Packs/Day Years Used Date Smoking Tobacco: Former Smokeless Tobacco: Never Comments:Smoking History Pac ks/day: quit - 8 months ago Alcohol Use Standard Drinks/Week Comments Yes 0 (1 standard drink = 0.6 oz pure alcohol) Alcoholic Drinks/day: occasional use Sex and Gender Information Value Date Recorded Sex Assigned at Not on file Legal Sex Male 9:08 AM [facility] Gender Identity Not on file Sexual [...] Description 01/03/2025 1:40 PM CDT Office Visit [facility] [address], [address] [place] [address] Rosemary Hugo, JUNIOR [address] [facility] 1 [place] [address] documented as of this encounter Visit Diagnoses Not on filedocumented in this encounter Care Teams Level Vial Grinder Relationship Specialty Start Date End Date Orlando Lara MD 2044 [facility] 15 [place] [address] PCP - General 09/07/24 documented as of this encounter
--- OUTSIDE RECORDS SUMMARY | 2024-12-23 17:11 | XMS_ITS | Encounter Summary ---
Author Organization [facility] Address [address] [place] [address] Phone Care Team Providers Care Internal Affairs Commander Name Role Phone [place] Lara MD Primary Care Provider Reason for Visit * Reason Comments Med Refill Encounter Details Date Type Department Care Team (Late st Contact Info) Description 03/10/2020 Refill [facility] [address], [address] [place] [address] Uday Jones MD [address] [address] Social History Tobacco Use Types [...] Description 01/03/2025 1:40 PM CDT Office Visit [facility] [address], [address] [place], [place] [id number] Rosemary Hugo NP [address] [address] documented as of this encounter Visit Diagnoses Not on filedocumented in this encounter Care Teams Internal Affairs Commander Relationship Specialty Start Date End Date Orlando Lara MD 2044 [facility] 15 [place] [address] PCP - General 09/07/24 documented as of this encounter
--- OUTSIDE RECORDS SUMMARY | 2024-12-23 17:11 | XMS_ITS | Encounter Summary ---
Author Organization [facility] Address [address] [place] [address] Phone Care Team Providers Care Government Auditor Name Role Phone [place] Lara MD Primary Care Provider [phone] Reason for Visit * Reason Comments Med Refill Encounter Details Date Type Department Care Team (Late st Contact Info) Description 10/31/2019 Refill [facility] [address], [address] [place], [place] [phone] Uday Jones MD [address] [address] Social History Tobacco Use Types [...] Description 01/03/2025 1:40 PM CDT Office Visit [facility] [address], [address] [place], [place] [id number] Rosemary Hugo NP [address] [address] documented as of this encounter Visit Diagnoses Not on filedocumented in this encounter Care Teams Government Auditor Relationship Specialty Start Date End Date Orlando Lara MD 2044 [facility] 15 [place] [address] PCP - General 09/07/24 documented as of this encounter
--- OUTSIDE RECORDS SUMMARY | 2024-12-23 17:11 | XMS_ITS | Encounter Summary ---
Author Organization [facility] Address [address] [place] [address] Phone Care Team Providers Care Rn Wellness Name Role Phone [place] Lara MD Primary Care Provider [phone] Reason for Visit * Reason Comments Med Refill Encounter Details Date Type Department Care Team (Late st Contact Info) Description 12/25/2019 Refill [facility] [address], [address] [place] [address] Uday Jones MD [address] [address] Social History Tobacco Use Types [...] Description 01/03/2025 1:40 PM CDT Office Visit [facility] [address], [address] [place], [place] [phone] Rosemary Hugo NP [address] [address] documented as of this encounter Visit Diagnoses Not on filedocumented in this encounter Care Teams Rn Wellness Relationship Specialty Start Date End Date Orlando Lara MD 2044 [facility] 15 [place] [address] PCP - General 09/07/24 documented as of this encounter
--- OUTSIDE RECORDS SUMMARY | 2024-12-23 17:11 | XMS_ITS | Encounter Summary ---
Author Organization [facility] Address [address] [place] [address] Phone Care Team Providers Care Studio Potter Name Role Phone Orlando Lara MD Primary Care Provider [phone] Reason for Visit * Reason Comments Med Refill Encounter Details Date Type Department Care Team (Late st Contact Info) Description 11/19/2019 Refill [facility] [address], [address] [place], [place] [id number] Uday Jones MD [address] [address] Social History Tobacco Use Types [...] Description 01/03/2025 1:40 PM CDT Office Visit [facility] [address], [address] [place], [place] [address] Rosemary Hugo NP [address] [address] documented as of this encounter Visit Diagnoses Not on filedocumented in this encounter Care Teams Studio Potter Relationship Specialty Start Date End Date Orlando Lara MD 2044 [facility] 15 [place] [address] PCP - General 09/07/24 documented as of this encounter
--- OUTSIDE RECORDS SUMMARY | 2024-12-23 17:11 | XMS_ITS | Encounter Summary ---
Author Organization [facility] Address [address] [place] [address] Phone Care Team Providers Care Sizing Sprayer Name Role Phone [place] Lara MD Primary Care Provider [phone] Reason for Visit * Reason Comments Med Refill Encounter Details Date Type Department Care Team (Late Contact Info) Description 03/12/2020 Refill [facility] [address], [address] [place] [address] Uday Jones MD [address] [address] Social History Tobacco Use Types Packs/Day Years Used Date Smoking Tobacco: Former Smokeless Tobacco: Never Comments:Smoking History Pac ks/day: quit - 8 months ago Alcohol Use Standard Drinks/Week Comments Yes 0 (1 standard drink = 0.6 oz pure alcohol) Alcoholic Drinks/day: occasional use Sex and Gender Information Value Date Recorded Sex Assigned at Not on file Legal Sex Male 9:08 AM [facility] Gender Identity Not on file Sexual Orientation Not on file documented as of this encounter Miscellaneous Notes * Telephone Encounter - Anel Greenwood RN - 03/12/2020 4:54 PM CDT Called to pharmacy VM documented in this encounter Plan of Treatment Upcoming Encounters Date Type Department Care Team (Late Contact Info) Description 01/03/2025 1:40 PM CDT Office Visit [facility] [address], [address] [place] [address] Rosemary Hugo NP [address] [facility] 1 [place] [address] documented as of this encounter Visit Diagnoses Not on filedocumented in this encounter Care Teams Sizing Sprayer Relationship Specialty Start Date End Date Orlando Lara MD 2043 [facility] 15 [place] [address] PCP - General 09/07/24 documented as of this encounter
--- OUTSIDE RECORDS SUMMARY | 2024-12-23 17:11 | XMS_ITS | Encounter Summary ---
Author Organization [facility] Address [address] [place] [address] Phone Care Team Providers Care Supervisor Of Operations Name Role Phone [place] Lara MD Primary Care Provider [phone] Reason for Visit * Reason Comments Med Refill Encounter Details Date Type Department Care Team (Late st Contact Info) Description 05/14/2021 Refill [facility] [address], [address] [place] [address] Uday Jones MD [address] [address] Social History Tobacco Use Types [...] Description 01/03/2025 1:40 PM CDT Office Visit [facility] [address], [address] [place] [address] Rosemary Hugo NP [address] [address] documented as of this encounter Visit Diagnoses Not on filedocumented in this encounter Care Teams Supervisor Of Operations Relationship Specialty Start Date End Date Orlando Lara MD 2044 [facility] 15 [place] [address] PCP - General 09/07/24 documented as of this encounter
--- OUTSIDE RECORDS SUMMARY | 2024-12-23 17:11 | XMS_ITS | Encounter Summary ---
Author Organization [facility] Address [address] [place] [address] Phone Care Team Providers Care Veneer Grader Name Role Phone [place] Lara MD Primary Care Provider [phone] Reason for Visit * Reason Comments Med Refill Encounter Details Date Type Department Care Team (Late st Contact Info) Description 08/18/2019 Refill [facility] [address], [address] [place], [place] [address] Uday Jones MD [address] [address] Social History Tobacco Use Types [...] Description 01/03/2025 1:40 PM CDT Office Visit [facility] [address], [address] [place], [place] [address] Rosemary Hugo NP [address] [address] documented as of this encounter Visit Diagnoses Not on filedocumented in this encounter Care Teams Veneer Grader Relationship Specialty Start Date End Date Orlando Lara MD 2044 [facility] 15 [place] [address] PCP - General 09/07/24 documented as of this encounter
--- OUTSIDE RECORDS SUMMARY | 2024-12-23 17:11 | XMS_ITS | Encounter Summary ---
Author Organization [facility] Address [address] [place] [address] Phone Care Team Providers Care Light Technician Name Role Phone Orlando Lara MD Primary Care Provider [phone] Reason for Visit * Reason Comments Med Refill Encounter Details Date Type Department Care Team (Late st Contact Info) Description 08/17/2019 Refill [facility] [address], [address] [place], [place] [address] Uday Jones MD [address] [address] Social History Tobacco Use Types [...] Description 01/03/2025 1:40 PM CDT Office Visit [facility] [address], [address] [place], [place] [address] Rosemary Hugo NP [address] [address] documented as of this encounter Visit Diagnoses Not on filedocumented in this encounter Care Teams Light Technician Relationship Specialty Start Date End Date Orlando Lara MD 2044 [facility] 15 [place] [address] PCP - General 09/07/24 documented as of this encounter
--- OUTSIDE RECORDS SUMMARY | 2024-12-23 17:11 | XMS_ITS | Encounter Summary ---
Author Organization [facility] Address [address] [place] [address] Phone Care Team Providers Care Knitter Operator Name Role Phone Orlando Lara MD Primary Care Provider [phone] Reason for Visit * Reason Comments Med Refill Encounter Details Date Type Department Care Team (Late st Contact Info) Description 11/11/2021 Refill [facility] [address], [address] [place] [address] Uday Jones MD [address] [address] Social History Tobacco Use Types [...] Description 01/03/2025 1:40 PM CDT Office Visit [facility] [address], [address] [place] [address] Rosemary Hugo NP [address] [address] documented as of this encounter Visit Diagnoses Not on filedocumented in this encounter Care Teams Knitter Operator Relationship Specialty Start Date End Date Orlando Lara MD 2044 [facility] 15 [place] [address] PCP - General 09/07/24 documented as of this encounter
--- OUTSIDE RECORDS SUMMARY | 2024-12-23 17:11 | XMS_ITS | Encounter Summary ---
Author Organization [facility] Address [address] [place] [address] Phone Care Team Providers Care Email Marketing Manager Name Role Phone Orlando Lara MD Primary Care Provider [phone] Reason for Visit * Reason Comments Med Refill Encounter Details Date Type Department Care Team (Late st Contact Info) Description 08/20/2019 Refill [facility] [address], [address] [place], [place] [address] Uday Jones MD [address] [address] Social History Tobacco Use Types [...] Description 01/03/2025 1:40 PM CDT Office Visit [facility] [address], [address] [place], [place] [address] Rosemary Hugo NP [address] [address] documented as of this encounter Visit Diagnoses Not on filedocumented in this encounter Care Teams Email Marketing Manager Relationship Specialty Start Date End Date Orlando Lara MD 2044 [facility] 15 [place] [address] PCP - General 09/07/24 documented as of this encounter
--- OUTSIDE RECORDS SUMMARY | 2024-12-23 17:11 | XMS_ITS | Encounter Summary ---
Author Organization [facility] Address [address] [place] [address] Phone Care Team Providers Care Petroleum Refinery Laborer Name Role Phone [place] Lara MD Primary Care Provider [phone] Reason for Visit * Reason Comments Med Refill Encounter Details Date Type Department Care Team (Late st Contact Info) Description 08/19/2019 Refill [facility] [address], [address] [place], [place] [address] Uday Jones MD [address] [address] Social History Tobacco Use Types [...] Description 01/03/2025 1:40 PM CDT Office Visit [facility] [address], [address] [place], [place] [address] Rosemary Hugo NP [address] [address] documented as of this encounter Visit Diagnoses Not on filedocumented in this encounter Care Teams Petroleum Refinery Laborer Relationship Specialty Start Date End Date Orlando Lara MD 2044 [facility] 15 [place] [address] PCP - General 09/07/24 documented as of this encounter
--- OUTSIDE RECORDS SUMMARY | 2024-12-23 17:11 | XMS_ITS | Encounter Summary ---
Author Organization [facility] Address [address] [place] [address] Phone Care Team Providers Care Extermination Supervisor Name Role Phone Orlando Lara MD Primary Care Provider [phone] Reason for Visit * Reason Comments Med Refill Encounter Details Date Type Department Care Team (Late st Contact Info) Description 06/11/2019 Refill [facility] [address], [address] [place], [place] [address] Uday Jones MD [address] [address] Social History Tobacco Use Types [...] Description 01/03/2025 1:40 PM CDT Office Visit [facility] [address], [address] [place], [place] [address] Rosemary Hugo NP [address] [address] documented as of this encounter Visit Diagnoses Not on filedocumented in this encounter Care Teams Extermination Supervisor Relationship Specialty Start Date End Date Orlando Lara MD 2044 [facility] 15 [place] [address] PCP - General 09/07/24 documented as of this encounter
--- OUTSIDE RECORDS SUMMARY | 2024-12-23 17:12 | XMS_ITS | Encounter Summary ---
Author Organization [facility] Address [address] [place] [address] Phone Care Team Providers Care Service Supervisor Name Role Phone [place] Lara MD Primary Care Provider [phone] Reason for Visit * Reason Comments Med Refill Encounter Details Date Type Department Care Team (Late st Contact Info) Description 08/17/2019 Refill [facility] [address], [address] [place], [place] [address] Uday Jones MD [address] [address] Social History Tobacco Use Types [...] Description 01/03/2025 1:40 PM CDT Office Visit [facility] [address], [address] [place], [place] [address] Rosemary Hugo NP [address] [address] documented as of this encounter Visit Diagnoses Not on filedocumented in this encounter Care Teams Service Supervisor Relationship Specialty Start Date End Date Orlando Lara MD 2044 [facility] 15 [place] [phone] PCP - General 09/07/24 documented as of this encounter
--- OUTSIDE RECORDS SUMMARY | 2024-12-23 17:12 | XMS_ITS | Encounter Summary ---
Author Organization [facility] Healthcare Address [address] [place] [address] Care Team Providers Care Fabrication Mig Welder Name Role Phone Mal Jauregui MD Primary Care Provider Reason for Visit * Reason Comments Follow-up 1 mo f/u Coronary Artery Disease Encounter Details Date Type Department Care Team (Late st Contact Info) Description 12/22/2024 1:30 PM CDT Office Visit [facility] Cardiology [address] [address] Orlando Porter MD 68[address] [facility] [address] [id number] History of coronary artery stent placement (Primary Dx); Coronary artery disease of [place] artery of [place] heart with stable angina pectoris; Longstanding persistent atrial fibrillation (HCC) Social History Tobacco Use Types Packs/Day Years Used Date Smoking Tobacco: Former Cigarettes Q uit: 08/03/2024 Alcohol Use Standard Drinks/Week Comments Yes 0 (1 standard drink = 0.6 oz pur e alcohol) [facility] Utilities Answer Date Recorded In the past 12 months has [employer] electric, gas, oil, or water company threatened [...] often do you attend chur ch or catholic services? Patient unable to answer 11/10/2024 Do you belong to any clubs o r organizations such as uatsdin groups, unions, fraternal or athletic groups, or [...] any time in the past 12 m [facility], were you homeless or living in a [facility] (including now)? Patient unable to answer 11/10/2024 Personal Safety Answer Date Recorded Have you ever been in or are you currently in a harmful physical or emotional relationship or is someone making you feel afraid or unsafe? Denies 10/21/2024 Sex and Gender Information Value Date Recorded Sex Assigned at Not on file Legal Sex Male 8:02 PM EMBLEM MAKER Gender Identity Not on file Sexual Orientation [...] kidney disease and is followed by a lime kiln tender as well. He returns today for annual follow-up. He has not been well since his last appointment with me. 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 It looks like he was hospitalized at [facility] couple of times because of this. He [...] began in October when he was at [facility]. He has an appointment early January to have surgery at [facility] to create a AV fistula. REVIEW OF [...] or shortness of breath, Disp: , Rfl: unxjpktokxn-klqseqven-duocmeeg (Trelegy Ellipta) 100-62.5-25 mcg inhaler, Inhale 1 [...] artery stent placement Coronary artery disease of [place] artery of [place] heart with stable angina pectoris Atrial flutter [...] Description 01/03/2025 7:30 AM CDT Hospital Encounter [facility] [address] [place] [address] Jon Pope MD PhD [address] [place] [address] 01/03/2025 7:30 AM CDT Anesthesia Event [facility] [address] [place] [address] China Mercado, PIPELINE SUPERINTENDENT [address] [facility] [phone] [place] [address] 01/03/2025 7:30 AM CDT - 01/03/2025 11:15 AM CDT Surgery [facility] [address] [place] [address] Jon Pope MD PhD [address] [place] [address] CREATION ARTERIOVENOUS FISTULA - ARM Scheduled Procedures [...] stent placement- Primary Coronary artery disease of [place] artery of [place] heart with stable angina pectoris Longstanding persistent atrial fibrillation (HCC) ESRD (end stage renal disease) (HCC) End stage renal disease documented in this encounter Care Teams Fabrication Mig Welder Relationship Specialty Start Date End Date Mal Jauregui MD [address] [place] [phone] PCP - General Internal Medicine 03/29/24 documented as of this encounter
--- OUTSIDE RECORDS SUMMARY | 2024-12-23 17:12 | XMS_ITS | Encounter Summary ---
Author Organization [facility] Address [address] [place] [address] Phone Care Team Providers Care Phlebotomy Instructor Name Role Phone Orlando Lara MD Primary Care Provider [phone] Reason for Visit * Reason Comments Med Refill Encounter Details Date Type Department Care Team (Late st Contact Info) Description 11/17/2018 Refill [facility] [address] [facility] [address] [place] [address] Uday Jones MD [address] [address] Social History Tobacco Use Types Packs/Day Years Used Date Smoking Tobacco: Former Comments:Smoking History Pac ks/day: quit - 8 months ago Alcohol Use Standard Drinks/Week Comments Yes 0 (1 standard drink = 0.6 oz pure alcohol) Alcoholic Drinks/day: occasional use Sex and Gender Information Value Date Recorded Sex Assigned at Not on file Legal Sex Male 9:08 AM [facility] Gender Identity Not on file [...] Description 01/03/2025 1:40 PM CDT Office Visit [facility] [address], [address] [place] [address] Rosemary Hugo, NEON SIGN MECHANIC [address] [facility] 1 [place] [address] documented as of this encounter Visit Diagnoses Not on filedocumented in this encounter Care Teams Phlebotomy Instructor Relationship Specialty Start Date End Date Orlando Lara MD [address] [facility] [address] [place] [address] PCP - General 09/07/24 documented as of this encounter
--- OUTSIDE RECORDS SUMMARY | 2024-12-23 17:12 | XMS_ITS | Encounter Summary ---
Author Organization [facility] Healthcare Address [address] [place] [address] Care Team Providers Care Salvage Diver Name Role Phone Soraya Jauregui MD Primary Care Provider Encounter Details Date Type Department Care Team (Late st Contact Info) Description 12/23/2024 Telephone [facility] Medical Group Cardiology [address] [facility] [address] [place] [address] Orlando Porter MD [address] [place] [address] Social History Tobacco Use Types Packs/Day Years Used Date Smoking Tobacco: Former Cigarettes Q uit: 08/03/2024 Alcohol Use Standard Drinks/Week Comments Yes 0 (1 standard drink = 0.6 oz pur e alcohol) [facility] Utilities Answer Date Recorded In the past 12 months has [employer] electric, gas, oil, or water company threatened [...] How often do you attend chur or mormon services? Patient unable to answer 11/10/2024 Do you belong to any clubs o r organizations such as presybeterian groups, unions, fraternal or athletic groups, or [...] any time in the past 12 m [facility], were you homeless or living in a jail (including now)? Patient unable to answer 11/10/2024 Personal Safety Answer Date Recorded Have you ever been in or are you currently in a harmful physical or emotional relationship or is someone making you feel afraid or unsafe? 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 Please send to [facility] in [place], [place]. Thank you. Contact: documented in this encounter Plan of Treatment Upcoming Encounters Date Type Department Care Team (Late st Contact Info) Description 01/03/2025 7:30 AM CDT Hospital Encounter [facility] Operating Room 1 [place] [address] Jon Pope MD PhD [address] [place] [address] 01/03/2025 7:30 AM CDT Anesthesia Event [facility] Operating Room [address] [place] [address] China Mercado NP [address] [facility] [phone] [place] [address] 01/03/2025 7:30 AM CDT - 01/03/2025 11:15 AM CDT Surgery [facility] Operating Room [address] [place] [address] Jon Pope MD PhD [address] [place] [address] CREATION ARTERIOVENOUS FISTULA - ARM Scheduled Procedures Name Priority Associated Diagnoses Date/Ti me CREATION ARTERIOVENOUS FISTULA - ARM ESRD (end stage renal disease) ([facility]) 01/03/2025 7:30 AM CDT ARTERIOVENOUS GRAFT - LOWER EXTREMITY ESRD (end stage renal disease) ([facility]) 01/03/2025 7:30 AM CDT documented as of this encounter Visit Diagnoses Not on filedocumented in this encounter Care Teams Salvage Diver Relationship Specialty Start Date End Date Soraya Jauregui MD [address] [place] [id number] PCP - General Internal Medicine 03/29/24 documented as of this encounter
--- OUTSIDE RECORDS SUMMARY | 2024-12-23 17:12 | XMS_ITS | Referral Summary ---
Author Organization [facility] [address] [facility] [address] Address [address] [facility] 162 [place] [address] Care Team Providers Care Gis Professor Name Role Phone Soraya Jauregui MD Primary Care Provider Encounters Date Type Department Care Team Description 5 Telephone [facility] Medical [facility] Cardiology [address] [facility] [address] [place] [address] Orlando Porter MD 5 1:30 PM CDT Office Visit [facility] Cardiology [address] [facility] [address] [place] [address] Orlando Porter MD History of coronary artery stent placement (Primary Dx); Coronary artery disease of [place] artery of [place] heart with stable angina pectoris; Longstanding persistent atrial fibrillation (HCC) 5 Telephone [facility] Surgery [address] [facility] Advanced Medicine 12th [place] [address] [place] [phone] Jon Pope MD PhD 5 Telephone [facility] Surgery [address] [facility] 12th [place] [address] [place] [address] Jon Pope MD PhD 5 2:00 PM CDT Office Visit [facility] Surgery [address] [facility] 12th [place] [address] [place] [address] 5 1:45 PM CDT Office Visit [facility] Surgery [address] [facility] 12th [place] [address] [place] [address] Jon Pope MD PhD ESRD on hemodialysis (HCC) (Primary Dx); ESRD on dialysis (HCC); CKD (chronic kidney disease), stage V (HCC) 5 Telephone [facility] Pulmonary [address] [place] [address] Rigoberto Croft MD Request For Order(s) 5 3:39 PM CDT - 5 11:59 PM CDT Hospital Encounter [facility] Respiratory Therapy [address] [place] [address] Simple chronic bronchitis (HCC) Discharge Disposition: Discharge to home or self care 5 1:00 PM CDT Office Visit [facility] Primary Care [address] [facility] [address] [place] [address] Jackie Umanzor NP CAP (community acquired pneumonia) [...] adult 5 12:15 PM CDT Office Visit [address] [place] [address] Rigoberto Croft MD Simple chronic bronchitis (HCC) (Primary Dx); Dyspnea on exertion; Chronic systolic congestive heart failure (HCC) 5 10:00 AM CDT Office Visit [facility] Cardiology [address] [facility] [address] [place] [phone] Rosi Corrales NP Atrial fibrillation, unspecified type (HCC) (Primary Dx); Chronic systolic congestive heart failure (HCC); Coronary artery disease involving [place] coronary artery of [place] heart without angina pectoris; Hemodialysis-associated hypotension; CKD (chronic kidney disease), stage V (HCC) 5 Telephone [facility] Surgery [address] [facility] 12th [place] [address] [place] [address] Jon Pope MD PhD 5 Telephone [facility] Primary Care [address] [place] [address] [place] [phone] Soraya Jauregui MD Appointment Request [address] [place] [address] Maxine Sr RN 5 12:00 PM CDT Home Care Visit [address] [place] [address] Eloina Corbin, IVANNA SN HOSPICE TELEPHONE VISIT 5 Telephone [facility] Primary Care [address] [place] [address] [place] [phone] Soraya Jauregui MD Medical Question/Miscellaneous; Palliative Care Follow-up 5 Telephone [facility] Primary Care [address] [place] [address] [place] [phone] Soraya Jauregui MD Appointment Request 5 [facility] Subsequent Outreach [facility] [address] [place] [address] Bebeto Kelly, RN 5 2:23 PM CDT - 5 2:52 PM CDT Hospital Encounter [address] [address] Jonathan Lentz DO Bezuneh, MD Eliel Robertson, MD Amara Romo, MD Mayte Liz, MD Joesph Baez, MD Kev Balnco, Chas Jackson MD Shortness of breath (Primary [...] 11:30 AM CDT - 5 12:30 PM [facility] Cardiac Cpht [address] [place] [address] Lucius Jauregui MD INSERT TUNNELED CV CATH W/PORT OR PUMP >5YO [id number] 5 9:30 AM CDT - 5 10:30 AM [facility] Cardiac Cpht [address] [place] [address] Lucius Jauregui MD INSERT TUNNELED CV CATH W/PORT OR PUMP >5YO [address] 5 TCC Initial Eligibility Review [facility] [address] [place] [address] Bebeto Kelly RN 5 Telephone [facility] Primary Care [address] [place] [phone] Soraya Jauregui MD from Last 3 [...] artery disease of n ative artery of [place] heart with stable angina pectoris 03/21/2024 Chronic obstructive pulmonary disease 03/21/2024 CKD (chronic kidney disease), stage V 03/21/2024 Secondary hyperparathyroidism of renal origin Asymptomatic stenosis of left carotid artery Assessment & Plan (09/01/2024 10:18 AM TRAVELING OPERATOR): [id number] 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 Patient unable to answer 11/10/2024 Do you belong to any clubs o r organizations such as mormon groups, unions, fraternal or athletic groups, or [...] any time in the past 12 m [facility], were you homeless or living in a correction (including now)? Patient unable to answer 11/10/2024 Personal Safety Answer Date Recorded Have you ever been in or are you currently in a harmful physical or emotional relationship or is someone making you feel afraid or unsafe? Denies 10/21/2024 Sex and Gender Information Value Date Recorded Sex Assigned at Not on file Legal Sex Male 8:02 PM TRAVELING OPERATOR Gender Identity Not on file Sexual [...] Description 01/03/2025 7:30 AM CDT Hospital Encounter [facility] Operating Room [address] [place] [address] Jon Pope MD PhD [address] [place] [address] 01/03/2025 7:30 AM CDT Anesthesia Event [facility] [address] [place] [address] China Mercado, WOOD GRINDER OPERATOR [address] [facility] [phone] [place] [address] 01/03/2025 7:30 AM CDT - 01/03/2025 11:15 AM CDT Surgery [facility] [address] [place] [address] Jon Pope MD PhD [address] [place] [address] CREATION ARTERIOVENOUS FISTULA - ARM Scheduled Procedures Name Priority Associated Diagnoses Date/Ti me CREATION ARTERIOVENOUS FISTULA - ARM ESRD (end stage renal disease) ([facility]) 01/03/2025 7:30 AM CDT ARTERIOVENOUS GRAFT - LOWER EXTREMITY ESRD (end stage renal disease) ([facility]) 01/03/2025 7:30 AM CDT Medical Devices Implanted Type Area Medical Practice Administrator Device Identifier Shelf Expiration Date Model / Serial / Lot [employer] Mahurkar Elite Double-D 12fr 24cm 2 Lumen Atraumatic Tip [id number] - [id number] Implanted:Qty: 1 on 10/21/2024 by Lucius Jauregui MD at [facility] Snappy shuttle [facility] [id number] / / [place] Peripheral Vascular Kit Catheter Hemodialysis Dual Lumen Straight Skilled Nursing Polyurethane Glidepath [id number] - [id number] Implanted:Qty: 1 on 10/25/2024 by Lucius Jauregui MD at [facility] Peripheral Vascular [id number] / / Procedures Procedure Name Priority Date/Time [...] TUNNELED CV CATH W/PORT OR PUMP >5YO [address] Routine 10/25/2024 11:38 AM CDT CKD (chronic [...] PM CDT Acute hypoxic respiratory failure (HCC) AL INSJ NON-TUNNELED CENTRAL VENOUS CATH AGE 5 [...] TUNNELED CV CATH W/PORT OR PUMP >5YO [id number] Routine 10/21/2024 10:01 AM CDT CKD (chronic [...] FVC POST 4.06 3.52 - 6.12 L [facility] FEV1 POST 1.95(A) 2.52 - 4.52 L [facility] [id number] 48.03(A) 60.59 - 86.91 % [facility] IYE37-10% POST 0.68(A) 1.02 - 4.65 L/s [facility] PEF POST 3.36(A) 6.67 - 10.66 L/s [facility] DLCOc SB 8.46(A) 23.68 - 37.54 ml/(min*mm Hg) [facility] DLCO/VA PRE 1.70(A) 2.75 - 4.77 ml/(min*mm Hg*L) [facility] VA 4.99(A) 7.99 - 7.99 L [facility] TLC PRE 8.85 6.99 - 9.29 L [facility] VC PRE 3.88(A) 3.98 - 5.82 L [facility] IC PRE 2.83(A) 3.76 - 3.76 L [facility] FRC PL PRE 6.02(A) 3.05 - 5.02 L [facility] ERV PRE 1.05(A) 1.14 - 1.14 L [facility] RV PRE 4.97(A) 2.22 - 3.57 L [facility] VTG 6.09 L [facility] RAW PRE 4.02(A) 3.06 - 3.06 cmH2O*s/L [facility] FVC PRE 3.88 3.52 - 6.12 L [facility] FEV1 PRE 1.94(A) 2.52 - 4.52 L [facility] [id number] 50.01(A) 60.59 - 86.91 % [facility] DTW70-46% PRE 0.49(A) 1.02 - 4.65 L/s [facility] PEF PRE 3.40(A) 6.67 - 10.66 L/s [facility] Anatomical Region Laterality Modality PFT 11/22/2024 [...] correlation. Electronically signed by Temo Chaves MD, [facility] Pul[facility] Critical [facility] Medicine [facility] Rigoberto Croft MD PFT ORDERABLES [...] LAB BLOOD ORDERABLES Fin al Result [facility]EL [address] [facility] Department [place] [address] * (ABNORMAL) Differential, auto (10/27/2024 2:44 AM CDT) Pathologist [facility] Neutrophil abs 24.2(H) 1.5 - 6.5 K/cumm Imm gran abs 1.2(H) 0.0 - 0.1 K/cumm [facility] Lymphocyte abs 1.9 0.8 - 3.3 K/cumm [facility] Monocyte abs 1.3(H) 0.2 - 0.8 K/cumm [facility] Eosinophil abs 0.1 0.0 - 0.5 K/cumm [facility] Basophil abs 0.1 0.0 - 0.1 K/cumm [facility] Neutrophil pct 84.2 % [facility] Comment: Interpretive Data Percent cell count reference ranges are not reported, since discordance with absolute values may lead to misinterpretation of CBC data. Current Interpretive Data was last revised on 2017. Imm gran pct 4.1 % [facility] Comment: Interpretive Data Percent cell count reference ranges are not reported, since discordance with absolute values may lead to misinterpretation of CBC data. Current Interpretive Data was last revised on 2017. Lymphocyte pct 6.5 % [facility] Comment: Interpretive Data Percent cell count reference ranges are not reported, since discordance with absolute values may lead to misinterpretation of CBC data. Current Interpretive Data was last revised on 2017. Monocyte pct 4.5 % [facility] Comment: Interpretive Data Percent cell count reference ranges are not reported, since discordance with absolute values may lead to misinterpretation of CBC data. Current Interpretive Data was last revised on 2017. Eosinophil pct 0.2 % [facility] Comment: Interpretive Data Percent cell count reference ranges are not reported, since discordance with absolute values may lead to misinterpretation of CBC data. Current Interpretive Data was last revised on 2017. Basophil pct 0.5 % [facility] Comment: Interpretive Data Percent cell count reference ranges are not reported, since discordance with absolute values may lead to misinterpretation of CBC data. Current Interpretive Data was last revised on 2017. Blood 10/27/2024 2:4 4 AM CDT 10/27/2024 2:56 AM CDT Barbara Collins MD LAB BLO OD ORDERABLES Final Result Performing Organization Address [facility] Co de Phone Number [place] [phone] [facility] Department of Laboratories [place], [place] [phone] * (ABNORMAL) CBC with auto differential (10/27/2024 2:44 AM CDT) WBC 28.7(H) 3.8 - 9.9 K/cumm Hgb 10.1(L) 13.0 - 17.5 g/dL [facility] Hct 34.7(L) 38.9 - 50.3 % [facility] Plt 298 150 - 400 K/cumm [facility] MPV 10.3 9.1 - 12.3 fL [facility] RBC 3.44(L) 4.30 - 5.80 M/cumm [facility] MCV 100.9(H) 81.3 - 96.4 fL [facility] MCH 29.4 27.1 - 33.3 pg [facility] MCHC 29.1(L) 32.3 - 35.7 g/dL [facility] RDW CV 16.1(H) 11.1 - 14.9 % [facility] RDW SD 58.0(H) 35.7 - 48.1 fL [facility] NRBC abs 0.04(H) 0.00 - 0.01 K/cumm [facility] Blood 10/27/2024 2:44 AM CDT 10/27/2024 2:56 AM CDT Barbara Collins MD LAB BLO OD ORDERABLES Final Result Performing Organization Address City/[facility] Co de Phone Number [facility]EL [address] [place] [address] * (ABNORMAL) Basic metabolic panel (10/27/2024 2:44 AM CDT) [facility] Sodium 136 135 - 145 mmol/L Potassium, pl 4.8 3.3 - 4.9 mmol/L [facility] Chloride 100 97 - 110 mmol/L [facility] CO2 17(L) 22 - 32 mmol/L [facility] Anion gap 19(H) 2 - 15 mmol/L [facility] BUN 93(H) 6 - 25 mg/dL [facility] Creatinine 6.56(H) 0.80 - 1.30 mg/dL [facility] Glucose 115 70 - 199 mg/dL [facility] Comment: Interpretive Data Fasting glucose >/= [...] Calcium 8.2(L) 8.5 - 10.3 mg/dL [facility] Blood 10/27/2024 2:44 AM CDT 10/27/2024 2:57 AM CDT Carmen Walter MD LAB BLOOD ORDERABLES Fin al Result [address] [place] [address] * (ABNORMAL) eGFR (10/26/2024 2:55 AM CDT) [facility] eGFR 9(L) >=60 mL/min/1. 73 m2 Comment: [...] Jones MD LAB BLOOD ORDERABLES Final Result [place] [id number] [facility] Department [place] [address] * (ABNORMAL) Differential, auto (10/26/2024 2:55 AM CDT) Pathologist [facility] Neutrophil abs 23.2(H) 1.5 - 6.5 K/cumm Imm gran abs 1.5(H) 0.0 - 0.1 K/cumm [facility] Lymphocyte abs 2.2 0.8 - 3.3 K/cumm [facility] Monocyte abs 1.2(H) 0.2 - 0.8 K/cumm [facility] Eosinophil abs 0.0 0.0 - 0.5 K/cumm [facility] Basophil abs 0.1 0.0 - 0.1 K/cumm [facility] Neutrophil pct 82.2 % [facility] Comment: Interpretive Data Percent cell count reference ranges are not reported, since discordance with absolute values may lead to misinterpretation of CBC data. Current Interpretive Data was last revised on 2017. Imm gran pct 5.3 % [facility] Comment: Interpretive Data Percent cell count reference ranges are not reported, since discordance with absolute values may lead to misinterpretation of CBC data. Current Interpretive Data was last revised on 2017. Lymphocyte pct 7.7 % [facility] Comment: Interpretive Data Percent cell count reference ranges are not reported, since discordance with absolute values may lead to misinterpretation of CBC data. Current Interpretive Data was last revised on 2017. Monocyte pct 4.4 % [facility] Comment: Interpretive Data Percent cell count reference ranges are not reported, since discordance with absolute values may lead to misinterpretation of CBC data. Current Interpretive Data was last revised on 2017. Eosinophil pct 0.1 % [facility] Comment: Interpretive Data Percent cell count reference ranges are not reported, since discordance with absolute values may lead to misinterpretation of CBC data. Current Interpretive Data was last revised on 2017. Basophil pct 0.3 % [facility] Comment: Interpretive Data Percent cell count reference ranges are not reported, since discordance with absolute values may lead to misinterpretation of CBC data. Current Interpretive Data was last revised on 2017. Blood 10/26/2024 2:55 AM CDT 10/26/2024 3:32 AM CDT Barbara Collins MD LAB BLO OD ORDERABLES Final Result [facility] [address] [facility] Department of Laboratories [place], [place] [phone] * (ABNORMAL) CBC with auto differential (10/26/2024 2:55 AM CDT) WBC 28.2(H) 3.8 - 9.9 K/cumm Hgb 9.7(L) 13.0 - 17.5 g/dL [facility] Hct 30.2(L) 38.9 - 50.3 % [facility] Plt 414(H) 150 - 400 K/cumm [facility] MPV 9.7 9.1 - 12.3 fL [facility] RBC 3.22(L) 4.30 - 5.80 M/cumm [facility] MCV 93.8 81.3 - 96.4 fL [facility] MCH 30.1 27.1 - 33.3 pg [facility] MCHC 32.1(L) 32.3 - 35.7 g/dL [facility] RDW CV 15.5(H) 11.1 - 14.9 % [facility] RDW SD 52.6(H) 35.7 - 48.1 fL [facility] NRBC abs 0.02(H) 0.00 - 0.01 K/cumm [facility] Blood 10/26/2024 2:55 AM CDT 10/26/2024 3:32 AM CDT Barbara Collins MD LAB BLO OD ORDERABLES Final Result [facility] [address] [facility] Department [place] [address] * (ABNORMAL) Basic metabolic panel (10/26/2024 2:55 AM CDT) Sodium 139 135 - 145 mmol/L Potassium, pl 4.7 3.3 - 4.9 mmol/L [facility] Chloride 98 97 - 110 mmol/L [facility] CO2 28 22 - 32 mmol/L [facility] Anion gap 13 2 - 15 mmol/L [facility] BUN 79(H) 6 - 25 mg/dL [facility] Creatinine 5.97(H) 0.80 - 1.30 mg/dL [facility] Glucose 107 70 - 199 mg/dL [facility] Comment: Interpretive Data Fasting glucose >/= [...] Calcium 9.1 8.5 - 10.3 mg/dL [facility] Blood 10/26/2024 2:55 AM CDT 10/26/2024 3:31 AM CDT us Uday Jones MD LAB BLOOD ORDERABLES Final Result [facility] [address] [facility] [place] [address] * CT Chest Abdomen Pelvis WO Contrast [...] by Jonathan Romero M.D. T: Report ID: [id number] Reading Location: [place] [address] Procedure Note Jonathan Romero MD - 10/25/2024 [...] by Jonathan Romero M.D. T: Report ID: [id number] Reading Location: [place] [address] us Jah Vargas MD IM CT PROCEDURES [...] CDT 10/25/2024 1:13 PM CDT Narrative [facility] - 10/25/2024 1:23 PM CDT Baseline prior to apixaban initiation. Carlos Castro MD LAB BLOOD ORDERABLES F inal Result Performing Organization Address [facility] Co de Phone Number [address] [employer] [place], [place] [phone] * (ABNORMAL) Hepatic function panel (10/25/2024 1:04 PM CDT) Pathologist [facility] Bilirubin, total 0.4 0.1 - 1.2 mg/dL Bilirubin, direct 0.2 0.1 - 0.3 mg/dL [facility] Protein, pl 6.4(L) 6.5 - 8.5 g/dL [facility] Albumin 3.5 3.5 - 5.0 g/dL [facility] Alk phos 73 40 - 130 Units/L [facility] ALT 30 7 - 55 Units/L [facility] AST 23 10 - 50 Units/L [facility] Blood 10/25/2024 1:04 PM CDT 10/25/2024 1:13 PM CDT Narrative [facility] - 10/25/2024 1:36 PM CDT Baseline prior to apixaban initiation. Carlos Castro MD LAB BLOOD ORDERABLES F inal Result Performing Organization Address [facility] Co de Phone Number [address] [employer] [place], [place] [phone] * XR Chest 1 View (10/25/2024 12:25 [...] signed by Oliverio GREENE T: Report ID: [id number] Reading Location: [place] [address] Procedure Note Oliverio Steinberg MD - 10/25/2024 [...] Oliverio Steinberg M.D. LB T: Report ID: [id number] Reading Location: [id number] Lucius Jauregui MD IMG XR PROCEDURES Final Result * INSERT TUNNELED CV CATH W/PORT OR PUMP >5YO [id number] (10/25/2024 11:38 AM CDT) Anatomical Region Laterality [...] LAB BLOOD ORDERABLES Final Resul t [facility] [address] [facility] [place] [address] * Heparin anti factor Xa [...] 10/25/2024 5:19 AM CDT us Bonita Johnson WOOD GRINDER OPERATOR LAB BLOOD ORDERABLES Cherise l Result Performing Organization Address [facility] Co de Phone Number PAVEL [address] [place] [address] * (ABNORMAL) eGFR (10/25/2024 3:26 AM CDT) Pathologist [facility] eGFR 11(L) >=60 mL/min/1. 73 m2 Comment: [...] ORDERABLES Fin al Result Performing Organization Address City/[facility]/ZIP Co de Phone Number [address] [place] [address] * (ABNORMAL) Differential, auto (10/25/2024 3:26 AM CDT) Pathologist [facility] Neutrophil abs 24.9(H) 1.5 - 6.5 K/cumm Imm gran abs 2.8(H) 0.0 - 0.1 K/cumm [facility] Lymphocyte abs 1.8 0.8 - 3.3 K/cumm [facility] Monocyte abs 1.0(H) 0.2 - 0.8 K/cumm [facility] Eosinophil abs 0.0 0.0 - 0.5 K/cumm [facility] Basophil abs 0.2(H) 0.0 - 0.1 K/cumm [facility] Neutrophil pct 81.3 % [facility] Comment: Interpretive Data Percent cell count reference ranges are not reported, since discordance with absolute values may lead to misinterpretation of CBC data. Current Interpretive Data was last revised on 2017. Imm gran pct 9.1 % [facility] Comment: Interpretive Data Percent cell count reference ranges are not reported, since discordance with absolute values may lead to misinterpretation of CBC data. Current Interpretive Data was last revised on 2017. Lymphocyte pct 5.8 % [facility] Comment: Interpretive Data Percent cell count reference ranges are not reported, since discordance with absolute values may lead to misinterpretation of CBC data. Current Interpretive Data was last revised on 2017. Monocyte pct 3.1 % [facility] Comment: Interpretive Data Percent cell count reference ranges are not reported, since discordance with absolute values may lead to misinterpretation of CBC data. Current Interpretive Data was last revised on 2017. Eosinophil pct 0.1 % [facility] Comment: Interpretive Data Percent cell count reference ranges are not reported, since discordance with absolute values may lead to misinterpretation of CBC data. Current Interpretive Data was last revised on 2017. Basophil pct 0.6 % [facility] Comment: Interpretive Data Percent cell count reference ranges are not reported, since discordance with absolute values may lead to misinterpretation of CBC data. Current Interpretive Data was last revised on 2017. Blood 10/25/2024 3:26 AM CDT 10/25/2024 3:38 AM CDT us Matteo Julian MD LAB BLOOD ORDERABLES Cherise l Result Performing Organization Address [facility]/ZIP Co de Phone Number PAVEL [address] [place] [address] * (ABNORMAL) CBC with auto differential (10/25/2024 3:26 AM CDT) [facility] WBC 30.5(H) 3.8 - 9.9 K/cumm Hgb 10.0(L) 13.0 - 17.5 g/dL [facility] Hct 32.0(L) 38.9 - 50.3 % [facility] Plt 285 150 - 400 K/cumm [facility] MPV 9.9 9.1 - 12.3 fL [facility] RBC 3.35(L) 4.30 - 5.80 M/cumm [facility] MCV 95.5 81.3 - 96.4 fL [facility] MCH 29.9 27.1 - 33.3 pg [facility] MCHC 31.3(L) 32.3 - 35.7 g/dL [facility] RDW CV 15.6(H) 11.1 - 14.9 % [facility] RDW SD 53.7(H) 35.7 - 48.1 fL [facility] NRBC abs 0.02(H) 0.00 - 0.01 K/cumm [facility] Blood 10/25/2024 3:26 AM CDT 10/25/2024 3:38 AM CDT us Barbara Collins MD LAB BLO OD ORDERABLES Final Result [facility] [address] [place] [address] * (ABNORMAL) Basic metabolic panel (10/25/2024 3:26 AM CDT) [facility] Sodium 137 135 - 145 mmol/L Potassium, pl 5.6(H) 3.3 - 4.9 mmol/L [facility] Comment:Hemolyzed; Potassium value may be falsely elevated by as much as 1.0 mmol/L. Suggest redraw and reanalysis. Chloride 100 97 - 110 mmol/L [facility] CO2 20(L) 22 - 32 mmol/L [facility] Anion gap 17(H) 2 - 15 mmol/L [facility] BUN 78(H) 6 - 25 mg/dL [facility] Creatinine 5.26(H) 0.80 - 1.30 mg/dL [facility] Glucose 128 70 - 199 mg/dL [facility] Comment: Interpretive Data Fasting glucose >/= [...] Calcium 8.4(L) 8.5 - 10.3 mg/dL [facility] Blood 10/25/2024 3:26 AM CDT 10/25/2024 3:37 AM CDT Carmen Walter MD LAB BLOOD ORDERABLES Fin al Result [facility] [address] [facility] [place] [address] * Heparin anti factor Xa activity (10/24/2024 11:39 PM CDT) [facility] Anti Factor Xa 0.68 IUnits/mL Comment: Interpretive [...] Final Result Performing Organization Address City/State/ZIP Co pa Phone Number [facility] [address] [facility] [place] [address] * (ABNORMAL) Heparin anti factor Xa activity (10/24/2024 2:55 PM CDT) Anti Factor Xa >1.10(C) IUnits/mL Comment: Critical value. Results called to and read back by: Critical Result called to and read back by [email or web address], DATE: 2024-10-24 15:38:22 BY: [id number] Interpretive Data Enoxaparin therapeutic range (peak): VTE [...] ORDERABLE S Final Result Performing Organization Address [facility] de Phone Number [address] [address] * Hepatitis B core antibody, total Blood (10/24/2024 2:55 PM CDT) [facility] Hep B core IgG/IgM Nonreactive Nonreactive Comment:Testing performed by : [facility], [address] [place] [address]., [id number] Blood 10/24/2024 2:55 PM CDT 10/24/2024 5:23 PM CDT Result [facility] Milana Maloney MD LAB MICROBIOLOGY - GENERAL ORDERABLES Final Result Performing Organization Address [facility] de Phone Number [address] [address] * Hepatitis B (HBV) DNA PCR, quantitative Blood (10/24/2024 2:55 PM CDT) [facility] HBV DNA Result Not Detected [facility] Comment: The quantifiable range of this assay is 10 IU/mL to 1,000,000,000 IU/mL (1.00 log IU/mL to 9.00 log IU/mL). Testing was performed by the [employer]IE[employer] [id number] HBV Test version 2.0 ([employer] Testing performed at [facility] Current Interpretive Data was last revised on 2021. Testing performed by: [facility], [address] [place]., [address] Blood 10/24/2024 2:55 PM CDT 10/24/2024 7:39 PM CDT Milana Maloney MD LAB MICROBIOLOGY - GENERAL ORDERABLES Final Result Performing Organization Address [facility] Co de Phone Number [address] [address] [facility] * Hepatitis B Surface Antigen Blood (10/24/2024 2:55 PM CDT) HepBsAg Nonreactive Nonreactive Blood 10/24/2024 2:55 PM CDT 10/24/2024 3:10 PM CDT Milana Maloney MD LAB MICROBIOLOGY - GENERAL ORDERABLES Final Result Performing Organization Address [facility] de Phone Number [address] [address] * ECG 12 lead (10/24/2024 8:10 AM CDT) Pathologist [facility] Ventricular Rate EKG/Min 83 BPM [facility] QRS-Interval (MSEC) 152 ms [facility] QT-Interval (MSEC) 420 ms [facility] QTc 493 ms [facility] R [place] -86 degrees [facility] T [place] 85 degrees [facility] Diagnosis 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 ([id number]) on 10/24/2024 2:50:52 PM [facility] 10/24/2024 8:10 AM CDT 10/24/2024 2:50 PM CDT August Roger MD ECG ORDERABLES Final R esult [facility] * (ABNORMAL) eGFR (10/24/2024 5:46 [...] ORDERABLES Fin al Result Performing Organization Address City/[facility]/ZIP Co de Phone Number [facility] [place] [address] * Heparin anti factor Xa [...] MD LAB BLOOD ORDERABLE S Final Result [place] [id number] [facility] [place] [address] * (ABNORMAL) CBC with auto differential (10/24/2024 5:46 AM CDT) WBC 40.6(H) 3.8 - 9.9 K/cumm Hgb 9.7(L) 13.0 - 17.5 g/dL [facility] Hct 31.2(L) 38.9 - 50.3 % [facility] Plt 453(H) 150 - 400 K/cumm [facility] MPV 9.6 9.1 - 12.3 fL [facility] RBC 3.33(L) 4.30 - 5.80 M/cumm [facility] MCV 93.7 81.3 - 96.4 fL [facility] MCH 29.1 27.1 - 33.3 pg [facility] MCHC 31.1(L) 32.3 - 35.7 g/dL [facility] RDW CV 15.5(H) 11.1 - 14.9 % [facility] RDW SD 52.6(H) 35.7 - 48.1 fL [facility] NRBC abs 0.04(H) 0.00 - 0.01 K/cumm [facility] Blood 10/24/2024 5:46 AM CDT 10/24/2024 6:08 AM CDT Barbara Collins MD LAB BLO OD ORDERABLES Final Result [facility] [address] [facility] Department [place] [address] * (ABNORMAL) Manual Differential (10/24/2024 5:46 AM CDT) Differential Manual Cells Counted 100 [facility] Neutrophil abs 35.3(H) 1.5 - 6.5 K/cumm [facility] Imm gran abs 2.0(H) 0.0 - 0.1 K/cumm [facility] Lymphocyte abs 2.0 0.8 - 3.3 K/cumm [facility] Monocyte abs 1.2(H) 0.2 - 0.8 K/cumm [facility] Neutrophil pct 87.0 % [facility] Comment: Interpretive Data Percent cell count reference ranges are not reported, since discordance with absolute values may lead to misinterpretation of CBC data. Current Interpretive Data was last revised on 2017. Lymphocyte pct 5.0 % [facility] Comment: Interpretive Data Percent cell count reference ranges are not reported, since discordance with absolute values may lead to misinterpretation of CBC data. Current Interpretive Data was last revised on 2017. Monocyte pct 3.0 % [facility] Comment: Interpretive Data Percent cell count reference ranges are not reported, since discordance with absolute values may lead to misinterpretation of CBC data. Current Interpretive Data was last revised on 2017. Metamyelocyte pct 5.0(H) 0.0 - 0.0 % [facility] RBC morphology Present(A) [facility] Hypochromasia 3-7/HPF(A) [facility] Poikilocytosis Moderate(A) [facility] Macrocytes 3-7/HPF(A) [facility] Elliptocytes 8-15/HPF(A) [facility] Platelet estimate Automated Count Confirmed [facility] Blood 10/24/2024 5:46 AM CDT 10/24/2024 6:08 AM CDT Matteo Julian MD LAB BLOOD ORDERABLES Cherise l Result Performing Organization Address City/[facility]/ZIP Co de Phone Number [address] [place] [address] * (ABNORMAL) Basic metabolic panel (10/24/2024 5:46 AM CDT) [facility] Sodium 141 135 - 145 mmol/L Potassium, pl 4.9 3.3 - 4.9 mmol/L [facility] Chloride 99 97 - 110 mmol/L [facility] CO2 26 22 - 32 mmol/L [facility] Anion gap 16(H) 2 - 15 mmol/L [facility] BUN 102(H) 6 - 25 mg/dL [facility] Creatinine 6.14(H) 0.80 - 1.30 mg/dL [facility] Glucose 122 70 - 199 mg/dL [facility] Comment: Interpretive Data Fasting glucose >/= [...] Calcium 9.2 8.5 - 10.3 mg/dL [facility] Blood 10/24/2024 5:46 AM CDT 10/24/2024 6:08 AM CDT Carmen Walter MD LAB BLOOD ORDERABLES Fin al Result Performing Organization Address [facility] Co de Phone Number [address] [place] [address] * Heparin anti factor Xa activity (10/23/2024 [...] ORDERABLES Final R esult Performing Organization Address City/[facility]/ZIP Co de Phone Number [address] [employer] [place], [place] [id number] * (ABNORMAL) BUN (10/23/2024 2:56 PM CDT) BUN 93(H) 6 - 25 mg/dL Blood 10/23/2024 2:56 PM CDT 10/23/2024 3:09 PM CDT Narrative [facility] - 10/23/2024 3:25 PM CDT Pre-Dialysis us Carmen Walter MD LAB BLOOD ORDERABLES Fin al Result [address] [place] [address] * Blood culture Blood (10/23/2024 10:33 AM CDT) Report Final Report: No growth Comment:Testing performed by : [facility], [address] [facility] [place]., [address] Blood 10/23/2024 10:3 3 AM CDT 10/23/2024 [...] performance characteristics have been verified by the [facility]. For questions about this culture, contact the Microbiology Laboratory at [phone]. Interpretive data was last revised on 24. Milana Maloney MD LAB MICROBIOLOGY - GENERAL ORDERABLES Final Result [facility] [address] [facility] Department [place] [address] * Heparin anti factor Xa activity (10/23/2024 [...] LAB BLOOD ORDERABLES Final Result [facility] [place] [address] [facility] [place] [address] * Blood culture Blood (10/23/2024 10:26 AM CDT) Report Final Report: No growth Comment:Testing performed by : [facility], [address] [facility], [place]., [address] Blood 10/23/2024 10:2 6 AM CDT 10/23/2024 [...] performance characteristics have been verified by the [facility]. For questions about this culture, contact the Microbiology Laboratory at [phone]. Interpretive data was last revised on 24. Milana Maloney MD LAB MICROBIOLOGY - GENERAL ORDERABLES Final Result [facility] [address] [facility] [place] [address] * (ABNORMAL) eGFR (10/23/2024 4:53 AM CDT) [...] NP LAB BLOOD ORDERABLES Fi nal Result [facility] [address] [facility] [place] [address] * (ABNORMAL) Differential, auto (10/23/2024 4:53 AM CDT) Neutrophil abs 32.2(H) 1.5 - 6.5 K/cumm Imm gran abs 4.2(H) 0.0 - 0.1 K/cumm [facility] Lymphocyte abs 1.6 0.8 - 3.3 K/cumm [facility] Monocyte abs 1.0(H) 0.2 - 0.8 K/cumm [facility] Eosinophil abs 0.0 0.0 - 0.5 K/cumm [facility] Basophil abs 0.0 0.0 - 0.1 K/cumm [facility] Neutrophil pct 82.4 % [facility] Comment: Interpretive Data Percent cell count reference ranges are not reported, since discordance with absolute values may lead to misinterpretation of CBC data. Current Interpretive Data was last revised on 2017. Imm gran pct 10.8 % [facility] Comment: Interpretive Data Percent cell count reference ranges are not reported, since discordance with absolute values may lead to misinterpretation of CBC data. Current Interpretive Data was last revised on 2017. Lymphocyte pct 4.2 % [facility] Comment: Interpretive Data Percent cell count reference ranges are not reported, since discordance with absolute values may lead to misinterpretation of CBC data. Current Interpretive Data was last revised on 2017. Monocyte pct 2.6 % [facility] Comment: Interpretive Data Percent cell count reference ranges are not reported, since discordance with absolute values may lead to misinterpretation of CBC data. Current Interpretive Data was last revised on 2017. Eosinophil pct 0.0 % [facility] Comment: Interpretive Data Percent cell count [...] ORDERABLES Cherise l Result Performing Organization Address City/[facility] Co de Phone Number [facility] [address] [facility] Department [place] [address] * Heparin anti factor Xa activity (10/23/2024 4:53 AM CDT) Pathologist [facility] Anti Factor Xa 0.16 IUnits/mL Comment: Ref [...] BLOOD ORDERABLES Fi nal Result [facility] [address] [facility] [place] [address] * (ABNORMAL) CBC with auto differential (10/23/2024 4:53 AM CDT) [facility] WBC 39.1(H) 3.8 - 9.9 K/cumm Hgb 9.5(L) 13.0 - 17.5 g/dL [facility] Hct 29.5(L) 38.9 - 50.3 % [facility] Plt 436(H) 150 - 400 K/cumm [facility] MPV 9.3 9.1 - 12.3 fL [facility] RBC 3.20(L) 4.30 - 5.80 M/cumm [facility] MCV 92.2 81.3 - 96.4 fL [facility] MCH 29.7 27.1 - 33.3 pg [facility] MCHC 32.2(L) 32.3 - 35.7 g/dL [facility] RDW CV 15.2(H) 11.1 - 14.9 % [facility] RDW SD 50.6(H) 35.7 - 48.1 fL [facility] NRBC abs 0.05(H) 0.00 - 0.01 K/cumm [facility] Blood 10/23/2024 4:53 AM CDT 10/23/2024 5:05 AM CDT us Barbara Collins MD LAB BLO OD ORDERABLES Edited Result - Final [facility] [address] [facility] [place] [address] * Manual Differential (10/23/2024 4:53 AM CDT) Pathologist [facility] Differential Auto RBC morphology Consistent with RBC Indicies [facility] Platelet estimate Automated Count Confirmed [facility] Blood 10/23/2024 4:53 AM CDT 10/23/2024 5:05 AM CDT us Matteo Julian MD LAB BLOOD ORDERABLES Cherise l Result Performing Organization Address [facility] Co de Phone Number [address] [address] * (ABNORMAL) Phosphorus (10/23/2024 4:53 AM CDT) [facility] Phosphorus, pl 5.0(H) 2.3 - 4.5 mg/dL Blood 10/23/2024 4:53 AM CDT 10/23/2024 5:05 AM CDT Orlando Mclean NP LAB BLOOD ORDERABLES Fi nal Result Performing Organization Address [facility] Co de Phone Number [address] [address] * Magnesium (10/23/2024 4:53 AM CDT) [facility] Magnesium 1.9 1.4 - 2.5 mg/dL Blood 10/23/2024 4:53 AM CDT 10/23/2024 5:05 AM CDT Orlando Mclean NP LAB BLOOD ORDERABLES Fi nal Result Performing Organization Address [facility] Co de Phone Number [address] [address] * (ABNORMAL) Comprehensive metabolic panel (10/23/2024 4:53 AM CDT) [facility] Sodium 140 135 - 145 mmol/L Potassium, pl 4.5 3.3 - 4.9 mmol/L [facility] Chloride 100 97 - 110 mmol/L [facility] CO2 24 22 - 32 mmol/L [facility] Anion gap 16(H) 2 - 15 mmol/L [facility] BUN 80(H) 6 - 25 mg/dL [facility] Creatinine 5.27(H) 0.80 - 1.30 mg/dL [facility] Glucose 140 70 - 199 mg/dL [facility] Comment: Interpretive Data Fasting glucose >/= [...] Calcium 8.5 8.5 - 10.3 mg/dL [facility] Bilirubin, total 0.3 0.1 - 1.2 mg/dL [facility] Protein, pl 5.8(L) 6.5 - 8.5 g/dL [facility] Albumin 3.0(L) 3.5 - 5.0 g/dL [facility] Alk phos 78 40 - 130 Units/L [facility] ALT 57(H) 7 - 55 Units/L [facility] AST 33 10 - 50 Units/L [facility] Blood 10/23/2024 4:53 AM CDT 10/23/2024 5:05 AM CDT us Orlando Mclean NP LAB BLOOD ORDERABLES nal Result [facility] [place] [address] * US Vein Mapping Duplex Upper Extremity Bilateral (10/22/2024 5:21 PM CDT) Anatomical Region Laterality Modality Vascular Bilateral Ultrasound 10/22/2024 4:17 PM CDT Narrative 10/25/2024 11:32 AM CDT Upper Extremity Vein Mapping Report Patient Name: LAMIN BETTS Account #: : [id number] ([id number]) Gender: M Study Date: 10/22/2024 04:17:45 PM Accession #: [employer]: Yocasta Hebert Quality: Adequate Ref Provider: PROCEDURES: [...] Study Date: 10/22/2024 04:17:45 PM Accession #: [employer]: Yocasta Hebert Quality: Adequate Ref Provider: PROCEDURES: [...] Thomas Simons M.D. RW T: Report ID: [id number] Reading Location: [id number] Procedure Note Thomas Simons MD - 10/22/2024 [...] Thomas Simons M.D. RW T: Report ID: [id number] Reading Location: [id number] Orlando Mclean NP IMG XR PROCEDURES Final Result * Critical Care (10/22/2024 3:18 PM CDT) Narrative Ricardo Hu MD - 10/22/2024 3:18 PM CDT Ricardo Hu MD 10/23/2024 9:59 AM Critical Care Performed by: Orlando Mclean NP Authorized by: Orlando Mclean NP CRITICAL CARE: Team: [facility] Shift: AM Level of Billing: Critical Care [...] plan with the ICU team and other medical/citrix consultant staff, making frequent assessments and decisions [...] in the medical record us Orlando Mclean WOOD GRINDER OPERATOR IN CLINIC/BEDSIDE ORDER SARAH Final Result * AL INSJ NON-TUNNELED CENTRAL VENOUS CATH AGE 5 YR/> (10/22/2024 3:15 PM CDT) Narrative Ricardo Hu MD - 10/22/2024 3:15 PM CDT Ricardo Hu MD 10/23/2024 9:59 AM Central Line Insertion Date/Time: 10/22/2024 3:15 PM Performed by: Orlando Mclean NP Authorized by: Ricardo Hu MD [place] Protocol: RN Notified of Procedure: yes Informed [...] and matched to patient identification: n/a Responsible alliance party for transporting specimen(s) to lab determined: [...] by Orlando Doherty M.D. T: Report ID: [id number] Reading Location: [id number] Procedure Note Orlando Doherty, DO - 10/22/2024 [...] by Orlando Doherty M.D. T: Report ID: [id number] Reading Location: [place] [address] us Milana Maloney MD IMG XR PROCEDURES F inal Result * (ABNORMAL) BUN (10/22/2024 11:48 AM CDT) BUN 100(H) 6 - 25 mg/dL Blood 10/22/2024 11:4 8 AM CDT 10/22/2024 12:38 PM CDT Narrative [facility] - 10/22/2024 1:07 PM CDT Pre-Dialysis us dUay Jones MD LAB BLOOD ORDERABLES Final Result [facility] [address] [facility] [place] [address] * (ABNORMAL) eGFR (10/22/2024 6:32 [...] MD LAB BLOOD ORDERABLES Final Result [facility] [address] [facility] [place] [address] * Heparin anti factor Xa activity (10/22/2024 6:32 AM CDT) Anti Factor Xa <0.10 IUnits/mL Comment: Patient not on heparin at time of collection per [id number] (RN). 10/22/24 at 0845 by [id number]. Interpretive Data Enoxaparin therapeutic range (peak): VTE [...] l Result Performing Organization Address [facility]/ZIP Co de Phone Number [address] [place] [address] * (ABNORMAL) CBC with auto differential (10/22/2024 6:32 AM CDT) [facility] WBC 36.2(H) 3.8 - 9.9 K/cumm Hgb 10.5(L) 13.0 - 17.5 g/dL [facility] Hct 34.0(L) 38.9 - 50.3 % [facility] Plt 514(H) 150 - 400 K/cumm [facility] MPV 9.4 9.1 - 12.3 fL [facility] RBC 3.63(L) 4.30 - 5.80 M/cumm [facility] MCV 93.7 81.3 - 96.4 fL [facility] MCH 28.9 27.1 - 33.3 pg [facility] MCHC 30.9(L) 32.3 - 35.7 g/dL [facility] RDW CV 15.3(H) 11.1 - 14.9 % [facility] RDW SD 52.9(H) 35.7 - 48.1 fL [facility] NRBC abs 0.16(H) 0.00 - 0.01 K/cumm [facility] Blood 10/22/2024 6:32 AM CDT 10/22/2024 7:06 AM CDT us Barbara Collins MD LAB BLO OD ORDERABLES Edited Result - Final [address] [address] * (ABNORMAL) Manual Differential (10/22/2024 6:32 AM CDT) [facility] Differential Manual Cells Counted 100 [facility] Neutrophil abs 29.7(H) 1.5 - 6.5 K/cumm [facility] Imm gran abs 4.0(H) 0.0 - 0.1 K/cumm [facility] Lymphocyte abs 2.5 0.8 - 3.3 K/cumm [facility] Monocyte abs 0.0(L) 0.2 - 0.8 K/cumm [facility] Neutrophil pct 82.0 % [facility] Comment: Interpretive Data Percent cell count reference ranges are not reported, since discordance with absolute values may lead to misinterpretation of CBC data. Current Interpretive Data was last revised on 2017. Lymphocyte pct 4.0 % [facility] Comment: Interpretive Data Percent cell count reference ranges are not reported, since discordance with absolute values may lead to misinterpretation of CBC data. Current Interpretive Data was last revised on 2017. Metamyelocyte pct 11.0(H) 0.0 - 0.0 % [facility] Variant lymph pct 3.0(H) 0.0 - 0.0 % [facility] RBC morphology Present(A) [facility] Hypochromasia 8-15/HPF(A) [facility] Anisocytosis Slight(A) [facility] Microcytes 8-15/HPF(A) [facility] Elliptocytes 3-7/HPF(A) [facility] Platelet estimate Automated Count Confirmed [facility] Blood 10/22/2024 6:32 AM CDT 10/22/2024 7:06 AM CDT us Matteo Julian MD LAB BLOOD ORDERABLES Cherise l Result [facility] [address] [facility] Department of [place] [address] * (ABNORMAL) Basic metabolic panel (10/22/2024 6:32 AM CDT) [facility] Sodium 141 135 - 145 mmol/L Potassium, pl 4.4 3.3 - 4.9 mmol/L [facility] Chloride 98 97 - 110 mmol/L [facility] CO2 25 22 - 32 mmol/L [facility] Anion gap 18(H) 2 - 15 mmol/L [facility] BUN 110(H) 6 - 25 mg/dL [facility] Creatinine 6.30(H) 0.80 - 1.30 mg/dL [facility] Glucose 164 70 - 199 mg/dL [facility] Comment: Interpretive Data Fasting glucose >/= [...] Calcium 9.3 8.5 - 10.3 mg/dL [facility] Blood 10/22/2024 6:32 AM CDT 10/22/2024 7:06 AM CDT Uday Jones MD LAB BLOOD ORDERABLES Final Result [facility] [address] [facility] [place] [address] * ECG 12 lead (10/22/2024 12:45 AM CDT) Ventricular Rate EKG/Min 76 BPM [facility] QRS-Interval (MSEC) 158 ms [facility] QT-Interval (MSEC) 450 ms [facility] QTc 506 ms [facility] R Peabody -80 degrees [facility] T Peabody 86 degrees [facility] Diagnosis Atrial fibrillation Right bundle branch block Left anterior fascicular block Bifascicular block Abnormal ECG When compared with ECG of 19-OCT-2024 12:28, Vent. rate has decreased BY 46 BPM Right bundle branch block has replaced Non-specific intra-ventricul ar conduction block Confirmed by ASHLEY WYNNE M.D. ([id number]) on 10/23/2024 9:23:45 AM [facility] 10/22/2024 12:4 5 AM CDT 10/23/2024 9:23 AM CDT us Michael Claire Hugo WOOD GRINDER OPERATOR ECG ORDERABLES Final Re sult [facility] * (ABNORMAL) Lipid panel (10/21/2024 6:34 PM [...] on 2018. LDL, calculated 58 <=129 mg/dL [facility] Comment: Interpretive Data Ages < or [...] BLOOD ORDERABLE S Final Result [facility] [address] [facility] [place] [address] * INSERT TUNNELED CV CATH W/PORT OR PUMP >[id number] (10/21/2024 10:01 AM CDT) Anatomical Region Laterality [...] LAB BLOOD ORDERABLES Cherise l Result [facility]EL [address] [facility] [place] [address] * Heparin anti factor Xa activity (10/21/2024 [...] LAB BLOOD ORDERABLES Cherise still Result [facility] [address] [facility] Department of [facility] [place], [place] [id number] * (ABNORMAL) CBC with auto differential (10/21/2024 6:44 AM CDT) Pathologist [facility] WBC 32.5(H) 3.8 - 9.9 K/cumm Hgb 9.6(L) 13.0 - 17.5 g/dL [facility] Hct 29.3(L) 38.9 - 50.3 % [facility] Plt 461(H) 150 - 400 K/cumm [facility] MPV 9.3 9.1 - 12.3 fL [facility] RBC 3.28(L) 4.30 - 5.80 M/cumm [facility] MCV 89.3 81.3 - 96.4 fL [facility] MCH 29.3 27.1 - 33.3 pg [facility] MCHC 32.8 32.3 - 35.7 g/dL [facility] RDW CV 15.0(H) 11.1 - 14.9 % [facility] RDW SD 49.5(H) 35.7 - 48.1 fL [facility] NRBC abs 0.10(H) 0.00 - 0.01 K/cumm [facility] Blood 10/21/2024 6:44 AM CDT 10/21/2024 7:06 AM CDT Barbara Collins MD LAB BLO OD ORDERABLES Edited Result - Final [facility] [address] [facility] [place] [address] * (ABNORMAL) Manual Differential (10/21/2024 6:44 AM CDT) Differential Manual Cells Counted 100 [facility] Neutrophil abs 26.3(H) 1.5 - 6.5 K/cumm [facility] Imm gran abs 1.6(H) 0.0 - 0.1 K/cumm [facility] Lymphocyte abs 3.2 0.8 - 3.3 K/cumm [facility] Monocyte abs 1.3(H) 0.2 - 0.8 K/cumm [facility] Neutrophil pct 81.0 % [facility] Comment: Interpretive Data Percent cell count reference ranges are not reported, since discordance with absolute values may lead to misinterpretation of CBC data. Current Interpretive Data was last revised on 2017. Lymphocyte pct 10.0 % [facility] Comment: Interpretive Data Percent cell count reference ranges are not reported, since discordance with absolute values may lead to misinterpretation of CBC data. Current Interpretive Data was last revised on 2017. Monocyte pct 4.0 % [facility] Comment: Interpretive Data Percent cell count reference ranges are not reported, since discordance with absolute values may lead to misinterpretation of CBC data. Current Interpretive Data was last revised on 2017. Metamyelocyte pct 2.0(H) 0.0 - 0.0 % [facility] Myelocyte pct 3.0(H) 0.0 - 0.0 % [facility] RBC morphology Consistent with RBC Indicies [facility] Platelet estimate Automated Count Confirmed [facility] Blood 10/21/2024 6:44 AM CDT 10/21/2024 7:06 AM CDT us Matteo Julian MD LAB BLOOD ORDERABLES Cherise cheko Result [facility] [address] [facility] [place] [address] * (ABNORMAL) Comprehensive metabolic panel (10/21/2024 6:44 AM CDT) Sodium 143 135 - 145 mmol/L Potassium, pl 4.4 3.3 - 4.9 mmol/L [facility] Chloride 100 97 - 110 mmol/L [facility] CO2 23 22 - 32 mmol/L [facility] Anion gap 20(H) 2 - 15 mmol/L [facility] BUN 122(H) 6 - 25 mg/dL [facility] Creatinine 6.64(H) 0.80 - 1.30 mg/dL [facility] Glucose 102 70 - 199 mg/dL [facility] Comment: Interpretive Data Fasting glucose >/= [...] Calcium 9.4 8.5 - 10.3 mg/dL [facility] Bilirubin, total 0.2 0.1 - 1.2 mg/dL [facility] Protein, pl 6.2(L) 6.5 - 8.5 g/dL [facility] Albumin 3.3(L) 3.5 - 5.0 g/dL [facility] Alk phos 103 40 - 130 Units/L [facility] ALT 143(H) 7 - 55 Units/L [facility] AST 112(H) 10 - 50 Units/L [facility] Blood 10/21/2024 6:44 AM CDT 10/21/2024 7:11 AM CDT us Matteo Julian MD LAB BLOOD ORDERABLES Cherise l Result Performing Organization Address City/[facility]/ZIP Co de Phone Number YUNIOR[address] [place] [address] * (ABNORMAL) eGFR (10/20/2024 2:38 PM CDT) [...] was last reviewed 2021. Testing performed by: [facility], [address] [place] [address]., [id number] Blood 10/20/2024 2:38 PM CDT 10/20/2024 2:57 PM CDT us August Roger MD LAB BLOOD ORDERABLES Fi nal Result Performing Organization Address [facility]/ZIP Co de Phone Number [address] [employer] [place], [place] [phone] * (ABNORMAL) Protime-INR (10/20/2024 2:38 PM CDT) PT 16.1(H) 12.0 - 14.6 sec Comment: Ref Range High Testing performed by: [address] [address] INR 1.3(H) 0.9 - 1.2 [facility] Comment: Ref Range High Interpretive data Oral anticoagulant therapeutic ranges: Venous thromboembolism prophylaxis or treatment: 2.0-3.0 CARDIOLOGY Standard range: 2.0-3.0 High-intensity range: 2.5-3.5 Refer to indication-specific guidelines for appropriate target ranges for prosthetic heart valve replacement. Current interpretive data was last revised on 2019. Testing performed by: [address] [address] Blood 10/20/2024 2:38 PM CDT 10/20/2024 2:57 PM CDT Dong [facility] - 10/20/2024 3:12 PM CDT Baseline prior to apixaban initiation. August Roger MD LAB BLOOD ORDERABLES nal Result Performing Organization Address [facility]/ZIP Co de Phone Number [address] Department [place] [address] * (ABNORMAL) Creatinine (10/20/2024 2:38 PM CDT) Creatinine 6.56(H) 0.80 - 1.30 mg/dL Comment:Testing performed by : [address] [address] Blood 10/20/2024 2:38 PM CDT 10/20/2024 2:57 PM CDT Dong [facility] - 10/20/2024 3:26 PM CDT Baseline prior to apixaban initiation. August Roger MD LAB BLOOD ORDERABLES nal Result Performing Organization Address [facility]/ZIP Co de Phone Number [address] Department [place] [address] * (ABNORMAL) Hepatic function panel (10/20/2024 2:38 PM CDT) [facility] Bilirubin, total 0.2 0.1 - 1.2 mg/dL Comment:Testing performed by : [address] [address] Bilirubin, direct <0.2 0.1 - 0.3 mg/dL [facility] Comment:Testing performed by : [address] [address] Protein, pl 7.0 6.5 - 8.5 g/dL [facility] Comment:Testing performed by : [address] [address] Albumin 3.5 3.5 - 5.0 g/dL [facility] Comment:Testing performed by : [address] [address] Alk phos 116 40 - 130 Units/L [facility] Comment:Testing performed by : [address] [address] ALT 119(H) 7 - 55 Units/L [facility] Comment:Testing performed by : [address] [address] AST 95(H) 10 - 50 Units/L [facility] Comment:Testing performed by : [address] [address] Blood 10/20/2024 2:38 PM CDT 10/20/2024 2:57 PM CDT Narrative [facility] - 10/20/2024 3:26 PM CDT Baseline prior to apixaban initiation. August Roger MD LAB BLOOD ORDERABLES [facility] Result [facility] [address] [facility] [place] [address] * Hepatitis panel, acute Blood (10/20/2024 12:31 PM CDT) [facility] Hep A IgM Nonreactive Nonreactive Comment: Interpretive Data: If Hep A IgM Ab is reported as Equivocal, a new sample should be drawn in two weeks for testing. Current interpretive data was last revised on 19. Hep B core IgM Nonreactive Nonreactive [facility] Comment: Interpretive Data If HepB Core IgM Ab is reported as Equivocal, a new sample should be drawn in two weeks for testing. Current interpretive data was last revised on 19. Hep C Ab Nonreactive Nonreactive [facility] Comment: Antibodies to HCV not detected. [...] revised on 2019. HepBsAg Nonreactive Nonreactive [facility] Blood 10/20/2024 12:3 1 PM CDT 10/20/2024 2:31 PM CDT Carmen Walter MD LAB MICROBIOLOGY - [facility] ORDERABLES Final Result [facility] [address] [facility] Department of Laboratories [place], [place] [id number] * Hepatitis B surface antibody (immune status) Blood (10/20/2024 12:31 PM CDT) [facility] HBsAb (immune status) Nonreactive Comment: Interpretive Data [...] AL ORDERABLES Final Result Performing Organization Address [facility]/ZIP Co de Phone Number [facility] [place] [address] * Heparin anti factor Xa activity (10/20/2024 9:04 AM CDT) [facility] Anti Factor Xa 0.54 IUnits/mL Comment: Interpretive [...] last revised on 2019. Testing performed by: [facility], [address] [place] [address]., [address] Blood 10/20/2024 9:04 AM CDT 10/20/2024 9:08 AM CDT us Matteo Julian MD LAB BLOOD ORDERABLES Cherise l Result Performing Organization Address City/[facility]/ZIP Co de Phone Number [place] [phone] [facility] [place] [address] * CT Chest WO Contrast (10/20/2024 6:34 [...] Winston Kinney M.D. RB: SABINO Report ID: [id number] Reading Location: [place] [address] Procedure Note Winston Kinney MD - 10/20/2024 [...] Winston Kinney M.D. RB: SABINO Report ID: [id number] Reading Location: [place] [address] us Rigoberto Croft MD IMG CT PROCEDURES [...] was last reviewed 2021. Testing performed by: [facility], [address] [place] [address], [place]., [address] Blood 10/20/2024 3:52 AM CDT 10/20/2024 4:31 AM CDT us Matteo Julian MD LAB BLOOD ORDERABLES Cherise l Result [facility] [address] [facility] [place] [address] * (ABNORMAL) Differential, auto (10/20/2024 3:52 AM CDT) Neutrophil abs 21.5(H) 1.5 - 6.5 K/cumm Comment:Testing performed by : [address] [address] Imm gran abs 2.0(H) 0.0 - 0.1 K/cumm [facility] Comment:Testing performed by : [address] [address] Lymphocyte abs 1.3 0.8 - 3.3 K/cumm [facility] Comment:Testing performed by : [address] [address] Monocyte abs 0.8 0.2 - 0.8 K/cumm [facility] Comment:Testing performed by : [address] [address] Eosinophil abs 0.1 0.0 - 0.5 K/cumm [facility] Comment:Testing performed by : [address] [address] Basophil abs 0.2(H) 0.0 - 0.1 K/cumm [facility] Comment:Testing performed by : [address] [address] Neutrophil pct 83.3 % [facility] Comment: Interpretive Data Percent cell count reference ranges are not reported, since discordance with absolute values may lead to misinterpretation of CBC data. Current Interpretive Data was last revised on 2017. Testing performed by: [address] [address] Imm gran pct 7.7 % [facility] Comment: Interpretive Data Percent cell count reference ranges are not reported, since discordance with absolute values may lead to misinterpretation of CBC data. Current Interpretive Data was last revised on 2017. Testing performed by: [address] [address] Lymphocyte pct 5.1 % [facility] Comment: Interpretive Data Percent cell count reference ranges are not reported, since discordance with absolute values may lead to misinterpretation of CBC data. Current Interpretive Data was last revised on 2017. Testing performed by: [address] [address] Monocyte pct 3.0 % [facility] Comment: Interpretive Data Percent cell count reference ranges are not reported, since discordance with absolute values may lead to misinterpretation of CBC data. Current Interpretive Data was last revised on 2017. Testing performed by: [address] [address] Eosinophil pct 0.2 % [facility] Comment: Interpretive Data Percent cell count reference ranges are not reported, since discordance with absolute values may lead to misinterpretation of CBC data. Current Interpretive Data was last revised on 2017. Testing performed by: [address] [address] Basophil pct 0.7 % [facility] Comment: Interpretive Data Percent cell count reference ranges are not reported, since discordance with absolute values may lead to misinterpretation of CBC data. Current Interpretive Data was last revised on 2017. Testing performed by: [address] [address] Blood 10/20/2024 3:52 AM CDT 10/20/2024 4:33 AM CDT Honorio Mosqueda NP LAB BLOOD ORDERABLES Final Result [facility] [address] [facility] Department [place] [address] * Heparin anti factor Xa activity (10/20/2024 3:52 AM CDT) [facility] Anti Factor Xa 0.42 IUnits/mL Comment: Interpretive [...] last revised on 2019. Testing performed by: [address] [address] Blood 10/20/2024 3:52 AM CDT 10/20/2024 4:34 AM CDT us Matteo Julian MD LAB BLOOD ORDERABLES Cherise still Result [facility] [address] [facility] Department of Laboratories [place], [place] [id number] * (ABNORMAL) CBC with auto differential (10/20/2024 3:52 AM CDT) [facility] WBC 25.8(H) 3.8 - 9.9 K/cumm Comment:Testing performed by : [address] [address] Hgb 9.4(L) 13.0 - 17.5 g/dL [facility] Comment:Testing performed by : [address] [address] Hct 29.0(L) 38.9 - 50.3 % [facility] Comment:Testing performed by : [address] [address] Plt 429(H) 150 - 400 K/cumm [facility] Comment:Testing performed by : [address] [address] MPV 9.4 9.1 - 12.3 fL [facility] Comment:Testing performed by : [address] [address] RBC 3.15(L) 4.30 - 5.80 M/cumm [facility] Comment:Testing performed by : [address] [address] MCV 92.1 81.3 - 96.4 fL [facility] Comment:Testing performed by : [address] [address] MCH 29.8 27.1 - 33.3 pg [facility] Comment:Testing performed by : [address] [address] MCHC 32.4 32.3 - 35.7 g/dL [facility] Comment:Testing performed by : [address], [address] RDW CV 15.2(H) 11.1 - 14.9 % [facility] Comment:Testing performed by : [address], [address] RDW SD 50.7(H) 35.7 - 48.1 fL [facility] Comment:Testing performed by : [address] [address] NRBC abs 0.04(H) 0.00 - 0.01 K/cumm [facility] Comment:Testing performed by : [address] [address] Blood 10/20/2024 3:52 AM CDT 10/20/2024 4:33 AM CDT Barbara Collins MD LAB BLO OD ORDERABLES Final Result [facility] [address] [facility] [place] [address] * (ABNORMAL) CRP (acute phase) (10/20/2024 3:52 AM CDT) [facility] CRP 225.0(H) <=10.0 mg/L Comment:Testing performed by : [address], [address] Blood 10/20/2024 3:52 AM CDT 10/20/2024 4:31 AM CDT Rigoberto Croft MD LAB BLOOD ORDERABLES F inal Result [facility] [address] [facility] [place] [address] * (ABNORMAL) Comprehensive metabolic panel (10/20/2024 3:52 AM CDT) Sodium 139 135 - 145 mmol/L Comment:Testing performed by : [address] [address] Potassium, pl 4.0 3.3 - 4.9 mmol/L [facility] Comment:Testing performed by : [address] [address] Chloride 98 97 - 110 mmol/L [facility] Comment:Testing performed by : [address] [address] CO2 22 22 - 32 mmol/L [facility] Comment:Testing performed by : [address] [address] Anion gap 19(H) 2 - 15 mmol/L [facility] Comment:Testing performed by : [address] [address] BUN 105(H) 6 - 25 mg/dL [facility] Comment:Testing performed by : [address] [address] Creatinine 6.35(H) 0.80 - 1.30 mg/dL [facility] Comment:Testing performed by : [address] [address] Glucose 172 70 - 199 mg/dL [facility] [...] was last revised 2022. Testing performed by: [address] [address] Calcium 10.1 8.5 - 10.3 mg/dL [facility] Comment:Testing performed by : [address] [address] Bilirubin, total 0.2 0.1 - 1.2 mg/dL [facility] Comment:Testing performed by : [address] [address] Protein, pl 6.6 6.5 - 8.5 g/dL [facility] Comment:Testing performed by : [address] [address] Albumin 3.2(L) 3.5 - 5.0 g/dL [facility] Comment:Testing performed by : [address] [address] Alk phos 132(H) 40 - 130 Units/L [facility] Comment:Testing performed by : [address] [address] ALT 91(H) 7 - 55 Units/L [facility] Comment:Testing performed by : [address] [address] AST 105(H) 10 - 50 Units/L [facility] Comment:Testing performed by : [address] [address] Blood 10/20/2024 3:52 AM CDT 10/20/2024 4:31 AM CDT us Matteo Julian MD LAB BLOOD ORDERABLES Cherise still Result [facility] [address] [facility] Department of Laboratories [place], [place] [id number] * Heparin anti factor Xa activity (10/19/2024 [...] last revised on 2019. Testing performed by: [facility], [address] [place] [address]., [address] Blood 10/19/2024 7:33 PM CDT 10/19/2024 7:50 PM CDT us Matteo Julian MD LAB BLOOD ORDERABLES Cherise l Result [facility] [address] [facility] [place] [address] * Heparin anti factor Xa activity (10/19/2024 12:50 PM CDT) [facility] Signature Anti Factor Xa <0.10 [...] last revised on 2019. Testing performed by: [address] [address] Blood 10/19/2024 12:5 0 PM CDT 10/19/2024 1:08 PM CDT Narrative [facility] - 10/19/2024 1:55 PM CDT Baseline prior to heparin initiation Matteo Julian MD LAB BLOOD ORDERABLES Cherise l Result [facility] [address] [facility] Department [place] [address] * (ABNORMAL) Protime-INR (10/19/2024 12:50 PM CDT) Pathologist [facility] PT 15.6(H) 12.0 - 14.6 sec Comment: Ref Range High Testing performed by: [address] [address] INR 1.3(H) 0.9 - 1.2 [facility] Comment: Ref Range High Interpretive data Oral anticoagulant therapeutic ranges: Venous thromboembolism prophylaxis or treatment: 2.0-3.0 CARDIOLOGY Standard range: 2.0-3.0 High-intensity range: 2.5-3.5 Refer to indication-specific guidelines for appropriate target ranges for prosthetic heart valve replacement. Current interpretive data was last revised on 2019. Testing performed by: [address] [address] Blood 10/19/2024 12:5 0 PM CDT 10/19/2024 1:07 PM CDT Narrative [facility] ROSADO - 10/19/2024 1:27 PM CDT Baseline prior to heparin initiation Matteo Julian MD LAB BLOOD ORDERABLES Cherise l Result Performing Organization Address [facility] Co de Phone Number [facility] [address] [facility] [place] [address] * ECG 12 lead (10/19/2024 12:28 PM CDT) Pathologist [facility] Ventricular Rate EKG/Min 122 BPM [facility] Atrial Rate 133 BPM [facility] QRS-Interval (MSEC) 156 ms [facility] QT-Interval (MSEC) 372 ms [facility] QTc 530 ms [facility] R Peabody 270 degrees [facility] T Peabody 75 degrees [facility] Diagnosis Atrial fibrillation with rapid ventricular response Left axis deviation Non-specific intra-ventricul ar conduction block Abnormal ECG Confirmed by LANDEN SEARS M.D. ([id number]) on 10/19/2024 4:58:38 PM [facility] 10/19/2024 12:2 8 PM CDT 10/19/2024 4:58 PM CDT Matteo Julian MD ECG ORDERABLES Final Res ult Performing Organization Address [facility] de Phone Number [facility] * XR Chest 1 View (10/19/2024 8:40 [...] Jonathan Oneill M.D. KR: KEL Report ID: [id number] Reading Location: [place] [address] Procedure Note Jonathan Oneill MD - 10/19/2024 [...] Jonathan Oneill M.D. KR: KEL Report ID: [id number] Reading Location: [place] [address] Rigoberto Croft MD IMG XR PROCEDURES Cherise [...] was last reviewed 2021. Testing performed by: [address] [address] Blood 10/19/2024 4:05 AM CDT 10/19/2024 4:39 AM CDT us Matteo Julian MD LAB BLOOD ORDERABLES Cherise still Result [facility] [address] [facility] [place] [address] * (ABNORMAL) Differential, auto (10/19/2024 4:05 AM CDT) Neutrophil abs 18.8(H) 1.5 - 6.5 K/cumm Comment:Testing performed by : [address] [address] Imm gran abs 1.0(H) 0.0 - 0.1 K/cumm [facility]AVEL Comment:Testing performed by : [address] [address] Lymphocyte abs 0.9 0.8 - 3.3 K/cumm [facility] Comment:Testing performed by : [address] [address] Monocyte abs 0.8 0.2 - 0.8 K/cumm PAVEL Comment:Testing performed by : [address] [address] Eosinophil abs 0.0 0.0 - 0.5 K/cumm [facility]AVEL Comment:Testing performed by : [address] [address] Basophil abs 0.1 0.0 - 0.1 K/cumm [facility]AVEL Comment:Testing performed by : [address] [address] Neutrophil pct 87.5 % [facility] Comment: Interpretive Data Percent cell count reference ranges are not reported, since discordance with absolute values may lead to misinterpretation of CBC data. Current Interpretive Data was last revised on 2017. Testing performed by: [address] [address] Imm gran pct 4.5 % [facility] Comment: Interpretive Data Percent cell count reference ranges are not reported, since discordance with absolute values may lead to misinterpretation of CBC data. Current Interpretive Data was last revised on 2017. Testing performed by: [address] [address] Lymphocyte pct 4.0 % [facility] Comment: Interpretive Data Percent cell count reference ranges are not reported, since discordance with absolute values may lead to misinterpretation of CBC data. Current Interpretive Data was last revised on 2017. Testing performed by: [address] [address] Monocyte pct 3.6 % [facility] Comment: Interpretive Data Percent cell count reference ranges are not reported, since discordance with absolute values may lead to misinterpretation of CBC data. Current Interpretive Data was last revised on 2017. Testing performed by: [address] [address] Eosinophil pct 0.1 % [facility] Comment: Interpretive Data Percent cell count reference ranges are not reported, since discordance with absolute values may lead to misinterpretation of CBC data. Current Interpretive Data was last revised on 2017. Testing performed by: [address] [address] Basophil pct 0.3 % [facility] Comment: Interpretive Data Percent cell count reference ranges are not reported, since discordance with absolute values may lead to misinterpretation of CBC data. Current Interpretive Data was last revised on 2017. Testing performed by: [address] [address] Blood 10/19/2024 4:05 AM CDT 10/19/2024 4:41 AM CDT us Honorio Mosqueda NP LAB BLOOD ORDERABLES Final Result Performing Organization Address [facility] Co de Phone Number [address] [address] * (ABNORMAL) Thyroid Function [place] (10/19/2024 4:05 AM CDT) TSH 0.12(L) 0.30 - 4.20 mcIUnit/mL Comment:Testing performed by : [address] [address] Blood 10/19/2024 4:05 AM CDT 10/19/2024 4:39 AM CDT us Matteo Julian MD LAB BLOOD ORDERABLES Cherise l Result Performing Organization Address [facility] Co de Phone Number [address] [address] * (ABNORMAL) CBC with auto differential (10/19/2024 4:05 AM CDT) Pathologist [facility] WBC 21.5(H) 3.8 - 9.9 K/cumm Comment:Testing performed by : [address] [address] Hgb 9.7(L) 13.0 - 17.5 g/dL PAVEL Comment:Testing performed by : [address] [address] Hct 29.8(L) 38.9 - 50.3 % PAVEL Comment:Testing performed by : [address] [address] Plt 419(H) 150 - 400 K/cumm PAVEL Comment:Testing performed by : [address] [address] MPV 9.6 9.1 - 12.3 fL PAVEL ROSADO Comment:Testing performed by : [address] [address] RBC 3.25(L) 4.30 - 5.80 M/cumm PAVEL ROSADO Comment:Testing performed by : [address] [address] MCV 91.7 81.3 - 96.4 fL PAVEL Comment:Testing performed by : [address] [address] MCH 29.8 27.1 - 33.3 pg PAVEL Comment:Testing performed by : [address] [address] MCHC 32.6 32.3 - 35.7 g/dL PAVEL Comment:Testing performed by : [address] [address] RDW CV 15.2(H) 11.1 - 14.9 % PAVEL Comment:Testing performed by : [address], [address] RDW SD 51.7(H) 35.7 - 48.1 fL PAVEL Comment:Testing performed by : [address] [address] NRBC abs 0.00 0.00 - 0.01 K/cumm PAVEL Comment:Testing performed by : [address] [address] Blood 10/19/2024 4:05 AM CDT 10/19/2024 4:41 AM CDT us Barbara Collins MD LAB BLO OD ORDERABLES Final Result PAVEL 6052 [facility] [place] [address] * (ABNORMAL) CRP (acute phase) (10/19/2024 4:05 AM CDT) [facility] CRP 476.0(H) <=10.0 mg/L Comment:Testing performed by : [address] [address] Blood 10/19/2024 4:05 AM CDT 10/19/2024 4:39 AM CDT Rigoberto Croft MD LAB BLOOD ORDERABLES F inal Result Performing Organization Address City/[facility]/ZIP Co de Phone Number [address] [place] [address] * (ABNORMAL) T3, free (10/19/2024 4:05 AM CDT) Free T3 1.5(L) 2.0 - 4.4 pg/mL Blood 10/19/2024 4:05 AM CDT 10/19/2024 4:42 PM CDT Narrative PAVEL - 10/19/2024 5:11 PM CDT This test was reflexed from a T4 result. Matteo Julian MD LAB BLOOD ORDERABLES Cherise l Result Performing Organization Address [facility] Co de Phone Number [address] [address] * T4, free (10/19/2024 4:05 AM CDT) Free T4 1.40 0.90 - 1.70 ng/dL Comment:Testing performed by : [address] [address] Blood 10/19/2024 4:05 AM CDT 10/19/2024 4:39 AM CDT Narrative PAVEL - 10/19/2024 2:34 PM CDT This test was reflexed from a TSH result. Matteo Julian MD LAB BLOOD ORDERABLES Cherise l Result Performing Organization Address City/[facility]/ZIP Co de Phone Number [address] [place] [address] * (ABNORMAL) Comprehensive metabolic panel (10/19/2024 4:05 AM CDT) Sodium 139 135 - 145 mmol/L Comment:Testing performed by : [address] [address] Potassium, pl 4.5 3.3 - 4.9 mmol/L PAVEL Comment: Hemolyzed; Potassium value may be falsely elevated by as much as 1.0 mmol/L. Suggest redraw and reanalysis. Testing performed by: [address], [place]., [address] Chloride 100 97 - 110 mmol/L [facility] Comment:Testing performed by : [address], [place]., [address] CO2 22 22 - 32 mmol/L [facility] Comment:Testing performed by : [address], [place]., [address] Anion gap 17(H) 2 - 15 mmol/L [facility] Comment:Testing performed by : [address] [address] BUN 89(H) 6 - 25 mg/dL [facility] Comment:Testing performed by : [address] [address] Creatinine 5.77(H) 0.80 - 1.30 mg/dL [facility] Comment:Testing performed by : [address] [address] Glucose 196 70 - 199 mg/dL [facility] Comment: Interpretive Data Fasting glucose >/= [...] was last revised 2022. Testing performed by: [address], [place]., [address] Calcium 10.4(H) 8.5 - 10.3 mg/dL PAVEL Comment:Testing performed by : [address], [address] Bilirubin, total 0.2 0.1 - 1.2 mg/dL PAVEL Comment:Testing performed by : [address] [address] Protein, pl 7.1 6.5 - 8.5 g/dL PAVEL Comment:Testing performed by : [address], [address] Albumin 3.2(L) 3.5 - 5.0 g/dL PAVEL Comment:Testing performed by : [address], [address] Alk phos 102 40 - 130 Units/L PAVEL Comment:Testing performed by : [address], [address] ALT 31 7 - 55 Units/L PAVEL Comment:Testing performed by : [address], [address] AST 44 10 - 50 Units/L PAVEL Comment: Hemolyzed; result may be falsely elevated Testing performed by: [address], [address] Blood 10/19/2024 4:05 AM CDT 10/19/2024 4:39 AM CDT us Matteo Julian MD LAB BLOOD ORDERABLES Cherise l Result PAVEL 83[address] [facility] Department of Laboratories [place], [place] [id number] * TRANSTHORACIC ECHO (TTE) COMPLETE W DOPPLER/CF W CONTRAST (10/18/2024 2:30 PM CDT) LV EF 30-35 % CONS SCIMAGE Anatomical Region Laterality Modality Ultrasound 10/18/2024 1:40 PM CDT Narrative 10/18/2024 6:15 PM CDT Transthoracic Echocardiographic Report Patient Name: LAMIN BETTS J : 1950 (74y 8m) Gender: M Study Date: 10/18/2024 01:40:19 PM Ht(Inch): 75 Wt(Lb): 267.99 BSA: 2.54 Inspector Watch Parts: Lily Alford RDCS Location: [place] [address] Order Provider: HONORIO MOSQUEDA Heart Rate: 120 BMI: 33.49 BP: 121 / 94 Ref Provider: HONORIO MOSQUEDA PROCEDURES: Echocardiographic Report: ([id number]) Transthoracic complete echo with contrast, 2D, spectral [...] AI Peak PG 70.00 mmHg AI Decel Crawford 4.33 m/s2 AI PHT 284.00 ms MV [...] PM Ht(Inch): 75 Wt(Lb): 267.99 BSA: 2.54 Inspector Watch Parts: Lily Alford RDCS Location: [id number] Order Provider:HONORIO MOSQUEDA Heart Rate: 120 BMI: 33.49 BP: 121 / 94 Ref Provider: HONORIO MOSQUEDA PROCEDURES: Echocardiographic Report: ([id number]) Transthoracic complete echo withcontrast, 2D, spectral and [...] AI Peak PG 70.00 mmHg AI Decel Crawford 4.33 m/s2 AI PHT 284.00 ms MV [...] 12 lead (10/18/2024 5:59 AM CDT) Pathologist [facility] Ventricular Rate EKG/Min 93 BPM [facility] Atrial Rate 93 BPM [facility] AL-Interval (MSEC) 208 ms [facility] QRS-Interval (MSEC) 162 ms [facility] QT-Interval (MSEC) 416 ms [facility] QTc 517 ms [facility] R Peabody 257 degrees [facility] T Peabody 92 degrees [facility] Diagnosis Sinus rhythm with occasional Premature ventricular complexes and Premature atrial complexes Right superior axis deviation Left bundle branch block Incomplete right bundle branch block Abnormal ECG When compared with ECG of 17-OCT-2024 13:15, Premature ventricular complexes are now Present Confirmed by SULTAN DREW M.D. ([id number]) on 10/18/2024 3:53:08 PM [facility] 10/18/2024 5:59 AM CDT 10/18/2024 3:53 PM CDT us Matteo Julian MD ECG ORDERABLES Final Res ult [facility] * (ABNORMAL) Differential, auto (10/18/2024 4:42 AM CDT) Neutrophil abs 12.6(H) 1.5 - 6.5 K/cumm Comment:Testing performed by : [address], [place]., [address] Imm gran abs 0.1 0.0 - 0.1 K/cumm CERALDO Comment:Testing performed by : [address], [place]., [address] Lymphocyte abs 0.4(L) 0.8 - 3.3 K/cumm CERNER Comment:Testing performed by : [address], [place]., [address] Monocyte abs 0.5 0.2 - 0.8 K/cumm [facility] Comment:Testing performed by : [address], [place]., [address] Eosinophil abs 0.0 0.0 - 0.5 K/cumm [facility] Comment:Testing performed by : [address], [place]., [address] Basophil abs 0.0 0.0 - 0.1 K/cumm [facility] Comment:Testing performed by : [address] [address] Neutrophil pct 92.4 % [facility] Comment: Interpretive Data Percent cell count reference ranges are not reported, since discordance with absolute values may lead to misinterpretation of CBC data. Current Interpretive Data was last revised on 2017. Testing performed by: [address] [address] Imm gran pct 0.8 % [facility] Comment: Interpretive Data Percent cell count reference ranges are not reported, since discordance with absolute values may lead to misinterpretation of CBC data. Current Interpretive Data was last revised on 2017. Testing performed by: [address] [address] Lymphocyte pct 3.2 % [facility] Comment: Interpretive Data Percent cell count reference ranges are not reported, since discordance with absolute values may lead to misinterpretation of CBC data. Current Interpretive Data was last revised on 2017. Testing performed by: [address] [address] Monocyte pct 3.5 % [facility] Comment: Interpretive Data Percent cell count reference ranges are not reported, since discordance with absolute values may lead to misinterpretation of CBC data. Current Interpretive Data was last revised on 2017. Testing performed by: [address] [address] Eosinophil pct 0.0 % [facility]EL Comment: Interpretive Data Percent cell count reference ranges are not reported, since discordance with absolute values may lead to misinterpretation of CBC data. Current Interpretive Data was last revised on 2017. Testing performed by: [address] [address] Basophil pct 0.1 % [facility] Comment: Interpretive Data Percent cell count reference ranges are not reported, since discordance with absolute values may lead to misinterpretation of CBC data. Current Interpretive Data was last revised on 2017. Testing performed by: [address] [address] Blood 10/18/2024 4:42 AM CDT 10/18/2024 5:22 AM CDT Honorio Mosqueda WOOD GRINDER OPERATOR LAB BLOOD ORDERABLES Final Result [facility] 49[address] [facility] Department [place] [address] * (ABNORMAL) Iron profile w/ IBC (10/18/2024 4:42 AM CDT) Iron 16(L) 50 - 150 mcg/dL Comment:Testing performed by : [address] [address] TIBC 177(L) 250 - 400 mcg/dL PAVEL Comment:Testing performed by : [address] [address] Transferrin saturation 9(L) 20 - 50 % PAVEL Comment:Testing performed by : [address] [address] Blood 10/18/2024 4:42 AM CDT 10/18/2024 5:18 AM CDT Honorio Mosqueda WOOD GRINDER OPERATOR LAB BLOOD ORDERABLES Final Result [facility] 9724 [facility] Department [place] [address] * (ABNORMAL) CBC with auto differential (10/18/2024 4:42 AM CDT) [facility] Signature WBC 13.6(H) 3.8 - 9.9 K/cumm Comment:Testing performed by : [address] [address] Hgb 9.5(L) 13.0 - 17.5 g/dL PAVEL Comment:Testing performed by : [address], [address] Hct 30.5(L) 38.9 - 50.3 % PAVEL Comment:Testing performed by : [address] [address] Plt 342 150 - 400 K/cumm PAVEL Comment:Testing performed by : [address] [address] MPV 10.3 9.1 - 12.3 fL PAVEL Comment:Testing performed by : [address], [address] RBC 3.27(L) 4.30 - 5.80 M/cumm PAVEL Comment:Testing performed by : [address] [address] MCV 93.3 81.3 - 96.4 fL PAVEL Comment:Testing performed by : [address] [address] MCH 29.1 27.1 - 33.3 pg PAVEL Comment:Testing performed by : [address] [address] MCHC 31.1(L) 32.3 - 35.7 g/dL PAVEL Comment:Testing performed by : [address] [address] RDW CV 15.0(H) 11.1 - 14.9 % PAVEL Comment:Testing performed by : [address] [address] RDW SD 51.3(H) 35.7 - 48.1 fL PAVEL ROSADO Comment:Testing performed by : [address] [address] NRBC abs 0.00 0.00 - 0.01 K/cumm PAVEL ROSADO Comment:Testing performed by : [address] [address] Blood 10/18/2024 4:42 AM CDT 10/18/2024 5:22 AM CDT Barbara Collins MD LAB BLO OD ORDERABLES Final Result Performing Organization Address City/[facility]/ZIP Co de Phone Number YUNIOR[address] [place] [address] * Phosphorus (10/18/2024 4:42 AM CDT) Phosphorus, pl 3.1 2.3 - 4.5 mg/dL Comment:Testing performed by : [address] [address] Blood 10/18/2024 4:42 AM CDT 10/18/2024 5:18 AM CDT Honorio Mosqueda NP LAB BLOOD ORDERABLES Final Result Performing Organization Address City/[facility] Co de Phone Number [address] [address] * Magnesium (10/18/2024 4:42 AM CDT) Magnesium 2.0 1.4 - 2.5 mg/dL Comment:Testing performed by : [address] [address] Blood 10/18/2024 4:42 AM CDT 10/18/2024 5:18 AM CDT Shereece Katie Mosqueda WOOD GRINDER OPERATOR LAB BLOOD ORDERABLES Final Result Performing Organization Address City/[facility]/ZIP Co de Phone Number PAVEL 45[address] [facility] Department [place] [address] * Ferritin (10/18/2024 4:42 AM CDT) Pathologist [facility] Ferritin 353 30 - 400 ng/mL Comment:Testing performed by : [facility], [address] [place] [address]., [address] Blood 10/18/2024 4:42 AM CDT 10/18/2024 5:18 AM CDT Honorio Mosqueda WOOD GRINDER OPERATOR LAB BLOOD ORDERABLES Final Result Performing Organization Address [facility] Co de Phone Number PAVEL ROSADO [address] [place] [address] * (ABNORMAL) Pneumonia PCR with aerobic culture and Gram stain Sputum (10/18/2024 12:24 AM CDT) Pathologist [facility] Direct Specimen Exam Stain: Abundant squamous epithelial cells seen indicating excessive oropharyngeal contamination. Culture will not be processed further. Please submit another specimen. Smear results called to and read back by: Jackie Leos MLT ([phone]) on 10/18/2024 05:15:52 by: Willian Christine Jr [place] Results phoned to and read back by: [id number] on 10/18/2024 05:25:35 by: [id number] Comment:Testing performed by : [facility], [address] [place] [address], [place]., [address] Direct Specimen Exam Molecular Analysis: Abundant squamous epithelial cells observed on Gram stain. Specimen will not be processed for rapid molecular analysis. PAVEL ROSADO Comment:Testing performed by : [facility], [address] [place] [address]., [address] Report Final Report: This is the final report. (.) PAVEL ROSADO Comment:Testing performed by : [facility], [address] [place] [address]., [address] Sputum 10/18/2024 12:2 4 AM CDT 10/18/2024 3:49 AM CDT Narrative PAVEL - 10/18/2024 7:45 AM CDT When rapid molecular testing results are reported, testing completed using the [employer] JapanArray Pneumonia Panel. This molecular assay detects: Acinetobacter [...] performance characteristics have been confirmed by the [facility]. The performance of the FilmArray Pneumonia Panel has not been established for monitoring treatment of infection and bacterial nucleic acids may persist independent of organism viability. Honorio Mosqueda NP LAB MICROBIOLOGY - G [facility] ORDERABLES Final Result PAVEL 9[address] [facility] Department [place] [address] * Strep pneumoniae antigen, urine [...] Final Result Performing Organization Address [facility] de Phone Number [address] [address] * Legionella antigen Urine (10/18/2024 12:24 AM CDT) Pathologist [facility] Legionella Ag Negative Negative Comment: Interpretive Data This test detects only Legionella pneumophila serogroup 1 antigen. Testing performed by [facility] ([phone]). Current interpretive data was last revised on 2019. Testing performed by: [facility], [address] [place] [address], [place]., [address] Urine 10/18/2024 12:2 4 AM CDT 10/18/2024 3:58 AM CDT Honorio Mosqueda LAB MICROBIOLOGY - G [facility] ORDERABLES Final Result Performing Organization Address [facility] de Phone Number [place] [phone] [place] [address] * (ABNORMAL) Troponin T high-sensitivity 6-hour (10/17/2024 9:59 PM CDT) Pathologist [facility] Trop T hs 118(H) <=22 ng/L Comment: Interpretive Data For further hscTnT resources including the diagnostic algorithm and an aid in interpretation, copy and paste this link: https://nrl.testcatalog.org/show/hsTrop Current Interpretive Data last revised 2020. Testing performed by: [address] [address] Trop T hs delta See Comment ng/L PAVEL ROSADO Comment: Inappropriate collection time to report a delta. Testing performed by: [address], [place]., [address] Trop T hs pct delta See Comment % PAVEL ROSADO Comment: Inappropriate collection time to report a delta. Testing performed by: [address], [place]., [address] Trop T hs interp See Comment PAVEL ROSADO Comment: Inappropriate collection time to report a delta. Testing performed by: [address], [place]., [address] Blood 10/17/2024 9:59 PM CDT 10/17/2024 10:04 PM CDT Eugenio Myrick DO LAB BLOOD ORDERABLES Final Result Performing Organization Address City/State/[facility] Co de Phone Number PAVEL [address] [facility] Department [place] [address] * (ABNORMAL) eGFR (10/17/2024 9:59 PM CDT) [...] was last reviewed 2021. Testing performed by: [address], [place]., [address] Blood 10/17/2024 9:59 PM CDT 10/17/2024 10:04 PM CDT Honorio Mosqueda WOOD GRINDER OPERATOR LAB BLOOD ORDERABLES Final Result Performing Organization Address [facility] Co de Phone Number [address] [address] * (ABNORMAL) Calcium, ionized (10/17/2024 9:59 PM CDT) [facility] Calcium, Ionized 5.17(H) 4.50 - 5.10 mg/dL Blood 10/17/2024 9:59 PM CDT 10/18/2024 12:34 AM CDT Honorio Mosqueda WOOD GRINDER OPERATOR LAB BLOOD ORDERABLES Final Result Performing Organization Address City/[facility] Co de Phone Number [address] [place] [address] * Vitamin D 25 hydroxy (10/17/2024 9:59 PM CDT) [facility] Vitamin D 25-OH 37.0 30.0 - 80.0 ng/mL Blood 10/17/2024 9:59 PM CDT 10/18/2024 12:34 AM CDT Honorio Mosqueda WOOD GRINDER OPERATOR LAB BLOOD ORDERABLES Final Result Performing Organization Address City/[facility] Co de Phone Number [address] [address] * Phosphorus (10/17/2024 9:59 PM CDT) [facility] Phosphorus, pl 3.3 2.3 - 4.5 mg/dL Comment:Testing performed by : [facility], [address] [place] [address]., [address] Blood 10/17/2024 9:59 PM CDT 10/17/2024 10:04 PM CDT Honorio Guptaanna Mosqueda WOOD GRINDER OPERATOR LAB BLOOD ORDERABLES Final Result Performing Organization Address [facility] Co de Phone Number PAVEL [address] [address] * (ABNORMAL) PTH (10/17/2024 9:59 PM CDT) [facility] PTH 130(H) 15 - 65 pg/mL Comment:Testing performed by : [address] [address] Blood 10/17/2024 9:59 PM CDT 10/17/2024 10:04 PM CDT Honorio Mosqueda WOOD GRINDER OPERATOR LAB BLOOD ORDERABLES Final Result Performing Organization Address [facility] Phone Number [id number] [address] * (ABNORMAL) Comprehensive metabolic panel (10/17/2024 9:59 PM CDT) [facility] Sodium 136 135 - 145 mmol/L Comment:Testing performed by : [address] [address] Potassium, pl 4.3 3.3 - 4.9 mmol/L PAVEL Comment:Testing performed by : [address] [address] Chloride 99 97 - 110 mmol/L PAVEL Comment:Testing performed by : [address] [address] CO2 22 22 - 32 mmol/L PAVEL Comment:Testing performed by : [address] [address] Anion gap 15 2 - 15 mmol/L PAVEL Comment:Testing performed by : [address] [address] BUN 65(H) 6 - 25 mg/dL PAVEL Comment:Testing performed by : [address] [address] Creatinine 5.22(H) 0.80 - 1.30 mg/dL PAVEL Comment:Testing performed by : [address] [address] Glucose 244(H) 70 - 199 mg/dL PAVEL [...] was last revised 2022. Testing performed by: [address] [address] Calcium 10.4(H) 8.5 - 10.3 mg/dL PAVEL Comment:Testing performed by : [address] [address] Bilirubin, total 0.4 0.1 - 1.2 mg/dL PAVEL Comment:Testing performed by : [address] [address] Protein, pl 7.0 6.5 - 8.5 g/dL PAVEL Comment:Testing performed by : [address] [address] Albumin 3.4(L) 3.5 - 5.0 g/dL PAVEL Comment:Testing performed by : [address] [address] Alk phos 88 40 - 130 Units/L PAVEL Comment:Testing performed by : [address] [address] ALT 21 7 - 55 Units/L PAVEL Comment:Testing performed by : [address], [address] AST 26 10 - 50 Units/L PAVEL Comment:Testing performed by : [address] [place] [address] Blood 10/17/2024 9:59 PM CDT 10/17/2024 10:04 PM CDT Honorio Mosqueda NP LAB BLOOD ORDERABLES Final Result Performing Organization Address [facility] de Phone Number [address] [address] * MRSA Only (Staphylococcus aureus) PCR Nasal (10/17/2024 8:16 PM CDT) PCR Scrn, Methicillin resistant Staphylococcus aureus (MRSA) Not Detected Not Detected Comment: Interpretive Data Testing performed using Nucleic Acid Amplification with the [employer] Xpert MRSA NxG Assay. This assay detects target DNA from mecA, mecC and the SCCmec insertion site of Staphylococcus aureus using Real-Time PCR and has been cleared by the FDA. Performance characteristics have been verified by the [facility]. Current Interpretive Data was last revised on 2023 Testing performed by: [facility], [address] [place] [address]., [address] Nasal 10/17/2024 8:16 PM CDT 10/17/2024 8:21 PM CDT Honorio Mosqueda NP LAB MICROBIOLOGY - G ENERAL ORDERABLES Final Result Performing Organization Address [facility] de Phone Number [address] [address] * (ABNORMAL) Troponin T high-sensitivity 4-hour (10/17/2024 5:47 PM CDT) Trop T hs 128(H) <=22 ng/L Comment: Interpretive Data For further hscTnT resources including the diagnostic algorithm and an aid in interpretation, copy and paste this link: https://nrl.testcatalog.org/show/hsTrop Current Interpretive Data last revised 2020. Testing performed by: [address] [address] Trop T hs pct delta -10 % PAVEL Comment:Testing performed by : [address] [address] Trop T hs interp Equivocal PAVEL Comment:Testing performed by : [address] [address] Blood 10/17/2024 5:47 PM CDT 10/17/2024 5:51 PM CDT Eugenio Myrick DO LAB BLOOD ORDERABLES Final Result Performing Organization Address [facility] Co de Phone Number [address] [place] [address] * Sepsis Lactate w/ Reflex (10/17/2024 5:47 PM CDT) Pathologist [facility] Sepsis Lactate 1.2 0.7 - 2.0 mmol/L Comment:Testing performed by : [address] [address] Blood 10/17/2024 5:47 PM CDT 10/17/2024 5:51 PM CDT Jonathan Lentz DO LAB BLOOD ORDERABLES Final Result Performing Organization Address [facility] de Phone Number [address] [address] * (ABNORMAL) POC Blood Gas and Chemistries, Venous - (10/17/2024 4:27 PM CDT) Pathologist [facility] pH,ericka POC 7.47(H) 7.32 - 7.43 Comment:Testing performed by : [address] [address] pCO2, ericka POC 30(L) 40 - 50 mmHg PAVEL ROSADO Comment:Testing performed by : [address] [address] pO2,ericka POC 77 mmHg PAVEL Comment: Interpretive Data No reference range established. Current interpretive data was last revised 2020. Testing performed by: [address] [address] HCO3, ericka (Calc) POC 22 20 - 30 mmol/L PAVEL ROSADO Comment:Testing performed by : [address] [address] Base excess, ericka POC -1 mmol/L PAVEL ROSADO Comment: Interpretive Data No reference range established. Current interpretive data was last revised 2020. Testing performed by: [address] [address] Blood 10/17/2024 4:27 PM CDT 10/17/2024 4:27 PM CDT us Jonathan Lentz DO LAB POCT ORDERABLES - DEVIC E Final Result PAVEL ROSADO [address] [facility] [place] [address] * NM Pulmonary Perfusion Imaging (10/17/2024 3:49 [...] Oliverio Steinberg M.D. LB: JC Report ID: [id number] Reading Location: [id number] Procedure Note Oliverio Steinberg MD - 10/17/2024 [...] Oliverio Steinberg M.D. LB: JC Report ID: [id number] Reading Location: [id number] Jonathan Lentz DO IMG NM PROCEDURES Final Res ult * Blood culture Blood (10/17/2024 3:10 PM CDT) Report Final Report: No growth Comment:Testing performed by : [facility], [address] [facility], [place]., [address] Blood 10/17/2024 3:10 PM CDT 10/17/2024 7:29 [...] performance characteristics have been verified by the [facility]. For questions about this culture, contact the Microbiology Laboratory at [phone]. Interpretive data was last revised on 24. us Jonathan Lentz DO LAB MICROBIOLOGY - GENERAL ORDERABLES Final Result PAVEL [address]509 [facility] [place] [address] * Blood culture Blood (10/17/2024 3:10 PM CDT) Report Final Report: No growth Comment:Testing performed by : [facility], [address] [facility], [place]., [address] Blood 10/17/2024 3:10 PM CDT 10/17/2024 7:[address] [facility] [place] - 10/22/2024 7:01 AM CDT Collection->Peripheral 1. [...] performance characteristics have been verified by the [facility]. For questions about this culture, contact the Microbiology Laboratory at [phone]. Interpretive data was last revised on 24. Jonathan Lentz DO LAB MICROBIOLOGY - GENERAL ORDERABLES Final Result Performing Organization Address City/[facility] Co de Phone Number PAVEL [address] [place] [address] * (ABNORMAL) Troponin T high-sensitivity 2-hour (10/17/2024 2:55 PM CDT) Pathologist [facility] Trop T hs 133(H) <=22 ng/L Comment: Interpretive Data For further hscTnT resources including the diagnostic algorithm and an aid in interpretation, copy and paste this link: https://nrl.testcatalog.org/show/hsTrop Current Interpretive Data last revised 2020. Testing performed by: [address] [address] Trop T hs pct delta -6 % PAVEL Comment:Testing performed by : [address] [address] Trop T hs interp Equivocal PAVEL Comment:Testing performed by : [address] [address] Blood 10/17/2024 2:55 PM CDT 10/17/2024 2:59 PM CDT Eugenio Myrick DO LAB BLOOD ORDERABLES Final Result Performing Organization Address [facility] Co de Phone Number PAVEL [address] [place], [place] [id number] * Influenza A/B, RSV, and COVID-19 PCR Nasopharyngeal (10/17/2024 2:55 PM CDT) [facility] COVID-19 RNA Negative Negative Comment:Testing performed by : [address] [address] Influenza A RNA Negative Negative PAVEL Comment:Testing performed by : [address] [address] Influenza B RNA Negative Negative [facility] Comment:Testing performed by : [address] [address] RSV RNA Negative Negative [facility] Comment: Interpretive data: Testing performed by [facility]. This test is performed using the [employer] Xpert Xpress CoV-2/Flu/RSV plus assay. This is a multiplex, real-time reverse transcriptase PCR assay intended for the qualitative detection of nucleic acid from SARS-CoV-2, influenza A, influenza B, and respiratory syncytial virus. This assay has been cleared by the [place] Food and Drug administration. The performance characteristics have been verified by the [facility]. Results must be considered in the clinical context, and a negative result does not rule out infection. Interpretive Data last revised 2023 Testing performed by: [address] [address] Nasopharyngeal 10/17/2024 2: 55 PM CDT 10/17/2024 2:58 PM CDT Narrative PAVEL - 10/17/2024 3:38 PM CDT Is the Patient experiencing symptoms consistent with COVID?->Yes Li SALC[facility]O LAB MICROBIOLOGY - GENERAL RICARDO [place] Final Result [facility] [address] [facility] Department of Laboratories [place], [place] [id number] * (ABNORMAL) Sepsis Lactate w/ Reflex (10/17/2024 2:55 PM CDT) Pathologist [facility] Sepsis Lactate 2.1(H) 0.7 - 2.0 mmol/L Comment:Testing performed by : [address] [address] Blood 10/17/2024 2:55 PM CDT 10/17/2024 2:58 PM CDT Jonathan Lentz DO LAB BLOOD ORDERABLES Final Result PAVEL [address]2 [facility] [place] [address] * (ABNORMAL) Pro B-type natriuretic [...] Last Revised Date: 2018. Testing performed by: [facility], [address] [place] [address]., [address] Blood 10/17/2024 2:55 PM CDT 10/17/2024 2:59 PM CDT Jonathan Lentz DO LAB BLOOD ORDERABLES Final Result PAVEL [address] [facility] Department of Laboratories [place], [place] [id number] * XR Chest 1 Vw Portable (if [...] Virginie Conrad D.O. PS: PS Report ID: [id number] Reading Location: [id number] Procedure Note Virginie Conrad DO - 10/17/2024 [...] Virginie Conrad D.O. PS: PS Report ID: [id number] Reading Location: [place] [address] Jonathan Lentz DO IMG XR PROCEDURES Final Res ult * ECG 12 lead (10/17/2024 1:15 PM CDT) Ventricular Rate EKG/Min 101 BPM [facility] Atrial Rate 101 BPM [facility] AL-Interval (MSEC) 192 ms [facility] QRS-Interval (MSEC) 154 ms [facility] QT-Interval (MSEC) 390 ms [facility] QTc 505 ms [facility] P Peabody 85 degrees [facility] R Peabody 264 degrees [facility] T Peabody 59 degrees [facility] Diagnosis Sinus tachycardia with Premature supraventricular complexes Right bundle branch block Abnormal ECG When compared with ECG of 12-JAN-2004 11:38, Premature supraventricular complexes are now Present Right bundle branch block is now Present Confirmed by ASHLEY WYNNE M.D. ([id number]) on 10/18/2024 9:51:49 PM [facility] 10/17/2024 1:15 PM CDT 10/18/2024 9:51 PM CDT Jonathan Lentz DO ECG ORDERABLES Final Resul t [facility] * (ABNORMAL) Troponin T high-sensitivity series (baseline, 2hr, 4hr, 6hr) (10/17/2024 1:12 PM CDT) Trop T hs 142(H) <=22 ng/L Comment: Interpretive Data For further hscTnT resources including the diagnostic algorithm and an aid in interpretation, copy and paste this link: https://nrl.testcatalog.org/show/hsTrop Current Interpretive Data last revised 2020. Testing performed by: [facility], [address] [place] [address]., [address] Blood 10/17/2024 1:12 PM CDT 10/17/2024 1:40 PM CDT Jonathan Lentz LAB BLOOD ORDERABLES Final Result PAVEL [address] [facility] [place] [address] * (ABNORMAL) eGFR (10/17/2024 1:12 [...] was last reviewed 2021. Testing performed by: [facility], [address] [place] [address]., [address] Blood 10/17/2024 1:12 PM CDT 10/17/2024 1:40 PM CDT Jonathan Lentz DO LAB BLOOD ORDERABLES Final Result PAVEL [address] [facility] [place] [address] * (ABNORMAL) Differential, auto (10/17/2024 1:12 PM CDT) Neutrophil abs 13.0(H) 1.5 - 6.5 K/cumm Comment:Testing performed by : [address] [address] Imm gran abs 0.1 0.0 - 0.1 K/cumm PAVEL Comment:Testing performed by : [address] [address] Lymphocyte abs 0.6(L) 0.8 - 3.3 K/cumm PAVEL Comment:Testing performed by : [address] [address] Monocyte abs 1.5(H) 0.2 - 0.8 K/cumm PAVEL Comment:Testing performed by : [address] [address] Eosinophil abs 0.0 0.0 - 0.5 K/cumm PAVEL Comment:Testing performed by : [address] [address] Basophil abs 0.0 0.0 - 0.1 K/cumm PAVEL Comment:Testing performed by : [address] [address] Neutrophil pct 85.3 % PAVEL Comment: Interpretive Data Percent cell count reference ranges are not reported, since discordance with absolute values may lead to misinterpretation of CBC data. Current Interpretive Data was last revised on 2017. Testing performed by: [address] [address] Imm gran pct 0.6 % PAVEL Comment: Interpretive Data Percent cell count reference ranges are not reported, since discordance with absolute values may lead to misinterpretation of CBC data. Current Interpretive Data was last revised on 2017. Testing performed by: [address] [address] Lymphocyte pct 3.9 % [facility] Comment: Interpretive Data Percent cell count reference ranges are not reported, since discordance with absolute values may lead to misinterpretation of CBC data. Current Interpretive Data was last revised on 2017. Testing performed by: [address] [address] Monocyte pct 10.0 % [facility] Comment: Interpretive Data Percent cell count reference ranges are not reported, since discordance with absolute values may lead to misinterpretation of CBC data. Current Interpretive Data was last revised on 2017. Testing performed by: [address] [address] Eosinophil pct 0.1 % [facility] Comment: Interpretive Data Percent cell count reference ranges are not reported, since discordance with absolute values may lead to misinterpretation of CBC data. Current Interpretive Data was last revised on 2017. Testing performed by: [address] [address] Basophil pct 0.1 % [facility] Comment: Interpretive Data Percent cell count reference ranges are not reported, since discordance with absolute values may lead to misinterpretation of CBC data. Current Interpretive Data was last revised on 2017. Testing performed by: [address] [address] Blood 10/17/2024 1:12 PM CDT 10/17/2024 1:40 PM CDT Jonathan Lentz DO LAB BLOOD ORDERABLES Final Result PAVEL 7[address] [facility] Department [place] [address] * (ABNORMAL) CBC with auto differential (10/17/2024 1:12 PM CDT) WBC 15.3(H) 3.8 - 9.9 K/cumm Comment:Testing performed by : [address] [address] Hgb 9.7(L) 13.0 - 17.5 g/dL PAVEL Comment:Testing performed by : [address] [address] Hct 29.8(L) 38.9 - 50.3 % PAVEL Comment:Testing performed by : [address] [address] Plt 348 150 - 400 K/cumm PAVEL Comment:Testing performed by : [address] [address] MPV 9.8 9.1 - 12.3 fL PAVEL Comment:Testing performed by : [address] [address] RBC 3.24(L) 4.30 - 5.80 M/cumm PAVEL Comment:Testing performed by : [address] [address] MCV 92.0 81.3 - 96.4 fL PAVEL Comment:Testing performed by : [address] [address] MCH 29.9 27.1 - 33.3 pg PAVEL Comment:Testing performed by : [address] [address] MCHC 32.6 32.3 - 35.7 g/dL PAVEL Comment:Testing performed by : [address] [address] RDW CV 15.0(H) 11.1 - 14.9 % PAVEL Comment:Testing performed by : [address], [address] RDW SD 51.2(H) 35.7 - 48.1 fL PAVEL Comment:Testing performed by : [address], [address] NRBC abs 0.00 0.00 - 0.01 K/cumm PAVEL Comment:Testing performed by : [address] [address] Blood 10/17/2024 1:12 PM CDT 10/17/2024 1:40 PM CDT Jonathan Lentz LAB BLOOD ORDERABLES Final Result PAVEL [address] [address] * Magnesium (10/17/2024 1:12 PM CDT) Pathologist [facility] Magnesium 1.5 1.4 - 2.5 mg/dL Comment:Testing performed by : [address] [address] Blood 10/17/2024 1:12 PM CDT 10/17/2024 1:40 PM CDT Jonathan Lentz LAB BLOOD ORDERABLES Final Result Performing Organization Address City/[facility] Co de Phone Number PAVEL [address] [address] * (ABNORMAL) Comprehensive metabolic panel (10/17/2024 1:12 PM CDT) [facility] Sodium 136 135 - 145 mmol/L Comment:Testing performed by : [address] [address] Potassium, pl 4.5 3.3 - 4.9 mmol/L PAVEL Comment: Hemolyzed; Potassium value may be falsely elevated by as much as 1.0 mmol/L. Suggest redraw and reanalysis. Testing performed by: [address] [address] Chloride 98 97 - 110 mmol/L PAVEL Comment:Testing performed by : [address] [address] CO2 23 22 - 32 mmol/L PAVEL Comment:Testing performed by : [address] [address] Anion gap 15 2 - 15 mmol/L PAVEL Comment:Testing performed by : [address] [address] BUN 56(H) 6 - 25 mg/dL PAVEL Comment:Testing performed by : [address] [address] Creatinine 4.86(H) 0.80 - 1.30 mg/dL [facility] Comment:Testing performed by : [address] [address] Glucose 119 70 - 199 mg/dL [facility] Comment: Interpretive Data Fasting glucose >/= [...] was last revised 2022. Testing performed by: [address] [address] Calcium 10.5(H) 8.5 - 10.3 mg/dL [facility] Comment:Testing performed by : [address] [address] Bilirubin, total 0.6 0.1 - 1.2 mg/dL [facility] Comment:Testing performed by : [address] [address] Protein, pl 7.3 6.5 - 8.5 g/dL [facility] Comment:Testing performed by : [address] [address] Albumin 3.6 3.5 - 5.0 g/dL [facility] Comment:Testing performed by : [address] [address] Alk phos 91 40 - 130 Units/L [facility] Comment:Testing performed by : [address] [address] ALT 22 7 - 55 Units/L [facility] Comment:Testing performed by : [address] [address] AST 29 10 - 50 Units/L [facility] Comment: Hemolyzed; result may be falsely elevated Testing performed by: [address] [address] Blood 10/17/2024 1:12 PM CDT 10/17/2024 1:40 PM CDT Jonathan Angel Brownhu LAB BLOOD ORDERABLES Final Result Performing Organization Address City/State/[facility] Co pa Phone Number YUNIORNER [address] [facility] [place] [address] from Last 3 Months Insurance [facility] [employer] [employer] [facility] Address: [id number] [place] [address] [facility] [employer] [facility] Address: [address] [address] [place] [address] ([address] [address] [facility] [employer] [facility] Address: [facility] [address] [place] [address] Advance Directives For more information, please contact: [phone] * Full Code (Latest Code Status on File) Date Activated Date Inactivated Comments 10/17/2024 7:52 PM 10/27/2024 6:57 PM Care Teams Gis Professor Relationship Specialty Start Date End Date Soraya Jauregui MD [address] [place] [address] PCP - General Internal Medicine 03/29/24
--- OUTSIDE RECORDS SUMMARY | 2024-12-23 17:12 | XMS_ITS | Clinical Summary ---
Author Organization [facility] doshi Address [address] [place] [address] Phone Care Team Providers Care Bilingual Interpreter Name Role Phone Orlando Lara MD Primary Care Provider [phone] Allergies No known active allergies Medications Multiple [...] Type Department Care Team Description 11/03/2024 Refill [facility] [address] [place] [address] Rosemary Hugo NP 10/22/2024 Refill [facility] [address] [place] [address] Uday Jones MD 10/10/2024 Refill [facility] [address] [place] [address] Rosemary Hugo NP 10/03/2024 Refill [facility] [address] [place] [address] Mackenzie eDlvalle MA from Last 3 Months Immunizations Immunization [...] Comments Blood Pressure 152/67 09/06/2024 1:27 PM MUD TRUCKER Pulse 100 09/06/2024 1:27 PM MUD TRUCKER Temperature 36.1 C (97 F) 03/12/2022 8:48 AM CDT Respiratory Rate - - Oxygen Saturation - - Inhaled Oxygen Concentration - - Weight 123 kg (271 lb) 09/06/2024 1:27 PM MUD TRUCKER Height 188 cm (6' 2 ) 09/06/2024 1:27 PM MUD TRUCKER Body Mass Index 34.79 09/06/2024 1:27 PM MUD TRUCKER Plan of Treatment Upcoming Encounters Date Type Department Care Team (Late st Contact Info) Description 01/03/2025 1:40 PM CDT Office Visit [facility] [address], [address] [place] [address] Rosemary Hugo, SENIOR QA TESTER [address] [address] Health Maintenance Due Date Last Done Comments Pneumococcal PPSV23/PCV13 65 + Years / High and Highest Risk (2 of 4 - PPSV23) 08/27/2018 07/02/2018 Influenza Vaccine (Season Ended) 2025 07/15/20 22 Insurance [employer] MED[employer]ARE Care Teams Bilingual Interpreter Relationship Specialty Start Date End Date Orlando Lara MD [address] [id number] PCP - General 09/07/24
--- OUTSIDE RECORDS SUMMARY | 2024-12-23 17:13 | XMS_ITS ---
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 03/21/2024 Chronic obstructive pulmonary disease 03/21/2024 CKD (chronic kidney disease), stage V 03/21/2024 Secondary hyperparathyroidism of renal origin Asymptomatic stenosis of left carotid artery Assessment & Plan (09/01/2024 10:18 AM 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 Patient unable to answer 11/10/2024 Do you belong to any clubs o r organizations such as anabaptist groups, unions, fraternal or athletic groups, or [...] any time in the past 12 [facility], were you homeless or living in a [...] on file Legal Sex Male 8:02 PM METALLURGICAL SPECIALIST Gender Identity Not on file Sexual [...] FVC POST 4.06 3.52 - 6.12 L [facility] FEV1 POST 1.95(A) 2.52 - 4.52 L [facility] [id number] 48.03(A) 60.59 - 86.91 % [facility] [id number]% POST 0.68(A) 1.02 - 4.65 L/s [facility] PEF POST 3.36(A) 6.67 - 10.66 L/s [facility] DLCOc SB 8.46(A) 23.68 - 37.54 ml/(min*mm Hg) [facility] DLCO/VA PRE 1.70(A) 2.75 - 4.77 ml/(min*mm Hg*L) [facility] VA 4.99(A) 7.99 - 7.99 L [facility] TLC PRE 8.85 6.99 - 9.29 L [facility] VC PRE 3.88(A) 3.98 - 5.82 L [facility] IC PRE 2.83(A) 3.76 - 3.76 L [facility] FRC PL PRE 6.02(A) 3.05 - 5.02 L [facility] ERV PRE 1.05(A) 1.14 - 1.14 L [facility] RV PRE 4.97(A) 2.22 - 3.57 L [facility] VTG 6.09 L [facility] RAW PRE 4.02(A) 3.06 - 3.06 cmH2O*s/L [facility] FVC PRE 3.88 3.52 - 6.12 L [facility] FEV1 PRE 1.94(A) 2.52 - 4.52 L [facility] [id number] 50.01(A) 60.59 - 86.91 % [facility] ANX12-77% PRE 0.49(A) 1.02 - 4.65 L/s [facility] PEF PRE 3.40(A) 6.67 - 10.66 L/s [facility] Anatomical Region Laterality Modality PFT 11/22/2024 [...] MD, FCCP Pulmonary and Critical Care Medicine [facility] Rigoberto Croft MD PFT [...] AM CDT 10/27/2024 2:57 AM CDT Carmen aWlter MD LAB BLOOD ORDERABLES Fin al Result [facility] [address] [facility] [place] [address] * (ABNORMAL) Differential, auto (10/27/2024 2:44 AM CDT) Pathologist [facility] Neutrophil abs 24.2(H) 1.5 - 6.5 K/cumm Imm gran abs 1.2(H) 0.0 - 0.1 K/cumm [facility] Lymphocyte abs 1.9 0.8 - 3.3 K/cumm [facility] Monocyte abs 1.3(H) 0.2 - 0.8 K/cumm [facility] Eosinophil abs 0.1 0.0 - 0.5 K/cumm [facility] Basophil abs 0.1 0.0 - 0.1 K/cumm [facility] Neutrophil pct 84.2 % [facility] Comment: Interpretive Data Percent cell count reference ranges are not reported, since discordance with absolute values may lead to misinterpretation of CBC data. Current Interpretive Data was last revised on 2017. Imm gran pct 4.1 % [facility] Comment: Interpretive Data Percent cell count reference ranges are not reported, since discordance with absolute values may lead to misinterpretation of CBC data. Current Interpretive Data was last revised on 2017. Lymphocyte pct 6.5 % [facility] Comment: Interpretive Data Percent cell count reference ranges are not reported, since discordance with absolute values may lead to misinterpretation of CBC data. Current Interpretive Data was last revised on 2017. Monocyte pct 4.5 % [facility] Comment: Interpretive Data Percent cell count reference ranges are not reported, since discordance with absolute values may lead to misinterpretation of CBC data. Current Interpretive Data was last revised on 2017. Eosinophil pct 0.2 % [facility] Comment: Interpretive Data Percent cell count reference ranges are not reported, since discordance with absolute values may lead to misinterpretation of CBC data. Current Interpretive Data was last revised on 2017. Basophil pct 0.5 % [facility] Comment: Interpretive Data Percent cell count reference ranges are not reported, since discordance with absolute values may lead to misinterpretation of CBC data. Current Interpretive Data was last revised on 2017. Blood 10/27/2024 2:44 AM CDT 10/27/2024 2:56 AM CDT Barbara Collins MD LAB BLO OD ORDERABLES Final Result [facility] [address] [facility] [place] [address] * (ABNORMAL) CBC with auto differential (10/27/2024 2:44 AM CDT) WBC 28.7(H) 3.8 - 9.9 K/cumm Hgb 10.1(L) 13.0 - 17.5 g/dL [facility] Hct 34.7(L) 38.9 - 50.3 % [facility] Plt 298 150 - 400 K/cumm [facility] MPV 10.3 9.1 - 12.3 fL [facility] RBC 3.44(L) 4.30 - 5.80 M/cumm [facility] MCV 100.9(H) 81.3 - 96.4 fL [facility] MCH 29.4 27.1 - 33.3 pg [facility] MCHC 29.1(L) 32.3 - 35.7 g/dL [facility] RDW CV 16.1(H) 11.1 - 14.9 % [facility] RDW SD 58.0(H) 35.7 - 48.1 fL [facility] NRBC abs 0.04(H) 0.00 - 0.01 K/cumm [facility] Blood 10/27/2024 2:44 AM CDT 10/27/2024 2:56 AM CDT Barbara Collins MD LAB BLO OD ORDERABLES Final Result [facility] [address] [facility] [place] [address] * (ABNORMAL) Basic metabolic panel (10/27/2024 2:44 AM CDT) Sodium 136 135 - 145 mmol/L Potassium, pl 4.8 3.3 - 4.9 mmol/L [facility] Chloride 100 97 - 110 mmol/L [facility] CO2 17(L) 22 - 32 mmol/L [facility] Anion gap 19(H) 2 - 15 mmol/L [facility] BUN 93(H) 6 - 25 mg/dL [facility] Creatinine 6.56(H) 0.80 - 1.30 mg/dL [facility] Glucose 115 70 - 199 mg/dL [facility] Comment: Interpretive Data Fasting glucose >/= 126 [...] 2022. Calcium 8.2(L) 8.5 - 10.3 mg/dL [facility] Blood 10/27/2024 2:44 AM CDT 10/27/2024 2:57 AM CDT us Carmen Walter MD LAB BLOOD ORDERABLES Fin al Result Performing Organization Address City/[facility]/ZIP Co de Phone Number [address] [place] [address] * (ABNORMAL) eGFR (10/26/2024 2:55 AM CDT) [...] BLOOD ORDERABLES Final Result Performing Organization Address City/[facility]/ZIP Co de Phone Number [address] [place] [address] * (ABNORMAL) Differential, auto (10/26/2024 2:55 AM CDT) Pathologist [facility] Neutrophil abs 23.2(H) 1.5 - 6.5 K/cumm Imm gran abs 1.5(H) 0.0 - 0.1 K/cumm [facility] Lymphocyte abs 2.2 0.8 - 3.3 K/cumm [facility] Monocyte abs 1.2(H) 0.2 - 0.8 K/cumm [facility] Eosinophil abs 0.0 0.0 - 0.5 K/cumm [facility] Basophil abs 0.1 0.0 - 0.1 K/cumm [facility] Neutrophil pct 82.2 % [facility] Comment: Interpretive Data Percent cell count reference ranges are not reported, since discordance with absolute values may lead to misinterpretation of CBC data. Current Interpretive Data was last revised on 2017. Imm gran pct 5.3 % [facility] Comment: Interpretive Data Percent cell count reference ranges are not reported, since discordance with absolute values may lead to misinterpretation of CBC data. Current Interpretive Data was last revised on 2017. Lymphocyte pct 7.7 % [facility] Comment: Interpretive Data Percent cell count reference ranges are not reported, since discordance with absolute values may lead to misinterpretation of CBC data. Current Interpretive Data was last revised on 2017. Monocyte pct 4.4 % [facility] Comment: Interpretive Data Percent cell count reference ranges are not reported, since discordance with absolute values may lead to misinterpretation of CBC data. Current Interpretive Data was last revised on 2017. Eosinophil pct 0.1 % [facility] Comment: Interpretive Data Percent cell count reference ranges are not reported, since discordance with absolute values may lead to misinterpretation of CBC data. Current Interpretive Data was last revised on 2017. Basophil pct 0.3 % [facility] Comment: Interpretive Data Percent cell count reference ranges are not reported, since discordance with absolute values may lead to misinterpretation of CBC data. Current Interpretive Data was last revised on 2017. Blood 10/26/2024 2:55 AM CDT 10/26/2024 3:32 AM CDT Barbara Billss MD LAB BLO OD ORDERABLES Final Result Performing Organization Address [facility] Co de Phone Number [facility] [address] [place] [address] * (ABNORMAL) CBC with auto differential (10/26/2024 2:55 AM CDT) [facility] WBC 28.2(H) 3.8 - 9.9 K/cumm Hgb 9.7(L) 13.0 - 17.5 g/dL [facility] Hct 30.2(L) 38.9 - 50.3 % [facility] Plt 414(H) 150 - 400 K/cumm [facility] MPV 9.7 9.1 - 12.3 fL [facility] RBC 3.22(L) 4.30 - 5.80 M/cumm [facility] MCV 93.8 81.3 - 96.4 fL [facility] MCH 30.1 27.1 - 33.3 pg [facility] MCHC 32.1(L) 32.3 - 35.7 g/dL [facility] RDW CV 15.5(H) 11.1 - 14.9 % [facility] RDW SD 52.6(H) 35.7 - 48.1 fL [facility] NRBC abs 0.02(H) 0.00 - 0.01 K/cumm [facility] Blood 10/26/2024 2:55 AM CDT 10/26/2024 3:32 AM CDT Barbara Collins MD LAB BLO OD ORDERABLES Final Result Performing Organization Address City/[facility]/ZIP Co de Phone Number [address] [employer] [place], [place] [id number] * (ABNORMAL) Basic metabolic panel (10/26/2024 2:55 AM CDT) [facility] Sodium 139 135 - 145 mmol/L Potassium, pl 4.7 3.3 - 4.9 mmol/L [facility] Chloride 98 97 - 110 mmol/L [facility] CO2 28 22 - 32 mmol/L [facility] Anion gap 13 2 - 15 mmol/L [facility] BUN 79(H) 6 - 25 mg/dL [facility] Creatinine 5.97(H) 0.80 - 1.30 mg/dL [facility] Glucose 107 70 - 199 mg/dL [facility] Comment: Interpretive Data Fasting glucose >/= 126 [...] Calcium 9.1 8.5 - 10.3 mg/dL [facility] Blood 10/26/2024 2:55 AM CDT 10/26/2024 3:31 AM CDT us Uday Jones MD LAB BLOOD ORDERABLES Final Result [facility] [address] [facility] [place] [address] * CT Chest Abdomen Pelvis WO Contrast [...] by Jonathan Romero M.D. T: Report ID: [id number] Reading Location: [place] [address] Procedure Note Jonathan Romero MD - 10/25/2024 [...] by Jonathan Romero M.D. T: Report ID: [id number] Reading Location: [place] [address] Jah Vargas MD IMG CT PROCEDURES Final [...] LAB BLOOD ORDERABLES F inal Result [facility] [address] [facility] [place] [address] * (ABNORMAL) Hepatic function panel (10/25/2024 1:04 PM CDT) Bilirubin, total 0.4 0.1 - 1.2 mg/dL Bilirubin, direct 0.2 0.1 - 0.3 mg/dL [facility] Protein, pl 6.4(L) 6.5 - 8.5 g/dL [facility] Albumin 3.5 3.5 - 5.0 g/dL [facility] Alk phos 73 40 - 130 Units/L [facility] ALT 30 7 - 55 Units/L [facility] AST 23 10 - 50 Units/L [facility] Blood 10/25/2024 1:04 PM CDT 10/25/2024 1:13 PM CDT Narrative [facility] - 10/25/2024 1:36 PM CDT Baseline prior to apixaban initiation. us Carlos Castro MD LAB BLOOD ORDERABLES F inal Result [facility] [address] [facility] [place] [address] * XR Chest 1 View (10/25/2024 12:25 [...] signed by Oliverio GREENE T: Report ID: [id number] Reading Location: [id number] Procedure Note Oliverio Steinberg MD - 10/25/2024 [...] Oliverio Steinberg M.D. LB T: Report ID: [id number] Reading Location: [id number] Lucius Jauregui MD IMG XR PROCEDURES Final Result * INSERT TUNNELED CV CATH W/PORT OR PUMP >5YO [id number] (10/25/2024 11:38 AM CDT) Anatomical Region Laterality [...] LAB BLOOD ORDERABLES Final Resul t [facility] [address] [facility] [place] [address] * Heparin anti factor Xa [...] NP LAB BLOOD ORDERABLES Cherise l Result [facility] [address] [facility] [place] [address] * (ABNORMAL) eGFR (10/25/2024 3:26 AM CDT) [...] MD LAB BLOOD ORDERABLES Fin al Result [place] [id number] [facility] [place] [address] * (ABNORMAL) Differential, auto (10/25/2024 3:26 AM CDT) Pathologist [facility] Neutrophil abs 24.9(H) 1.5 - 6.5 K/cumm Imm gran abs 2.8(H) 0.0 - 0.1 K/cumm [facility] Lymphocyte abs 1.8 0.8 - 3.3 K/cumm [facility] Monocyte abs 1.0(H) 0.2 - 0.8 K/cumm [facility] Eosinophil abs 0.0 0.0 - 0.5 K/cumm [facility] Basophil abs 0.2(H) 0.0 - 0.1 K/cumm [facility] Neutrophil pct 81.3 % [facility] Comment: Interpretive Data Percent cell count reference ranges are not reported, since discordance with absolute values may lead to misinterpretation of CBC data. Current Interpretive Data was last revised on 2017. Imm gran pct 9.1 % [facility] Comment: Interpretive Data Percent cell count reference ranges are not reported, since discordance with absolute values may lead to misinterpretation of CBC data. Current Interpretive Data was last revised on 2017. Lymphocyte pct 5.8 % [facility] Comment: Interpretive Data Percent cell count reference ranges are not reported, since discordance with absolute values may lead to misinterpretation of CBC data. Current Interpretive Data was last revised on 2017. Monocyte pct 3.1 % [facility] Comment: Interpretive Data Percent cell count reference ranges are not reported, since discordance with absolute values may lead to misinterpretation of CBC data. Current Interpretive Data was last revised on 2017. Eosinophil pct 0.1 % [facility] Comment: Interpretive Data Percent cell count reference ranges are not reported, since discordance with absolute values may lead to misinterpretation of CBC data. Current Interpretive Data was last revised on 2017. Basophil pct 0.6 % [facility] Comment: Interpretive Data Percent cell count reference ranges are not reported, since discordance with absolute values may lead to misinterpretation of CBC data. Current Interpretive Data was last revised on 2017. Blood 10/25/2024 3:26 AM CDT 10/25/2024 3:38 AM CDT us Matteo Julian MD LAB BLOOD ORDERABLES Cherise l Result [facility] [address] [facility] [place] [address] * (ABNORMAL) CBC with auto differential (10/25/2024 3:26 AM CDT) WBC 30.5(H) 3.8 - 9.9 K/cumm Hgb 10.0(L) 13.0 - 17.5 g/dL [facility] Hct 32.0(L) 38.9 - 50.3 % [facility] Plt 285 150 - 400 K/cumm [facility] MPV 9.9 9.1 - 12.3 fL [facility] RBC 3.35(L) 4.30 - 5.80 M/cumm [facility] MCV 95.5 81.3 - 96.4 fL [facility] MCH 29.9 27.1 - 33.3 pg [facility] MCHC 31.3(L) 32.3 - 35.7 g/dL [facility] RDW CV 15.6(H) 11.1 - 14.9 % [facility] RDW SD 53.7(H) 35.7 - 48.1 fL [facility] NRBC abs 0.02(H) 0.00 - 0.01 K/cumm [facility] Blood 10/25/2024 3:26 AM CDT 10/25/2024 3:38 AM CDT Barbara Collins MD LAB BLO OD ORDERABLES Final Result [facility] [address] [facility] [place] [address] * (ABNORMAL) Basic metabolic panel (10/25/2024 3:26 AM CDT) Sodium 137 135 - 145 mmol/L Potassium, pl 5.6(H) 3.3 - 4.9 mmol/L [facility] Comment:Hemolyzed; Potassium value may be falsely elevated by as much as 1.0 mmol/L. Suggest redraw and reanalysis. Chloride 100 97 - 110 mmol/L [facility] CO2 20(L) 22 - 32 mmol/L [facility] Anion gap 17(H) 2 - 15 mmol/L [facility] BUN 78(H) 6 - 25 mg/dL [facility] Creatinine 5.26(H) 0.80 - 1.30 mg/dL [facility] Glucose 128 70 - 199 mg/dL [facility] Comment: Interpretive Data Fasting glucose >/= 126 [...] Calcium 8.4(L) 8.5 - 10.3 mg/dL [facility] Blood 10/25/2024 3:26 AM CDT 10/25/2024 3:37 AM CDT Carmen Walter MD LAB BLOOD ORDERABLES Fin al Result Performing Organization Address City/[facility]/ZIP Co de Phone Number [facility] [address] [place] [address] * Heparin anti factor Xa activity (10/24/2024 [...] ORDERABLE S Final Result Performing Organization Address City/[facility]/ZIP Co de Phone Number [facility] [place] [address] * (ABNORMAL) Heparin anti factor Xa activity (10/24/2024 2:55 PM CDT) Anti Factor Xa >1.10(C) IUnits/mL Comment: Critical value. Results called to and read back by: Critical Result called to and read back by [id number], DATE: 2024-10-24 15:38:22 BY: [id number] Interpretive Data Enoxaparin therapeutic range (peak): VTE [...] MD LAB BLOOD ORDERABLE S Final Result [facility] [address] [facility] [place] [address] * Hepatitis B core antibody, total Blood (10/24/2024 2:55 PM CDT) Hep B core IgG/IgM Nonreactive Nonreactive Comment:Testing performed by : [facility], [address] [facility], [place]., [address] Blood 10/24/2024 2:55 PM CDT 10/24/2024 5:23 PM CDT Milana Maloney MD LAB MICROBIOLOGY - GENERAL ORDERABLES Final Result [address] [address] * Hepatitis B (HBV) DNA PCR, quantitative Blood (10/24/2024 2:55 PM CDT) [facility] HBV DNA Result Not Detected [facility] Comment: The quantifiable range of this assay is 10 IU/mL to 1,000,000,000 IU/mL (1.00 log IU/mL to 9.00 log IU/mL). Testing was performed by the [employer] [id number] HBV Test version 2.0 ([employer] Testing performed at [facility] Current Interpretive Data was last revised on 2021. Testing performed by: [facility], [address] [facility] [place] [address] Blood 10/24/2024 2:55 PM CDT 10/24/2024 7:39 PM CDT Milana Maloney MD LAB MICROBIOLOGY - GENERAL ORDERABLES Final Result Performing Organization Address City/[facility]/ZIP Co de Phone Number [address] [place] [address] [facility] * Hepatitis B Surface Antigen Blood (10/24/2024 2:55 PM CDT) [facility] HepBsAg Nonreactive Nonreactive Blood 10/24/2024 2:55 PM CDT 10/24/2024 3:10 PM CDT Milana Maloney MD LAB MICROBIOLOGY - GENERAL ORDERABLES Final Result [address] [address] * ECG 12 lead (10/24/2024 8:10 AM CDT) [facility] Ventricular Rate EKG/Min 83 BPM [facility] QRS-Interval (MSEC) 152 ms [facility] QT-Interval (MSEC) 420 ms [facility] QTc 493 ms [facility] R [place] -86 degrees [facility] T [place] 85 degrees [facility] Diagnosis 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 ([id number]) on 10/24/2024 2:50:52 PM [facility] 10/24/2024 8:10 AM CDT 10/24/2024 2:50 PM CDT us August Roger MD ECG ORDERABLES Final R esult [facility] * (ABNORMAL) eGFR (10/24/2024 5:46 AM CDT) Pathologist [facility] eGFR 9(L) >=60 mL/min/1. 73 m2 Comment: [...] MD LAB BLOOD ORDERABLES Fin al Result [facility] [address] [place] [address] * Heparin anti factor Xa activity (10/24/2024 [...] LAB BLOOD ORDERABLE S Final Result [facility] [address] [place] [address] * (ABNORMAL) CBC with auto differential (10/24/2024 5:46 AM CDT) WBC 40.6(H) 3.8 - 9.9 K/cumm Hgb 9.7(L) 13.0 - 17.5 g/dL [facility] Hct 31.2(L) 38.9 - 50.3 % [facility] Plt 453(H) 150 - 400 K/cumm [facility] MPV 9.6 9.1 - 12.3 fL [facility] RBC 3.33(L) 4.30 - 5.80 M/cumm [facility] MCV 93.7 81.3 - 96.4 fL [facility] MCH 29.1 27.1 - 33.3 pg [facility] MCHC 31.1(L) 32.3 - 35.7 g/dL [facility] RDW CV 15.5(H) 11.1 - 14.9 % [facility] RDW SD 52.6(H) 35.7 - 48.1 fL [facility] NRBC abs 0.04(H) 0.00 - 0.01 K/cumm [facility] Blood 10/24/2024 5:46 AM CDT 10/24/2024 6:08 AM CDT us Barbara Collins MD LAB BLO OD ORDERABLES Final Result [place] [id number] [facility] Department of Laboratories [place], [place] [id number] * (ABNORMAL) Manual Differential (10/24/2024 5:46 AM CDT) Differential Manual Cells Counted 100 [facility] Neutrophil abs 35.3(H) 1.5 - 6.5 K/cumm [facility] Imm gran abs 2.0(H) 0.0 - 0.1 K/cumm [facility] Lymphocyte abs 2.0 0.8 - 3.3 K/cumm [facility] Monocyte abs 1.2(H) 0.2 - 0.8 K/cumm [facility] Neutrophil pct 87.0 % [facility] Comment: Interpretive Data Percent cell count reference ranges are not reported, since discordance with absolute values may lead to misinterpretation of CBC data. Current Interpretive Data was last revised on 2017. Lymphocyte pct 5.0 % [facility] Comment: Interpretive Data Percent cell count reference ranges are not reported, since discordance with absolute values may lead to misinterpretation of CBC data. Current Interpretive Data was last revised on 2017. Monocyte pct 3.0 % [facility] Comment: Interpretive Data Percent cell count reference ranges are not reported, since discordance with absolute values may lead to misinterpretation of CBC data. Current Interpretive Data was last revised on 2017. Metamyelocyte pct 5.0(H) 0.0 - 0.0 % [facility] RBC morphology Present(A) [facility] Hypochromasia 3-7/HPF(A) [facility] Poikilocytosis Moderate(A) [facility] Macrocytes 3-7/HPF(A) [facility] Elliptocytes 8-15/HPF(A) [facility] Platelet estimate Automated Count Confirmed [facility] Blood 10/24/2024 5:46 AM CDT 10/24/2024 6:08 AM CDT us Matteo Julian MD LAB BLOOD ORDERABLES Cherise l Result [facility] [address] [facility] Department of Laboratories [place], [place] [id number] * (ABNORMAL) Basic metabolic panel (10/24/2024 5:46 AM CDT) Sodium 141 135 - 145 mmol/L Potassium, pl 4.9 3.3 - 4.9 mmol/L [facility] Chloride 99 97 - 110 mmol/L [facility] CO2 26 22 - 32 mmol/L [facility] Anion gap 16(H) 2 - 15 mmol/L [facility] BUN 102(H) 6 - 25 mg/dL [facility] Creatinine 6.14(H) 0.80 - 1.30 mg/dL [facility] Glucose 122 70 - 199 mg/dL [facility] Comment: Interpretive Data Fasting glucose >/= 126 [...] LAB BLOOD ORDERABLES Fin al Result [facility] [address] [facility] [place] [address] * Heparin anti factor Xa [...] PM CDT 10/23/2024 5:15 PM CDT us [place] M. Badahman MD LAB BLOOD ORDERABLES Final R esult [facility] [place] [employer] [place] [address] * (ABNORMAL) BUN (10/23/2024 2:56 PM CDT) BUN 93(H) 6 - 25 mg/dL Blood 10/23/2024 2:56 PM CDT 10/23/2024 3:09 PM CDT Narrative [facility] - 10/23/2024 3:25 PM CDT Pre-Dialysis us Carmen Walter MD LAB BLOOD ORDERABLES Fin al Result Performing Organization Address City/[facility]/ZIP Co de Phone Number [place] [id number] [facility] [place] [address] * Blood culture Blood (10/23/2024 10:33 AM CDT) Report Final Report: No growth Comment:Testing performed by : [facility], [address] [facility], [place]., [address] Blood 10/23/2024 10:3 3 AM CDT 10/23/2024 4:02 PM [address] [facility] 10/28/2024 7:00 AM CDT From a [...] performance characteristics have been verified by the [facility] Microbiology Laboratory. For questions about this culture, contact the Microbiology Laboratory at [phone]. Interpretive data was last revised on 24. Milana Maloney MD LAB MICROBIOLOGY - GENERAL ORDERABLES Final Result Performing Organization Address [facility] Co de Phone Number [facility] [facility] Department [place] [address] * Heparin anti factor Xa activity (10/23/2024 10:26 AM CDT) [facility] Anti Factor Xa 0.52 IUnits/mL Comment: Interpretive [...] BLOOD ORDERABLES Final Result Performing Organization Address [facility]/ZIP Co de Phone Number [facility] [address] [facility] [place] [address] * Blood culture Blood (10/23/2024 10:26 AM CDT) Report Final Report: No growth Comment:Testing performed by : [facility], [address] [facility], [place]., [address] Blood 10/23/2024 10:2 6 AM CDT 10/23/2024 4:02 PM CDT N[facility]ative [facility] 10/28/2024 7:00 AM CDT 1. Blood [...] performance characteristics have been verified by the [facility] Microbiology Laboratory. For questions about this culture, contact the Microbiology Laboratory at [phone]. Interpretive data was last revised on 24. Milana Maloney MD LAB MICROBIOLOGY - GENERAL ORDERABLES Final Result Performing Organization Address City/[facility] Co de Phone Number [facility] [address] [facility] [place] [address] * (ABNORMAL) eGFR (10/23/2024 4:53 AM CDT) [...] Mclean NP LAB BLOOD ORDERABLES nal Result [facility] [address] [facility] [place] [address] * (ABNORMAL) Differential, auto (10/23/2024 4:53 AM CDT) Neutrophil abs 32.2(H) 1.5 - 6.5 K/cumm Imm gran abs 4.2(H) 0.0 - 0.1 K/cumm [facility] Lymphocyte abs 1.6 0.8 - 3.3 K/cumm [facility] Monocyte abs 1.0(H) 0.2 - 0.8 K/cumm [facility] Eosinophil abs 0.0 0.0 - 0.5 K/cumm [facility] Basophil abs 0.0 0.0 - 0.1 K/cumm [facility] Neutrophil pct 82.4 % [facility] Comment: Interpretive Data Percent cell count reference ranges are not reported, since discordance with absolute values may lead to misinterpretation of CBC data. Current Interpretive Data was last revised on 2017. Imm gran pct 10.8 % [facility] Comment: Interpretive Data Percent cell count reference ranges are not reported, since discordance with absolute values may lead to misinterpretation of CBC data. Current Interpretive Data was last revised on 2017. Lymphocyte pct 4.2 % [facility] Comment: Interpretive Data Percent cell count reference ranges are not reported, since discordance with absolute values may lead to misinterpretation of CBC data. Current Interpretive Data was last revised on 2017. Monocyte pct 2.6 % [facility] Comment: Interpretive Data Percent cell count reference ranges are not reported, since discordance with absolute values may lead to misinterpretation of CBC data. Current Interpretive Data was last revised on 2017. Eosinophil pct 0.0 % [facility] Comment: Interpretive Data Percent cell count reference ranges are not reported, since discordance with absolute values may lead to misinterpretation of CBC data. Current Interpretive Data was last revised on 2017. Basophil pct 0.0 % [facility] Comment: Interpretive Data Percent cell count reference ranges are not reported, since discordance with absolute values may lead to misinterpretation of CBC data. Current Interpretive Data was last revised on 2017. Blood 10/23/2024 4:53 AM CDT 10/23/2024 5:05 AM CDT us Matteo Julian MD LAB BLOOD ORDERABLES Cherise still Result [facility] [address] [facility] [place] [address] * Heparin anti factor Xa [...] MD LAB BLOOD ORDERABLES Fi nal Result [place] [id number] [facility] [place] [address] * (ABNORMAL) CBC with auto differential (10/23/2024 4:53 AM CDT) WBC 39.1(H) 3.8 - 9.9 K/cumm Hgb 9.5(L) 13.0 - 17.5 g/dL [facility] Hct 29.5(L) 38.9 - 50.3 % [facility] Plt 436(H) 150 - 400 K/cumm [facility] MPV 9.3 9.1 - 12.3 fL [facility] RBC 3.20(L) 4.30 - 5.80 M/cumm [facility] MCV 92.2 81.3 - 96.4 fL [facility] MCH 29.7 27.1 - 33.3 pg [facility] MCHC 32.2(L) 32.3 - 35.7 g/dL [facility] RDW CV 15.2(H) 11.1 - 14.9 % [facility] RDW SD 50.6(H) 35.7 - 48.1 fL [facility] NRBC abs 0.05(H) 0.00 - 0.01 K/cumm [facility] Blood 10/23/2024 4:53 AM CDT 10/23/2024 5:05 AM CDT Barbara Collins MD LAB BLO OD ORDERABLES Edited Result - Final Performing Organization Address [facility] de Phone Number [address] [place] [address] * Manual Differential (10/23/2024 4:53 AM CDT) Differential Auto RBC morphology Consistent with RBC Indicies [facility] Platelet estimate Automated Count Confirmed [facility] Blood 10/23/2024 4:53 AM CDT 10/23/2024 5:05 AM CDT Matteo Julian MD LAB BLOOD ORDERABLES Cherise l Result Performing Organization Address [facility] Co de Phone Number [address] [place] [address] * (ABNORMAL) Phosphorus (10/23/2024 4:53 AM CDT) Pathologist [facility] Phosphorus, pl 5.0(H) 2.3 - 4.5 mg/dL Blood 10/23/2024 4:53 AM CDT 10/23/2024 5:05 AM CDT Orlando Mclean NP LAB BLOOD ORDERABLES Fi nal Result Performing Organization Address [facility] Co de Phone Number [address] [place] [address] * Magnesium (10/23/2024 4:53 AM CDT) Pathologist [facility] Magnesium 1.9 1.4 - 2.5 mg/dL Blood 10/23/2024 4:53 AM CDT 10/23/2024 5:05 AM CDT Orlando Mclean NP LAB BLOOD ORDERABLES Fi nal Result Performing Organization Address [facility] Phone Number [facility] [address] [facility] [place] [address] * (ABNORMAL) Comprehensive metabolic panel (10/23/2024 4:53 AM CDT) Sodium 140 135 - 145 mmol/L Potassium, pl 4.5 3.3 - 4.9 mmol/L [facility] Chloride 100 97 - 110 mmol/L [facility] CO2 24 22 - 32 mmol/L [facility] Anion gap 16(H) 2 - 15 mmol/L [facility] BUN 80(H) 6 - 25 mg/dL [facility] Creatinine 5.27(H) 0.80 - 1.30 mg/dL [facility] Glucose 140 70 - 199 mg/dL [facility] Comment: Interpretive Data Fasting glucose >/= 126 [...] Calcium 8.5 8.5 - 10.3 mg/dL [facility] Bilirubin, total 0.3 0.1 - 1.2 mg/dL [facility] Protein, pl 5.8(L) 6.5 - 8.5 g/dL [facility] Albumin 3.0(L) 3.5 - 5.0 g/dL [facility] Alk phos 78 40 - 130 Units/L [facility] ALT 57(H) 7 - 55 Units/L [facility] AST 33 10 - 50 Units/L [facility] Blood 10/23/2024 4:53 AM CDT 10/23/2024 5:05 AM CDT Orlando Mclean NP LAB BLOOD ORDERABLES Fi nal Result [facility] [address] [facility] [place] [address] * US Vein Mapping Duplex Upper Extremity Bilateral (10/22/2024 5:21 PM CDT) Anatomical Region Laterality Modality Vascular Bilateral Ultrasound 10/22/2024 4:17 PM CDT Narrative 10/25/2024 11:32 AM CDT Upper Extremity Vein Mapping Report Patient Name: LAMIN BETTS Account #: : [id number] ([id number]) Gender: M Study Date: 10/22/2024 04:17:45 PM Accession #: General Merchandise Manager: Yocasta Hebert Quality: Adequate Ref Provider: PROCEDURES: [...] Study Date: 10/22/2024 04:17:45 PM Accession #: General Merchandise Manager: Yocasta Hebert Quality: Adequate Ref Provider: PROCEDURES: [...] Jauregui MD 10/24/2024 7:41:03 AM CDT us Mliana Maloney MD [facility] US PROCEDURES F inal Result * XR [...] Thomas Simons M.D. RW T: Report ID: [id number] Reading Location: [id number] Procedure Note Thomas Simons MD - 10/22/2024 [...] Thomas Simons M.D. RW T: Report ID: [id number] Reading Location: [id number] Orlando Mclean NP IMG XR PROCEDURES Final Result * Critical Care (10/22/2024 3:18 PM CDT) Narrative Ricardo Hu MD - 10/22/2024 3:18 PM CDT Ricardo Hu MD 10/23/2024 9:59 AM Critical Care Performed by: Orlando Mclean NP Authorized by: Orlando Mclean NP CRITICAL CARE: Team: [facility] Shift: AM Level of Billing: Critical Care [...] plan with the ICU team and other medical/internal control consultant staff, making frequent assessments and decisions [...] IN CLINIC/BEDSIDE ORDER SARAH Final Result * [place] [facility] NON-TUNNELED CENTRAL VENOUS CATH AGE 5 YR/> (10/22/2024 3:15 PM CDT) Narrative Ricardo Hu MD - 10/22/2024 3:15 PM CDT Ricardo Hu MD 10/23/2024 9:59 AM Central Line Insertion Date/Time: 10/22/2024 3:15 PM Performed by: Orlando Mclean NP Authorized by: Ricardo Hu MD [place] Protocol: RN Notified of Procedure: yes Informed [...] Catheter type: Dialysis catheter Catheter size: 13 senegalese. Needle inserted, vein idenitified then guidewire inserted [...] by Orlando Doherty M.D. T: Report ID: [id number] Reading Location: [id number] Procedure Note Orlando Doherty, DO - 10/22/2024 [...] by Orlando Doherty M.D. T: Report ID: [id number] Reading Location: [id number] us Milana Maloney MD IMG XR PROCEDURES F inal Result * (ABNORMAL) BUN (10/22/2024 11:48 AM CDT) BUN 100(H) 6 - 25 mg/dL Blood 10/22/2024 11:4 8 AM CDT 10/22/2024 12:38 PM CDT Narrative [facility] - 10/22/2024 1:07 PM CDT Pre-Dialysis Uday Jones MD LAB BLOOD ORDERABLES Final Result Performing Organization Address [facility] de Phone Number [facility] [address] [place] [address] * (ABNORMAL) eGFR (10/22/2024 6:32 AM CDT) [...] BLOOD ORDERABLES Final Result Performing Organization Address [facility] Co de Phone Number PAVEL [address] [place] [address] * Heparin anti factor Xa activity (10/22/2024 6:32 AM CDT) Pathologist [facility] Anti Factor Xa <0.10 IUnits/mL Comment: Patient not on heparin at time of collection per [id number] (RN). 10/22/24 at 0845 by [id number]. Interpretive Data Enoxaparin therapeutic range (peak): VTE [...] LAB BLOOD ORDERABLES Cherise l Result [facility] [address] [facility] [place] [address] * (ABNORMAL) CBC with auto differential (10/22/2024 6:32 AM CDT) Pathologist [facility] WBC 36.2(H) 3.8 - 9.9 K/cumm Hgb 10.5(L) 13.0 - 17.5 g/dL [facility] Hct 34.0(L) 38.9 - 50.3 % [facility] Plt 514(H) 150 - 400 K/cumm [facility] MPV 9.4 9.1 - 12.3 fL [facility] RBC 3.63(L) 4.30 - 5.80 M/cumm [facility] MCV 93.7 81.3 - 96.4 fL [facility] MCH 28.9 27.1 - 33.3 pg [facility] MCHC 30.9(L) 32.3 - 35.7 g/dL [facility] RDW CV 15.3(H) 11.1 - 14.9 % [facility] RDW SD 52.9(H) 35.7 - 48.1 fL [facility] NRBC abs 0.16(H) 0.00 - 0.01 K/cumm [facility] Blood 10/22/2024 6:32 AM CDT 10/22/2024 7:06 AM CDT Barbara Collins MD LAB BLO OD ORDERABLES Edited Result - Final [facility] [address] [facility] [place] [address] * (ABNORMAL) Manual Differential (10/22/2024 6:32 AM CDT) Differential Manual Cells Counted 100 [facility] Neutrophil abs 29.7(H) 1.5 - 6.5 K/cumm [facility] Imm gran abs 4.0(H) 0.0 - 0.1 K/cumm [facility] Lymphocyte abs 2.5 0.8 - 3.3 K/cumm [facility] Monocyte abs 0.0(L) 0.2 - 0.8 K/cumm [facility] Neutrophil pct 82.0 % [facility] Comment: Interpretive Data Percent cell count reference ranges are not reported, since discordance with absolute values may lead to misinterpretation of CBC data. Current Interpretive Data was last revised on 2017. Lymphocyte pct 4.0 % [facility] Comment: Interpretive Data Percent cell count reference ranges are not reported, since discordance with absolute values may lead to misinterpretation of CBC data. Current Interpretive Data was last revised on 2017. Metamyelocyte pct 11.0(H) 0.0 - 0.0 % [facility] Variant lymph pct 3.0(H) 0.0 - 0.0 % [facility] RBC morphology Present(A) [facility] Hypochromasia 8-15/HPF(A) [facility] Anisocytosis Slight(A) [facility] Microcytes 8-15/HPF(A) [facility] Elliptocytes 3-7/HPF(A) [facility] Platelet estimate Automated Count Confirmed [facility] Blood 10/22/2024 6:32 AM CDT 10/22/2024 7:06 AM CDT us Matteo Julian MD LAB BLOOD ORDERABLES Cherise l Result [place] [id number] [facility] [place] [address] * (ABNORMAL) Basic metabolic panel (10/22/2024 6:32 AM CDT) Sodium 141 135 - 145 mmol/L Potassium, pl 4.4 3.3 - 4.9 mmol/L [facility] Chloride 98 97 - 110 mmol/L [facility] CO2 25 22 - 32 mmol/L [facility] Anion gap 18(H) 2 - 15 mmol/L [facility] BUN 110(H) 6 - 25 mg/dL [facility] Creatinine 6.30(H) 0.80 - 1.30 mg/dL [facility] Glucose 164 70 - 199 mg/dL [facility] Comment: Interpretive Data Fasting glucose >/= 126 [...] Calcium 9.3 8.5 - 10.3 mg/dL [facility] Blood 10/22/2024 6:32 AM CDT 10/22/2024 7:06 AM CDT us Uday Jones MD LAB BLOOD ORDERABLES Final Result [address] [place] [address] * ECG 12 lead (10/22/2024 12:45 AM CDT) Ventricular Rate EKG/Min 76 BPM [facility] QRS-Interval (MSEC) 158 ms [facility] QT-Interval (MSEC) 450 ms [facility] QTc 506 ms [facility] R [place] -80 degrees [facility] T [place] 86 degrees [facility] Diagnosis Atrial fibrillation Right bundle branch block Left anterior fascicular block Bifascicular block Abnormal ECG When compared with ECG of 19-OCT-2024 12:28, Vent. rate has decreased BY 46 BPM Right bundle branch block has replaced Non-specific intra-ventricul ar conduction block Confirmed by ASHLEY WYNNE M.D. ([id number]) on 10/23/2024 9:23:45 AM [facility] 10/22/2024 12:4 5 AM CDT 10/23/2024 9:23 AM CDT [facility] Hugo BLOOD OR BLOOD BANK TECHNICIAN ECG ORDERABLES Final Re sult [facility] * (ABNORMAL) Lipid panel (10/21/2024 6:34 PM CDT) Pathologist [facility] Cholesterol 124 30 - 199 mg/dL Comment: [...] LAB BLOOD ORDERABLE S Final Result [facility] [address] [facility] [place] [address] * INSERT TUNNELED CV CATH W/PORT OR PUMP >[id number] (10/21/2024 10:01 AM CDT) Anatomical Region Laterality [...] LAB BLOOD ORDERABLES Cherise l Result [facility] [address] [facility] [place] [address] * Heparin anti factor Xa [...] ORDERABLES Cherise l Result Performing Organization Address [facility] Co de Phone Number [place] [id number] [facility] [place] [address] * (ABNORMAL) CBC with auto differential (10/21/2024 6:44 AM CDT) [facility] WBC 32.5(H) 3.8 - 9.9 K/cumm Hgb 9.6(L) 13.0 - 17.5 g/dL [facility] Hct 29.3(L) 38.9 - 50.3 % [facility] Plt 461(H) 150 - 400 K/cumm [facility] MPV 9.3 9.1 - 12.3 fL [facility] RBC 3.28(L) 4.30 - 5.80 M/cumm [facility] MCV 89.3 81.3 - 96.4 fL [facility] MCH 29.3 27.1 - 33.3 pg [facility] MCHC 32.8 32.3 - 35.7 g/dL [facility] RDW CV 15.0(H) 11.1 - 14.9 % [facility] RDW SD 49.5(H) 35.7 - 48.1 fL [facility] NRBC abs 0.10(H) 0.00 - 0.01 K/cumm [facility] Blood 10/21/2024 6:44 AM CDT 10/21/2024 7:06 AM CDT Barbara Collins MD LAB BLO OD ORDERABLES Edited Result - Final Performing Organization Address City/[facility]/ZIP Co de Phone Number [address] [place], [place] [id number] * (ABNORMAL) Manual Differential (10/21/2024 6:44 AM CDT) Pathologist [facility] Differential Manual Cells Counted 100 [facility] Neutrophil abs 26.3(H) 1.5 - 6.5 K/cumm [facility] Imm gran abs 1.6(H) 0.0 - 0.1 K/cumm [facility] Lymphocyte abs 3.2 0.8 - 3.3 K/cumm [facility] Monocyte abs 1.3(H) 0.2 - 0.8 K/cumm [facility] Neutrophil pct 81.0 % [facility] Comment: Interpretive Data Percent cell count reference ranges are not reported, since discordance with absolute values may lead to misinterpretation of CBC data. Current Interpretive Data was last revised on 2017. Lymphocyte pct 10.0 % [facility] Comment: Interpretive Data Percent cell count reference ranges are not reported, since discordance with absolute values may lead to misinterpretation of CBC data. Current Interpretive Data was last revised on 2017. Monocyte pct 4.0 % [facility] Comment: Interpretive Data Percent cell count reference ranges are not reported, since discordance with absolute values may lead to misinterpretation of CBC data. Current Interpretive Data was last revised on 2017. Metamyelocyte pct 2.0(H) 0.0 - 0.0 % [facility] Myelocyte pct 3.0(H) 0.0 - 0.0 % [facility] RBC morphology Consistent with RBC Indicies [facility] Platelet estimate Automated Count Confirmed [facility] Blood 10/21/2024 6:44 AM CDT 10/21/2024 7:06 AM CDT us Matteo Julian MD LAB BLOOD ORDERABLES Cherise l Result [facility] [address] [facility] [place] [address] * (ABNORMAL) Comprehensive metabolic panel (10/21/2024 6:44 AM CDT) Pathologist [facility] Sodium 143 135 - 145 mmol/L Potassium, pl 4.4 3.3 - 4.9 mmol/L [facility] Chloride 100 97 - 110 mmol/L [facility] CO2 23 22 - 32 mmol/L [facility] Anion gap 20(H) 2 - 15 mmol/L [facility] BUN 122(H) 6 - 25 mg/dL [facility] Creatinine 6.64(H) 0.80 - 1.30 mg/dL [facility] Glucose 102 70 - 199 mg/dL [facility] Comment: Interpretive Data Fasting glucose >/= 126 [...] Calcium 9.4 8.5 - 10.3 mg/dL [facility] Bilirubin, total 0.2 0.1 - 1.2 mg/dL [facility] [facility] Protein, pl 6.2(L) 6.5 - 8.5 g/dL [facility] Albumin 3.3(L) 3.5 - 5.0 g/dL [facility] Alk phos 103 40 - 130 Units/L [facility] ALT 143(H) 7 - 55 Units/L [facility] AST 112(H) 10 - 50 Units/L [facility] Blood 10/21/2024 6:44 AM CDT 10/21/2024 7:11 AM CDT us Matteo Julian MD LAB BLOOD ORDERABLES Cherise still Result [facility] [address] [facility] Department of Laboratories [place], [place] [id number] * (ABNORMAL) eGFR (10/20/2024 2:38 PM CDT) Pathologist [facility] eGFR 8(L) >=60 mL/min/1. 73 m2 Comment: [...] was last reviewed 2021. Testing performed by: [address] [address] Blood 10/20/2024 2:38 PM CDT 10/20/2024 2:57 PM CDT August Roger MD LAB BLOOD ORDERABLES Fi nal Result Performing Organization Address [facility] de Phone Number PAVEL ROSADO [address] [facility] Department of Laboratories [place], [place] [id number] * (ABNORMAL) Protime-INR (10/20/2024 2:38 PM CDT) PT 16.1(H) 12.0 - 14.6 sec Comment: Ref Range High Testing performed by: [address] [address] INR 1.3(H) 0.9 - 1.2 PAVEL ROSADO Comment: Ref Range High Interpretive data Oral anticoagulant therapeutic ranges: Venous thromboembolism prophylaxis or treatment: 2.0-3.0 CARDIOLOGY Standard range: 2.0-3.0 High-intensity range: 2.5-3.5 Refer to indication-specific guidelines for appropriate target ranges for prosthetic heart valve replacement. Current interpretive data was last revised on 2019. Testing performed by: [address] [address] Blood 10/20/2024 2:38 PM CDT 10/20/2024 2:57 PM CDT Narrative PAVEL ROSADO - 10/20/2024 3:12 PM CDT Baseline prior to apixaban initiation. August Roger MD LAB BLOOD ORDERABLES Fi nal Result Performing Organization Address [facility] de Phone Number [facility] [address] [place] [address] * (ABNORMAL) Creatinine (10/20/2024 2:38 PM CDT) Creatinine 6.56(H) 0.80 - 1.30 mg/dL Comment:Testing performed by : [address] [address] Blood 10/20/2024 2:38 PM CDT 10/20/2024 2:57 PM CDT Narrative PAVEL - 10/20/2024 3:26 PM CDT Baseline prior to apixaban initiation. August Roger MD LAB BLOOD ORDERABLES nal Result Performing Organization Address [facility] de Phone Number YUNIOR[address] [place] [address] * (ABNORMAL) Hepatic function panel (10/20/2024 2:38 PM CDT) Pathologist [facility] Bilirubin, total 0.2 0.1 - 1.2 mg/dL Comment:Testing performed by : [address] [address] Bilirubin, direct <0.2 0.1 - 0.3 mg/dL PAVEL Comment:Testing performed by : [address] [address] Protein, pl 7.0 6.5 - 8.5 g/dL PAVEL Comment:Testing performed by : [address] [address] Albumin 3.5 3.5 - 5.0 g/dL PAVEL Comment:Testing performed by : [address] [address] Alk phos 116 40 - 130 Units/L PAVEL Comment:Testing performed by : [address] [address] ALT 119(H) 7 - 55 Units/L PAVEL Comment:Testing performed by : [address] [place] [address] AST 95(H) 10 - 50 Units/L PAVEL Comment:Testing performed by : [facility], [address] [place] [address]., [address] Blood 10/20/2024 2:38 PM CDT 10/20/2024 2:57 PM CDT Narrative PAVEL - 10/20/2024 3:26 PM CDT Baseline prior to apixaban initiation. August Roger MD LAB BLOOD ORDERABLES Fi nal Result PAVEL [address] [facility] [place] [address] * Hepatitis panel, acute Blood [...] - GENER AL ORDERABLES Final Result PAVEL [facility] [place] [address] * Hepatitis B surface antibody (immune status) [...] - GENER AL ORDERABLES Final Result PAVEL [facility] [place] [address] * Heparin anti factor Xa activity (10/20/2024 9:04 AM CDT) Pathologist [facility] Anti Factor Xa 0.54 IUnits/mL Comment: Interpretive [...] last revised on 2019. Testing performed by: [facility], [address] [place] [address]., [address] Blood 10/20/2024 9:04 AM CDT 10/20/2024 9:08 AM CDT us Matteo Julian MD LAB BLOOD ORDERABLES Cherise still Result PAVEL [address] [facility] [place] [address] * CT Chest WO Contrast (10/20/2024 6:34 [...] Winston Kinney M.D. RB: SABINO Report ID: [id number] Reading Location: [place] [address] Procedure Note Winston Kinney MD - 10/20/2024 [...] Winston Kinney M.D. RB: SABINO Report ID: [id number] Reading Location: [place] [address] Rigoberto Croft MD IM CT PROCEDURES Cherise [...] was last reviewed 2021. Testing performed by: [address] [address] Blood 10/20/2024 3:52 AM CDT 10/20/2024 4:31 AM CDT us Matteo Julian MD LAB BLOOD ORDERABLES Cherise still Result PAVEL [address] [facility] [place] [address] * (ABNORMAL) Differential, auto (10/20/2024 3:52 AM CDT) Neutrophil abs 21.5(H) 1.5 - 6.5 K/cumm Comment:Testing performed by : [address] [address] Imm gran abs 2.0(H) 0.0 - 0.1 K/cumm PAVEL Comment:Testing performed by : [address] [address] Lymphocyte abs 1.3 0.8 - 3.3 K/cumm PAVEL Comment:Testing performed by : [address] [address] Monocyte abs 0.8 0.2 - 0.8 K/cumm PAVEL Comment:Testing performed by : [address] [address] Eosinophil abs 0.1 0.0 - 0.5 K/cumm PAVEL Comment:Testing performed by : [address] [address] Basophil abs 0.2(H) 0.0 - 0.1 K/cumm PAVEL Comment:Testing performed by : [address] [address] Neutrophil pct 83.3 % PAVEL Comment: Interpretive Data Percent cell count reference ranges are not reported, since discordance with absolute values may lead to misinterpretation of CBC data. Current Interpretive Data was last revised on 2017. Testing performed by: [address] [address] Imm gran pct 7.7 % PAVEL Comment: Interpretive Data Percent cell count reference ranges are not reported, since discordance with absolute values may lead to misinterpretation of CBC data. Current Interpretive Data was last revised on 2017. Testing performed by: [address] [address] Lymphocyte pct 5.1 % PAVEL Comment: Interpretive Data Percent cell count reference ranges are not reported, since discordance with absolute values may lead to misinterpretation of CBC data. Current Interpretive Data was last revised on 2017. Testing performed by: [address] [address] Monocyte pct 3.0 % PAVEL Comment: Interpretive Data Percent cell count reference ranges are not reported, since discordance with absolute values may lead to misinterpretation of CBC data. Current Interpretive Data was last revised on 2017. Testing performed by: [address] [address] Eosinophil pct 0.2 % PAVEL Comment: Interpretive Data Percent cell count reference ranges are not reported, since discordance with absolute values may lead to misinterpretation of CBC data. Current Interpretive Data was last revised on 2017. Testing performed by: [address] [address] Basophil pct 0.7 % [facility] Comment: Interpretive Data Percent cell count reference ranges are not reported, since discordance with absolute values may lead to misinterpretation of CBC data. Current Interpretive Data was last revised on 2017. Testing performed by: [address] [address] Blood 10/20/2024 3:52 AM CDT 10/20/2024 4:33 AM CDT us Honorio Mosqueda NP LAB BLOOD ORDERABLES Final Result Performing Organization Address [facility]/ZIP Co de Phone Number PAVEL [facility] [place] [address] * Heparin anti factor Xa activity (10/20/2024 3:52 AM CDT) [facility] Anti Factor Xa 0.42 IUnits/mL Comment: Interpretive [...] last revised on 2019. Testing performed by: [facility], [address] [place] [address]., [address] Blood 10/20/2024 3:52 AM CDT 10/20/2024 4:34 AM CDT us Matteo Julian MD LAB BLOOD ORDERABLES Cherise l Result Performing Organization Address City/[facility]/ZIP Co de Phone Number [place] [address] [facility] [place] [address] * (ABNORMAL) CBC with auto differential (10/20/2024 3:52 AM CDT) WBC 25.8(H) 3.8 - 9.9 K/cumm Comment:Testing performed by : [address], [address] Hgb 9.4(L) 13.0 - 17.5 g/dL PAVEL Comment:Testing performed by : [address] [address] Hct 29.0(L) 38.9 - 50.3 % PAVEL Comment:Testing performed by : [address], [address] Plt 429(H) 150 - 400 K/cumm PAVEL Comment:Testing performed by : [address], [address] MPV 9.4 9.1 - 12.3 fL PAVEL Comment:Testing performed by : [address], [address] RBC 3.15(L) 4.30 - 5.80 M/cumm PAVEL Comment:Testing performed by : [address], [address] MCV 92.1 81.3 - 96.4 fL PAVEL Comment:Testing performed by : [address], [address] MCH 29.8 27.1 - 33.3 pg CERALDO Comment:Testing performed by : [address], [address] MCHC 32.4 32.3 - 35.7 g/dL PAVEL Comment:Testing performed by : [address], [address] RDW CV 15.2(H) 11.1 - 14.9 % PAVEL Comment:Testing performed by : [address], [address] RDW SD 50.7(H) 35.7 - 48.1 fL PAVEL Comment:Testing performed by : [address], [address] NRBC abs 0.04(H) 0.00 - 0.01 K/cumm PAVEL Comment:Testing performed by : [address] [address] Blood 10/20/2024 3:52 AM CDT 10/20/2024 4:33 AM CDT Barbara Collins MD LAB BLO OD ORDERABLES Final Result Performing Organization Address [facility] de Phone Number [address] [place] [address] * (ABNORMAL) CRP (acute phase) (10/20/2024 3:52 AM CDT) Pathologist [facility] CRP 225.0(H) <=10.0 mg/L Comment:Testing performed by : [address] [address] Blood 10/20/2024 3:52 AM CDT 10/20/2024 4:31 AM CDT Rigoberto Croft MD LAB BLOOD ORDERABLES F inal Result Performing Organization Address [facility] de Phone Number [address] [address] * (ABNORMAL) Comprehensive metabolic panel (10/20/2024 3:52 AM CDT) Pathologist [facility] Sodium 139 135 - 145 mmol/L Comment:Testing performed by : [address] [address] Potassium, pl 4.0 3.3 - 4.9 mmol/L PAVEL Comment:Testing performed by : [address] [address] Chloride 98 97 - 110 mmol/L PAVEL Comment:Testing performed by : [address] [address] CO2 22 22 - 32 mmol/L PAVEL Comment:Testing performed by : [address] [address] Anion gap 19(H) 2 - 15 mmol/L PAVEL Comment:Testing performed by : [address] [address] BUN 105(H) 6 - 25 mg/dL PAVEL Comment:Testing performed by : [address] [address] Creatinine 6.35(H) 0.80 - 1.30 mg/dL PAVEL Comment:Testing performed by : [address] [address] Glucose 172 70 - 199 mg/dL [facility] Comment: Interpretive Data Fasting glucose >/= 126 [...] was last revised 2022. Testing performed by: [address] [address] Calcium 10.1 8.5 - 10.3 mg/dL [facility] Comment:Testing performed by : [address] [address] Bilirubin, total 0.2 0.1 - 1.2 mg/dL [facility] Comment:Testing performed by : [address] [address] Protein, pl 6.6 6.5 - 8.5 g/dL [facility] Comment:Testing performed by : [address] [address] Albumin 3.2(L) 3.5 - 5.0 g/dL PAVEL Comment:Testing performed by : [address] [address] Alk phos 132(H) 40 - 130 Units/L PAVEL Comment:Testing performed by : [address] [address] ALT 91(H) 7 - 55 Units/L PAVEL ROSADO Comment:Testing performed by : [facility], [address] [place] [address]., [address] AST 105(H) 10 - 50 Units/L PAVEL ROSADO Comment:Testing performed by : [facility], [address] [place] [address]., [address] Blood 10/20/2024 3:52 AM CDT 10/20/2024 4:31 AM CDT us Matteo Julian MD LAB BLOOD ORDERABLES Cherise l Result PAVEL [address] [facility] [place] [address] * Heparin anti factor Xa [...] last revised on 2019. Testing performed by: [address] [address] Blood 10/19/2024 7:33 PM CDT 10/19/2024 7:50 PM CDT Matteo Julian MD LAB BLOOD ORDERABLES Cherise l Result PAVEL [facility] [address] * Heparin anti factor Xa activity (10/19/2024 [...] last revised on 2019. Testing performed by: [facility], [address] [place] [address]., [address] Blood 10/19/2024 12:5 0 PM CDT 10/19/2024 1:08 PM CDT Narrative [facility] - 10/19/2024 1:55 PM CDT Baseline prior to heparin initiation Matteo Julian MD LAB BLOOD ORDERABLES Cherise l Result PAVEL [address] [facility] [employer] [place], [place] [id number] * (ABNORMAL) Protime-INR (10/19/2024 12:50 PM CDT) Pathologist [facility] PT 15.6(H) 12.0 - 14.6 sec Comment: Ref Range High Testing performed by: [address] [address] INR 1.3(H) 0.9 - 1.2 YUNIORALDO Comment: Ref Range High Interpretive data Oral anticoagulant therapeutic ranges: Venous thromboembolism prophylaxis or treatment: 2.0-3.0 CARDIOLOGY Standard range: 2.0-3.0 High-intensity range: 2.5-3.5 Refer to indication-specific guidelines for appropriate target ranges for prosthetic heart valve replacement. Current interpretive data was last revised on 2019. Testing performed by: [address] [address] Blood 10/19/2024 12:5 0 PM CDT 10/19/2024 1:07 PM CDT Narrative PAVEL - 10/19/2024 1:27 PM CDT Baseline prior to heparin initiation Matteo Julian MD LAB BLOOD ORDERABLES Cherise l Result [facility] [address] [facility] [place] [address] * ECG 12 lead (10/19/2024 12:28 PM CDT) Pathologist [facility] Ventricular Rate EKG/Min 122 BPM [facility] Atrial Rate 133 BPM [facility] QRS-Interval (MSEC) 156 ms [facility] QT-Interval (MSEC) 372 ms [facility] QTc 530 ms [facility] R [place] 270 degrees [facility] T [place] 75 degrees [facility] Diagnosis Atrial fibrillation with rapid ventricular response Left axis deviation Non-specific intra-ventricul ar conduction block Abnormal ECG Confirmed by LANDEN SEARS M.D. ([id number]) on 10/19/2024 4:58:38 PM [facility] 10/19/2024 12:2 8 PM CDT 10/19/2024 4:58 PM CDT us Matteo Julian MD ECG ORDERABLES Final Res ult [facility] * XR Chest 1 View (10/19/2024 [...] Jonathan Oneill M.D. KR: KR Report ID: [id number] Reading Location: [place] [address] Procedure Note Jonathan Oneill MD - 10/19/2024 [...] Jonathan Oneill M.D. KR: KEL Report ID: [id number] Reading Location: [id number] us Rigoberto Croft MD IMG XR PROCEDURES [...] was last reviewed 2021. Testing performed by: [facility], [address] [place] [address]., [address] Blood 10/19/2024 4:05 AM CDT 10/19/2024 4:39 AM CDT us Matteo Julian MD LAB BLOOD ORDERABLES Cherise l Result PAVEL [address] [facility] [place] [address] * (ABNORMAL) Differential, auto (10/19/2024 4:05 AM CDT) Neutrophil abs 18.8(H) 1.5 - 6.5 K/cumm Comment:Testing performed by : [facility], [address] [place] [address], [place]., [address] Imm gran abs 1.0(H) 0.0 - 0.1 K/cumm [facility] Comment:Testing performed by : [address], [place]., [address] Lymphocyte abs 0.9 0.8 - 3.3 K/cumm [facility] Comment:Testing performed by : [address], [place]., [address] Monocyte abs 0.8 0.2 - 0.8 K/cumm [facility] Comment:Testing performed by : [address], [place]., [address] Eosinophil abs 0.0 0.0 - 0.5 K/cumm [facility] Comment:Testing performed by : [address], [place]., [address] Basophil abs 0.1 0.0 - 0.1 K/cumm [facility] Comment:Testing performed by : [address] [address] Neutrophil pct 87.5 % [facility] Comment: Interpretive Data Percent cell count reference ranges are not reported, since discordance with absolute values may lead to misinterpretation of CBC data. Current Interpretive Data was last revised on 2017. Testing performed by: [address] [address] Imm gran pct 4.5 % [facility] Comment: Interpretive Data Percent cell count reference ranges are not reported, since discordance with absolute values may lead to misinterpretation of CBC data. Current Interpretive Data was last revised on 2017. Testing performed by: [address] [address] Lymphocyte pct 4.0 % C[facility] Comment: Interpretive Data Percent cell count reference ranges are not reported, since discordance with absolute values may lead to misinterpretation of CBC data. Current Interpretive Data was last revised on 2017. Testing performed by: [address], [place]., [address] Monocyte pct 3.6 % [facility] Comment: Interpretive Data Percent cell count reference ranges are not reported, since discordance with absolute values may lead to misinterpretation of CBC data. Current Interpretive Data was last revised on 2017. Testing performed by: [address] [address] Eosinophil pct 0.1 % [facility] Comment: Interpretive Data Percent cell count reference ranges are not reported, since discordance with absolute values may lead to misinterpretation of CBC data. Current Interpretive Data was last revised on 2017. Testing performed by: [address] [address] Basophil pct 0.3 % [facility] Comment: Interpretive Data Percent cell count reference ranges are not reported, since discordance with absolute values may lead to misinterpretation of CBC data. Current Interpretive Data was last revised on 2017. Testing performed by: [address] [address] Blood 10/19/2024 4:05 AM CDT 10/19/2024 4:41 AM CDT us Honorio Mosqueda NP LAB BLOOD ORDERABLES Final Result [address] [place] [address] * (ABNORMAL) Thyroid Function [place] (10/19/2024 4:05 AM CDT) TSH 0.12(L) 0.30 - 4.20 mcIUnit/mL Comment:Testing performed by : [address] [address] Blood 10/19/2024 4:05 AM CDT 10/19/2024 4:39 AM CDT us Matteo Julian MD LAB BLOOD ORDERABLES Cherise l Result [address] [place] [address] * (ABNORMAL) CBC with auto differential (10/19/2024 4:05 AM CDT) [facility] Signature WBC 21.5(H) 3.8 - 9.9 K/cumm Comment:Testing performed by : [address] [address] Hgb 9.7(L) 13.0 - 17.5 g/dL PAVEL Comment:Testing performed by : [address], [address] Hct 29.8(L) 38.9 - 50.3 % PAVEL Comment:Testing performed by : [address], [address] Plt 419(H) 150 - 400 K/cumm PAVEL Comment:Testing performed by : [address], [address] MPV 9.6 9.1 - 12.3 fL PAVEL Comment:Testing performed by : [address], [address] RBC 3.25(L) 4.30 - 5.80 M/cumm PAVEL Comment:Testing performed by : [address], [address] MCV 91.7 81.3 - 96.4 fL PAVEL Comment:Testing performed by : [address], [address] MCH 29.8 27.1 - 33.3 pg PAVEL Comment:Testing performed by : [address], [address] MCHC 32.6 32.3 - 35.7 g/dL PAVEL Comment:Testing performed by : [address], [address] RDW CV 15.2(H) 11.1 - 14.9 % PAVEL Comment:Testing performed by : [address], [address] RDW SD 51.7(H) 35.7 - 48.1 fL PAVEL Comment:Testing performed by : [address], [address] NRBC abs 0.00 0.00 - 0.01 K/cumm [facility] Comment:Testing performed by : [facility], [address] [place] [address]., [address] Blood 10/19/2024 4:05 AM CDT 10/19/2024 4:41 AM CDT Barbara Collins MD LAB BLO OD ORDERABLES Final Result Performing Organization Address [facility] Co de Phone Number [address] [place] [address] * (ABNORMAL) CRP (acute phase) (10/19/2024 4:05 AM CDT) CRP 476.0(H) <=10.0 mg/L Comment:Testing performed by : [facility], [address] [place] [address]., [address] Blood 10/19/2024 4:05 AM CDT 10/19/2024 4:39 AM CDT Rigoberto Croft MD LAB BLOOD ORDERABLES F inal Result Performing Organization Address [facility] Co de Phone Number [address] [place] [address] * (ABNORMAL) T3, free (10/19/2024 4:05 AM CDT) Free T3 1.5(L) 2.0 - 4.4 pg/mL Blood 10/19/2024 4:05 AM CDT 10/19/2024 4:42 PM CDT Narrative [facility] - 10/19/2024 5:11 PM CDT This test was reflexed from a T4 result. us Matteo Julian MD LAB BLOOD ORDERABLES Cherise l Result Performing Organization Address City/[facility]/ZIP Co de Phone Number [address] [place] [address] * T4, free (10/19/2024 4:05 AM CDT) Pathologist [facility] Free T4 1.40 0.90 - 1.70 ng/dL Comment:Testing performed by : [address] [address] Blood 10/19/2024 4:05 AM CDT 10/19/2024 4:39 AM CDT Narrative PAVEL - 10/19/2024 2:34 PM CDT This test was reflexed from a TSH result. us Matteo Julian MD LAB BLOOD ORDERABLES Cherise still Result PAVEL [address] [facility] [place] [address] * (ABNORMAL) Comprehensive metabolic panel (10/19/2024 4:05 AM CDT) [facility] Sodium 139 135 - 145 mmol/L Comment:Testing performed by : [address] [address] Potassium, pl 4.5 3.3 - 4.9 mmol/L PAVEL Comment: Hemolyzed; Potassium value may be falsely elevated by as much as 1.0 mmol/L. Suggest redraw and reanalysis. Testing performed by: [address] [address] Chloride 100 97 - 110 mmol/L PAVEL Comment:Testing performed by : [address] [address] CO2 22 22 - 32 mmol/L PAVEL Comment:Testing performed by : [address] [address] Anion gap 17(H) 2 - 15 mmol/L PAVEL Comment:Testing performed by : [address] [address] BUN 89(H) 6 - 25 mg/dL PAVEL Comment:Testing performed by : [address] [address] Creatinine 5.77(H) 0.80 - 1.30 mg/dL PAVEL Comment:Testing performed by : [address] [address] Glucose 196 70 - 199 mg/dL PAVEL [...] was last revised 2022. Testing performed by: [address] [address] Calcium 10.4(H) 8.5 - 10.3 mg/dL PAVEL Comment:Testing performed by : [address] [address] Bilirubin, total 0.2 0.1 - 1.2 mg/dL [facility] Comment:Testing performed by : [address] [address] Protein, pl 7.1 6.5 - 8.5 g/dL PAVEL Comment:Testing performed by : [address] [address] Albumin 3.2(L) 3.5 - 5.0 g/dL [facility] Comment:Testing performed by : [address] [address] Alk phos 102 40 - 130 Units/L PAVEL Comment:Testing performed by : [address] [address] ALT 31 7 - 55 Units/L PAVEL Comment:Testing performed by : [address] [address] AST 44 10 - 50 Units/L PAVEL Comment: Hemolyzed; result may be falsely elevated Testing performed by: [address] [address] Blood 10/19/2024 4:05 AM CDT 10/19/2024 4:39 AM CDT us Matteo Julian MD LAB BLOOD ORDERABLES Cherise cheko Result PAVEL [address] [facility] [place] [address] * TRANSTHORACIC ECHO (TTE) COMPLETE W DOPPLER/CF W CONTRAST (10/18/2024 2:30 PM CDT) LV EF 30-35 % CONS SCIMAGE Anatomical Region Laterality Modality Ultrasound 10/18/2024 1:40 PM CDT Narrative 10/18/2024 6:15 PM CDT Transthoracic Echocardiographic Report Patient Name: LAMIN BETTS J : 1950 (74y 8m) Gender: M Study Date: 10/18/2024 01:40:19 PM Ht(Inch): 75 Wt(Lb): 267.99 BSA: 2.54 General Merchandise Manager: Lily Alford RDCS Location: [id number] Order Provider: HONORIO MOSQUEDA Heart Rate: 120 BMI: 33.49 BP: 121 / 94 Ref Provider: HONORIO MOSQUEDA PROCEDURES: Echocardiographic Report: ([id number]) Transthoracic complete echo with contrast, 2D, spectral [...] AI Peak PG 70.00 mmHg AI Decel [place] 4.33 m/s2 AI PHT 284.00 ms MV [...] PM Ht(Inch): 75 Wt(Lb): 267.99 BSA: 2.54 General Merchandise Manager: Lily Alford RDCS Location: [place] [address] Order Provider:HONORIO MOSQUEDA Heart Rate: 120 BMI: 33.49 BP: 121 / 94 Ref Provider: HONORIO MOSQUEDA PROCEDURES: Echocardiographic Report: ([id number]) Transthoracic complete echo withcontrast, 2D, spectral and [...] AI Peak PG 70.00 mmHg AI Decel [place] 4.33 m/s2 AI PHT 284.00 ms MV [...] ECG 12 lead (10/18/2024 5:59 AM CDT) [facility] Ventricular Rate EKG/Min 93 BPM [facility] Atrial Rate 93 BPM [facility] [place]-Interval (MSEC) 208 ms [facility] QRS-Interval (MSEC) 162 ms [facility] QT-Interval (MSEC) 416 ms [facility] QTc 517 ms [facility] R [place] 257 degrees [facility] T [place] 92 degrees [facility] Diagnosis Sinus rhythm with occasional Premature ventricular complexes and Premature atrial complexes Right superior axis deviation Left bundle branch block Incomplete right bundle branch block Abnormal ECG When compared with ECG of 17-OCT-2024 13:15, Premature ventricular complexes are now Present Confirmed by SULTAN DREW M.D. ([id number]) on 10/18/2024 3:53:08 PM [facility] 10/18/2024 5:59 AM CDT 10/18/2024 3:53 PM CDT us Matteo Julian MD ECG ORDERABLES Final Res ult [facility] [place] * (ABNORMAL) Differential, auto (10/18/2024 4:42 AM CDT) Neutrophil abs 12.6(H) 1.5 - 6.5 K/cumm Comment:Testing performed by : [address] [address] Imm gran abs 0.1 0.0 - 0.1 K/cumm PAVEL Comment:Testing performed by : [address] [address] Lymphocyte abs 0.4(L) 0.8 - 3.3 K/cumm PAVEL Comment:Testing performed by : [address] [address] Monocyte abs 0.5 0.2 - 0.8 K/cumm PAVEL Comment:Testing performed by : [address] [address] Eosinophil abs 0.0 0.0 - 0.5 K/cumm PAVEL Comment:Testing performed by : [address] [address] Basophil abs 0.0 0.0 - 0.1 K/cumm PAVEL Comment:Testing performed by : [address] [address] Neutrophil pct 92.4 % [facility] Comment: Interpretive Data Percent cell count reference ranges are not reported, since discordance with absolute values may lead to misinterpretation of CBC data. Current Interpretive Data was last revised on 2017. Testing performed by: [address] [address] Imm gran pct 0.8 % [facility] Comment: Interpretive Data Percent cell count reference ranges are not reported, since discordance with absolute values may lead to misinterpretation of CBC data. Current Interpretive Data was last revised on 2017. Testing performed by: [address] [address] Lymphocyte pct 3.2 % [facility] Comment: Interpretive Data Percent cell count reference ranges are not reported, since discordance with absolute values may lead to misinterpretation of CBC data. Current Interpretive Data was last revised on 2017. Testing performed by: [address] [address] Monocyte pct 3.5 % [facility] Comment: Interpretive Data Percent cell count reference ranges are not reported, since discordance with absolute values may lead to misinterpretation of CBC data. Current Interpretive Data was last revised on 2017. Testing performed by: [address] [address] Eosinophil pct 0.0 % [facility] Comment: Interpretive Data Percent cell count reference ranges are not reported, since discordance with absolute values may lead to misinterpretation of CBC data. Current Interpretive Data was last revised on 2017. Testing performed by: [address] [address] Basophil pct 0.1 % [facility] Comment: Interpretive Data Percent cell count reference ranges are not reported, since discordance with absolute values may lead to misinterpretation of CBC data. Current Interpretive Data was last revised on 2017. Testing performed by: [address] [address] Blood 10/18/2024 4:42 AM CDT 10/18/2024 5:22 AM CDT us Honorio Mosqueda NP LAB BLOOD ORDERABLES Final Result PAVEL [address] [facility] [place] [address] * (ABNORMAL) Iron profile w/ IBC (10/18/2024 4:42 AM CDT) [facility] Iron 16(L) 50 - 150 mcg/dL Comment:Testing performed by : [address] [address] TIBC 177(L) 250 - 400 mcg/dL PAVEL ROSADO Comment:Testing performed by : [address] [address] Transferrin saturation 9(L) 20 - 50 % PAVEL ROSADO Comment:Testing performed by : [address] [address] Blood 10/18/2024 4:42 AM CDT 10/18/2024 5:18 AM CDT Honorio Mosqueda BLOOD OR BLOOD BANK TECHNICIAN LAB BLOOD ORDERABLES Final Result Performing Organization Address City/State/[facility] Co de Phone Number PAVEL [address] [place] [address] * (ABNORMAL) CBC with auto differential (10/18/2024 4:42 AM CDT) [facility] WBC 13.6(H) 3.8 - 9.9 K/cumm Comment:Testing performed by : [address] [address] Hgb 9.5(L) 13.0 - 17.5 g/dL PAVEL ROSADO Comment:Testing performed by : [address] [address] Hct 30.5(L) 38.9 - 50.3 % PAVEL ROSADO Comment:Testing performed by : [address] [address] Plt 342 150 - 400 K/cumm PAVEL ROSADO Comment:Testing performed by : [address] [address] MPV 10.3 9.1 - 12.3 fL PAVEL ROSADO Comment:Testing performed by : [address] [address] RBC 3.27(L) 4.30 - 5.80 M/cumm PAVEL Comment:Testing performed by : [address] [address] MCV 93.3 81.3 - 96.4 fL PAVEL Comment:Testing performed by : [address] [address] MCH 29.1 27.1 - 33.3 pg PAVEL Comment:Testing performed by : [address] [address] MCHC 31.1(L) 32.3 - 35.7 g/dL PAVEL Comment:Testing performed by : [address], [address] RDW CV 15.0(H) 11.1 - 14.9 % PAVEL Comment:Testing performed by : [address], [address] RDW SD 51.3(H) 35.7 - 48.1 fL PAVEL Comment:Testing performed by : [address] [address] NRBC abs 0.00 0.00 - 0.01 K/cumm PAVEL Comment:Testing performed by : [address] [address] Blood 10/18/2024 4:42 AM CDT 10/18/2024 5:22 AM CDT Barbara Collins MD LAB BLO OD ORDERABLES Final Result [facility] [address] [facility] [place] [address] * Phosphorus (10/18/2024 4:42 AM CDT) Phosphorus, pl 3.1 2.3 - 4.5 mg/dL Comment:Testing performed by : [address] [address] Blood 10/18/2024 4:42 AM CDT 10/18/2024 5:18 AM CDT Honorio Wilson Mosqueda BLOOD OR BLOOD BANK TECHNICIAN LAB BLOOD ORDERABLES Final Result Performing Organization Address [facility] de Phone Number PAVEL [address] [address] * Magnesium (10/18/2024 4:42 AM CDT) [facility] Magnesium 2.0 1.4 - 2.5 mg/dL Comment:Testing performed by : [address] [address] Blood 10/18/2024 4:42 AM CDT 10/18/2024 5:18 AM CDT Honorio Wilson Mosqueda BLOOD OR BLOOD BANK TECHNICIAN LAB BLOOD ORDERABLES Final Result Performing Organization Address [facility] de Phone Number YUNIOR[address] [address] * Ferritin (10/18/2024 4:42 AM CDT) [facility] Ferritin 353 30 - 400 ng/mL Comment:Testing performed by : [facility], [address] [place] [address]., [address] Blood 10/18/2024 4:42 AM CDT 10/18/2024 5:18 AM CDT Honorio Mosqueda BLOOD OR BLOOD BANK TECHNICIAN LAB BLOOD ORDERABLES Final Result Performing Organization Address [facility] de Phone Number YUNIOR[address] [address] * (ABNORMAL) Pneumonia PCR with aerobic culture and Gram stain Sputum (10/18/2024 12:24 AM CDT) [facility] Direct Specimen Exam Stain: Abundant squamous epithelial cells seen indicating excessive oropharyngeal contamination. Culture will not be processed further. Please submit another specimen. Smear results called to and read back by: Jackie Leos MLT ([phone]) on 10/18/2024 05:15:52 by: Willian Christine Jr, MT Results phoned to and read back by: [id number] on 10/18/2024 05:25:35 by: [id number] Comment:Testing performed by : [facility], [address] [place] [address]., [address] Direct Specimen Exam Molecular Analysis: Abundant squamous epithelial cells observed on Gram stain. Specimen will not be processed for rapid molecular analysis. PAVEL Comment:Testing performed by : [facility], [address] [place] [address], [address] Report Final Report: This is the final report. (.) PAVEL Comment:Testing performed by : [facility], [address] [place] [address], [address] Sputum 10/18/2024 12:2 4 AM CDT 10/18/2024 3:[address] [facility] PAVEL - 10/18/2024 7:45 AM CDT When rapid molecular testing results are reported, testing completed using the [employer] Pneumonia Panel. This molecular assay detects: Acinetobacter [...] performance characteristics have been confirmed by the [facility] Laboratory. The performance of the [employer] Pneumonia Panel has not been established for monitoring treatment of infection and bacterial nucleic acids may persist independent of organism viability. Honorio Mosqueda LAB MICROBIOLOGY - ENERAL ORDERABLES Final Result Performing Organization Address [facility] de Phone Number [address] [address] * Strep pneumoniae antigen, urine Urine (10/18/2024 [...] CDT 10/18/2024 2:12 AM CDT Honorio Mosqueda [facility] MICROBIOLOGY - ENERAL ORDERABLES Final Result Performing Organization Address [facility] de Phone Number [address] [address] * Legionella antigen Urine (10/18/2024 12:24 AM CDT) Legionella Ag Negative Negative Comment: Interpretive Data This test detects only Legionella pneumophila serogroup 1 antigen. Testing performed by [facility] Microbiology Laboratory ([phone]). Current interpretive data was last revised on 2019. Testing performed by: [facility], [address] [facility] [place] [address] Urine 10/18/2024 12:2 4 AM CDT 10/18/2024 3:58 AM CDT us Honorio Mosqueda BLOOD OR BLOOD BANK TECHNICIAN LAB MICROBIOLOGY - G ENERAL ORDERABLES Final Result Performing Organization Address [facility] Co de Phone Number PAVEL [facility] [place] [address] * (ABNORMAL) Troponin T high-sensitivity 6-hour (10/17/2024 9:59 PM CDT) Trop T hs 118(H) <=22 ng/L Comment: Interpretive Data For further hscTnT resources including the diagnostic algorithm and an aid in interpretation, copy and paste this link: https://nrl.testcatalog.org/show/hsTrop Current Interpretive Data last revised 2020. Testing performed by: [address] [address] Trop T hs delta See Comment ng/L PAVEL Comment: Inappropriate collection time to report a delta. Testing performed by: [address] [address] Trop T hs pct delta See Comment % PAVEL Comment: Inappropriate collection time to report a delta. Testing performed by: [address] [address] Trop T hs interp See Comment PAVEL Comment: Inappropriate collection time to report a delta. Testing performed by: [address] [address] Blood 10/17/2024 9:59 PM CDT 10/17/2024 10:04 PM CDT us Eugenio Myrick DO LAB BLOOD ORDERABLES Final Result Performing Organization Address City/[facility]/ZIP Co de Phone Number PAVEL [facility] [place] [address] * (ABNORMAL) eGFR (10/17/2024 9:59 PM CDT) Pathologist [facility] eGFR 11(L) >=60 mL/min/1. 73 m2 Comment: [...] was last reviewed 2021. Testing performed by: [facility], [address] [place] [address]., [address] Blood 10/17/2024 9:59 PM CDT 10/17/2024 10:04 PM CDT Honorio Mosqueda NP LAB BLOOD ORDERABLES Final Result Performing Organization Address City/[facility]/ZIP Co de Phone Number [address] [place] [address] * (ABNORMAL) Calcium, ionized (10/17/2024 9:59 PM CDT) [facility] Calcium, Ionized 5.17(H) 4.50 - 5.10 mg/dL Blood 10/17/2024 9:59 PM CDT 10/18/2024 12:34 AM CDT Honorio Mosqueda NP LAB BLOOD ORDERABLES Final Result YUNIOR[address] [address] * Vitamin D 25 hydroxy (10/17/2024 9:59 PM CDT) [facility] Vitamin D 25-OH 37.0 30.0 - 80.0 ng/mL Blood 10/17/2024 9:59 PM CDT 10/18/2024 12:34 AM CDT Honorio Mosqueda BLOOD OR BLOOD BANK TECHNICIAN LAB BLOOD ORDERABLES Final Result Performing Organization Address City/[facility] Co de Phone Number [address] [place] [address] * Phosphorus (10/17/2024 9:59 PM CDT) [facility] Phosphorus, pl 3.3 2.3 - 4.5 mg/dL Comment:Testing performed by : [address] [address] Blood 10/17/2024 9:59 PM CDT 10/17/2024 10:04 PM CDT Honorio Mosqueda BLOOD OR BLOOD BANK TECHNICIAN LAB BLOOD ORDERABLES Final Result Performing Organization Address [facility] de Phone Number [address] [address] * (ABNORMAL) PTH (10/17/2024 9:59 PM CDT) [facility] PTH 130(H) 15 - 65 pg/mL Comment:Testing performed by : [address] [address] Blood 10/17/2024 9:59 PM CDT 10/17/2024 10:04 PM CDT Saurabhgino Katieanna Mosqueda BLOOD OR BLOOD BANK TECHNICIAN LAB BLOOD ORDERABLES Final Result Performing Organization Address City/[facility] Co de Phone Number [address] [address] * (ABNORMAL) Comprehensive metabolic panel (10/17/2024 9:59 PM CDT) [facility] Sodium 136 135 - 145 mmol/L Comment:Testing performed by : [facility], [address] [place] [address], [place]., [address] Potassium, pl 4.3 3.3 - 4.9 mmol/L PAVEL Comment:Testing performed by : [address], [place]., [address] Chloride 99 97 - 110 mmol/L PAVEL Comment:Testing performed by : [address], [place]., [address] CO2 22 22 - 32 mmol/L [facility] Comment:Testing performed by : [address], [place]., [address] Anion gap 15 2 - 15 mmol/L [facility] Comment:Testing performed by : [address], [place]., [address] BUN 65(H) 6 - 25 mg/dL [facility] Comment:Testing performed by : [address], [place]., [address] Creatinine 5.22(H) 0.80 - 1.30 mg/dL PAVEL Comment:Testing performed by : [address], [place]., [address] Glucose 244(H) 70 - 199 mg/dL [facility] Comment: Delta - Results Reviewed Interpretive Data [...] was last revised 2022. Testing performed by: [address] [address] Calcium 10.4(H) 8.5 - 10.3 mg/dL [facility] Comment:Testing performed by : [address], [place]., [address] Bilirubin, total 0.4 0.1 - 1.2 mg/dL PAVEL Comment:Testing performed by : [address] [address] Protein, pl 7.0 6.5 - 8.5 g/dL PAVEL Comment:Testing performed by : [address] [address] Albumin 3.4(L) 3.5 - 5.0 g/dL PAEVL Comment:Testing performed by : [address], [place]., [address] Alk phos 88 40 - 130 Units/L PAVEL Comment:Testing performed by : [address], [place]., [address] ALT 21 7 - 55 Units/L PAVEL Comment:Testing performed by : [address] [address] AST 26 10 - 50 Units/L PAVEL Comment:Testing performed by : [address] [address] Blood 10/17/2024 9:59 PM CDT 10/17/2024 10:04 PM CDT Honorio Mosqueda NP LAB BLOOD ORDERABLES Final Result PAVEL [facility] [place] [address] * MRSA Only (Staphylococcus aureus) PCR Nasal (10/17/2024 8:16 PM CDT) PCR Scrn, Methicillin resistant Staphylococcus aureus (MRSA) Not Detected Not Detected Comment: Interpretive Data Testing performed using Nucleic Acid Amplification with the [employer] Xpert MRSA NxG Assay. This assay detects target DNA from mecA, mecC and the SCCmec insertion site of Staphylococcus aureus using Real-Time PCR and has been cleared by the FDA. Performance characteristics have been verified by the [facility]. Current Interpretive Data was last revised on 2023 Testing performed by: [address] [address] Nasal 10/17/2024 8:16 PM CDT 10/17/2024 8:21 PM CDT Honorio Mosqueda BLOOD OR BLOOD BANK TECHNICIAN LAB MICROBIOLOGY - G ENERAL ORDERABLES Final Result Performing Organization Address City/[facility] Co de Phone Number PAVEL [address] [facility] [place] [address] * (ABNORMAL) Troponin T high-sensitivity 4-hour (10/17/2024 5:47 PM CDT) Trop T hs 128(H) <=22 ng/L Comment: Interpretive Data For further hscTnT resources including the diagnostic algorithm and an aid in interpretation, copy and paste this link: https://nrl.testcatalog.org/show/hsTrop Current Interpretive Data last revised 2020. Testing performed by: [address] [address] Trop T hs pct delta -10 % PAVEL Comment:Testing performed by : [address] [address] Trop T hs interp Equivocal PAVEL Comment:Testing performed by : [address] [address] Blood 10/17/2024 5:47 PM CDT 10/17/2024 5:51 PM CDT Eugenio Myrick DO LAB BLOOD ORDERABLES Final Result Performing Organization Address [facility] Co de Phone Number PAVEL [address] [facility] [place] [address] * Sepsis Lactate w/ Reflex (10/17/2024 5:47 PM CDT) Pathologist [facility] Sepsis Lactate 1.2 0.7 - 2.0 mmol/L Comment:Testing performed by : [address] [address] Blood 10/17/2024 5:47 PM CDT 10/17/2024 5:51 PM CDT Jonathan Lentz DO LAB BLOOD ORDERABLES Final Result PAVEL ROSADO [address] [facility] [place] [address] * (ABNORMAL) POC Blood Gas and Chemistries, Venous - (10/17/2024 4:27 PM CDT) pH,ericka POC 7.47(H) 7.32 - 7.43 Comment:Testing performed by : [address] [address] pCO2, ericka POC 30(L) 40 - 50 mmHg PAVEL Comment:Testing performed by : [address] [address] pO2,ericka POC 77 mmHg PAVEL Comment: Interpretive Data No reference range established. Current interpretive data was last revised 2020. Testing performed by: [address] [address] HCO3, ericka (Calc) POC 22 20 - 30 mmol/L PAVEL Comment:Testing performed by : [address] [address] Base excess, ericka POC -1 mmol/L PAVEL Comment: Interpretive Data No reference range established. Current interpretive data was last revised 2020. Testing performed by: [address] [address] Blood 10/17/2024 4:27 PM CDT 10/17/2024 4:27 PM CDT Jonathan Lentz DO LAB POCT ORDERABLES - DEVIC E Final Result Performing Organization Address City/[facility]/ZIP Co de Phone Number PAVEL ROSADO [address] [facility] [place] [address] * NM Pulmonary Perfusion Imaging (10/17/2024 3:49 [...] Oliverio Steinberg M.D. LB: JC Report ID: [id number] Reading Location: [id number] Procedure Note Oliverio Steinberg MD - 10/17/2024 [...] Oliverio Steinberg M.D. LB: JC Report ID: [id number] Reading Location: [id number] Jonathan Lentz DO IMG NM PROCEDURES Final Res ult * Blood culture Blood (10/17/2024 3:10 PM CDT) Report Final Report: No growth Comment:Testing performed by : [facility], [address] [place]., [address] Blood 10/17/2024 3:10 PM CDT 10/17/2024 7:29 [...] performance characteristics have been verified by the [facility] Microbiology Laboratory. For questions about this culture, contact the Microbiology Laboratory at [phone]. Interpretive data was last revised on 24. Jonathan Lentz DO LAB MICROBIOLOGY - GENERAL ORDERABLES Final Result PAVEL ROSADO [address] [facility] [place] [address] * Blood culture Blood (10/17/2024 3:10 PM CDT) Report Final Report: No growth Comment:Testing performed by : [facility], [address] [facility] [place]., [address] Blood 10/17/2024 3:10 PM CDT 10/17/2024 7:30 [...] performance characteristics have been verified by the [facility] Microbiology Laboratory. For questions about this culture, contact the Microbiology Laboratory at [phone]. Interpretive data was last revised on 24. Jonathan Lentz DO LAB MICROBIOLOGY - GENERAL ORDERABLES Final Result PAVEL [address] [facility] [place] [address] * (ABNORMAL) Troponin T high-sensitivity 2-hour (10/17/2024 2:55 PM CDT) Trop T hs 133(H) <=22 ng/L Comment: Interpretive Data For further hscTnT resources including the diagnostic algorithm and an aid in interpretation, copy and paste this link: https://nrl.testcatalog.org/show/hsTrop Current Interpretive Data last revised 2020. Testing performed by: [facility], [address] [place] [address]., [address] Trop T hs pct delta -6 % PAVEL ROSADO Comment:Testing performed by : [address] [address] Trop T hs interp Equivocal PAVEL Comment:Testing performed by : [address] [address] Blood 10/17/2024 2:55 PM CDT 10/17/2024 2:59 PM CDT Eugenio Myrick DO LAB BLOOD ORDERABLES Final Result [facility] [address] [facility] [place] [address] * Influenza A/B, RSV, and COVID-19 PCR Nasopharyngeal (10/17/2024 2:55 PM CDT) COVID-19 RNA Negative Negative Comment:Testing performed by : [address] [address] Influenza A RNA Negative Negative PAVEL Comment:Testing performed by : [address] [address] Influenza B RNA Negative Negative PAVEL Comment:Testing performed by : [address] [address] RSV RNA Negative Negative PAVEL Comment: Interpretive data: Testing performed by [facility]. This test is performed using the [employer] Xpert Xpress CoV-2/Flu/RSV plus assay. This is a multiplex, real-time reverse transcriptase PCR assay intended for the qualitative detection of nucleic acid from SARS-CoV-2, influenza A, influenza B, and respiratory syncytial virus. This assay has been cleared by the [place] Food and Drug administration. The performance characteristics have been verified by the [facility]. Results must be considered in the clinical context, and a negative result does not rule out infection. Interpretive Data last revised 2023 Testing performed by: [address] [address] Nasopharyngeal 10/17/2024 2: 55 PM CDT 10/17/2024 2:58 PM CDT Narrative [facility] - 10/17/2024 3:38 PM CDT Is the Patient experiencing symptoms consistent with COVID?->Yes Li SALCIDO LAB MICROBIOLOGY - GENERAL [place]IC[place] Final Result Performing Organization Address [facility] Co de Phone Number [address] [address] * (ABNORMAL) Sepsis Lactate w/ Reflex (10/17/2024 2:55 PM CDT) Pathologist [facility] Sepsis Lactate 2.1(H) 0.7 - 2.0 mmol/L Comment:Testing performed by : [facility], [address] [place] [address]., [address] Blood 10/17/2024 2:55 PM CDT 10/17/2024 2:58 PM CDT Jonathan Lentz DO LAB BLOOD ORDERABLES Final Result Performing Organization Address [facility] Co de Phone Number [address] [address] * (ABNORMAL) Pro B-type natriuretic peptide (10/17/2024 2:55 PM CDT) [facility] NT-proBNP 15,819(H) <=300 pg/mL Comment: Interpretive Comments: [...] Last Revised Date: 2018. Testing performed by: [facility] [facility] [address] [place] [address], [place]., [address] Blood 10/17/2024 2:55 PM CDT 10/17/2024 2:59 PM CDT Jonathan Lentz DO LAB BLOOD ORDERABLES Final Result [facility] [address] [facility] [place] [address] * XR Chest 1 Vw [...] Virginie Conrad D.O. PS: PS Report ID: [id number] Reading Location: [place] [address] Procedure Note Virginie Conrad DO - 10/17/2024 [...] Virginie Conrad D.O. PS: PS Report ID: [id number] Reading Location: [place] [address] Jonathan Lentz DO IMG XR PROCEDURES Final Res ult * ECG 12 lead (10/17/2024 1:15 PM CDT) Ventricular Rate EKG/Min 101 BPM [facility] Atrial Rate 101 BPM [facility] [place]-Interval (MSEC) 192 ms [facility] QRS-Interval (MSEC) 154 ms [facility] QT-Interval (MSEC) 390 ms [facility] QTc 505 ms [facility] P [place] 85 degrees [facility] R [place] 264 degrees [facility] T [place] 59 degrees [facility] Diagnosis Sinus tachycardia with Premature supraventricular complexes Right bundle branch block Abnormal ECG When compared with ECG of 12-JAN-2004 11:38, Premature supraventricular complexes are now Present Right bundle branch block is now Present Confirmed by ASHLEY WYNNE M.D. ([id number]) on 10/18/2024 9:51:49 PM [facility] 10/17/2024 1:15 PM CDT 10/18/2024 9:51 PM CDT Jonathan Lentz DO ECG ORDERABLES Final Resul t Performing Organization Address City/[facility]/ZIP Co de Phone Number [facility] * (ABNORMAL) Troponin T high-sensitivity series (baseline, 2hr, 4hr, 6hr) (10/17/2024 1:12 PM CDT) Pathologist [facility] Trop T hs 142(H) <=22 ng/L Comment: Interpretive Data For further hscTnT resources including the diagnostic algorithm and an aid in interpretation, copy and paste this link: https://nrl.testcatalog.org/show/[email or web address] Current Interpretive Data last revised 2020. Testing performed by: [facility], [address] [place] [address]., [id number] Blood 10/17/2024 1:12 PM CDT 10/17/2024 1:40 PM CDT Jonathan Lentz DO LAB BLOOD ORDERABLES Final Result [facility] [address] [facility] [place] [address] * (ABNORMAL) eGFR (10/17/2024 1:12 PM CDT) Pathologist [facility] eGFR 12(L) >=60 mL/min/1. 73 m2 Comment: [...] was last reviewed 2021. Testing performed by: [address] [address] Blood 10/17/2024 1:12 PM CDT 10/17/2024 1:40 PM CDT Jonathan Lentz DO LAB BLOOD ORDERABLES Final Result [facility] [address] [place] [address] * (ABNORMAL) Differential, auto (10/17/2024 1:12 PM CDT) Neutrophil abs 13.0(H) 1.5 - 6.5 K/cumm Comment:Testing performed by : [address] [address] Imm gran abs 0.1 0.0 - 0.1 K/cumm PAVEL Comment:Testing performed by : [address] [address] Lymphocyte abs 0.6(L) 0.8 - 3.3 K/cumm PAVEL Comment:Testing performed by : [address] [address] Monocyte abs 1.5(H) 0.2 - 0.8 K/cumm PAVEL Comment:Testing performed by : [address] [address] Eosinophil abs 0.0 0.0 - 0.5 K/cumm PAVEL Comment:Testing performed by : [address] [address] Basophil abs 0.0 0.0 - 0.1 K/cumm PAVEL Comment:Testing performed by : [address] [address] Neutrophil pct 85.3 % [facility]EL Comment: Interpretive Data Percent cell count reference ranges are not reported, since discordance with absolute values may lead to misinterpretation of CBC data. Current Interpretive Data was last revised on 2017. Testing performed by: [address] [address] Imm gran pct 0.6 % [facility]EL Comment: Interpretive Data Percent cell count reference ranges are not reported, since discordance with absolute values may lead to misinterpretation of CBC data. Current Interpretive Data was last revised on 2017. Testing performed by: [address] [address] Lymphocyte pct 3.9 % P[facility] Comment: Interpretive Data Percent cell count reference ranges are not reported, since discordance with absolute values may lead to misinterpretation of CBC data. Current Interpretive Data was last revised on 2017. Testing performed by: [address] [address] Monocyte pct 10.0 % [facility]EL Comment: Interpretive Data Percent cell count reference ranges are not reported, since discordance with absolute values may lead to misinterpretation of CBC data. Current Interpretive Data was last revised on 2017. Testing performed by: [address] [address] Eosinophil pct 0.1 % P[facility]EL Comment: Interpretive Data Percent cell count reference ranges are not reported, since discordance with absolute values may lead to misinterpretation of CBC data. Current Interpretive Data was last revised on 2017. Testing performed by: [address] [address] Basophil pct 0.1 % [facility] Comment: Interpretive Data Percent cell count reference ranges are not reported, since discordance with absolute values may lead to misinterpretation of CBC data. Current Interpretive Data was last revised on 2017. Testing performed by: [address] [address] Blood 10/17/2024 1:12 PM CDT 10/17/2024 1:40 PM CDT Jonathan Angel Lentz LAB BLOOD ORDERABLES Final Result [facility] [address] [facility] [place] [address] * (ABNORMAL) CBC with auto differential (10/17/2024 1:12 PM CDT) WBC 15.3(H) 3.8 - 9.9 K/cumm Comment:Testing performed by : [address] [address] Hgb 9.7(L) 13.0 - 17.5 g/dL PAVEL Comment:Testing performed by : [address] [address] Hct 29.8(L) 38.9 - 50.3 % [facility]EL Comment:Testing performed by : [address] [address] Plt 348 150 - 400 K/cumm PAVEL Comment:Testing performed by : [address] [address] MPV 9.8 9.1 - 12.3 fL [facility]EL Comment:Testing performed by : [address] [address] RBC 3.24(L) 4.30 - 5.80 M/cumm PAVEL Comment:Testing performed by : [address] [address] MCV 92.0 81.3 - 96.4 fL PAVEL Comment:Testing performed by : [address] [address] MCH 29.9 27.1 - 33.3 pg PAVEL Comment:Testing performed by : [address] [address] MCHC 32.6 32.3 - 35.7 g/dL P[facility]EL Comment:Testing performed by : [address] [address] RDW CV 15.0(H) 11.1 - 14.9 % PAVEL Comment:Testing performed by : [address] [address] RDW SD 51.2(H) 35.7 - 48.1 fL P[facility]EL Comment:Testing performed by : [address] [address] NRBC abs 0.00 0.00 - 0.01 K/cumm PAVEL Comment:Testing performed by : [address] [address] Blood 10/17/2024 1:12 PM CDT 10/17/2024 1:40 PM CDT [facility]LOOD ORDERABLES Final Result Performing Organization Address [facility]/ZIP Co de Phone Number [address] [place] [employer] [address] * Magnesium (10/17/2024 1:12 PM CDT) Pathologist [facility] Magnesium 1.5 1.4 - 2.5 mg/dL Comment:Testing performed by : [address] [address] Blood 10/17/2024 1:12 PM CDT 10/17/2024 1:40 PM CDT [facility] BLOOD ORDERABLES Final Result Performing Organization Address City/[facility] Co de Phone Number [address] [address] * (ABNORMAL) Comprehensive metabolic panel (10/17/2024 1:12 PM CDT) Pathologist [facility] Sodium 136 135 - 145 mmol/L Comment:Testing performed by : [address] [address] Potassium, pl 4.5 3.3 - 4.9 mmol/L [facility] Comment: Hemolyzed; Potassium value may be falsely elevated by as much as 1.0 mmol/L. Suggest redraw and reanalysis. Testing performed by: [address], [place]., [address] Chloride 98 97 - 110 mmol/L [facility] Comment:Testing performed by : [address] [address] CO2 23 22 - 32 mmol/L [facility] Comment:Testing performed by : [address], [place]., [address] Anion gap 15 2 - 15 mmol/L [facility] Comment:Testing performed by : [address] [address] BUN 56(H) 6 - 25 mg/dL [facility] Comment:Testing performed by : [address], [place]., [address] Creatinine 4.86(H) 0.80 - 1.30 mg/dL [facility] Comment:Testing performed by : [address] [address] Glucose 119 70 - 199 mg/dL [facility] Comment: Interpretive Data Fasting glucose >/= 126 [...] was last revised 2022. Testing performed by: [address] [address] Calcium 10.5(H) 8.5 - 10.3 mg/dL [facility] Comment:Testing performed by : [address], [place]., [address] Bilirubin, total 0.6 0.1 - 1.2 mg/dL [facility] Comment:Testing performed by : [address], [place] [address] Protein, pl 7.3 6.5 - 8.5 g/dL [facility] Comment:Testing performed by : [facility], [address] [place] [address]., [address] Albumin 3.6 3.5 - 5.0 g/dL [facility]O Comment:Testing performed by : [address] [address] Alk phos 91 40 - 130 Units/L [facility] Comment:Testing performed by : [facility], [address] [place] [address]., [address] ALT 22 7 - 55 Units/L [facility] Comment:Testing performed by : [address] [address] AST 29 10 - 50 Units/L [facility] Comment: Hemolyzed; result may be falsely elevated Testing performed by: [address] [address] Blood 10/17/2024 1:12 PM CDT 10/17/2024 1:40 PM CDT Jonathan Lentz DO LAB BLOOD ORDERABLES Final Result [facility] [address] [facility] [place] [address] from Last 3 Months
--- OUTSIDE RECORDS SUMMARY | 2024-12-23 17:13 | XMS_ITS | Clinical Summary ---
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 03/21/2024 Chronic obstructive pulmonary disease 03/21/2024 CKD (chronic kidney disease), stage V 03/21/2024 Secondary hyperparathyroidism of renal origin Asymptomatic stenosis of left carotid artery Assessment & Plan (09/01/2024 10:18 AM NURSING CENTER TUTOR): Iiqs-vs-[id number] disease to the right ICA moderate disease [...] 10/18/2024 11/02/2024 Coronary artery disease invo lving quinault coronary artery of quinault heart without angina pectoris 05/26/2019 03/21/2024 Encounters Date Type Department Care Team Description 5 Telephone [facility] [address] [phone] Orlando Porter MD 5 1:30 PM CDT Office Visit [facility] [address] [place] [phone] Orlando Porter MD History of coronary artery stent placement (Primary Dx); 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; Longstanding persistent atrial fibrillation (HCC) 5 Telephone [facility] Surgery [address] [place] [address] [place] [address] Jon Pope MD PhD 5 Telephone [facility] Surgery [address] [place] [address] [place] [address] Jon Pope MD PhD 5 2:00 PM CDT Office Visit [address] [place] [address] 5 1:45 PM CDT Office Visit [facility] Surgery [address] [place] [address] [place] [address] Jon Pope MD PhD ESRD on hemodialysis (HCC) (Primary Dx); ESRD on dialysis (HCC); CKD (chronic kidney disease), stage V (HCC) 5 Telephone [facility] [place] [address] [facility] [address] [place] [phone] Rigoberto Croft MD Request For Order(s) 5 3:39 PM CDT - 5 11:59 PM CDT Hospital Encounter [facility] Respiratory Therapy [address] [place] [address] Simple chronic bronchitis (HCC) Discharge Disposition: Discharge to home or self care 5 1:00 PM CDT Office Visit [facility] Medical [facility] Primary Care [address] [facility] [address] [place] [phone] Jackie Umanzor NP CAP (community acquired pneumonia) [...] adult 5 12:15 PM CDT Office Visit [facility] Pulmonary [address] [place] [address] Rigoberto Croft MD Simple chronic bronchitis (HCC) (Primary Dx); Dyspnea on exertion; Chronic systolic congestive heart failure (HCC) 5 10:00 AM CDT Office Visit [facility] Cardiology [address] [facility] [address] [place] [address] Rosi Corrales NP Atrial fibrillation, unspecified type (HCC) (Primary Dx); Chronic systolic congestive heart failure (HCC); Coronary artery disease involving quinault coronary artery of quinault heart without angina pectoris; Hemodialysis-associated hypotension; CKD (chronic kidney disease), stage V (HCC) 5 Telephone [facility] 12th [place] [address] Jon Pope MD PhD 5 Telephone [facility] Medical [facility] Primary Care [facility] [address] [place] [phone] Soraya Jauregui MD Appointment Request [address] [place] [address] Maxine Sr RN 5 12:00 PM CDT Home Care Visit [facility] Hospice - [address] [place] [address] Eloina Corbin RN SN HOSPICE TELEPHONE VISIT 5 Telephone [facility] Medical [facility] Primary Care [address] [place] [address] Soraya Jauregui MD Medical Question/Miscellaneous; Palliative Care Follow-up 5 Telephone [facility] [address] [place] [address] Soraya Jauregui MD Appointment Request 5 TCC Subsequent Outreach [facility] [address] [place] [address] Bebeto Kelly RN 5 11:30 AM CDT - 5 12:30 PM CDT Surgery [facility] Cardiac Private Branch Exchange Service Advisor [address] [place] [phone] Lucius Jauregui MD INSERT TUNNELED CV CATH W/PORT OR PUMP >5YO 07059 5 9:30 AM CDT - 5 10:30 AM CDT Surgery [facility] Cardiac Private Branch Exchange Service Advisor [address] [place] [phone] Lucius Jauregui MD INSERT TUNNELED CV CATH W/PORT OR PUMP >5YO 57375 5 TCC Initial Eligibility Review [facility] [address] [place] [address] Bebeto Kelly RN 5 2:23 PM CDT - 5 2:52 PM CDT Hospital Encounter [address] [address] Jonathan Lentz DO Bezuneh, Abraham Deneke, MD [...] to home or self care 5 Telephone [facility] Group Primary Care [address] [place] [phone] Soraya Jauregui MD from Last 3 [...] drink = 0.6 oz pur e alcohol) [facility] Utilities Answer Date Recorded In the past 12 months has e electric, gas, oil, or water [employer] threatened to shut off services in your [...] often do you attend chur ch or scientologist services? Patient unable to answer 11/10/2024 Do you belong to any clubs o r organizations such as religious groups, unions, fraternal or athletic groups, or [...] time in the past 12 m [facility], were you homeless or living in a halfway (including now)? Patient unable to answer 11/10/2024 Personal Safety Answer Date Recorded Have you ever been in or are you currently in a harmful physical or emotional relationship or is someone making you feel afraid or unsafe? Denies 10/21/2024 Sex and Gender Information Value Date Recorded Sex Assigned at Not on file Legal Sex Male 8:02 PM NURSING CENTER TUTOR Gender Identity Not on file Sexual Orientation [...] Description 01/03/2025 7:30 AM CDT Hospital Encounter [facility] Operating Room [address] [place] [address] Jon Pope MD PhD [address]06 [place] [address] 01/03/2025 7:30 AM CDT Anesthesia Event [facility] Operating Room [address] [place] [address] China Mercado, JUNIOR [address] [facility] MA[address] [phone] [place] [address] 01/03/2025 7:30 AM CDT - 01/03/2025 11:15 AM CDT Surgery [facility] Operating Room [address] [place] [address] Jon Pope MD PhD [id number] [place] [address] CREATION ARTERIOVENOUS FISTULA - ARM Scheduled Procedures [...] 11/25/2024, 025 Medical Devices Implanted Type Area Gang Leader Device Identifier Shelf Expiration Date Model / Serial / Lot [employer] Mahurkar Elite Double-D 12fr 24cm 2 Lumen Atraumatic Tip [id number] - [id number] Implanted:Qty: 1 on 10/21/2024 by Lucius Jauregui MD at [facility] [employer]social [id number] / / [email or web address] Peripheral Vascular Kit Catheter Hemodialysis Dual Lumen Straight Mcfp Polyurethane Glidepath [id number] - [id number] Implanted:Qty: 1 on 10/25/2024 by Lucius Jauregui MD at [facility] [email or web address] Peripheral Vascular [id number] / / Procedures Procedure Name Priority Date/Time [...] TUNNELED CV CATH W/PORT OR PUMP >5YO [address] Routine 10/25/2024 11:38 AM CDT CKD (chronic [...] PM CDT Acute hypoxic respiratory failure (HCC) DC INSJ NON-TUNNELED CENTRAL VENOUS CATH AGE 5 [...] TUNNELED CV CATH W/PORT OR PUMP >5YO 00[address] Routine 10/21/2024 10:01 AM CDT CKD (chronic [...] HD Access (12/15/2024 1:56 PM CDT) Narrative [facility]PACS[facility] - 12/15/2024 1:56 PM CDT This procedure was performed and interpreted by the provider. Please refer to the provider's procedure/OR operative note for results. us Jon Pope MD PhD POCUS ORDERABLES Final Re sult RAD_PACS_POCUS_[facility] * (ABNORMAL) Pulmonary Function Test - (11/22/2024 4:36 PM CDT) FVC POST 4.06 3.52 - 6.12 L [facility] FEV1 POST 1.95(A) 2.52 - 4.52 L [facility] [id number] 48.03(A) 60.59 - 86.91 % [facility] AVO99-38% POST 0.68(A) 1.02 - 4.65 L/s [facility] PEF POST 3.36(A) 6.67 - 10.66 L/s [facility] DLCOc SB 8.46(A) 23.68 - 37.54 ml/(min*mm Hg) [facility] DLCO/VA PRE 1.70(A) 2.75 - 4.77 ml/(min*mm Hg*L) [facility] VA 4.99(A) 7.99 - 7.99 L [facility] TLC PRE 8.85 6.99 - 9.29 L [facility] VC PRE 3.88(A) 3.98 - 5.82 L [facility] IC PRE 2.83(A) 3.76 - 3.76 L [facility] FRC PL PRE 6.02(A) 3.05 - 5.02 L [facility] ERV PRE 1.05(A) 1.14 - 1.14 L [facility] RV PRE 4.97(A) 2.22 - 3.57 L [facility] VTG 6.09 L [facility] RAW PRE 4.02(A) 3.06 - 3.06 cmH2O*s/L [facility] FVC PRE 3.88 3.52 - 6.12 L [facility] FEV1 PRE 1.94(A) 2.52 - 4.52 L [facility] [id number] 50.01(A) 60.59 - 86.91 % [facility] VID01-93% PRE 0.49(A) 1.02 - 4.65 L/s [facility] PEF PRE 3.40(A) 6.67 - 10.66 L/s [facility] Anatomical Region Laterality Modality PFT [...] correlation. Electronically signed by Temo Chaves MD, [facility] Pul[facility] Critical Care Medicine [facility] Medical Group us Rigoberto Croft MD PFT [...] LAB BLOOD ORDERABLES Fin al Result [facility] [address] [facility] Department [place] [address] * (ABNORMAL) Differential, auto (10/27/2024 2:44 AM CDT) Neutrophil abs 24.2(H) 1.5 - 6.5 K/cumm Imm gran abs 1.2(H) 0.0 - 0.1 K/cumm [facility] Lymphocyte abs 1.9 0.8 - 3.3 K/cumm [facility] Monocyte abs 1.3(H) 0.2 - 0.8 K/cumm [facility] Eosinophil abs 0.1 0.0 - 0.5 K/cumm [facility] Basophil abs 0.1 0.0 - 0.1 K/cumm [facility] Neutrophil pct 84.2 % [facility] Comment: Interpretive Data Percent cell count reference ranges are not reported, since discordance with absolute values may lead to misinterpretation of CBC data. Current Interpretive Data was last revised on 2017. Imm gran pct 4.1 % [facility] Comment: Interpretive Data Percent cell count reference ranges are not reported, since discordance with absolute values may lead to misinterpretation of CBC data. Current Interpretive Data was last revised on 2017. Lymphocyte pct 6.5 % [facility] Comment: Interpretive Data Percent cell count reference ranges are not reported, since discordance with absolute values may lead to misinterpretation of CBC data. Current Interpretive Data was last revised on 2017. Monocyte pct 4.5 % [facility] Comment: Interpretive Data Percent cell count reference ranges are not reported, since discordance with absolute values may lead to misinterpretation of CBC data. Current Interpretive Data was last revised on 2017. Eosinophil pct 0.2 % [facility] Comment: Interpretive Data Percent cell count reference ranges are not reported, since discordance with absolute values may lead to misinterpretation of CBC data. Current Interpretive Data was last revised on 2017. Basophil pct 0.5 % [facility] Comment: Interpretive Data Percent cell count reference ranges are not reported, since discordance with absolute values may lead to misinterpretation of CBC data. Current Interpretive Data was last revised on 2017. Blood 10/27/2024 2:44 AM CDT 10/27/2024 2:56 AM CDT Barbara Collins MD LAB BLO OD ORDERABLES Final Result Performing Organization Address [facility] Co de Phone Number [address] [place] [address] * (ABNORMAL) CBC with auto differential (10/27/2024 2:44 AM CDT) WBC 28.7(H) 3.8 - 9.9 K/cumm Hgb 10.1(L) 13.0 - 17.5 g/dL [facility] Hct 34.7(L) 38.9 - 50.3 % [facility] Plt 298 150 - 400 K/cumm [facility] MPV 10.3 9.1 - 12.3 fL [facility] RBC 3.44(L) 4.30 - 5.80 M/cumm [facility] MCV 100.9(H) 81.3 - 96.4 fL [facility] MCH 29.4 27.1 - 33.3 pg [facility] MCHC 29.1(L) 32.3 - 35.7 g/dL [facility] RDW CV 16.1(H) 11.1 - 14.9 % [facility] RDW SD 58.0(H) 35.7 - 48.1 fL [facility] NRBC abs 0.04(H) 0.00 - 0.01 K/cumm [facility] Blood 10/27/2024 2:44 AM CDT 10/27/2024 2:56 AM CDT Barbara Collins MD LAB BLO OD ORDERABLES Final Result Performing Organization Address [facility] Co de Phone Number [facility] [address] [place] [address] * (ABNORMAL) Basic metabolic panel (10/27/2024 2:44 AM CDT) [facility] Sodium 136 135 - 145 mmol/L Potassium, pl 4.8 3.3 - 4.9 mmol/L [facility] Chloride 100 97 - 110 mmol/L [facility] CO2 17(L) 22 - 32 mmol/L [facility] Anion gap 19(H) 2 - 15 mmol/L [facility] BUN 93(H) 6 - 25 mg/dL [facility] Creatinine 6.56(H) 0.80 - 1.30 mg/dL [facility] Glucose 115 70 - 199 mg/dL [facility] Comment: Interpretive Data Fasting glucose >/= [...] Calcium 8.2(L) 8.5 - 10.3 mg/dL [facility] Blood 10/27/2024 2:44 AM CDT 10/27/2024 2:57 AM CDT Carmen Walter MD LAB BLOOD ORDERABLES Fin al Result [facility] [address] [facility] Department [place] [address] * (ABNORMAL) eGFR (10/26/2024 2:55 AM CDT) [facility] eGFR 9(L) >=60 mL/min/1. 73 m2 Comment: [...] MD LAB BLOOD ORDERABLES Final Result [facility] [address] [facility] Department of Laboratories [place], [place] [phone] * (ABNORMAL) Differential, auto (10/26/2024 2:55 AM CDT) Neutrophil abs 23.2(H) 1.5 - 6.5 K/cumm Imm gran abs 1.5(H) 0.0 - 0.1 K/cumm [facility] Lymphocyte abs 2.2 0.8 - 3.3 K/cumm [facility] Monocyte abs 1.2(H) 0.2 - 0.8 K/cumm [facility] Eosinophil abs 0.0 0.0 - 0.5 K/cumm [facility] Basophil abs 0.1 0.0 - 0.1 K/cumm [facility] Neutrophil pct 82.2 % [facility] Comment: Interpretive Data Percent cell count reference ranges are not reported, since discordance with absolute values may lead to misinterpretation of CBC data. Current Interpretive Data was last revised on 2017. Imm gran pct 5.3 % [facility] Comment: Interpretive Data Percent cell count reference ranges are not reported, since discordance with absolute values may lead to misinterpretation of CBC data. Current Interpretive Data was last revised on 2017. Lymphocyte pct 7.7 % [facility] Comment: Interpretive Data Percent cell count reference ranges are not reported, since discordance with absolute values may lead to misinterpretation of CBC data. Current Interpretive Data was last revised on 2017. Monocyte pct 4.4 % [facility] Comment: Interpretive Data Percent cell count reference ranges are not reported, since discordance with absolute values may lead to misinterpretation of CBC data. Current Interpretive Data was last revised on 2017. Eosinophil pct 0.1 % [facility] Comment: Interpretive Data Percent cell count reference ranges are not reported, since discordance with absolute values may lead to misinterpretation of CBC data. Current Interpretive Data was last revised on 2017. Basophil pct 0.3 % [facility] Comment: Interpretive Data Percent cell count reference ranges are not reported, since discordance with absolute values may lead to misinterpretation of CBC data. Current Interpretive Data was last revised on 2017. Blood 10/26/2024 2:55 AM CDT 10/26/2024 3:32 AM CDT Barbara Collins MD LAB BLO OD ORDERABLES Final Result [facility] [address] [facility] Department [place] [address] * (ABNORMAL) CBC with auto differential (10/26/2024 2:55 AM CDT) WBC 28.2(H) 3.8 - 9.9 K/cumm Hgb 9.7(L) 13.0 - 17.5 g/dL [facility] Hct 30.2(L) 38.9 - 50.3 % [facility] Plt 414(H) 150 - 400 K/cumm [facility] MPV 9.7 9.1 - 12.3 fL [facility] RBC 3.22(L) 4.30 - 5.80 M/cumm [facility] MCV 93.8 81.3 - 96.4 fL [facility] MCH 30.1 27.1 - 33.3 pg [facility] MCHC 32.1(L) 32.3 - 35.7 g/dL [facility] RDW CV 15.5(H) 11.1 - 14.9 % [facility] RDW SD 52.6(H) 35.7 - 48.1 fL [facility] NRBC abs 0.02(H) 0.00 - 0.01 K/cumm [facility] Blood 10/26/2024 2:55 AM CDT 10/26/2024 3:32 AM CDT Barbara Collins MD LAB BLO OD ORDERABLES Final Result [facility] [address] [facility] Department [place] [address] * (ABNORMAL) Basic metabolic panel (10/26/2024 2:55 AM CDT) Sodium 139 135 - 145 mmol/L Potassium, pl 4.7 3.3 - 4.9 mmol/L [facility] Chloride 98 97 - 110 mmol/L [facility] CO2 28 22 - 32 mmol/L [facility] Anion gap 13 2 - 15 mmol/L [facility] BUN 79(H) 6 - 25 mg/dL [facility] Creatinine 5.97(H) 0.80 - 1.30 mg/dL [facility] Glucose 107 70 - 199 mg/dL [facility] Comment: Interpretive Data Fasting glucose >/= [...] Calcium 9.1 8.5 - 10.3 mg/dL [facility] Blood 10/26/2024 2:55 AM CDT 10/26/2024 3:31 AM CDT us Uday Jones MD LAB BLOOD ORDERABLES Final Result [facility] [address] [facility] Department [place] [address] * CT Chest Abdomen Pelvis WO Contrast [...] by Jonathan Romero M.D. T: Report ID: [id number] Reading Location: [place] [address] Procedure Note Jonathan Romero MD - 10/25/2024 [...] by Jonathan Romero M.D. T: Report ID: [id number] Reading Location: [place] [address] us Jah Vargas MD IM CT PROCEDURES [...] ORDERABLES F inal Result Performing Organization Address [facility] Co de Phone Number [facility] [address] [place] [address] * (ABNORMAL) Hepatic function panel (10/25/2024 1:04 PM CDT) Pathologist [facility] Bilirubin, total 0.4 0.1 - 1.2 mg/dL Bilirubin, direct 0.2 0.1 - 0.3 mg/dL [facility] Protein, pl 6.4(L) 6.5 - 8.5 g/dL [facility] Albumin 3.5 3.5 - 5.0 g/dL [facility] Alk phos 73 40 - 130 Units/L [facility] ALT 30 7 - 55 Units/L [facility] AST 23 10 - 50 Units/L [facility] Blood 10/25/2024 1:04 PM CDT 10/25/2024 1:13 PM CDT Narrative [facility] - 10/25/2024 1:36 PM CDT Baseline prior to apixaban initiation. Carlos Castro MD LAB BLOOD ORDERABLES F inal Result Performing Organization Address City/[facility] Co de Phone Number [facility] [place] [address] * XR Chest 1 View (10/25/2024 12:25 [...] signed by Oliverio GREENE T: Report ID: [id number] Reading Location: [id number] Procedure Note Oliverio Steinberg MD - 10/25/2024 [...] Oliverio Steinberg M.D. LB T: Report ID: [id number] Reading Location: [id number] Lucius Jauregui MD IMG XR PROCEDURES Final Result * INSERT TUNNELED CV CATH W/PORT OR PUMP >5YO [id number] (10/25/2024 11:38 AM CDT) Anatomical Region Laterality [...] MD LAB BLOOD ORDERABLES Final Resul t [facility] [address] [facility] Department of Laboratories [place], [place] [id number] * Heparin anti factor Xa activity (10/25/2024 [...] ORDERABLES Cherise l Result Performing Organization Address City/[facility] Co de Phone Number [facility] [address] [place] [address] * (ABNORMAL) eGFR (10/25/2024 3:26 AM CDT) [...] ORDERABLES Fin al Result Performing Organization Address City/[facility]/ZIP Co de Phone Number [facility] [address] [place] [address] * (ABNORMAL) Differential, auto (10/25/2024 3:26 AM CDT) Pathologist [facility] Neutrophil abs 24.9(H) 1.5 - 6.5 K/cumm Imm gran abs 2.8(H) 0.0 - 0.1 K/cumm [facility] Lymphocyte abs 1.8 0.8 - 3.3 K/cumm [facility] Monocyte abs 1.0(H) 0.2 - 0.8 K/cumm [facility] Eosinophil abs 0.0 0.0 - 0.5 K/cumm [facility] Basophil abs 0.2(H) 0.0 - 0.1 K/cumm [facility] Neutrophil pct 81.3 % [facility] Comment: Interpretive Data Percent cell count reference ranges are not reported, since discordance with absolute values may lead to misinterpretation of CBC data. Current Interpretive Data was last revised on 2017. Imm gran pct 9.1 % [facility] Comment: Interpretive Data Percent cell count reference ranges are not reported, since discordance with absolute values may lead to misinterpretation of CBC data. Current Interpretive Data was last revised on 2017. Lymphocyte pct 5.8 % [facility] Comment: Interpretive Data Percent cell count reference ranges are not reported, since discordance with absolute values may lead to misinterpretation of CBC data. Current Interpretive Data was last revised on 2017. Monocyte pct 3.1 % [facility] Comment: Interpretive Data Percent cell count reference ranges are not reported, since discordance with absolute values may lead to misinterpretation of CBC data. Current Interpretive Data was last revised on 2017. Eosinophil pct 0.1 % [facility] Comment: Interpretive Data Percent cell count reference ranges are not reported, since discordance with absolute values may lead to misinterpretation of CBC data. Current Interpretive Data was last revised on 2017. Basophil pct 0.6 % [facility] Comment: Interpretive Data Percent cell count reference ranges are not reported, since discordance with absolute values may lead to misinterpretation of CBC data. Current Interpretive Data was last revised on 2017. Blood 10/25/2024 3:26 AM CDT 10/25/2024 3:38 AM CDT Matteo Julian MD LAB BLOOD ORDERABLES Cherise l Result Performing Organization Address [facility] Co de Phone Number [address] [address] * (ABNORMAL) CBC with auto differential (10/25/2024 3:26 AM CDT) [facility] WBC 30.5(H) 3.8 - 9.9 K/cumm Hgb 10.0(L) 13.0 - 17.5 g/dL [facility] Hct 32.0(L) 38.9 - 50.3 % [facility] Plt 285 150 - 400 K/cumm [facility] MPV 9.9 9.1 - 12.3 fL [facility] RBC 3.35(L) 4.30 - 5.80 M/cumm [facility] MCV 95.5 81.3 - 96.4 fL [facility] MCH 29.9 27.1 - 33.3 pg [facility] MCHC 31.3(L) 32.3 - 35.7 g/dL [facility] RDW CV 15.6(H) 11.1 - 14.9 % [facility] RDW SD 53.7(H) 35.7 - 48.1 fL [facility] NRBC abs 0.02(H) 0.00 - 0.01 K/cumm [facility] Blood 10/25/2024 3:26 AM CDT 10/25/2024 3:38 AM CDT Barbara Collins MD LAB BLO OD ORDERABLES Final Result Performing Organization Address [facility] [place] [facility] Co de Phone Number [facility] [address] [facility] [place] [address] * (ABNORMAL) Basic metabolic panel (10/25/2024 3:26 AM CDT) [facility] Sodium 137 135 - 145 mmol/L Potassium, pl 5.6(H) 3.3 - 4.9 mmol/L [facility] Comment:Hemolyzed; Potassium value may be falsely elevated by as much as 1.0 mmol/L. Suggest redraw and reanalysis. Chloride 100 97 - 110 mmol/L [facility] CO2 20(L) 22 - 32 mmol/L [facility] Anion gap 17(H) 2 - 15 mmol/L [facility] BUN 78(H) 6 - 25 mg/dL [facility] Creatinine 5.26(H) 0.80 - 1.30 mg/dL [facility] Glucose 128 70 - 199 mg/dL [facility] Comment: Interpretive Data Fasting glucose >/= [...] Calcium 8.4(L) 8.5 - 10.3 mg/dL [facility] Blood 10/25/2024 3:26 AM CDT 10/25/2024 3:37 AM CDT Carmen Walter MD LAB BLOOD ORDERABLES Fin al Result [facility] [address] [facility] Department [place] [address] * Heparin anti factor Xa activity (10/24/2024 11:39 PM CDT) [facility] Anti Factor Xa 0.68 IUnits/mL Comment: Interpretive [...] LAB BLOOD ORDERABLE S Final Result [facility] [address] [facility] Department [place] [address] * (ABNORMAL) Heparin anti factor Xa activity (10/24/2024 2:55 PM CDT) Anti Factor Xa >1.10(C) IUnits/mL Comment: Critical value. Results called to and read back by: Critical Result called to and read back by [email or web address], DATE: 2024-10-24 15:38:22 BY: [id number] Interpretive Data Enoxaparin therapeutic range (peak): VTE [...] ORDERABLE S Final Result Performing Organization Address [facility] [place] [facility] de Phone Number [address] [address] * Hepatitis B core antibody, total Blood (10/24/2024 2:55 PM CDT) Pathologist [facility] Hep B core IgG/IgM Nonreactive Nonreactive Comment:Testing performed by : [facility], [address] [place] [address]., [address] Blood 10/24/2024 2:55 PM CDT 10/24/2024 5:23 PM CDT Milana Maloney MD LAB MICROBIOLOGY - GENERAL ORDERABLES Final Result Performing Organization Address [facility] [place] [facility] de Phone Number [address] [address] * Hepatitis B (HBV) DNA PCR, quantitative Blood (10/24/2024 2:55 PM CDT) [facility] HBV DNA Result Not Detected [facility] Comment: The quantifiable range of this assay is 10 IU/mL to 1,000,000,000 IU/mL (1.00 log IU/mL to 9.00 log IU/mL). Testing was performed by the [employer] [id number] HBV Test version 2.0 ([employer] Testing performed at [facility] Current Interpretive Data was last revised on 2021. Testing performed by: [facility], [address] [place] [address]., [address] Blood 10/24/2024 2:55 PM CDT 10/24/2024 7:39 PM CDT Milana Maloney MD LAB MICROBIOLOGY - GENERAL ORDERABLES Final Result Performing Organization Address City/[facility] Co de Phone Number [address] [address] [facility] * Hepatitis B Surface Antigen Blood (10/24/2024 2:55 PM CDT) Pathologist [facility] HepBsAg Nonreactive Nonreactive Blood 10/24/2024 2:55 PM CDT 10/24/2024 3:10 PM CDT Milana Maloney MD LAB MICROBIOLOGY - GENERAL ORDERABLES Final Result Performing Organization Address [facility] Phone Number [address] [address] * ECG 12 lead (10/24/2024 8:10 AM CDT) [facility] Ventricular Rate EKG/Min 83 BPM [facility] QRS-Interval (MSEC) 152 ms [facility] QT-Interval (MSEC) 420 ms [facility] QTc 493 ms [facility] R [place] -86 degrees [facility] T [place] 85 degrees [facility] Diagnosis 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 ([id number]) on 10/24/2024 2:50:52 PM [facility] 10/24/2024 8:10 AM CDT 10/24/2024 2:50 PM CDT us August Roger MD ECG ORDERABLES Final R esult Performing Organization Address [facility] [place] [facility] Co de Phone Number [facility] * (ABNORMAL) eGFR (10/24/2024 5:46 AM CDT) Pathologist [facility] eGFR 9(L) >=60 mL/min/1. 73 m2 [...] MD LAB BLOOD ORDERABLES Fin al Result YUNIORQSM [address] [facility] Department of Laboratories [place], [place] [id number] * Heparin anti factor Xa activity (10/24/2024 5:46 AM CDT) Pathologist [facility] Anti Factor Xa 0.71 IUnits/mL Comment: Ref [...] MD LAB BLOOD ORDERABLE S Final Result [place] [id number] [facility] Department [place] [address] * (ABNORMAL) CBC with auto differential (10/24/2024 5:46 AM CDT) Pathologist [facility] WBC 40.6(H) 3.8 - 9.9 K/cumm Hgb 9.7(L) 13.0 - 17.5 g/dL [facility] Hct 31.2(L) 38.9 - 50.3 % [facility] Plt 453(H) 150 - 400 K/cumm [facility] MPV 9.6 9.1 - 12.3 fL [facility] RBC 3.33(L) 4.30 - 5.80 M/cumm [facility] MCV 93.7 81.3 - 96.4 fL [facility] MCH 29.1 27.1 - 33.3 pg [facility] MCHC 31.1(L) 32.3 - 35.7 g/dL [facility] RDW CV 15.5(H) 11.1 - 14.9 % [facility] RDW SD 52.6(H) 35.7 - 48.1 fL [facility] NRBC abs 0.04(H) 0.00 - 0.01 K/cumm [facility] Blood 10/24/2024 5:46 AM CDT 10/24/2024 6:08 AM CDT us Barbara Collins MD LAB BLO OD ORDERABLES Final Result [facility] [address] [facility] Department [place] [address] * (ABNORMAL) Manual Differential (10/24/2024 5:46 AM CDT) Differential Manual Cells Counted 100 [facility] Neutrophil abs 35.3(H) 1.5 - 6.5 K/cumm [facility] Imm gran abs 2.0(H) 0.0 - 0.1 K/cumm [facility] Lymphocyte abs 2.0 0.8 - 3.3 K/cumm [facility] Monocyte abs 1.2(H) 0.2 - 0.8 K/cumm [facility] Neutrophil pct 87.0 % [facility] Comment: Interpretive Data Percent cell count reference ranges are not reported, since discordance with absolute values may lead to misinterpretation of CBC data. Current Interpretive Data was last revised on 2017. Lymphocyte pct 5.0 % [facility] Comment: Interpretive Data Percent cell count reference ranges are not reported, since discordance with absolute values may lead to misinterpretation of CBC data. Current Interpretive Data was last revised on 2017. Monocyte pct 3.0 % [facility] Comment: Interpretive Data Percent cell count reference ranges are not reported, since discordance with absolute values may lead to misinterpretation of CBC data. Current Interpretive Data was last revised on 2017. Metamyelocyte pct 5.0(H) 0.0 - 0.0 % [facility] RBC morphology Present(A) [facility] Hypochromasia 3-7/HPF(A) [facility] Poikilocytosis Moderate(A) [facility] Macrocytes 3-7/HPF(A) [facility] Elliptocytes 8-15/HPF(A) [facility] Platelet estimate Automated Count Confirmed [facility] Blood 10/24/2024 5:46 AM CDT 10/24/2024 6:08 AM CDT us Matteo Julian MD LAB BLOOD ORDERABLES Cherise l Result Performing Organization Address City/[facility]/ZIP Co de Phone Number [address] [address] * (ABNORMAL) Basic metabolic panel (10/24/2024 5:46 AM CDT) [facility] Sodium 141 135 - 145 mmol/L Potassium, pl 4.9 3.3 - 4.9 mmol/L [facility] Chloride 99 97 - 110 mmol/L [facility] CO2 26 22 - 32 mmol/L [facility] Anion gap 16(H) 2 - 15 mmol/L [facility] BUN 102(H) 6 - 25 mg/dL [facility] Creatinine 6.14(H) 0.80 - 1.30 mg/dL [facility] Glucose 122 70 - 199 mg/dL [facility] Comment: Interpretive Data Fasting glucose >/= [...] Calcium 9.2 8.5 - 10.3 mg/dL [facility] Blood 10/24/2024 5:46 AM CDT 10/24/2024 6:08 AM CDT Carmen Walter MD LAB BLOOD ORDERABLES Fin al Result Performing Organization Address City/[facility]/ZIP Co de Phone Number [address] [place] [address] * Heparin anti factor Xa activity (10/23/2024 5:11 PM CDT) [facility] Anti Factor Xa 0.62 IUnits/mL Comment: Interpretive [...] ORDERABLES Final R esult Performing Organization Address City/[facility] Co de Phone Number [address] [place] [place] [address] * (ABNORMAL) BUN (10/23/2024 2:56 PM CDT) [facility] BUN 93(H) 6 - 25 mg/dL Blood 10/23/2024 2:56 PM CDT 10/23/2024 3:09 PM CDT Narrative [facility] - 10/23/2024 3:25 PM CDT Pre-Dialysis Carmen Walter MD LAB BLOOD ORDERABLES Fin al Result Performing Organization Address City/[facility]/ZIP Co de Phone Number [address] [place] [address] * Blood culture Blood (10/23/2024 10:33 AM CDT) Report Final Report: No growth Comment:Testing performed by : [facility], [address] [facility], [place]., [address] Blood 10/23/2024 10:3 3 AM CDT 10/23/2024 [...] performance characteristics have been verified by the [facility] Microbiology Laboratory. For questions about this culture, contact the Microbiology Laboratory at [phone]. Interpretive data was last revised on 24. Milana Maloney MD LAB MICROBIOLOGY - GENERAL ORDERABLES Final Result [facility] [address] [facility] Department [place] [address] * Heparin anti factor Xa [...] Angulo MD LAB BLOOD ORDERABLES Final Result [facility] [address] [facility] Department [place] [address] * Blood culture Blood (10/23/2024 10:26 AM CDT) Report Final Report: No growth Comment:Testing performed by : [facility], [address] [facility], [place]., [address] Blood 10/23/2024 10:2 6 AM CDT 10/23/2024 [...] performance characteristics have been verified by the [facility] Microbiology Laboratory. For questions about this culture, contact the Microbiology Laboratory at [phone]. Interpretive data was last revised on 24. Milana Maloney MD LAB MICROBIOLOGY - GENERAL ORDERABLES Final Result [facility] Department [place] [address] * (ABNORMAL) eGFR (10/23/2024 4:53 AM CDT) [...] NP LAB BLOOD ORDERABLES Fi nal Result [facility] [address] [facility] Department [place] [address] * (ABNORMAL) Differential, auto (10/23/2024 4:53 AM CDT) Neutrophil abs 32.2(H) 1.5 - 6.5 K/cumm Imm gran abs 4.2(H) 0.0 - 0.1 K/cumm [facility] Lymphocyte abs 1.6 0.8 - 3.3 K/cumm [facility] Monocyte abs 1.0(H) 0.2 - 0.8 K/cumm [facility] Eosinophil abs 0.0 0.0 - 0.5 K/cumm [facility] Basophil abs 0.0 0.0 - 0.1 K/cumm [facility] Neutrophil pct 82.4 % [facility] Comment: Interpretive Data Percent cell count reference ranges are not reported, since discordance with absolute values may lead to misinterpretation of CBC data. Current Interpretive Data was last revised on 2017. Imm gran pct 10.8 % [facility] Comment: Interpretive Data Percent cell count reference ranges are not reported, since discordance with absolute values may lead to misinterpretation of CBC data. Current Interpretive Data was last revised on 2017. Lymphocyte pct 4.2 % [facility] Comment: Interpretive Data Percent cell count reference ranges are not reported, since discordance with absolute values may lead to misinterpretation of CBC data. Current Interpretive Data was last revised on 2017. Monocyte pct 2.6 % [facility] Comment: Interpretive Data Percent cell count reference ranges are not reported, since discordance with absolute values may lead to misinterpretation of CBC data. Current Interpretive Data was last revised on 2017. Eosinophil pct 0.0 % [facility] Comment: Interpretive Data Percent cell count reference ranges are not reported, since discordance with absolute values may lead to misinterpretation of CBC data. Current Interpretive Data was last revised on 2017. Basophil pct 0.0 % [facility] Comment: Interpretive Data Percent cell count reference ranges are not reported, since discordance with absolute values may lead to misinterpretation of CBC data. Current Interpretive Data was last revised on 2017. Blood 10/23/2024 4:53 AM CDT 10/23/2024 5:05 AM CDT us Matteo Julian MD LAB BLOOD ORDERABLES Cherise l Result Performing Organization Address [facility] [place] [facility] Co de Phone Number [facility] [address] [place] [address] * Heparin anti factor Xa activity (10/23/2024 [...] ORDERABLES Fi nal Result Performing Organization Address [facility] [place] [facility]/ZIP Co de Phone Number YUNIOR[address] [place] [address] * (ABNORMAL) CBC with auto differential (10/23/2024 4:53 AM CDT) [facility] WBC 39.1(H) 3.8 - 9.9 K/cumm Hgb 9.5(L) 13.0 - 17.5 g/dL [facility] Hct 29.5(L) 38.9 - 50.3 % [facility] Plt 436(H) 150 - 400 K/cumm [facility] MPV 9.3 9.1 - 12.3 fL [facility] RBC 3.20(L) 4.30 - 5.80 M/cumm [facility] MCV 92.2 81.3 - 96.4 fL [facility] MCH 29.7 27.1 - 33.3 pg [facility] MCHC 32.2(L) 32.3 - 35.7 g/dL [facility] RDW CV 15.2(H) 11.1 - 14.9 % [facility] RDW SD 50.6(H) 35.7 - 48.1 fL [facility] NRBC abs 0.05(H) 0.00 - 0.01 K/cumm [facility] Blood 10/23/2024 4:53 AM CDT 10/23/2024 5:05 AM CDT us Barbara Collins MD LAB BLO OD ORDERABLES Edited Result - Final Performing Organization Address City/[facility]/ZIP Co de Phone Number [address] [place] [address] * Manual Differential (10/23/2024 4:53 AM CDT) [facility] Differential Auto RBC morphology Consistent with RBC Indicies [facility] Platelet estimate Automated Count Confirmed [facility] Blood 10/23/2024 4:53 AM CDT 10/23/2024 5:05 AM CDT us Matteo Julian MD LAB BLOOD ORDERABLES Cherise l Result [facility] [address] [address] * (ABNORMAL) Phosphorus (10/23/2024 4:53 AM CDT) [facility] Phosphorus, pl 5.0(H) 2.3 - 4.5 mg/dL Blood 10/23/2024 4:53 AM CDT 10/23/2024 5:05 AM CDT Orlando Mclean [employer] LAB BLOOD ORDERABLES Fi nal Result Performing Organization Address [facility] [place] [facility]/ZIP Co de Phone Number [address] [address] * Magnesium (10/23/2024 4:53 AM CDT) [facility] Magnesium 1.9 1.4 - 2.5 mg/dL Blood 10/23/2024 4:53 AM CDT 10/23/2024 5:05 AM CDT Orlando Mclean [employer] LAB BLOOD ORDERABLES Fi nal Result Performing Organization Address [facility] [place] [facility] Co de Phone Number [address] [address] * (ABNORMAL) Comprehensive metabolic panel (10/23/2024 4:53 AM CDT) [facility] Sodium 140 135 - 145 mmol/L Potassium, pl 4.5 3.3 - 4.9 mmol/L [facility] Chloride 100 97 - 110 mmol/L [facility] CO2 24 22 - 32 mmol/L [facility] Anion gap 16(H) 2 - 15 mmol/L [facility] BUN 80(H) 6 - 25 mg/dL [facility] Creatinine 5.27(H) 0.80 - 1.30 mg/dL [facility] Glucose 140 70 - 199 mg/dL [facility] Comment: Interpretive Data Fasting glucose >/= [...] Calcium 8.5 8.5 - 10.3 mg/dL [facility] Bilirubin, total 0.3 0.1 - 1.2 mg/dL [facility] Protein, pl 5.8(L) 6.5 - 8.5 g/dL [facility] Albumin 3.0(L) 3.5 - 5.0 g/dL [facility] Alk phos 78 40 - 130 Units/L [facility] ALT 57(H) 7 - 55 Units/L [facility] AST 33 10 - 50 Units/L [facility] Blood 10/23/2024 4:53 AM CDT 10/23/2024 5:05 AM CDT Orlando Mclean NP LAB BLOOD ORDERABLES nal Result [facility] [address] [facility] Department [place] [address] * US Vein Mapping Duplex Upper Extremity Bilateral (10/22/2024 5:21 PM CDT) Anatomical Region Laterality Modality Vascular Bilateral Ultrasound 10/22/2024 4:17 PM CDT Narrative 10/25/2024 11:32 AM CDT Upper Extremity Vein Mapping Report Patient Name: LAMIN BETTS Account #: : [id number] ([id number]) Gender: M Study Date: 10/22/2024 04:17:45 PM Accession #: Technical Writing Lead/Mgr: Yocasta Hebert Quality: Adequate Ref Provider: PROCEDURES: [...] Study Date: 10/22/2024 04:17:45 PM Accession #: Technical Writing Lead/Mgr: Yocasta Hebert Quality: Adequate Ref Provider: PROCEDURES: [...] Thomas Simons M.D. RW T: Report ID: [id number] Reading Location: [id number] Procedure Note Thomas Simons MD - 10/22/2024 [...] Thomas Simons M.D. RW T: Report ID: [id number] Reading Location: [place] [address] Orlando Mclean NP IMG XR PROCEDURES Final Result * Critical Care (10/22/2024 3:18 PM CDT) Narrative Ricardo Hu MD - 10/22/2024 3:18 PM CDT Ricardo Hu MD 10/23/2024 9:59 AM Critical Care Performed by: Orlando Mclean NP Authorized by: Orlando Mclean NP CRITICAL CARE: Team: [facility] Shift: AM Level of Billing: Critical [...] plan with the ICU team and other medical/business system consultant staff, making frequent assessments and decisions [...] IN CLINIC/BEDSIDE ORDER SARAH Final Result * DC INSJ NON-TUNNELED CENTRAL VENOUS CATH AGE 5 YR/> (10/22/2024 3:15 PM CDT) Narrative Ricardo Hu MD - 10/22/2024 3:15 PM CDT Ricardo Hu MD 10/23/2024 9:59 AM Central Line Insertion Date/Time: 10/22/2024 3:15 PM Performed by: Orlando Mclean NP Authorized by: Ricardo Hu MD Wayne Protocol: RN Notified of Procedure: yes Informed [...] Catheter type: Dialysis catheter Catheter size: 13 arabic. Needle inserted, vein idenitified then guidewire inserted [...] by Orlando Doherty M.D. T: Report ID: [id number] Reading Location: [id number] Procedure Note Orlando Doherty, DO - 10/22/2024 [...] by Orlando Doherty M.D. T: Report ID: [id number] Reading Location: [id number] us Milana Maloney MD IMG XR PROCEDURES F inal Result * (ABNORMAL) BUN (10/22/2024 11:48 AM CDT) BUN 100(H) 6 - 25 mg/dL Blood 10/22/2024 11:4 8 AM CDT 10/22/2024 12:38 PM CDT Narrative [facility] - 10/22/2024 1:07 PM CDT Pre-Dialysis us Uday Jones MD LAB BLOOD ORDERABLES Final Result [facility] [address] [facility] Department [place] [address] * (ABNORMAL) eGFR (10/22/2024 6:32 [...] MD LAB BLOOD ORDERABLES Final Result [facility] [address] [facility] Department [place] [address] * Heparin anti factor Xa activity (10/22/2024 6:32 AM CDT) Anti Factor Xa <0.10 IUnits/mL Comment: Patient not on heparin at time of collection per [id number] (RN). 10/22/24 at 0845 by [id number]. Interpretive Data Enoxaparin therapeutic range (peak): VTE [...] ORDERABLES Cherise l Result Performing Organization Address City/[facility]/ZIP Co de Phone Number [facility] [address] [place] [address] * (ABNORMAL) CBC with auto differential (10/22/2024 6:32 AM CDT) Pathologist [facility] WBC 36.2(H) 3.8 - 9.9 K/cumm Hgb 10.5(L) 13.0 - 17.5 g/dL [facility] Hct 34.0(L) 38.9 - 50.3 % [facility] Plt 514(H) 150 - 400 K/cumm [facility] MPV 9.4 9.1 - 12.3 fL [facility] RBC 3.63(L) 4.30 - 5.80 M/cumm [facility] MCV 93.7 81.3 - 96.4 fL [facility] MCH 28.9 27.1 - 33.3 pg [facility] MCHC 30.9(L) 32.3 - 35.7 g/dL [facility] RDW CV 15.3(H) 11.1 - 14.9 % [facility] RDW SD 52.9(H) 35.7 - 48.1 fL [facility] NRBC abs 0.16(H) 0.00 - 0.01 K/cumm [facility] Blood 10/22/2024 6:32 AM CDT 10/22/2024 7:06 AM CDT Barbara Collins MD LAB BLO OD ORDERABLES Edited Result - Final [facility] [address] [employer] [place], [place] [id number] * (ABNORMAL) Manual Differential (10/22/2024 6:32 AM CDT) Differential Manual Cells Counted 100 [facility] Neutrophil abs 29.7(H) 1.5 - 6.5 K/cumm [facility] Imm gran abs 4.0(H) 0.0 - 0.1 K/cumm [facility] Lymphocyte abs 2.5 0.8 - 3.3 K/cumm [facility] Monocyte abs 0.0(L) 0.2 - 0.8 K/cumm [facility] Neutrophil pct 82.0 % [facility] Comment: Interpretive Data Percent cell count reference ranges are not reported, since discordance with absolute values may lead to misinterpretation of CBC data. Current Interpretive Data was last revised on 2017. Lymphocyte pct 4.0 % [facility] Comment: Interpretive Data Percent cell count reference ranges are not reported, since discordance with absolute values may lead to misinterpretation of CBC data. Current Interpretive Data was last revised on 2017. Metamyelocyte pct 11.0(H) 0.0 - 0.0 % [facility] Variant lymph pct 3.0(H) 0.0 - 0.0 % [facility] RBC morphology Present(A) [facility] Hypochromasia 8-15/HPF(A) [facility] Anisocytosis Slight(A) [facility] Microcytes 8-15/HPF(A) [facility] Elliptocytes 3-7/HPF(A) [facility] Platelet estimate Automated Count Confirmed [facility] Blood 10/22/2024 6:32 AM CDT 10/22/2024 7:06 AM CDT us Matteo Julian MD LAB BLOOD ORDERABLES Cherise l Result [facility] [address] [facility] Department [place] [address] * (ABNORMAL) Basic metabolic panel (10/22/2024 6:32 AM CDT) Sodium 141 135 - 145 mmol/L Potassium, pl 4.4 3.3 - 4.9 mmol/L [facility] Chloride 98 97 - 110 mmol/L [facility] CO2 25 22 - 32 mmol/L [facility] Anion gap 18(H) 2 - 15 mmol/L [facility] BUN 110(H) 6 - 25 mg/dL [facility] Creatinine 6.30(H) 0.80 - 1.30 mg/dL [facility] Glucose 164 70 - 199 mg/dL [facility] Comment: Interpretive Data Fasting glucose >/= [...] Calcium 9.3 8.5 - 10.3 mg/dL [facility] Blood 10/22/2024 6:32 AM CDT 10/22/2024 7:06 AM CDT Uday Jones MD LAB BLOOD ORDERABLES Final Result [facility] [address] [facility] Department [place] [address] * ECG 12 lead (10/22/2024 12:45 AM CDT) Ventricular Rate EKG/Min 76 BPM [facility] QRS-Interval (MSEC) 158 ms [facility] QT-Interval (MSEC) 450 ms [facility] QTc 506 ms [facility] R [place] -80 degrees [facility] T [place] 86 degrees [facility] Diagnosis Atrial fibrillation Right bundle branch block Left anterior fascicular block Bifascicular block Abnormal ECG When compared with ECG of 19-OCT-2024 12:28, Vent. rate has decreased BY 46 BPM Right bundle branch block has replaced Non-specific intra-ventricul ar conduction block Confirmed by ASHLEY WYNNE M.D. ([id number]) on 10/23/2024 9:23:45 AM [facility] 10/22/2024 12:4 5 AM CDT 10/23/2024 9:23 AM CDT Michael Tabernero Rufin [employer] ECG ORDERABLES Final Re sult [facility] * (ABNORMAL) Lipid panel (10/21/2024 6:34 PM [...] 3. Zia Vela et al. [place] Cardiol. 2020 December 01;5(5):540-548. doi: [...] BLOOD ORDERABLE S Final Result [facility] [address] [facility] Department [place] [address] * INSERT TUNNELED CV CATH W/PORT OR PUMP >[id number] (10/21/2024 10:01 AM CDT) Anatomical Region Laterality [...] MD LAB BLOOD ORDERABLES Cherise l Result [facility] [address] [facility] Department [place] [address] * Heparin anti factor Xa [...] MD LAB BLOOD ORDERABLES Cherise still Result [place] [id number] [facility] Department [place] [address] * (ABNORMAL) CBC with auto differential (10/21/2024 6:44 AM CDT) WBC 32.5(H) 3.8 - 9.9 K/cumm Hgb 9.6(L) 13.0 - 17.5 g/dL [facility] Hct 29.3(L) 38.9 - 50.3 % [facility] Plt 461(H) 150 - 400 K/cumm [facility] MPV 9.3 9.1 - 12.3 fL [facility] RBC 3.28(L) 4.30 - 5.80 M/cumm [facility] MCV 89.3 81.3 - 96.4 fL [facility] MCH 29.3 27.1 - 33.3 pg [facility] MCHC 32.8 32.3 - 35.7 g/dL [facility] RDW CV 15.0(H) 11.1 - 14.9 % [facility] RDW SD 49.5(H) 35.7 - 48.1 fL [facility] NRBC abs 0.10(H) 0.00 - 0.01 K/cumm [facility] Blood 10/21/2024 6:44 AM CDT 10/21/2024 7:06 AM CDT Barbara Collins MD LAB BLO OD ORDERABLES Edited Result - Final [facility] [address] [facility] Department of Laboratories [place], [place] [id number] * (ABNORMAL) Manual Differential (10/21/2024 6:44 AM CDT) Differential Manual Cells Counted 100 [facility] Neutrophil abs 26.3(H) 1.5 - 6.5 K/cumm [facility] Imm gran abs 1.6(H) 0.0 - 0.1 K/cumm [facility] Lymphocyte abs 3.2 0.8 - 3.3 K/cumm [facility] Monocyte abs 1.3(H) 0.2 - 0.8 K/cumm [facility] Neutrophil pct 81.0 % [facility] Comment: Interpretive Data Percent cell count reference ranges are not reported, since discordance with absolute values may lead to misinterpretation of CBC data. Current Interpretive Data was last revised on 2017. Lymphocyte pct 10.0 % [facility] Comment: Interpretive Data Percent cell count reference ranges are not reported, since discordance with absolute values may lead to misinterpretation of CBC data. Current Interpretive Data was last revised on 2017. Monocyte pct 4.0 % [facility] Comment: Interpretive Data Percent cell count reference ranges are not reported, since discordance with absolute values may lead to misinterpretation of CBC data. Current Interpretive Data was last revised on 2017. Metamyelocyte pct 2.0(H) 0.0 - 0.0 % [facility] Myelocyte pct 3.0(H) 0.0 - 0.0 % [facility] RBC morphology Consistent with RBC Indicies [facility] Platelet estimate Automated Count Confirmed [facility] Blood 10/21/2024 6:44 AM CDT 10/21/2024 7:06 AM CDT Matteo Julian MD LAB BLOOD ORDERABLES Cherise still Result [facility] [address] [facility] Department [place] [address] * (ABNORMAL) Comprehensive metabolic panel (10/21/2024 6:44 AM CDT) Sodium 143 135 - 145 mmol/L Potassium, pl 4.4 3.3 - 4.9 mmol/L [facility] Chloride 100 97 - 110 mmol/L [facility] CO2 23 22 - 32 mmol/L [facility] Anion gap 20(H) 2 - 15 mmol/L [facility] BUN 122(H) 6 - 25 mg/dL [facility] Creatinine 6.64(H) 0.80 - 1.30 mg/dL [facility] Glucose 102 70 - 199 mg/dL [facility] Comment: Interpretive Data Fasting glucose >/= [...] Calcium 9.4 8.5 - 10.3 mg/dL [facility] Bilirubin, total 0.2 0.1 - 1.2 mg/dL [facility] Protein, pl 6.2(L) 6.5 - 8.5 g/dL [facility] Albumin 3.3(L) 3.5 - 5.0 g/dL [facility] Alk phos 103 40 - 130 Units/L [facility] ALT 143(H) 7 - 55 Units/L [facility] AST 112(H) 10 - 50 Units/L [facility] Blood 10/21/2024 6:44 AM CDT 10/21/2024 7:11 AM CDT us Matteo Julian MD LAB BLOOD ORDERABLES Cherise l Result Performing Organization Address [facility] Co de Phone Number [address] [address] * (ABNORMAL) eGFR (10/20/2024 2:38 PM CDT) [...] performed by: [facility], [address] [place] [address]., [address] Blood 10/20/2024 2:38 PM CDT 10/20/2024 2:57 PM CDT us August Roger MD LAB BLOOD ORDERABLES Fi nal Result Performing Organization Address City/[facility]/ZIP Co de Phone Number [address] [place] [address] * (ABNORMAL) Protime-INR (10/20/2024 2:38 PM CDT) PT 16.1(H) 12.0 - 14.6 sec Comment: Ref Range High Testing performed by: [address] [address] INR 1.3(H) 0.9 - 1.2 [facility] Comment: Ref Range High Interpretive data Oral anticoagulant therapeutic ranges: Venous thromboembolism prophylaxis or treatment: 2.0-3.0 CARDIOLOGY Standard range: 2.0-3.0 High-intensity range: 2.5-3.5 Refer to indication-specific guidelines for appropriate target ranges for prosthetic heart valve replacement. Current interpretive data was last revised on 2019. Testing performed by: [address] [address] Blood 10/20/2024 2:38 PM CDT 10/20/2024 2:57 PM CDT Narrative [facility] - 10/20/2024 3:12 PM CDT Baseline prior to apixaban initiation. August Roger MD LAB BLOOD ORDERABLES nal Result Performing Organization Address [facility] Co de Phone Number [address] [place] [address] * (ABNORMAL) Creatinine (10/20/2024 2:38 PM CDT) Creatinine 6.56(H) 0.80 - 1.30 mg/dL Comment:Testing performed by : [address] [address] Blood 10/20/2024 2:38 PM CDT 10/20/2024 2:57 PM CDT Narrative [facility] - 10/20/2024 3:26 PM CDT Baseline prior to apixaban initiation. August Roger MD LAB BLOOD ORDERABLES nal Result Performing Organization Address City/[facility]/ZIP Co de Phone Number [address] [place] [address] * (ABNORMAL) Hepatic function panel (10/20/2024 2:38 PM CDT) [facility] Bilirubin, total 0.2 0.1 - 1.2 mg/dL Comment:Testing performed by : [address] [address] Bilirubin, direct <0.2 0.1 - 0.3 mg/dL [facility] Comment:Testing performed by : [address] [address] Protein, pl 7.0 6.5 - 8.5 g/dL [facility] Comment:Testing performed by : [address] [address] Albumin 3.5 3.5 - 5.0 g/dL [facility] Comment:Testing performed by : [address] [address] Alk phos 116 40 - 130 Units/L [facility] Comment:Testing performed by : [address] [address] ALT 119(H) 7 - 55 Units/L [facility] Comment:Testing performed by : [address] [address] AST 95(H) 10 - 50 Units/L [facility] Comment:Testing performed by : [address] [address] Blood 10/20/2024 2:38 PM CDT 10/20/2024 2:57 PM CDT Narrative [facility] - 10/20/2024 3:26 PM CDT Baseline prior to apixaban initiation. us August Roger MD LAB BLOOD ORDERABLES nal Result [facility] [address] [facility] Department [place] [address] * Hepatitis panel, acute Blood (10/20/2024 12:31 PM CDT) [facility] Hep A IgM Nonreactive Nonreactive Comment: Interpretive Data: If Hep A IgM Ab is reported as Equivocal, a new sample should be drawn in two weeks for testing. Current interpretive data was last revised on 19. Hep B core IgM Nonreactive Nonreactive [facility] Comment: Interpretive Data If HepB Core IgM Ab is reported as Equivocal, a new sample should be drawn in two weeks for testing. Current interpretive data was last revised on 19. Hep C Ab Nonreactive Nonreactive [facility] Comment: Antibodies to HCV not detected. [...] revised on 2019. HepBsAg Nonreactive Nonreactive [facility] Blood 10/20/2024 12:3 1 PM CDT 10/20/2024 2:31 PM CDT Carmen Walter MD LAB MICROBIOLOGY - [facility] AL ORDERABLES Final Result [facility] [address] [facility] Department [place] [address] * Hepatitis B surface antibody [...] AL ORDERABLES Final Result Performing Organization Address City/[facility]/ZIP Co de Phone Number [facility] [place] [address] * Heparin anti factor Xa activity (10/20/2024 [...] performed by: [facility], [address] [place] [address]., [address] Blood 10/20/2024 9:04 AM CDT 10/20/2024 9:08 AM CDT us Matteo Julian MD LAB BLOOD ORDERABLES Cherise l Result [place] [address] [facility] [employer] [place], [place] [id number] * CT Chest WO Contrast (10/20/2024 6:34 [...] Winston Kinney M.D. RB: SABINO Report ID: [id number] Reading Location: [id number] Procedure Note Winston Kinney MD - 10/20/2024 [...] Winston Kinney M.D. RB: SABINO Report ID: [id number] Reading Location: [place] [address] us Rigoberto Croft MD IMG CT PROCEDURES [...] performed by: [facility], [address] [place] [address]., [address] Blood 10/20/2024 3:52 AM CDT 10/20/2024 4:31 AM CDT us Matteo Julian MD LAB BLOOD ORDERABLES Cherise l Result [facility] [address] [facility] Department [place] [address] * (ABNORMAL) Differential, auto (10/20/2024 3:52 AM CDT) [facility] Neutrophil abs 21.5(H) 1.5 - 6.5 K/cumm Comment:Testing performed by : [address] [address] Imm gran abs 2.0(H) 0.0 - 0.1 K/cumm [facility] Comment:Testing performed by : [address] [address] Lymphocyte abs 1.3 0.8 - 3.3 K/cumm [facility] Comment:Testing performed by : [address], [place]., [address] Monocyte abs 0.8 0.2 - 0.8 K/cumm [facility] Comment:Testing performed by : [address] [address] Eosinophil abs 0.1 0.0 - 0.5 K/cumm [facility] Comment:Testing performed by : [address] [address] Basophil abs 0.2(H) 0.0 - 0.1 K/cumm [facility] Comment:Testing performed by : [address] [address] Neutrophil pct 83.3 % [facility] Comment: Interpretive Data Percent cell count reference ranges are not reported, since discordance with absolute values may lead to misinterpretation of CBC data. Current Interpretive Data was last revised on 2017. Testing performed by: [address] [address] Imm gran pct 7.7 % [facility] Comment: Interpretive Data Percent cell count reference ranges are not reported, since discordance with absolute values may lead to misinterpretation of CBC data. Current Interpretive Data was last revised on 2017. Testing performed by: [address] [address] Lymphocyte pct 5.1 % [facility] Comment: Interpretive Data Percent cell count reference ranges are not reported, since discordance with absolute values may lead to misinterpretation of CBC data. Current Interpretive Data was last revised on 2017. Testing performed by: [address] [address] Monocyte pct 3.0 % [facility] Comment: Interpretive Data Percent cell count reference ranges are not reported, since discordance with absolute values may lead to misinterpretation of CBC data. Current Interpretive Data was last revised on 2017. Testing performed by: [address] [address] Eosinophil pct 0.2 % [facility] Comment: Interpretive Data Percent cell count reference ranges are not reported, since discordance with absolute values may lead to misinterpretation of CBC data. Current Interpretive Data was last revised on 2017. Testing performed by: [address] [address] Basophil pct 0.7 % [facility] Comment: Interpretive Data Percent cell count reference ranges are not reported, since discordance with absolute values may lead to misinterpretation of CBC data. Current Interpretive Data was last revised on 2017. Testing performed by: [address] [address] Blood 10/20/2024 3:52 AM CDT 10/20/2024 4:33 AM CDT Honorio Mosqueda NP LAB BLOOD ORDERABLES Final Result [facility] [address] [facility] Department [place] [address] * Heparin anti factor Xa activity (10/20/2024 3:52 AM CDT) [facility] Anti Factor Xa 0.42 IUnits/mL Comment: Interpretive [...] last revised on 2019. Testing performed by: [address] [address] Blood 10/20/2024 3:52 AM CDT 10/20/2024 4:34 AM CDT us aMtteo Julian MD LAB BLOOD ORDERABLES Cherise still Result [facility] Department of Laboratories [place], [place] [id number] * (ABNORMAL) CBC with auto differential (10/20/2024 3:52 AM CDT) [facility] WBC 25.8(H) 3.8 - 9.9 K/cumm Comment:Testing performed by : [address] [address] Hgb 9.4(L) 13.0 - 17.5 g/dL [facility] Comment:Testing performed by : [address] [address] Hct 29.0(L) 38.9 - 50.3 % [facility] Comment:Testing performed by : [address] [address] Plt 429(H) 150 - 400 K/cumm [facility] Comment:Testing performed by : [address] [address] MPV 9.4 9.1 - 12.3 fL [facility] Comment:Testing performed by : [address] [address] RBC 3.15(L) 4.30 - 5.80 M/cumm [facility] Comment:Testing performed by : [address] [address] MCV 92.1 81.3 - 96.4 fL [facility] Comment:Testing performed by : [address] [address] MCH 29.8 27.1 - 33.3 pg [facility] Comment:Testing performed by : [address] [address] MCHC 32.4 32.3 - 35.7 g/dL [facility] Comment:Testing performed by : [address] [address] RDW CV 15.2(H) 11.1 - 14.9 % [facility] Comment:Testing performed by : [address] [address] RDW SD 50.7(H) 35.7 - 48.1 fL [facility] Comment:Testing performed by : [address] [address] NRBC abs 0.04(H) 0.00 - 0.01 K/cumm [facility] Comment:Testing performed by : [address] [address] Blood 10/20/2024 3:52 AM CDT 10/20/2024 4:33 AM CDT Barbara Collins MD LAB BLO OD ORDERABLES Final Result [facility] [address] [facility] Department of Laboratories [place], [place] [id number] * (ABNORMAL) CRP (acute phase) (10/20/2024 3:52 AM CDT) CRP 225.0(H) <=10.0 mg/L Comment:Testing performed by : [address] [address] Blood 10/20/2024 3:52 AM CDT 10/20/2024 4:31 AM CDT us Rigoberto Croft MD LAB BLOOD ORDERABLES F inal Result [facility] [address] [facility] Department [place] [address] * (ABNORMAL) Comprehensive metabolic panel (10/20/2024 3:52 AM CDT) Sodium 139 135 - 145 mmol/L Comment:Testing performed by : [address] [address] Potassium, pl 4.0 3.3 - 4.9 mmol/L [facility] Comment:Testing performed by : [address] [address] Chloride 98 97 - 110 mmol/L [facility] Comment:Testing performed by : [address] [address] CO2 22 22 - 32 mmol/L [facility] Comment:Testing performed by : [address] [address] Anion gap 19(H) 2 - 15 mmol/L [facility] Comment:Testing performed by : [address] [address] BUN 105(H) 6 - 25 mg/dL [facility] Comment:Testing performed by : [address] [address] Creatinine 6.35(H) 0.80 - 1.30 mg/dL [facility] Comment:Testing performed by : [address] [address] Glucose 172 70 - 199 mg/dL [facility] [...] performed by: [facility], [address] [place] [address]., [address] Calcium 10.1 8.5 - 10.3 mg/dL [facility] Comment:Testing performed by : [address] [address] Bilirubin, total 0.2 0.1 - 1.2 mg/dL [facility] Comment:Testing performed by : [address] [address] Protein, pl 6.6 6.5 - 8.5 g/dL [facility] Comment:Testing performed by : [address] [address] Albumin 3.2(L) 3.5 - 5.0 g/dL [facility] Comment:Testing performed by : [address] [address] Alk phos 132(H) 40 - 130 Units/L [facility] Comment:Testing performed by : [address] [address] ALT 91(H) 7 - 55 Units/L [facility] Comment:Testing performed by : [address] [address] AST 105(H) 10 - 50 Units/L [facility] Comment:Testing performed by : [address] [address] Blood 10/20/2024 3:52 AM CDT 10/20/2024 4:31 AM CDT us Matteo Julian MD LAB BLOOD ORDERABLES Cherise l Result [facility] [address] [facility] Department [place] [address] * Heparin anti factor Xa [...] performed by: [facility], [address] [place] [address]., [address] Blood 10/19/2024 7:33 PM CDT 10/19/2024 7:50 PM CDT us Matteo Julian MD LAB BLOOD ORDERABLES Cherise still Result [facility] [address] [facility] Department [place] [address] * Heparin anti factor Xa activity (10/19/2024 12:50 PM CDT) [facility] Signature Anti Factor Xa <0.10 IUnits/mL [...] last revised on 2019. Testing performed by: [address] [address] Blood 10/19/2024 12:5 0 PM CDT 10/19/2024 1:08 PM CDT Narrative [facility] - 10/19/2024 1:55 PM CDT Baseline prior to heparin initiation Matteo Julian MD LAB BLOOD ORDERABLES Cherise l Result [facility] [address] [facility] Department [place] [address] * (ABNORMAL) Protime-INR (10/19/2024 12:50 PM CDT) PT 15.6(H) 12.0 - 14.6 sec Comment: Ref Range High Testing performed by: [address] [address] INR 1.3(H) 0.9 - 1.2 [facility] Comment: Ref Range High Interpretive data Oral anticoagulant therapeutic ranges: Venous thromboembolism prophylaxis or treatment: 2.0-3.0 CARDIOLOGY Standard range: 2.0-3.0 High-intensity range: 2.5-3.5 Refer to indication-specific guidelines for appropriate target ranges for prosthetic heart valve replacement. Current interpretive data was last revised on 2019. Testing performed by: [address] [address] Blood 10/19/2024 12:5 0 PM CDT 10/19/2024 1:07 PM CDT Narrative [facility] - 10/19/2024 1:27 PM CDT Baseline prior to heparin initiation us Matteo Julian MD LAB BLOOD ORDERABLES Cherise l Result [facility] [address] [facility] Department [place] [address] * ECG 12 lead (10/19/2024 12:28 PM CDT) Ventricular Rate EKG/Min 122 BPM [facility] Atrial Rate 133 BPM [facility] QRS-Interval (MSEC) 156 ms [facility] QT-Interval (MSEC) 372 ms [facility] QTc 530 ms [facility] R [place] 270 degrees [facility] T [place] 75 degrees [facility] Diagnosis Atrial fibrillation with rapid ventricular response Left axis deviation Non-specific intra-ventricul ar conduction block Abnormal ECG Confirmed by LANDEN SEARS M.D. ([id number]) on 10/19/2024 4:58:38 PM [facility] 10/19/2024 12:2 8 PM CDT 10/19/2024 4:58 PM CDT Matteo Julian MD ECG ORDERABLES Final Res ult Performing Organization Address [facility]/ZIP Co de Phone Number [facility] * XR Chest 1 View (10/19/2024 8:40 [...] Jonathan Oneill M.D. KR: KEL Report ID: [id number] Reading Location: [place] [address] Procedure Note Jonathan Oneill MD - 10/19/2024 [...] Jonathan Oneill M.D. KR: KEL Report ID: [id number] Reading Location: [place] [address] Rigoberto Croft MD IMG XR PROCEDURES [facility] [...] was last reviewed 2021. Testing performed by: [address] [address] Blood 10/19/2024 4:05 AM CDT 10/19/2024 4:39 AM CDT us Matteo Julian MD LAB BLOOD ORDERABLES Cherise still Result [facility] [address] [facility] Department [place] [address] * (ABNORMAL) Differential, auto (10/19/2024 4:05 AM CDT) Neutrophil abs 18.8(H) 1.5 - 6.5 K/cumm Comment:Testing performed by : [address] [address] Imm gran abs 1.0(H) 0.0 - 0.1 K/cumm [facility] Comment:Testing performed by : [address] [address] Lymphocyte abs 0.9 0.8 - 3.3 K/cumm [facility] Comment:Testing performed by : [address] [address] Monocyte abs 0.8 0.2 - 0.8 K/cumm [facility] Comment:Testing performed by : [address] [address] Eosinophil abs 0.0 0.0 - 0.5 K/cumm [facility] Comment:Testing performed by : [address] [address] Basophil abs 0.1 0.0 - 0.1 K/cumm [facility] Comment:Testing performed by : [address] [place] [address] Neutrophil pct 87.5 % [facility] Comment: Interpretive Data Percent cell count reference ranges are not reported, since discordance with absolute values may lead to misinterpretation of CBC data. Current Interpretive Data was last revised on 2017. Testing performed by: [address] [address] Imm gran pct 4.5 % [facility] Comment: Interpretive Data Percent cell count reference ranges are not reported, since discordance with absolute values may lead to misinterpretation of CBC data. Current Interpretive Data was last revised on 2017. Testing performed by: [address] [address] Lymphocyte pct 4.0 % [facility] Comment: Interpretive Data Percent cell count reference ranges are not reported, since discordance with absolute values may lead to misinterpretation of CBC data. Current Interpretive Data was last revised on 2017. Testing performed by: [address] [address] Monocyte pct 3.6 % [facility] Comment: Interpretive Data Percent cell count reference ranges are not reported, since discordance with absolute values may lead to misinterpretation of CBC data. Current Interpretive Data was last revised on 2017. Testing performed by: [address] [address] Eosinophil pct 0.1 % [facility] Comment: Interpretive Data Percent cell count reference ranges are not reported, since discordance with absolute values may lead to misinterpretation of CBC data. Current Interpretive Data was last revised on 2017. Testing performed by: [address] [address] Basophil pct 0.3 % [facility] Comment: Interpretive Data Percent cell count reference ranges are not reported, since discordance with absolute values may lead to misinterpretation of CBC data. Current Interpretive Data was last revised on 2017. Testing performed by: [address] [address] Blood 10/19/2024 4:05 AM CDT 10/19/2024 4:41 AM CDT us Honorio Mosqueda HIGH VALUE ASSOCIATE LAB BLOOD ORDERABLES Final Result Performing Organization Address City/[facility] Co de Phone Number [address] [place] [address] * (ABNORMAL) Thyroid Function Stanton (10/19/2024 4:05 AM CDT) Pathologist [facility] TSH 0.12(L) 0.30 - 4.20 mcIUnit/mL Comment:Testing performed by : [address] [address] Blood 10/19/2024 4:05 AM CDT 10/19/2024 4:39 AM CDT us Matteo Julian MD LAB BLOOD ORDERABLES Cherise l Result Performing Organization Address [facility] Co de Phone Number [address] [place] [address] * (ABNORMAL) CBC with auto differential (10/19/2024 4:05 AM CDT) [facility] WBC 21.5(H) 3.8 - 9.9 K/cumm Comment:Testing performed by : [address] [address] Hgb 9.7(L) 13.0 - 17.5 g/dL PAVEL ROSADO Comment:Testing performed by : [address] [address] Hct 29.8(L) 38.9 - 50.3 % PAVEL Comment:Testing performed by : [address] [address] Plt 419(H) 150 - 400 K/cumm PAVEL ROSADO Comment:Testing performed by : [address] [address] MPV 9.6 9.1 - 12.3 fL PAVEL ROSADO Comment:Testing performed by : [address] [address] RBC 3.25(L) 4.30 - 5.80 M/cumm PAVEL ROSADO Comment:Testing performed by : [facility], [address] [place] [address]., [address] MCV 91.7 81.3 - 96.4 fL PAVEL ROSADO Comment:Testing performed by : [facility], [address] [place] [address]., [address] MCH 29.8 27.1 - 33.3 pg PAVEL ROSADO Comment:Testing performed by : [address] [address] MCHC 32.6 32.3 - 35.7 g/dL PAVEL ROSADO Comment:Testing performed by : [address] [address] RDW CV 15.2(H) 11.1 - 14.9 % PAVEL Comment:Testing performed by : [address] [address] RDW SD 51.7(H) 35.7 - 48.1 fL PAVEL Comment:Testing performed by : [address] [address] NRBC abs 0.00 0.00 - 0.01 K/cumm PAVEL Comment:Testing performed by : [address] [address] Blood 10/19/2024 4:05 AM CDT 10/19/2024 4:41 AM CDT Barbara Collins MD LAB BLO OD ORDERABLES Final Result PAVEL [address] [facility] Department of Laboratories [place], [place] [id number] * (ABNORMAL) CRP (acute phase) (10/19/2024 4:05 AM CDT) CRP 476.0(H) <=10.0 mg/L Comment:Testing performed by : [address] [address] Blood 10/19/2024 4:05 AM CDT 10/19/2024 4:39 AM CDT Rigoberto Croft MD LAB BLOOD ORDERABLES F inal Result Performing Organization Address City/[facility]/ZIP Co de Phone Number [address] [address] * (ABNORMAL) T3, free (10/19/2024 4:05 AM CDT) Free T3 1.5(L) 2.0 - 4.4 pg/mL Blood 10/19/2024 4:05 AM CDT 10/19/2024 4:42 PM CDT Narrative [facility] 10/19/2024 5:11 PM CDT This test was reflexed from a T4 result. us Matteo Julian MD LAB BLOOD ORDERABLES Cherise l Result Performing Organization Address [facility] Co de Phone Number [address] [address] * T4, free (10/19/2024 4:05 AM CDT) Free T4 1.40 0.90 - 1.70 ng/dL Comment:Testing performed by : [facility], [address] [place] [address]., [address] Blood 10/19/2024 4:05 AM CDT 10/19/2024 4:39 AM CDT Narrative [facility] 10/19/2024 2:34 PM CDT This test was reflexed from a TSH result. us Matteo Julian MD LAB BLOOD ORDERABLES Cherise l Result Performing Organization Address City/[facility]/ZIP Co de Phone Number [address] [address] * (ABNORMAL) Comprehensive metabolic panel (10/19/2024 4:05 AM CDT) Sodium 139 135 - 145 mmol/L Comment:Testing performed by : [facility], [address] [place] [address], [place]., [address] Potassium, pl 4.5 3.3 - 4.9 mmol/L PAVEL Comment: Hemolyzed; Potassium value may be falsely elevated by as much as 1.0 mmol/L. Suggest redraw and reanalysis. Testing performed by: [address], [place]., [address] Chloride 100 97 - 110 mmol/L PAVEL Comment:Testing performed by : [facility], [address] [place] [address], [place]., [address] CO2 22 22 - 32 mmol/L [facility] Comment:Testing performed by : [address], [place]., [address] Anion gap 17(H) 2 - 15 mmol/L PAVEL Comment:Testing performed by : [address], [place]., [address] BUN 89(H) 6 - 25 mg/dL [facility] Comment:Testing performed by : [address], [place]., [address] Creatinine 5.77(H) 0.80 - 1.30 mg/dL [facility] Comment:Testing performed by : [address] [address] Glucose 196 70 - 199 mg/dL [facility] Comment: Interpretive Data Fasting glucose >/= [...] was last revised 2022. Testing performed by: [address], [place]., [address] Calcium 10.4(H) 8.5 - 10.3 mg/dL PAVEL Comment:Testing performed by : [address], [place]., [address] Bilirubin, total 0.2 0.1 - 1.2 mg/dL PAVEL Comment:Testing performed by : [address], [address] Protein, pl 7.1 6.5 - 8.5 g/dL PAVEL Comment:Testing performed by : [address] [address] Albumin 3.2(L) 3.5 - 5.0 g/dL PAVEL Comment:Testing performed by : [address], [address] Alk phos 102 40 - 130 Units/L PAVEL Comment:Testing performed by : [address], [address] ALT 31 7 - 55 Units/L PAVEL Comment:Testing performed by : [address], [address] AST 44 10 - 50 Units/L PAVEL Comment: Hemolyzed; result may be falsely elevated Testing performed by: [address], [address] Blood 10/19/2024 4:05 AM CDT 10/19/2024 4:39 AM CDT us Matteo Julian MD LAB BLOOD ORDERABLES Cherise l Result [facility] [address] [facility] Department [place] [address] * TRANSTHORACIC ECHO (TTE) COMPLETE W DOPPLER/CF W CONTRAST (10/18/2024 2:30 PM CDT) LV EF 30-35 % CONS SCIMAGE Anatomical Region Laterality Modality Ultrasound 10/18/2024 1:40 PM CDT Narrative 10/18/2024 6:15 PM CDT Transthoracic Echocardiographic Report Patient Name: LAMIN BETTS J : 1950 (74y 8m) Gender: M Study Date: 10/18/2024 01:40:19 PM Ht(Inch): 75 Wt(Lb): 267.99 BSA: 2.54 Technical Writing Lead/Mgr: Lily Alford RDCS Location: [id number] Order Provider: MOSQUEDAARABELLAGINO Heart Rate: 120 BMI: 33.49 BP: 121 / 94 Ref Provider: PANDAARABELLAGINO PROCEDURES: Echocardiographic Report: ([id number]) Transthoracic complete echo with contrast, 2D, spectral [...] AI Peak PG 70.00 mmHg AI Decel [place] 4.33 m/s2 AI PHT 284.00 ms MV [...] PM Ht(Inch): 75 Wt(Lb): 267.99 BSA: 2.54 Technical Writing Lead/Mgr: Lily Alford RDCS Location: [place] [address] Order Provider:HONORIO MOSQUEDA Heart Rate: 120 BMI: 33.49 BP: 121 / 94 Ref Provider: HONORIO MOSQUEDA PROCEDURES: Echocardiographic Report: ([id number]) Transthoracic complete echo withcontrast, 2D, spectral and [...] AI Peak PG 70.00 mmHg AI Decel [place] 4.33 m/s2 AI PHT 284.00 ms MV [...] 12 lead (10/18/2024 5:59 AM CDT) Pathologist [facility] Ventricular Rate EKG/Min 93 BPM [facility] Atrial Rate 93 BPM [facility] DC-Interval (MSEC) 208 ms [facility] QRS-Interval (MSEC) 162 ms [facility] QT-Interval (MSEC) 416 ms [facility] QTc 517 ms [facility] R [place] 257 degrees [facility] T [place] 92 degrees [facility] Diagnosis Sinus rhythm with occasional Premature ventricular complexes and Premature atrial complexes Right superior axis deviation Left bundle branch block Incomplete right bundle branch block Abnormal ECG When compared with ECG of 17-OCT-2024 13:15, Premature ventricular complexes are now Present Confirmed by SULTAN DREW M.D. ([id number]) on 10/18/2024 3:53:08 PM [facility] 10/18/2024 5:59 AM CDT 10/18/2024 3:53 PM CDT us Matteo Julian MD ECG ORDERABLES Final Res ult [facility] * (ABNORMAL) Differential, auto (10/18/2024 4:42 AM CDT) Neutrophil abs 12.6(H) 1.5 - 6.5 K/cumm Comment:Testing performed by : [facility], [address] [place] [address]., [address] Imm gran abs 0.1 0.0 - 0.1 K/cumm PAVEL Comment:Testing performed by : [facility], [address] [place] [address]., [address] Lymphocyte abs 0.4(L) 0.8 - 3.3 K/cumm PAVEL Comment:Testing performed by : [address] [address] Monocyte abs 0.5 0.2 - 0.8 K/cumm PAVEL Comment:Testing performed by : [address] [address] Eosinophil abs 0.0 0.0 - 0.5 K/cumm [facility] Comment:Testing performed by : [address] [address] Basophil abs 0.0 0.0 - 0.1 K/cumm [facility] Comment:Testing performed by : [address] [address] Neutrophil pct 92.4 % [facility] Comment: Interpretive Data Percent cell count reference ranges are not reported, since discordance with absolute values may lead to misinterpretation of CBC data. Current Interpretive Data was last revised on 2017. Testing performed by: [address] [address] Imm gran pct 0.8 % [facility] Comment: Interpretive Data Percent cell count reference ranges are not reported, since discordance with absolute values may lead to misinterpretation of CBC data. Current Interpretive Data was last revised on 2017. Testing performed by: [address] [address] Lymphocyte pct 3.2 % [facility] Comment: Interpretive Data Percent cell count reference ranges are not reported, since discordance with absolute values may lead to misinterpretation of CBC data. Current Interpretive Data was last revised on 2017. Testing performed by: [address] [address] Monocyte pct 3.5 % [facility] Comment: Interpretive Data Percent cell count reference ranges are not reported, since discordance with absolute values may lead to misinterpretation of CBC data. Current Interpretive Data was last revised on 2017. Testing performed by: [address] [place] [address] Eosinophil pct 0.0 % PAVEL Comment: Interpretive Data Percent cell count reference ranges are not reported, since discordance with absolute values may lead to misinterpretation of CBC data. Current Interpretive Data was last revised on 2017. Testing performed by: [address] [address] Basophil pct 0.1 % PAVEL Comment: Interpretive Data Percent cell count reference ranges are not reported, since discordance with absolute values may lead to misinterpretation of CBC data. Current Interpretive Data was last revised on 2017. Testing performed by: [address] [address] Blood 10/18/2024 4:42 AM CDT 10/18/2024 5:22 AM CDT Honorio Mosqueda HIGH VALUE ASSOCIATE LAB BLOOD ORDERABLES Final Result Performing Organization Address [facility] de Phone Number [place] [phone] [facility] [employer] [place], [place] [id number] * (ABNORMAL) Iron profile w/ IBC (10/18/2024 4:42 AM CDT) Iron 16(L) 50 - 150 mcg/dL Comment:Testing performed by : [address] [address] TIBC 177(L) 250 - 400 mcg/dL PAVEL Comment:Testing performed by : [address] [address] Transferrin saturation 9(L) 20 - 50 % PAVEL Comment:Testing performed by : [address] [address] Blood 10/18/2024 4:42 AM CDT 10/18/2024 5:18 AM CDT Honorio Mosqueda HIGH VALUE ASSOCIATE LAB BLOOD ORDERABLES Final Result Performing Organization Address [facility] de Phone Number [place] [phone] [facility] Department [place] [address] * (ABNORMAL) CBC with auto differential (10/18/2024 4:42 AM CDT) [facility] WBC 13.6(H) 3.8 - 9.9 K/cumm Comment:Testing performed by : [address] [address] Hgb 9.5(L) 13.0 - 17.5 g/dL PAVEL Comment:Testing performed by : [address] [address] Hct 30.5(L) 38.9 - 50.3 % PAVEL Comment:Testing performed by : [address] [address] Plt 342 150 - 400 K/cumm PAVEL Comment:Testing performed by : [address] [address] MPV 10.3 9.1 - 12.3 fL PAVEL Comment:Testing performed by : [address], [address] RBC 3.27(L) 4.30 - 5.80 M/cumm PAVEL Comment:Testing performed by : [address] [address] MCV 93.3 81.3 - 96.4 fL PAVEL Comment:Testing performed by : [address] [address] MCH 29.1 27.1 - 33.3 pg PAVEL Comment:Testing performed by : [address] [address] MCHC 31.1(L) 32.3 - 35.7 g/dL PAVEL Comment:Testing performed by : [address], [address] RDW CV 15.0(H) 11.1 - 14.9 % PAVEL Comment:Testing performed by : [address] [address] RDW SD 51.3(H) 35.7 - 48.1 fL PAVEL Comment:Testing performed by : [address] [address] NRBC abs 0.00 0.00 - 0.01 K/cumm PAVEL Comment:Testing performed by : [address] [address] Blood 10/18/2024 4:42 AM CDT 10/18/2024 5:22 AM CDT Barbara Colilns MD LAB BLO OD ORDERABLES Final Result [address] [place] [address] * Phosphorus (10/18/2024 4:42 AM CDT) Phosphorus, pl 3.1 2.3 - 4.5 mg/dL Comment:Testing performed by : [address] [address] Blood 10/18/2024 4:42 AM CDT 10/18/2024 5:18 AM CDT Honorio Mosqueda HIGH VALUE ASSOCIATE LAB BLOOD ORDERABLES Final Result Performing Organization Address City/[facility]/ZIP Co de Phone Number [address] [place] [place] [address] * Magnesium (10/18/2024 4:42 AM CDT) Magnesium 2.0 1.4 - 2.5 mg/dL Comment:Testing performed by : [address] [address] Blood 10/18/2024 4:42 AM CDT 10/18/2024 5:18 AM CDT Honorio Mosqueda HIGH VALUE ASSOCIATE LAB BLOOD ORDERABLES Final Result [address] [place] [address] * Ferritin (10/18/2024 4:42 AM CDT) Ferritin 353 30 - 400 ng/mL Comment:Testing performed by : [facility], [address] [place] [address]., [address] Blood 10/18/2024 4:42 AM CDT 10/18/2024 5:18 AM CDT Honorio Wilson Panda HIGH VALUE ASSOCIATE LAB BLOOD ORDERABLES Final Result PAVEL ROSADO [address] [facility] Department [place] [address] * (ABNORMAL) Pneumonia PCR with aerobic culture and Gram stain Sputum (10/18/2024 12:24 AM CDT) Direct Specimen Exam Stain: Abundant squamous epithelial cells seen indicating excessive oropharyngeal contamination. Culture will not be processed further. Please submit another specimen. Smear results called to and read back by: Jackie Leos MLT ([phone]) on 10/18/2024 05:15:52 by: Willian Christine Jr, MT Results phoned to and read back by: [id number] on 10/18/2024 05:25:35 by: [id number] Comment:Testing performed by : [facility], [address] [place] [address], [place]., [address] Direct Specimen Exam Molecular Analysis: Abundant squamous epithelial cells observed on Gram stain. Specimen will not be processed for rapid molecular analysis. PAVLE ROSADO Comment:Testing performed by : [facility], [address] [place]., [address] Report Final Report: This is the final report. (.) PAVEL ROSADO Comment:Testing performed by : [facility], [address] [place]., [address] Sputum 10/18/2024 12:2 4 AM CDT 10/18/2024 3:49 AM CDT Narrative PAVEL ROSADO - 10/18/2024 7:45 AM CDT When rapid molecular testing results are reported, testing completed using the Augment FilmArray Pneumonia Panel. This molecular assay detects: [...] performance characteristics have been confirmed by the [facility]. The performance of the FilmArray Pneumonia Panel has not been established for monitoring treatment of infection and bacterial nucleic acids may persist independent of organism viability. Honorio Mosqueda NP LAB MICROBIOLOGY - [facility] ORDERABLES Final Result PAVEL [address] [facility] Department [place] [address] * Strep pneumoniae antigen, urine [...] ENERAL ORDERABLES Final Result Performing Organization Address [facility] de Phone Number [facility] [address] [place] [address] * Legionella antigen Urine (10/18/2024 12:24 AM CDT) Legionella Ag Negative Negative Comment: Interpretive Data This test detects only Legionella pneumophila serogroup 1 antigen. Testing performed by [facility] ([phone]). Current interpretive data was last revised on 2019. Testing performed by: [facility], [address] [place]., [address] Urine 10/18/2024 12:2 4 AM CDT 10/18/2024 3:58 AM CDT Arabellagino Wilson Mosqueda LAB MICROBIOLOGY - G ENERAL ORDERABLES Final Result Performing Organization Address [facility] de Phone Number [place] [phone] [place] [address] * (ABNORMAL) Troponin T high-sensitivity 6-hour (10/17/2024 9:59 PM CDT) Trop T hs 118(H) <=22 ng/L Comment: Interpretive Data For further hscTnT resources including the diagnostic algorithm and an aid in interpretation, copy and paste this link: https://nrl.testcatalog.org/show/hsTrop Current Interpretive Data last revised 2020. Testing performed by: [facility], [address] [place] [address]., [address] Trop T hs delta See Comment ng/L PAVEL Comment: Inappropriate collection time to report a delta. Testing performed by: [facility], [address] [place] [address]., [address] Trop T hs pct delta See Comment % PAVEL ROSADO Comment: Inappropriate collection time to report a delta. Testing performed by: [facility], [address] [place] [address]., [address] Trop T hs interp See Comment PAVEL ROSADO Comment: Inappropriate collection time to report a delta. Testing performed by: [address] [address] Blood 10/17/2024 9:59 PM CDT 10/17/2024 10:04 PM CDT Eugenio Myrick DO LAB BLOOD ORDERABLES Final Result PAVEL ROSADO [address] [facility] Department [place] [address] * (ABNORMAL) eGFR (10/17/2024 9:59 PM CDT) [...] performed by: [facility], [address] [place] [address]., [address] Blood 10/17/2024 9:59 PM CDT 10/17/2024 10:04 PM CDT Honorio Mosqueda HIGH VALUE ASSOCIATE LAB BLOOD ORDERABLES Final Result Performing Organization Address [facility] Co de Phone Number PAVEL [address] [address] * (ABNORMAL) Calcium, ionized (10/17/2024 9:59 PM CDT) Calcium, Ionized 5.17(H) 4.50 - 5.10 mg/dL Blood 10/17/2024 9:59 PM CDT 10/18/2024 12:34 AM CDT Honorio Mosqueda HIGH VALUE ASSOCIATE LAB BLOOD ORDERABLES Final Result Performing Organization Address [facility] Co de Phone Number YUNIOR[address] [place] [address] * Vitamin D 25 hydroxy (10/17/2024 9:59 PM CDT) Vitamin D 25-OH 37.0 30.0 - 80.0 ng/mL Blood 10/17/2024 9:59 PM CDT 10/18/2024 12:[address] [facility] Honorio Mosqueda HIGH VALUE ASSOCIATE LAB BLOOD ORDERABLES Final Result Performing Organization Address City/[facility] Co de Phone Number [address] [address] * Phosphorus (10/17/2024 9:59 PM CDT) Phosphorus, pl 3.3 2.3 - 4.5 mg/dL Comment:Testing performed by : [facility], [address] [place] [address]., [address] Blood 10/17/2024 9:59 PM CDT 10/17/2024 10:04 PM CDT Honorio Mosqueda HIGH VALUE ASSOCIATE LAB BLOOD ORDERABLES Final Result Performing Organization Address City/[facility] Co de Phone Number PAVEL [address] [address] * (ABNORMAL) PTH (10/17/2024 9:59 PM CDT) [facility] PTH 130(H) 15 - 65 pg/mL Comment:Testing performed by : [address] [address] Blood 10/17/2024 9:59 PM CDT 10/17/2024 10:04 PM CDT Honorio Mosqueda HIGH VALUE ASSOCIATE LAB BLOOD ORDERABLES Final Result Performing Organization Address [facility] Co de Phone Number PAVEL [address] [address] * (ABNORMAL) Comprehensive metabolic panel (10/17/2024 9:59 PM CDT) [facility] Sodium 136 135 - 145 mmol/L Comment:Testing performed by : [address] [address] Potassium, pl 4.3 3.3 - 4.9 mmol/L PAVEL Comment:Testing performed by : [address] [address] Chloride 99 97 - 110 mmol/L PAVEL Comment:Testing performed by : [address] [address] CO2 22 22 - 32 mmol/L PAVEL Comment:Testing performed by : [address] [address] Anion gap 15 2 - 15 mmol/L PAVEL Comment:Testing performed by : [address] [address] BUN 65(H) 6 - 25 mg/dL PAVEL Comment:Testing performed by : [address] [address] Creatinine 5.22(H) 0.80 - 1.30 mg/dL PAVEL Comment:Testing performed by : [address] [address] Glucose 244(H) 70 - 199 mg/dL PAVEL [...] was last revised 2022. Testing performed by: [address] [address] Calcium 10.4(H) 8.5 - 10.3 mg/dL PAVEL Comment:Testing performed by : [address] [address] Bilirubin, total 0.4 0.1 - 1.2 mg/dL PAVEL Comment:Testing performed by : [address] [address] Protein, pl 7.0 6.5 - 8.5 g/dL PAVEL Comment:Testing performed by : [address] [address] Albumin 3.4(L) 3.5 - 5.0 g/dL PAVEL Comment:Testing performed by : [address] [address] Alk phos 88 40 - 130 Units/L PAVEL Comment:Testing performed by : [address] [address] ALT 21 7 - 55 Units/L PAVEL Comment:Testing performed by : [address] [address] AST 26 10 - 50 Units/L PAVEL Comment:Testing performed by : [address] [address] Blood 10/17/2024 9:59 PM CDT 10/17/2024 10:04 PM CDT Honorio Mosqueda NP LAB BLOOD ORDERABLES Final Result Performing Organization Address [facility] Co de Phone Number PAVEL [address] [address] * MRSA Only (Staphylococcus aureus) PCR Nasal (10/17/2024 8:16 PM CDT) Pathologist [facility] PCR Scrn, Methicillin resistant Staphylococcus aureus (MRSA) Not Detected Not Detected Comment: Interpretive Data Testing performed using Nucleic Acid Amplification with the [employer] Xpert MRSA NxG Assay. This assay detects target DNA from mecA, mecC and the SCCmec insertion site of Staphylococcus aureus using Real-Time PCR and has been cleared by the FDA. Performance characteristics have been verified by the [facility]. Current Interpretive Data was last revised on 2023 Testing performed by: [address] [address] Nasal 10/17/2024 8:16 PM CDT 10/17/2024 8:21 PM CDT Honorio Mosqueda NP LAB MICROBIOLOGY - G ENERAL ORDERABLES Final Result Performing Organization Address [facility] de Phone Number YUNIOR[address] [address] * (ABNORMAL) Troponin T high-sensitivity 4-hour (10/17/2024 5:47 PM CDT) Pathologist [facility] Trop T hs 128(H) <=22 ng/L Comment: Interpretive Data For further hscTnT resources including the diagnostic algorithm and an aid in interpretation, copy and paste this link: https://nrl.testcatalog.org/show/hsTrop Current Interpretive Data last revised 2020. Testing performed by: [address] [address] Trop T hs pct delta -10 % [facility] Comment:Testing performed by : [address] [address] Trop T hs interp Equivocal PAVEL Comment:Testing performed by : [address] [address] Blood 10/17/2024 5:47 PM CDT 10/17/2024 5:51 PM CDT Eugeniooly Myrick DO LAB BLOOD ORDERABLES Final Result Performing Organization Address [facility] Co de Phone Number [address] [place] [address] * Sepsis Lactate w/ Reflex (10/17/2024 5:47 PM CDT) Pathologist [facility] Sepsis Lactate 1.2 0.7 - 2.0 mmol/L Comment:Testing performed by : [address] [address] Blood 10/17/2024 5:47 PM CDT 10/17/2024 5:51 PM CDT Jonathan Angel Lentz DO LAB BLOOD ORDERABLES Final Result Performing Organization Address [facility] de Phone Number [address] [address] * (ABNORMAL) POC Blood Gas and Chemistries, Venous - (10/17/2024 4:27 PM CDT) Pathologist [facility] pH,ericka POC 7.47(H) 7.32 - 7.43 Comment:Testing performed by : [address] [address] pCO2, ericka POC 30(L) 40 - 50 mmHg PAVEL Comment:Testing performed by : [address] [address] pO2,ericka POC 77 mmHg PAVEL Comment: Interpretive Data No reference range established. Current interpretive data was last revised 2020. Testing performed by: [address] [address] HCO3, ericka (Calc) POC 22 20 - 30 mmol/L PAVEL Comment:Testing performed by : [facility], [address] [place] [address]., [address] Base excess, ericka POC -1 mmol/L PAVEL ROSADO Comment: Interpretive Data No reference range established. Current interpretive data was last revised 2020. Testing performed by: [facility], [address] [place] [address]., [address] Blood 10/17/2024 4:27 PM CDT 10/17/2024 4:27 PM CDT us Jonathan Angel Brownhu DO LAB POCT ORDERABLES - DEVIC E Final Result PAVEL ROSADO [address] [facility] Department [place] [address] * NM Pulmonary Perfusion Imaging [...] Oliverio Steinberg M.D. LB: JC Report ID: [id number] Reading Location: [id number] Procedure Note Oliverio Steinberg MD - 10/17/2024 [...] 10/17/2024 4:01 PM - Electronically signed by Oliveroi Steinberg M.D. LB: JC Report ID: [id number] Reading Location: [place] [address] Jonathan Lentz DO [facility] NM PROCEDURES Final Res ult * Blood culture Blood (10/17/2024 3:10 PM CDT) Report Final Report: No growth Comment:Testing performed by : [facility], [address] [place]., [address] Blood 10/17/2024 3:10 PM CDT 10/17/2024 7:29 [...] performance characteristics have been verified by the [facility] Microbiology Laboratory. For questions about this culture, contact the Microbiology Laboratory at [phone]. Interpretive data was last revised on 24. Jonathan Lentz DO LAB MICROBIOLOGY - GENERAL ORDERABLES Final Result PAVEL ROSADO [address] [facility] Department [place] [address] * Blood culture Blood (10/17/2024 3:10 PM CDT) Report Final Report: No growth Comment:Testing performed by : [facility], [address] [place]., [address] Blood 10/17/2024 3:10 PM CDT 10/17/2024 7:30 [...] performance characteristics have been verified by the [facility] Microbiology Laboratory. For questions about this culture, contact the Microbiology Laboratory at [phone]. Interpretive data was last revised on 24. Jonathan Lentz DO LAB MICROBIOLOGY - GENERAL ORDERABLES Final Result Performing Organization Address City/[facility]/ZIP Co de Phone Number [facility] [address] [place] [address] * (ABNORMAL) Troponin T high-sensitivity 2-hour (10/17/2024 2:55 PM CDT) Trop T hs 133(H) <=22 ng/L Comment: Interpretive Data For further hscTnT resources including the diagnostic algorithm and an aid in interpretation, copy and paste this link: https://nrl.testcatalog.org/show/hsTrop Current Interpretive Data last revised 2020. Testing performed by: [address] [address] Trop T hs pct delta -6 % PAVEL Comment:Testing performed by : [address] [address] Trop T hs interp Equivocal PAVEL Comment:Testing performed by : [address] [address] Blood 10/17/2024 2:55 PM CDT 10/17/2024 2:59 PM CDT Eugenio Myrick DO LAB BLOOD ORDERABLES Final Result Performing Organization Address [facility]/ZIP Co de Phone Number [facility] [address] [place], [place] [id number] * Influenza A/B, RSV, and COVID-19 PCR Nasopharyngeal (10/17/2024 2:55 PM CDT) COVID-19 RNA Negative Negative Comment:Testing performed by : [address] [address] Influenza A RNA Negative Negative PAVEL Comment:Testing performed by : [address] [address] Influenza B RNA Negative Negative PAVEL Comment:Testing performed by : [address] [address] RSV RNA Negative Negative PAVEL Comment: Interpretive data: Testing performed by [facility]. This test is performed using the [employer] Xpert Xpress CoV-2/Flu/RSV plus assay. This is a multiplex, real-time reverse transcriptase PCR assay intended for the qualitative detection of nucleic acid from SARS-CoV-2, influenza A, influenza B, and respiratory syncytial virus. This assay has been cleared by the [place] Food and Drug administration. The performance characteristics have been verified by the [facility]. Results must be considered in the clinical context, and a negative result does not rule out infection. Interpretive Data last revised 2023 Testing performed by: [address] [address] Nasopharyngeal 10/17/2024 2: 55 PM CDT 10/17/2024 2:58 PM CDT Narrative PAVEL - 10/17/2024 3:38 PM CDT Is the Patient experiencing symptoms consistent with COVID?->Yes Li [facility] LAB MICROBIOLOGY - GENERAL ORDE BERTA Final Result Performing Organization Address City/[facility]/ZIP Co de Phone Number [facility] [address] [facility] Department [place] [address] * (ABNORMAL) Sepsis Lactate w/ Reflex (10/17/2024 2:55 PM CDT) Pathologist [facility] Sepsis Lactate 2.1(H) 0.7 - 2.0 mmol/L Comment:Testing performed by : [address] [address] Blood 10/17/2024 2:55 PM CDT 10/17/2024 2:58 PM CDT Jonathan Lnetz DO LAB BLOOD ORDERABLES Final Result Performing Organization Address City/[facility]/ZIP Co de Phone Number PAVEL ROSADO [address] [facility] Department [place] [address] * (ABNORMAL) Pro B-type natriuretic peptide (10/17/2024 [...] performed by: [facility], [address] [place] [address]., [address] Blood 10/17/2024 2:55 PM CDT 10/17/2024 2:59 PM CDT Jonathan Lentz DO LAB BLOOD ORDERABLES Final Result Performing Organization Address City/State/[facility] Co de Phone Number PAVEL ROSADO [address] [facility] Department [place] [address] * XR Chest 1 Vw Portable (if [...] Virginie Conrad D.O. PS: PS Report ID: [id number] Reading Location: [id number] Procedure Note Virginie Conrad, DO - 10/17/2024 [...] Virginie Conrad D.O. PS: PS Report ID: [id number] Reading Location: [place] [address] Jonathan Lentz DO IMG XR PROCEDURES Final Res ult * ECG 12 lead (10/17/2024 1:15 PM CDT) Ventricular Rate EKG/Min 101 BPM [facility] Atrial Rate 101 BPM [facility] DC-Interval (MSEC) 192 ms [facility] QRS-Interval (MSEC) 154 ms [facility] QT-Interval (MSEC) 390 ms [facility] QTc 505 ms [facility] P [place] 85 degrees [facility] R [place] 264 degrees [facility] T [place] 59 degrees [facility] Diagnosis Sinus tachycardia with Premature supraventricular complexes Right bundle branch block Abnormal ECG When compared with ECG of 12-JAN-2004 11:38, Premature supraventricular complexes are now Present Right bundle branch block is now Present Confirmed by ASHLEY WYNNE M.D. ([id number]) on 10/18/2024 9:51:49 PM [facility] 10/17/2024 1:15 PM CDT 10/18/2024 9:51 PM CDT Jonathan Lentz DO ECG ORDERABLES Final Resul t [facility] * (ABNORMAL) Troponin T high-sensitivity series (baseline, 2hr, 4hr, 6hr) (10/17/2024 1:12 PM CDT) Trop T hs 142(H) <=22 ng/L Comment: Interpretive Data For further hscTnT resources including the diagnostic algorithm and an aid in interpretation, copy and paste this link: https://nrl.testcatalog.org/show/hsTrop Current Interpretive Data last revised 2020. Testing performed by: [address] [address] Blood 10/17/2024 1:12 PM CDT 10/17/2024 1:40 PM CDT Jonathan Lentz DO LAB BLOOD ORDERABLES Final Result PAVEL [address] [place] [address] * (ABNORMAL) eGFR (10/17/2024 1:12 [...] performed by: [facility], [address] [place] [address]., [address] Blood 10/17/2024 1:12 PM CDT 10/17/2024 1:40 PM CDT Jonathan Lentz DO LAB BLOOD ORDERABLES Final Result PAVEL [facility] Department [place] [address] * (ABNORMAL) Differential, auto (10/17/2024 1:12 PM CDT) Neutrophil abs 13.0(H) 1.5 - 6.5 K/cumm Comment:Testing performed by : [address] [address] Imm gran abs 0.1 0.0 - 0.1 K/cumm PAVEL Comment:Testing performed by : [address] [address] Lymphocyte abs 0.6(L) 0.8 - 3.3 K/cumm PAVEL Comment:Testing performed by : [address] [address] Monocyte abs 1.5(H) 0.2 - 0.8 K/cumm PAVEL Comment:Testing performed by : [address] [address] Eosinophil abs 0.0 0.0 - 0.5 K/cumm PAVEL Comment:Testing performed by : [address] [address] Basophil abs 0.0 0.0 - 0.1 K/cumm PAVEL Comment:Testing performed by : [address] [address] Neutrophil pct 85.3 % PAVEL Comment: Interpretive Data Percent cell count reference ranges are not reported, since discordance with absolute values may lead to misinterpretation of CBC data. Current Interpretive Data was last revised on 2017. Testing performed by: [address] [address] Imm gran pct 0.6 % PAVEL Comment: Interpretive Data Percent cell count reference ranges are not reported, since discordance with absolute values may lead to misinterpretation of CBC data. Current Interpretive Data was last revised on 2017. Testing performed by: [address] [address] Lymphocyte pct 3.9 % PAVEL Comment: Interpretive Data Percent cell count reference ranges are not reported, since discordance with absolute values may lead to misinterpretation of CBC data. Current Interpretive Data was last revised on 2017. Testing performed by: [address] [address] Monocyte pct 10.0 % PAVEL Comment: Interpretive Data Percent cell count reference ranges are not reported, since discordance with absolute values may lead to misinterpretation of CBC data. Current Interpretive Data was last revised on 2017. Testing performed by: [address] [address] Eosinophil pct 0.1 % PAVEL Comment: Interpretive Data Percent cell count reference ranges are not reported, since discordance with absolute values may lead to misinterpretation of CBC data. Current Interpretive Data was last revised on 2017. Testing performed by: [address] [address] Basophil pct 0.1 % PAVEL Comment: Interpretive Data Percent cell count reference ranges are not reported, since discordance with absolute values may lead to misinterpretation of CBC data. Current Interpretive Data was last revised on 2017. Testing performed by: [address] [address] Blood 10/17/2024 1:12 PM CDT 10/17/2024 1:40 PM CDT Jonathan Lentz DO LAB BLOOD ORDERABLES Final Result [facility] [address] [facility] Department [place] [address] * (ABNORMAL) CBC with auto differential (10/17/2024 1:12 PM CDT) WBC 15.3(H) 3.8 - 9.9 K/cumm Comment:Testing performed by : [address] [address] Hgb 9.7(L) 13.0 - 17.5 g/dL PAVEL Comment:Testing performed by : [address] [address] Hct 29.8(L) 38.9 - 50.3 % PAVEL Comment:Testing performed by : [address] [address] Plt 348 150 - 400 K/cumm PAVEL Comment:Testing performed by : [address] [address] MPV 9.8 9.1 - 12.3 fL PAVEL Comment:Testing performed by : [address] [address] RBC 3.24(L) 4.30 - 5.80 M/cumm PAVEL Comment:Testing performed by : [address], [address] MCV 92.0 81.3 - 96.4 fL PAVEL Comment:Testing performed by : [address] [address] MCH 29.9 27.1 - 33.3 pg PAVEL Comment:Testing performed by : [address] [address] MCHC 32.6 32.3 - 35.7 g/dL PAVEL Comment:Testing performed by : [address] [address] RDW CV 15.0(H) 11.1 - 14.9 % PAVEL Comment:Testing performed by : [address] [address] RDW SD 51.2(H) 35.7 - 48.1 fL PAVEL Comment:Testing performed by : [address] [address] NRBC abs 0.00 0.00 - 0.01 K/cumm PAVEL Comment:Testing performed by : [address], [address] Blood 10/17/2024 1:12 PM CDT 10/17/2024 1:40 PM CDT Jonathan Lentz DO LAB BLOOD ORDERABLES Final Result PAVEL [address] [facility] Department [place] [address] * Magnesium (10/17/2024 1:12 PM CDT) [facility] Magnesium 1.5 1.4 - 2.5 mg/dL Comment:Testing performed by : [address] [address] Blood 10/17/2024 1:12 PM CDT 10/17/2024 1:40 PM CDT Jonathan Ortiz Lentz DO LAB BLOOD ORDERABLES Final Result PAVEL [facility] [place] [address] * (ABNORMAL) Comprehensive metabolic panel (10/17/2024 1:12 PM CDT) [facility] Sodium 136 135 - 145 mmol/L Comment:Testing performed by : [address] [address] Potassium, pl 4.5 3.3 - 4.9 mmol/L PAVEL Comment: Hemolyzed; Potassium value may be falsely elevated by as much as 1.0 mmol/L. Suggest redraw and reanalysis. Testing performed by: [address] [address] Chloride 98 97 - 110 mmol/L PAVEL Comment:Testing performed by : [address] [address] CO2 23 22 - 32 mmol/L PAVEL Comment:Testing performed by : [address] [address] Anion gap 15 2 - 15 mmol/L PAVEL Comment:Testing performed by : [address] [address] BUN 56(H) 6 - 25 mg/dL PAVEL Comment:Testing performed by : [address] [address] Creatinine 4.86(H) 0.80 - 1.30 mg/dL PAVEL Comment:Testing performed by : [address] [address] Glucose 119 70 - 199 mg/dL PAVEL [...] was last revised 2022. Testing performed by: [address] [address] Calcium 10.5(H) 8.5 - 10.3 mg/dL PAVEL Comment:Testing performed by : [address] [address] Bilirubin, total 0.6 0.1 - 1.2 mg/dL PAVEL Comment:Testing performed by : [address] [address] Protein, pl 7.3 6.5 - 8.5 g/dL PAVEL Comment:Testing performed by : [address] [address] Albumin 3.6 3.5 - 5.0 g/dL PAVEL Comment:Testing performed by : [address] [address] Alk phos 91 40 - 130 Units/L PAVEL Comment:Testing performed by : [address] [address] ALT 22 7 - 55 Units/L PAVEL Comment:Testing performed by : [address] [address] AST 29 10 - 50 Units/L PAVEL Comment: Hemolyzed; result may be falsely elevated Testing performed by: [address] [address] Blood 10/17/2024 1:12 PM CDT 10/17/2024 1:40 PM CDT Jonathan Angel Brownhu LAB BLOOD ORDERABLES Final Result PAVEL MH [address] [facility] Department [place] [address] from Last 3 Months Insurance [facility] MED[facility] ADVANTAGE [facility] Address: [place] [id number] [facility] MEDICARE ADVANTAGE [facility] Address: [address] [address] [place] [address] [facility] MEDIC[facility] ADVANTAGE Advance Directives For more information, please contact: [phone] * Full Code (Latest Code Status on File) Date Activated Date Inactivated Comments 10/17/2024 7:52 PM 10/27/2024 6:57 PM Care Teams Teller Head Relationship Specialty Start Date End Date Soraya Jauregui MD [address] [place] [address] PCP - General Internal Medicine 03/29/24
--- NOTE | 2024-12-23 17:27 | ED_ITS ---
HPI - SOB/Dyspnea General Chief Complaint: Shortness of Breath/Dyspnea <Sin Julian III, DO - Last Filed: 12/23/24 18:35> Stated Complaint: Shortness of breath/ indigestion , RF patient <Sin Julian III, DO - Last Filed: 12/23/24 18:35> Time Seen by Provider: 12/23/24 16:48 <Sin Julian III, DO - Last Filed: 12/23/24 18:35> History of Present Illness HPI Narrative: Pt presents with sob with exertion for quite some time but getting worse. Pt denies chest pain. Pt is dialysis pt and had dialysis today. states he sees Dr Orellana and he has been in a fib with rvr rate in 120s-130's and he is starting on medicine to try to concert him. says that he has tried other meds to slow rate without success. Pt als has history of copd. Pt has some low abdominal pain for several days but denies constipation or diarrhea or urinary symptoms. <Sin Julian III, DO - Last Filed: 12/23/24 18:35> Related Data Home Medications: Home Medications ?Medication ?Instructions ?Recorded ?Confirmed ?Last Taken ?Type atorvastatin 10 mg tablet 10 mg PO DAILY 04/02/21 10/01/21 10/01/21 History calcitriol 0.25 mcg capsule 0.25 mcg PO DAILY 04/02/21 10/01/21 10/01/21 History hydralazine 25 mg tablet 25 mg PO Q12H 04/02/21 10/01/21 10/01/21 History ipratropium 20 mcg-albuterol 100 1 spray inhalation PRN PRN 04/02/21 10/01/21 10/01/21 History mcg/actuation mist for inhalation Bronchodilation (Combivent Respimat) aspirin 81 mg tablet 81 mg PO DAILY 05/04/21 10/01/21 10/01/21 History multivit with minerals-iron 18 1 tablet PO DAILY 05/04/21 10/01/21 10/01/21 History mg-folic ac 400 mcg-vit K 25 mcg tablet (Adults Multivitamin) omega-3 fatty acids-vitamin E 2 cap PO Q12H 10/02/21 03/01/22 03/01/22 History 1,000 mg capsule sodium bicarbonate 650 mg tablet 1,300 mg PO TID 05/04/21 10/01/21 10/01/21 History <Sin Julian III, DO - Last Filed: 12/23/24 18:35> Allergies/Adverse Reactions: Allergies Allergy/AdvReac Type Severity Reaction Status Date / Time No Known Allergies Allergy Unverified 12/23/24 15:49 <Sin Julian III, DO - Last Filed: 12/23/24 18:35> Review of Systems 2 Review of Systems: All systems reviewed & are unremarkable except as noted in HPI and below <Sin Jluian III, DO - Last Filed: 12/23/24 18:35> PMFSH Past Medical History Medical History: Medical History (Updated 12/23/24 @ 19:43 by Lorrie Miranda MD) Coronary disease Gout Prostate cancer CKD (chronic kidney disease) stage V COPD (chronic obstructive pulmonary disease) History of heart attack 2009 Hyperlipidemia Hypertension <Sin Julian III, DO - Last Filed: 12/23/24 18:35> Surgical History Surgical History: Surgical History H/O prostatectomy History of coronary artery stent placement x1 <Sin Julian III, DO - Last Filed: 12/23/24 18:35> Family History Family History: Family History Father Family history of primary malignant neoplasm of liver <Sin Echolsver III, DO - Last Filed: 12/23/24 18:35> Social History Social History: Social History Smoking packs per day: 2 Smoking cigarettes per day: 40.0 Years smoked: 50 Smoking pack-years: 100.00 Smoking status: Current every day smoker Tobacco type: cigarettes Additional smoking assessment comments: quit 3 weeks ago Alcohol intake: never Drinks per week: 3 Substance use: never Substance use type: does not use Living arrangements: with family Spiritual care concerns: No <Sin Echolsver III, DO - Last Filed: 12/23/24 18:35> Exam 2 Const: General: healthy appearing and no acute distress <Sin Echolsver III, DO - Last Filed: 12/23/24 18:35> Nutritional Appearance: well nourished <Sin Alden Julian III, DO - Last Filed: 12/23/24 18:35> Orientation/consciousness: patient oriented x3 <Sin Alden Julian III, DO - Last Filed: 12/23/24 18:35> Limitations: no limitations <Sin Alden Julian III, DO - Last Filed: 12/23/24 18:35> Chest: Chest palpation & inspection: normal inspection of the chest < Sin Alden Julian III, DO - Last Filed: 12/23/24 18:35> Resp: Effort & Inspection: normal respiratory effort <Sin Alden Julian III, DO - Last Filed: 12/23/24 18:35> Auscultation: clear to auscultation bilaterally <Sin Alden Julian III, DO - Last Filed: 12/23/24 18:35> Cardio: Rate: tachycardic <Sin Alden Julian III, DO - Last Filed: 12/23/24 18:35> Rhythm: regular rhythm <Sin Alden Julian III, DO - Last Filed: 12/23/24 18:35> GI: GI Palp: Yes Soft to palpation and No Tenderness to palpation present (GI) <Sin Alden Julian III, DO - Last Filed: 12/23/24 18:35> Auscultation: normal bowel sounds <Sin Alden Julian III, DO - Last Filed: 12/23/24 18:35> Skin: General skin exam: normal color <Sin Alden Julian III, DO - Last Filed: 12/23/24 18:35> Rashes: no rashes <Sin Alden Julian III, DO - Last Filed: 12/23/24 18:35> Wounds: no wounds <Sin Alden Julian III, DO - Last Filed: 12/23/24 18:35> Neuro: General: patient oriented x3, moves all extremities and no focal motor deficits <Sin Alden Julian III, DO - Last Filed: 12/23/24 18:35> Speech: normal speech <Sin Alden Julian III, DO - Last Filed: 12/23/24 18:35> Extrem: General: normal to inspection and no clubbing, cyanosis or edema < Sin Alden Julian III, DO - Last Filed: 12/23/24 18:35> Psych: Mental Status: mental status grossly normal <Sin Alden Julian III, DO - Last Filed: 12/23/24 18:35> Affect: normal affect <Sin Alden Julian III, DO - Last Filed: 12/23/24 18:35> Attitude: cooperative <Sin Alden Julian III, DO - Last Filed: 12/23/24 18:35> Course Course Emergency Course: Patient signed out to me pending noncontrast CT abdomen. I was informed there had already been discussion by previous ED attending noting the positive DImer (patient / declined V/Q scan) and the positive troponin (better than previous). Aspirin ordered for the positive tropoin. CT with gallstones but also concern for inflammatory changes adjacent. Ultrasound ordered. Patient had been placed on oxygen for comfort but was not hypoxic. He was able to ambulate per RN without significant change in heart rate or pulse ox though he did become tachypneic which improved upon being seated. Patient notes that he has been told he has a pleural effusion previously. No prior thoracentesis and he follows with a industrial hygiene engineer and asphalt mixer. There does not appear to be a clear indication for drainage today although we discussed that he may experiencing symptomatic relief especially if worsening in the future. Ultrasound with concern for possible cholecystitis however patient is without leukocytosis, elevated liver enzymes, and I did perform an abdominal exam and patient has negative Mathur sign. Advised low fat diet and outpatient follow up with surgeon as necessary. ED return precautions given and I did confirm that patient has dialysis Thursday, Thursday, and Thursday and this is still to be performed on Thursday despite the holiday. Patient and stable for and ready for discharge. <Lorrie Miranda MD - Last Filed: 12/23/24 20:43> Vital Signs Vital signs: Vital Signs Temperature 97.9 F 12/23/24 15:54 Pulse Rate 127 H 12/23/24 15:54 Blood Pressure 117/84 12/23/24 15:54 Pulse Oximetry 97 12/23/24 15:54 Oxygen Delivery Room Air 12/23/24 15:54 Temperature 97.8 F 12/23/24 18:17 Pulse Rate 129 H 12/23/24 18:17 Respiratory Rate 29 H 12/23/24 18:17 Blood Pressure 165/89 H 12/23/24 18:17 Pulse Oximetry 95 12/23/24 19:42 Oxygen Delivery Room Air 12/23/24 19:42 Oxygen Flow Rate 2 12/23/24 17:14 <Sin Julian III, DO - Last Filed: 12/23/24 18:35> Vital Signs Temperature 97.9 F 12/23/24 15:54 Pulse Rate 127 H 12/23/24 15:54 Blood Pressure 117/84 12/23/24 15:54 Pulse Oximetry 97 12/23/24 15:54 Oxygen Delivery Room Air 12/23/24 15:54 Temperature 97.8 F 12/23/24 18:17 Pulse Rate 129 H 12/23/24 18:17 Respiratory Rate 29 H 12/23/24 18:17 Blood Pressure 165/89 H 12/23/24 18:17 Pulse Oximetry 95 12/23/24 19:42 Oxygen Delivery Room Air 12/23/24 19:42 Oxygen Flow Rate 2 12/23/24 17:14 <Lorrie Miranda MD - Last Filed: 12/23/24 20:43> MDM - SOB/Dyspnea MDM Narrative Medical decision making narrative: Pt presents with sob with exertion. Pt has renal failure and had dialysis today. Pt has a fib per with rapid rate. Pt in sinus rhythm here with rate 127. Will get labs and cxr. trop slight elevated but is chronically. renal numbers baseline, cxr unremarkable. will give neb and will get vq to rule out PE with renal failure history. informed patient and about vq and they do not want it. says he has been short of breath and tachycardic for a long time and is on eliquis and don't want to wait on isotope. they would like a ct for the low adominal pain that he has had for several days. will turn over to Dr Miranda at [address] <Sin Julian III, DO - Last Filed: 12/23/24 18:35> Lab Data Result diagrams: 12/23/24 16:05 12/23/24 16:05 <Sin Julian III, DO - Last Filed: 12/23/24 18:35> Labs: Lab Results 12/23/24 Range/Units 16:05 WBC 9.6 (4.5-10.0) K/mm3 RBC 3.55 L (4.6-6.20) M/mm3 Hgb 10.7 L (14.0-18.0) g/dL Hct 34.8 L (42.0-52.0) % MCV 98.0 (80-100) fl MCH 30.1 (26-34) pg MCHC 30.7 L (32-36) g/dl RDW 15.7 H (11.5-14.5) % Plt Count 404 H D (150-375) k/mm3 MPV 8.8 (7.4-10.4) fl Immature Gran % (Auto) 0.3 (0-0.5) % Neut % (Auto) 70.8 (45.5-73.1) % Lymph % (Auto) 16.1 L (18.3-44.2) % [facility] % (Auto) 9.6 H (2.6-8.5) % Eos % (Auto) 2.5 (0-4.4) % Baso % (Auto) 0.7 (0.2-1.2) % Lymph # (Auto) 1.54 (0.9-3.2) K/mm3 [facility] # (Auto) 0.9 H (0.1-0.6) K/mm3 Eos # (Auto) 0.2 (0-0.3) K/mm3 Baso # (Auto) 0.1 (0.0-0.1) K/mm3 Abs Immat Gran (auto) 0.03 (0.00-0.031) K/mm3 Absolute Neuts (auto) 6.8 H (1.3-6.7) K/mm3 Absolute Nucleated RBC 0.000 (0.0-0.012) K/mm3 Nucleated RBC % 0.0 (0.0-0.2) % PT 17.0 H (11.1-14.7) Seconds INR 1.3 APTT 42.6 H (22.3-36.8) Seconds D-Dimer 0.69 H (<0.48) ug/mL Sodium 138 (137-145) mmol/L Potassium 3.7 (3.4-5.0) mmol/L Chloride 100 (98-107) mmol/L Carbon Dioxide 28 (22-30) mmol/L Anion Gap 10 (4-12) mmol/L BUN 23 H D (9-20) mg/dL Creatinine 2.69 H (0.7-1.3) mg/dL Estim Creat Clear Calc 31 ml/min Estimated GFR 23 L (59 - ) Glucose 101 (65-110) mg/dL Calcium 8.7 (8.4-10.2) mg/dL Total Bilirubin 1.2 (0.2-1.3) mg/dL AST 34 (17-59) U/L ALT 29 (6-50) U/L Alkaline Phosphatase 76 (38-126) U/L Troponin I 0.039 H* (0.000-0.034) ng/mL Total Protein 7.0 (6.3-8.2) g/dL Albumin 4.4 (3.5-5.1) g/dL <Sin Julian III, DO - Last Filed: 12/23/24 18:35> Lab Results 12/23/24 Range/Units 16:05 WBC 9.6 (4.5-10.0) K/mm3 RBC 3.55 L (4.6-6.20) M/mm3 Hgb 10.7 L (14.0-18.0) g/dL Hct 34.8 L (42.0-52.0) % MCV 98.0 (80-100) fl MCH 30.1 (26-34) pg MCHC 30.7 L (32-36) g/dl RDW 15.7 H (11.5-14.5) % Plt Count 404 H D (150-375) k/mm3 MPV 8.8 (7.4-10.4) fl Immature Gran % (Auto) 0.3 (0-0.5) % Neut % (Auto) 70.8 (45.5-73.1) % Lymph % (Auto) 16.1 L (18.3-44.2) % [facility] % (Auto) 9.6 H (2.6-8.5) % Eos % (Auto) 2.5 (0-4.4) % Baso % (Auto) 0.7 (0.2-1.2) % Lymph # (Auto) 1.54 (0.9-3.2) K/mm3 [facility] # (Auto) 0.9 H (0.1-0.6) K/mm3 Eos # (Auto) 0.2 (0-0.3) K/mm3 Baso # (Auto) 0.1 (0.0-0.1) K/mm3 Abs Immat Gran (auto) 0.03 (0.00-0.031) K/mm3 Absolute Neuts (auto) 6.8 H (1.3-6.7) K/mm3 Absolute Nucleated RBC 0.000 (0.0-0.012) K/mm3 Nucleated RBC % 0.0 (0.0-0.2) % PT 17.0 H (11.1-14.7) Seconds INR 1.3 APTT 42.6 H (22.3-36.8) Seconds D-Dimer 0.69 H (<0.48) ug/mL Sodium 138 (137-145) mmol/L Potassium 3.7 (3.4-5.0) mmol/L Chloride 100 (98-107) mmol/L Carbon Dioxide 28 (22-30) mmol/L Anion Gap 10 (4-12) mmol/L BUN 23 H D (9-20) mg/dL Creatinine 2.69 H (0.7-1.3) mg/dL Estim Creat Clear Calc 31 ml/min Estimated GFR 23 L (59 - ) Glucose 101 (65-110) mg/dL Calcium 8.7 (8.4-10.2) mg/dL Total Bilirubin 1.2 (0.2-1.3) mg/dL AST 34 (17-59) U/L ALT 29 (6-50) U/L Alkaline Phosphatase 76 (38-126) U/L Troponin I 0.039 H* (0.000-0.034) ng/mL Total Protein 7.0 (6.3-8.2) g/dL Albumin 4.4 (3.5-5.1) g/dL <Lorrie Miranda MD - Last Filed: 12/23/24 20:43> Discharge Plan Discharge Clinical Impression: Pleural effusion on right, Cholelithiasis, Calculus of both kidneys, Shortness of breath <Sin Ruano Julian III, DO - Last Filed: 12/23/24 18:35> Patient Disposition: Home <Sin Julian III, DO - Last Filed: 12/23/24 18:35> Condition: Stable <Sin Julian III, DO - Last Filed: 12/23/24 18:35> Instructions: Antibiotic Form, Gallstones (ED), Kidney Stones (ED), Pleural Effusion (DC), Shortness of Breath (ED) <Sin Julian III, DO - Last Filed: 12/23/24 18:35> Additional Instructions: As we discussed, it is important that you follow-up with your industrial hygiene engineer and asphalt mixer and primary care physician. There may be consideration of a thoracentesis to drain the pleural effusion that is seen if it is causing you to be symptomatic however it appears stable at present. You evidence of kidney stones within your kidneys are unlikely to be painful unless they start to move. Your ultrasound showed a 5 gallstones however there is low suspicion for a surgical condition known as cholelithiasis. Try to limit eating fatty/greasy foods but if you do experience symptoms in your mid/upper abdomen or on your right upper abdomen, you could consider outpatient follow-up with a general surgeon listed below. Continue doing your dialysis as scheduled. Return to the emergency department with any new or worsening symptoms. <Sin Julian III, DO - Last Filed: 12/23/24 18:35> Patient Language: [place] <Sin Julian III, DO - Last Filed: 12/23/24 18:35> Prescriptions: No Action sodium bicarbonate 650 mg Tablet 1,300 mg PO TID aspirin 81 mg Tablet 81 mg PO DAILY omega-3 fatty acids-vitamin E 1,000 mg Capsule 2 cap PO Q12H Adults Multivitamin 18 mg iron-400 mcg-25 mcg Tablet 1 tablet PO DAILY atorvastatin 10 mg tablet 10 mg PO DAILY hydralazine 25 mg tablet 25 mg PO Q12H calcitriol 0.25 mcg capsule 0.25 mcg PO DAILY Combivent Respimat 20-100 mcg/actuation mist 1 spray INHALATION PRN PRN (Reason: Bronchodilation) Rx Instructions: May take up to 4 times a day furosemide 40 mg Tablet 40 mg PO DAILY 30 Days Qty: 30 0RF amlodipine [Norvasc] 5 mg Tablet 5 mg PO DAILY 30 Days Qty: 30 0RF carvedilol [Coreg] 6.25 mg Tablet 6.25 mg PO Q12HR 30 Days Qty: 60 0RF hydrocodone-acetaminophen 5-325 mg tablet 1 tablet PO Q12H PRN (Reason: pain) Qty: 10 0RF cyclobenzaprine 10 mg tablet 10 mg PO BID PRN (Reason: muscle spasm) Qty: 14 0RF amoxicillin-pot clavulanate 875-125 mg tablet 1 tablet PO Q12H 7 Days Qty: 14 0RF azithromycin 250 mg tablet See Rx Instructions .ROUTE .COMPLEX Qty: 6 0RF Rx Instructions: For 250 mg dose pack: take 500 mg today (day 1), then 250 mg for 4 days (days 2-5) <Sin Julian III, DO - Last Filed: 12/23/24 18:35> Follow-up/Referrals: Orlando Porter MD [Physician] - Juventino,Soraya Bryson MD [Primary Care Provider] - Yuniel Valdez DO [Physician] - <Sin Julian III, DO - Last Filed: 12/23/24 18:35> Time of Disposition: 20:32 <Sin Julian III, DO - Last Filed: 12/23/24 18:35> 20:32 <Lorrie Miranda MD - Last Filed: 12/23/24 20:43>
[2024-12-23] MEDS: IPRATROPIUM 0.5 MG/ALBUTEROL SULFATE 2.5 MG AMPUL.NEB 3 ML INHALATION (17:28)
--- NOTE | 2024-12-23 19:19 | PC.NURSE ---
Report received from IVANNA Mejia. Assumed care of patient at this time.
[2024-12-23] MEDS: ASPIRIN 81 MG CHEWABLE TABLET 324 MG PO (19:25)
--- NOTE | 2024-12-23 19:42 | PC.NURSE ---
Patient states he does not normally wear oxygen at home. Patient did perform ambulation assessment with walking pulse ox. Patient tolerated well. patient remained on RA and O2 Sats went from 100% to 94%. Patient stated he felt okay. Patient was assisted back to his stretcher and reconnected to monitor. ERP notified of assessment results.
--- NOTE | 2024-12-23 20:13 | PC.NURSE ---
Patient and SO updated that waiting for radiologist read on US. Patient requesting to speak with ERP. notified.
== END 2024-12-23 20:48 | disposition home or self-care (01) ==
PROVIDERS: Emergency Medicine; Emergency Provider Student in an Organized Health Care Education/Training Program; PCP Internal Medicine
DX: J90 Pleural effusion, not elsewhere classified (principal); K80.20 Calculus of gallbladder without cholecystitis without obstruction; N20.0 Calculus of kidney; Z85.46 Personal history of malignant neoplasm of prostate; N18.5 Chronic kidney disease, stage 5; E78.5 Hyperlipidemia, unspecified; I12.0 Hypertensive chronic kidney disease with stage 5 chronic kidney disease or end stage renal disease; F17.210 Nicotine dependence, cigarettes, uncomplicated
CPT/HCPCS: 36415; 71045; 74176; 76705; 80053; 84484; 85025; 85380; 85610; 85730; 93005; 94640; 99284; A9270